=== PATIENT | female | born 1995 | race Caucasian/White ===

== ENCOUNTER 2016-10-24 04:20 | Inpatient (IN) | payer BC, OTHER ==
[~2016-10-24] VITALS: Ht 160 cm; Wt 70.0 kg
[~2016-10-24 04:20] MED LIST: BCPILLS PO; ESCI1TAB10 PO
[2016-10-24] MEDS ORDERED: KETOROLAC TROMETHAMINE 30 MG/ML VIAL IV STA (04:36)
[2016-10-24] MEDS ORDERED: SODIUM CHLORIDE 0.9% 1000ML 1,000 ML IV STA (04:36)
[2016-10-24] MEDS ORDERED: ONDANSETRON INJ 2 MG/ML 2 ML VIAL IV STA ×3 (04:36→07:46)
[2016-10-24] MEDS ORDERED: HYDROmorphone INJ 1 MG/ML SYR IV STA ×2 (04:36→05:55)
--- NOTE | 2016-10-24 04:42 | EMERGENCY ROOM VISIT NOTE ---
History Report prepared by Sofia: Rox Stewart Under the Supervision of: Dr. Rey Noel M.D. First contact with patient: 04:28 Chief Complaint: FLANK PAIN Stated Complaint: SEVERE PAIN LEFT SIDE,KIDNEY,VOMITING History of Present Illness The patient is a 21 year old female who presents to the Emergency Room with complaints of severe and persistent left flank pain starting about 4 and a half hours ago. She notes pain radiation into her groin. She also complains of nausea and vomiting. She took anti-nausea medication but denies taking any medication for the pain. She has a previously known 1.5 mm intrarenal stone on CT scan. The patient denies chest pain, shortness of breath, or any other complaints. She denies any chance of . Source of History: patient Onset: about 4 and a half hours ago Position: other (left flank) Symptom Intensity: severe Timing: other (persistent) Associated Symptoms: + nausea, + vomiting, No SOB, No chest pain Review of Systems See HPI for pertinent positives & negatives. A total of 10 systems reviewed and were otherwise negative. Past Medical & Surgical Medical Problems: (1) Abdominal pain (2) Abdominal pain (3) Cramping complicating , antepartum (4) Elevated blood pressure complicating , antepartum (5) Hyperthyroidism (6) Mild preeclampsia (7) Nausea & vomiting (8) Nausea & vomiting (9) No leakage of amniotic fluid into vagina (10) Ovarian cyst (11) (12) (13) with abdominal pain of right lower quadrant, antepartum (14) labor (15) Second trimester (16) Uterine contractions (17) Vaginitis complicating current (18) Vomiting complicating (19) Vomiting complicating Family History Cancer Diabetes mellitus FH: seizures Hypertension Kidney stone Social History Smoking Status: Never Smoker Alcohol Use: occasionally Drug Use: none Marital Status: in relationship Housing Status: lives with family Occupation Status: employed Current/Historical Medications Scheduled Control Pills ( Control Pills), 1 TAB PO WK Ciprofloxacin Hcl (Cipro), 500 MG PO BID Escitalopram Oxalate (Lexapro), 40 MG PO QAM Allergies Coded Allergies: No Known Allergies (Unverified , 10/24/16) Physical Exam Vital Signs Date Time Temp Pulse Resp B/P Pulse Ox O2 Delivery O2 Flow Rate FiO2 10/24/16 06:24 98 20 114/75 98 Room Air 10/24/16 04:23 36.8 102 20 113/78 98 Room Air Physical Exam GENERAL: Patient is uncomfortable appearing and in moderate distress. HEENT: No acute trauma, normocephalic atraumatic, mucous membranes moist, no nasal congestion, no scleral icterus. NECK: No stridor, no adenopathy, no meningismus, trachea is midline. LUNGS: No dyspnea. Clear to auscultation and equal bilaterally. No wheeze, no rhonchi. HEART: Regular rate and rhythm. No murmurs, rubs, gallops appreciated. ABDOMEN: Soft, nontender, bowel sounds positive, no masses appreciated, no peritonitis. BACK: No midline tenderness, no CVA tenderness EXTREMITIES: Normal motion all extremities, no cyanosis, no edema. NEUROLOGIC: Alert and oriented, no acute motor or sensory deficits, no focal weakness, cranial nerves grossly intact. SKIN: No rash, no jaundice, no diaphoresis. Medical Decision & Procedures ER Provider Diagnostic Interpretation: US results as stated below per interpretation by me and the radiologist: US RENAL Prior from 06/26/16 No hydronephrosis. Small 2-4 millimeters renal calculi bilaterally. Nonobstructing. Decompressed urinary bladder. Radiologist: Lilian Vickers MD Laboratory Results 10/24/16 04:35 Red Blood Count 5.20, Mean Corpuscular Volume 86.3, Mean Corpuscular Hemoglobin 30.6, Mean Corpuscular Hemoglobin Concent 35.4, Mean Platelet Volume 10.5, Neutrophils (%) (Auto) 89.7, Lymphocytes (%) (Auto) 3.6, Monocytes (%) (Auto) 6.5, Eosinophils (%) (Auto) 0.0, Basophils (%) (Auto) 0.1, Neutrophils # (Auto) 12.08, Lymphocytes # (Auto) 0.49, Monocytes # (Auto) 0.87, Eosinophils # (Auto) 0.00, Basophils # (Auto) 0.01 10/24/16 04:35 Test 10/24/16 04:35 10/24/16 05:45 White Blood Count 13.47 K/uL (4.8-10.8) Red Blood Count 5.20 M/uL (4.2-5.4) Hemoglobin 15.9 g/dL (12.0-16.0) Hematocrit 44.9 % (37-47) Mean Corpuscular Volume 86.3 fL (80-100) Mean Corpuscular Hemoglobin 30.6 pg (25-34) Mean Corpuscular Hemoglobin Concent 35.4 g/dl (32-36) Platelet Count 192 K/uL (130-400) Mean Platelet Volume 10.5 fL (7.4-10.4) Neutrophils (%) (Auto) 89.7 % Lymphocytes (%) (Auto) 3.6 % Monocytes (%) (Auto) 6.5 % Eosinophils (%) (Auto) 0.0 % Basophils (%) (Auto) 0.1 % Neutrophils # (Auto) 12.08 K/uL (1.4-6.5) Lymphocytes # (Auto) 0.49 K/uL (1.2-3.4) Monocytes # (Auto) 0.87 K/uL (0.11-0.59) Eosinophils # (Auto) 0.00 K/uL (0-0.5) Basophils # (Auto) 0.01 K/uL (0-0.2) RDW Standard Deviation 37.9 fL (36.4-46.3) RDW Coefficient of Variation 11.9 % (11.5-14.5) Immature Granulocyte % (Auto) 0.1 % Immature Granulocyte # (Auto) 0.02 K/uL (0.00-0.02) Anion Gap 14.0 mmol/L (3-11) Est Creatinine Clear Calc Drug Dose 99.3 ml/min Estimated GFR () 116.0 Estimated GFR (Non- 100.1 BUN/Creatinine Ratio 17.2 (10-20) Calcium Level 9.3 mg/dl (8.5-10.1) Total Bilirubin 0.6 mg/dl (0.2-1) Direct Bilirubin 0.1 mg/dl (0-0.2) Aspartate Amino Transf (AST/SGOT) 13 U/L (15-37) Alanine Aminotransferase (ALT/SGPT) 23 U/L (12-78) Alkaline Phosphatase 82 U/L (45-117) Total Protein 8.5 gm/dl (6.4-8.2) Albumin 4.2 gm/dl (3.4-5.0) Lipase 210 U/L (73-393) Urine Color DK YELLOW Urine Appearance CLEAR (CLEAR) Urine pH 5.0 (4.5-7.5) Urine Specific [place] 1.032 (1.000-1.030) Urine Protein NEG (NEG) Urine Glucose (UA) NEG (NEG) Urine Ketones TRACE (NEG) Urine Occult Blood NEG (NEG) Urine Nitrite NEG (NEG) Urine Bilirubin NEG (NEG) Urine Urobilinogen NEG (NEG) Urine Leukocyte Esterase NEG (NEG) Urine WBC (Auto) 1-5 /hpf (0-5) Urine RBC (Auto) 0-4 /hpf (0-4) Urine Hyaline Casts (Auto) 1-5 /lpf (0-5) Urine Epithelial Cells (Auto) >30 /lpf (0-5) Urine Bacteria (Auto) 1+ (NEG) Urine Test NEG (NEG) Laboratory results as reviewed by me. Medications Administered Medications (Trade) Dose Ordered Sig/[place] Route Start Time Stop Time Status Last Admin Dose Admin Sodium Chloride (Nss 1000ml) 1,000 ml @ 999 mls/hr Q1H1M STAT IV 10/24/16 04:36 10/24/16 05:36 DC 10/24/16 04:40 999 MLS/HR Ketorolac Tromethamine (Toradol Inj) 30 mg NOW STAT IV 10/24/16 04:36 10/24/16 04:38 DC 10/24/16 04:42 30 MG Ondansetron HCl (Zofran Inj) 4 mg NOW STAT IV 10/24/16 04:36 10/24/16 04:38 DC 10/24/16 04:41 4 MG Hydromorphone HCl (Dilaudid Inj) 1 mg NOW STAT IV 10/24/16 04:36 10/24/16 04:38 DC 10/24/16 04:42 1 MG Hydromorphone HCl (Dilaudid Inj) 1 mg NOW STAT IV 10/24/16 05:55 10/24/16 05:56 DC 10/24/16 06:13 1 MG Ceftriaxone Sodium (Rocephin Inj) 1 gm NOW STAT IV 10/24/16 06:21 10/24/16 06:23 DC 10/24/16 06:32 1 GM Oxycodone HCl (Roxicodone Immediate Rel 5MG Home Pack) 1 homepack UD ONCE PO 10/24/16 06:30 10/24/16 07:47 DC 10/24/16 06:31 1 HOMEPACK Ondansetron HCl (Zofran Inj) 4 mg NOW STAT IV 10/24/16 06:57 10/24/16 06:58 DC 10/24/16 07:05 4 MG Ondansetron HCl (ZOFRAN ODT 4MG Home Pack) 1 homepack UD ONCE PO 10/24/16 07:00 10/24/16 07:47 DC 10/24/16 07:05 1 HOMEPACK ED Course 0428: The patient was evaluated in room B06. A complete history and physical exam was performed. 0436: Dilaudid Inj 1 mg IV, Zofran Inj 4 mg IV, Toradol Inj 30 mg IV, Sodium Chloride 1000 ml @ 999 mls/hr IV 0555: Dilaudid Inj 1 mg IV 0621: Reevaluated the patient. Discussed results and discharge instructions: She verbalized understanding and agreement. She is complaining of burning with urination. I discussed with her options and she wants to be treated for a UTI. The patient is ready for discharge. Rocephin Inj 1 gm IV 0630: Oxycodone HCl 1 homepack PO 0657: The patient had a vomiting episode. Zofran Inj 4 mg IV 0700: Ondansetron HCl 1 homepack PO Medical Decision Differential: Renal Colic, Pyelonephritis, Hydronephrosis, Appendicitis, Diverticulitis, Retroperitoneal Bleed/Infection, Aortic Pathology, MSK, Neurologic Pathology, amongst other pathologies entertained. 21 yr old female with left flank pain acutely this evening. Associated nausea. She has had this several times previously over last few years with previous visits for same. No clear cause of these episodes other than possibly pyelonephritis. Extensive US, CT, Labs done over last few years without acute findings. WBC is mildly elevated and patient after some time started saying she was having urinary burning. Vitals good without fever. I think it is unlikely this is UTI, but with elevated WBC and UTI symptoms feel that treating is somewhat necessary, thus Rocephin given with plan to do several days Cipro. She is not septic and I do not see any indication currently for admission, though understand she previously has not tolerated outpatient and was brought in in past for this without clear cause of symptoms. Attempted to get patient home discharged, however unfortunately patient with worsening nausea/vomiting. Will have to bring her in for further workup/ monitoring/treatment. Discussed with Dr Portillo of [facility] [place] around 7:50am for evaluation. Impression Primary Impression: Acute left flank pain Additional Impression: UTI symptoms Scribe Attestation The scribe's documentation has been prepared under my direction and personally reviewed by me in its entirety. I confirm that the note above accurately reflects all work, treatment, procedures, and medical decision making performed by me. Departure Information Dispostion Home / Self-Care Prescriptions Ciprofloxacin Hcl (CIPRO) 500 Mg Tab 500 MG PO BID, #10 TAB Prov: Rey Noel M.D. 10/24/16 Referrals No Doctor, Assigned (PCP) Forms HOME CARE DOCUMENTATION FORM, IMPORTANT VISIT INFORMATION Patient Instructions A Signature Page, ED Flank Pain Uncertain Cause, My [facility] Additional Instructions You have received narcotic pain medications. These medications may cause drowsiness and should not be used with other sedative medications. Do not drive , drink alcohol, perform dangerous activities, nor make important decisions after taking these medications. emt intermediate use or inappropriate use may lead to addiction.
[2016-10-24 04:52] LABS: BASO % 0.1 %; BASO ABS # 0.01 K/uL (0-0.2); COMPLETE YES; HEMATOCRIT 44.9 % (37-47); IG% 0.1 %; LYMPH % 3.6 %; LYMPH ABS # 0.49 K/uL (1.2-3.4); MEAN CELL VOLUME 86.3 fL (80-100); MEAN CORPUSCULAR HEMOGLOBIN 30.6 pg (25-34); MEAN CORPUSCULAR HGB CONC 35.4 g/dl (32-36); MEAN PLATELET VOLUME 10.5 fL (7.4-10.4); MONO % 6.5 %; NEUT % 89.7 %; PLATELET COUNT 192 K/uL (130-400); WHITE BLOOD COUNT 13.47 K/uL (4.8-10.8)
[2016-10-24 05:13] LABS: BUN/CREATININE RATIO 17.2 (10-20); CALCIUM 9.3 mg/dl (8.5-10.1); CREATININE 0.83 mg/dl (0.60-1.20); POTASSIUM 3.9 mmol/L (3.5-5.1)
[2016-10-24 06:07] LABS: URINE APPEARANCE CLEAR (CLEAR); URINE BILIRUBIN NEG (NEG); URINE COLOR DK YELLOW; URINE EPITHELIAL CELL AUTO >30 /lpf (0-5); URINE NITRITE NEG (NEG); URINE SPECIFIC GRAVITY 1.032 (1.000-1.030); UROBILINOGEN NEG (NEG); ZZUR CULT IF INDIC CLEAN CATCH YES
[2016-10-24 06:08] LABS: MANUAL MICROSCOPIC REQUIRED? NO; REVIEW REQ? NO
[2016-10-24] MEDS ORDERED: CEFTRIAXONE SOD INJ 1 GM ADDVIAL IV STA (06:21)
[2016-10-24] MEDS ORDERED: CIPR-255 PO (06:23)
[2016-10-24] MEDS ORDERED: OXYCODONE IR HOME PACK PO ONE (06:30)
[2016-10-24] MEDS ORDERED: ONDANSETRON HOME PACK 4MG OD TAB PO ONE (07:00)
--- NOTE | 2016-10-24 07:16 | DIAGNOSTIC IMAGING REPORT ---
ULTRASOUND KIDNEYS AND BLADDER CLINICAL HISTORY: Left flank pain. COMPARISON STUDY: Renal ultrasound dated 06/26/2016. Abdominal CT dated 10/31/2015. TECHNIQUE: Real-time, grayscale, and color flow sonography of the kidneys and bladder is performed. Images are reviewed in the transverse and longitudinal planes. FINDINGS: Kidneys: The kidneys are normal in size and echotexture. The right kidney measures 11.6 x 3.4 x 4.9 cm and the left kidney measures 10.4 x 4.4 x 5.0 cm. There is no hydronephrosis. Small bilateral nonobstructing renal calculi are suspected. There is no sonographic evidence of contour deforming renal mass lesion. No perinephric fluid is identified. Bladder: The bladder is decompressed and not well assessed. Ureteral jets could not be evaluated. IMPRESSION: 1. The kidneys are normal in size and without hydronephrosis. 2. Small bilateral nonobstructing calculi are suspected. 3. The bladder was decompressed and not well assessed. Electronically signed by: Lawrence Olivier M.D. 10/24/2016 7:14 AM Dictated Date/Time: 10/24/2016 7:12 AM
[2016-10-24 08:17] VITALS: O2SAT 100; Ht 160 cm; Wt 70.0 kg
[2016-10-24] MEDS ORDERED: CITA40TA12 PO (09:03)
[2016-10-24] MEDS ORDERED: BUSP5TAB59 PO ×2 (09:03)
--- NOTE | 2016-10-24 09:38 | History and Physical ---
History & Physical Date & Time of Service: Oct 24, 2016 at 09:11 Chief Complaint: Severe Pain Left Side,Kidney,Vomiting Primary Care Physician: Megan Tatum Desiree History of Present Illness Source: patient 21 yo F presents to the ER today with intractable nausea and vomiting along with watery diarrhea since midnight last night. She also reports acute left flank pain with sharp, stabbing pain that radiates around to her groin along with dysuria and increased urinary urgency. She reports symptoms starting on Sunday (5 days ago) with some abdominal cramping, body aches, and vomiting twice that day. 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 She felt completely better on Sunday and Sunday (yesterday), however, symptoms started again overnight as previously described. She has a 2 yo and thinks he is coming down with something. She also has treated multiple people with GI illnesses at work and is involved in patient care as a INSURANCE RISK ANALYST. She denies eating anything out of the ordinary and had spaghetti yesterday as her only meal. She denies any recent travel history. She has a h/o kidney stones, which has been present long-term and has nev3er passed. There are small stones in the kidneys bilaterally today on renal u/s but no evidence of hydronephrosis. Other ROS includes presence of a frontal headache, mucous in stool along with a description of "it looks like pee." She denies chest pain, trouble breathing, cough, sore throat, earaches, nasal congestion. She reports regular periods since coming of the Patch and her Hcg is negative today. She reports similar symptoms occurring one year ago at which time she was admitted for pyelonephritis after outpatient treatment failure with Cipro. Of note, she also had small renal stones noted at that time. Past Medical/Surgical History Medical Problems: (1) Abdominal pain Status: Resolved (2) Abdominal pain Status: Resolved (3) Cramping complicating , antepartum Status: Resolved (4) Elevated blood pressure complicating , antepartum Status: Resolved (5) Hyperthyroidism Status: Chronic (6) Mild preeclampsia Status: Resolved (7) Nausea & vomiting Status: Resolved (8) Nausea & vomiting Status: Resolved (9) No leakage of amniotic fluid into vagina Status: Resolved (10) Ovarian cyst Status: Chronic (11) Status: Resolved (12) Status: Resolved (13) with abdominal pain of right lower quadrant, antepartum Status: Resolved (14) labor Status: Resolved (15) Second trimester Status: Resolved (16) Uterine contractions Status: Resolved (17) Vaginitis complicating current Status: Resolved (18) Vomiting complicating Status: Resolved (19) Vomiting complicating Status: Resolved Family History Cancer Diabetes mellitus FH: seizures Hypertension Kidney stone Social History Smoking Status: Never Smoker Smokeless Tobacco Use: No Alcohol Use: socially Drug Use: none Marital Status: in relationship Housing status: lives with family Occupational Status: employed Immunizations History of Influenza Vaccine: Yes Influenza Vaccine Date: Jul 15, 2015 History of Tetanus Vaccine?: Yes Tetanus Immunization Date: Sep 12, 2012 History of Pneumococcal: No History of Hepatitis B Vaccine: Yes Hepatitis Immunization Date: May 09, 1995 Multi-Drug Resistant Organisms History of MDRO: No Allergies Coded Allergies: No Known Allergies (Unverified , 10/24/16) Home Medications Scheduled Buspirone Hcl (Buspirone Hcl), 5 MG PO HS Buspirone Hcl (Buspirone Hcl), 2.5 MG PO QAM Citalopram Hydrobromide (Celexa), 40 MG PO DAILY Review of Systems Constitutional: + chills, + fatigue, + fever Eyes: No problem reported ENT: No problem reported Respiratory: No cough, No shortness of breath Cardiovascular: No chest pain Abdomen: + diarrhea, + nausea, + pain, + vomiting, No GI bleeding Genitourinary - Female: + dysuria, + urinary urgency, No dysmenorrhea, No hematuria, No menorrhagia, No metrorrhagia, No urinary frequency Neurologic: No numbness/tingling Allergic / Immunologic: No food allergies Physical Exam Vital Signs Date Time Temp Pulse Resp B/P Pulse Ox O2 Delivery O2 Flow Rate FiO2 10/24/16 08:17 100 Room Air 10/24/16 08:01 104 16 145/88 100 Room Air 10/24/16 06:24 98 20 114/75 98 Room Air 10/24/16 04:23 36.8 102 20 113/78 98 Room Air GEN: WNWD, in no acute distress, alert and appropriate HEENT: NC/AT, PERRL, normal sclerae CARDIO: reg rate, S1/2 heard without m/g/r LUNGS: CTA bilaterally, no crackles, rales or wheezes, good diaphragmatic excursion ABD: soft, diffuse mild tenderness without guarding, non-distended, +BS, +CVA tenderness on left side EXTREMITY: no LE swelling or edema, extremities are warm and well-perfused NEURO: CN 2-12 intact, sensation intact throughout, no gross focal deficits MUSC: 5/5 strength throughout, no focal deficits, moves around bed easily SKIN: warm and dry Diagnostics Laboratory Results Results Past 24 Hours Test 10/24/16 04:35 10/24/16 05:45 Range/Units White Blood Count 13.47 4.8-10.8 K/uL Red Blood Count 5.20 4.2-5.4 M/uL Hemoglobin 15.9 12.0-16.0 g/dL Hematocrit 44.9 37-47 % Mean Corpuscular Volume 86.3 80-100 fL Mean Corpuscular Hemoglobin 30.6 25-34 pg Mean Corpuscular Hemoglobin Concent 35.4 32-36 g/dl Platelet Count 192 130-400 K/uL Mean Platelet Volume 10.5 7.4-10.4 fL Neutrophils (%) (Auto) 89.7 % Lymphocytes (%) (Auto) 3.6 % Monocytes (%) (Auto) 6.5 % Eosinophils (%) (Auto) 0.0 % Basophils (%) (Auto) 0.1 % Neutrophils # (Auto) 12.08 1.4-6.5 K/uL Lymphocytes # (Auto) 0.49 1.2-3.4 K/uL Monocytes # (Auto) 0.87 0.11-0.59 K/uL Eosinophils # (Auto) 0.00 0-0.5 K/uL Basophils # (Auto) 0.01 0-0.2 K/uL RDW Standard Deviation 37.9 36.4-46.3 fL RDW Coefficient of Variation 11.9 11.5-14.5 % Immature Granulocyte % (Auto) 0.1 % Immature Granulocyte # (Auto) 0.02 0.00-0.02 K/uL Sodium Level 140 136-145 mmol/L Potassium Level 3.9 3.5-5.1 mmol/L Chloride Level 105 98-107 mmol/L Carbon Dioxide Level 21 21-32 mmol/L Anion Gap 14.0 3-11 mmol/L Blood Urea Nitrogen 14 7-18 mg/dl Creatinine 0.83 0.60-1.20 mg/dl Est Creatinine Clear Calc Drug Dose 99.3 ml/min Estimated GFR () 116.0 Estimated GFR (Non- 100.1 BUN/Creatinine Ratio 17.2 10-20 Random Glucose 131 70-99 mg/dl Calcium Level 9.3 8.5-10.1 mg/dl Total Bilirubin 0.6 0.2-1 mg/dl Direct Bilirubin 0.1 0-0.2 mg/dl Aspartate Amino Transf (AST/SGOT) 13 15-37 U/L Alanine Aminotransferase (ALT/SGPT) 23 12-78 U/L Alkaline Phosphatase 82 45-117 U/L Total Protein 8.5 6.4-8.2 gm/dl Albumin 4.2 3.4-5.0 gm/dl Lipase 210 73-393 U/L Urine Color DK YELLOW Urine Appearance CLEAR CLEAR Urine pH 5.0 4.5-7.5 Urine Specific [place] 1.032 1.000-1.030 Urine Protein NEG NEG Urine Glucose (UA) NEG NEG Urine Ketones TRACE NEG Urine Occult Blood NEG NEG Urine Nitrite NEG NEG Urine Bilirubin NEG NEG Urine Urobilinogen NEG NEG Urine Leukocyte Esterase NEG NEG Urine WBC (Auto) 1-5 0-5 /hpf Urine RBC (Auto) 0-4 0-4 /hpf Urine Hyaline Casts (Auto) 1-5 0-5 /lpf Urine Epithelial Cells (Auto) >30 0-5 /lpf Urine Bacteria (Auto) 1+ NEG Urine Test NEG NEG Microbiology Results 10/24/16 Blood Culture, Halie Batch Pending 10/24/16 Blood Culture, Halie Batch Pending 10/24/16 Urine Culture, Received Pending Diagnostic Radiology ULTRASOUND KIDNEYS AND BLADDER Kidneys: The kidneys are normal in size and echotexture. The right kidney measures 11.6 x 3.4 x 4.9 cm and the left kidney measures 10.4 x 4.4 x 5.0 cm. There is no hydronephrosis. Small bilateral nonobstructing renal calculi are suspected. There is no sonographic evidence of contour deforming renal mass lesion. No perinephric fluid is identified. Bladder: The bladder is decompressed and not well assessed. Ureteral jets could not be evaluated. IMPRESSION: 1. The kidneys are normal in size and without hydronephrosis. EKG No EKG performed Impression Assessment and Plan 21 yoF with acute pyelonephritis on the left side 1. 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 Rocephin started, supportive care with clears, IVF , pain control and antiemetics. In order to spare her CT scan (multiple imaging studies in the past) a renal US was performed revealing no hydronephrosis and evidence of small, non-obstructing renal calculi. There is no blood in the UA. UCx pending. She is afebrile at this time, but with h/o high fever and chills today will obtain blood cultures. Stool studies ordered- no h/o abx use in last 3 months (reported). If no improvement overnight will consider CT a/p for further evaluation. 2. Anxiety-cont Celexa and Buspar 3. Leukocytosis 2/2 #1-see plan above Nutrition-clears for now, advance as tolerated DCT-SCDs/ambulatory Dispo-to Med/Surg for observation overnight Pamela Portillo DO [facility] Hospitalist Level of Care Med/Surg Advanced Directives Existing Advance Directive: No Existing Living Will: No Existing Power of Entertainment Director: No VTE Prophylaxis VTE Risk Assessment Done? Y/N: Yes Risk Level: Low Given or contraindicated: SCD's Social Service Consult None Apply
[2016-10-24 10:00] VITALS: BP 122/77; PULSE 99; TEMP 36.9; O2SAT 98
[2016-10-24] MEDS: SODIUM CHLORIDE 0.9% 1000ML 1,000 ML IV SCH ×2 (10:42→18:12)
[2016-10-24] MEDS ORDERED: IV FLUIDS COMPLETED PRN (11:00)
[2016-10-24] MEDS: KETOROLAC TROMETHAMINE 30 MG/ML VIAL IV PRN ×2 (12:02→20:33)
[2016-10-24 15:11] VITALS: BP 97/57; PULSE 93; TEMP 36.8; O2SAT 98
[2016-10-24] MEDS: PROMETHAZINE HCL INJ 12.5 MG in SODIUM CHLORIDE 0.9% 50ML 50 ML IV PRN (15:56)
[2016-10-24] MEDS: ACETAMINOPHEN 325 MG TAB PO PRN (15:59)
[2016-10-24 23:30] VITALS: BP 90/55; PULSE 67; TEMP 36.6; O2SAT 99
[2016-10-25 04:09] VITALS: BP 95/62; PULSE 84; TEMP 36.8; O2SAT 99
[2016-10-25] MEDS: PROMETHAZINE HCL INJ 12.5 MG in SODIUM CHLORIDE 0.9% 50ML 50 ML IV PRN ×2 (04:25→12:23)
[2016-10-25] MEDS: CEFTRIAXONE SOD INJ 1 GM in DEXTROSE 5% ADD-VANTAGE 50ML 50 ML IV SCH (05:45)
[2016-10-25 07:33] VITALS: BP 103/70; PULSE 80; TEMP 36.7; O2SAT 94
[2016-10-25 08:00] VITALS: O2SAT 94
[2016-10-25 08:16] LABS: BLOOD UREA NITROGEN 5 mg/dl (7-18); BUN/CREATININE RATIO 9.2 (10-20); CALCIUM 8.1 mg/dl (8.5-10.1); CARBON DIOXIDE 25 mmol/L (21-32); CHLORIDE 110 mmol/L (98-107); GLUCOSE 88 mg/dl (70-99); MAGNESIUM 1.7 mg/dl (1.8-2.4); POTASSIUM 3.5 mmol/L (3.5-5.1); SODIUM 144 mmol/L (136-145)
[2016-10-25] MEDS: CITALOPRAM 40 MG TAB PO SCH (08:36)
[2016-10-25 08:44] LABS: HEMATOCRIT 34.5 % (37-47); MEAN CELL VOLUME 88.9 fL (80-100); MEAN CORPUSCULAR HEMOGLOBIN 29.4 pg (25-34); MEAN PLATELET VOLUME 10.5 fL (7.4-10.4); PLATELET COUNT 113 K/uL (130-400); RED BLOOD COUNT 3.88 M/uL (4.2-5.4); WHITE BLOOD COUNT 2.12 K/uL (4.8-10.8)
[2016-10-25 08:45] LABS: COMPLETE YES; EOS % 0.5 %; LYMPH ABS # 0.89 K/uL (1.2-3.4); MONO % 14.6 %; NEUT % 42.9 %; PLT ESTIMATE DECREASED
[2016-10-25 09:07] LABS: CREATININE 0.53 mg/dl (0.60-1.20)
[2016-10-25 09:09] LABS: HEMATOCRIT 34.2 % (37-47); MEAN CELL VOLUME 89.3 fL (80-100); MEAN CORPUSCULAR HEMOGLOBIN 29.2 pg (25-34); MEAN CORPUSCULAR HGB CONC 32.7 g/dl (32-36); PLATELET COUNT 116 K/uL (130-400); RED BLOOD COUNT 3.83 M/uL (4.2-5.4); WHITE BLOOD COUNT 2.05 K/uL (4.8-10.8)
[2016-10-25 09:31] LABS: BLOOD UREA NITROGEN 5 mg/dl (7-18); CALCIUM 8.1 mg/dl (8.5-10.1); CARBON DIOXIDE 22 mmol/L (21-32); CHLORIDE 112 mmol/L (98-107); GLUCOSE 81 mg/dl (70-99); MAGNESIUM 1.7 mg/dl (1.8-2.4); POTASSIUM 3.5 mmol/L (3.5-5.1); SODIUM 145 mmol/L (136-145)
[2016-10-25 09:35] LABS: BASO % 0.5 %; BASO ABS # 0.01 K/uL (0-0.2); COMPLETE YES; LYMPH % 36.6 %; LYMPH ABS # 0.75 K/uL (1.2-3.4); NEUT % 43.9 %
[2016-10-25] MEDS ORDERED: MAGNESIUM SULFATE IV SCH (10:15)
[2016-10-25] MEDS ORDERED: SODIUM CHLORIDE IV SCH (10:15)
[2016-10-25] MEDS ORDERED: CALCIUM GLUCONATE IV SCH (10:15)
[2016-10-25] MEDS ORDERED: [UNRECOGNIZED DRUG - OTHER] IV SCH (10:15)
[2016-10-25] MEDS: KETOROLAC TROMETHAMINE 30 MG/ML VIAL IV PRN ×2 (10:58→21:44)
[2016-10-25 11:19] VITALS: BP_SYST 110; BP_SYST 95; BP_DIAS 60; BP_DIAS 76; PULSE 70; TEMP 36.7; O2SAT 98
[2016-10-25] MEDS ORDERED: NAPROXEN 250 MG TAB PO PRN (12:00)
[2016-10-25] MEDS: PHENAZOPYRIDINE HCL 100 MG TAB PO SCH ×2 (15:09→20:27)
[2016-10-25 15:38] VITALS: BP 115/87; PULSE 70; TEMP 36.8; O2SAT 98
[2016-10-25 19:21] VITALS: BP 109/71; PULSE 64; TEMP 36.8; O2SAT 96
--- NOTE | 2016-10-25 20:39 | Progress Note ---
Medicine Progress Note Date & Time of Visit: Oct 25, 2016 at 20:29. Subjective Persistent dysuria reported Chest pain that began this morning, constant non-radiating, achy Three episodes of diarrhea this morning Some nausea but no vomiting since admission yesterday am. Afebrile and no chills Tolerating clears and soda last night and this morning. Objective Last 8 Hrs Date Time Temp Pulse Resp B/P Pulse Ox O2 Delivery O2 Flow Rate FiO2 10/25/16 19:21 36.8 64 18 109/71 96 Room Air 10/25/16 16:00 Room Air 10/25/16 15:38 36.8 70 16 115/87 98 Room Air Physical Exam: GEN: WNWD, in no acute distress, alert and appropriate, ambulatory HEENT: NC/AT, normal sclerae CARDIO: reg rate, S1/2 heard without m/g/r LUNGS: CTA bilaterally, no crackles, rales or wheezes, good diaphragmatic excursion ABD: soft, non-tender, non-distended, no rebound or guarding, L CVA less tender today CHEST WALL: R anterior chest is very TTP over pec major muscles, intercostals, and over into shoulder/trap area on exam. No LAD present. EXTREMITY: RP and DP palpable 2+ bilat, no LE swelling or edema, extremities are warm and well-perfused NEURO: CN 2-12 intact, sensation intact throughout MUSC: 5/5 strength throughout, no focal deficits SKIN: warm and dry Laboratory Results: Last 24 Hours Test 10/25/16 07:13 10/25/16 08:30 White Blood Count 2.12 K/uL 2.05 K/uL Red Blood Count 3.88 M/uL 3.83 M/uL Hemoglobin 11.4 g/dL 11.2 g/dL Hematocrit 34.5 % 34.2 % Mean Corpuscular Volume 88.9 fL 89.3 fL Mean Corpuscular Hemoglobin 29.4 pg 29.2 pg Mean Corpuscular Hemoglobin Concent 33.0 g/dl 32.7 g/dl Platelet Count 113 K/uL 116 K/uL Mean Platelet Volume 10.5 fL 11.0 fL Neutrophils (%) (Auto) 42.9 % 43.9 % Lymphocytes (%) (Auto) 42.0 % 36.6 % Monocytes (%) (Auto) 14.6 % 18.0 % Eosinophils (%) (Auto) 0.5 % 1.0 % Basophils (%) (Auto) 0.0 % 0.5 % Neutrophils # (Auto) 0.91 K/uL 0.90 K/uL Lymphocytes # (Auto) 0.89 K/uL 0.75 K/uL Monocytes # (Auto) 0.31 K/uL 0.37 K/uL Eosinophils # (Auto) 0.01 K/uL 0.02 K/uL Basophils # (Auto) 0.00 K/uL 0.01 K/uL RDW Standard Deviation 40.0 fL 40.0 fL RDW Coefficient of Variation 12.4 % 12.4 % Immature Granulocyte % (Auto) 0.0 % 0.0 % Immature Granulocyte # (Auto) 0.00 K/uL 0.00 K/uL Platelet Estimate DECREASED Sodium Level 144 mmol/L 145 mmol/L Potassium Level 3.5 mmol/L 3.5 mmol/L Chloride Level 110 mmol/L 112 mmol/L Carbon Dioxide Level 25 mmol/L 22 mmol/L Anion Gap 9.0 mmol/L 11.0 mmol/L Blood Urea Nitrogen 5 mg/dl 5 mg/dl Creatinine 0.53 mg/dl 0.50 mg/dl Est Creatinine Clear Calc Drug Dose 155.5 ml/min 164.8 ml/min Estimated GFR () > 150.0 > 150.0 Estimated GFR (Non- 134.8 137.4 BUN/Creatinine Ratio 9.2 9.0 Random Glucose 88 mg/dl 81 mg/dl Calcium Level 8.1 mg/dl 8.1 mg/dl Magnesium Level 1.7 mg/dl 1.7 mg/dl Assessment & Plan 21 yoF with acute pyelonephritis on the left side 1. 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 improved clinically, cont supportive care with clears (was advancing diet towards end of day), pain control and antiemetics PRN. In order to spare her CT scan ( multiple imaging studies in the past) a renal US was performed revealing no hydronephrosis and evidence of small, non-obstructing renal calculi. There is no blood in the UA. UCx still pending. She is afebrile overnight. Pyridium started 1/11 for dysuria. 2. Diarrhea likely 2/2 AGE as above-2-3 more episodes again today, normal abdominal exam, c-diff negative. Imodium ordered PRN. Cont supportive care. Nausea is improved 3. Chest pain-began this morning. Likely MSK with multiple recent episodes of dry heaving and possibly slept on it wrong per her reports. No increased work of breathing. Very TTP in several spots in anterior right chest wall and over into traps and neck muscles, also. NSAIDs and heating pad to help with pain for now. 4. Anxiety-cont Celexa and Buspar 5. Leukopenia 2/2 infection-cont treatment as above and monitor CBC in am. Nutrition-clears for now, advance as tolerated DCT-SCDs/ambulatory Dispo-poss to home in am once cultures result and she is more improved clinically. Pamela Portillo DO [facility] Hospitalist Current Inpatient Medications: Current Inpatient Medications Medications (Trade) Dose Ordered Sig/Franklin Route Start Time Stop Time Status Last Admin Dose Admin Acetaminophen (Tylenol Tab) 650 mg Q4H PRN PO 10/24/16 09:00 11/23/16 08:59 10/24/16 15:59 650 MG Buspirone HCl (Buspar Tab) 2.5 mg QAM PO 10/25/16 08:00 11/24/16 08:59 10/25/16 08:36 2.5 MG Buspirone HCl (Buspar Tab) 5 mg HS PO 10/24/16 21:00 11/23/16 20:59 10/24/16 20:31 5 MG Citalopram Hydrobromide 40 mg 40 mg DAILY PO 10/25/16 08:00 11/24/16 08:59 10/25/16 08:36 40 MG Ceftriaxone Sodium 1 gm/ Dextrose 50 ml @ 100 mls/hr Q24H IV 10/25/16 06:00 11/03/16 05:59 10/25/16 05:45 100 MLS/HR Promethazine HCl/ Sodium Chloride (Phenergan Inj/ Nss 50ml) 50.5 ml @ 204 mls/hr Q6H PRN IV 10/24/16 09:15 11/23/16 09:14 10/25/16 12:23 204 MLS/HR Ketorolac Tromethamine (Toradol Inj) 30 mg Q8H PRN IV 10/24/16 09:15 10/27/16 09:14 10/25/16 10:58 30 MG Miscellaneous (Iv Fluids Completed) 1 ea PRN PRN N/A 10/24/16 11:00 10/24/17 10:59 10/25/16 02:34 1 EA Ondansetron HCl (Zofran Inj) 4 mg Q6H PRN IV 10/25/16 11:30 11/24/16 11:29 Phenazopyridine HCl (Pyridium Tab) 100 mg TID PO 10/25/16 14:00 10/28/16 13:59 10/25/16 15:09 100 MG Naproxen (Naprosyn Tab) 500 mg BID PRN PO 10/25/16 12:00 11/24/16 11:59 10/25/16 17:05 500 MG Loperamide HCl (Imodium Cap) 2 mg UD PRN PO 10/25/16 12:15 11/24/16 12:14
[2016-10-25] MEDS ORDERED: NURSING DECISION MEDICATION ORDER SCH (21:45)
[2016-10-25] MEDS ORDERED: COUGH DROP (SUGAR FREE) LOZ 24 LOZ/1 BOX PO PRN (22:00)
[2016-10-26] VITALS (7 sets, daily range): BP systolic 100–118; BP diastolic 62–80; PULSE 61–97; TEMP 36.6–37.7; O2SAT 96–98
[2016-10-26 00:25] LABS: INFLUENZA A PCR Neg for Influ A (NEG); INFLUENZA B PCR Neg for Influ B (NEG)
[2016-10-26] MEDS: CEFTRIAXONE SOD INJ 1 GM in DEXTROSE 5% ADD-VANTAGE 50ML 50 ML IV SCH (05:55)
[2016-10-26] MEDS: KETOROLAC TROMETHAMINE 30 MG/ML VIAL IV PRN (06:03)
[2016-10-26] MEDS: PHENAZOPYRIDINE HCL 100 MG TAB PO SCH ×3 (08:19→20:10)
[2016-10-26] MEDS: CITALOPRAM 40 MG TAB PO SCH (08:20)
[2016-10-26 08:26] LABS: BASO % 0.2 %; BASO ABS # 0.01 K/uL (0-0.2); COMPLETE YES; EOS % 1.3 %; HEMATOCRIT 36.9 % (37-47); LYMPH % 19.7 %; LYMPH ABS # 1.08 K/uL (1.2-3.4); MEAN CELL VOLUME 87.2 fL (80-100); MEAN CORPUSCULAR HEMOGLOBIN 29.8 pg (25-34); MEAN CORPUSCULAR HGB CONC 34.1 g/dl (32-36); MEAN PLATELET VOLUME 10.4 fL (7.4-10.4); MONO % 9.8 %; PLATELET COUNT 130 K/uL (130-400); RED BLOOD COUNT 4.23 M/uL (4.2-5.4); WHITE BLOOD COUNT 5.49 K/uL (4.8-10.8)
[2016-10-26 08:57] LABS: BLOOD UREA NITROGEN 4 mg/dl (7-18); BUN/CREATININE RATIO 7.5 (10-20); CALCIUM 8.6 mg/dl (8.5-10.1); CARBON DIOXIDE 25 mmol/L (21-32); CHLORIDE 109 mmol/L (98-107); CREATININE 0.51 mg/dl (0.60-1.20); GLUCOSE 87 mg/dl (70-99); MAGNESIUM 1.8 mg/dl (1.8-2.4); POTASSIUM 3.4 mmol/L (3.5-5.1); SODIUM 144 mmol/L (136-145)
[2016-10-26] MEDS: ONDANSETRON INJ 2 MG/ML 2 ML VIAL IV PRN ×2 (09:06→16:17)
[2016-10-26] MEDS ORDERED: MoRPHine SULFATE 4 MG/ML 1 ML CARP\\VIAL IV STA (09:22)
[2016-10-26] MEDS: LOPERAMIDE HCL 2 MG CAP PO PRN (09:36)
--- NOTE | 2016-10-26 09:51 | Progress Note ---
Medicine Progress Note Date & Time of Visit: Oct 26, 2016 at 09:23. Subjective Ate ham sandwich last night with no nausea/vomiting or pain. Chest pain has been persistent; we discussed the low prob of blood clot and she is declining CTA at this time. Abdominal pain is sharp and radiating across her mid-lower abdomen with some radiation into the groin, no better with passing flatus but feels better with bowel movement. One episode of vomiting again this morning. Afebrile. No shortness of breath. Flank pain is improved. Ambulatory Objective Last 8 Hrs Date Time Temp Pulse Resp B/P Pulse Ox O2 Delivery O2 Flow Rate FiO2 10/26/16 08:19 36.7 70 18 118/80 98 Room Air 10/26/16 08:00 98 Room Air 10/26/16 04:28 36.7 89 16 100/62 96 Room Air Physical Exam: GEN: WNWD, in mild distress, alert and appropriate, ambulatory HEENT: NC/AT, normal sclerae CARDIO: reg rate, S1/2 heard without m/g/r LUNGS: CTA bilaterally, no crackles, rales or wheezes, good diaphragmatic excursion ABD: soft, diffuse tenderness in mid abdomen, non-distended, L CVA tenderness still present but improved since admission CHEST WALL: R anterior chest is very TTP over pec major muscles, intercostals, and over into shoulder/trap area on exam. Normal shoulder ROM. No LAD present. EXTREMITY: RP and DP palpable 2+ bilat, no LE swelling or edema, extremities are warm and well-perfused NEURO: CN 2-12 intact, sensation intact throughout MUSC: 5/5 strength throughout, no focal deficits SKIN: warm and dry Laboratory Results: Last 24 Hours Test 10/25/16 22:23 10/26/16 08:00 Influenza Type A (RT-PCR) Neg for Influ A Influenza Type B (RT-PCR) Neg for Influ B White Blood Count 5.49 K/uL Red Blood Count 4.23 M/uL Hemoglobin 12.6 g/dL Hematocrit 36.9 % Mean Corpuscular Volume 87.2 fL Mean Corpuscular Hemoglobin 29.8 pg Mean Corpuscular Hemoglobin Concent 34.1 g/dl Platelet Count 130 K/uL Mean Platelet Volume 10.4 fL Neutrophils (%) (Auto) 69.0 % Lymphocytes (%) (Auto) 19.7 % Monocytes (%) (Auto) 9.8 % Eosinophils (%) (Auto) 1.3 % Basophils (%) (Auto) 0.2 % Neutrophils # (Auto) 3.79 K/uL Lymphocytes # (Auto) 1.08 K/uL Monocytes # (Auto) 0.54 K/uL Eosinophils # (Auto) 0.07 K/uL Basophils # (Auto) 0.01 K/uL RDW Standard Deviation 38.9 fL RDW Coefficient of Variation 12.2 % Immature Granulocyte % (Auto) 0.0 % Immature Granulocyte # (Auto) 0.00 K/uL Sodium Level 144 mmol/L Potassium Level 3.4 mmol/L Chloride Level 109 mmol/L Carbon Dioxide Level 25 mmol/L Anion Gap 10.0 mmol/L Blood Urea Nitrogen 4 mg/dl Creatinine 0.51 mg/dl Est Creatinine Clear Calc Drug Dose 161.6 ml/min Estimated GFR () > 150.0 Estimated GFR (Non- 136.5 BUN/Creatinine Ratio 7.5 Random Glucose 87 mg/dl Calcium Level 8.6 mg/dl Magnesium Level 1.8 mg/dl Assessment & Plan 21 yoF with acute pyelonephritis on the left side and superimposed gastroenteritis 1. 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 Improved clinically from this standpoint, afebrile. Pyridium started 10/25 for dysuria. UCx is negative. 2. Diarrhea likely 2/2 AGE as above-2-3 more episodes again today, pain on exam , cdiff and stool culture negative. Ordered more stool studies today including norovirus, rotavirus, H pylori, Giardia. Imodium ordered PRN. Cont supportive care. Morphine for pain. AXR ordered 3. Chest pain-began 10/25. Likely MSK with multiple recent episodes of dry heaving and possibly slept on it wrong per her reports. No increased work of breathing. Very TTP in several spots in anterior right chest wall and over into traps and neck muscles, also. NSAIDs and heating pad to help with pain for now but not successful. Morphine now, CXR. Discussed pros/cons of D-dimer or CT chest and patient declined at this time. This is very low risk. 4. Anxiety-cont Celexa and Buspar 5. Leukopenia 2/2 infection-resolved. 6. Hypokalemia-replacing 3.4 this am. Nutrition-clears for now, advance as tolerated DCT-SCDs/ambulatory Dispo-poss to home in am once able to consistently tolerate food and she is more improved clinically. Pamela Portillo DO [facility] Hospitalist Current Inpatient Medications: Current Inpatient Medications Medications (Trade) Dose Ordered Sig/Franklin Route Start Time Stop Time Status Last Admin Dose Admin Acetaminophen (Tylenol Tab) 650 mg Q4H PRN PO 10/24/16 09:00 11/23/16 08:59 10/24/16 15:59 650 MG Buspirone HCl (Buspar Tab) 2.5 mg QAM PO 10/25/16 08:00 11/24/16 08:59 10/26/16 08:20 2.5 MG Buspirone HCl (Buspar Tab) 5 mg HS PO 10/24/16 21:00 11/23/16 20:59 10/25/16 21:38 5 MG Citalopram Hydrobromide 40 mg 40 mg DAILY PO 10/25/16 08:00 11/24/16 08:59 10/26/16 08:20 40 MG Ceftriaxone Sodium 1 gm/ Dextrose 50 ml @ 100 mls/hr Q24H IV 10/25/16 06:00 11/03/16 05:59 10/26/16 05:55 100 MLS/HR Promethazine HCl/ Sodium Chloride (Phenergan Inj/ Nss 50ml) 50.5 ml @ 204 mls/hr Q6H PRN IV 10/24/16 09:15 11/23/16 09:14 10/25/16 12:23 204 MLS/HR Ketorolac Tromethamine (Toradol Inj) 30 mg Q8H PRN IV 10/24/16 09:15 10/27/16 09:14 10/26/16 06:03 30 MG Miscellaneous (Iv Fluids Completed) 1 ea PRN PRN N/A 10/24/16 11:00 10/24/17 10:59 10/25/16 02:34 1 EA Ondansetron HCl (Zofran Inj) 4 mg Q6H PRN IV 10/25/16 11:30 11/24/16 11:29 10/26/16 09:06 4 MG Phenazopyridine HCl (Pyridium Tab) 100 mg TID PO 10/25/16 14:00 10/28/16 13:59 10/26/16 08:19 100 MG Naproxen (Naprosyn Tab) 500 mg BID PRN PO 10/25/16 12:00 11/24/16 11:59 10/25/16 17:05 500 MG Loperamide HCl (Imodium Cap) 2 mg UD PRN PO 10/25/16 12:15 11/24/16 12:14 Menthol (Nice Ricardo) 1 ricardo PRN PRN PO 10/25/16 22:00 11/24/16 21:59
[2016-10-26] MEDS: POTASSIUM CHLR 10 MEQ / WTR 10 MEQ in PREMIXED WATER 100 ML IV SCH ×2 (10:02→11:56)
--- NOTE | 2016-10-26 10:51 | DIAGNOSTIC IMAGING REPORT ---
PA CHEST WITH ABDOMINAL SERIES CLINICAL HISTORY: Atypical chest pain. Generalized abdominal pain. Diarrhea. Nausea. FINDINGS: A PA chest radiograph is compared to study dated 08/23/2016. The cardiomediastinal silhouette is unremarkable. The lungs and pleural spaces are clear. No pneumothorax is seen. The bony thorax is grossly intact. Supine and erect abdominal radiographs are correlated with abdominal CT dated 10/31/2015. There is a nonobstructed abdominal bowel gas pattern. No evidence of intraperitoneal free air is seen. There is a punctate calcification projecting over the left kidney, likely representing a tiny nonobstructing kidney stone. Additionally, there is a punctate calcification identified along the course of the left ureter between the left transverse processes of L4 and L5. The lumbosacral spine and bony pelvis appear intact. IMPRESSION: 1. No active disease in the chest. 2. Nonobstructed abdominal bowel gas pattern. 3. There is a punctate calcification projecting over the mid left ureter between the left transverse processes of L4 and L5. This may represent a tiny ureteral calculus. Correlation with clinical findings and urinalysis will be required. 4. Suspect an additional punctate nonobstructing calculus in the left kidney. Electronically signed by: Lawrence Olivier M.D. 10/26/2016 10:49 AM Dictated Date/Time: 10/26/2016 10:44 AM
[2016-10-26] MEDS: MoRPHine SULFATE 4 MG/ML 1 ML CARP\\VIAL IV PRN ×2 (12:41→16:21)
[2016-10-26] MEDS: ACETAMINOPHEN 325 MG TAB PO PRN (15:41)
[2016-10-26] MEDS: PROMETHAZINE HCL INJ 12.5 MG in SODIUM CHLORIDE 0.9% 50ML 50 ML IV PRN (19:52)
[2016-10-27] VITALS: O2SAT 98
[2016-10-27 00:15] VITALS: BP 96/56; PULSE 86; TEMP 37.4; O2SAT 96
[2016-10-27] MEDS: LOPERAMIDE HCL 2 MG CAP PO PRN (04:40)
[2016-10-27 04:42] VITALS: BP 91/62; PULSE 81; TEMP 36.7; O2SAT 97
[2016-10-27] MEDS: SODIUM CHLORIDE 0.9% 1000ML 1,000 ML IV SCH ×2 (04:43→08:14)
[2016-10-27] MEDS: CEFTRIAXONE SOD INJ 1 GM in DEXTROSE 5% ADD-VANTAGE 50ML 50 ML IV SCH (05:39)
[2016-10-27 07:24] LABS: BASO % 0.3 %; BASO ABS # 0.02 K/uL (0-0.2); COMPLETE YES; EOS % 0.9 %; HEMATOCRIT 35.4 % (37-47); IG% 0.1 %; LYMPH % 16.2 %; LYMPH ABS # 1.08 K/uL (1.2-3.4); MEAN CORPUSCULAR HEMOGLOBIN 29.7 pg (25-34); MEAN CORPUSCULAR HGB CONC 34.2 g/dl (32-36); MEAN PLATELET VOLUME 10.5 fL (7.4-10.4); MONO % 15.1 %; NEUT % 67.4 %; PLATELET COUNT 143 K/uL (130-400); RED BLOOD COUNT 4.07 M/uL (4.2-5.4); WHITE BLOOD COUNT 6.67 K/uL (4.8-10.8)
[2016-10-27 07:37] VITALS: BP 93/58; PULSE 72; TEMP 36.8; O2SAT 97
[2016-10-27 07:53] LABS: BLOOD UREA NITROGEN 6 mg/dl (7-18); CALCIUM 8.3 mg/dl (8.5-10.1); CARBON DIOXIDE 25 mmol/L (21-32); CHLORIDE 106 mmol/L (98-107); CREATININE 0.51 mg/dl (0.60-1.20); GLUCOSE 91 mg/dl (70-99); POTASSIUM 3.1 mmol/L (3.5-5.1); SODIUM 142 mmol/L (136-145)
[2016-10-27] MEDS ORDERED: TAMSULOSIN HCL 0.4 MG CAP PO SCH (08:00)
[2016-10-27] MEDS: PHENAZOPYRIDINE HCL 100 MG TAB PO SCH ×2 (08:15→14:00)
[2016-10-27] MEDS: CITALOPRAM 40 MG TAB PO SCH (08:15)
[2016-10-27] MEDS ORDERED: POTASSIUM CHLORIDE 20 MEQ TABCR PO SCH (09:45)
[2016-10-27 11:19] VITALS: BP 109/72; PULSE 78; TEMP 36.6; O2SAT 97
[2016-10-27] MEDS ORDERED: FLM4 PO (12:31)
[2016-10-27] MEDS ORDERED: CIPR-255 PO (12:31)
--- NOTE | 2016-10-27 12:40 | Discharge Instructions ---
Discharge Instructions Admission Reason for Admission: Pyelonephritis Discharge Discharge Diagnosis / Problem: acute pyelonephritis Discharge Goals Goal(s): Prevent Disease Progression Activity Recommendations Activity Limitations: resume your previous activity . Instructions / Follow-Up Instructions / Follow-Up Please take all medications as instructed. Please finish entire antibiotic course as prescribed. You had some low potassium during this hospitalization. I would like you to obtain some labwork prior to seeing Dr. Tatum next week so the results can be sent to her. This lab will be non-fasting. Please take Tamsulosin daily until flank pain has completely resolved. This in conjunction with drinking more water daily should help you pass your kidney stone. You have a follow-up appointment with your PCP, Dr. Tatum, for , 11/01 @ 10:50am. Please bring all paperwork from this hospitalization and arrive 15 minutes early. It was a pleasure taking care of you! Call if you have any questions or problems. You can reach a [facility] hospitalist on duty at [facility] 24 hours a day by calling [phone]. Take care of yourself. Pamela Portillo DO [facility] Hospitalist Current Hospital Diet Patient's current hospital diet: Regular Diet Discharge Diet Recommended Diet: Regular Diet Procedures Procedures Performed: None. Pending Studies Studies pending at discharge: yes List of pending studies: Giardia Antigen Norovirus RNA Finalized blood cultures which were initially negative on discharge Medical Emergencies . Who to Call and When: Medical Emergencies: If at any time you feel your situation is an emergency, please call 911 immediately. . Non-Emergent Contact Non-Emergency issues call your: Primary Care Provider . . "Provider Documentation" section prepared by Pamela Portillo. VTE Core Measure Inpt VTE Proph given/why not?: SCD's
[2016-10-27 12:44] VITALS: BP 109/72; PULSE 78; TEMP 36.6; O2SAT 97
[2016-10-30 23:29] LABS: O&P GIARDIA AG NOT DETECTED (NOT DETECTED)
[2016-11-04 10:27] LABS: NOROVIRUS RNA** TC 19098X DETECTED
--- NOTE | 2016-11-06 10:08 | Discharge Summary ---
Discharge Summary Admission Date: Oct 26, 2016 at 16:16 Discharge Date: Oct 27, 2016 Discharge Disposition: Home Principal Diagnosis: Acute pyelonephritis Acute gastroenteritis Atypical chest pain 2/2 muscle strain-resolved Anxiety Leukopenia-resolved Hypokalemia Procedures: None Vaccinations: None. Consultations: None Pending Studies/Follow-Up: see instructions below Medication Reconciliation New Medications: Ciprofloxacin Hcl (Cipro) 500 Mg Tab 500 MG PO BID for 8 Days, #16 TAB Tamsulosin HCl (Tamsulosin HCl) 0.4 Mg Cap 0.4 MG PO QAM for 30 Days, #30 CAP take until flank pain is completely resolved Continued Medications: Buspirone Hcl (Buspirone Hcl) 5 Mg Tab 5 MG PO HS for 30 Days, TAB 2 Refills Buspirone Hcl (Buspirone Hcl) 5 Mg Tab 2.5 MG PO QAM for 30 Days, #15 TAB 2 Refills Citalopram Hydrobromide (Celexa) 40 Mg Tab 40 MG PO DAILY, 1 Refill Admission Information HPI (per Admitting provider): 21 yo F presents to the ER today with intractable nausea and vomiting along with watery diarrhea since midnight last night. She also reports acute left flank pain with sharp, stabbing pain that radiates around to her groin along with dysuria and increased urinary urgency. She reports symptoms starting on Sunday (5 days ago) with some abdominal cramping, body aches, and vomiting twice that day. 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 She felt completely better on Sunday and Sunday (yesterday), however, symptoms started again overnight as previously described. She has a 2 yo and thinks he is coming down with something. She also has treated multiple people with GI illnesses at work and is involved in patient care as a IT SECURITY ADMINISTRATOR. She denies eating anything out of the ordinary and had spaghetti yesterday as her only meal. She denies any recent travel history. She has a h/o kidney stones, which has been present long-term and has nev3er passed. There are small stones in the kidneys bilaterally today on renal u/s but no evidence of hydronephrosis. Other ROS includes presence of a frontal headache, mucous in stool along with a description of "it looks like pee." She denies chest pain, trouble breathing, cough, sore throat, earaches, nasal congestion. She reports regular periods since coming of the Patch and her Hcg is negative today. She reports similar symptoms occurring one year ago at which time she was admitted for pyelonephritis after outpatient treatment failure with Cipro. Of note, she also had small renal stones noted at that time. Physical Exam (per Admitting): GEN: WNWD, in no acute distress, alert and appropriate HEENT: NC/AT, PERRL, normal sclerae CARDIO: reg rate, S1/2 heard without m/g/r LUNGS: CTA bilaterally, no crackles, rales or wheezes, good diaphragmatic excursion ABD: soft, diffuse mild tenderness without guarding, non-distended, +BS, +CVA tenderness on left side EXTREMITY: no LE swelling or edema, extremities are warm and well-perfused NEURO: CN 2-12 intact, sensation intact throughout, no gross focal deficits MUSC: 5/5 strength throughout, no focal deficits, moves around bed easily SKIN: warm and dry Hospital Course 21 yoF with acute pyelonephritis on the left side and superimposed gastroenteritis 1. 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 Improved clinically from this standpoint, afebrile. Pyridium started 10/25 for dysuria. UCx is negative. 2. Diarrhea likely 2/2 AGE as above-2-3 more episodes again today, pain on exam , cdiff and stool culture negative. Ordered more stool additional studies including norovirus, rotavirus, H pylori, Giardia. Imodium ordered PRN. Cont supportive care. Morphine for pain. CXR/AXR ordered-Revealing no active disease in the chest and a non-obstructed abdominal bowel gas pattern. There was also a punctuate calcification projecting over the mid left ureter, which may represent a tiny ureteral calculus. An additional punctate nonobstructing calculus was also seen in the left kidney. 3. Chest pain-began 10/25. Likely MSK with multiple recent episodes of dry heaving and possibly slept on it wrong per her reports. No increased work of breathing. Very TTP in several spots in anterior right chest wall and over into traps and neck muscles, also. NSAIDs and heating pad to help with pain for now but not successful. Morphine now, CXR. Discussed pros/cons of D-dimer or CT chest and patient declined at this time. This is very low risk. 4. Anxiety-cont Celexa and Buspar 5. Leukopenia 2/2 infection-resolved. 6. Hypokalemia-replacing 3.4 this am. 7. Nephrolithiasis-started Flomax for ureteral stone seen above as inpatient with instructions to cont as outpatient until pain in flank completely resolved , which occurred prior to her departure from the hospital. On day of discharge, she was tolerating a regular diet, denying nausea, vomiting or diarrhea, ambulating at baseline and was without any further pain. She had some residual soreness in her abdomen from the diarrhea and dry heaving in previous days but this was greatly improved, and she had no CVA tenderness on exam or chest pain. She was discharged to home in good condition with close follow-up. Of note, stool studies were still pending when she left. They returned positive for norovirus. The patient was notified of the results by telephone. Total time spent on discharge = This includes examination of the patient, discharge planning, medication reconciliation, and communication with other providers. Discharge Instructions Discharge Instructions Admission Reason for Admission: Pyelonephritis Discharge Discharge Diagnosis / Problem: acute pyelonephritis Discharge Goals Goal(s): Prevent Disease Progression Activity Recommendations Activity Limitations: resume your previous activity . Instructions / Follow-Up Instructions / Follow-Up Please take all medications as instructed. Please finish entire antibiotic course as prescribed. You had some low potassium during this hospitalization. I would like you to obtain some labwork prior to seeing Dr. Tatum next week so the results can be sent to her. This lab will be non-fasting. Please take Tamsulosin daily until flank pain has completely resolved. This in conjunction with drinking more water daily should help you pass your kidney stone. You have a follow-up appointment with your PCP, Dr. Tatum, for , 11/01 @ 10:50am. Please bring all paperwork from this hospitalization and arrive 15 minutes early. It was a pleasure taking care of you! Call if you have any questions or problems. You can reach a [facility] hospitalist on duty at [facility] 24 hours a day by calling [phone]. Take care of yourself. Pamela Portillo DO [facility] Hospitalist Additional Copies To Megan Tatum D.O.
--- NOTE | 2016-11-06 10:32 | Progress Note ---
Progress Note Attempted to contact patient by phone, however, no answer and voicemail was not set up. Reviewed EPIC and saw that she was a no-show to her follow-up appointment with Dr. Tatum and same issue occurred with office staff trying to reach the patient. Placed a call to her mother who is listed as "person to notify" to please have the patient call my cell and I left the number. Will also send a staff message to Dr. Tatum regarding results so she can continue to attempt to notify patient. No further treatment recommended and patient did not return to work until 48 hours after symptoms resolved--she was discharged prior to a weekend and declined a work excuse because her work wouldn't begin until Sunday. Pamela Portillo, DO
--- NOTE | 2016-11-06 11:18 | Progress Note ---
Progress Note Received a call from the lab that patient's norovirus came back positive. Notified Dr. Tatum's office and requested lab fax over a hard copy.
[2017-03-19] MEDS ORDERED: IBUP-1050 PO (08:35)
== END 2016-10-27 14:37 | disposition home or self-care (01) | DRG 690 ==
LOC: ENRESERVDT → ENRESERVTM → C.EDB 04:21 → UNDOADMOB 08:58 → C.MS4W 08:58 → OBSVTOIN 10-26 16:16
PROVIDERS: ADMIT Hospitalist; ATTEND Hospitalist
DX: N10 Acute pyelonephritis (principal); F41.9 Anxiety disorder, unspecified; E87.6 Hypokalemia; N20.0 Calculus of kidney; D72.829 Elevated white blood cell count, unspecified; R07.9 Chest pain, unspecified; D72.819 Decreased white blood cell count, unspecified; N83.209 Unspecified ovarian cyst, unspecified side; K52.9 Noninfective gastroenteritis and colitis, unspecified; Z79.899 Other long term (current) drug therapy; Z79.3 Long term (current) use of hormonal contraceptives

== ENCOUNTER 2016-12-29 09:07 | Emergency (ER) | payer BC ==
[~2016-12-29] VITALS: Ht 160 cm; Wt 71.8 kg
[~2016-12-29 09:07] MED LIST changes: -BCPILLS PO; +BUSP5TAB59 PO; +CIPR-255 PO; +CITA40TA12 PO; -ESCI1TAB10 PO; +FLM4 PO
[2016-12-29 09:24] VITALS: TEMP 37.1; Ht 160 cm; Wt 71.8 kg
[2016-12-29] MEDS ORDERED: ONDANSETRON INJ 2 MG/ML 2 ML VIAL IV STA (09:54)
[2016-12-29] MEDS ORDERED: KETOROLAC TROMETHAMINE 30 MG/ML VIAL IV STA (09:54)
[2016-12-29 10:12] LABS: BASO % 0.2 %; BASO ABS # 0.01 K/uL (0-0.2); COMPLETE YES; EOS % 0.3 %; HEMATOCRIT 43.2 % (37-47); IG% 0.2 %; LYMPH % 28.9 %; LYMPH ABS # 1.88 K/uL (1.2-3.4); MEAN CELL VOLUME 85.5 fL (80-100); MEAN CORPUSCULAR HEMOGLOBIN 29.7 pg (25-34); MEAN CORPUSCULAR HGB CONC 34.7 g/dl (32-36); MEAN PLATELET VOLUME 10.3 fL (7.4-10.4); MONO % 11.7 %; NEUT % 58.7 %; PLATELET COUNT 227 K/uL (130-400); RED BLOOD COUNT 5.05 M/uL (4.2-5.4)
--- NOTE | 2016-12-29 10:18 | EMERGENCY ROOM VISIT NOTE ---
History Report prepared by Sofia: Rox Stewart Under the Supervision of: Dr. Ana Laura Sinclair D.O. First contact with patient: 09:41 Chief Complaint: ABDOMINAL PAIN Stated Complaint: LEFT KIDNEY PAIN AND ABDOMINAL PAIN,VOMITING History of Present Illness The patient is a 21 year old female who presents to the Emergency Room with complaints of severe and intermittent suprapubic abdominal pain starting 3 days ago. She also complains of left flank pain starting today. She also started vomiting this morning. The patient has a history of recurrent kidney stones and pyelonephritis. The patient was discharged from [facility] on October 27. At the time, she had low potassium and was supposed to have follow up blood work. She was placed on an antibiotic and Flomax. She was supposed to follow up with her PCP afterwards but did not do so. Her last normal menstrual period was about 4 weeks ago. She reports there may be a chance of . She is not on control medications but uses condoms. The patient denies fevers, chills, chest pain, shortness of breath, or any other complaints. Source of History: patient Onset: 3 days ago Position: abdomen (suprapubic) Symptom Intensity: severe Timing: intermittent Associated Symptoms: + vomiting, No SOB, No chest pain, No chills, No fevers Review of Systems See HPI for pertinent positives & negatives. A total of 10 systems reviewed and were otherwise negative. Past Medical & Surgical Medical Problems: (1) Depression (2) Hyperthyroidism (3) Ovarian cyst (4) Pyelonephritis (5) Vitamin D deficiency Family History Cancer Diabetes mellitus FH: seizures Hypertension Kidney stone Social History Smoking Status: Never Smoker Alcohol Use: occasionally Drug Use: none Marital Status: in relationship Housing Status: lives with family Occupation Status: employed Current/Historical Medications Scheduled Citalopram Hydrobromide (Celexa), 40 MG PO DAILY Allergies Coded Allergies: No Known Allergies (Unverified , 10/24/16) Physical Exam Vital Signs Date Time Temp Pulse Resp B/P Pulse Ox O2 Delivery O2 Flow Rate FiO2 12/29/16 13:04 70 18 114/66 98 Room Air 12/29/16 11:18 71 12/29/16 10:43 67 18 116/69 98 Room Air 12/29/16 09:24 37.1 84 20 113/84 97 Room Air Physical Exam HEENT: Head - normocephalic and atraumatic Pupils are equal, round, and reactive to light. Extraocular eye muscles are intact, and sclera are anicteric. Nose - moist nasal mucosa without discharge. Mouth - moist buccal mucosa. Oropharynx is nonerythematous and there is no tonsillar exudate or edema noted. Neck: Supple; no JVD, nuchal rigidity, cervical lymphadenopathy. Heart: Regular rate and rhythm. There is a normal S1 and S2 with no murmurs, clicks, or gallops appreciated. Lungs: Clear to auscultation bilaterally with no wheezes, rales, or rhonchi. Abdomen: Soft, mild suprapubic tenderness on palpation, nondistended, with good bowel sounds. There are no palpable pulsatile masses or hepatosplenomegaly. There is no guarding, rigidity, or rebound noted. Back: Left CVA tenderness. Extremities: No evidence of cyanosis, clubbing, or edema. There are easily palpable peripheral pulses. Skin: warm and dry with good turgor and no rashes. Medical Decision & Procedures ER Provider Diagnostic Interpretation: X-ray results as stated below per interpretation by me and the radiologist: PA CHEST RADIOGRAPH AND UPRIGHT AND SUPINE AP RADIOGRAPHS OF THE ABDOMEN CLINICAL HISTORY: Left sided flank pain. History of ureteral stones. COMPARISON STUDY: Chest radiograph and abdominal series October 26, 2016. FINDINGS: Lung volumes are normal. Lungs are clear. There is no pneumothorax or pleural effusion. Pulmonary vascularity is normal. Cardiac size is normal. Mediastinal contours are normal. There is no free air. The bowel gas pattern is normal. Note is made of a 2 mm calculus within lower pole of the right kidney. No ureteral calculi are identified. There are possible punctate left renal calculi. IMPRESSION: 1. 2 mm right renal calculus. Possible punctate left renal calculi. No ureteral calculi identified. 2. No free air or evidence of bowel obstruction. 3. No acute cardiopulmonary findings. Electronically signed by: Nader Pérez M.D. 12/29/2016 10:43 AM Dictated Date/Time: 12/29/2016 10:39 AM US results as stated below per my review and the radiologist's interpretation: PELVIC ULTRASOUND CLINICAL HISTORY: Left-sided pelvic pain. COMPARISON STUDY: Pelvic ultrasound December 12, 2015. TECHNIQUE: Transabdominal and transvaginal sonography of the pelvis was performed. FINDINGS: The uterus measures 9.4 x 4.6 x 6.4 cm. The endometrium measures 1 cm in thickness. The right ovary measures 3.6 x 2.5 x 3.1 cm and the left measures 3.3 x 2.1 x 2.2 cm. Color flow is identified within each ovary. A small amount of fluid was noted within the pelvis. IMPRESSION: 1. Unremarkable sonographic appearance of the uterus and ovaries. 2. Small amount of fluid within the pelvis. Electronically signed by: Nader Pérez M.D. 12/29/2016 12:45 PM Dictated Date/Time: 12/29/2016 12:37 PM Laboratory Results 12/29/16 09:30 Red Blood Count 5.05, Mean Corpuscular Volume 85.5, Mean Corpuscular Hemoglobin 29.7, Mean Corpuscular Hemoglobin Concent 34.7, Mean Platelet Volume 10.3, Neutrophils (%) (Auto) 58.7, Lymphocytes (%) (Auto) 28.9, Monocytes (%) (Auto) 11.7, Eosinophils (%) (Auto) 0.3, Basophils (%) (Auto) 0.2, Neutrophils # (Auto ) 3.82, Lymphocytes # (Auto) 1.88, Monocytes # (Auto) 0.76, Eosinophils # (Auto ) 0.02, Basophils # (Auto) 0.01 12/29/16 09:30 Test 12/29/16 09:28 12/29/16 09:30 Urine Color DK YELLOW Urine Appearance CLEAR (CLEAR) Urine pH 6.0 (4.5-7.5) Urine Specific Granite 1.026 (1.000-1.030) Urine Protein NEG (NEG) Urine Glucose (UA) NEG (NEG) Urine Ketones NEG (NEG) Urine Occult Blood NEG (NEG) Urine Nitrite NEG (NEG) Urine Bilirubin NEG (NEG) Urine Urobilinogen NEG (NEG) Urine Leukocyte Esterase NEG (NEG) Urine Test NEG (NEG) White Blood Count 6.50 K/uL (4.8-10.8) Red Blood Count 5.05 M/uL (4.2-5.4) Hemoglobin 15.0 g/dL (12.0-16.0) Hematocrit 43.2 % (37-47) Mean Corpuscular Volume 85.5 fL (80-100) Mean Corpuscular Hemoglobin 29.7 pg (25-34) Mean Corpuscular Hemoglobin Concent 34.7 g/dl (32-36) Platelet Count 227 K/uL (130-400) Mean Platelet Volume 10.3 fL (7.4-10.4) Neutrophils (%) (Auto) 58.7 % Lymphocytes (%) (Auto) 28.9 % Monocytes (%) (Auto) 11.7 % Eosinophils (%) (Auto) 0.3 % Basophils (%) (Auto) 0.2 % Neutrophils # (Auto) 3.82 K/uL (1.4-6.5) Lymphocytes # (Auto) 1.88 K/uL (1.2-3.4) Monocytes # (Auto) 0.76 K/uL (0.11-0.59) Eosinophils # (Auto) 0.02 K/uL (0-0.5) Basophils # (Auto) 0.01 K/uL (0-0.2) RDW Standard Deviation 39.0 fL (36.4-46.3) RDW Coefficient of Variation 12.5 % (11.5-14.5) Immature Granulocyte % (Auto) 0.2 % Immature Granulocyte # (Auto) 0.01 K/uL (0.00-0.02) Anion Gap 6.0 mmol/L (3-11) Est Creatinine Clear Calc Drug Dose 107.4 ml/min Estimated GFR () 125.1 Estimated GFR (Non- 107.9 BUN/Creatinine Ratio 15.4 (10-20) Calcium Level 9.3 mg/dl (8.5-10.1) Total Bilirubin 0.4 mg/dl (0.2-1) Direct Bilirubin < 0.1 mg/dl (0-0.2) Aspartate Amino Transf (AST/SGOT) 20 U/L (15-37) Alanine Aminotransferase (ALT/SGPT) 30 U/L (12-78) Alkaline Phosphatase 78 U/L (45-117) Total Protein 8.4 gm/dl (6.4-8.2) Albumin 4.3 gm/dl (3.4-5.0) Lipase 136 U/L (73-393) Laboratory results per my review. Medications Administered Medications (Trade) Dose Ordered Sig/Franklin Route Start Time Stop Time Status Last Admin Dose Admin Ketorolac Tromethamine (Toradol Inj) 30 mg NOW STAT IV 12/29/16 09:54 12/29/16 09:56 DC 12/29/16 10:07 30 MG Ondansetron HCl (Zofran Inj) 4 mg NOW STAT IV 12/29/16 09:54 12/29/16 09:56 DC 12/29/16 10:06 4 MG Procedure Zofran Inj 4 mg IV, Toradol Inj 30 mg IV ED Course 0941: Past medical records reviewed. The patient was evaluated in room B04B. A complete history and physical exam was performed. An IV lock was initiated and labs were drawn as above. 0954: Zofran Inj 4 mg IV, Toradol Inj 30 mg IV. She had an obstruction series as described above. 1143: I reevaluated the patient who had some improvement in her symptoms. The patient went for an ultrasound of the pelvis to rule out torsion or ovarian cyst 1309: Upon reevaluation, the patient is feeling better. I discussed findings and results with her. She verbalized agreement of the treatment plan. She was discharged home. Medical Decision This is a 21 year old female who presents to the Emergency Room with a chief complaint of suprapubic abdominal pain. Differential diagnosis includes but is not limited to pyelonephritis, ureteral colic, low back strain, gastroenteritis , ectopic . Her urine dip was negative for . Her labs showed normal urinalysis, normal lipase and LFTs, normal renal function, normal glucose, no leukocytosis, normal H&H. This is a 21-year-old female patient with a long history of presentations to the ER for abdominal pain. She has had multiple episodes of pyelonephritis in the past. She also describes episodes of kidney stones. The patient has a normal urinalysis today with an unremarkable obstruction series. The patient will be discharged home at this time. She was told to return to the emergency department if she had worsening symptoms. At that time, she will have a CT scan of the abdomen/pelvis. The patient has had multiple previous CT scans and therefore was not interested in obtaining a CT scan because of her previous radiation exposure. However if symptoms worsen, she may need to undergo that study. Impression Primary Impression: Left flank pain Scribe Attestation The scribe's documentation has been prepared under my direction and personally reviewed by me in its entirety. I confirm that the note above accurately reflects all work, treatment, procedures, and medical decision making performed by me. Departure Information Dispostion Home / Self-Care Referrals No Doctor, Assigned (PCP) Megan Tatum D.O. Forms HOME CARE DOCUMENTATION FORM, IMPORTANT VISIT INFORMATION Patient Instructions My [facility] Additional Instructions Rest. Return to the ER if you have worsening symptoms like fever, vomiting or increased pain Follow up with PCP if pain persists
[2016-12-29 10:19] LABS: BLOOD UREA NITROGEN 12 mg/dl (7-18); BUN/CREATININE RATIO 15.4 (10-20); CALCIUM 9.3 mg/dl (8.5-10.1); CARBON DIOXIDE 28 mmol/L (21-32); CHLORIDE 105 mmol/L (98-107); CREATININE 0.78 mg/dl (0.60-1.20); GLUCOSE 83 mg/dl (70-99); POTASSIUM 3.7 mmol/L (3.5-5.1); SODIUM 139 mmol/L (136-145)
[2016-12-29 10:23] LABS: ALKALINE PHOSPHATASE 78 U/L (45-117); ALT/SGPT 30 U/L (12-78); AST/SGOT 20 U/L (15-37)
[2016-12-29 10:27] LABS: URINE APPEARANCE CLEAR (CLEAR); URINE BILIRUBIN NEG (NEG); URINE COLOR DK YELLOW; URINE NITRITE NEG (NEG); URINE SPECIFIC GRAVITY 1.026 (1.000-1.030); UROBILINOGEN NEG (NEG)
[2016-12-29 10:29] LABS: MANUAL MICROSCOPIC REQUIRED? NO; REVIEW REQ? NO
--- NOTE | 2016-12-29 10:44 | DIAGNOSTIC IMAGING REPORT ---
PA CHEST RADIOGRAPH AND UPRIGHT AND SUPINE AP RADIOGRAPHS OF THE ABDOMEN CLINICAL HISTORY: Left sided flank pain. History of ureteral stones. COMPARISON STUDY: Chest radiograph and abdominal series October 26, 2016. FINDINGS: Lung volumes are normal. Lungs are clear. There is no pneumothorax or pleural effusion. Pulmonary vascularity is normal. Cardiac size is normal. Mediastinal contours are normal. There is no free air. The bowel gas pattern is normal. Note is made of a 2 mm calculus within lower pole of the right kidney. No ureteral calculi are identified. There are possible punctate left renal calculi. IMPRESSION: 1. 2 mm right renal calculus. Possible punctate left renal calculi. No ureteral calculi identified. 2. No free air or evidence of bowel obstruction. 3. No acute cardiopulmonary findings. Electronically signed by: Nader Pérez M.D. 12/29/2016 10:43 AM Dictated Date/Time: 12/29/2016 10:39 AM
--- NOTE | 2016-12-29 12:47 | DIAGNOSTIC IMAGING REPORT ---
PELVIC ULTRASOUND CLINICAL HISTORY: Left-sided pelvic pain. COMPARISON STUDY: Pelvic ultrasound December 12, 2015. TECHNIQUE: Transabdominal and transvaginal sonography of the pelvis was performed. FINDINGS: The uterus measures 9.4 x 4.6 x 6.4 cm. The endometrium measures 1 cm in thickness. The right ovary measures 3.6 x 2.5 x 3.1 cm and the left measures 3.3 x 2.1 x 2.2 cm. Color flow is identified within each ovary. A small amount of fluid was noted within the pelvis. IMPRESSION: 1. Unremarkable sonographic appearance of the uterus and ovaries. 2. Small amount of fluid within the pelvis. Electronically signed by: Nader Pérez M.D. 12/29/2016 12:45 PM Dictated Date/Time: 12/29/2016 12:37 PM
[2016-12-29 13:04] VITALS: BP 114/66; PULSE 70; O2SAT 98
[2017-03-19] MEDS ORDERED: IBUP-1050 PO (08:35)
== END 2016-12-29 13:21 | disposition home or self-care (01) ==
LOC: C.EDB 09:08
DX: N20.0 Calculus of kidney (principal); R10.30 Lower abdominal pain, unspecified; E05.90 Thyrotoxicosis, unspecified without thyrotoxic crisis or storm; N83.209 Unspecified ovarian cyst, unspecified side; F32.9 Major depressive disorder, single episode, unspecified; E55.9 Vitamin D deficiency, unspecified; Z87.440 Personal history of urinary (tract) infections; Z87.442 Personal history of urinary calculi; Z79.899 Other long term (current) drug therapy; Z80.9 Family history of malignant neoplasm, unspecified; Z83.3 Family history of diabetes mellitus; Z82.0 Family history of epilepsy and other diseases of the nervous system; Z82.49 Family history of ischemic heart disease and other diseases of the circulatory system; Z84.1 Family history of disorders of kidney and ureter

== ENCOUNTER 2017-03-19 07:22 | Emergency (ER) | payer BC ==
[~2017-03-19] VITALS: Ht 160 cm; Wt 71.8 kg
[~2017-03-19 07:22] MED LIST changes: -BUSP5TAB59 PO; -CIPR-255 PO; -FLM4 PO
[2017-03-19 07:33] VITALS: TEMP 37; Ht 160 cm; Wt 71.8 kg
[2017-03-19] MEDS ORDERED: SODIUM CHLORIDE 0.9% 1000ML 1,000 ML IV STA ×2 (08:29→10:19)
[2017-03-19] MEDS ORDERED: ASPI-390 PO (08:36)
[2017-03-19 08:46] LABS: BASO % 0.3 %; BASO ABS # 0.02 K/uL (0-0.2); COMPLETE YES; EOS % 0.7 %; HEMATOCRIT 41.2 % (37-47); IG% 0.1 %; LYMPH % 36.5 %; MEAN CELL VOLUME 89.2 fL (80-100); MEAN CORPUSCULAR HEMOGLOBIN 29.7 pg (25-34); MEAN CORPUSCULAR HGB CONC 33.3 g/dl (32-36); MEAN PLATELET VOLUME 10.7 fL (7.4-10.4); MONO % 13.4 %; PLATELET COUNT 216 K/uL (130-400); RED BLOOD COUNT 4.62 M/uL (4.2-5.4); WHITE BLOOD COUNT 6.85 K/uL (4.8-10.8)
[2017-03-19] MEDS ORDERED: SODIUM CHLORIDE 0.45% 1000ML 1,000 ML IV STA (08:51)
[2017-03-19 08:53] LABS: URINE APPEARANCE CLEAR (CLEAR); URINE BILIRUBIN NEG (NEG); URINE COLOR YELLOW; URINE EPITHELIAL CELL AUTO >30 /lpf (0-5); URINE NITRITE NEG (NEG); URINE SPECIFIC GRAVITY 1.018 (1.000-1.030); UROBILINOGEN NEG (NEG); ZZUR CULT IF INDIC CLEAN CATCH NO
[2017-03-19] MEDS ORDERED: ACETAMINOPHEN 500 MG TAB PO STA (08:53)
[2017-03-19 08:54] LABS: BUN/CREATININE RATIO 18.3 (10-20); CREATININE 0.8 mg/dl (0.60-1.20); MANUAL MICROSCOPIC REQUIRED? NO; POTASSIUM 3.8 mmol/L (3.5-5.1); REVIEW REQ? NO
[2017-03-19] MEDS ORDERED: MECLIZINE HCL 25 MG TAB PO STA (09:02)
[2017-03-19 09:04] LABS: THYROID STIMULATING HORMONE 0.127 uIu/ml (0.300-4.500)
[2017-03-19] MEDS ORDERED: OXYCODONE HCL IR 5 MG TAB (IMMEDIATE RELEASE) PO STA (09:57)
[2017-03-19] MEDS ORDERED: ONDANSETRON 4MG OD TAB PO STA (10:53)
[2017-03-19] MEDS ORDERED: LORAZEPAM 0.5 MG TAB PO STA (10:54)
[2017-03-19] MEDS ORDERED: KETOROLAC TROMETHAMINE 30 MG/ML VIAL IV STA (11:21)
[2017-03-19] MEDS ORDERED: PROMETHAZINE HCL INJ 12.5 MG in SODIUM CHLORIDE 0.9% 50ML 50 ML IV STA (11:21)
[2017-03-19] MEDS ORDERED: PROMETHAZINE HCL INJ 25 MG/ML 1 ML VIAL ONE (11:36)
--- NOTE | 2017-03-19 11:47 | EMERGENCY ROOM VISIT NOTE ---
History First contact with patient: 07:50 Chief Complaint: NEURO SYMPTOMS Stated Complaint: HEADACHE,NUMBNESS OF FACE,BLURRY VISION,DIZZY Nursing Triage Summary: Pt presents with c/o h/a for the past week. "I had one migraine awhile ago. On the right side of my head I get sharp stabbing pain. I get numbness in face, yesterday it was in my left arm a little bit. I keep losing my vision and it gets blurry. The inside of my head feels like it's on fire. I get the spins really bad. Two days ago I woke up gasping for air. I take ibuprofen, excedrin and ice and it's just getting worse. It's just a really weird feeling. I had a bacterial vaginal infection for a month and have been on two abx. All I want to do is sleep, I have no energy." History of Present Illness The patient is a 21 year old female who presents to the Emergency Room with complaints of headache vertigo, tingling and numbness around her mouth, dysuria and episode of gasping for breath and one episode of fever 100.1. Her headache started 1 week ago and as slowly progressively got worse since then. She has been taking ibuprofen and Excedrin with only taking the edge off. The headache is all over her head aching all the time with intermittent sharp pains. Severity 8/10 currently the worse is has been, feels like a large pressure in her head like it is on fire. After the headache occurs she has perioral numbness which sometimes spreads to the rest of her face but is bilateral. Associated light sensitivity. She has associated vertigo along with this sensation. She denies tinnitus or hearing changes. 2 days ago she the headache was getting worse after coming back from work and she took her temperature which was 100.1. That night she woke up in the middle of the night gasping for air, no other shortness of breath since then. She does not have chronic headaches or migraines but has previously been seen in the ER in 2015 for migraine like headaches. CT head and lumbar puncture at that time were normal. Review of Systems Dysuria and increased urinary frequency See HPI for pertinent positives & negatives. A total of 10 systems reviewed and were otherwise negative. 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) Current/Historical Medications Scheduled Grgcxij-Dtsoirxfjbunl-Gncaimyz (Excedrin Migraine), 2 TAB PO DAILY Ibuprofen (Advil), 600 MG PO DAILY Allergies Coded Allergies: No Known Allergies (Unverified , 03/19/17) Physical Exam Vital Signs Date Time Temp Pulse Resp B/P (MAP) Pulse Ox O2 Delivery O2 Flow Rate FiO2 03/19/17 13:43 76 17 94/45 98 03/19/17 11:46 57 18 108/85 99 Room Air 03/19/17 10:40 66 18 116/68 95 Room Air 03/19/17 09:09 75 18 104/50 98 Room Air 03/19/17 07:33 37.0 57 18 123/77 98 Room Air Physical Exam VITAL SIGNS: were reviewed as above GENERAL: no acute distress, she does not appear overtly anxious SKIN: Warm dry and pink, no rashes HEAD: Normocephalic and atraumatic EYES: extraocular muscles intact, pupils equal and reactive to light, no papilledema OROPHARYNX: non erythematous, clear and moist NECK: Supple, no adenopathy, thyromegaly or meningismus LUNGS: clear to auscultation, no accessory muscle use HEART: Regular rate and rhythm, heart sounds 1+2, no murmurs ABDOMEN: Soft and nontender, bowel sounds normal BACK: no CVA tenderness, no central spine tenderness, no neck muscle spasm EXTREMITIES: Warm and well perfused, no calf tenderness/swelling, no pedal edema. NEUROLOGICALLY: Awake alert and oriented without focal deficit. Upper and lower motor and sensory examination is normal. Cranial nerves 2-12 intact. Cerebellar testing is within normal limits. There is no nystagmus. There is no facial droop. Speech is clear. Visual acuity grossly normal. MUSCULOSKELETAL: Good muscle tone. No evidence of trauma Medical Decision & Procedures Laboratory Results 03/19/17 08:00 Red Blood Count 4.62, Mean Corpuscular Volume 89.2, Mean Corpuscular Hemoglobin 29.7, Mean Corpuscular Hemoglobin Concent 33.3, Mean Platelet Volume 10.7, Neutrophils (%) (Auto) 49.0, Lymphocytes (%) (Auto) 36.5, Monocytes (%) (Auto) 13.4, Eosinophils (%) (Auto) 0.7, Basophils (%) (Auto) 0.3, Neutrophils # (Auto ) 3.35, Lymphocytes # (Auto) 2.50, Monocytes # (Auto) 0.92, Eosinophils # (Auto ) 0.05, Basophils # (Auto) 0.02 03/19/17 08:00 Test 03/19/17 08:00 White Blood Count 6.85 K/uL (4.8-10.8) Red Blood Count 4.62 M/uL (4.2-5.4) Hemoglobin 13.7 g/dL (12.0-16.0) Hematocrit 41.2 % (37-47) Mean Corpuscular Volume 89.2 fL (80-100) Mean Corpuscular Hemoglobin 29.7 pg (25-34) Mean Corpuscular Hemoglobin Concent 33.3 g/dl (32-36) Platelet Count 216 K/uL (130-400) Mean Platelet Volume 10.7 fL (7.4-10.4) Neutrophils (%) (Auto) 49.0 % Lymphocytes (%) (Auto) 36.5 % Monocytes (%) (Auto) 13.4 % Eosinophils (%) (Auto) 0.7 % Basophils (%) (Auto) 0.3 % Neutrophils # (Auto) 3.35 K/uL (1.4-6.5) Lymphocytes # (Auto) 2.50 K/uL (1.2-3.4) Monocytes # (Auto) 0.92 K/uL (0.11-0.59) Eosinophils # (Auto) 0.05 K/uL (0-0.5) Basophils # (Auto) 0.02 K/uL (0-0.2) RDW Standard Deviation 40.9 fL (36.4-46.3) RDW Coefficient of Variation 12.7 % (11.5-14.5) Immature Granulocyte % (Auto) 0.1 % Immature Granulocyte # (Auto) 0.01 K/uL (0.00-0.02) Urine Color YELLOW Urine Appearance CLEAR (CLEAR) Urine pH 6.0 (4.5-7.5) Urine Specific [place]rill 1.018 (1.000-1.030) Urine Protein NEG (NEG) Urine Glucose (UA) NEG (NEG) Urine Ketones NEG (NEG) Urine Occult Blood NEG (NEG) Urine Nitrite NEG (NEG) Urine Bilirubin NEG (NEG) Urine Urobilinogen NEG (NEG) Urine Leukocyte Esterase SMALL (NEG) Urine WBC (Auto) 1-5 /hpf (0-5) Urine RBC (Auto) 0-4 /hpf (0-4) Urine Hyaline Casts (Auto) 1-5 /lpf (0-5) Urine Epithelial Cells (Auto) >30 /lpf (0-5) Urine Bacteria (Auto) NEG (NEG) Anion Gap 8.0 mmol/L (3-11) Est Creatinine Clear Calc Drug Dose 104.7 ml/min Estimated GFR () 121.3 Estimated GFR (Non- 104.7 BUN/Creatinine Ratio 18.3 (10-20) Calcium Level 9.0 mg/dl (8.5-10.1) Total Bilirubin 0.3 mg/dl (0.2-1) Aspartate Amino Transf (AST/SGOT) 15 U/L (15-37) Alanine Aminotransferase (ALT/SGPT) 21 U/L (12-78) Alkaline Phosphatase 78 U/L (45-117) Total Protein 7.8 gm/dl (6.4-8.2) Albumin 3.8 gm/dl (3.4-5.0) Globulin 4.0 gm/dl (2.5-4.0) Albumin/Globulin Ratio 1.0 (0.9-2) Thyroid Stimulating Hormone (TSH) 0.127 uIu/ml (0.300-4.500) Free Thyroxine 1.25 ng/dl (0.80-1.60) Medications Administered Medications (Trade) Dose Ordered Sig/Franklin Route Start Time Stop Time Status Last Admin Dose Admin Sodium Chloride 1,000 ml @ 999 mls/hr Q1H1M STAT IV 03/19/17 08:29 03/19/17 09:29 DC 03/19/17 09:08 999 MLS/HR Acetaminophen (Tylenol Tab) 1,000 mg NOW STAT PO 03/19/17 08:53 03/19/17 08:54 DC 03/19/17 09:08 1,000 MG Meclizine HCl (Antivert Tab) 25 mg NOW STAT PO 03/19/17 09:02 03/19/17 09:03 DC 03/19/17 09:08 25 MG Oxycodone HCl (Roxicodone Immediate Rel Tab) 5 mg NOW STAT PO 03/19/17 09:57 03/19/17 10:02 DC 03/19/17 10:05 5 MG Sodium Chloride 1,000 ml @ 999 mls/hr Q1H1M STAT IV 03/19/17 10:19 03/19/17 11:19 DC 03/19/17 10:40 999 MLS/HR Ondansetron HCl (Zofran Odt) 4 mg NOW STAT PO 03/19/17 10:53 03/19/17 10:54 DC 03/19/17 11:01 4 MG Lorazepam (Ativan Tab) 0.5 mg NOW STAT PO 03/19/17 10:54 03/19/17 10:55 DC 03/19/17 11:01 0.5 MG Ketorolac Tromethamine (Toradol Inj) 30 mg NOW STAT IV 03/19/17 11:21 03/19/17 11:27 DC 03/19/17 11:38 30 MG Promethazine HCl 12.5 mg/Sodium Chloride 50.5 ml @ 204 mls/hr NOW STAT IV 03/19/17 11:21 03/19/17 11:35 DC 03/19/17 11:39 204 MLS/HR ED Course 7:55am Complete history and physical done, basic labs ordered and discussed patient with Dr Haney 9:00am re-examined and no change in symptoms, meclizine and oxycodone ordered 10:40am re-examined and feeling nauseous from oxycodone therefore ondansetron ordered, Ativan ordered for muscle spasm/vertigo/anxiety 11:20am re-examined and nausea gone but otherwise not change in headache, appeared much more pulsating therefore most likely migraine, discussed with Dr Haney and prescribed Toradol and Phenergan 13:30 patient re-examined, pain now at 3/10. Discussed diagnosis and management with the patient. Medical Decision Prior records/ancillary studies reviewed. Additional history obtained from patient. Triage Nursing notes reviewed. The patient's history was concerning for headache and vertigo. Differential diagnosis: Etiologies such as migraine headache, meningitis, sinusitis, CO exposure, ICH, SAH, infection, tumor, headache, sinus thrombosis, arterial dissection, as well as others were entertained. Physical examination findings: As above. Non-focal. ER treatment provided: Acetaminophen, IV fluids, Meclizine, Ondansetron, Toradol and Phenergan On reassessment the patient felt better and her pain decreased to 3/10 severity Diagnostics interpreted by me: The labs revealed low TSH with normal T4 but otherwise unremarkable Imaging studies: not performed given no focal neurology and previous normal imaging in 2015 with similar symptoms This appears to be consistent with migraine. By the evaluation outlined above emergent etiologies such as meningitis, sinusitis, CO exposure, ICH, SAH, infection, temporal arteritis, tumor, sinus thrombosis, arterial dissection, as well as others were deemed relatively unlikely. The patient was informed about the findings as listed above. All questions were answered and she pleased with the treatment. Return instructions were outlined and the patient was discharged in stable condition. Impression Primary Impression: Migraine Additional Impression: Low TSH level Departure Information Dispostion Home / Self-Care Condition FAIR Referrals No Doctor, Assigned (PCP) Patient Instructions [facility] Resident Tracking Resident Involvement: Resident Care Provided Care Provided: Adult ED Problem Qualifiers Primary Impression: Migraine Migraine type: without aura Status migrainosus presence: with status migrainosus Intractability: intractable Qualified Codes: G43.011 - Migraine without aura, intractable, with status migrainosus
[2017-03-19 13:43] VITALS: BP 94/45; PULSE 76; O2SAT 98
--- NOTE | 2017-03-19 15:38 | EMERGENCY ROOM VISIT NOTE ---
ED Visit Note First contact with patient: 07:50 I have personally evaluated this patient examined her and reviewed the pertinent labs and data. I have discussed the case with the resident physician print shop assistant and agree with the plan. Please refer to the PA note This patient comes in with several different complaints. She has a headache. She have a history of migraines. She looks well on exam and has a normal neurologic exam. She is afebrile. She has nothing to suggest meningitis or encephalitis clinically. She has no acute electrolyte or metabolic abnormality. She was hydrated with IV normal saline. She was complaining of dizziness. She has nothing to suggest cardiac disease. She is given medications for the dizziness felt better and was given IV Toradol and IV Phenergan and was feeling better and sleeping. I reviewed her record she was seen here before for similar complaint had a negative CAT scan and LP. I do not think she needs these measures today but does need of close follow-up with her regular doctor return if: increasing pain, worsening of symptoms, numbnes for s weakness, any problems concerns. She is happy with plan and discharged to home.
[2017-03-20] MEDS ORDERED: PRED20TA PO (21:46)
[2017-07-31] MEDS ORDERED: IBUP-1050 PO (08:35)
== END 2017-03-19 13:53 | disposition home or self-care (01) ==
LOC: C.EDB 07:24 → C.EDA 13:53
DX: G43.011 Migraine without aura, intractable, with status migrainosus (principal); F32.9 Major depressive disorder, single episode, unspecified; E05.90 Thyrotoxicosis, unspecified without thyrotoxic crisis or storm; E55.9 Vitamin D deficiency, unspecified; Z80.9 Family history of malignant neoplasm, unspecified; Z83.3 Family history of diabetes mellitus; Z82.0 Family history of epilepsy and other diseases of the nervous system; Z82.49 Family history of ischemic heart disease and other diseases of the circulatory system; Z84.1 Family history of disorders of kidney and ureter; R94.6 Abnormal results of thyroid function studies

== ENCOUNTER 2017-03-20 18:01 | Emergency (ER) | payer BC ==
[~2017-03-20] VITALS: Ht 162.6 cm; Wt 71.6 kg
[~2017-03-20 18:01] MED LIST changes: +ASPI-390 PO; -CITA40TA12 PO
[2017-03-20 18:05] VITALS: Ht 162.6 cm; Wt 71.6 kg
[2017-03-20] MEDS ORDERED: DiphenhydrAMINE HCL 50 MG/ML VIAL IV STA (18:34)
[2017-03-20] MEDS ORDERED: DEXAMETHASONE SOD INJ 4 MG/ML VIAL IV STA (18:34)
[2017-03-20] MEDS ORDERED: KETOROLAC TROMETHAMINE 30 MG/ML VIAL IV STA (18:34)
[2017-03-20] MEDS ORDERED: PROCHLORPERAZINE 5 MG/ML 2 ML VIAL IV STA (18:34)
[2017-03-20] MEDS ORDERED: SODIUM CHLORIDE 0.9% 1000ML 1,000 ML IV STA (18:34)
[2017-03-20 19:29] LABS: HEMATOCRIT 34.9 % (37-47); MEAN CELL VOLUME 89.3 fL (80-100); MEAN CORPUSCULAR HEMOGLOBIN 30.2 pg (25-34); RED BLOOD COUNT 3.91 M/uL (4.2-5.4)
[2017-03-20 19:30] LABS: BASO % 0.2 %; BASO ABS # 0.01 K/uL (0-0.2); COMPLETE YES; EOS % 0.7 %; IG% 0.2 %; LYMPH % 28.2 %; LYMPH ABS # 1.55 K/uL (1.2-3.4); MEAN CORPUSCULAR HGB CONC 33.8 g/dl (32-36); MEAN PLATELET VOLUME 10.6 fL (7.4-10.4); MONO % 12.4 %; NEUT % 58.3 %; PLATELET COUNT 168 K/uL (130-400)
--- NOTE | 2017-03-20 19:34 | EMERGENCY ROOM VISIT NOTE ---
History Report prepared by Sofia: Jonna Kenney Under the Supervision of: Dr. Lawrence Farmer M.D. First contact with patient: 18:10 Chief Complaint: HEADACHE Stated Complaint: HEADACHE,BLURRY VISION History of Present Illness The patient is a 21 year old female who presents to the Emergency Room with complaints of worsening headache beginning one week prior to arrival. She rates her pain as 8/10 in severity. She describes the pain to be bilateral and around the front of her head down into her face. The patient states that she was seen in the ED yesterday for her symptoms. She has taken Ibuprofen, Excedrin and Hydrocodone with no relief of her pain. The patient was given Toradol in the ED and notes it "took the edge off". She notes that her symptoms include fatigue, light sensitivity, dizziness, nausea, and blurred vision. The patient notes numbness and tingling to her face that starts at her mouth and moves laterally. She also notes numbness to her left arm today. She notes her head has a burning sensation to it. The patient has been staying hydrated. The patient denies fevers, neck pain, back pain or recently starting new medication. She states that 2 years ago she had similar symptoms and an LP was done at that time. She was diagnosed with a migraine. The patient did talk to her PCP this afternoon before coming to the ED. Source of History: patient Onset: one week Position: other (global) Symptom Intensity: 8/10 Quality: other (headache) Timing: worsening Associated Symptoms: + nausea, + fatigue, + numbness, No fevers, No neck pain, No back pain Review of Systems See HPI for pertinent positives & negatives. A total of 10 systems reviewed and were otherwise negative. Past Medical & Surgical Medical Problems: (1) Depression (2) Hyperthyroidism (3) Ovarian cyst (4) Pyelonephritis (5) Vitamin D deficiency Family History Cancer Diabetes mellitus FH: seizures Hypertension Kidney stone Social History Smoking Status: Never Smoker Alcohol Use: occasionally Drug Use: none Marital Status: in relationship Housing Status: lives with family Occupation Status: employed Current/Historical Medications Scheduled Ibuprofen (Advil), 600 MG PO DAILY Prednisone (Prednisone), 2 TAB PO DAILY Allergies Coded Allergies: No Known Allergies (Unverified , 03/20/17) Physical Exam Vital Signs Date Time Temp Pulse Resp B/P (MAP) Pulse Ox O2 Delivery O2 Flow Rate FiO2 03/20/17 22:13 37.1 69 18 110/72 99 03/20/17 21:39 69 18 110/72 99 03/20/17 21:16 65 20 110/64 98 Room Air 03/20/17 19:49 82 03/20/17 19:40 92 18 117/92 98 03/20/17 18:05 37.1 106 17 129/82 99 Room Air Physical Exam GENERAL: Patient is in no acute distress. HEENT: No acute trauma, normocephalic atraumatic, mucous membranes moist, no nasal congestion, no scleral icterus. Pupils equal and reactive to light. NECK: No stridor, no adenopathy, no meningismus, trachea is midline. LUNGS: Clear to auscultation bilaterally, no wheeze, no rhonchi, breath sounds equal. HEART: Without murmurs gallops or rubs, regular rate and rhythm. ABDOMEN: Soft, nontender, bowel sounds positive, no hernias, no peritonitis. EXTREMITIES: No cyanosis or edema, full range of motion of all the joints without pain or difficulty, no signs for acute trauma. NEUROLOGIC: Oriented x 3, no acute motor or sensory deficits, no focal weakness. No cerebellar deficits. SKIN: No rash, no jaundice, no diaphoresis Medical Decision & Procedures ER Provider Diagnostic Interpretation: Radiology results as stated below per my review and radiologist interpretation: ADDENDUM ADDENDUM: Addendum is generated to correct the clinical history. The clinical history is headache. The findings of the report are unchanged. Electronically signed by: Lawrence Olivier M.D. 03/20/2017 9:15 PM Dictated Date/Time: 03/20/2017 9:15 PM ORIGINAL REPORT MR ANGIOGRAM OF THE BRAIN CLINICAL HISTORY: Change in mental status. COMPARISON STUDY: CT of the brain dated 05/24/2015. TECHNIQUE: 3-D [id number] MR angiography of the intracranial circulation is performed. 3-D tumble views are created and assessed. IV contrast was not administered for this examination. The examination is modestly degraded by motion artifact. FINDINGS: The [place] of [place] is developmentally complete. The internal carotid arteries are widely patent bilaterally, as are the anterior and middle cerebral arteries. The vertebrobasilar system and posterior cerebral arteries are widely patent. The vertebral arteries are codominant. There is no aneurysm, high-grade stenosis, or focal vessel cutoff seen throughout the intracranial circulation. The brain parenchyma is normal as visualized. IMPRESSION: Unremarkable MR angiogram of the brain. Electronically signed by: Lawrence Olivier M.D. 03/20/2017 9:10 PM Dictated Date/Time: 03/20/2017 9:08 PM MRI OF THE BRAIN COMBO CLINICAL HISTORY: Headache. COMPARISON STUDY: CT of the brain dated 05/24/2015. TECHNIQUE: MRI of the brain was performed utilizing various T1 and T2-weighted sequences in the axial, sagittal, and coronal planes. Contrast-enhanced sequences were acquired following the administration of 7 cc of Gadavist. FINDINGS: Brain parenchyma: The brain parenchyma is normal in appearance. There is no hemorrhage or mass effect. There is no restricted diffusion to suggest acute ischemia. No enhancing mass lesion is identified on the postcontrast images. Grissom-white matter differentiation is preserved. No extra-axial fluid collection is seen. The cerebellar tonsils are normal in configuration. Ventricles, sulci, and cisterns: Normal in configuration. Pituitary and sella: Unremarkable. Intracranial vasculature: Normal flow voids are maintained at the skull base. Orbits: The bony orbits are grossly intact. Orbital contents are normal in appearance. Sinuses and mastoids: Clear. Calvarium: Unremarkable. Cervical cord: Partially visualized cervical spinal cord is normal in morphology and signal intensity. IMPRESSION: No acute intracranial abnormality. Electronically signed by: Lawrence Olivier M.D. 03/20/2017 9:15 PM Dictated Date/Time: 03/20/2017 9:12 PM Laboratory Results 03/20/17 19:15 Red Blood Count 3.91, Mean Corpuscular Volume 89.3, Mean Corpuscular Hemoglobin 30.2, Mean Corpuscular Hemoglobin Concent 33.8, Mean Platelet Volume 10.6, Neutrophils (%) (Auto) 58.3, Lymphocytes (%) (Auto) 28.2, Monocytes (%) (Auto) 12.4, Eosinophils (%) (Auto) 0.7, Basophils (%) (Auto) 0.2, Neutrophils # (Auto ) 3.21, Lymphocytes # (Auto) 1.55, Monocytes # (Auto) 0.68, Eosinophils # (Auto ) 0.04, Basophils # (Auto) 0.01 03/20/17 19:15 Test 03/20/17 19:15 White Blood Count 5.50 K/uL (4.8-10.8) Red Blood Count 3.91 M/uL (4.2-5.4) Hemoglobin 11.8 g/dL (12.0-16.0) Hematocrit 34.9 % (37-47) Mean Corpuscular Volume 89.3 fL (80-100) Mean Corpuscular Hemoglobin 30.2 pg (25-34) Mean Corpuscular Hemoglobin Concent 33.8 g/dl (32-36) Platelet Count 168 K/uL (130-400) Mean Platelet Volume 10.6 fL (7.4-10.4) Neutrophils (%) (Auto) 58.3 % Lymphocytes (%) (Auto) 28.2 % Monocytes (%) (Auto) 12.4 % Eosinophils (%) (Auto) 0.7 % Basophils (%) (Auto) 0.2 % Neutrophils # (Auto) 3.21 K/uL (1.4-6.5) Lymphocytes # (Auto) 1.55 K/uL (1.2-3.4) Monocytes # (Auto) 0.68 K/uL (0.11-0.59) Eosinophils # (Auto) 0.04 K/uL (0-0.5) Basophils # (Auto) 0.01 K/uL (0-0.2) RDW Standard Deviation 41.3 fL (36.4-46.3) RDW Coefficient of Variation 12.8 % (11.5-14.5) Immature Granulocyte % (Auto) 0.2 % Immature Granulocyte # (Auto) 0.01 K/uL (0.00-0.02) Erythrocyte Sedimentation Rate 6 mm/hr (0-21) Anion Gap 7.0 mmol/L (3-11) Est Creatinine Clear Calc Drug Dose 145.2 ml/min Estimated GFR () > 150.0 Estimated GFR (Non- 130.1 BUN/Creatinine Ratio 13.5 (10-20) Calcium Level 8.0 mg/dl (8.5-10.1) Human Chorionic Gonadotropin, Qual NEG (NEG) Chemistry Specimen Hemolysis Lyme Disease IgG Antibody NEG (NEG) Lyme Disease IgM Antibody NEG (NEG) Laboratory results reviewed by me. Medications Administered Medications (Trade) Dose Ordered Sig/[place] Route Start Time Stop Time Status Last Admin Dose Admin Prochlorperazine Edisylate (Compazine Inj) 10 mg NOW STAT IV 03/20/17 18:34 03/20/17 18:39 DC 03/20/17 19:30 10 MG Sodium Chloride 1,000 ml @ 999 mls/hr Q1H1M STAT IV 03/20/17 18:34 03/20/17 19:34 DC 03/20/17 18:34 999 MLS/HR Ketorolac Tromethamine (Toradol Inj) 30 mg NOW STAT IV 03/20/17 18:34 03/20/17 18:39 DC 03/20/17 19:30 30 MG Diphenhydramine HCl (Benadryl Inj) 50 mg NOW STAT IV 03/20/17 18:34 03/20/17 18:39 DC 03/20/17 19:30 50 MG Dexamethasone Sodium Phosphate (Decadron Inj) 10 mg NOW STAT IV 03/20/17 18:34 03/20/17 18:39 DC 03/20/17 19:31 10 MG ED Course 1833: The patient was evaluated in room B5. A complete history and physical exam was performed. 1834: Decadron Inj 10 mg IV, Benadryl Inj 50 mg IV, Toradol Inj 30 mg IV, Sodium Chloride 1,000 ml @ 999 mls/hr IV, Compazine Inj 10 mg IV. 5: Gadavist 7 mmol IV. 7: I reevaluated the patient and she is feeling better. She no longer has a headache. 2143: Reevaluated the patient. Discussed results and discharge instructions: She verbalized understanding and agreement. The patient is ready for discharge. Medical Decision The patient is a 21 year old female who presents to the ED with complaints of headache. Differential diagnoses considered include migraine headache, complex migraine headache, intracranial bleeding, intracranial mass, dehydration, meningitis, encephalitis. There is no leukocytosis or concerning anemia. No significant electrolyte abnormality or kidney failure. Sedimentation rate is not elevated making ongoing infection/inflammation less likely. Lyme disease testing is negative. On exam, the patient does not have meningismus. She is not febrile or toxic. Her neurologic exam is nonfocal and normal. Brain MRI does not show MS, mass or bleeding. No evidence for stroke. Brain MRI does not show any aneurysm. She received IV Compazine, IV Benadryl, IV Toradol, IV saline and IV Decadron. She is now completely pain-free and asymptomatic. I talked to the patient about a lumbar puncture, as she is markedly improved with nonnarcotic medication, the decision was made not to pursue a lumbar puncture. I highly doubt meningitis as a cause for her presentation. She is being discharged on a burst of prednisone. She can return here for worsening symptoms. Her headache is likely migrainous. She has had a similar presentation a few years ago that was eventually diagnosed as a migraine, she had a negative lumbar puncture at that time. Medication Reconciliation: I attest that I have personally reviewed the patient' s current medication list. Blood Pressure Screening: Patient was found to have normal blood pressure on screening and does not require follow-up. Impression Primary Impression: Headache Scribe Attestation The scribe's documentation has been prepared under my direction and personally reviewed by me in its entirety. I confirm that the note above accurately reflects all work, treatment, procedures, and medical decision making performed by me. Departure Information Dispostion Home / Self-Care Prescriptions Prednisone (Prednisone) 20 Mg Tab 2 TAB PO DAILY for 5 Days, #10 TAB Prov: Lawrence Farmer M.D. 03/20/17 Referrals Megan Tatum D.O. (PCP) Forms HOME CARE DOCUMENTATION FORM, IMPORTANT VISIT INFORMATION Patient Instructions My [facility] Additional Instructions fluids rest prednisone as directed return for fever or worsening symptoms testing today was all ok
[2017-03-20 20:01] LABS: BLOOD UREA NITROGEN 8 mg/dl (7-18); BUN/CREATININE RATIO 13.5 (10-20); CARBON DIOXIDE 26 mmol/L (21-32); CHLORIDE 110 mmol/L (98-107); CREATININE 0.59 mg/dl (0.60-1.20); GLUCOSE 98 mg/dl (70-99); POTASSIUM 3.8 mmol/L (3.5-5.1); SODIUM 143 mmol/L (136-145)
[2017-03-20 20:15] LABS: PREG INTERNAL NEGATIVE QC NEG CLEAR BACKGROUND; PREG INTERNAL POSITIVE QC POS CONTROL LINE
[2017-03-20 20:48] LABS: LYME DISEASE AB IGG NEG (NEG); LYME DISEASE AB IGM NEG (NEG)
--- NOTE | 2017-03-20 21:11 | DIAGNOSTIC IMAGING REPORT ---
ADDENDUM ADDENDUM: Addendum is generated to correct the clinical history. The clinical history is headache. The findings of the report are unchanged. Electronically signed by: Lawrence Olivier M.D. 03/20/2017 9:15 PM Dictated Date/Time: 03/20/2017 9:15 PM ORIGINAL REPORT MR ANGIOGRAM OF THE BRAIN CLINICAL HISTORY: Change in mental status. COMPARISON STUDY: CT of the brain dated 05/24/2015. TECHNIQUE: 3-D [id number] MR angiography of the intracranial circulation is performed. 3-D tumble views are created and assessed. IV contrast was not administered for this examination. The examination is modestly degraded by motion artifact. FINDINGS: The [place] of [place] is developmentally complete. The internal carotid arteries are widely patent bilaterally, as are the anterior and middle cerebral arteries. The vertebrobasilar system and posterior cerebral arteries are widely patent. The vertebral arteries are codominant. There is no aneurysm, high-grade stenosis, or focal vessel cutoff seen throughout the intracranial circulation. The brain parenchyma is normal as visualized. IMPRESSION: Unremarkable MR angiogram of the brain. Electronically signed by: Lawrence Olivier M.D. 03/20/2017 9:10 PM Dictated Date/Time: 03/20/2017 9:08 PM
[2017-03-20] MEDS ORDERED: GADAVIST IV PRN (21:15)
--- NOTE | 2017-03-20 21:16 | DIAGNOSTIC IMAGING REPORT ---
MRI OF THE BRAIN COMBO CLINICAL HISTORY: Headache. COMPARISON STUDY: CT of the brain dated 05/24/2015. TECHNIQUE: MRI of the brain was performed utilizing various T1 and T2-weighted sequences in the axial, sagittal, and coronal planes. Contrast-enhanced sequences were acquired following the administration of 7 cc of Gadavist. FINDINGS: Brain parenchyma: The brain parenchyma is normal in appearance. There is no hemorrhage or mass effect. There is no restricted diffusion to suggest acute ischemia. No enhancing mass lesion is identified on the postcontrast images. Grissom-white matter differentiation is preserved. No extra-axial fluid collection is seen. The cerebellar tonsils are normal in configuration. Ventricles, sulci, and cisterns: Normal in configuration. Pituitary and sella: Unremarkable. Intracranial vasculature: Normal flow voids are maintained at the skull base. Orbits: The bony orbits are grossly intact. Orbital contents are normal in appearance. Sinuses and mastoids: Clear. Calvarium: Unremarkable. Cervical cord: Partially visualized cervical spinal cord is normal in morphology and signal intensity. IMPRESSION: No acute intracranial abnormality. Electronically signed by: Lawrence Olivier M.D. 03/20/2017 9:15 PM Dictated Date/Time: 03/20/2017 9:12 PM
[2017-03-20] MEDS ORDERED: PRED20TA PO (21:46)
[2017-03-20 22:13] VITALS: BP 110/72; PULSE 69; TEMP 37.1; O2SAT 99
[2017-07-31] MEDS ORDERED: IBUP-1050 PO (08:35)
== END 2017-03-20 22:05 | disposition home or self-care (01) ==
LOC: C.EDB 18:02
DX: R51 Headache (principal); F33.41 Major depressive disorder, recurrent, in partial remission; E03.9 Hypothyroidism, unspecified; E55.9 Vitamin D deficiency, unspecified; Z83.3 Family history of diabetes mellitus; Z82.49 Family history of ischemic heart disease and other diseases of the circulatory system; Z82.0 Family history of epilepsy and other diseases of the nervous system

== ENCOUNTER 2017-07-31 20:30 | Emergency (ER) | payer OTHER, BC ==
[~2017-07-31] VITALS: Ht 160 cm; Wt 72.5 kg
[~2017-07-31 20:30] MED LIST changes: -ASPI-390 PO; +IBUP-1050 PO
[2017-07-31 20:43] VITALS: TEMP 37; Ht 160 cm; Wt 72.5 kg
[2017-07-31] MEDS ORDERED: NORE1DIS7 TOP (21:18)
[2017-07-31] MEDS ORDERED: CYAN100020 PO (21:18)
[2017-07-31] MEDS ORDERED: CLX/20 PO (21:18)
[2017-07-31] MEDS ORDERED: CYCLOBENZAPRINE HCL 5 MG TAB PO STA (21:20)
[2017-07-31] MEDS ORDERED: OXYCODONE HCL IR 5 MG TAB (IMMEDIATE RELEASE) PO STA ×2 (21:20→22:16)
[2017-07-31 21:32] LABS: URINE APPEARANCE CLEAR (CLEAR); URINE BILIRUBIN NEG (NEG); URINE COLOR YELLOW; URINE NITRITE NEG (NEG); URINE SPECIFIC GRAVITY 1.022 (1.000-1.030); UROBILINOGEN NEG (NEG); ZZUR CULT IF INDIC CLEAN CATCH NO
[2017-07-31 21:44] LABS: MANUAL MICROSCOPIC REQUIRED? NO; REVIEW REQ? NO
--- NOTE | 2017-07-31 22:14 | DIAGNOSTIC IMAGING REPORT ---
KUB HISTORY: No bowel movement in 5 days. COMPARISON: Abdominal series 12/29/2016. FINDINGS: The bowel gas pattern is unremarkable. There are no dilated loops of small bowel to suggest an obstruction. There appears be a few punctate bilateral renal calculi. No ureteral calculi. Moderate to large amount well-formed stool seen throughout the colon. No pneumoperitoneum or pneumatosis. IMPRESSION: 1. Moderate to large amount of well-formed stool seen throughout the colon. 2. No evidence for bowel obstruction. 3. Bilateral nephrolithiasis. No ureteral calculi. Electronically signed by: Triston Castillo M.D. 07/31/2017 10:13 PM Dictated Date/Time: 07/31/2017 10:11 PM
[2017-07-31] MEDS ORDERED: CYCL5TAB PO (23:04)
[2017-07-31] MEDS ORDERED: OXYC1TAB3 PO (23:04)
[2017-07-31] MEDS ORDERED: FLEXERIL HOME PACK 10 MG VIAL PO STA (23:06)
[2017-07-31] MEDS ORDERED: OXYCODONE IR HOME PACK PO STA (23:06)
--- NOTE | 2017-07-31 23:06 | EMERGENCY ROOM VISIT NOTE ---
History First contact with patient: 21:11 Chief Complaint: SHOULDER PAIN Stated Complaint: LT SHOULDER PAIN, NUMB, STUCK-WC History of Present Illness The patient is a 22 year old female who presents to the Emergency Room via private vehicle with complaints of "left shoulder pain, numb". 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 She rates the pain as a 7/10. She also feels dizzy and nauseous. She has had no bowel movement in 5 days, normally notes that she has a bowel movement every day. Review of Systems A complete 6-point Review of Systems was discussed with the patient, with pertinent positives and negatives listed in the History of Present Illness. All remaining Review of Systems questions can be considered negative unless otherwise specified. Past Medical/Surgical History Medical Problems: (1) Depression (2) Hyperthyroidism (3) Ovarian cyst (4) Pyelonephritis (5) Vitamin D deficiency Family History Cancer Diabetes mellitus FH: seizures Hypertension Kidney stone Social History Smoking Status: Never Smoker Alcohol Use: occasionally Drug Use: none Marital Status: in relationship Housing Status: lives with family Occupation Status: employed Current/Historical Medications Scheduled Citalopram (Citalopram Hydrobromide), 20 MG PO DAILY Cyanocobalamin (Vitamin B12), 5,000 MCG PO DAILY Cyclobenzaprine Hcl (Flexeril), 5 MG PO TID Norelgestromin-Ethinyl Estradi (Xulane 150-35 Mcg/24Hr), 1 PATCH TOP WK Scheduled PRN Ibuprofen (Advil), 600 MG PO Q6H PRN for Pain Oxycodone Ir (Roxicodone Ir), 1-2 TAB PO Q4H PRN for Pain Allergies Coded Allergies: No Known Allergies (Unverified , 03/20/17) Physical Exam Vital Signs Date Time Temp Pulse Resp B/P (MAP) Pulse Ox O2 Delivery O2 Flow Rate FiO2 07/31/17 23:19 97 20 128/68 91 07/31/17 20:43 37.0 91 20 123/82 98 Room Air Physical Exam VITAL SIGNS - Vital signs and nursing notes were reviewed. Stable. GENERAL -22-year-old female appearing her stated age who is in no acute distress. Communicates well with provider and answers questions appropriately. SKIN - Without rashes. No petechial rashes. HEAD - NC/AT. EARS - No deformities of external structures noted on gross examination bilaterally. No pain elicited with palpation of the tragus bilaterally. External auditory canals without discharge or otorrhea. Tympanic membranes pearly kauffman without retraction or bulging. No fluid or purulent material visualized behind the TM. Handle of malleus, umbo, cone of light, pars tensa/ flaccid all easily visualized. NOSE - Midline and without cyanosis. No epistaxis or purulent drainage noted. Septum midline without deviation or septal hematoma noted. MOUTH/OROPHARYNX - Without perioral cyanosis. Buccal mucosa pink and moist and without leukoplakia. Tongue midline with equal elevation of palate bilaterally. No tonsillar hypertrophy, erythema, or exudates noted. Fair dentition noted. NECK - Neck with FROM. Supple to palpation. Minimal anterior cervical lymphadenopathy noted. No nuchal rigidity. There is left sided paraspinous musculature tenderness at the superior portion of the trapezius extending inferiorly and laterally to the left to the distribution of the left trapezius muscle around the left scapula. This is reproducible tenderness with palpation , and gentle range of motion. This muscle does appear to be tense to palpation in comparison to the right. LUNGS - Chest wall symmetric without accessory muscle use, intercostals retractions, or central cyanosis. Normal vesicular breath sounds CTA B/L. No wheezes, rales, or rhonchi appreciated. CARDIAC - RRR with S1/S2. No murmur, rubs, or gallops appreciated. ABDOMEN - Abdominal contour normal without pulsations or visible masses. BS normoactive all four quadrants. No tenderness, palpable masses, hepatosplenomegaly, or ascites noted. EXTREMITIES - No clubbing or peripheral cyanosis. No pretibial edema present. She is neurovascularly intact in the upper extremities. +5/5 strength noted in UE/LE bilaterally. Medical Decision & Procedures ER Provider Diagnostic Interpretation: [~ rep ct add3]] KUB HISTORY: No bowel movement in 5 days. COMPARISON: Abdominal series 12/29/2016. FINDINGS: The bowel gas pattern is unremarkable. There are no dilated loops of small bowel to suggest an obstruction. There appears be a few punctate bilateral renal calculi. No ureteral calculi. Moderate to large amount well-formed stool seen throughout the colon. No pneumoperitoneum or pneumatosis. IMPRESSION: 1. Moderate to large amount of well-formed stool seen throughout the colon. 2. No evidence for bowel obstruction. 3. Bilateral nephrolithiasis. No ureteral calculi. Electronically signed by: Triston Castillo M.D. 07/31/2017 10:13 PM Dictated Date/Time: 07/31/2017 10:11 PM Laboratory Results Test 07/31/17 21:25 Urine Color YELLOW Urine Appearance CLEAR (CLEAR) Urine pH 7.0 (4.5-7.5) Urine Specific [place] 1.022 (1.000-1.030) Urine Protein NEG (NEG) Urine Glucose (UA) NEG (NEG) Urine Ketones NEG (NEG) Urine Occult Blood NEG (NEG) Urine Nitrite NEG (NEG) Urine Bilirubin NEG (NEG) Urine Urobilinogen NEG (NEG) Urine Leukocyte Esterase NEG (NEG) Urine Test NEG (NEG) Medications Administered Medications (Trade) Dose Ordered Sig/[place]lin Route Start Time Stop Time Status Last Admin Dose Admin Cyclobenzaprine HCl (Flexeril Tab) 5 mg NOW STAT PO 07/31/17 21:20 07/31/17 21:21 DC 07/31/17 21:27 5 MG Oxycodone HCl (Roxicodone Immediate Rel Tab) 5 mg NOW STAT PO 07/31/17 21:20 07/31/17 21:21 DC 07/31/17 21:27 5 MG Oxycodone HCl (Roxicodone Immediate Rel Tab) 5 mg NOW STAT PO 07/31/17 22:16 07/31/17 22:17 DC 07/31/17 22:26 5 MG Oxycodone HCl (Roxicodone Immediate Rel 5MG Home Pack) 1 homepack UD STAT PO 07/31/17 23:06 07/31/17 23:07 DC 07/31/17 23:16 1 HOMEPACK Cyclobenzaprine HCl (FLEXERIL 10MG Home Pack) 1 homepack UD STAT PO 07/31/17 23:06 07/31/17 23:07 DC 07/31/17 23:16 1 HOMEPACK Medical Decision Patient was seen and evaluated as above. She presents to us today with left- sided neck pain, as well as no bowel movement for the past 5 days. There is some generalized abdominal pain with this, noting that she is tried MiraLAX without relief. In regard to the left neck pain, there is reproducible superior trapezius muscle tenderness on examination. Is reproducible with movement. No evidence of [place] or PE on my examination. I suspect this is a muscle strain of the trapezius muscle. In regard to be no bowel movement, KUB was ordered with results as above. There is moderate well-formed stool throughout the colon, no impaction. I encouraged her to use mag citrate, over- the-counter according to package directions. She is to rest over the next few days, and follow-up with the approved individual following her work-related injury. She is to use conservative management, will be given a short course of OxyIR and Flexeril. She was educated upon risk of serotonin syndrome. Urine test and urine were also obtained, all of which were negative. The short course of pain medication and muscle relaxers I believe will help to the. Of the muscle spasms. She was educated upon management, educated upon worrisome symptoms which to return, had questions answered prior to discharge, and was discharged home in good condition. It is important to note that there was trauma or fall to the neck. I suspect given that this was a musculoskeletal mechanism, it is likely a musculoskeletal injury. In the evaluation and treatment of this patient, the following differential diagnoses were considered: Musculoskeletal Strain, Discitis, Cervical Spine Fracture, Cervical Spine Dislocation, Cervical Spine Subluxation, Cervical Spondylosis, Fibromyalgia, Osteoarthritis, Polymyalgia Rheumatica, Psychogenic Pain Disorder, Tumor of Soft Tissue or Spine, impaction, intra-abdominal etiologies, UTI, , among others. In the treatment of this patient controlled medication was utilized and therefore the [facility], Prescription Drug Monitoring Program website was utilized to look up this patient. No concerns were identified that would prohibit or alter my treatment decision. Impression Primary Impression: Strain of cervical portion of right trapezius muscle Departure Information Dispostion Home / Self-Care Condition GOOD Prescriptions Oxycodone Ir (Roxicodone Ir) 5 Mg Tab 1-2 TAB PO Q4H Y for Pain, #15 TAB For Initial Treatment Prov: David Schwarz, ANDREW 07/31/17 Cyclobenzaprine Hcl (FLEXERIL) 5 Mg Tab 5 MG PO TID for 5 Days, #15 TAB PRN Prov: David Schwarz ANDREW Barnes 07/31/17 Referrals Megan Tatum D.O. (PCP) Patient Instructions My [facility] Additional Instructions You have been treated in the Emergency Department for neck pain. You have received pain medicine in the emergency department which impairs your ability to operate a vehicle. It is illegal for you to drive after receiving these medicines. You have been prescribed Oxy IR to be used for pain control. This is a narcotic medication. You cannot drive or consume alcohol while on this medicine. This medicine should only be used for pain that cannot be controlled with over-the- counter pain medicines. You have been prescribed Flexeril (cyclobenzaprine) 1-2 tabs orally, three times per day. Do NOT exceed 30 mg (6 tabs) per day. Take your first dose at bedtime as it can make you drowsy. Always take all medications as prescribed. Be careful as these increase your risk for serotonin syndrome as we discussed. For pain control, you can use the following [id number] medicines (if >12 yo): - Regular strength (325mg/tab) Tylenol (acetaminophen) 2 tabs every 4-6 hours as needed. Do not exceed 12 tablets in a 24 hour period. Avoid taking more than 3 grams (3000 mg) of Tylenol per day. This includes any other sources of acetaminophen you may take on a regular basis. - Regular strength (200 mg/tab) Advil (ibuprofen) 1-2 tabs every 4-6 hours as needed. Do not exceed a dose of 3200 mg per day. If this is an acute injury, ice can be applied to the area of pain for the first 3 days to help decrease pain and inflammation. After the first 3 days, a heating pad can be used over the area for continued soothing relief. You should schedule a follow-up appointment in 2-3 days with your Primary Care Provider for further evaluation and treatment of your back pain. For the abdominal constipation I recommend magnesium citrate. This is over-the- counter. Please take as directed. Please call the approved individual to follow-up in regard to your work-related injury. Return to the Emergency Department if your current symptoms worsen despite treatment course outlined above, or if you develop any of the following symptoms : intractable pain despite aforementioned treatment course, loss of control of your bowel or bladder, numbness or tingling in your groin, or development of a fever. Please return with any new/concerning symptoms.
[2017-07-31 23:19] VITALS: BP 128/68; PULSE 97; O2SAT 91
== END 2017-07-31 23:21 | disposition home or self-care (01) ==
LOC: C.EDB 20:31 → C.EDD 23:21
DX: S16.1XXA Strain of muscle, fascia and tendon at neck level, initial encounter (principal); X58.XXXA Exposure to other specified factors, initial encounter; E05.90 Thyrotoxicosis, unspecified without thyrotoxic crisis or storm; N83.209 Unspecified ovarian cyst, unspecified side; F32.9 Major depressive disorder, single episode, unspecified; Z87.440 Personal history of urinary (tract) infections; Z79.899 Other long term (current) drug therapy; Z80.9 Family history of malignant neoplasm, unspecified; Z83.3 Family history of diabetes mellitus; Z82.0 Family history of epilepsy and other diseases of the nervous system; Z82.49 Family history of ischemic heart disease and other diseases of the circulatory system; Z84.1 Family history of disorders of kidney and ureter

== ENCOUNTER 2017-09-10 23:22 | Emergency (ER) | payer BC, OTHER ==
[~2017-09-10] VITALS: Ht 160 cm; Wt 73.0 kg
[~2017-09-10 23:22] MED LIST changes: +CLX/20 PO; +CYAN100020 PO; +NORE1DIS7 TOP; +OXYC1TAB3 PO
[2017-09-10 23:25] VITALS: TEMP 36.7; Ht 160 cm; Wt 73.0 kg
[2017-09-11] MEDS ORDERED: SODIUM CHLORIDE 0.9% 1000ML 1,000 ML IV STA ×2 (00:05→03:52)
[2017-09-11] MEDS ORDERED: KETOROLAC TROMETHAMINE 30 MG/ML VIAL IV STA (00:05)
[2017-09-11 00:17] VITALS: O2SAT 98
[2017-09-11 00:19] LABS: URINE APPEARANCE CLEAR (CLEAR); URINE BILIRUBIN NEG (NEG); URINE COLOR DK YELLOW; URINE EPITHELIAL CELL AUTO >30 /lpf (0-5); URINE NITRITE NEG (NEG); URINE SPECIFIC GRAVITY 1.033 (1.000-1.030); UROBILINOGEN NEG (NEG)
[2017-09-11 00:20] LABS: MANUAL MICROSCOPIC REQUIRED? NO; REVIEW REQ? NO
--- NOTE | 2017-09-11 00:27 | EMERGENCY ROOM VISIT NOTE ---
History Report prepared by Sofia: Eliazar Ordaz Under the Supervision of: Dr. Jose Cruz Ortiz M.D. First contact with patient: 23:58 Chief Complaint: URINARY SYMPTOMS Stated Complaint: POSSIBLE UTI, KIDNEY PAIN Nursing Triage Summary: pt c/o burning/frequency of urination. states "i've also been having a lot of discharge." associates bilateral flank pain. History of Present Illness The patient is a 22 year old female who presents to the Emergency Room with complaints of worsening urinary burning over the past week. The patient notes that a week ago she took a bath, and afterwards she started to have this burning with urination, and she notes that she has an increase in frequency. The patient additionally notes that she is having some sharp bilateral flank pain and lower abdominal pain. Also, she states that her vision occasionally is blurry, she is dizzy,she is having vaginal discharge, she feels weak, and she has been getting the chills. The patient reports that after wiping after urination there was a green tint. The patient states that she is currently sexually active, she uses condoms, and she does not have any concern for STDs. The patient denies any fevers, cough, congestion, and nausea. She reports that she checked her blood pressure and sugar levels, and they were both normal. The patient denies any history of STDs or ectopic pregnancies, though she states that she has a history of bacterial infections. She states that her last menstrual period was 2-3 weeks ago. The patient notes that she has kidney stones , though she has never had one pass before. Source of History: patient Onset: a week ago Position: other (global) Quality: other (urinary burning) Timing: worsening Associated Symptoms: + chills, + abdominal pain, + weakness, No fevers, No cough, No nausea Note: Associated symptoms: blurry vision, dizzy, and vaginal discharge Review of Systems See HPI for pertinent positives and negatives. A total of ten systems were reviewed and were otherwise negative. Past Medical & Surgical Medical Problems: (1) Depression (2) Hyperthyroidism (3) Ovarian cyst (4) Pyelonephritis (5) Vitamin D deficiency Family History Cancer Diabetes mellitus FH: seizures Hypertension Kidney stone Social History Smoking Status: Never Smoker Alcohol Use: occasionally Drug Use: none Marital Status: in relationship Housing Status: lives with family Occupation Status: employed Current/Historical Medications Scheduled Citalopram (Citalopram Hydrobromide), 20 MG PO DAILY Cyanocobalamin (Vitamin B12), 5,000 MCG PO DAILY Doxycycline Hyclate (Doxycycline Hyclate), 1 TAB PO BID Metronidazole (Flagyl), 500 MG PO BID Norelgestromin-Ethinyl Estradi (Xulane 150-35 Mcg/24Hr), 1 PATCH TOP WK Scheduled PRN Ibuprofen (Advil), 600 MG PO Q6H PRN for Pain Ibuprofen Tab (Motrin), 800 MG PO Q8H PRN for Pain Allergies Coded Allergies: No Known Allergies (Unverified , 09/11/17) Physical Exam Vital Signs Date Time Temp Pulse Resp B/P (MAP) Pulse Ox O2 Delivery O2 Flow Rate FiO2 09/11/17 04:30 77 16 100/58 98 Room Air 09/11/17 03:42 78 16 121/85 98 Room Air 09/11/17 02:04 89 16 121/71 98 Room Air 09/11/17 00:19 75 09/11/17 00:17 98 Room Air 09/11/17 00:15 90 16 125/90 97 Room Air 09/10/17 23:25 36.7 77 18 136/83 98 Room Air Physical Exam GENERAL: Awake, alert, well-appearing, in no distress HENT: Normocephalic, atraumatic. Oropharynx unremarkable. EYES: Normal conjunctiva. Sclera non-icteric. NECK: Supple. No nuchal rigidity. FROM. No JVD. RESPIRATORY: Clear to auscultation. CARDIAC: Regular rate, normal rhythm. Extremities warm and well perfused. Pulses equal. ABDOMEN: Mild suprapubic tenderness. Soft, non-distended. No rebound or guarding. No masses. RECTAL: Deferred. PELVIC: Mild cervical erythema and mild CMT with bilateral adnexal tenderness. MUSCULOSKELETAL: Mild bilateral CVA tenderness. Chest examination reveals no tenderness. The back is symmetrical on inspection without obvious abnormality. No joint edema. LOWER EXTREMITIES: Calves are equal size bilaterally and non-tender. No edema. No discoloration. NEURO: Normal sensorium. No sensory or motor deficits noted. SKIN: No rash or jaundice noted. Medical Decision & Procedures ER Provider Diagnostic Interpretation: Radiology results as stated below per my review and radiologist interpretation: US PELVIC/ENDOVAmm endometrial stripe Ovaries appear within limits with evidence of vascular flow No evidence of adnexal mass or free fluid Radiologist: Anshul Rowe MD Laboratory Results 09/11/17 00:20 Red Blood Count 4.32, Mean Corpuscular Volume 89.4, Mean Corpuscular Hemoglobin 29.9, Mean Corpuscular Hemoglobin Concent 33.4, Mean Platelet Volume 10.5, Neutrophils (%) (Auto) 50.9, Lymphocytes (%) (Auto) 37.2, Monocytes (%) (Auto) 10.8, Eosinophils (%) (Auto) 0.7, Basophils (%) (Auto) 0.3, Neutrophils # (Auto ) 3.55, Lymphocytes # (Auto) 2.59, Monocytes # (Auto) 0.75, Eosinophils # (Auto ) 0.05, Basophils # (Auto) 0.02 09/11/17 00:20 Test 09/11/17 00:05 09/11/17 00:20 09/11/17 03:25 Urine Color DK YELLOW Urine Appearance CLEAR (CLEAR) Urine pH 5.0 (4.5-7.5) Urine Specific [place] 1.033 (1.000-1.030) Urine Protein TRACE (NEG) Urine Glucose (UA) NEG (NEG) Urine Ketones TRACE (NEG) Urine Occult Blood TRACE (NEG) Urine Nitrite NEG (NEG) Urine Bilirubin NEG (NEG) Urine Urobilinogen NEG (NEG) Urine Leukocyte Esterase TRACE (NEG) Urine WBC (Auto) 5-10 /hpf (0-5) Urine RBC (Auto) 5-10 /hpf (0-4) Urine Hyaline Casts (Auto) 5-10 /lpf (0-5) Urine Epithelial Cells (Auto) >30 /lpf (0-5) Urine Bacteria (Auto) 1+ (NEG) Urine Test NEG (NEG) White Blood Count 6.97 K/uL (4.8-10.8) Red Blood Count 4.32 M/uL (4.2-5.4) Hemoglobin 12.9 g/dL (12.0-16.0) Hematocrit 38.6 % (37-47) Mean Corpuscular Volume 89.4 fL (80-100) Mean Corpuscular Hemoglobin 29.9 pg (25-34) Mean Corpuscular Hemoglobin Concent 33.4 g/dl (32-36) Platelet Count 216 K/uL (130-400) Mean Platelet Volume 10.5 fL (7.4-10.4) Neutrophils (%) (Auto) 50.9 % Lymphocytes (%) (Auto) 37.2 % Monocytes (%) (Auto) 10.8 % Eosinophils (%) (Auto) 0.7 % Basophils (%) (Auto) 0.3 % Neutrophils # (Auto) 3.55 K/uL (1.4-6.5) Lymphocytes # (Auto) 2.59 K/uL (1.2-3.4) Monocytes # (Auto) 0.75 K/uL (0.11-0.59) Eosinophils # (Auto) 0.05 K/uL (0-0.5) Basophils # (Auto) 0.02 K/uL (0-0.2) RDW Standard Deviation 39.9 fL (36.4-46.3) RDW Coefficient of Variation 12.4 % (11.5-14.5) Immature Granulocyte % (Auto) 0.1 % Immature Granulocyte # (Auto) 0.01 K/uL (0.00-0.02) Anion Gap 8.0 mmol/L (3-11) Est Creatinine Clear Calc Drug Dose 126.9 ml/min Estimated GFR () 144.3 Estimated GFR (Non- 124.5 BUN/Creatinine Ratio 16.9 (10-20) Calcium Level 8.5 mg/dl (8.5-10.1) Total Bilirubin 0.2 mg/dl (0.2-1) Direct Bilirubin < 0.1 mg/dl (0-0.2) Aspartate Amino Transf (AST/SGOT) 12 U/L (15-37) Alanine Aminotransferase (ALT/SGPT) 14 U/L (12-78) Alkaline Phosphatase 56 U/L (45-117) Total Protein 7.6 gm/dl (6.4-8.2) Albumin 3.4 gm/dl (3.4-5.0) Date/Time Source Procedure Growth Status 09/11/17 03:25 Vaginal Drainage Trichomonas Preparation - Final Complete Laboratory results reviewed by me Medications Administered Medications (Trade) Dose Ordered Sig/Franklin Route Start Time Stop Time Status Last Admin Dose Admin Sodium Chloride 1,000 ml @ 999 mls/hr Q1H1M STAT IV 09/11/17 00:05 09/11/17 01:05 DC 09/11/17 00:18 999 MLS/HR Ketorolac Tromethamine (Toradol Inj) 30 mg NOW STAT IV 09/11/17 00:05 09/11/17 00:11 DC 09/11/17 00:18 30 MG Ceftriaxone Sodium 2000 mg/ Dextrose 70 ml @ 100 mls/hr ONE STAT IV 09/11/17 03:15 09/11/17 03:56 DC 09/11/17 03:40 100 MLS/HR Doxycycline Hyclate (Vibramycin Cap) 100 mg ONE ONCE PO 09/11/17 03:30 09/11/17 03:31 DC 09/11/17 03:40 100 MG Metronidazole (Flagyl Tab) 500 mg NOW STAT PO 09/11/17 03:24 09/11/17 03:26 DC 09/11/17 03:40 500 MG Sodium Chloride 1,000 ml @ 999 mls/hr Q1H1M STAT IV 09/11/17 03:52 09/11/17 04:52 DC 09/11/17 03:52 999 MLS/HR ED Course 2358: The patient was evaluated in room A12. A complete history and physical exam was performed. 0320: I reevaluated the patient and performed the pelvic exam, as above. Discussed results and discharge instructions: She verbalized understanding and agreement. The patient is ready for discharge. Medical Decision I reviewed the patient's past medical history, medications, and the nursing notes as described above. Differential diagnoses include: UTI, pyelonephritis, ureteral stone, STI, PID, TOA, and ovarian torsion. The patient is a 22-year-old woman with a past medical history of pyelonephritis who presents [facility] department with 1 week of dysuria and suprapubic pain and flank pain bilaterally. History of present illness. Arrival the patient is in no acute distress, afebrile with stable vital signs. He has mild bilateral CVA tenderness as well as mild suprapubic tenderness out any peritoneal signs. WBC within normal limits. LFTs unremarkable. UA positive for infection. Transvaginal ultrasound unremarkable. However, on pelvic exam had mild cervical injection and positive CMT with adnexal tenderness concerning for PID. Given the patient appears clinically stable with reassuring labs, outpatient management for PID is appropriate at this time. Treated with ceftriaxone as well as with Doxycycline and Flagyl. Case management assisting to facilitate gynecology follow-up. Findings and plan for follow-up reviewed with patient. Patient agreeable and d/c'd per discharge instructions. Medication Reconcilliation Current Medication List: was personally reviewed by me Blood Pressure Screening Patient's blood pressure: Normal blood pressure Impression Primary Impression: Pelvic inflammatory disease, acute Scribe Attestation The scribe's documentation has been prepared under my direction and personally reviewed by me in its entirety. I confirm that the note above accurately reflects all work, treatment, procedures, and medical decision making performed by me. Departure Information Dispostion Home / Self-Care Prescriptions Ibuprofen Tab (MOTRIN) 800 Mg Tab 800 MG PO Q8H Y for Pain, #30 TAB Prov: Jose Cruz Ortiz M.D. 09/11/17 Doxycycline Hyclate (Doxycycline Hyclate) 100 Mg Cap 1 TAB PO BID for 14 Days, #28 TABS Prov: Jose Cruz Ortiz M.D. 09/11/17 Metronidazole (Flagyl) 500 Mg Tab 500 MG PO BID for 14 Days, #28 TAB Prov: Jose Cruz Ortiz M.D. 09/11/17 Referrals Megan Tatum D.O. (PCP) Forms HOME CARE DOCUMENTATION FORM, IMPORTANT VISIT INFORMATION Patient Instructions ED PID, My [facility] Additional Instructions Please follow up with gynecology within the next week for re-evaluation. Your labs may be consistent with a urinary tract infection but your exam was most consistent with pelvic inflammatory disease. You were treat with antibiotics, which will treat both. Otherwise, your exam, ultrasound, and lab results did not show signs of an emergent condition at this time. Doxycycline and Flagyl as directed. Acetaminophen and Ibuprofen for pain as needed. Return to the emergency department for worsening symptoms as described in the accompanying instructions.
[2017-09-11 00:31] LABS: BASO % 0.3 %; BASO ABS # 0.02 K/uL (0-0.2); COMPLETE YES; EOS % 0.7 %; HEMATOCRIT 38.6 % (37-47); IG% 0.1 %; LYMPH % 37.2 %; LYMPH ABS # 2.59 K/uL (1.2-3.4); MEAN CELL VOLUME 89.4 fL (80-100); MEAN CORPUSCULAR HEMOGLOBIN 29.9 pg (25-34); MEAN CORPUSCULAR HGB CONC 33.4 g/dl (32-36); MEAN PLATELET VOLUME 10.5 fL (7.4-10.4); MONO % 10.8 %; NEUT % 50.9 %; PLATELET COUNT 216 K/uL (130-400); RED BLOOD COUNT 4.32 M/uL (4.2-5.4); WHITE BLOOD COUNT 6.97 K/uL (4.8-10.8)
[2017-09-11 00:48] LABS: ALT/SGPT 14 U/L (12-78); BLOOD UREA NITROGEN 11 mg/dl (7-18); BUN/CREATININE RATIO 16.9 (10-20); CALCIUM 8.5 mg/dl (8.5-10.1); CARBON DIOXIDE 25 mmol/L (21-32); CHLORIDE 104 mmol/L (98-107); CREATININE 0.66 mg/dl (0.60-1.20); GLUCOSE 92 mg/dl (70-99); POTASSIUM 3.6 mmol/L (3.5-5.1); SODIUM 137 mmol/L (136-145)
[2017-09-11 00:51] LABS: ALKALINE PHOSPHATASE 56 U/L (45-117); AST/SGOT 12 U/L (15-37)
[2017-09-11] MEDS ORDERED: CEFTRIAXONE SOD INJ 2,000 MG in DEXTROSE 5% 50ML 50 ML IV STA (03:15)
[2017-09-11] MEDS ORDERED: METRONIDAZOLE 250 MG TAB PO STA (03:24)
[2017-09-11] MEDS ORDERED: DOXYCYCLINE HYCLATE 100 MG CAP PO ONE (03:30)
[2017-09-11] MEDS ORDERED: METR-163 PO (03:48)
[2017-09-11] MEDS ORDERED: DXY100 PO (03:48)
[2017-09-11] MEDS ORDERED: IBUP-1451 PO (03:51)
[2017-09-11 04:30] VITALS: BP 100/58; PULSE 77; O2SAT 98
--- NOTE | 2017-09-11 07:04 | DIAGNOSTIC IMAGING REPORT ---
ULTRASOUND OF THE PELVIS CLINICAL HISTORY: Vaginal bleeding. Urinary frequency and dysuria. Pelvic pain. COMPARISON STUDY: Pelvic ultrasound dated 12/29/2016. TECHNIQUE: Real-time, grayscale, and color flow sonography of the pelvis is performed both transabdominally and endovaginally. Images are reviewed in the transverse and longitudinal planes. FINDINGS: Uterus: The uterus is normal in size and echotexture, measuring 8.7 x 5.2 x 6.1 cm. Endometrium: The endometrium is normal in appearance, and the endometrial stripe is normal in thickness measuring up to 0.2 cm. Ovaries: The ovaries are normal in size and morphology. The right ovary measures 2.9 x 1.2 x 2.6 cm and the left ovary measures 2.2 x 1.6 x 1.2 cm. Normal Doppler waveforms are shown within both ovaries. Pelvis: There is no free fluid in the cul-de-sac. No concerning adnexal lesion is seen. IMPRESSION: Unremarkable sonographic assessment of the pelvis. Electronically signed by: Lawrence Olivier M.D. 09/11/2017 7:03 AM Dictated Date/Time: 09/11/2017 7:01 AM
[2017-09-12] MEDS ORDERED: METR-163 PO (19:12)
[2017-09-12] MEDS ORDERED: DOXY100C76 PO (19:12)
[2017-09-12] MEDS ORDERED: IBUP-1428 PO (19:12)
[2017-09-12] MEDS ORDERED: PHEN-876 PO (21:53)
[2017-09-13 00:31] LABS: CHLAMYDIA TRACH RNA*** NOT DETECTED (NOT DETECTED); GC (NEIS GONORRHOEAE)RNA** NOT DETECTED (NOT DETECTED)
== END 2017-09-11 04:40 | disposition home or self-care (01) ==
LOC: C.EDB 23:23 → C.EDA 09-11 04:40
DX: N73.9 Female pelvic inflammatory disease, unspecified (principal); N20.0 Calculus of kidney; E05.90 Thyrotoxicosis, unspecified without thyrotoxic crisis or storm; N83.209 Unspecified ovarian cyst, unspecified side; Z83.3 Family history of diabetes mellitus; Z82.0 Family history of epilepsy and other diseases of the nervous system; Z82.49 Family history of ischemic heart disease and other diseases of the circulatory system; Z84.1 Family history of disorders of kidney and ureter

== ENCOUNTER 2017-09-12 18:06 | Emergency (ER) | payer BC ==
[~2017-09-12] VITALS: Ht 160 cm; Wt 72.3 kg
[~2017-09-12 18:06] MED LIST changes: +DXY100 PO; +IBUP-1451 PO; +METR-163 PO; -OXYC1TAB3 PO
[2017-09-12 18:15] VITALS: Ht 160 cm; Wt 72.3 kg
[2017-09-12] MEDS ORDERED: ACETAMINOPHEN 325 MG TAB PO STA (18:54)
--- NOTE | 2017-09-12 18:58 | EMERGENCY ROOM VISIT NOTE ---
History Report prepared by Sofia: Andrés Nagel Under the Supervision of: Dr. Ellie Haas M.D. First contact with patient: 18:49 Chief Complaint: URINARY SYMPTOMS Stated Complaint: BURNING WITH URINATION;PAIN IN LEFT KIDNEY Nursing Triage Summary: Pt states here Mon night for pain in right lower abd and burning with urination. States has been taking abx without relief. Pt reports vaginal discharge. States dx on Mon with a UTI and PID. History of Present Illness The patient is a 22 year old female with a history of kidney stones who presents to the Emergency Room with complaints of persistent urinary symptoms that started a few days ago. She states that she was seen here 2 nights ago because she was having pain and burning with urination, in addition to an increased urgency of urination. She says that she has been having burning even when she is not urinating. She adds that she has had some pain around where her kidneys are, and she has been feeling very weak, and at times when she stands up she gets dizzy. She notes that she has been having vaginal discharge. The patient states that she was diagnosed with a UTI and pelvic inflammatory disease here, and was sent home with 2 antibiotics (doxycycline and Flagyl), which she has been taking. She notes that she has still not been having any relief of her symptoms, and she cannot take the pain anymore. The patient went to the urgent care prior to arrival, and was sent here for evaluation. She notes that she has been having nausea from the medications she is taking. The patient says that her last bowel movement was today and it was normal. She took Ibuprofen 800 mg today for the pain, the last time being around 2 hours ago. She states that last year she was hospitalized here for similar symptoms. Source of History: patient Onset: A few days ago Position: other (global - urinary symptoms) Quality: other (burning, increased urgency, pain) Timing: other (persistent) Associated Symptoms: + nausea, + abdominal pain, + back pain, + weakness, No diarrhea (bowels normal) Note: Associated symptoms: Vaginal discharge. Dizzy upon standing. Review of Systems See HPI for pertinent positives & negatives. A total of 10 systems reviewed and were otherwise negative. Past Medical & Surgical Medical Problems: (1) Depression (2) Hyperthyroidism (3) Ovarian cyst (4) Pyelonephritis (5) Vitamin D deficiency Family History Cancer Diabetes mellitus FH: seizures Hypertension Kidney stone Social History Smoking Status: Never Smoker Alcohol Use: occasionally Drug Use: none Marital Status: in relationship Housing Status: lives with family Occupation Status: employed Current/Historical Medications Scheduled Citalopram (Citalopram Hydrobromide), 20 MG PO DAILY Cyanocobalamin (Vitamin B12), 5,000 MCG PO DAILY Doxycycline Monohydrate (Monodox), 100 MG PO BID Metronidazole (Flagyl), 500 MG PO BID Norelgestromin-Ethinyl Estradi (Xulane 150-35 Mcg/24Hr), 1 PATCH TOP WK Phenazopyridine HCl (Pyridium), 200 MG PO TID Scheduled PRN Ibuprofen (Motrin), 800 MG PO Q8H PRN for Pain Allergies Coded Allergies: No Known Allergies (Unverified , 09/12/17) Physical Exam Vital Signs Date Time Temp Pulse Resp B/P (MAP) Pulse Ox O2 Delivery O2 Flow Rate FiO2 09/12/17 22:11 36.8 77 16 116/77 99 09/12/17 21:43 77 16 116/77 99 Room Air 09/12/17 18:15 36.8 92 18 128/85 98 Room Air Physical Exam Vital signs reviewed. General: Well-appearing 22 year old female, in no significant distress. HEENT: No scleral icterus, PERRLA, neck supple. Atraumatic. Cardiovascular: Regular rate and rhythm, no extra sounds. Pulmonary: Clear to auscultation bilaterally, normal work of breathing. Abdomen: Soft, tender in the left lower quadrant, nondistended, positive bowel sounds. Musculoskeletal: Mild CVA tenderness bilaterally. Atraumatic, no peripheral edema. Neurologic: Patient awake alert and oriented x 3, full strength in all 4 extremities. Cranial nerves 2 through 12 grossly intact. Skin: Warm, dry, no rash Medical Decision & Procedures ER Provider Diagnostic Interpretation: X-ray results as stated below per interpretation by me and the radiologist: KUB HISTORY: Acute left lower quadrant abdominal pain COMPARISON: KUB 07/31/2017. FINDINGS: The bowel gas pattern is non-obstructive. There is no organomegaly. Punctate radiodensities overlie the renal shadows suggesting nephrolithiasis. Renal shadows are partially obscured by bowel gas. No ureteral calculi or left nephrolithiasis identified. No significant stool volume to suggest constipation. No pneumoperitoneum or pneumatosis. No fracture. IMPRESSION: 1. Bilateral nephrolithiasis without ureteral calculi identified. 2. Nonobstructive bowel gas pattern. Electronically signed by: Junior Mcdonald M.D. 09/12/2017 8:57 PM Dictated Date/Time: 09/12/2017 8:55 PM Laboratory Results 09/12/17 19:14 Red Blood Count 4.47, Mean Corpuscular Volume 89.3, Mean Corpuscular Hemoglobin 30.4, Mean Corpuscular Hemoglobin Concent 34.1, Mean Platelet Volume 10.6, Neutrophils (%) (Auto) 62.6, Lymphocytes (%) (Auto) 25.9, Monocytes (%) (Auto) 10.7, Eosinophils (%) (Auto) 0.6, Basophils (%) (Auto) 0.1, Neutrophils # (Auto ) 4.21, Lymphocytes # (Auto) 1.74, Monocytes # (Auto) 0.72, Eosinophils # (Auto ) 0.04, Basophils # (Auto) 0.01 09/12/17 19:14 Test 09/12/17 19:10 09/12/17 19:14 Urine Color YELLOW Urine Appearance CLEAR (CLEAR) Urine pH 5.5 (4.5-7.5) Urine Specific Veblen 1.026 (1.000-1.030) Urine Protein NEG (NEG) Urine Glucose (UA) NEG (NEG) Urine Ketones NEG (NEG) Urine Occult Blood NEG (NEG) Urine Nitrite NEG (NEG) Urine Bilirubin NEG (NEG) Urine Urobilinogen NEG (NEG) Urine Leukocyte Esterase TRACE (NEG) Urine WBC (Auto) 1-5 /hpf (0-5) Urine RBC (Auto) 0-4 /hpf (0-4) Urine Hyaline Casts (Auto) 1-5 /lpf (0-5) Urine Epithelial Cells (Auto) >30 /lpf (0-5) Urine Bacteria (Auto) NEG (NEG) White Blood Count 6.73 K/uL (4.8-10.8) Red Blood Count 4.47 M/uL (4.2-5.4) Hemoglobin 13.6 g/dL (12.0-16.0) Hematocrit 39.9 % (37-47) Mean Corpuscular Volume 89.3 fL (80-100) Mean Corpuscular Hemoglobin 30.4 pg (25-34) Mean Corpuscular Hemoglobin Concent 34.1 g/dl (32-36) Platelet Count 215 K/uL (130-400) Mean Platelet Volume 10.6 fL (7.4-10.4) Neutrophils (%) (Auto) 62.6 % Lymphocytes (%) (Auto) 25.9 % Monocytes (%) (Auto) 10.7 % Eosinophils (%) (Auto) 0.6 % Basophils (%) (Auto) 0.1 % Neutrophils # (Auto) 4.21 K/uL (1.4-6.5) Lymphocytes # (Auto) 1.74 K/uL (1.2-3.4) Monocytes # (Auto) 0.72 K/uL (0.11-0.59) Eosinophils # (Auto) 0.04 K/uL (0-0.5) Basophils # (Auto) 0.01 K/uL (0-0.2) RDW Standard Deviation 39.9 fL (36.4-46.3) RDW Coefficient of Variation 12.4 % (11.5-14.5) Immature Granulocyte % (Auto) 0.1 % Immature Granulocyte # (Auto) 0.01 K/uL (0.00-0.02) Anion Gap 6.0 mmol/L (3-11) Est Creatinine Clear Calc Drug Dose 132.3 ml/min Estimated GFR () 146.5 Estimated GFR (Non- 126.4 BUN/Creatinine Ratio 14.2 (10-20) Calcium Level 8.6 mg/dl (8.5-10.1) Total Bilirubin 0.2 mg/dl (0.2-1) Direct Bilirubin < 0.1 mg/dl (0-0.2) Aspartate Amino Transf (AST/SGOT) 12 U/L (15-37) Alanine Aminotransferase (ALT/SGPT) 14 U/L (12-78) Alkaline Phosphatase 58 U/L (45-117) Total Protein 7.6 gm/dl (6.4-8.2) Albumin 3.5 gm/dl (3.4-5.0) Laboratory results per my review. Medications Administered Medications (Trade) Dose Ordered Sig/Franklin Route Start Time Stop Time Status Last Admin Dose Admin Acetaminophen (Tylenol Tab) 650 mg NOW STAT PO 09/12/17 18:54 09/12/17 18:57 DC 09/12/17 19:12 650 MG Phenazopyridine HCl (Pyridium Tab) 200 mg NOW STAT PO 09/12/17 21:23 09/12/17 21:24 DC 09/12/17 21:42 200 MG ED Course 1850: Past medical records reviewed. The patient was evaluated in room B5. A complete history and physical examination was performed. 1853: Ordered Tylenol Tab 650 mg PO. 2122: Ordered Pyridium Tab 200 mg PO. 2120: Upon reevaluation, the patient appeared to have improvement of her symptoms. I discussed findings with her. She verbalized agreement of the treatment plan. She was discharged home. Medical Decision Differential diagnosis: Etiologies such as appendicitis, diverticulitis, PUD, biliary pathology, UTI, pancreatitis, obstruction, mesenteric ischemia, aortic pathology, infections, inflammatory bowel disease, renal colic, as well as others were entertained. This pt was evaluated and appeared to be in no distress. IV access was obtained and lab work was drawn. Pt was given tylenol po. Lab work is fairly unrevealing. Pelvic exam was performed 2 days ago an Cx are pending. US pelvis was largely normal. UA is negative. Pt was advised to continue ATBx as Rx for cervicitis and f/u with OBGYN for continued sx. She was given pyridium for dysuria and advised of oragne discoloration of urine and tears. Pt will return to the ED for worsening of symptoms or any medical concerns. Medication Reconcilliation Current Medication List: was personally reviewed by me Blood Pressure Screening Patient's blood pressure: Normal blood pressure Impression Primary Impression: Dysuria Additional Impression: LLQ abdominal pain Scribe Attestation The scribe's documentation has been prepared under my direction and personally reviewed by me in its entirety. I confirm that the note above accurately reflects all work, treatment, procedures, and medical decision making performed by me. Departure Information Dispostion Home / Self-Care Prescriptions Phenazopyridine HCl (Pyridium) 200 Mg Tab 200 MG PO TID, #6 TAB Prov: Ellie Haas M.D. 09/12/17 Referrals Megan Tatum D.O. (PCP) Patient Instructions My [facility], Phenazopyridine tablets Additional Instructions Diagnosis: Dysuria Pyridium 200 mg 3 times daily as needed for painful urination. Please read the handout. Drink plenty of clear fluids. Continue your antibiotics as prescribed. Continue ibuprofen as prescribed. Follow-up with [facility] as soon as possible for reevaluation. Return to the ER for worsening of symptoms or any medical concerns. Problem Qualifiers
[2017-09-12] MEDS ORDERED: IBUP-1428 PO (19:12)
[2017-09-12] MEDS ORDERED: DOXY100C76 PO (19:12)
[2017-09-12] MEDS ORDERED: METR-163 PO (19:12)
[2017-09-12 19:42] LABS: BASO % 0.1 %; BASO ABS # 0.01 K/uL (0-0.2); COMPLETE YES; EOS % 0.6 %; HEMATOCRIT 39.9 % (37-47); IG% 0.1 %; LYMPH % 25.9 %; LYMPH ABS # 1.74 K/uL (1.2-3.4); MEAN CELL VOLUME 89.3 fL (80-100); MEAN CORPUSCULAR HEMOGLOBIN 30.4 pg (25-34); MEAN CORPUSCULAR HGB CONC 34.1 g/dl (32-36); MEAN PLATELET VOLUME 10.6 fL (7.4-10.4); MONO % 10.7 %; NEUT % 62.6 %; PLATELET COUNT 215 K/uL (130-400); RED BLOOD COUNT 4.47 M/uL (4.2-5.4); WHITE BLOOD COUNT 6.73 K/uL (4.8-10.8)
[2017-09-12 19:45] LABS: URINE APPEARANCE CLEAR (CLEAR); URINE BILIRUBIN NEG (NEG); URINE COLOR YELLOW; URINE EPITHELIAL CELL AUTO >30 /lpf (0-5); URINE NITRITE NEG (NEG); URINE PH 5.5 (4.5-7.5); URINE SPECIFIC GRAVITY 1.026 (1.000-1.030); UROBILINOGEN NEG (NEG); ZZUR CULT IF INDIC CLEAN CATCH NO
[2017-09-12 19:46] LABS: MANUAL MICROSCOPIC REQUIRED? NO; REVIEW REQ? NO
[2017-09-12 19:50] LABS: ALT/SGPT 14 U/L (12-78); AST/SGOT 12 U/L (15-37); BLOOD UREA NITROGEN 9 mg/dl (7-18); BUN/CREATININE RATIO 14.2 (10-20); CALCIUM 8.6 mg/dl (8.5-10.1); CARBON DIOXIDE 24 mmol/L (21-32); CHLORIDE 106 mmol/L (98-107); CREATININE 0.63 mg/dl (0.60-1.20); GLUCOSE 92 mg/dl (70-99); POTASSIUM 3.7 mmol/L (3.5-5.1); SODIUM 136 mmol/L (136-145)
[2017-09-12 19:53] LABS: ALKALINE PHOSPHATASE 58 U/L (45-117)
--- NOTE | 2017-09-12 20:59 | DIAGNOSTIC IMAGING REPORT ---
KUB HISTORY: Acute left lower quadrant abdominal pain COMPARISON: KUB 07/31/2017. FINDINGS: The bowel gas pattern is non-obstructive. There is no organomegaly. Punctate radiodensities overlie the renal shadows suggesting nephrolithiasis. Renal shadows are partially obscured by bowel gas. No ureteral calculi or left nephrolithiasis identified. No significant stool volume to suggest constipation. No pneumoperitoneum or pneumatosis. No fracture. IMPRESSION: 1. Bilateral nephrolithiasis without ureteral calculi identified. 2. Nonobstructive bowel gas pattern. Electronically signed by: Junior Mcdonald M.D. 09/12/2017 8:57 PM Dictated Date/Time: 09/12/2017 8:55 PM
[2017-09-12] MEDS ORDERED: PHENAZOPYRIDINE HCL 200 MG TAB PO STA (21:23)
[2017-09-12] MEDS ORDERED: PHEN-876 PO (21:53)
[2017-09-12 22:11] VITALS: BP 116/77; PULSE 77; TEMP 36.8; O2SAT 99
== END 2017-09-12 22:11 | disposition home or self-care (01) ==
LOC: C.EDB 18:08
DX: R30.0 Dysuria (principal); F32.9 Major depressive disorder, single episode, unspecified; E05.90 Thyrotoxicosis, unspecified without thyrotoxic crisis or storm; E55.9 Vitamin D deficiency, unspecified; Z80.9 Family history of malignant neoplasm, unspecified; Z83.3 Family history of diabetes mellitus; Z82.0 Family history of epilepsy and other diseases of the nervous system; Z82.49 Family history of ischemic heart disease and other diseases of the circulatory system; Z84.1 Family history of disorders of kidney and ureter; Z79.899 Other long term (current) drug therapy

== ENCOUNTER 2017-11-08 19:34 | Emergency (ER) | payer BC ==
[~2017-11-08] VITALS: Ht 160 cm; Wt 70.9 kg
[~2017-11-08 19:34] MED LIST changes: +DOXY100C76 PO; -DXY100 PO; -IBUP-1050 PO; +IBUP-1428 PO; -IBUP-1451 PO; +PHEN-876 PO
[2017-11-08 19:39] VITALS: TEMP 36.8; Ht 160 cm; Wt 70.9 kg
[2017-11-08 21:04] VITALS: O2SAT 98
[2017-11-08 21:32] LABS: BASO % 0.4 %; BASO ABS # 0.02 K/uL (0-0.2); EOS % 1.2 %; EOS ABS # 0.07 K/uL (0-0.5); HEMATOCRIT 40.3 % (37-47); HEMOGLOBIN 13.8 g/dL (12.0-16.0); IG# 0.01 K/uL (0.00-0.02); LYMPH % 40.2 %; LYMPH ABS # 2.28 K/uL (1.2-3.4); MEAN CORPUSCULAR HEMOGLOBIN 30.5 pg (25-34); MEAN CORPUSCULAR HGB CONC 34.2 g/dl (32-36); MEAN PLATELET VOLUME 10.9 fL (7.4-10.4); MONO % 11.8 %; MONO ABS # 0.67 K/uL (0.11-0.59); NEUT % 46.2 %; NEUT ABS # 2.62 K/uL (1.4-6.5); PLATELET COUNT 191 K/uL (130-400); RED CELL DISTRIBUTION WIDTH CV 11.8 % (11.5-14.5); RED CELL DISTRIBUTION WIDTH SD 38.3 fL (36.4-46.3); WHITE BLOOD COUNT 5.67 K/uL (4.8-10.8)
[2017-11-08 21:41] LABS: ALBUMIN 3.6 gm/dl (3.4-5.0); ALT/SGPT 24 U/L (12-78); AST/SGOT 17 U/L (15-37); BLOOD UREA NITROGEN 11 mg/dl (7-18); CALCIUM 8.9 mg/dl (8.5-10.1); CARBON DIOXIDE 26 mmol/L (21-32); CREATININE 0.67 mg/dl (0.60-1.20); GLUCOSE 91 mg/dl (70-99); POTASSIUM 3.9 mmol/L (3.5-5.1); SODIUM 137 mmol/L (136-145)
--- NOTE | 2017-11-08 21:45 | DIAGNOSTIC IMAGING REPORT ---
CHEST ONE VIEW PORTABLE HISTORY: 22 years-old Female chest pain acute atypical chest pain COMPARISON: Acute abdominal series radiographs 12/29/2016 TECHNIQUE: Portable AP view of the chest FINDINGS: Cardiomediastinal and hilar silhouettes are within normal limits. There is no pneumothorax, pleural effusion, focal airspace consolidation or overt pulmonary edema. Bones of the chest appear grossly intact. IMPRESSION: No acute process. The above report was generated using voice recognition software. It may contain grammatical, syntax or spelling errors. Electronically signed by: Junior Mcdonald M.D. 11/08/2017 9:43 PM Dictated Date/Time: 11/08/2017 9:42 PM
[2017-11-08 21:51] LABS: ALKALINE PHOSPHATASE 67 U/L (45-117); TOTAL PROTEIN 7.8 gm/dl (6.4-8.2)
[2017-11-08] MEDS ORDERED: ACETAMINOPHEN 500 MG TAB PO STA (22:14)
--- NOTE | 2017-11-08 22:49 | EMERGENCY ROOM VISIT NOTE ---
History First contact with patient: 20:50 Chief Complaint: IRREGULAR HEARTBEAT Stated Complaint: IRREGULAR HEARTBEAT, POUNDING Nursing Triage Summary: pt with c/o intermittent CP for several weeks. intermittent tachycardia with HR in 130s. pt states she does drink caffeine. takes control. smokes and travels via car over 2 hours often. History of Present Illness The patient is a 22 year old female who presents to the Emergency Room with complaints of chest pain and palpitations. The patient reports that for the past 2 weeks, she has had palpitations which she describes as "feeling like her heart is beating out of her chest." She states that she also gets intermittent pains in her chest which occur when she is up and moving around. She states that her heart rate elevated to 135 today while she was up walking around, but when she laid back down it improved to 85. She describes the discomfort as a tightness in her chest and a sharp pain in the left side of the chest. She reports that she is at times short of breath. She has some associated left arm numbness/tingling. She rates her overall discomfort a 5/10. She denies any nausea, vomiting or abdominal pain. She denies any history of cardiac disease. She denies any history of blood clots. She smokes cigarettes socially and does take control pills. She denies any recent travel or recent surgeries. Review of Systems A complete 10 point review of systems was reviewed with the patient with pertinent positives and negatives as per history of present illness. All else were negative. Past Medical/Surgical History Medical Problems: (1) Depression (2) Hyperthyroidism (3) Ovarian cyst (4) Pyelonephritis (5) Vitamin D deficiency Family History Cancer Diabetes mellitus FH: seizures Hypertension Kidney stone Social History Smoking Status: Never Smoker Alcohol Use: occasionally Drug Use: none Marital Status: in relationship Housing Status: lives with family Occupation Status: employed Current/Historical Medications Scheduled Norelgestromin-Ethinyl Estradi (Xulane 150-35 Mcg/24Hr), 1 PATCH TOP WK Physical Exam Vital Signs Date Time Temp Pulse Resp B/P (MAP) Pulse Ox O2 Delivery O2 Flow Rate FiO2 11/08/17 23:06 82 18 123/77 98 11/08/17 22:47 82 18 123/77 98 Room Air 11/08/17 22:17 88 21 114/78 98 Room Air 11/08/17 21:47 88 14 114/74 98 Room Air 11/08/17 21:04 98 Room Air 11/08/17 21:04 98 Room Air 11/08/17 20:51 88 11/08/17 20:47 77 20 143/90 99 Room Air 11/08/17 19:39 36.8 98 16 131/80 98 Room Air Physical Exam VITALS: Vitals are noted on the nurse's note and reviewed by myself. Vital signs stable. GENERAL: This is a 22-year-old female, in no acute distress, nondiaphoretic, well-developed well-nourished. SKIN: The skin was without rashes. EARS: External auditory canals clear, tympanic membranes pearly kauffman without erythema or effusion bilaterally. EYES: Pupils equal round and reactive to light and accommodation. MOUTH: Mucous membranes moist. Tonsils are not enlarged. Pharynx without erythema or exudate. NECK: Supple without nuchal rigidity. No lymphadenopathy. HEART: Regular rate and rhythm without murmurs gallops or rubs. LUNGS: Clear to auscultation bilaterally without wheezes, rales or rhonchi. No retractions or accessory muscle use. NEURO: Patient was alert and oriented to person place and time. Medical Decision & Procedures ER Provider Diagnostic Interpretation: CHEST ONE VIEW PORTABLE HISTORY: 22 years-old Female chest pain acute atypical chest pain COMPARISON: Acute abdominal series radiographs 12/29/2016 TECHNIQUE: Portable AP view of the chest FINDINGS: Cardiomediastinal and hilar silhouettes are within normal limits. There is no pneumothorax, pleural effusion, focal airspace consolidation or overt pulmonary edema. Bones of the chest appear grossly intact. IMPRESSION: No acute process. Laboratory Results 11/08/17 20:53 Red Blood Count 4.53, Mean Corpuscular Volume 89.0, Mean Corpuscular Hemoglobin 30.5, Mean Corpuscular Hemoglobin Concent 34.2, Mean Platelet Volume 10.9, Neutrophils (%) (Auto) 46.2, Lymphocytes (%) (Auto) 40.2, Monocytes (%) (Auto) 11.8, Eosinophils (%) (Auto) 1.2, Basophils (%) (Auto) 0.4, Neutrophils # (Auto ) 2.62, Lymphocytes # (Auto) 2.28, Monocytes # (Auto) 0.67, Eosinophils # (Auto ) 0.07, Basophils # (Auto) 0.02 11/08/17 20:53 Test 11/08/17 20:53 White Blood Count 5.67 K/uL (4.8-10.8) Red Blood Count 4.53 M/uL (4.2-5.4) Hemoglobin 13.8 g/dL (12.0-16.0) Hematocrit 40.3 % (37-47) Mean Corpuscular Volume 89.0 fL (80-100) Mean Corpuscular Hemoglobin 30.5 pg (25-34) Mean Corpuscular Hemoglobin Concent 34.2 g/dl (32-36) Platelet Count 191 K/uL (130-400) Mean Platelet Volume 10.9 fL (7.4-10.4) Neutrophils (%) (Auto) 46.2 % Lymphocytes (%) (Auto) 40.2 % Monocytes (%) (Auto) 11.8 % Eosinophils (%) (Auto) 1.2 % Basophils (%) (Auto) 0.4 % Neutrophils # (Auto) 2.62 K/uL (1.4-6.5) Lymphocytes # (Auto) 2.28 K/uL (1.2-3.4) Monocytes # (Auto) 0.67 K/uL (0.11-0.59) Eosinophils # (Auto) 0.07 K/uL (0-0.5) Basophils # (Auto) 0.02 K/uL (0-0.2) RDW Standard Deviation 38.3 fL (36.4-46.3) RDW Coefficient of Variation 11.8 % (11.5-14.5) Immature Granulocyte % (Auto) 0.2 % Immature Granulocyte # (Auto) 0.01 K/uL (0.00-0.02) D-Dimer 220 ug/L FEU (0-500) Anion Gap 5.0 mmol/L (3-11) Est Creatinine Clear Calc Drug Dose 123.3 ml/min Estimated GFR () 143.6 Estimated GFR (Non- 123.9 BUN/Creatinine Ratio 16.1 (10-20) Calcium Level 8.9 mg/dl (8.5-10.1) Total Bilirubin 0.2 mg/dl (0.2-1) Aspartate Amino Transf (AST/SGOT) 17 U/L (15-37) Alanine Aminotransferase (ALT/SGPT) 24 U/L (12-78) Alkaline Phosphatase 67 U/L (45-117) Troponin I < 0.015 ng/ml (0-0.045) Total Protein 7.8 gm/dl (6.4-8.2) Albumin 3.6 gm/dl (3.4-5.0) Globulin 4.2 gm/dl (2.5-4.0) Albumin/Globulin Ratio 0.9 (0.9-2) Thyroid Stimulating Hormone (TSH) 0.959 uIu/ml (0.300-4.500) Human Chorionic Gonadotropin, Qual NEG (NEG) Medications Administered Medications (Trade) Dose Ordered Sig/Franklin Route Start Time Stop Time Status Last Admin Dose Admin Acetaminophen (Tylenol Tab) 1,000 mg NOW STAT PO 11/08/17 22:14 11/08/17 22:16 DC 11/08/17 22:26 1,000 MG ECG Indication: chest pain Rate (beats per minute): 84 Rhythm: normal sinus Findings: no acute ischemic change, no ectopy Medical Decision Differential diagnosis includes acute coronary syndrome, pulmonary embolism, pneumothorax, pericarditis, myocarditis, endocarditis, anxiety, musculoskeletal pain, GERD, costochondritis, pneumonia, among others. The patient is a 22-year-old female who presents today complaining of palpitations and intermittent chest discomfort. Labs revealed no leukocytosis, anemia or concerning electrolyte abnormalities. Serum was negative. Troponin was not elevated. D-dimer was not elevated. TSH was within normal limits. EKG was interpreted by myself and showed a normal sinus rhythm without ischemia or ectopy. Patient was placed on the clerical specialist and monitored throughout the duration of her stay. At one point during the patient's stay, she did report recurrence of symptoms, however on the monitor she remained in a normal sinus rhythm. The patient was reassured regarding today's findings. She will need further follow-up with her primary care provider. She verbalized understanding of my assessment and treatment plan and was discharged home in good condition. Based on the patient's presentation and work up, I feel the patient is stable for outpatient treatment. The patient was educated to return to the emergency department for any worsening of their current condition or new/concerning symptoms. She will follow up with her PCP. Medication Reconcilliation Current Medication List: was personally reviewed by me Blood Pressure Screening Patient's blood pressure: Normal blood pressure Impression Primary Impression: Palpitations Departure Information Dispostion Home / Self-Care Condition GOOD Referrals Megan Tatum D.O. (PCP) Patient Instructions My [facility] Additional Instructions You have been treated in the Emergency Department for your Chest Pain. Laboratory results and Imaging Studies have ruled out any acute cardiac or pulmonary cause of your chest pain. For pain control, you can use the following [id number] medicines (if >12 yo): - Regular strength (325mg/tab) Tylenol (acetaminophen) 2 tabs every 4-6 hours as needed. Do not exceed 12 tablets in a 24 hour period. Avoid taking more than 4 grams (4000 mg) of Tylenol per day. This includes any other sources of acetaminophen you may take on a regular basis. - Regular strength (200 mg/tab) Advil (ibuprofen) 1-2 tabs every 4-6 hours as needed. Do not exceed a dose of 3200 mg per day. Follow-up with your primary care provider tomorrow as scheduled. Return to the Emergency Department if your current symptoms worsen despite treatment course outlined above, or if you develop any of the following symptoms : worsening chest pain, associated jaw/arm pain, nausea, dizziness, shortness of breath, bloody cough, or fainting.
[2017-11-08 23:06] VITALS: BP 123/77; PULSE 82; O2SAT 98
== END 2017-11-08 23:07 | disposition home or self-care (01) ==
LOC: C.EDB 19:35 → C.EDA 23:07
DX: R00.2 Palpitations (principal); Z79.3 Long term (current) use of hormonal contraceptives; Z83.3 Family history of diabetes mellitus; Z82.0 Family history of epilepsy and other diseases of the nervous system; Z82.49 Family history of ischemic heart disease and other diseases of the circulatory system; Z84.1 Family history of disorders of kidney and ureter

== ENCOUNTER 2018-05-11 05:03 | Emergency (ER) | payer BC ==
[~2018-05-11] VITALS: Ht 160 cm; Wt 72.2 kg
[~2018-05-11 05:03] MED LIST changes: -CLX/20 PO; -CYAN100020 PO; -DOXY100C76 PO; -IBUP-1428 PO; -METR-163 PO; -PHEN-876 PO
[2018-05-11 05:07] VITALS: TEMP 36.8; Ht 160 cm; Wt 72.2 kg
--- NOTE | 2018-05-11 05:26 | EMERGENCY ROOM VISIT NOTE ---
History Report prepared by Sofia: Chris Coello Under the Supervision of: Dr. Ana Laura Sinclair D.O. First contact with patient: 05:16 Chief Complaint: ED VAG BLEEDING Stated Complaint: VAGINAL BLEEDING,DISCHARGE,NAUSEA History of Present Illness The patient is a 23 year old female who presents to the Emergency Room with complaints of constant vaginal bleeding beginning today. The patient states that she went to the bathroom tonight and thought that she got her period. She notes that she is on the pill and is currently on the white section which indicates that she is late with her period. She reports that she should have started her period earlier in the week. The patient sates that she took a test two days ago which came back negative. She notes that she felt something "come out" of her while she was at work today. She reports that she then went to the bathroom and noticed unusual vaginal discharge on her pad. She also complains of abdominal cramping, nausea, a headache, ankle swelling, and breast pain. The patient states that she has been once before and currently has a three year old at home. Source of History: patient Onset: today Position: other (vagina) Quality: other (bleeding) Timing: constant Associated Symptoms: + headache, + nausea Note: The patient also complains of abdominal cramping, ankle swelling, and breast pain. Review of Systems See HPI for pertinent positives & negatives. A total of 10 systems reviewed and were otherwise negative. Past Medical & Surgical Medical Problems: (1) Depression (2) Hyperthyroidism (3) Ovarian cyst (4) (5) Pyelonephritis (6) Vitamin D deficiency Family History Cancer Diabetes mellitus FH: seizures Hypertension Kidney stone Social History Smoking Status: Never Smoker Alcohol Use: occasionally Drug Use: none Marital Status: in relationship Housing Status: lives with family Occupation Status: employed Current/Historical Medications Scheduled Escitalopram Oxalate (Escitalopram Oxalate), 10 MG PO DAILY Ethinyl Estrad/Desogestrel (Apri), 1 TAB PO DAILY Allergies Coded Allergies: No Known Allergies (Unverified , 05/11/18) Physical Exam Vital Signs Date Time Temp Pulse Resp B/P (MAP) Pulse Ox O2 Delivery O2 Flow Rate FiO2 05/11/18 06:24 74 131/90 99 05/11/18 05:07 36.8 84 16 148/94 97 Room Air Physical Exam HEENT: Head - normocephalic and atraumatic Pupils are equal, round, and reactive to light. Extraocular eye muscles are intact, and sclera are anicteric. Nose - moist nasal mucosa without discharge. Mouth - moist buccal mucosa. Oropharynx is nonerythematous and there is no tonsillar exudate or edema noted. Neck: Supple; no JVD, nuchal rigidity, cervical lymphadenopathy. Heart: Regular rate and rhythm. There is a normal S1 and S2 with no murmurs, clicks, or gallops appreciated. Lungs: Clear to auscultation bilaterally with no wheezes, rales, or rhonchi. Abdomen: Soft, completely nontender, nondistended, with good bowel sounds. There are no palpable pulsatile masses or hepatosplenomegaly. There is no guarding, rigidity, or rebound noted. Extremities: No evidence of cyanosis, clubbing, or edema. There are easily palpable peripheral pulses. Skin: warm and dry with good turgor and no rashes. Medical Decision & Procedures Laboratory Results Test 05/11/18 05:34 Human Chorionic Gonadotropin, Quant < 1 mIU/mL Laboratory results per my review. ED Course 0519: Past medical records reviewed. The patient was evaluated in room A10. A complete history and physical exam was performed. The patient provided me with a collection specimen cup with some tissue that she passed. Labs were drawn as above. 0615: Upon reevaluation, the patient is stable. I discussed findings and results with her. She verbalized agreement of the treatment plan. The patient was discharged home. Medical Decision The patient is a 23 year old female who presents to the Emergency Room with complaints of constant vaginal bleeding beginning today. Differential diagnoses include: menstrual cycle, missed , and molar . Lab Results Show: Quantitative HCG <1. Is a 23-year-old female patient who presents to the emergency department after developing vaginal bleeding and passing some solid tissue from the vagina. The patient notes that she takes oral contraceptives and her period was late. She took a test 2 days ago which was negative. However, at work tonight, she was concerned when she passed some solid tissue. Quantitative hCG was negative. She is currently bleeding like a typical period. 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 Medication Reconcilliation Current Medication List: was personally reviewed by me Blood Pressure Screening Patient's blood pressure: Elevated blood pressure Blood pressure disposition: Elevated BP felt to be situational Impression Primary Impression: Vaginal bleeding Scribe Attestation The scribe's documentation has been prepared under my direction and personally reviewed by me in its entirety. I confirm that the note above accurately reflects all work, treatment, procedures, and medical decision making performed by me. Departure Information Dispostion Home / Self-Care Referrals Megan Tatum D.O. (PCP) Forms HOME CARE DOCUMENTATION FORM, IMPORTANT VISIT INFORMATION, WORK / SCHOOL INSTRUCTIONS Patient Instructions My [facility] Additional Instructions Please follow up with your PCP or nib assembler for a pap smear if you haven't had one in the past year.
[2018-05-11] MEDS ORDERED: APRI28 PO (05:41)
[2018-05-11] MEDS ORDERED: LXP10 PO (05:41)
[2018-05-11 06:24] VITALS: BP 131/90; PULSE 74; O2SAT 99
== END 2018-05-11 06:25 | disposition home or self-care (01) ==
LOC: C.EDB 05:05 → C.EDA 06:25
DX: N93.9 Abnormal uterine and vaginal bleeding, unspecified (principal); N83.209 Unspecified ovarian cyst, unspecified side; F32.9 Major depressive disorder, single episode, unspecified; Z79.3 Long term (current) use of hormonal contraceptives; Z79.899 Other long term (current) drug therapy

== ENCOUNTER 2020-12-03 07:40 | Inpatient (IN) ==
[2020-12-03] MEDS ORDERED: KETOROLAC TROMETHAMINE 15 MG/ML VIAL IV STA (07:55)
[2020-12-03] MEDS ORDERED: MoRPHine SULFATE 4 MG/ML 1 ML CARP\\VIAL IV STA ×2 (07:55→08:44)
[2020-12-03] MEDS ORDERED: ONDANSETRON INJ 2 MG/ML 2 ML VIAL IV STA ×2 (07:55→09:34)
--- NOTE | 2020-12-03 07:58 | Emergency Department Note ---
History of Present Illness General Chief complaint: Kidney Stone Stated complaint: KIDNEY STONE Time Seen by Provider: 12/03/20 07:46 History of Present Illness Maximum Pain Intensity: 10 This is an otherwise healthy 25-year-old female that presents to the emergency department via private vehicle with complaints of "left groin/flank pain". The patient notes that she was seen here on 11/25/2020 and diagnosed with a 4 mm distal ureteral stone. She has been doing well since that time and has been taking the medications as previously prescribed without difficulty. Then today around 7 AM she notes sharp onset of similar pain but much worse in severity. Current discomfort 07/24. She notes it is in the left lower quadrant/left flank and vaginal region. She denies any fevers or chills. She does feel nauseous and did have one episode of vomiting. No trauma or injury. Home Medications Medication Instructions Recorded Confirmed Type ondansetron 4 mg PO Q8H PRN #30 tab 11/25/20 12/03/20 Rx tamsulosin [Flomax] 0.4 mg PO DAILY #14 cap 11/25/20 12/03/20 Rx Allergies Allergy/AdvReac Type Severity Reaction Status Date / Time No Known Allergies Allergy Verified 12/03/20 08:07 Past Med/Surg History Medical History (Updated 12/03/20 @ 17:11 by David Schwarz PA-C) Anxiety Depression Dysuria GERD (gastroesophageal reflux disease) On occasions Hyperthyroidism Not on any medication LLQ abdominal pain Low TSH level Migraine Ovarian cyst Palpitations Pyelonephritis Vitamin D deficiency Surgical History Nasal fracture Repair of nasal fracture Family History Mother Breast cancer Other Cancer Hypertension Kidney stones Denies family history of Ovarian cancer Prostate cancer Heart disease Myocardial infarction Colorectal cancer Social History Smoking Status: Never smoker Hx Alcohol Use: Yes Alcohol type: beer and wine Hx Substance Use: No Preferred Language: Kiswahili Communication Ability: Effective Visual Impairment: No Limitations Hearing Ability: Normal 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 Beliefs That Will Affect Care: None marital status: Single Current Living Situation: Parent current occupational status: employed Feels Safe at Home: Yes Childhood Exposure to Second-Hand Smoke: No Physical Activity Frequency: Daily Seatbelt Use: always Sunscreen Use: Yes Assistive Devices: None Review of Systems A total of 10 systems reviewed and were otherwise negative Physical Exam Vital Signs Vital Signs - 24 hr 12/03/20 07:42 12/03/20 09:40 Temperature 36.4 C L Temperature Source Temporal Artery Scan Pulse Rate 116 H Pulse Rate [Right Finger] 71 Pulse Rhythm [Right Finger] Regular Pulse Strength [Right Finger] Normal Respiratory Rate 24 20 Respiratory Effort / Characteristics Non-Labored Non-Labored Spontaneous Respiratory Depth Normal Normal Respiratory Pattern Regular Regular Blood Pressure 148/68 H Blood Pressure [Right Arm] 127/67 Blood Pressure Mean 94 Blood Pressure Mean [Right Arm] 87 Blood Pressure Position Sitting Pulse Oximetry 97 98 Oxygen Delivery Method Room Air Room Air Sepsis Recent Fever Within 48 Hours No Sepsis New/Unexplained Change in Mental Status No Sepsis Action Taken by Nursing Physician Notified VITAL SIGNS - Vital signs and nursing notes were reviewed. Tachycardic, otherwise stable. GENERAL -25-year-old female appearing her stated age who is in no acute distress but appears to be in pain. Communicates well with provider and answers questions appropriately. SKIN - Without rashes. No meningeal or petechial rash. HEAD - NC/AT. EYES -Sclera anicteric. EARS - No deformities of external structures noted on gross examination bilat erally. No pain elicited with palpation of the tragus bilaterally. NOSE - Midline and without cyanosis. No epistaxis or purulent drainage noted. MOUTH/OROPHARYNX - Without perioral cyanosis. NECK - Neck with FROM. No nuchal rigidity. LUNGS - Chest wall symmetric without accessory muscle use, intercostals retractions, or central cyanosis. Normal vesicular breath sounds CTA B/L. No wheezes, rales, or rhonchi appreciated. CARDIAC - RRR with S1/S2. No murmur, rubs, or gallops appreciated. ABDOMEN - Abdominal contour normal without pulsations or visible masses. BS normoactive all four quadrants. No tenderness, palpable masses, hepatosplenomegaly, or ascites noted. EXTREMITIES - No clubbing or peripheral cyanosis. +5/5 strength noted in UE/LE bilaterally. NEUROLOGIC - Cranial nerves II through XII grossly intact. Sensory intact to light touch throughout. PSYCH - A&Ox3 and cooperates fully with examiner. Pt is very pleasant and interacts well with examiner. Course Administered Medications Hydromorphone HCl (Hydromorphone Inj 0.5 Mg/0.5 Ml Syr) 0.5 mg IV Q30M PRN PRN Reason: Pain Stop: 12/17/20 14:26 Last Admin: 12/03/20 14:41 Dose: 0.5 mg Documented by: [id number] Sodium Chloride (Nss 1000ml) 1,000 mls @ 200 mls/hr IV .Q5H HAM Stop: 12/04/20 00:26 Last Admin: 12/03/20 14:49 Dose: 200 mls/hr Documented by: [id number] Discontinued Medications Hydromorphone HCl (Hydromorphone Inj 0.5 Mg/0.5 Ml Syr) 0.5 mg IV NOW STA Stop: 12/03/20 09:35 Last Admin: 12/03/20 09:39 Dose: 0.5 mg Documented by: [id number] Hydromorphone HCl (Hydromorphone Inj 0.5 Mg/0.5 Ml Syr) 0.5 mg IV NOW STA Stop: 12/03/20 11:24 Last Admin: 12/03/20 11:27 Dose: 0.5 mg Documented by: [id number] Sodium Chloride (Nss 1000ml) 1,000 mls @ 999 mls/hr IV .Q1H1M HAM Stop: 12/03/20 09:00 Last Infusion: 12/03/20 09:11 Dose: 0 mls/hr Documented by: [id number] Admin: 12/03/20 08:06 Dose: 999 mls/hr Documented by: [id number] Sodium Chloride (Nss 1000ml) 1,000 mls @ 999 mls/hr IV .Q1H1M ONE Stop: 12/03/20 12:47 Last Infusion: 12/03/20 13:24 Dose: 0 mls/hr Documented by: [id number] Admin: 12/03/20 12:22 Dose: 999 mls/hr Documented by: [id number] Sodium Chloride (Nss 1000ml) 1,000 mls @ 150 mls/hr IV .Q6H40M HAM Stop: 12/04/20 10:26 Last Admin: 12/03/20 14:49 Dose: Not Given Documented by: [id number] Ketorolac Tromethamine (Ketorolac Tromethamine 15 Mg/Ml Vial) 15 mg IV NOW STA Stop: 12/03/20 07:56 Last Admin: 12/03/20 08:06 Dose: 15 mg Documented by: [id number] Ketorolac Tromethamine (Ketorolac Tromethamine 15 Mg/Ml Vial) Confirm Administered Dose 15 mg .ROUTE .STK-MED ONE Stop: 12/03/20 13:48 Last Admin: 12/03/20 13:49 Dose: 15 mg Documented by: [id number] Morphine Sulfate (Morphine Sulfate 4 Mg/Ml 1 Ml Carp\\Vial) 4 mg IV NOW STA Stop: 12/03/20 07:56 Last Admin: 12/03/20 08:06 Dose: 4 mg Documented by: [id number] Morphine Sulfate (Morphine Sulfate 4 Mg/Ml 1 Ml Carp\\Vial) 4 mg IV NOW STA Stop: 12/03/20 08:45 Last Admin: 12/03/20 08:48 Dose: 4 mg Documented by: [id number] Ondansetron HCl (Ondansetron Inj 2 Mg/Ml 2 Ml Vial) 4 mg IV NOW STA Stop: 12/03/20 07:56 Last Admin: 12/03/20 08:06 Dose: 4 mg Documented by: [id number] Ondansetron HCl (Ondansetron Inj 2 Mg/Ml 2 Ml Vial) 4 mg IV NOW STA Stop: 12/03/20 09:35 Last Admin: 12/03/20 09:39 Dose: 4 mg Documented by: [id number] Medical Decision Making Laboratory Data Result diagrams: 12/03/20 07:54 12/03/20 07:54 Lab Results 12/03/20 12/03/20 12/03/20 Range/Units 07:54 07:54 08:02 WBC 8.07 (4.8-10.8) K/uL RBC 4.75 (4.2-5.4) M/uL Hgb 14.1 (12.0-16.0) g/dL Hct 41.0 (37-47) % MCV 86.3 (80-100) fL MCH 29.7 (25-34) pg MCHC 34.4 (32-36) g/dL RDW Std Deviation 40.3 (36.4-46.3) fL RDW Coeff of Baldo 12.7 (11.5-14.5) % Plt Count 257 (130-400) K/uL MPV 10.3 (7.4-10.4) fL Immature Gran % (Auto) 0.4 % Neut % (Auto) 63.2 % Lymph % (Auto) 24.8 % Oliver % (Auto) 10.5 % Eos % (Auto) 0.9 % Baso % (Auto) 0.2 % Neut # (Auto) 5.10 (1.4-6.5) K/uL Lymph # (Auto) 2.00 (1.2-3.4) K/uL Oliver # (Auto) 0.85 H (0.11-0.59) K/uL Eos # (Auto) 0.07 (0-0.5) K/uL Baso # (Auto) 0.02 (0-0.2) K/uL Immature Gran # (Auto) 0.03 H (0.00-0.02) K/uL Sodium 140 (136-145) mmol/L Potassium 4.2 (3.5-5.1) mmol/L Chloride 109 H (98-107) mmol/L Carbon Dioxide 22 (21-32) mmol/L Anion Gap 9.0 (3-11) BUN 10 (7-18) mg/dl Creatinine 0.81 (0.6-1.2) mg/dl Est Cr Clr Drug Dosing 108.4 ml/min Est GFR ( Amer) 116.2 Est GFR (Non-Af Amer) 100.2 BUN/Creatinine Ratio 12.0 (10-20) Glucose 93 (70-99) mg/dl Calcium 9.6 (8.5-10.1) mg/dl Total Bilirubin 0.5 (0.2-1) mg/dl AST 10 L (15-37) U/L ALT 22 (12-78) U/L Alkaline Phosphatase 76 (45-117) U/L Total Protein 8.0 (6.4-8.2) gm/dl Albumin 3.8 (3.4-5.0) gm/dl Globulin 4.2 H (2.5-4.0) gm/dl Albumin/Globulin Ratio 0.9 (0.9-2) Urine Color Yellow Urine Appearance Clear (Clear) Urine pH 7.5 (4.5-7.5) Ur Specific [place] 1.020 (1.000-1.030) Urine Protein Negative (Negative) Urine Glucose (UA) Negative (Negative) Urine Ketones Negative (Negative) Urine Blood 3+ H (Negative) Urine Nitrite Negative (Negative) Urine Bilirubin Negative (Negative) Urine Urobilinogen Negative (Negative) Ur Leukocyte Esterase 1+ H (Negative) Urine WBC (Auto) 10-30 H (0-5) /hpf Urine RBC (Auto) >30 H (0-4) /hpf U Hyaline Cast (Auto) 5-10 H (0-5) /lpf U Epithel Cells (Auto) >30 H (0-5) /lpf Urine Bacteria (Auto) Negative (Negative) Urine Yeast Not Reportable POC Ur Test (NEG) COVID-19 Eval Order SARS-CoV-2, RNA, NAAT (NEGATIVE) 12/03/20 12/03/20 12/03/20 Range/Units 08:23 11:35 11:35 WBC (4.8-10.8) K/uL RBC (4.2-5.4) M/uL Hgb (12.0-16.0) g/dL Hct (37-47) % MCV (80-100) fL MCH (25-34) pg MCHC (32-36) g/dL RDW Std Deviation (36.4-46.3) fL RDW Coeff of Baldo (11.5-14.5) % Plt Count (130-400) K/uL MPV (7.4-10.4) fL Immature Gran % (Auto) % Neut % (Auto) % Lymph % (Auto) % Oliver % (Auto) % Eos % (Auto) % Baso % (Auto) % Neut # (Auto) (1.4-6.5) K/uL Lymph # (Auto) (1.2-3.4) K/uL Oliver # (Auto) (0.11-0.59) K/uL Eos # (Auto) (0-0.5) K/uL Baso # (Auto) (0-0.2) K/uL Immature Gran # (Auto) (0.00-0.02) K/uL Sodium (136-145) mmol/L Potassium (3.5-5.1) mmol/L Chloride (98-107) mmol/L Carbon Dioxide (21-32) mmol/L Anion Gap (3-11) BUN (7-18) mg/dl Creatinine (0.6-1.2) mg/dl Est Cr Clr Drug Dosing ml/min Est GFR ( Amer) Est GFR (Non-Af Amer) BUN/Creatinine Ratio (10-20) Glucose (70-99) mg/dl Calcium (8.5-10.1) mg/dl Total Bilirubin (0.2-1) mg/dl AST (15-37) U/L ALT (12-78) U/L Alkaline Phosphatase (45-117) U/L Total Protein (6.4-8.2) gm/dl Albumin (3.4-5.0) gm/dl Globulin (2.5-4.0) gm/dl Albumin/Globulin Ratio (0.9-2) Urine Color Urine Appearance (Clear) Urine pH (4.5-7.5) Ur Specific [place] (1.000-1.030) Urine Protein (Negative) Urine Glucose (UA) (Negative) Urine Ketones (Negative) Urine Blood (Negative) Urine Nitrite (Negative) Urine Bilirubin (Negative) Urine Urobilinogen (Negative) Ur Leukocyte Esterase (Negative) Urine WBC (Auto) (0-5) /hpf Urine RBC (Auto) (0-4) /hpf U Hyaline Cast (Auto) (0-5) /lpf U Epithel Cells (Auto) (0-5) /lpf Urine Bacteria (Auto) (Negative) Urine Yeast POC Ur Test NEG (NEG) COVID-19 Eval Order Covid19 IDNow [facility] SARS-CoV-2, RNA, NAAT NEGATIVE (NEGATIVE) Imaging Data Radiologist's Impression: XR KUB/Abdomen 1 view CLINICAL HISTORY: L groin/flank pain. Recent stone dx COMPARISON STUDY: 09/01/2020 FINDINGS: There is no pathologic bowel dilatation. The renal shadows are largely obscured by overlying bowel gas and fecal material. There is a 3 mm left pelvic basin calcification. Given history of left flank pain, this could represent a distal left ureteral calculus. No definite renal calculi are visualized IMPRESSION: 1. Nonobstructive bowel gas pattern 2. 3 mm left pelvic basin calcification. A distal left ureteral calculus at the considered. ACT 112: Negative or not required by law. Electronically signed by: Yaron Chase M.D. 12/03/2020 8:13 AM RENAL ULTRASOUND CLINICAL HISTORY: L groin/flank pain. Recent stone dx COMPARISON STUDY: CT of the abdomen and pelvis November 25, 2020. KUB December 03, 2020. TECHNIQUE: Sonography of the kidneys and the urinary bladder was performed. FINDINGS: The right kidney measures 11.3 cm in maximal dimension and the left measures 13.2 cm. There is no hydronephrosis. Note is made of a 3 mm calculus within the lower pole of the right kidney. There is a 4 mm calculus within lower pole of the left kidney. Bladder suboptimally assessed given underdistention. Neither ureteral jet was identified. IMPRESSION: 1. No hydronephrosis. 2. Small bilateral renal calculi. ACT 112: Negative or not required by law. Electronically signed by: Nader Pérez M.D. 12/03/2020 8:49 AM MDM Narrative Patient was seen and evaluated as above in room A10. Review was performed of nursing notes and vital signs. I did review pertinent previous visits and patient history. After obtaining a thorough history and physical examination the above work up was performed. Patient presents to us today status post recent diagnosis of kidney stone on 11/25/2020. This was described as being 4 mm in size in the distal left ureteral region. Patient after discharge on the was doing quite well up until this morning around 7 AM she notes abrupt onset of similar pain but now it is worse. Location of pain is the same. Clinically she appears to be in pain but overall nontoxic. Vital signs are stable. Options of care were discussed with the patient. IV access was established. Labs were drawn. Did not want to repeat CT over concern of radiation exposure therefore began with less invasive studies to include KUB and renal ultrasound. While here she was medicated with morphine, Zofran, Toradol and fluids. She has had these before all on her previous visit. Laboratory studies reveal no leukocytosis or anemia. No emergent metabolic disturbance. No evidence of kidney failure. Urinalysis is likely a contaminated sample without any overt evidence of infection. UPT negative. Patient has required multiple rounds of IV analgesics here and benefit versus risk of inpatient management versus outpatient management discussed. Through shared decision making we will proceed with inpatient management to hopefully achieve better pain control. I discussed this also with on-call urology and spoke to Erin Wu. She also spoke with Dr. Greene. At this time patient will be admitted to the medicine service with urology consult. Patient happy with plan of care. Please refer to further documentation regarding her stay. Do believe this is the best course of action noting that she is required multiple rounds of pain medicine here. GCS: 15 In the evaluation and treatment of this patient the following differential diagnosis entertained: Fracture, dislocation, subluxation, cauda equina syndrome, AAA, diverticulitis, appendicitis, torsion, osteomyelitis, piriformis syndrome, strain, sprain, kidney stone, among others. Impression & Plan Ureteral calculus, left, Abdominal pain, LLQ Discharge Plan Visit Data Chief Complaint: Kidney Stone Stated Complaint: KIDNEY STONE ED Provider: Tj Mata ED Midlevel Provider: David Schwarz Discharge Problem: Ureteral calculus, left, Abdominal pain, LLQ Patient Disposition: Admitted As Inpatient Condition: Good Discharge Instructions Interventions: ED Discharge Assessment Last Done: 12/03/20 13:41
[2020-12-03] MEDS ORDERED: SODIUM CHLORIDE 0.9% 1000ML 1,000 ML IV SCH ×2 (08:00→14:27)
[2020-12-03 08:05] LABS: Basophils # (auto) 0.02 K/uL (0-0.2); Basophils % (auto) 0.2 %; Eosinophils # (auto) 0.07 K/uL (0-0.5); Eosinophils % (auto) 0.9 %; Hemoglobin 14.1 g/dL (12.0-16.0); Immature Granulocytes # (auto) 0.03 K/uL (0.00-0.02); Immature Granulocytes % (auto) 0.4 %; Lymphocytes % (auto) 24.8 %; Mean Corpuscular Hemoglobin 29.7 pg (25-34); Mean Corpuscular Hgb Conc 34.4 g/dL (32-36); Mean Corpuscular Volume 86.3 fL (80-100); Mean Platelet Volume 10.3 fL (7.4-10.4); Monocytes # (auto) 0.85 K/uL (0.11-0.59); Monocytes % (auto) 10.5 %; Neutrophils % (auto) 63.2 %; Platelet Count 257 K/uL (130-400); RDW Coefficient of Variation 12.7 % (11.5-14.5); RDW Standard Deviation 40.3 fL (36.4-46.3); Red Blood Count 4.75 M/uL (4.2-5.4); White Blood Count 8.07 K/uL (4.8-10.8)
--- NOTE | 2020-12-03 08:15 | XRay Report ---
XR KUB/Abdomen 1 view CLINICAL HISTORY: L groin/flank pain. Recent stone dx COMPARISON STUDY: 09/01/2020 FINDINGS: There is no pathologic bowel dilatation. The renal shadows are largely obscured by overlyin g bowel gas and fecal material. There is a 3 mm left pelvic basin calcification. Given history of lef t flank pain, this could represent a distal left ureteral calculus. No definite renal calculi are vis ualized IMPRESSION: 1. Nonobstructive bowel gas pattern 2. 3 mm left pelvic basin calcification. A distal left ureteral calculus at the considered. ACT 112: Negative or not required by law. Electronically signed by: Yaron Chase M.D. 12/03/2020 8:13 AM
[2020-12-03 08:23] LABS: Appearance Urine Clear (Clear); Bacteria Urine Automated Negative (Negative); Bilirubin Urine Negative (Negative); Blood Urine 3+ (Negative); Color Urine Yellow; Epithelial Cell Urine Auto >30 /lpf (0-5); Glucose Urine UA Negative (Negative); Ketones Urine Negative (Negative); Leukocyte Esterase Urine 1+ (Negative); Nitrite Urine Negative (Negative); Protein Urine Negative (Negative); RBC Urine Automated >30 /hpf (0-4); Urobilinogen Urine Negative (Negative); pH Urine 7.5 (4.5-7.5)
[2020-12-03 08:29] LABS: Albumin Level 3.8 gm/dl (3.4-5.0); Calcium 9.6 mg/dl (8.5-10.1); Creatinine Clr Calc Pharmacy 108.4 ml/min; Est GFR (African American) 116.2; Est GFR (Non-African American) 100.2; Potassium 4.2 mmol/L (3.5-5.1)
[2020-12-03 08:32] LABS: Albumin Globulin Ratio 0.9 (0.9-2); Bilirubin,Total 0.5 mg/dl (0.2-1); Globulin 4.2 gm/dl (2.5-4.0)
--- NOTE | 2020-12-03 08:50 | Ultrasound Report ---
RENAL ULTRASOUND CLINICAL HISTORY: L groin/flank pain. Recent stone dx COMPARISON STUDY: CT of the abdomen and pelvis November 25, 2020. KUB December 03, 2020. TECHNIQUE: Sonography of the kidneys and the urinary bladder was performed. FINDINGS: The right kidney measures 11.3 cm in maximal dimension and the left measures 13.2 cm. There is no hydronephrosis. Note is made of a 3 mm calculus within the lower pole of the right kidney. The re is a 4 mm calculus within lower pole of the left kidney. Bladder suboptimally assessed given under distention. Neither ureteral jet was identified. IMPRESSION: 1. No hydronephrosis. 2. Small bilateral renal calculi. ACT 112: Negative or not required by law. Electronically signed by: Nader Pérez M.D. 12/03/2020 8:49 AM
[2020-12-03] MEDS ORDERED: HYDROmorphone INJ 0.5 MG/0.5 ML SYR IV STA ×2 (09:34→11:23)
--- NOTE | 2020-12-03 10:41 | History & Physical Report ---
Date of Service December 03, 2020 Assessment & Plan (1) Ureteral calculus, left: Damaris is a healthy 25-year-old female with a history of Hyperthyroidism, GERD, Depression, Anxiety, Migraine Headaches, and Nephrolithiasis who presents acutely to [facility] ER today with a Left Ureteral Stone and Ureteral Colic. Her complaints include sudden onset severe left flank and groin pain which is colicky and sharp at times. It began this morning at 0700. The pain radiates into her left groin and into her vagina. She has associated nausea, vomiting, and diaphoresis. So far the patient has been given IV fluids, IV morphine, IV Toradol, and IV Zofran. Her pain is well controlled at this time. She continues to break out in cold sweats. She is not currently nauseated. Patient offers no other complaints. She has not had any fevers, chills, urinary frequency, urinary urgency, or any dysuria. She denies being . The patient was seen in the ER on 11/25/2020 complaining of flank pain and she was diagnosed with a 4 mm distal ureteral stone. She has been doing well since that time and has been taking Tamsulosin and using Zofran on an "as needed" basis. She has not knowingly passed any stones. Renal Ultrasound shows small stones in bilateral kidneys, but no evidence of hydronephrosis. KUB show a left pelvic calcification, possible ureteral stone. -- Admit to Med-Surg on observation status. -- Continue IV NSS. -- Continue Tamsulosin 0.4 mg daily. -- Dilaudid, Toradol, and Acetaminophen for pain control. -- IV Zofran as needed for nausea/vomiting. -- Consult [facility] [place] Urology, Dr. Rosenberg. (2) Bilateral nephrolithiasis: -- As outlined above. -- Strain all urines. -- Recommend sending stone off for analysis if it is captured. History of Present Illness Chief Complaint: -- Kidney Stone. Primary Care Provider: Luisa Roldan MD Damaris is a healthy 25-year-old female with a history of Hyperthyroidism, GERD, Depression, Anxiety, Migraine Headaches, and Nephrolithiasis who presents acutely to [facility] ER today complaining of sudden onset severe left flank and groin pain which is colicky and sharp at times. It began at 0700 today. The pain radiates into her left groin and into her vagina. She has associated nausea, vomiting, and diaphoresis. Patient has been given IV fluids, IV morphine, IV Toradol, and IV Zofran. Her pain is reasonably well controlled at this time. She continues to break out in cold sweats. She is not currently nauseated. Patient offers no other complaints. She has not had any fevers, chills, urinary frequency, urinary urgency, or any dysuria. Patient has not had any cough, sputum production, loss of sense of taste, loss of sense of smell, or any symptoms concerning for coronavirus. She denies being . The patient was seen in the ER on 11/25/2020 complaining of flank pain and she was diagnosed with a 4 mm distal ureteral stone. She has been doing well since that time and has been taking Tamsulosin and using Zofran on an "as needed" basis. She has not knowingly passed any stones. Patient also has a right-sided kidney stone that was documented in August 2020 on imaging. Allergies Allergy/AdvReac Type Severity Reaction Status Date / Time No Known Allergies Allergy Verified 12/03/20 08:07 Home Medications Medication Instructions Recorded Confirmed Type ondansetron 4 mg PO Q8H PRN #30 tab 11/25/20 12/03/20 Rx tamsulosin [Flomax] 0.4 mg PO DAILY #14 cap 11/25/20 12/03/20 Rx Past Med/Surg History Medical History Anxiety Depression Dysuria GERD (gastroesophageal reflux disease) On occasions Hyperthyroidism Not on any medication LLQ abdominal pain Low TSH level Migraine Ovarian cyst Palpitations Pyelonephritis Vitamin D deficiency Surgical History Nasal fracture Repair of nasal fracture Family History Mother Breast cancer Other Cancer Hypertension Kidney stones Denies family history of Ovarian cancer Prostate cancer Heart disease Myocardial infarction Colorectal cancer Social History Smoking Status: Never smoker Hx Alcohol Use: Yes Alcohol type: beer and wine Hx Substance Use: No Preferred Language: Occitan Communication Ability: Effective Visual Impairment: No Limitations Hearing Ability: Normal 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 She appears comfortable at the moment. HEENT: Head is atraumatic, normocephalic. Sclerae anicteric. EOM's intact. Facies symmetric. No perioral cyanosis. NECK: No JVD. JVP is not elevated. Carotid upstrokes are + 2 bilaterally. CHEST/LUNGS: Clear to auscultation throughout all lung good. No wheezes, rales, or crackles. CVS: S1 and S2 are regular without obvious murmurs, gallops, or rubs. No abdominal aortic or renal bruits. ABDOMINAL EXAM: Bowel sounds are present. No masses or organomegaly. No focal tenderness. No guarding, rigidity, or rebound tenderness. EXTREMITIES: No clubbing or cyanosis. No edema. Intact posterior tibial and radial pulses bilaterally. NEUROLOGIC EXAM: Patient is awake, alert, and oriented. Pleasant and cooperative. Answers questions appropriately. Speech is clear. Normal movement in all 4 extremities. Gait pattern is unremarkable. Results & Data Results & Data ([facility]) Vital Signs (Past 12 Hours) Vital Signs Temp Pulse Pulse Resp BP BP Pulse Ox 12/03/20 09:40 71 20 127/67 98 12/03/20 07:42 36.4 C L 116 H 24 148/68 H 97 Laboratory Results Laboratory Results - last 24 hr 12/03/20 12/03/20 12/03/20 07:54 07:54 08:02 WBC 8.07 RBC 4.75 Hgb 14.1 Hct 41.0 MCV 86.3 MCH 29.7 MCHC 34.4 RDW Std Deviation 40.3 RDW Coeff of Baldo 12.7 Plt Count 257 MPV 10.3 Immature Gran % (Auto) 0.4 Neut % (Auto) 63.2 Lymph % (Auto) 24.8 Caldwell % (Auto) 10.5 Eos % (Auto) 0.9 Baso % (Auto) 0.2 Neut # (Auto) 5.10 Lymph # (Auto) 2.00 Caldwell # (Auto) 0.85 H Eos # (Auto) 0.07 Baso # (Auto) 0.02 Immature Gran # (Auto) 0.03 H Sodium 140 Potassium 4.2 Chloride 109 H Carbon Dioxide 22 Anion Gap 9.0 BUN 10 Creatinine 0.81 Est Cr Clr Drug Dosing 108.4 Est GFR ( Amer) 116.2 Est GFR (Non-Af Amer) 100.2 BUN/Creatinine Ratio 12.0 Glucose 93 Calcium 9.6 Total Bilirubin 0.5 AST 10 L ALT 22 Alkaline Phosphatase 76 Total Protein 8.0 Albumin 3.8 Globulin 4.2 H Albumin/Globulin Ratio 0.9 Urine Color Yellow Urine Appearance Clear Urine pH 7.5 Ur Specific [place]ine 1.020 Urine Protein Negative Urine Glucose (UA) Negative Urine Ketones Negative Urine Blood 3+ H Urine Nitrite Negative Urine Bilirubin Negative Urine Urobilinogen Negative Ur Leukocyte Esterase 1+ H Urine WBC (Auto) 10-30 H Urine RBC (Auto) >30 H U Hyaline Cast (Auto) 5-10 H U Epithel Cells (Auto) >30 H Urine Bacteria (Auto) Negative Urine Yeast Not Reportable POC Ur Test 12/03/20 08:23 WBC RBC Hgb Hct MCV MCH MCHC RDW Std Deviation RDW Coeff of Baldo Plt Count MPV Immature Gran % (Auto) Neut % (Auto) Lymph % (Auto) Caldwell % (Auto) Eos % (Auto) Baso % (Auto) Neut # (Auto) Lymph # (Auto) Caldwell # (Auto) Eos # (Auto) Baso # (Auto) Immature Gran # (Auto) Sodium Potassium Chloride Carbon Dioxide Anion Gap BUN Creatinine Est Cr Clr Drug Dosing Est GFR ( Amer) Est GFR (Non-Af Amer) BUN/Creatinine Ratio Glucose Calcium Total Bilirubin AST ALT Alkaline Phosphatase Total Protein Albumin Globulin Albumin/Globulin Ratio Urine Color Urine Appearance Urine pH Ur Specific [place] Urine Protein Urine Glucose (UA) Urine Ketones Urine Blood Urine Nitrite Urine Bilirubin Urine Urobilinogen Ur Leukocyte Esterase Urine WBC (Auto) Urine RBC (Auto) U Hyaline Cast (Auto) U Epithel Cells (Auto) Urine Bacteria (Auto) Urine Yeast POC Ur Test NEG Diagnostic Findings KUB 12/03/2020: There is no pathologic bowel dilatation. The renal shadows are largely obscured by overlying bowel gas and fecal material. There is a 3 mm left pelvic basin calcification. Given history of left flank pain, this could represent a distal left ureteral calculus. No definite renal calculi are visualized IMPRESSION: 1. Nonobstructive bowel gas pattern 2. 3 mm left pelvic basin calcification. A distal left ureteral calculus is considered. RENAL ULTRASOUND 12/03/2020: 1. No hydronephrosis. 2. Small bilateral renal calculi. Code Status & VTE Plan Code Status Full Code VTE Prophylaxis Plan VTE Prophylaxis will be ordered: Yes Supervising Physician Co-Signing Physician Notes I personally saw and examined the patient. I verified all lowry points and agree with LION Do with the following exceptions and/or additions: 25-year-old female with recurrent kidney stones with current known obstructing distal left 4 mm ureterolithiasis diagnosed initially 8 days ago. 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 No fevers, chills or dysuria to suggest infection at this time. O/E left lower quadrant abdominal tenderness without guarding or rebound, bowel sounds normal. Heart sounds RRR, no murmurs. Chest CTAB. A/P Left ureterolithiasis - agree with treatment above with IV fluids, tamsulosin, Dilaudid/Toradol for pain relief. Strain all urine with stone analysis on filtrate. Consult urology. PG Care Time/CCT Total # of Minutes Spent Total Time Spent with Patient: Total time spent is greater than 50% in coordination of care (as documented) at patient's floor/unit and/or counseling patient:40 Coding Level of Care Code 43656 OBS Care - Level 2 Diagnoses Ureteral calculus, left N20.1 Bilateral nephrolithiasis N20.0 Time Spent (min) 60
[2020-12-03] MEDS ORDERED: SODIUM CHLORIDE 0.9% 1000ML 1,000 ML IV ONE (11:47)
--- NOTE | 2020-12-03 12:14 | Urology Consultation ---
Date of Consultation December 03, 2020 Assessment & Plan (1) Bilateral nephrolithiasis: (2) Ureteral calculus, left: 25 yo F admitted for left renal colic secondary to 4 mm distal left ureteral stone. - Afebrile, VSS, creatinine and WBC within normal limits. - UC&S pending - follow culture - Discussed options for stone management including trial of passage vs surgical intervention with left stent placement - She elects trial of passage overnight - Okay to give diet today and make NPO at midnight to reassess in AM - Recommend continue hydration, Tamsulosin, prn antiemetics, and prn analgesia - Strain all urine - Recommend bladder scan prn, order placed - Please consult our service urgently if patient develops fever >101F, intractable pain or nausea, as this will necessitate urgent surgical intervention. Thank you for the consultation and we will continue to monitor closely with primary service. Supervising Physician Co-Signing Physician Notes Pt seen Agree with above History of Present Illness Reason for Consultation: Left ureteral stone Requesting Physician: Crhis Do PA-C History of Present Illness 25 yo F admitted for left renal colic secondary to 4 mm distal left ureteral stone. PMHx of nephrolithiasis, MARCOS, hyperthyroidism, depression, migraine, vitamin D deficiency. Patient presented to [facility] ED on 11/25/20 with left flank and groin pain. CT A/P showed 4 mm distal left ureteral stone, minimal dilatation of the left renal collecting system. Bilateral nephrolithiasis. She was discharged to home with max expulsion therapy and pain management. Patient returned to [facility] ED on 12/03/20 with acute onset of left flank pain radiating to groin and vagina with associated nausea and vomiting. Afebrile on arrival. Lab work: creatinine 0.81, WBC 8.07, Hgb 14.1. UA +1 leukocytes, 10-30 WBCs, >30 RBCs, >30 Epithelials, negative for nitrates and bacteria. Urine culture collected and pending. Negative test. COVID test pending. KUB showed 3 mm distal left ureteral stone. KISHORE showed no hydronephrosis and small b ilateral renal calculi. She was treated with IV Fluids, Hydromorphone, Ketorolac, Morphine and Zofran in ED. She was admitted to hospitalist service for further management. Our service is consulted for left ureteral stone. Patient seen and examined in ED. Appears comfortable at present. Reports intermittent left flank, groin and vaginal discomfort. Her pain is currently well controlled. No nausea or vomiting at present. No dysuria or hematuria. Reports urinary frequency and occasional feeling of hesitancy. LBM yesterday. No fever or chills. No prior urological evaluations. History of nephrolithiasis. No prior surgical intervention for stones. Has not passed stones spontaneously in the past. Family history of stones - Father. No family hx of prostate, bladder or kidney cancer. No additional concerns today. Allergies Allergy/AdvReac Type Severity Reaction Status Date / Time No Known Allergies Allergy Verified 12/03/20 08:07 Home Medications Medication Instructions Recorded Confirmed Type ondansetron 4 mg PO Q8H PRN #30 tab 11/25/20 12/03/20 Rx tamsulosin [Flomax] 0.4 mg PO DAILY #14 cap 11/25/20 12/03/20 Rx Patient History Medical History Anxiety Depression Dysuria GERD (gastroesophageal reflux disease) On occasions Hyperthyroidism Not on any medication LLQ abdominal pain Low TSH level Migraine Ovarian cyst Palpitations Pyelonephritis Vitamin D deficiency Surgical History Nasal fracture Repair of nasal fracture Family History Mother Breast cancer Other Cancer Hypertension Kidney stones Denies family history of Ovarian cancer Prostate cancer Heart disease Myocardial infarction Colorectal cancer Social History Smoking Status: Never smoker Hx Alcohol Use: Yes Alcohol type: beer and wine Hx Substance Use: No Preferred Language: Lao Communication Ability: Effective Visual Impairment: No Limitations Hearing Ability: Normal 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 Beliefs That Will Affect Care: None marital status: Single Current Living Situation: Parent current occupational status: employed Other Information That Helps Us Care for You: No Feels Safe at Home: Yes Childhood Exposure to Second-Hand Smoke: No Physical Activity Frequency: Daily Seatbelt Use: always Sunscreen Use: Yes Assistive Devices: None Review of Systems Constitutional: as per Subjective / HPI Eyes: no problem reported Ear, Nose, Mouth, Throat: no problem reported Respiratory: no problem reported Cardiovascular: no problem reported Gastrointestinal: as per Subjective / HPI Genitourinary: as per Subjective / HPI Integumentary: no problem reported Neurologic: no problem reported Psychiatric: + anxiety Physical Exam Constitutional: well developed and well nourished; no acute distress and not ill appearing Nontoxic appearance Eyes: no scleral abnormality Respiratory: normal respiratory effort and able to speak in complete sentences; no respiratory distress and no labored breathing Cardiovascular: Extremities: no pedal edema Gastrointestinal (Abdomen): Inspection/Auscultation: abdomen normal to inspection; abdomen not distended Musculoskeletal: Head/Neck/Chest: normocephalic and head atraumatic Extremities: extremities normal to inspection Skin: no rashes, warm and dry Neurologic: moves all extremities and awake Psychiatric: A+Ox3, euthymic affect Results & Data ([facility]) Vital Signs (Past 12 Hours) Vital Signs Temp Pulse Pulse Resp BP BP Pulse Ox 12/03/20 09:40 71 20 127/67 98 12/03/20 07:42 36.4 C L 116 H 24 148/[address] A/P 11/25/20 IMPRESSION: 1. No evidence of bowel obstruction. No evidence of free air 2. Normal appendix. No evidence of acute diverticulitis 3. Bilateral nephrolithiasis 4. New 4 mm left pelvic basin calcification, suspicious for a distal left ureteral calculus. This results in only minimal dilatation of the left renal collecting system. KUB 12/03/20 IMPRESSION: 1. Nonobstructive bowel gas pattern 2. 3 mm left pelvic basin calcification. A distal left ureteral calculus at the considered. KISHORE 12/03/20 IMPRESSION: 1. No hydronephrosis. 2. Small bilateral renal calculi. PG Care Time/CCT Total # of Minutes Spent Total Time Spent with Patient: Total time spent is greater than 50% in coordination of care (as documented) at patient's floor/unit and/or counseling patient: Coding Level of Care Code 16360 Inpt Consult Level 3 Diagnoses Bilateral nephrolithiasis N20.0 Ureteral calculus, left N20.1
[2020-12-03] MEDS ORDERED: KETOROLAC TROMETHAMINE 15 MG/ML VIAL ONE (13:47)
[2020-12-03] MEDS ORDERED: ALUMINUM/MAGNESIUM SUSP 30 ML UDC PO PRN (14:27)
[2020-12-03] MEDS ORDERED: ONDANSETRON 4 MG OD TAB PO PRN (14:36)
[2020-12-03] MEDS: HYDROmorphone INJ 0.5 MG/0.5 ML SYR IV PRN ×4 (14:41→22:43)
[2020-12-03] MEDS: SODIUM CHLORIDE 0.9% 1000ML 1,000 ML IV SCH ×2 (14:49→20:37)
[2020-12-03] MEDS: ONDANSETRON INJ 2 MG/ML 2 ML VIAL IV PRN (18:28)
[2020-12-03] MEDS: KETOROLAC TROMETHAMINE 15 MG/ML VIAL IV PRN (19:39)
[2020-12-04] MEDS: KETOROLAC TROMETHAMINE 15 MG/ML VIAL IV PRN ×2 (01:40→10:28)
[2020-12-04] MEDS: ONDANSETRON INJ 2 MG/ML 2 ML VIAL IV PRN ×3 (01:40→14:24)
[2020-12-04] MEDS: HYDROmorphone INJ 0.5 MG/0.5 ML SYR IV PRN ×2 (04:38→07:44)
[2020-12-04 06:58] LABS: Basophils # (auto) 0.01 K/uL (0-0.2); Basophils % (auto) 0.2 %; Eosinophils # (auto) 0.06 K/uL (0-0.5); Eosinophils % (auto) 1.2 %; Hematocrit (blood only) 37.9 % (37-47); Hemoglobin 12.6 g/dL (12.0-16.0); Lymphocytes # (auto) 1.99 K/uL (1.2-3.4); Lymphocytes % (auto) 39.3 %; Mean Corpuscular Hemoglobin 29.4 pg (25-34); Mean Corpuscular Hgb Conc 33.2 g/dL (32-36); Mean Corpuscular Volume 88.6 fL (80-100); Mean Platelet Volume 10.2 fL (7.4-10.4); Monocytes % (auto) 9.9 %; Neutrophils % (auto) 49.4 %; Platelet Count 195 K/uL (130-400); RDW Coefficient of Variation 12.9 % (11.5-14.5); RDW Standard Deviation 41.1 fL (36.4-46.3); Red Blood Count 4.28 M/uL (4.2-5.4); White Blood Count 5.06 K/uL (4.8-10.8)
[2020-12-04 07:27] LABS: Calcium 8.2 mg/dl (8.5-10.1); Creatinine Clr Calc Pharmacy 146.3 ml/min; Est GFR (African American) 145.8; Est GFR (Non-African American) 125.8; Potassium 4.1 mmol/L (3.5-5.1)
[2020-12-04] MEDS: TAMSULOSIN HCL 0.4 MG CAP PO SCH (09:11)
--- NOTE | 2020-12-04 12:34 | Urology Progress Note ---
Date of Service December 04, 2020 Assessment & Plan (1) Ureteral calculus, left: Stone still hasn't passed. Will give it another 24 hours. I have her tentatively scheduled for the OR tomorrow morning. Cysto, left uscope, laser litho, stent. NPO at midnight. IV fluids. Flomax. (2) Abdominal pain, LLQ: Admission and Anticipated Discharge Date Admission Date: December 03, 2020 Subjective Still has not passed the stone. Reports pain on left side, near groin/vaginal area. No hem. No dys. Some increased urge and freq. No fevers. No chills. Occ nausea. Review of Systems Review of Systems: All systems reviewed & are unremarkable except as noted in HPI & below Physical Exam Constitutional: WD/WN, vitals as above Neck: trachea midline, no thyromegaly Respiratory: normal respiratory effort, lungs clear to auscultation Cardiovascular: RRR, no murmur, no edema Gastrointestinal (Abdomen): normal bowel sounds, soft, nontender, no hepatosplenomegaly Skin: no rashes, warm and dry Results & Data ([facility]) Vital Signs (Past 12 Hours) Vital Signs Temp Pulse Resp BP Pulse Ox 12/04/20 07:07 36.6 C 76 20 111/71 99 PG Care Time/CCT Total # of Minutes Spent Total Time Spent with Patient: Total time spent is greater than 50% in coordination of care (as documented) at patient's floor/unit and/or counseling patient: Coding Level of Care Code 08448 Subseq Hosp Care Lvl 2 Diagnoses Ureteral calculus, left N20.1 Abdominal pain, LLQ R10.32
[2020-12-04] MEDS ORDERED: MoRPHine SULFATE 2 MG/ML CARP IV PRN (13:45)
[2020-12-04] MEDS: D5W AND 1/2NSS 1,000 ML IV SCH (14:24)
--- NOTE | 2020-12-04 15:12 | Hospitalist Progress Note ---
Date of Service December 04, 2020 Assessment & Plan (1) Ureteral calculus, left: Renal Ultrasound shows small stones in bilateral kidneys, but no evidence of hydronephrosis. KUB show a left pelvic calcification, possible ureteral stone. . -- Continue IV NSS. -- Continue Tamsulosin 0.4 mg daily. Urology planning to monitor overnight again as pt prefers to avoid OR, however if no progress t/c OR tomorrow AM NPO after midnight (2) Bilateral nephrolithiasis: -- Strain all urines. -- Recommend sending stone off for analysis if it is captured. Admission and Anticipated Discharge Date Admission Date: December 03, 2020 Subjective Pt with ongoing pain. She states that the worst pain is her vagina and it travels up into her L side. She notes that after her first dose of flomax, she felt her pain wrap around from the back to the front of her trunk. She states she feels the dilaudid is causing n/v. She feels she did better with morphine/toradol in the ED. Pt denies fever, SOB, chest pain, c/d, LE pain or swelling. Review of Systems Review of Systems: Pertinent positives and negatives reviewed in HPI--all others negative Physical Exam Constitutional: WD/WN, vitals as above Eyes: normal visual good by confrontation and + anicteric sclerae Neck: normal visual inspection and trachea midline Respiratory: normal respiratory effort, lungs clear to auscultation Cardiovascular: Rate/Rhythm: regular rate and regular rhythm Gastrointestinal (Abdomen): Inspection/Auscultation: abdomen not distended Percussion/Palpation: abdomen soft; abdomen nontender Musculoskeletal: Head/Neck/Chest: normocephalic and head atraumatic negat zoltan for edema, peripheral pulses intact Skin: no rashes, warm and dry Neurologic: awake; not confused Speech / Cognition: normal speech Psychiatric: A+Ox3, euthymic affect Results & Data Results & Data ([facility]) Vital Signs (Past 12 Hours) Vital Signs Temp Pulse Resp BP Pulse Ox 12/04/20 07:07 36.6 C 76 20 111/71 99 PG Care Time/CCT Total # of Minutes Spent Total Time Spent with Patient: Total time spent is greater than 50% in coordination of care (as documented) at patient's floor/unit and/or counseling patient: Coding Level of Care Code 93646 Subseq Hosp Care Lvl 2 Diagnoses Ureteral calculus, left N20.1 Bilateral nephrolithiasis N20.0
[2020-12-04] MEDS: MoRPHine SULFATE 2 MG/ML CARP IV PRN ×2 (15:14→22:18)
[2020-12-04] MEDS ORDERED: PHENAZOPYRIDINE HCL 200 MG TAB PO STA (15:25)
[2020-12-04] MEDS: ACETAMINOPHEN 325 MG TAB PO PRN ×2 (15:52→22:48)
[2020-12-04] MEDS: KETOROLAC 30 MG/ML VIAL IV PRN ×2 (16:37→23:14)
--- NOTE | 2020-12-04 17:36 | Anesthesiology Consultation ---
Date of Service December 04, 2020 Assessment & Plan Chart Review Chart Review: Acceptable Risk for Surgery Consults Requested none ASA ASA2 Proposed Anesthesia Anesthesia Type: General History Surgery Operation Date: 12/05/20 07:30 Proposed Procedures p Cystoscopy, Left Ureteroscopy, Laser Lithotripsy, Stent Insertion - Lamont Ambrose MD Height/Weight Height: 5 ft 4 in Weight: 81 kg Allergies Allergy/AdvReac Type Severity Reaction Status Date / Time No Known Allergies Allergy Verified 12/03/20 08:07 Medications Home Medications Medication Instructions Recorded Confirmed Last Taken ondansetron 4 mg PO Q8H PRN #30 tab 11/25/20 12/03/20 Unknown tamsulosin [Flomax] 0.4 mg PO DAILY #14 cap 11/25/20 12/03/20 Unknown Active Medications Generic Name Dose Route Start Last Admin Trade Name Freq PRN Reason Stop Dose Admin Acetaminophen 650 mg 12/03/20 14:27 12/04/20 22:48 Acetaminophen 325 Mg Tab PO 01/02/21 14:26 650 mg Q4H PRN Administration pain/fever Dextrose/Sodium Chloride 1,000 mls @ 80 mls/hr 12/04/20 12:45 12/05/20 02:53 D5w And 1/2nss IV 01/03/21 12:44 80 mls/hr .[id number] HAM Administration Ketorolac Tromethamine 30 mg 12/04/20 13:45 12/05/20 05:07 Ketorolac 30 Mg/Ml Vial IV 12/08/20 13:44 30 mg Q6H PRN Administration Pain Morphine Sulfate 1 mg 12/04/20 14:45 12/05/20 05:37 Morphine Sulfate 2 Mg/Ml Carp IV 12/18/20 14:44 1 mg Q4HWA PRN Administration Pain Ondansetron HCl 4 mg 12/03/20 14:27 12/05/20 05:07 Ondansetron Inj 2 Mg/Ml 2 Ml Vial IV 01/02/21 14:26 4 mg Q6H PRN Administration Nausea Tamsulosin HCl 0.4 mg 12/04/20 09:00 12/04/20 09:11 Tamsulosin Hcl 0.4 Mg Cap PO 01/03/21 08:59 0.4 mg DAILY HAM Administration NPO Date Last Intake of Fluids: 12/04/20 Time Last Intake of Fluids: 23:45 Date Last Intake of Solids: 12/04/20 Time Last Intake of Solids: 22:30 Past Medical History Medical History Anxiety Depression Dysuria GERD (gastroesophageal reflux disease) On occasions Hyperthyroidism Not on any medication LLQ abdominal pain Low TSH level Migraine Ovarian cyst Palpitations Pyelonephritis Vitamin D deficiency Exercise / Class Metabolic Activity II 4-5 Yardwork/Stairs/Walk up hill Past Family History Family History Mother Breast cancer Other Cancer Hypertension Kidney stones Denies family history of Ovarian cancer Prostate cancer Heart disease Myocardial infarction Colorectal cancer Past Surgical History Surgical History Nasal fracture Repair of nasal fracture Past Anesthesia History No Hx of Anesthesia Complications and No Family Hx of Anesthesia Complications History of PONV No Hx of PONV and No Hx of Motion Sickness Social History Smoking Status: Never smoker Hx Alcohol Use: Yes Alcohol type: beer and wine alcohol intake frequency: a few times a month Hx Substance Use: No Physical Exam Vital Signs Last Vital Signs Temp 36.9 C 12/04/20 22:28 Pulse 79 12/04/20 22:28 Resp 18 12/04/20 22:28 BP 146/72 H 12/04/20 22:28 Pulse Ox 99 12/04/20 22:28 ENMT Mouth: no TMJ abnormality Thyromental Distance: > or= 3.5 Finger Breadths Mallampati Class: II Neck normal visual inspection and trachea midline; neck extension not limited Respiratory normal respiratory effort Auscultation: lungs clear to auscultation bilaterally Cardiovascular Rate/Rhythm: regular rate and regular rhythm Heart Sounds: no murmur Musculoskeletal Spine: normal cervical ROM Extremities: full ROM of extremities Neurologic moves all extremities Psychiatric Orientation: alert and oriented x 3 Testing Laboratory Results 12/05/20 05:55 12/05/20 05:55 Urine Color Yellow 12/03/20 08:02 Urine Appearance Clear (Clear) 12/03/20 08:02 Urine pH 7.5 (4.5-7.5) 12/03/20 08:02 Ur Specific [place] 1.020 (1.000-1.030) 12/03/20 08:02 Urine Protein Negative (Negative) 12/03/20 08:02 Urine Glucose (UA) Negative (Negative) 12/03/20 08:02 Urine Ketones Negative (Negative) 12/03/20 08:02 Urine Nitrite Negative (Negative) 12/03/20 08:02 Ur Leukocyte Esterase 1+ (Negative) H 12/03/20 08:02 Urine WBC (Auto) 10-30 /hpf (0-5) H 12/03/20 08:02 Urine RBC (Auto) >30 /hpf (0-4) H 12/03/20 08:02 U Hyaline Cast (Auto) 5-10 /lpf (0-5) H 12/03/20 08:02 U Epithel Cells (Auto) >30 /lpf (0-5) H 12/03/20 08:02 Urine Bacteria (Auto) Negative (Negative) 12/03/20 08:02 12/03/20 08:02 Urine Culture - Preliminary Urine,Clean Catch Pin-point growth present, reincubating. 12/03/20 08:23 POC Ur Test NEG 12/03/20 COVID neg [place] Chest X-Ray Date: 04/20/20 Findings: + NAD
[2020-12-04] MEDS ORDERED: HYDROmorphone INJ 0.5 MG/0.5 ML SYR IV STA ×2 (18:54→22:40)
[2020-12-04] MEDS ORDERED: HYDROmorphone INJ 0.5 MG/0.5 ML SYR ONE (22:46)
[2020-12-05] MEDS: D5W AND 1/2NSS 1,000 ML IV SCH ×3 (02:53→22:39)
[2020-12-05] MEDS: KETOROLAC 30 MG/ML VIAL IV PRN ×3 (05:07→20:24)
[2020-12-05] MEDS: ONDANSETRON INJ 2 MG/ML 2 ML VIAL IV PRN ×3 (05:07→20:24)
[2020-12-05] MEDS: MoRPHine SULFATE 2 MG/ML CARP IV PRN ×4 (05:37→19:57)
[2020-12-05 06:25] LABS: Basophils # (auto) 0.02 K/uL (0-0.2); Basophils % (auto) 0.4 %; Eosinophils % (auto) 1.9 %; Hematocrit (blood only) 36.9 % (37-47); Hemoglobin 12.2 g/dL (12.0-16.0); Lymphocytes # (auto) 1.99 K/uL (1.2-3.4); Mean Corpuscular Hemoglobin 29.2 pg (25-34); Mean Corpuscular Hgb Conc 33.1 g/dL (32-36); Mean Corpuscular Volume 88.3 fL (80-100); Mean Platelet Volume 10.4 fL (7.4-10.4); Monocytes # (auto) 0.56 K/uL (0.11-0.59); Monocytes % (auto) 10.4 %; Neutrophils # (auto) 2.71 K/uL (1.4-6.5); Neutrophils % (auto) 50.3 %; Platelet Count 201 K/uL (130-400); RDW Coefficient of Variation 12.7 % (11.5-14.5); RDW Standard Deviation 40.7 fL (36.4-46.3); Red Blood Count 4.18 M/uL (4.2-5.4); White Blood Count 5.38 K/uL (4.8-10.8)
[2020-12-05] MEDS ORDERED: LIDOCAINE HCL 2% 2 ML VIAL/AMP(20MG/ML) INFIL ONE (06:52)
[2020-12-05] MEDS ORDERED: PROPOFOL IV EMULSION 10 MG/ML 20 ML VIAL IV ONE (06:52)
[2020-12-05] MEDS ORDERED: MIDAZOLAM HCL 1 MG/ML 2ML VIAL ONE (06:53)
[2020-12-05] MEDS ORDERED: fentaNYL citrate 100 MCG/2 ML VIAL ONE ×2 (06:53→08:09)
[2020-12-05 06:57] LABS: BUN Creatinine Ratio 18.1 (10-20); Calcium 8.1 mg/dl (8.5-10.1); Est GFR (African American) 141.3; Est GFR (Non-African American) 121.9; Potassium 3.8 mmol/L (3.5-5.1)
[2020-12-05] MEDS ORDERED: ONDANSETRON INJ 2 MG/ML 2 ML VIAL IV PRN (07:12)
[2020-12-05] MEDS ORDERED: ePHEDrine sulfate 50 MG/ML AMP IV PRN (07:12)
[2020-12-05] MEDS ORDERED: MoRPHine SULFATE 10 MG/ML CARP/VIAL IV PRN (07:12)
[2020-12-05] MEDS ORDERED: MEPERIDINE HCL 25 MG/ML CARP/VIAL IV PRN (07:12)
[2020-12-05] MEDS ORDERED: ATROPINE SULFATE 0.1 MG/ML 10ML SYR IV PRN (07:12)
--- NOTE | 2020-12-05 07:18 | Urology Progress Note ---
Date of Service December 05, 2020 Assessment & Plan (1) Abdominal pain, LLQ: (2) Ureteral calculus, left: Stone likely still in distal ureter on left. Discussed surgery for today. Cysto, left uscope, laser litho, stent. OK to [place] home post op. Admission and Anticipated Discharge Date Admission Date: December 03, 2020 Subjective Continued pain overnight. No fevers. No chills. No nausea. Urinating w/o difficulty. No hem. No dys. Review of Systems Review of Systems: All systems reviewed & are unremarkable except as noted in HPI & below Physical Exam Constitutional: WD/WN, vitals as above Respiratory: normal respiratory effort, lungs clear to auscultation Cardiovascular: RRR, no murmur, no edema Skin: no rashes, warm and dry Neurologic: patellar DTR's 2+ bilat, sensation intact Results & Data ([facility]) Vital Signs (Past 12 Hours) Vital Signs Temp Pulse Resp BP Pulse Ox 12/04/20 22:28 36.9 C 79 18 146/72 H 99 PG Care Time/CCT Total # of Minutes Spent Total Time Spent with Patient: Total time spent is greater than 50% in coordination of care (as documented) at patient's floor/unit and/or counseling patient: Coding Level of Care Code 29870 Subseq Hosp Care Lvl 3 Diagnoses Abdominal pain, LLQ R10.32 Ureteral calculus, left N20.1
[2020-12-05] MEDS ORDERED: SODIUM CHLORIDE 0.9% INJ 10 ML VIAL ONE (07:24)
[2020-12-05] MEDS ORDERED: ONDANSETRON INJ 2 MG/ML 2 ML VIAL ONE ×2 (07:33→08:09)
[2020-12-05] MEDS ORDERED: DEXAMETHASONE SOD INJ 4 MG/ML VIAL ONE (07:33)
--- NOTE | 2020-12-05 07:51 | Post Operative Brief Note ---
Immediate Post Op Note v1 Date of Surgery December 05, 2020 Pre & Post Diagnosis Operation Date: 12/05/20 07:30 <No data on this case meets the specified criteria> I identified the patient and participated in the time-out.: Yes Procedure Operation Date: 12/05/20 07:30 <No data on this case meets the specified criteria> cystoscopy, left ureteroscopy, laser lithotripsy, stone extraction, left ureteral stent placement Surgeon Lamont Ambrose MD Torpedo Specialist None Estimated Blood Loss 0 Findings Consistent with Post-Op Diagnosis
[2020-12-05] MEDS ORDERED: DIATRIZOATE MEGLUMINE 30% 100ML VIAL INSTIL ONE (07:58)
[2020-12-05] MEDS ORDERED: ceFAZolin 2000MG 2,000 MG/15 ML SYR IV ONE (07:59)
--- NOTE | 2020-12-05 08:02 | Fluoroscopy Report ---
FL retrograde includes kub CLINICAL HISTORY: CYSTO COMPARISON STUDY: CT of the abdomen and pelvis November 25, 2020. KUB and renal ultrasound December 03, 2020. FLUOROSCOPY TIME: 9 seconds. FLUOROSCOPIC IMAGES: 3 FINDINGS: Fluoroscopy was provided during cystoscopy with left retrograde exam and ureteral stent priya cement. IMPRESSION: Fluoroscopy provided during cystoscopy, left retrograde exam and ureteral stent insertio n. ACT 112: Negative or not required by law. Electronically signed by: Nader Pérez M.D. 12/05/2020 8:00 AM
[2020-12-05] MEDS: fentaNYL citrate 100 MCG/2 ML VIAL IV PRN ×3 (08:12→08:22)
--- NOTE | 2020-12-05 08:37 | Anesthesiology Progress Note ---
Date of Service December 05, 2020 Anesthesia Post Procedure Vital Signs Vital Signs: Temp Pulse Pulse Resp BP Pulse Ox 12/05/20 08:35 36.8 C 77 16 117/72 99 12/05/20 08:25 81 16 135/68 100 12/05/20 08:15 77 14 119/76 100 12/05/20 08:05 36.5 C 96 H 14 137/74 100 12/04/20 22:28 36.9 C 79 18 146/72 H 99 12/04/20 15:25 36.9 C 85 20 121/73 98 Pain Intensity Left Flank: Pain Intensity: 7 Perineal: Pain Intensity: 7 Transfer of Care Handoff Completed per policy Notes Mental Status: alert / awake / arousable Patient Amnestic to Procedure: Yes Nausea / Vomiting: adequately controlled Pain: adequately controlled Airway Patency, RR, SpO2: stable & adequate BP & HR: stable & adequate Hydration State: stable & adequate Anesthetic Complications: no major complications apparent and Pt Satisfied with anesthetic care
[2020-12-05] MEDS: TAMSULOSIN HCL 0.4 MG CAP PO SCH ×2 (09:07→10:27)
--- NOTE | 2020-12-05 09:20 | Operative Report (OR) ---
DATE OF OPERATION: 12/05/2020 SURGEON: Lamont Ambrose MD. PENETRATION TESTER: None. PREOPERATIVE DIAGNOSIS: Left ureteral calculus. POSTOPERATIVE DIAGNOSIS: Left ureteral calculus. PROCEDURE: Cystoscopy, left ureteroscopy, laser lithotripsy, stone basket extraction of stone, left retrograde pyelogram, left ureteral stent placement. ANESTHESIA: General endotracheal. COMPLICATIONS: None. SPECIMENS: Ureteral stone. DRAINS: A 6-Somali x 26 cm ureteral stent with long strings. ESTIMATED BLOOD LOSS: Minimal. CONDITION: Stable. FLUIDS: 500 mL normal saline. INDICATIONS: The patient is a 25-year-old female who recently presented with left sided flank pain. Imaging showed a 4 mm distal ureteral calculus. After she was unable to pass this with conservative treatment, she elected for the above procedure. DESCRIPTION OF PROCEDURE: The patient was brought to the operative suite and positively identified, placed on the table in supine position. After induction of general anesthesia, placed in dorsal lithotomy position. The genitalia prepped and draped in a sterile fashion. Preoperative antibiotics were administered and a timeout was performed. A rigid cystoscope was placed through the urethra and bladder. Urethra was normal. The bladder was unremarkable. I turned my attention toward the left ureteral orifice. This was intubated with an open-ended catheter and a retrograde pyelogram was performed that showed a filling defect in the distal ureter consistent with the stone seen on the previous imaging. There was also proximal hydroureteronephrosis. A wire was passed up to the level of the renal pelvis and a rigid ureteroscope was passed alongside this wire, the stone was encountered in the distal ureter. It was yellow and jagged and was not passing due to its irregular shape. Using a 365 micron holmium laser fiber, the stone was fragmented into multiple smaller pieces. The larger pieces were extracted using a Atif basket. The rest of the pieces were small enough to irrigate out without difficulty. Final retrograde pyelogram was performed. This was unremarkable. A 6-Somali x 26 cm ureteral stent was then placed with a good curl seen proximally and distally. The strings were left long and taped to the lower abdomen. The bladder was then drained. The patient tolerated the procedure well. Sponge and needle counts were correct. Taken to PACU in stable condition. I attest to the content of the Intraoperative Record and any orders documented therein. Any exception s are noted below.
[2020-12-05] MEDS ORDERED: HYDROmorphone INJ 0.5 MG/0.5 ML SYR IV STA (09:24)
[2020-12-05] MEDS ORDERED: HYDROmorphone INJ 0.5 MG/0.5 ML SYR ONE (09:28)
[2020-12-05] MEDS ORDERED: HYDROmorphone INJ 1 MG/ML SYRINGE IV STA (10:24)
[2020-12-05] MEDS: PHENAZOPYRIDINE HCL 200 MG TAB PO PRN ×2 (10:47→18:25)
[2020-12-05] MEDS: HYDROmorphone INJ 1 MG/ML SYRINGE IV PRN ×5 (12:54→22:39)
--- NOTE | 2020-12-05 18:43 | Hospitalist Progress Note ---
Date of Service December 05, 2020 Assessment & Plan (1) Ureteral calculus, left: Renal Ultrasound shows small stones in bilateral kidneys, but no evidence of hydronephrosis. KUB show a left pelvic calcification, possible ureteral stone. . -- Continue IV NSS. -- Continue Tamsulosin 0.4 mg daily. s/p stent and lithotripsy on 12/05 Ongoing pain We did discuss acupuncture and pt was agreeable to this. Done at bedside. Pt did feel improvement in her flank pain s/p acu Monitor overnight (2) Bilateral nephrolithiasis: -- Strain all urines. Admission and Anticipated Discharge Date Admission Date: December 03, 2020 Subjective Pt is s/p lithotripsy today. Pt with ongoing pain. She again states that the worst pain is her vagina and it travels up into her L side. She has tolerated PO. She has had several episodes of emesis related to intense pain. She can find positions of comfort at times. Uncertain if morphine vs dilaudid vs pyrimidine is most helpful. Pt denies fever, SOB, chest pain, c/d, LE pain or swelling. Review of Systems Review of Systems: Pertinent positives and negatives reviewed in HPI--all others negative Physical Exam Constitutional: WD/WN, vitals as above Eyes: normal visual good by confrontation and + anicteric sclerae Neck: normal visual inspection and trachea midline Respiratory: normal respiratory effort, lungs clear to auscultation Cardiovascular: Rate/Rhythm: regular rate and regular rhythm Gastrointestinal (Abdomen): Inspection/Auscultation: abdomen not distended Percussion/Palpation: abdomen soft; abdomen nontender Musculoskeletal: Head/Neck/Chest: normocephalic and head atraumatic Skin: no rashes, warm and dry Neurologic: awake; not confused Speech / Cognition: normal speech Psychiatric: A+Ox3, euthymic affect Results & Data Results & Data ([facility]) Vital Signs (Past 12 Hours) Vital Signs Temp Pulse Pulse Resp BP BP Pulse Ox 12/05/20 15:55 36.6 C 92 H 20 103/65 98 12/05/20 15:04 36.7 C 79 20 107/67 96 12/05/20 12:39 36.5 C 96 H 22 114/73 98 12/05/20 10:50 36.4 C L 80 18 105/70 95 12/05/20 10:02 36.4 C L 93 H 24 108/70 96 12/05/20 09:36 36.4 C L 83 18 114/73 99 12/05/20 08:51 36.7 C 73 16 117/72 100 12/05/20 08:40 70 16 116/86 96 12/05/20 08:35 36.8 C 77 16 117/72 99 12/05/20 08:25 81 16 135/68 100 12/05/20 08:15 77 14 119/76 100 12/05/20 08:05 36.5 C 96 H 14 137/74 100 PG Care Time/CCT Total # of Minutes Spent Total Time Spent with Patient: Total time spent is greater than 50% in coordination of care (as documented) at patient's floor/unit and/or counseling patient: Coding Level of Care Code 61729 Subseq Hosp Care Lvl 2 Diagnoses Ureteral calculus, left N20.1 Bilateral nephrolithiasis N20.0
[2020-12-05] MEDS: POLYETHYLENE (MIRALAX) 17 GM PACK PO PRN (20:49)
[2020-12-06] MEDS: HYDROmorphone INJ 1 MG/ML SYRINGE IV PRN ×9 (01:03→23:44)
[2020-12-06] MEDS: PHENAZOPYRIDINE HCL 200 MG TAB PO PRN ×3 (03:07→22:27)
[2020-12-06] MEDS: KETOROLAC 30 MG/ML VIAL IV PRN ×4 (03:07→23:45)
--- NOTE | 2020-12-06 08:04 | Urology Progress Note ---
Date of Service December 06, 2020 Assessment & Plan (1) Ureteral calculus, left: (2) Abdominal pain, LLQ: 25 year-old female patient admitted with intractable left flank pain secondary to obstructing 4 mm left distal ureteral calculus. -POD #1 cystoscopy, left ureteroscopy, laser lithotripsy, stone basket/extraction of stone, left retrograde pyelogram, and left ureteral stent placement. -Patient remains afebrile. -Continues to have left-sided abdominal/flank discomfort, likely related to stent. -Patient did have episode where tethered strings were slightly pulled - check KUB now to assess stent location. -Check bladder scan to ensure she is not experiencing retention. -Recommend continued bowel regimen and supportive care. -Continue Flomax, Pyridium, and PRN Ketorolac. -Can consider adding Oxybutynin 5 mg BID PRN bladder spasms, check bladder scan first. Caution with constipation. -Recommend maintaining stent for at least one week. -Will continue to follow while inpatient. Admission and Anticipated Discharge Date Admission Date: December 03, 2020 Subjective POD #1 cystoscopy, left ureteroscopy, laser lithotripsy, stone basket/extraction of stone, left retrograde pyelogram, and left ureteral stent placement. Patient continues to have lower abdominal discomfort that radiates into left flank/vaginal area. Experiencing spasms to lower abdomen/groin. Does report dysuria, urinary frequency and urgency. Denies hematuria. Feels she has urinary hesitancy. She had an episode where toilet paper did get caught on tethered string and she noticed a slight pull at that time. Has been out of bed ambulating without dizziness. Denies fevers or chills. Denies nausea or vomiting this morning, resolved from yesterday. Chart review: Afebrile Labs reviewed 12/05 - Wbc 5.38 Hgb 12.2 Creatinine 0.66 Urine culture 12/03 with three types of organisms present, all high counts probable skin tom. Denies additional urologic concerns today. Review of Systems Constitutional: as per Subjective / HPI; no fever and no chills Gastrointestinal: as per Subjective / HPI; no nausea and no vomiting Genitourinary: as per Subjective / HPI Neurologic: as per Subjective / HPI Physical Exam Constitutional: well developed and well nourished; no acute distress and not ill appearing Respiratory: normal respiratory effort and able to speak in complete sentenc es; no respiratory distress and no audible wheezes Gastrointestinal (Abdomen): Inspection/Auscultation: abdomen normal to inspection; abdomen not distended Percussion/Palpation: + abdomen tender (Lower abdomen) and abdomen soft; no guarding Psychiatric: Orientation: alert, oriented x 3 and cooperative Affect: euthymic affect Genitourinary: Urine without gross hematuria. Tethered stent strings intact, secured to abdomen. No visible extrusion of stent on vaginal exam. Results & Data ([facility]) Vital Signs (Past 12 Hours) Vital Signs Temp Pulse Pulse Resp BP Pulse Ox 12/06/20 03:49 73 113/62 12/05/20 23:21 36.4 C L 73 16 93/57 L 96 PG Care Time/CCT Total # of Minutes Spent Total Time Spent with Patient: Total time spent is greater than 50% in coordination of care (as documented) at patient's floor/unit and/or counseling patient: Coding Level of Care Code 58191 Subseq Hosp Care Lvl 2 Diagnoses Ureteral calculus, left N20.1 Abdominal pain, LLQ R10.32
[2020-12-06] MEDS: TAMSULOSIN HCL 0.4 MG CAP PO SCH (09:25)
--- NOTE | 2020-12-06 09:34 | XRay Report ---
KUB HISTORY: Follow up study in a patient with left ureteral stent left groin pain, check stent position COMPARISON: KUB 12/03/2020, CT abdomen pelvis 11/25/2020. FINDINGS: Nonobstructive bowel gas pattern with mild to moderate fecal retention. Left ureteral sten t appears to be in satisfactory positioning. The previously noted 3 mm left pelvic basin calcificatio ns along identified. Punctate left nephrolithiasis. The known right nephrolithiasis are obscured by c olonic stool. No pneumoperitoneum or pneumatosis. No fracture. IMPRESSION: 1. Left ureteral stent in place. No ureteral calculi identified. 2. Punctate left nephrolithiasis. 3. The known right nephrolithiasis are obscured by colonic stool. ACT 112: Negative or not required by law. The above report was generated using voice recognition software. It may contain grammatical, syntax o r spelling errors. Electronically signed by: Junior Mcdonald M.D. 12/06/2020 9:33 AM
[2020-12-06] MEDS: MAGNESIUM HYDROXIDE SUSP 30 ML UDC PO PRN (10:28)
[2020-12-06] MEDS: D5W AND 1/2NSS 1,000 ML IV SCH ×2 (10:54→22:28)
[2020-12-06 14:01] LABS: Appearance Urine Clear (Clear); Bacteria Urine Automated Negative (Negative); Bilirubin Urine Negative (Negative); Blood Urine 3+ (Negative); Color Urine Dark Yellow; Epithelial Cell Urine Auto >30 /lpf (0-5); Glucose Urine UA Negative (Negative); Ketones Urine Negative (Negative); Leukocyte Esterase Urine 1+ (Negative); Nitrite Urine Positive (Negative); RBC Urine Automated >30 /hpf (0-4); Specific Gravity Urine 1.011 (1.000-1.030); Urobilinogen Urine Negative (Negative); pH Urine 7.5 (4.5-7.5)
[2020-12-06 14:12] LABS: Protein Urine 1+ (Negative)
--- NOTE | 2020-12-06 17:41 | Hospitalist Progress Note ---
Date of Service December 06, 2020 Assessment & Plan (1) Ureteral calculus, left: Renal Ultrasound on admission shows small stones in bilateral kidneys, but no evidence of hydronephrosis. KUB show a left pelvic calcification, possible ureteral stone. . -- Continue IV NSS. -- Continue Tamsulosin 0.4 mg daily. s/p stent and lithotripsy on 12/05 Ongoing pain KUB 12/06 noted for stent in place despite tether pull Repeat UA 12/06 noted for + leuk est, + nitrites now Urine cx on admission with mixed skin tom, repeat pending Will start cipro 12/06 given ongoing pain with urine retention (2) Bilateral nephrolithiasis: -- Strain all urines. Admission and Anticipated Discharge Date Admission Date: December 03, 2020 Subjective Pt with ongoing pain, worst in her vaginal region. Some decrease in flank pain, however still present. She accidentally tugged a bit on her stent tether while cleaning and this caused a lot of pain. She was also unable to urinate last night. Bladder scanned for 700cc. Her n/v has stopped today. She has been able to eat. Pt denies fever, SOB, chest pain, c/d, LE pain or swelling. Review of Systems Review of Systems: Pertinent positives and negatives reviewed in HPI--all others negative Physical Exam Constitutional: WD/WN, vitals as above Eyes: normal visual good by confrontation and + anicteric sclerae Neck: normal visual inspection and trachea midline Respiratory: normal respiratory effort, lungs clear to auscultation Cardiovascular: Rate/Rhythm: regular rate and regular rhythm Gastrointestinal (Abdomen): Inspection/Auscultation: abdomen not distended Percussion/Palpation: + abdomen tender (pelvic TTP) and abdomen soft Musculoskeletal: Head/Neck/Chest: normocephalic and head atraumatic Skin: no rashes, warm and dry Neurologic: awake; not confused Speech / Cognition: normal speech Psychiatric: A+Ox3, euthymic affect Results & Data Results & Data ([facility]) Vital Signs (Past 12 Hours) Vital Signs Temp Pulse Resp BP Pulse Ox 12/06/20 15:08 36.7 C 16 106/65 96 12/06/20 08:04 36.4 C L 65 16 121/73 100 PG Care Time/CCT Total # of Minutes Spent Total Time Spent with Patient: Total time spent is greater than 50% in coordination of care (as documented) at patient's floor/unit and/or counseling patient: Coding Level of Care Code 38683 Subseq Hosp Care Lvl 3 Diagnoses Ureteral calculus, left N20.1 Bilateral nephrolithiasis N20.0
[2020-12-06] MEDS ORDERED: CIPROFLOXACIN 250 MG TAB PO SCH (18:00)
[2020-12-06] MEDS: ONDANSETRON INJ 2 MG/ML 2 ML VIAL IV PRN (18:38)
[2020-12-06] MEDS: diphenhydrAMINE 50 MG/ML VIAL IV PRN (21:39)
[2020-12-06] MEDS: POLYETHYLENE (MIRALAX) 17 GM PACK PO PRN (21:39)
[2020-12-07] MEDS: HYDROmorphone INJ 1 MG/ML SYRINGE IV PRN ×8 (02:27→23:03)
[2020-12-07] MEDS: MAGNESIUM HYDROXIDE SUSP 30 ML UDC PO PRN ×2 (05:05→22:05)
[2020-12-07] MEDS: KETOROLAC 30 MG/ML VIAL IV PRN ×3 (05:54→19:43)
[2020-12-07] MEDS: PHENAZOPYRIDINE HCL 200 MG TAB PO PRN ×2 (08:12→15:41)
[2020-12-07] MEDS: cefTRIAXone SODIUM 2,000 MG in DEXTROSE 5% 50 ML IV SCH (08:45)
--- NOTE | 2020-12-07 09:23 | Urology Progress Note ---
Date of Service December 07, 2020 Assessment & Plan (1) Ureteral calculus, left: (2) Abdominal pain, LLQ: 25 year-old female patient admitted with intractable left flank pain secondary to obstructing 4 mm left distal ureteral calculus. -POD #2 s/p cystoscopy, left ureteroscopy, laser lithotripsy, stone basket/extraction of stone, left retrograde pyelogram, and left ureteral stent placement. -Patient remains afebrile. -Continues to have left-sided abdominal/flank discomfort, likely related to stent. -KUB yesterday noted the left ureteral stent in satisfactory positioning. -Urine culture on admission with mixed skin tom, repeat culture pending -Continue broad spectrum IV antibiotics pending final culture results -Recommend continued bowel regimen and supportive care. -Continue Flomax, Pyridium, and pain control. -Will plan to remove tethered stent this morning and will continue to monitor Admission and Anticipated Discharge Date Admission Date: December 03, 2020 Subjective POD #2 cystoscopy, left ureteroscopy, laser lithotripsy, stone basket/extraction of stone, left retrograde pyelogram, and left ureteral stent placement. Pt examined at bedside this AM. Awake, resting in bed on arrival. Patient continues to have lower abdominal discomfort that radiates into left flank/vaginal area. Experiencing spasms to lower abdomen/groin. Voiding spontaneously with hematuria and dysuria She does reports some urinary urgency and hesitancy Ambulating without dizziness. Denies fevers or chills. Denies nausea or vomiting. Tolerating minimal PO intake this morning. Chart review: Afebrile Urine culture -pending Urine output overnight -795 ml On IV Ceftriaxone Continues on Flomax, Pyridium Review of Systems Constitutional: as per Subjective / HPI Gastrointestinal: as per Subjective / HPI Genitourinary: as per Subjective / HPI Physical Exam Constitutional: well developed and well nourished; no acute distress Respiratory: normal respiratory effort and able to speak in complete sentences Cardiovascular: Extremities: no calf tenderness Gastrointestinal (Abdomen): Inspection/Auscultation: abdomen normal to inspection; abdomen not distended Percussion/Palpation: + abdomen tender (Lower abdomen) and abdomen soft; no guarding Musculoskeletal: Head/Neck/Chest: normocephalic Skin: no rashes, warm and dry Neurologic: moves all extremities and awake; not confused Psychiatric: Orientation: alert, oriented x 3 and cooperative Results & Data ([facility]) Vital Signs (Past 12 Hours) Vital Signs Temp Pulse Resp BP BP Pulse Ox 12/07/20 07:56 36.8 C 60 16 97/56 L 97 12/06/20 22:04 36.5 C 72 18 112/72 97 PG Care Time/CCT Total # of Minutes Spent Total Time Spent with Patient: Total time spent is greater than 50% in coordination of care (as documented) at patient's floor/unit and/or counseling patient: Coding Level of Care Code 88343 Subseq Hosp Care Lvl 2 Diagnoses Ureteral calculus, left N20.1 Abdominal pain, LLQ R10.32
[2020-12-07] MEDS: ACETAMINOPHEN 325 MG TAB PO PRN (09:36)
[2020-12-07] MEDS: D5W AND 1/2NSS 1,000 ML IV SCH (11:43)
[2020-12-07] MEDS: ONDANSETRON INJ 2 MG/ML 2 ML VIAL IV PRN ×2 (12:13→18:42)
--- NOTE | 2020-12-07 16:48 | Hospitalist Progress Note ---
Date of Service December 07, 2020 Assessment & Plan (1) Ureteral calculus, left: Renal Ultrasound on admission shows small stones in bilateral kidneys, but no evidence of hydronephrosis. KUB show a left pelvic calcification, possible ureteral stone. . -- Continue IV NSS. -- Continue Tamsulosin 0.4 mg daily. s/p stent and lithotripsy on 12/05 Ongoing pain KUB 12/06 noted for stent in place despite tether pull Repeat UA 12/06 noted for + leuk est, + nitrites now Urine cx on admission with mixed skin tom, repeat pending Will start cipro 12/06 given ongoing pain with urine retention, however possible reaction to it s/p initial dose Changed to ceftriaxone Possible that ongoing pain is due to UTI s/p procedure in the setting of traumatic stone removal and stent placement Urology is discussing d/c'ing stent (2) Bilateral nephrolithiasis: -- Strain all urines. Admission and Anticipated Discharge Date Admission Date: December 03, 2020 Subjective Ongoing pain, worst in the vaginal region/pelvic region. Urinating again. No further n/v. Tolerating PO, but appetite is low. Pt denies fever, SOB, chest pain, c/d, LE pain or swelling. Pt without hx of medication rxns, however was noted by nursing to have developed a red flushing type rash on chest and face last night s/p cipro dosing. Was given benadryl and this has stopped. Was changed to ceftriaxone. Review of Systems Review of Systems: Pertinent positives and negatives reviewed in HPI--all others negative Physical Exam Constitutional: WD/WN, vitals as above Eyes: normal visual good by confrontation and + anicteric sclerae Neck: normal visual inspection and trachea midline Respiratory: normal respiratory effort, lungs clear to auscultation Cardiovascular: Rate/Rhythm: regular rate and regular rhythm Gastrointestinal (Abdomen): Inspection/Auscultation: abdomen not distended Percussion/Palpation: + abdomen tender (pelvic TTP) and abdomen soft Musculoskeletal: Head/Neck/Chest: normocephalic and head atraumatic Skin: no rashes, warm and dry Neurologic: awake; not confused Speech / Cognition: normal speech Psychiatric: A+Ox3, euthymic affect Results & Data Results & Data ([facility]) Vital Signs (Past 12 Hours) Vital Signs Temp Pulse Resp BP BP Pulse Ox 12/07/20 15:19 36.5 C 76 16 122/82 99 12/07/20 07:56 36.8 C 60 16 97/56 L 97 PG Care Time/CCT Total # of Minutes Spent Total Time Spent with Patient: Total time spent is greater than 50% in coordination of care (as documented) at patient's floor/unit and/or counseling patient: Coding Level of Care Code 22078 Subseq Hosp Care Lvl 3 Diagnoses Ureteral calculus, left N20.1 Bilateral nephrolithiasis N20.0
[2020-12-07] MEDS: POLYETHYLENE (MIRALAX) 17 GM PACK PO PRN (22:05)
[2020-12-08] MEDS: D5W AND 1/2NSS 1,000 ML IV SCH (00:11)
[2020-12-08] MEDS: OXYBUTYNIN CHLORIDE 5 MG TAB PO PRN ×2 (00:12→11:30)
[2020-12-08] MEDS: diphenhydrAMINE 50 MG/ML VIAL IV PRN ×2 (00:12→23:15)
--- NOTE | 2020-12-08 07:47 | Urology Progress Note ---
Date of Service December 08, 2020 Assessment & Plan (1) Ureteral calculus, left: (2) Abdominal pain, LLQ: 25 year-old female patient admitted with intractable left flank pain secondary to obstructing 4 mm left distal ureteral calculus. -POD #3 s/p cystoscopy, left ureteroscopy, laser lithotripsy, stone basket/extraction of stone, left retrograde pyelogram, and left ureteral stent placement. -Ureteral stent removed yesterday, now with improvement in discomfort. -Patient remains afebrile. -Urine culture pending, continue antibiotic therapy and await final. -Recommend continued bowel regimen and supportive care. -Continue Tamsulosin, PRN Pyridium, and pain control. -No additional acute intervention indicated at this time. -Okay to discharge home from perspective, home with antibiotics pending culture. -Will arrange outpatient follow-up with urology service for continued care. -Expected clinical course reviewed with patient, all questions answered. Thank you for allowing us to participate in the acute care of Ms. Leyva. Please reconsult us with additional questions, concerns or changes in patient status. Admission and Anticipated Discharge Date Admission Date: December 03, 2020 Subjective Patient examined at bedside, resting comfortably. She reports overall, she is feeling better each day. Abdominal and vaginal pain has improved s/p stent removal. Did have discomfort late last evening, improved with addition of Oxybutynin. Notes mild dysuria and urinary frequency. Denies hematuria. Feels she is now emptying her bladder well. Denies nausea or vomiting. Denies fevers or chills. Has been ambulating without dizziness/lightheadedness. Chart review: Afebrile. Urine culture pending - currently on IV Ceftriaxone. Denies additional urologic concerns today. Review of Systems Constitutional: as per Subjective / HPI; no fever and no chills Gastrointestinal: as per Subjective / HPI; no nausea and no vomiting Genitourinary: as per Subjective / HPI Neurologic: as per Subjective / HPI Physical Exam Constitutional: well developed and well nourished; no acute distress and not ill appearing Respiratory: normal respiratory effort and able to speak in complete sentences; no respiratory distress and no audible wheezes Gastrointestinal (Abdomen): Inspection/Auscultation: abdomen normal to inspection; abdomen not distended Percussion/Palpation: + abdomen tender (Mid lower abdomen) and abdomen soft; no guarding Psychiatric: Orientation: alert, oriented x 3 and cooperative Affect: euthymic affect Results & Data ([facility]) Vital Signs (Past 12 Hours) Vital Signs Temp Pulse Resp BP Pulse Ox 12/07/20 22:10 36.6 C 80 18 112/74 95 PG Care Time/CCT Total # of Minutes Spent Total Time Spent with Patient: Total time spent is greater than 50% in coordination of care (as documented) at patient's floor/unit and/or counseling patient: Coding Level of Care Code 12277 Subseq Hosp Care Lvl 2 Diagnoses Ureteral calculus, left N20.1 Abdominal pain, LLQ R10.32
[2020-12-08] MEDS: cefTRIAXone SODIUM 2,000 MG in DEXTROSE 5% 50 ML IV SCH (08:44)
[2020-12-08] MEDS: TAMSULOSIN HCL 0.4 MG CAP PO SCH (08:44)
[2020-12-08] MEDS: PHENAZOPYRIDINE HCL 200 MG TAB PO PRN (08:46)
[2020-12-08] MEDS: KETOROLAC 30 MG/ML VIAL IV PRN (08:50)
[2020-12-08] MEDS ORDERED: bisacodyL 10 MG SUPP PR STA (10:50)
[2020-12-08] MEDS: ACETAMINOPHEN 325 MG TAB PO PRN (11:29)
[2020-12-08] MEDS: HYDROmorphone INJ 1 MG/ML SYRINGE IV PRN ×2 (11:49→16:00)
--- NOTE | 2020-12-08 11:54 | Discharge Summary ---
Date of Service date of admission - December 03, 2020 date of discharge - December 09, 2020 Admission HPI Per Admitting Provider Damaris is a healthy 25-year-old female with a history of Hyperthyroidism, GERD, Depression, Anxiety, Migraine Headaches, and Nephrolithiasis who presents acu tely to [facility] ER today complaining of sudden onset severe left flank and groin pain which is colicky and sharp at times. It began at 0700 today. The pain radiates into her left groin and into her vagina. She has associated nausea, vomiting, and diaphoresis. Patient has been given IV fluids, IV morphine, IV Toradol, and IV Zofran. Her pain is reasonably well controlled at this time. She continues to break out in cold sweats. She is not currently nauseated. Patient offers no other complaints. She has not had any fevers, chills, urinary frequency, urinary urgency, or any dysuria. Patient has not had any cough, sputum production, loss of sense of taste, loss of sense of smell, or any symptoms concerning for coronavirus. She denies being . The patient was seen in the ER on 11/25/2020 complaining of flank pain and she was diagnosed with a 4 mm distal ureteral stone. She has been doing well since that time and has been taking Tamsulosin and using Zofran on an "as needed" basis. She has not knowingly passed any stones. Patient also has a right-sided kidney stone that was documented in August 2020 on imaging. Principal Diagnosis obstructing left-sided kidney stone s/p laser lithotripsy, stent placement and retrieval Discharge Exam Constitutional well developed and well nourished; no acute distress and no altered mental status [facility] external ear and nose normal, oropharynx normal Respiratory normal respiratory effort, lungs clear to auscultation Cardiovascular Rate/Rhythm: regular rate and regular rhythm Heart Sounds: normal S1 and normal S2; no murmur Vessels: posterior tibial pulses present and dorsalis pedis pulses present; no JVD Extremities: no edema Gastrointestinal (Abdomen) normal bowel sounds, soft, nontender, no hepatosplenomegaly Percussion/Palpation: abdomen nontender (over flanks ) Skin no rashes, warm and dry Psychiatric A+Ox3, euthymic affect Discharge Data Allergies Allergy/AdvReac Type Severity Reaction Status Date / Time No Known Allergies Allergy Verified 12/13/20 09:19 [address]ations [facility] Procedures Performed 1. Operation Date: 12/05/20 07:30 Actual Procedures Cystoscopy, Left Ureteroscopy, Laser Lithotripsy, Stent Insertion - Lamont Ambrose MD 2. removal of left-sided stent - 12/07/20 Ordered Studies 12/03/20 07:55 US renal/blad retro comp Stat IMPRESSION: 1. No hydronephrosis. 2. Small bilateral renal calculi. 12/05/20 07:01 FL retrograde includes kub Routine Hospital Course (1) Ureteral calculus, left: 4mm stone, left distal ureter - s/p stent and laser lithotripsy on 12/05/20. Patient had considerable post-op pain along with irritating symptoms. Thus, the stent was removed on 12/07/20. Following removal her pain and other symptoms improved markedly. At discharge she will continue flomax, pyridium prn, oxybutinin prn, and norco prn. Of note - the patient's creatinine was stable the entire stay with discharge creatinine of 0.7. She will f/u with [facility] within 1-2 weeks of discharge. (2) Bilateral nephrolithiasis: Patient with strong genetic risk factor - father has stones. Also patient admits to poor liquid intake on daily basis. We discussed the importance of proper hydration, moderating caffeinated beverages, etc. Recent left-sided stone was sent for stone analysis. This was pending at discharge. (3) Constipation: Patient had severe constipation which delayed her discharge by 24 hours. KUB x-ray showed moderate-severe constipation but no ileus. She did move her bowels prior to discharge. She will need to remain on bowel maintenance post-discharge. (4) UTI (urinary tract infection): A repeat u/a from 12/06/20 was very suspicious for UTI. Urine culture, however, was negative. [id number] I treated her for suspected UTI as she reported dysuria and other UTI symptoms. She received rocephin for 2 days then was changed to keflex for additional 5 days at discharge. Total Time Total Time Spent Total Time Spent (In Minutes): 35 Total Time Includes: Examination of the Patient, Discharge Planning and Medication Reconciliation Discharge Plan Discharge Items Patient Disposition: Home - Self-Care Reason For Visit: kidney stone Discharge Diagnosis: 1. Kidney stone on left -- lithotripsy performed, stent placed - with ultimate removal of stent on 12/07. 2. Suspected urinary tract infection. Condition on Discharge: Good Activity: As commented below Activity Comment: gradually increase your activities over the next 7-10 days Bathing: No limitations Sexual Activity: Wait until after follow-up appointment Exercise/Sports: Wait until after follow-up appointment Driving/Machine Use: No driving if you are taking narcotic pain killer medication Non-emergency contact: Primary Care Provider and Urologist Call non-emergency contact if: you have any medication questions, your symptoms worsen, your pain is not controlled, your pain is worsening and you have a fever Follow-up/Referrals: Luisa Roldan MD [Primary Care Provider] - (f/u within 1 week ) Teresa Mantilla CRNP [Nurse Practitioner] - 12/20/20 1:00 pm (see LAURA Dutton at Urology office, in 1-2 weeks) Diet: Regular Addtl Attending Provider Instructions: Miss Leyva, Ras were treated for a left-sided kidney stone by the [facility] team. They performed laser lithotripsy to break the stone up, then placed a stent in the left ureter. Following your surgery you had a considerable amount of "stent pain" and therefore the stent was removed on 12/07/20. Your urine was also suspicious for urinary tract infection but the cultures were negative. [id number] I plan on treating you for urinary tract infection. Finally, you had considerable constipation because of pain killer medication and your recent surgery. Both slow down the bowels/GI tract leading to constipation. Recommendations - 1. for pain - * hydrocodone-acetaminophen tablets, 1 every 6 hours as needed * pain killer medication contributes to constipation - see "constipation" below * pain killer medication can make you sleepy; therefore, do not drive if taking pain killer medication, and do not drink alcohol while taking this medication * lastly, since the pain medication has tylenol in it, do not take extra jeox-egu-skjxhro tylenol while taking narcotics 2. for urinary burning - * pyridium 200mg every 8 hours as needed * this medication will turn your urine and tears orange - this is a normal side effect 3. for bladder pain/spasm - * oxybutinin 5mg every 12 hours as needed * this medication often causes dry mouth 4. for kidney/ureter pain - * take flomax 0.4mg daily until the urology team asks you to stop it 5. for suspected urinary tract infection - * cephalexin 500mg twice daily x 5 days starting today, 12/09/20 6. for prevention and treatment of constipation - * [id number]-nvpqhje miralax once to twice daily * senna (senakot) 2 tabs daily * you may need dulcolax suppository on as needed basis 7. for prevention of kidney stones - * drink lots of water / crystal lite / lemonade on daily basis * avoid excessive amounts of caffeinated beverages including dark sodas, tea, coffee Follow-up - see separate section Return to [facility] if - * you have fevers over 100 degrees * you have recurrent, severe bladder or abdominal pain * you are voiding/urinating large amounts of blood * you have inability to pass gas from your rectum or stool * you are unable to void * any other concerns Feel better! -Dr Ramseh Pending Studies at Discharge: No Stand-Alone Forms: My [facility], Smoking Cessation Medications and DC Order Prescriptions: New phenazopyridine [Pyridium] 200 mg Tablet 200 mg PO TID PRN (Reason: urinary burning/bladder pain) Qty: 15 RF: 0 oxybutynin chloride 5 mg Tablet 5 mg PO BID PRN (Reason: bladder pain/spasm) Qty: 20 RF: 0 hydrocodone-acetaminophen 5-325 mg tablet 1 tab PO Q6H PRN (Reason: pain) Qty: 14 RF: 0 Continued tamsulosin [Flomax] 0.4 mg capsule 0.4 mg PO DAILY Qty: 14 RF: 0 ondansetron 4 mg tablet,disintegrating 4 mg PO Q8H PRN (Reason: nausea and vomiting) Qty: 30 RF: 0 Discharge Orders: Discharge Order (Routine); Ordered 12/09/20 Ordered By: Morgan Dorsey/Other Patient Handouts: Understanding Kidney Stones, ED Kidney Stone w/ Colic Admission Data Admit Date/Time: 12/03/20 11:51 Attending Provider: Morgan Ramesh Admit Provider: Morgan Montero Primary Care Provider: Luisa Roldan Other Providers: Chris Do ; Morgan Montero ; Efren Rosenberg Other Interventions: Discharge Summary Assessment (RN) Last Done: 12/09/20 10:30 Coding Level of Care Code D/C Day Management >30 mins Diagnoses Ureteral calculus, left N20.1 Bilateral nephrolithiasis N20.0 Constipation K59.00 UTI (urinary tract infection) N39.0
[2020-12-08] MEDS: MAGNESIUM HYDROXIDE SUSP 30 ML UDC PO PRN (13:05)
[2020-12-08] MEDS: ONDANSETRON INJ 2 MG/ML 2 ML VIAL IV PRN (13:05)
--- NOTE | 2020-12-08 15:53 | XRay Report ---
XR KUB/Abdomen 1 view CLINICAL HISTORY: Abdominal pain. Absent flatus. COMPARISON STUDY: December 06, 2020 FINDINGS: There is no pathologic bowel dilatation. The left-sided nephroureteral stent has been remov ed. No renal calculi are visualized on conventional radiographic evaluation. Right abdominal small daryn wel loops are at the upper limits of normal in diameter. IMPRESSION: 1. Interval removal of the left-sided nephroureteral stent 2. Nonobstructive bowel gas pattern ACT 112: Negative or not required by law. Electronically signed by: Yaron Chase M.D. 12/08/2020 3:52 PM
[2020-12-08] MEDS ORDERED: KETOROLAC 30 MG/ML VIAL IV PRN (16:26)
[2020-12-08] MEDS: POLYETHYLENE (MIRALAX) 17 GM PACK PO SCH ×5 (17:29→21:54)
--- NOTE | 2020-12-08 19:55 | Hospitalist Progress Note ---
Date of Service December 08, 2020 Assessment & Plan (1) Ureteral calculus, left: 4mm, left distal ureter - s/p stent and laser lithotripsy on 12/05. considerable post-op pain and symptoms. thus, s/p stent removal on 12/07. cont flomax, pyridium prn, oxybutinin prn, limited use of pain meds prn. (2) Bilateral nephrolithiasis: genetic component - father with stones. 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 lengthy discussion held today about proper hydration, moderating caffeinated beverages, etc. recent stone sent for analysis. (3) Constipation: severe. KUB x-ray today with mod-severe constipation; no ileus. miralax x 5 days. already received dulcolax suppos w/o significant benefit today. if miralax doesn't open her up then may need relistor or even golytely. (4) UTI (urinary tract infection): repeat u/a from 12/06 very suspicious for UTI. this is despite negative repeat culture. will treat for suspected UTI - likely a complication of recent instrumentation of urinary tract, stent, stone, etc. received rocephin last 2 days; change to keflex for additional 5 days. treat symptoms w/ pyridium, etc (5) DVT prophylaxis: low risk defer on chemical means d/c dilaudid - this is simply making constipation worse focus on Rx of constipation this evening hopefully can d/c home tomorrow can stop IV fluids - is drinking well Admission and Anticipated Discharge Date Admission Date: December 03, 2020 Subjective Ms Leyva c/o crampy abdominal pain and bloating. Has not had bowel movement since last Sunday or . She is passing some flatus and is able to eat/drink without vomiting, however. following my visit today we agreed to try dulcolax suppository. she passed 2 small, firm, hard balls of stool only with such. still c/o abd pain following the passage of these 2 tiny stools. also with foul-smelling urine and dysuria along with bladder spasm. no flank pain. no fever. following stent removal yesterday her pain is significantly improved overall on grand scale. Review of Systems Constitutional: + fatigue; no fever, no chills and no anorexia Respiratory: no cough and no dyspnea on exertion Cardiovascular: no chest pain Gastrointestinal: + abdominal pain and + constipation; no nausea and no vomiting Physical Exam Constitutional: well developed and well nourished; no acute distress and no altered mental status ENMT: external ear and nose normal, oropharynx normal Respiratory: normal respiratory effort, lungs clear to auscultation Auscultation: + diminished lung sounds (Bases ) Cardiovascular: Rate/Rhythm: regular rate and regular rhythm Heart Sounds: normal S1 and normal S2; no murmur Vessels: posterior tibial pulses present and dorsalis pedis pulses present Extremities: no edema Gastrointestinal (Abdomen): Inspection/Auscultation: normal bowel sounds; abdomen not distended Percussion/Palpation: + abdomen tender and abdomen soft; no guarding and no hepatosplenomegaly Psychiatric: A+Ox3, euthymic affect Results & Data Results & Data ([facility]) Vital Signs (Past 12 Hours) Vital Signs Temp Pulse Resp BP Pulse Ox 12/08/20 15:36 37.1 C 77 18 105/70 96 Laboratory Results urine cx negative (from 12/07) PG Care Time/CCT Total # of Minutes Spent Total Time Spent with Patient: Total time spent is greater than 50% in coordination of care (as documented) at patient's floor/unit and/or counseling patient: Coding Level of Care Code 56136 Subseq Hosp Care Lvl 3 Diagnoses Ureteral calculus, left N20.1 Bilateral nephrolithiasis N20.0 Constipation K59.00 UTI (urinary tract infection) N39.0 DVT prophylaxis Z29.9
[2020-12-09 03:07] LABS: Component 2 DNR; Source LEFT URETERAL STONE
[2020-12-09 07:18] LABS: BUN Creatinine Ratio 22.4 (10-20); Creatinine Clr Calc Pharmacy 123.6 ml/min; Est GFR (African American) 136.2; Est GFR (Non-African American) 117.6; Magnesium 1.8 mg/dl (1.8-2.4)
[2020-12-09] MEDS ORDERED: bisacodyL 5 MG TABEC PO ONE (07:49)
[2020-12-09] MEDS: TAMSULOSIN HCL 0.4 MG CAP PO SCH (09:06)
== END 2020-12-09 10:59 | disposition home or self-care (01) | DRG 660 ==
LOC: ED 07:40 → 3N 11:51 → SUATTDRO 11:51 → 3N 13:41

== ENCOUNTER 2021-03-08 04:40 | Inpatient (IN) ==
[2021-03-08] MEDS ORDERED: KETOROLAC TROMETHAMINE 15 MG/ML VIAL IV STA (04:55)
[2021-03-08] MEDS ORDERED: MoRPHine SULFATE 4 MG/ML 1 ML CARP\\VIAL IV STA (04:55)
[2021-03-08] MEDS ORDERED: ONDANSETRON INJ 2 MG/ML 2 ML VIAL IV STA ×2 (04:55→06:31)
--- NOTE | 2021-03-08 04:58 | Emergency Department Note ---
History of Present Illness General Chief complaint: Flank Pain Stated complaint: RT FLANK PAIN TO GROIN Time Seen by Provider: 03/08/21 04:47 History of Present Illness Maximum Pain Intensity: 9 This is a 25-year-old female that presents to the emergency department via private vehicle with complaints "right flank pain to groin". Patient denies any known trauma or injury. She has a history of kidney stones. This feels similar. She notes that yesterday she developed some right-sided back pain that then seemed to stop. Then she awoke 1 hour ago while sleeping with sharp stabbing pain to the right flank and radiating to the vaginal region. She notes that she is currently menstruating. She has associated nausea. She denies any fevers, chills or vomiting. No dysuria. Current discomfort at this time is a 9/10. Home Medications Medication Instructions Recorded Confirmed Type aluminum chloride 20 % topical 1 applic TOPICAL .COMPLEX #35 ml 01/12/21 03/08/21 Rx solution citalopram 20 mg PO QAM 03/08/21 03/08/21 History hydroxyzine pamoate [Vistaril] 25 mg PO DAILY PRN 03/08/21 03/08/21 History Allergies Allergy/AdvReac Type Severity Reaction Status Date / Time No Known Allergies Allergy Verified 03/08/21 08:16 Past Med/Surg History Medical History Anxiety Depression Dysuria GERD (gastroesophageal reflux disease) On occasions Hyperthyroidism Not on any medication LLQ abdominal pain Low TSH level Migraine Ovarian cyst Palpitations Pyelonephritis Ureteral calculus, left Vitamin D deficiency Surgical History Nasal fracture Repair of nasal fracture S/P cystoscopy with ureteral stent placement 12/05/20 Dr. Lamont Ambrose- Cystoscopy, Left ureteroscopy, Laser lithotripsy, Stone basket extraction of stone, Left retrograde pyelogram, Left ureteral stent placement Family History Mother Breast cancer Other Cancer Hypertension Kidney stones Denies family history of Ovarian cancer Prostate cancer Heart disease Myocardial infarction Colorectal cancer Social History Smoking Status: Never smoker Second Hand Exposure: No; Do You Dip or Chew Tobacco: No; Hx Alcohol Use: Yes Alcohol type: wine and hard liquor Hx Substance Use: No Preferred Language: Arabic Communication Ability: Effective Visual Impairment: No Limitations Hearing Ability: Normal Car Repairer Required: No Beliefs That Will Affect Care: None marital status: Single Current Living Situation: Parent Current Living Situation Comment: lives with parents and child current occupational status: employed Other Information That Helps Us Care for You: No Feels Safe at Home: Yes Safety Concerns: Feels Safe At This Time Childhood Exposure to Second-Hand Smoke: No Physical Activity Frequency: Daily Seatbelt Use: always Sunscreen Use: Yes Assistive Devices: None Review of Systems A total of 10 systems reviewed and were otherwise negative Physical Exam Vital Signs Vital Signs - 24 hr 03/08/21 08:30 03/08/21 08:37 03/08/21 09:00 Pulse Rate 83 73 Pulse Rate [Apical] 62 Pulse Rate from SpO2 Sensor 85 67 Respiratory Rate 13 18 15 Blood Pressure 106/77 Blood Pressure [Left Arm] 107/81 Blood Pressure Mean 86 Blood Pressure Mean [Left Arm] 89 Pulse Oximetry 99 97 100 Oxygen Delivery Method Room Air VITAL SIGNS - Vital signs and nursing notes were reviewed. Stable and afebrile. GENERAL -25-year-old female appearing her stated age who is in no acute distress but appears uncomfortably in pain. Communicates well with provider and answers questions appropriately. SKIN - Without rashes. HEAD - NC/AT. LUNGS - Chest wall symmetric without accessory muscle use, intercostals retractions, or central cyanosis. Normal vesicular breath sounds CTA B/L. No whe ezes, rales, or rhonchi appreciated. CARDIAC - RRR with S1/S2. No murmur, rubs, or gallops appreciated. ABDOMEN - Abdominal contour normal without pulsations or visible masses. BS normoactive all four quadrants. No tenderness, palpable masses, hepatosplenomegaly, or ascites noted. NEUROLOGIC - Cranial nerves II through XII grossly intact. Sensory intact to light touch throughout. PSYCH - A&O, and cooperates fully with examiner. Pt is very pleasant and interacts well with examiner. Course Administered Medications Hydromorphone HCl (Hydromorphone Inj 1 Mg/Ml Syringe) 1 mg IV Q4H PRN PRN Reason: Pain Stop: 03/22/21 09:40 Last Admin: 03/09/21 04:13 Dose: 1 mg Documented by: [id number] Admin: 03/09/21 00:18 Dose: 1 mg Documented by: [id number] Admin: 03/08/21 20:21 Dose: 1 mg Documented by: [id number] Admin: 03/08/21 15:51 Dose: 1 mg Documented by: [id number] Admin: 03/08/21 11:17 Dose: 1 mg Documented by: [id number] Hydroxyzine HCl (Hydroxyzine Hcl 25 Mg Tab) 25 mg PO DAILY PRN PRN Reason: Anxiety Stop: 04/07/21 09:40 Last Admin: 03/09/21 02:31 Dose: 25 mg Documented by: [id number] Sodium Chloride (Nss 1000ml) 1,000 mls @ 125 mls/hr IV .Q8H HAM Stop: 04/07/21 09:40 Last Admin: 03/09/21 02:27 Dose: 125 mls/hr Documented by: [id number] Infusion: 03/09/21 02:25 Dose: 125 mls/hr Documented by: [id number] Admin: 03/08/21 18:25 Dose: 125 mls/hr Documented by: [id number] Infusion: 03/08/21 18:14 Dose: 125 mls/hr Documented by: [id number] Infusion: 03/08/21 14:35 Dose: 125 mls/hr Documented by: [id number] Admin: 03/08/21 10:13 Dose: 125 mls/hr Documented by: [id number] Ondansetron HCl (Ondansetron Inj 2 Mg/Ml 2 Ml Vial) 4 mg IV Q6H PRN PRN Reason: Nausea Stop: 04/07/21 09:40 Last Admin: 03/09/21 00:18 Dose: 4 mg Documented by: [id number] Admin: 03/08/21 13:12 Dose: 4 mg Documented by: [id number] Discontinued Medications Hydromorphone HCl (Hydromorphone Inj 0.5 Mg/0.5 Ml Syr) 0.5 mg IV Q30M PRN PRN Reason: Pain Stop: 03/22/21 06:30 Last Admin: 03/08/21 09:08 Dose: 0.5 mg Documented by: [id number] Admin: 03/08/21 07:26 Dose: 0.5 mg Documented by: [id number] Admin: 03/08/21 06:35 Dose: 0.5 mg Documented by: [id number] Sodium Chloride (Nss 1000ml) 1,000 mls @ 999 mls/hr IV .Q1H1M HAM Stop: 03/08/21 06:00 Last Infusion: 03/08/21 06:36 Dose: 0 mls/hr Documented by: [id number] Admin: 03/08/21 04:59 Dose: 999 mls/hr Documented by: [id number] Promethazine HCl (Phenergan) 12.5 mg in 50.5 mls @ 202 mls/hr IV NOW STA Stop: 03/08/21 08:23 Last Infusion: 03/08/21 08:47 Dose: 0 mls/hr Documented by: [id number] Admin: 03/08/21 08:32 Dose: 202 mls/hr Documented by: [id number] Promethazine HCl 12.5 mg/ (Sodium Chloride) 50.5 mls @ 202 mls/hr IV NOW STA Stop: 03/08/21 18:45 Last Infusion: 03/08/21 19:05 Dose: 0 mls/hr Documented by: [id number] Admin: 03/08/21 18:45 Dose: 202 mls/hr Documented by: [id number] Ketorolac Tromethamine (Ketorolac Tromethamine 15 Mg/Ml Vial) 15 mg IV NOW STA Stop: 03/08/21 04:56 Last Admin: 03/08/21 04:59 Dose: 15 mg Documented by: [id number] Morphine Sulfate (Morphine Sulfate 4 Mg/Ml 1 Ml Carp\\Vial) 4 mg IV NOW STA Stop: 03/08/21 04:56 Last Admin: 03/08/21 04:59 Dose: 4 mg Documented by: [id number] Morphine Sulfate (Morphine Sulfate 4 Mg/Ml 1 Ml Carp\\Vial) 4 mg IV Q30M PRN PRN Reason: pain Stop: 03/22/21 05:02 Last Admin: 03/08/21 05:34 Dose: 4 mg Documented by: [id number] Ondansetron HCl (Ondansetron Inj 2 Mg/Ml 2 Ml Vial) 4 mg IV NOW STA Stop: 03/08/21 04:56 Last Admin: 03/08/21 04:59 Dose: 4 mg Documented by: [id number] Ondansetron HCl (Ondansetron Inj 2 Mg/Ml 2 Ml Vial) 4 mg IV NOW STA Stop: 03/08/21 06:32 Last Admin: 03/08/21 06:35 Dose: 4 mg Documented by: [id number] Medical Decision Making Laboratory Data Result diagrams: 03/08/21 05:00 03/08/21 05:00 Lab Results 03/08/21 03/08/21 03/08/21 Range/Units 05:00 05:00 05:00 WBC 6.94 (4.8-10.8) K/uL RBC 4.47 (4.2-5.4) M/uL Hgb 13.2 (12.0-16.0) g/dL Hct 39.2 (37-47) % MCV 87.7 (80-100) fL MCH 29.5 (25-34) pg MCHC 33.7 (32-36) g/dL RDW Std Deviation 40.3 (36.4-46.3) fL RDW Coeff of Baldo 12.5 (11.5-14.5) % Plt Count 235 (130-400) K/uL MPV 10.2 (7.4-10.4) fL Immature Gran % (Auto) 0.0 % Neut % (Auto) 47.9 % Lymph % (Auto) 41.5 % Benzie % (Auto) 9.1 % Eos % (Auto) 1.2 % Baso % (Auto) 0.3 % Neut # (Auto) 3.33 (1.4-6.5) K/uL Lymph # (Auto) 2.88 (1.2-3.4) K/uL Benzie # (Auto) 0.63 H (0.11-0.59) K/uL Eos # (Auto) 0.08 (0-0.5) K/uL Baso # (Auto) 0.02 (0-0.2) K/uL Immature Gran # (Auto) 0.00 (0.00-0.02) K/uL Sodium 140 (136-145) mmol/L Potassium 4.4 (3.5-5.1) mmol/L Chloride 110 H (98-107) mmol/L Carbon Dioxide 25 (21-32) mmol/L Anion Gap 5.0 (3-11) BUN 9 (7-18) mg/dl Creatinine 0.66 (0.6-1.2) mg/dl Est Cr Clr Drug Dosing 130.2 ml/min Est GFR ( Amer) 141.3 ml/min Est GFR (Non-Af Amer) 121.9 ml/min BUN/Creatinine Ratio 13.8 (10-20) Glucose 102 H (70-99) mg/dl Calcium 8.5 (8.5-10.1) mg/dl Total Bilirubin 0.3 (0.2-1) mg/dl AST 15 (15-37) U/L ALT 19 (12-78) U/L Alkaline Phosphatase 76 (45-117) U/L Total Protein 7.4 (6.4-8.2) gm/dl Albumin 3.5 (3.4-5.0) gm/dl Globulin 3.9 (2.5-4.0) gm/dl Albumin/Globulin Ratio 0.9 (0.9-2) Specimen Hemolysis Urine Color Red Urine Appearance Turbid A (Clear) Urine pH 6.0 (4.5-7.5) Ur Specific Somers 1.018 (1.000-1.030) Urine Protein 1+ H (Negative) Urine Glucose (UA) Negative (Negative) Urine Ketones Negative (Negative) Urine Blood 3+ H (Negative) Urine Nitrite Negative (Negative) Urine Bilirubin Negative (Negative) Urine Urobilinogen Negative (Negative) Ur Leukocyte Esterase Negative (Negative) Urine WBC (Auto) 5-10 H (0-5) /hpf Urine RBC (Auto) >30 H (0-4) /hpf U Hyaline Cast (Auto) 5-10 H (0-5) /lpf U Epithel Cells (Auto) >30 H (0-5) /lpf Urine Bacteria (Auto) Negative (Negative) POC Ur Test (NEG) COVID-19 Eval Order SARS-CoV-2 (PCR) (Negative) 03/08/21 03/08/21 03/08/21 Range/Units 05:00 07:30 07:30 WBC (4.8-10.8) K/uL RBC (4.2-5.4) M/uL Hgb (12.0-16.0) g/dL Hct (37-47) % MCV (80-100) fL MCH (25-34) pg MCHC (32-36) g/dL RDW Std Deviation (36.4-46.3) fL RDW Coeff of Baldo (11.5-14.5) % Plt Count (130-400) K/uL MPV (7.4-10.4) fL Immature Gran % (Auto) % Neut % (Auto) % Lymph % (Auto) % Benzie % (Auto) % Eos % (Auto) % Baso % (Auto) % Neut # (Auto) (1.4-6.5) K/uL Lymph # (Auto) (1.2-3.4) K/uL Benzie # (Auto) (0.11-0.59) K/uL Eos # (Auto) (0-0.5) K/uL Baso # (Auto) (0-0.2) K/uL Immature Gran # (Auto) (0.00-0.02) K/uL Sodium (136-145) mmol/L Potassium (3.5-5.1) mmol/L Chloride (98-107) mmol/L Carbon Dioxide (21-32) mmol/L Anion Gap (3-11) BUN (7-18) mg/dl Creatinine (0.6-1.2) mg/dl Est Cr Clr Drug Dosing ml/min Est GFR ( Amer) ml/min Est GFR (Non-Af Amer) ml/min BUN/Creatinine Ratio (10-20) Glucose (70-99) mg/dl Calcium (8.5-10.1) mg/dl Total Bilirubin (0.2-1) mg/dl AST (15-37) U/L ALT (12-78) U/L Alkaline Phosphatase (45-117) U/L Total Protein (6.4-8.2) gm/dl Albumin (3.4-5.0) gm/dl Globulin (2.5-4.0) gm/dl Albumin/Globulin Ratio (0.9-2) Specimen Hemolysis Urine Color Urine Appearance (Clear) Urine pH (4.5-7.5) Ur Specific Somers (1.000-1.030) Urine Protein (Negative) Urine Glucose (UA) (Negative) Urine Ketones (Negative) Urine Blood (Negative) Urine Nitrite (Negative) Urine Bilirubin (Negative) Urine Urobilinogen (Negative) Ur Leukocyte Esterase (Negative) Urine WBC (Auto) (0-5) /hpf Urine RBC (Auto) (0-4) /hpf U Hyaline Cast (Auto) (0-5) /lpf U Epithel Cells (Auto) (0-5) /lpf Urine Bacteria (Auto) (Negative) POC Ur Test NEG (NEG) COVID-19 Eval Order Covid19 at [facility] SARS-CoV-2 (PCR) NEGATIVE (Negative) Imaging Data Radiologist's Impression: US RENAL: Compared to CT 12/15/20. Right bladder jet not visualized with findings suggestive of possible calculus at the right UVJ. No significant hydronephrosis. A 4 mm echogenic focus in the right kidney, possible nonobstructing calculus. Radiologist: Ximena Yao M.D. Study ready at 06:50 and initial results transmitted at 06:55 MDM Narrative Patient was seen and evaluated as above in room C04. Review was performed of nursing notes and vital signs. I did review pertinent previous visits and patient history. After obtaining a thorough history and physical examination the above work up was performed. Patient has a well-documented history of renal calculi. Patient was seen in the emergency department in November of this year for left-sided renal calculi and was subsequently admitted for urology procedure. Patient was doing well in the postoperative setting. I did review her urology visit. Patient also had a CT scan of abd/pelvis performed in early December of this year that showed "possibly 4 nonobstructing calculi of the right kidney measuring up to 3 mm. There are at least 2 nonobstructing calculi of the left kidney measuring up to 2 mm with number of left renal calculi decreased from comparison." Options of care were discussed with the patient. IV access was established. Labs were drawn. Patient does appear to be in pain and did have similar symptoms with a previous stone. She was given IV fluids, IV Zofran, IV morphine and IV Toradol. She was reevaluated with improvement. As needed morphine was ordered. No leukocytosis or concerning anemia. No emergent metabolic disturbance. No kidney or liver failure. Urinalysis reveals blood but we will also note the patient is currently menstruating. There is 5-10 white blood cells, greater than 30 red blood cells, 5-10 hyaline casts and greater than 30 epithelial cells. Negative bacteria. Negative test. This is likely a contaminated sample and I do not suspect infection. Patient does not have any infectious symptoms on examination. In an effort to minimize radiation and noting that she did have a CT scan just over 2 months ago in December of this year I will proceed with a KUB as well as an ultrasound. KUB did not reveal any distinct renal calculi per my interpretation. Upon patient returning from the ultrasound suite there was a sharp increase of pain. I did change from as needed morphine to as needed Dilaudid. She also felt nausea returned therefore was given another 4 mg of IV Zofran. She was reevaluated with tremendous improvement. At this time we are awaiting the ultrasound result. Do not suspect torsion. Given the large amount of analgesics required to manage pain I did add on a Covid swab in the event the patient requires admission. Ultrasound results as above. Case signed out to Joss Vazquez PA-C pending reassessment and determining pain control. Case was discussed with the attending physician. GCS: 15 In the evaluation and treatment of this patient the following differential russell gnoses were entertained: UTI, pyelonephritis, kidney stone, hydronephrosis, ovarian torsion, PID, appendicitis, bowel obstruction, strain, sprain, among others. Impression & Plan Right flank pain, History of renal calculi, Hematuria Discharge Plan Visit Data Chief Complaint: Flank Pain Stated Complaint: RT FLANK PAIN TO GROIN ED Provider: Rey Noel ED Midlevel Provider: Joss Vazquez Discharge Problem: Right flank pain, History of renal calculi, Hematuria Patient Disposition: Admitted As Inpatient Discharge Instructions Interventions: ED Discharge Assessment Last Done: 03/08/21 09:33
[2021-03-08] MEDS ORDERED: SODIUM CHLORIDE 0.9% 1000ML 1,000 ML IV SCH (05:00)
[2021-03-08] MEDS ORDERED: MoRPHine SULFATE 4 MG/ML 1 ML CARP\\VIAL IV PRN (05:03)
[2021-03-08 05:11] LABS: Basophils # (auto) 0.02 K/uL (0-0.2); Basophils % (auto) 0.3 %; Eosinophils # (auto) 0.08 K/uL (0-0.5); Eosinophils % (auto) 1.2 %; Hematocrit (blood only) 39.2 % (37-47); Hemoglobin 13.2 g/dL (12.0-16.0); Lymphocytes # (auto) 2.88 K/uL (1.2-3.4); Lymphocytes % (auto) 41.5 %; Mean Corpuscular Hemoglobin 29.5 pg (25-34); Mean Corpuscular Hgb Conc 33.7 g/dL (32-36); Mean Corpuscular Volume 87.7 fL (80-100); Mean Platelet Volume 10.2 fL (7.4-10.4); Monocytes # (auto) 0.63 K/uL (0.11-0.59); Monocytes % (auto) 9.1 %; Neutrophils # (auto) 3.33 K/uL (1.4-6.5); Neutrophils % (auto) 47.9 %; Platelet Count 235 K/uL (130-400); RDW Coefficient of Variation 12.5 % (11.5-14.5); RDW Standard Deviation 40.3 fL (36.4-46.3); Red Blood Count 4.47 M/uL (4.2-5.4); White Blood Count 6.94 K/uL (4.8-10.8)
[2021-03-08 05:40] LABS: Bacteria Urine Automated Negative (Negative); Bilirubin Urine Negative (Negative); Blood Urine 3+ (Negative); Epithelial Cell Urine Auto >30 /lpf (0-5); Glucose Urine UA Negative (Negative); Ketones Urine Negative (Negative); Leukocyte Esterase Urine Negative (Negative); Nitrite Urine Negative (Negative); Protein Urine 1+ (Negative); RBC Urine Automated >30 /hpf (0-4); Specific Gravity Urine 1.018 (1.000-1.030); Urobilinogen Urine Negative (Negative)
[2021-03-08 05:42] LABS: Appearance Urine Turbid (Clear); Color Urine Red
[2021-03-08 05:44] LABS: Albumin Globulin Ratio 0.9 (0.9-2); Albumin Level 3.5 gm/dl (3.4-5.0); BUN Creatinine Ratio 13.8 (10-20); Bilirubin,Total 0.3 mg/dl (0.2-1); Calcium 8.5 mg/dl (8.5-10.1); Creatinine Clr Calc Pharmacy 130.2 ml/min; Est GFR (African American) 141.3 ml/min; Est GFR (Non-African American) 121.9 ml/min; Globulin 3.9 gm/dl (2.5-4.0); Total Protein 7.4 gm/dl (6.4-8.2)
[2021-03-08 05:53] LABS: Potassium 4.4 mmol/L (3.5-5.1)
[2021-03-08] MEDS: HYDROmorphone INJ 0.5 MG/0.5 ML SYR IV PRN ×3 (06:35→09:08)
[2021-03-08] MEDS ORDERED: PROMETHAZINE 12.5 MG/50.5 ML BAG IV STA (08:09)
--- NOTE | 2021-03-08 08:19 | Emergency Department Note ---
ED Visit Note 25-year-old female whose care was transferred to ct from [facility] at change of shift. Patient presented to the emergency department with complaint of right flank/lower quadrant abdominal pain radiating into the vaginal region. Patient reports that the pain feels like a kidney stone, of which she had a recent left distal ureteral calculus that required intervention by [facility]. At the time of transfer of care, the patient was receiving additional analgesics and antiemetics, with a determination whether the patient could be sent home, or would need to be reevaluated by the hospitalist/urology service for further management. [place] ultrasound reading indicated absence of a right ureteral jet, suggestive of a possible right UVJ calculus. No significant hydronephrosis was noted. The ultrasound report, as well as a KUB x-ray, was read by our local radiologist, suggesting a 4 mm right UVJ calculus. The distal ureteral calculus could not be seen on KUB x-rays. Remaining labs are otherwise unremarkable without evidence for acute kidney injury or UTI. After approximately 1 hour, the patient was reassessed, reporting marginal pain control, and persistent and significant nausea. The patient was administered IV Phenergan. At this point, I did discuss the case further with [facility], who agreed to wait on noncontrast CT imaging at this point. The case will be discussed with Dr. Guzman. They have requested hospitalist evaluation and admission. The case was then discussed with the [facility] hospitalist service, who evaluated the patient. Please see hospitalist and urology dictations for further treatment and final disposition. DIAGNOSIS: 1. Right distal ureteral calculus 2. Right nephrolithiasis .
--- NOTE | 2021-03-08 09:56 | XRay Report ---
KUB HISTORY: R flank pain, hx stones COMPARISON: Abdomen and pelvis CT 12/15/2020. FINDINGS: The bowel gas pattern is unremarkable. There are no dilated loops of small bowel to suggest an obstruction. The renal shadows are obscured by overlying bowel gas. The patient's known renal ca lculi are not identified by this modality. No ureteral calculi. No pneumoperitoneum or pneumatosis. IMPRESSION: No renal or ureteral calculi identified by conventional radiographic technique. ACT 112: Negative or not required by law. Electronically signed by: Triston Castillo M.D. 03/08/2021 9:54 AM
--- NOTE | 2021-03-08 09:59 | History & Physical Report ---
Date of Service March 08, 2021 Assessment & Plan (1) Ureteral calculus, right: Damaris is a healthy 25-year-old female with a history of Hyperthyroidism, GERD, Depression, Anxiety, Migraine Headaches, and Nephrolithiasis who presents acutely to [facility] ER today complaining of sudden onset severe right flank that radiates to her right groin and right vagina. The pain is colicky and severe. It woke her from sleep at 0330 this morning. She has associated some associated nausea but has not vomited. Antiemetics given in the ER have been effective for suppressing her nausea. Renal ultrasound done today shows a 4 mm stone within the right ureterovesical junction resulting in mild fullness of the distal right ureter without glenda hydronephrosis. she also has 3+ blood in her urine. She does not appear to be infected at this point. Her white blood cell count is within normal limits, urine was negative for leukocyte esterase and urine nitrites, and she is afebrile. In the past, the composition of her kidney stone in November 2020 was 80% calcium oxalate, 10% carbonate apatite, and 10% uric acid. -- Admit to Med-Surg on Observation Status. -- IVF to increase urine output. -- Consult Urology, Dr. Guzman. -- IV Dilaudid for pain control. -- Zofran as needed for nausea/vomiting. (2) History of renal calculi: -- As outlined above. (3) MARCOS (generalized anxiety disorder): Well controlled. -- Continue Citalopram 20 mg daily. -- Continue Hydroxyzine 25 mg daily as needed. Admission and Anticipated Discharge Date Admission Date: March 08, 2021 History of Present Illness Chief Complaint: -- Nephrolithiasis. -- Right Ureteral Colic. Primary Care Provider: Luisa Roldan MD Damaris is a healthy 25-year-old female with a history of Hyperthyroidism, GERD, Depression, Anxiety, Migraine Headaches, and Nephrolithiasis who presents acutely to [facility] ER today complaining of sudden onset severe right flank that radiates to her right groin and right vagina. The pain is colicky and severe. It woke her from sleep at 0330 this morning. She has associated some associated nausea but has not vomited. Antiemetics given in the ER have been effective for suppressing her nausea. Patient denies any fevers, chills, or dysuria. Patient has been given IV fluids, IV Dilaudid, and IV Zofran in the ER. Her pain is controlled at this time. Patient denies any cough, sputum production, loss of sense of taste, loss of sense of smell, or any symptoms concerning for coronavirus. She denies being . Patient was hospitalized in November 2020 with nephrolithiasis. Stone analysis at that time showed the composition of her kidney stone being 80% calcium oxalate, 10% carbonate apatite, and 10% uric acid. Patient offers no other complaints or concerns. Allergies Allergy/AdvReac Type Severity Reaction Status Date / Time No Known Allergies Allergy Verified 03/08/21 08:16 Home Medications Medication Instructions Recorded Confirmed Type aluminum chloride 20 % topical 1 applic TOPICAL .COMPLEX #35 ml 01/12/21 03/08/21 Rx solution citalopram 20 mg PO QAM 03/08/21 03/08/21 History hydroxyzine pamoate [Vistaril] 25 mg PO DAILY PRN 03/08/21 03/08/21 History Past Med/Surg History Medical History Anxiety Depression Dysuria GERD (gastroesophageal reflux disease) On occasions Hyperthyroidism Not on any medication LLQ abdominal pain Low TSH level Migraine Ovarian cyst Palpitations Pyelonephritis Ureteral calculus, left Vitamin D deficiency Surgical History Nasal fracture Repair of nasal fracture S/P cystoscopy with ureteral stent placement 12/05/20 Dr. Lamont Ambrose- Cystoscopy, Left ureteroscopy, Laser lithotripsy, Stone basket extraction of stone, Left retrograde pyelogram, Left ureteral stent placement Family History Mother Breast cancer Other Cancer Hypertension Kidney stones Denies family history of Ovarian cancer Prostate cancer Heart disease Myocardial infarction Colorectal cancer Social History Smoking Status: Never smoker Second Hand Exposure: No; Do You Dip or Chew Tobacco: No; Hx Alcohol Use: Yes Alcohol type: wine and hard liquor Hx Substance Use: No Preferred Language: Sierra Leonean Communication Ability: Effective Visual Impairment: No Limitations Hearing Ability: Normal 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 Beliefs That Will Affect Care: None marital status: Single Current Living Situation: Parent Current Living Situation Comment: lives with parents and child current occupational status: employed Other Information That Helps Us Care for You: No Feels Safe at Home: Yes Safety Concerns: Feels Safe At This Time Childhood Exposure to Second-Hand Smoke: No Physical Activity Frequency: Daily Seatbelt Use: always Sunscreen Use: Yes Assistive Devices: None Review of Systems Review of Systems: All systems reviewed & are unremarkable except as noted in HPI & below Physical Exam Physical Exam: GENERAL: Patient is being seen in room 322. She is in no acute distress. HEENT: Head is atraumatic, normocephalic. Sclerae anicteric. EOM's intact. Facies symmetric. No perioral cyanosis. NECK: No JVD. JVP is not elevated. Carotid upstrokes are + 2 bilaterally. CHEST/LUNGS: Clear to auscultation throughout all lung good. No wheezes, rales, or crackles. CVS: S1 and S2 are regular without obvious murmurs, gallops, or rubs. No abdominal aortic or renal bruits. ABDOMINAL EXAM: Bowel sounds are present. No masses or organomegaly. No focal tenderness, CVA's non-tender to jarring. No guarding, rigidity, or rebound tenderness. EXTREMITIES: No clubbing or cyanosis. No edema. Intact posterior tibial and radial pulses bilaterally. NEUROLOGIC EXAM: Patient is awake, alert, and oriented. Pleasant and cooperative. Answers questions appropriately. Speech is clear. Normal movement in all 4 extremities. Gait pattern is unremarkable. Urine Analysis as shown below. Negative for urine bacteria. +3 blood. Negative for urine nitrite, negative for leukocyte esterase. Results & Data Results & Data ([facility]) Vital Signs (Past 12 Hours) Vital Signs Temp Pulse Pulse Pulse Resp BP BP 03/08/21 09:42 36.4 C L 63 18 121/79 03/08/21 09:32 71 18 111/62 03/08/21 09:30 75 14 03/08/21 09:09 66 17 125/87 03/08/21 09:00 73 15 03/08/21 08:37 62 18 107/81 03/08/21 08:30 83 13 106/77 03/08/21 08:00 90 12 107/81 03/08/21 07:30 81 16 130/85 03/08/21 07:00 72 14 108/77 03/08/21 06:37 73 16 128/79 03/08/21 05:32 90 17 03/08/21 05:02 95 H 20 03/08/21 05:01 87 22 117/93 03/08/21 05:00 95 H 24 03/08/21 04:55 107 H 19 03/08/21 04:52 109 H 18 127/98 03/08/21 04:45 36.6 C 99 H 18 138/92 Pulse Ox 03/08/21 09:42 99 03/08/21 09:32 100 03/08/21 09:30 99 03/08/21 09:09 100 03/08/21 09:00 100 03/08/21 08:37 97 03/08/21 08:30 99 03/08/21 08:00 98 03/08/21 07:30 98 03/08/21 07:00 98 03/08/21 06:37 99 03/08/21 05:32 99 03/08/21 05:02 99 03/08/21 05:01 99 03/08/21 05:00 99 03/08/21 04:55 99 03/08/21 04:52 99 03/08/21 04:45 99 Laboratory Results Laboratory Results - last 24 hr 03/08/21 03/08/21 03/08/21 05:00 05:00 05:00 WBC 6.94 RBC 4.47 Hgb 13.2 Hct 39.2 MCV 87.7 MCH 29.5 MCHC 33.7 RDW Std Deviation 40.3 RDW Coeff of Baldo 12.5 Plt Count 235 MPV 10.2 Immature Gran % (Auto) 0.0 Neut % (Auto) 47.9 Lymph % (Auto) 41.5 Woodson % (Auto) 9.1 Eos % (Auto) 1.2 Baso % (Auto) 0.3 Neut # (Auto) 3.33 Lymph # (Auto) 2.88 Woodson # (Auto) 0.63 H Eos # (Auto) 0.08 Baso # (Auto) 0.02 Immature Gran # (Auto) 0.00 Sodium 140 Potassium 4.4 Chloride 110 H Carbon Dioxide 25 Anion Gap 5.0 BUN 9 Creatinine 0.66 Est Cr Clr Drug Dosing 130.2 Est GFR ( Amer) 141.3 Est GFR (Non-Af Amer) 121.9 BUN/Creatinine Ratio 13.8 Glucose 102 H Calcium 8.5 Total Bilirubin 0.3 AST 15 ALT 19 Alkaline Phosphatase 76 Total Protein 7.4 Albumin 3.5 Globulin 3.9 Albumin/Globulin Ratio 0.9 Specimen Hemolysis Urine Color Red Urine Appearance Turbid A Urine pH 6.0 Ur Specific [place] 1.018 Urine Protein 1+ H Urine Glucose (UA) Negative Urine Ketones Negative Urine Blood 3+ H Urine Nitrite Negative Urine Bilirubin Negative Urine Urobilinogen Negative Ur Leukocyte Esterase Negative Urine WBC (Auto) 5-10 H Urine RBC (Auto) >30 H U Hyaline Cast (Auto) 5-10 H U Epithel Cells (Auto) >30 H Urine Bacteria (Auto) Negative POC Ur Test COVID-19 Eval Order SARS-CoV-2 (PCR) 03/08/21 03/08/21 03/08/21 05:00 07:30 07:30 WBC RBC Hgb Hct MCV MCH MCHC RDW Std Deviation RDW Coeff of Baldo Plt Count MPV Immature Gran % (Auto) Neut % (Auto) Lymph % (Auto) Woodson % (Auto) Eos % (Auto) Baso % (Auto) Neut # (Auto) Lymph # (Auto) Woodson # (Auto) Eos # (Auto) Baso # (Auto) Immature Gran # (Auto) Sodium Potassium Chloride Carbon Dioxide Anion Gap BUN Creatinine Est Cr Clr Drug Dosing Est GFR ( Amer) Est GFR (Non-Af Amer) BUN/Creatinine Ratio Glucose Calcium Total Bilirubin AST ALT Alkaline Phosphatase Total Protein Albumin Globulin Albumin/Globulin Ratio Specimen Hemolysis Urine Color Urine Appearance Urine pH Ur Specific [place] Urine Protein Urine Glucose (UA) Urine Ketones Urine Blood Urine Nitrite Urine Bilirubin Urine Urobilinogen Ur Leukocyte Esterase Urine WBC (Auto) Urine RBC (Auto) U Hyaline Cast (Auto) U Epithel Cells (Auto) Urine Bacteria (Auto) POC Ur Test NEG COVID-19 Eval Order Covid19 at [facility] SARS-CoV-2 (PCR) NEGATIVE Diagnostic Findings RENAL ULTRASOUND 03/08/21: Right kidney: 11.3 cm. No hydronephrosis. There is a 4 mm stone within the lower pole. There appears to be of 4 mm stone within the right ureterovesical j unction with mild fullness within the distal right ureter. The right ureteral jet was not identified during the examination. Left kidney: 11.8 cm. No hydronephrosis. Normal corticomedullary differentiation and cortical thickness. Bladder: No bladder wall thickening. Only the left ureteral jet was identified. IMPRESSION: 1. There appears to be a 4 mm stone within the right ureterovesical junction resulting in mild fullness of the distal right ureter without glenda hydronephrosis. The right ureteral jet was identified during the examination. 2. Normal left kidney. 3. Right-sided nephrolithiasis. KUB 03/08/21: The bowel gas pattern is unremarkable. There are no dilated loops of small bowel to suggest an obstruction. The renal shadows are obscured by overlying bowel gas. The patient's known renal calculi are not identified by this modality. No ureteral calculi. No pneumoperitoneum or pneumatosis. IMPRESSION: -- No renal or ureteral calculi identified by conventional radiographic techniqu e. Medications Administered Medications aluminum chloride 20 % topical solution 1 applic TOPICAL .COMPLEX #35 ml 01/12/21 [Rx Confirmed 03/08/21] citalopram 20 mg PO QAM 03/08/21 [History Confirmed 03/08/21] hydroxyzine pamoate [Vistaril] 25 mg PO DAILY PRN 03/08/21 [History Confirmed 03/08/21] Home Medications Citalopram Hydrobromide (Citalopram 20 Mg Tab) 20 mg PO QAM HAM Stop: 04/08/21 08:59 Hydromorphone HCl (Hydromorphone Inj 1 Mg/Ml Syringe) 1 mg IV Q4H PRN PRN Reason: Pain Stop: 03/22/21 09:40 Hydroxyzine HCl (Hydroxyzine Hcl 25 Mg Tab) 25 mg PO DAILY PRN PRN Reason: Anxiety Stop: 04/07/21 09:40 Sodium Chloride (Nss 1000ml) 1,000 mls @ 125 mls/hr IV .Q8H HAM Stop: 04/07/21 09:40 Ondansetron HCl (Ondansetron Inj 2 Mg/Ml 2 Ml Vial) 4 mg IV Q6H PRN PRN Reason: Nausea Stop: 04/07/21 09:40 Code Status & VTE Plan Code Status Full Code VTE Prophylaxis Plan VTE Prophylaxis will be ordered: No Supervising Physician Co-Signing Physician Notes Patient seen and examined with Chris SEYMOUR. I agree with his exam findings, review of systems, assessment and plan. I personally reviewed the lab work and imaging as well. d/w urology, got CT that shows 3mm stone likely in bladder lumen still with pain and nausea at times, responded well to Dilaudid and Phenergan - Ureteral stone: pain control, aggressive IV fluids, consult urology for recommendations likely conservative care no signs of obstruction, infection PG Care Time/CCT Total # of Minutes Spent Total Time Spent with Patient: Total time spent is greater than 50% in coordination of care (as documented) at patient's floor/unit and/or counseling patient:25 Coding Level of Care Code 79332 OBS Care - Level 3 Diagnoses Ureteral calculus, right N20.1 History of renal calculi Z87.442 MARCOS (generalized anxiety disorder) F41.1 Time Spent (min) 40
--- NOTE | 2021-03-08 10:03 | Ultrasound Report ---
RENAL ULTRASOUND HISTORY: R flank pain, hx stones COMPARISON: Abdomen and pelvis CT 12/15/2020. FINDINGS: Right kidney: 11.3 cm. No hydronephrosis. There is a 4 mm stone within the lower pole. There appears to be of 4 mm stone within the right ureterovesical junction with mild fullness within the distal rig ht ureter. The right ureteral jet was not identified during the examination. Left kidney: 11.8 cm. No hydronephrosis. Normal corticomedullary differentiation and cortical thickne ss. Bladder: No bladder wall thickening. Only the left ureteral jet was identified. IMPRESSION: 1. There appears to be a 4 mm stone within the right ureterovesical junction resulting in mild fullne ss of the distal right ureter without glenda hydronephrosis. The right ureteral jet was identified dur ing the examination. 2. Normal left kidney. 3. Right-sided nephrolithiasis. ACT 112: Negative or not required by law. Electronically signed by: Triston Castillo M.D. 03/08/2021 10:01 AM
[2021-03-08] MEDS: SODIUM CHLORIDE 0.9% 1000ML 1,000 ML IV SCH ×2 (10:13→18:25)
[2021-03-08] MEDS: HYDROmorphone INJ 1 MG/ML SYRINGE IV PRN ×3 (11:17→20:21)
--- NOTE | 2021-03-08 11:25 | CT Scan Report ---
CT SCAN OF THE ABDOMEN AND PELVIS WITHOUT CONTRAST CLINICAL HISTORY: ureteral stone evaluation COMPARISON STUDY: December 15, 2020 TECHNIQUE: CT scan of the abdomen and pelvis was performed from the lung bases to the proximal femurs . Images are reviewed in the axial, sagittal, and coronal planes. IV contrast was not administered fo r this examination. A dose lowering technique was utilized adhering to the principles of ALARA. CT DOSE: 539.11 mGy.cm FINDINGS: Lower chest: No evidence of acute abnormalities. Liver: The unenhanced liver is normal in size, contour, and attenuation. There is no intrahepatic lefty iary ductal dilatation. Gallbladder: Unremarkable. Spleen: Normal in size and attenuation. Pancreas: Unremarkable. Adrenal glands: Unremarkable. Kidneys: The unenhanced kidneys are normal in size without hydronephrosis. There is no contour deform ing renal mass lesion. Few punctate calculi are seen within bilateral renal pelvises. 3 mm calculus a re seen within urinary bladder lumen near right urethrovesical junction likely representing passed st one. No definite hydroureter is seen. Urinary bladder is adequately filled with urine. Uterus and adnexa appear to be normal on this nondedicated exam. Bowel: The small bowel and colon are normal in course and caliber. Appendix shows normal morphology a nd gas filled. Peritoneum: There is no intraperitoneal free air or abdominal ascites. Vasculature: The abdominal aorta is normal in course and caliber. Adenopathy: None. Skeletal structures: No destructive osseous lesions are seen. IMPRESSION: 1. 3 mm calculus within urinary bladder lumen near right ureterovesicular junction likely representi ng possible stone. No evidence of hydronephrosis or hydroureter. Punctate nonobstructive calculi are seen within right and left renal pelvises. ACT 112: Negative or not required by law. The above report was generated using voice recognition software. It may contain grammatical, syntax o r spelling errors. Electronically signed by: Fior Perez DO 03/08/2021 11:24 AM
[2021-03-08] MEDS: ONDANSETRON INJ 2 MG/ML 2 ML VIAL IV PRN (13:12)
--- NOTE | 2021-03-08 14:51 | Urology Consultation ---
Date of Consultation March 08, 2021 Assessment & Plan (1) Ureteral calculus, right: (2) Right flank pain: 25yo F admitted with right renal colic secondary to a 3mm calculus within the bladder lumen near the right UVJ - Hospital course, imaging, labs, and past medical/surgical hx reviewed. - Patient with some improvement in symptoms, no stone passage noted. - CT abdomen pelvis noted a 3 mm calculus within urinary bladder lumen near right UVJ likely representing possible stone. No evidence of hydronephrosis or hydroureter. Bilateral punctate nonobstructive calculi were also noted. - She is afebrile, VSS. - Labs reviewed, Creatinine and Wbc within normal limits. - No acute intervention warranted at this time - Stone passed into bladder, suspect spontaneous passage in the near future. Continue to strain urine. - Recommend continue hydration, tamsulosin, prn antiemetics, and prn analgesia - Ok to have diet - Will continue to follow History of Present Illness Attending Physician: Mati Miguel, History of Present Illness 25yo F admitted with right renal colic secondary to a 3mm calculus within the bladder lumen near the right UVJ PMHx including Hyperthyroidism, GERD, Depression, Anxiety, Migraine Headaches, and Nephrolithiasis The patient presented to the ER with complaints of sudden onset of severe right flank pain radiating to her right groin with associated nausea. The patient states the pain woke her from sleep at 0330 this morning. On presentation, she was afebrile, White count 6.94, Hemoglobin 13.2, creatinine 0.66. Urinalysis 3+blood, >30RBC, 5-10WBC, negative nitrite, negative leukocytes, negative bacteria. She was given antiemetics, IVF, and pain medication in the ER. She was admitted for pain management. Urology consulted for ureteral stone. Patient is well known to the urology service Recent hx of stones requiring surgical intervention Stone composition from Nov 2020 Calcium Oxalate Dihydrate ([place]) 80%, Carbonate Apatite ([place]) 10% and Uric Acid 10%. Family hx of stones- Father KUB IMPRESSION: No renal or ureteral calculi identified by conventional radiographic technique. Renal Ultrasound IMPRESSION: 1. There appears to be a 4 mm stone within the right ureterovesical junction resulting in mild fullness of the distal right ureter without glenda hydronephrosis. The right ureteral jet was identified during the examination. 2. Normal left kidney. 3. Right-sided nephrolithiasis. CT a/p IMPRESSION: 1. 3 mm calculus within urinary bladder lumen near right ureterovesicular junction likely representing possible stone. No evidence of hydronephrosis or hydroureter. Punctate nonobstructive calculi are seen within right and left renal pelvises. Patient examined at bedside this afternoon. Awake, alert, resting in bed on arrival. She reports pain is tolerable at this time. Still with intermittent right flank pain, however improved since admission. She denies fevers or chills. No nausea or vomiting. Denies hematuria and dysuria. Feels she is emptying her bladder without difficulty. She has been NPO and has been straining all urine with no stone passage noted. Patient offers no other complaints or concerns. Allergies Allergy/AdvReac Type Severity Reaction Status Date / Time No Known Allergies Allergy Verified 03/08/21 08:16 Home Medications Medication Instructions Recorded Confirmed Type aluminum chloride 20 % topical 1 applic TOPICAL .COMPLEX #35 ml 01/12/21 03/08/21 Rx solution citalopram 20 mg PO QAM 03/08/21 03/08/21 History hydroxyzine pamoate [Vistaril] 25 mg PO DAILY PRN 03/08/21 03/08/21 History Patient History Medical History Anxiety Depression Dysuria GERD (gastroesophageal reflux disease) On occasions Hyperthyroidism Not on any medication LLQ abdominal pain Low TSH level Migraine Ovarian cyst Palpitations Pyelonephritis Ureteral calculus, left Vitamin D deficiency Surgical History Nasal fracture Repair of nasal fracture S/P cystoscopy with ureteral stent placement 12/05/20 Dr. Lamont Ambrose- Cystoscopy, Left ureteroscopy, Laser lithotripsy, Stone basket extraction of stone, Left retrograde pyelogram, Left ureteral stent placement Family History Mother Breast cancer Other Cancer Hypertension Kidney stones Denies family history of Ovarian cancer Prostate cancer Heart disease Myocardial infarction Colorectal cancer Social History Smoking Status: Never smoker Second Hand Exposure: No; Do You Dip or Chew Tobacco: No; Hx Alcohol Use: Yes Alcohol type: wine and hard liquor Hx Substance Use: No Preferred Language: Algerian Communication Ability: Effective Visual Impairment: No Limitations Hearing Ability: Normal 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 Beliefs That Will Affect Care: None marital status: Single Current Living Situation: Parent Current Living Situation Comment: lives with parents and child current occupational status: employed Other Information That Helps Us Care for You: No Feels Safe at Home: Yes Safety Concerns: Feels Safe At This Time Childhood Exposure to Second-Hand Smoke: No Physical Activity Frequency: Daily Seatbelt Use: always Sunscreen Use: Yes Assistive Devices: None Review of Systems Review of Systems: All systems reviewed & are unremarkable except as noted in HPI & below Physical Exam Constitutional: well developed and well nourished; no acute distress and not ill appearing Neck: normal visual inspection Respiratory: normal respiratory effort and able to speak in complete sentences; no labored breathing and no audible wheezes Cardiovascular: Extremities: no calf tenderness Gastrointestinal (Abdomen): Inspection/Auscultation: abdomen normal to inspection; abdomen not distended Musculoskeletal: Head/Neck/Chest: normocephalic Skin: Warm and dry Neurologic: awake Psychiatric: A+Ox3, euthymic affect Results & Data ([facility]) Vital Signs (Past 12 Hours) Vital Signs Temp Pulse Pulse Pulse Resp BP BP 03/08/21 09:42 36.4 C L 63 18 121/79 03/08/21 09:32 71 18 111/62 03/08/21 09:30 75 14 03/08/21 09:09 66 17 125/87 03/08/21 09:00 73 15 03/08/21 08:37 62 18 107/81 03/08/21 08:30 83 13 106/77 03/08/21 08:00 90 12 107/81 03/08/21 07:30 81 16 130/85 03/08/21 07:00 72 14 108/77 03/08/21 06:37 73 16 128/79 03/08/21 05:32 90 17 03/08/21 05:02 95 H 20 03/08/21 05:01 87 22 117/93 03/08/21 05:00 95 H 24 03/08/21 04:55 107 H 19 03/08/21 04:52 109 H 18 127/98 03/08/21 04:45 36.6 C 99 H 18 138/92 Pulse Ox 03/08/21 09:42 99 03/08/21 09:32 100 03/08/21 09:30 99 03/08/21 09:09 100 03/08/21 09:00 100 03/08/21 08:37 97 03/08/21 08:30 99 03/08/21 08:00 98 03/08/21 07:30 98 03/08/21 07:00 98 03/08/21 06:37 99 03/08/21 05:32 99 03/08/21 05:02 99 03/08/21 05:01 99 03/08/21 05:00 99 03/08/21 04:55 99 03/08/21 04:52 99 03/08/21 04:45 99 PG Care Time/CCT Total # of Minutes Spent Total Time Spent with Patient: Total time spent is greater than 50% in coordination of care (as documented) at patient's floor/unit and/or counseling patient: Coding Level of Care Code 62844 Inpt Consult Level 4 Diagnoses Ureteral calculus, right N20.1 Right flank pain R10.9
[2021-03-08] MEDS ORDERED: PROMETHAZINE HCL 12.5 MG in SODIUM CHLORIDE 0.9% 50 ML IV STA (18:31)
[2021-03-09] MEDS: ONDANSETRON INJ 2 MG/ML 2 ML VIAL IV PRN ×2 (00:18→15:04)
[2021-03-09] MEDS: HYDROmorphone INJ 1 MG/ML SYRINGE IV PRN ×6 (00:18→20:55)
[2021-03-09] MEDS: SODIUM CHLORIDE 0.9% 1000ML 1,000 ML IV SCH ×2 (02:27→12:43)
[2021-03-09] MEDS: hydrOXYzine HCl 25 MG TAB PO PRN ×2 (02:31→21:07)
--- NOTE | 2021-03-09 07:51 | Urology Progress Note ---
Date of Service March 09, 2021 Assessment & Plan (1) Ureteral calculus, right: (2) Right flank pain: 25yo F admitted with right renal colic secondary to a 3 mm calculus within urinary bladder lumen near the right UVJ likely representing passed stone. - CTAP from yesterday noted a 3mm calculus within the urinary bladder lumen near the right UVJ likely representing passed stone; No hydronephrosis. - She remains afebrile, VSS. - No new labs at time of exam this morning. - No stone passage noted overnight. - No intervention warranted at this time. - Continue to strain all urine and monitor for stone passage. - Recommend continue hydration, prn antiemetics, and prn analgesia. Will start tamsulosin this morning. - Patient with reports of dysuria and difficulty urinating per nursing. PVR revealed 511ml. - Recommended straight cath x 1 if unable to void. - Will continue to follow. - Patient straight cathed for 1280ml per nursing. - Urine sent for culture. - Recommend continue to monitor ability to spontaneously void and monitor urine output. - Bladder scan every shift or sooner as needed. - Will continue to follow. Admission and Anticipated Discharge Date Admission Date: March 08, 2021 Supervising Physician Co-Signing Physician Notes Pt unable to void this pm requiring an indwelling callaway . Will reassess and consider a voiding trial in the AM. Kub also im am . If flank pain persists and stone appears at uvj could consider intervention Subjective Pt examined at bedside this AM. Awake, resting in bed on arrival. She reports suprapubic pressure and pain to her right groin/vagina area. Pain controlled with IV pain medication. Her right flank pain has improved. Tolerating PO diet, no vomiting. Still having nausea, managing with IV antiemetics. Voiding spontaneously and straining all urine. No stone passage noted. Some hematuria and dysuria with urination. She also reports some urinary urgency and frequency. No fevers or chills. No dizziness with ambulation. Chart review: Afebrile, VSS. Urine output overnight - 925ml Review of Systems Constitutional: as per Subjective / HPI Gastrointestinal: as per Subjective / HPI Genitourinary: as per Subjective / HPI Physical Exam Constitutional: well developed and well nourished; no acute distress Respiratory: normal respiratory effort and able to speak in complete sentences Gastrointestinal (Abdomen): Percussion/Palpation: + abdomen tender (right groin tenderness with palpation) and abdomen soft; no guarding and abdomen not rigid Skin: Warm and dry Neurologic: awake Psychiatric: A+Ox3, euthymic affect Results & Data ([facility]) Vital Signs (Past 12 Hours) Vital Signs Temp Pulse Resp BP Pulse Ox 03/09/21 07:00 36.8 C 74 18 95/60 L 99 03/08/21 23:10 36.7 C 85 16 118/68 100 PG Care Time/CCT Total # of Minutes Spent Total Time Spent with Patient: Total time spent is greater than 50% in coordination of care (as documented) at patient's floor/unit and/or counseling patient: Coding Level of Care Code 25661 Subseq Hosp Care Lvl 2 Diagnoses Ureteral calculus, right N20.1 Right flank pain R10.9
[2021-03-09] MEDS: CITALOPRAM 20 MG TAB PO SCH (08:25)
[2021-03-09] MEDS: TAMSULOSIN HCL 0.4 MG CAP PO SCH (11:12)
[2021-03-09 12:38] LABS: Appearance Urine Clear (Clear); Bilirubin Urine Negative (Negative); Blood Urine Negative (Negative); Color Urine Yellow; Glucose Urine UA Negative (Negative); Ketones Urine Negative (Negative); Leukocyte Esterase Urine Negative (Negative); Nitrite Urine Negative (Negative); Protein Urine Negative (Negative); Specific Gravity Urine 1.008 (1.000-1.030); Urobilinogen Urine Negative (Negative); pH Urine 6.5 (4.5-7.5)
[2021-03-09] MEDS: ACETAMINOPHEN 325 MG TAB PO PRN (15:27)
[2021-03-09] MEDS ORDERED: PROMETHAZINE HCL 12.5 MG in SODIUM CHLORIDE 0.9% 50 ML IV PRN (17:23)
--- NOTE | 2021-03-09 17:23 | Hospitalist Progress Note ---
Date of Service March 09, 2021 Assessment & Plan (1) Urinary retention: unclear etiology, could be due to Dilaudid? will use Toradol IV instead callaway placed patient tried several times today, could not void, initial straight cath for 1000cc (2) Nausea: Phenergan IV (3) Ureteral calculus, right: stone passed into the bladder on CT yesterday now with pain due to urinary retention will use Toradol for pain, fear that the Dilaudid was causing decreased bladder contraction Flomax 0.4mg added (4) History of renal calculi: stones in the pelvis of kidneys did pass a small 3mm stone into bladder (5) MARCOS (generalized anxiety disorder): Admission and Anticipated Discharge Date Admission Date: March 08, 2021 Subjective patient had a lot of lower abdominal pain today, tried to void, only had 125cc out bladder scanned for 500cc, urology ordered straight cath, RN able to get out 1000cc patient could not void the rest of the day, unsure why, this has never happened before callaway placed, draining clear urine, had some pain relief with draining bladder no fever/chills, no flank pain, no dyspnea, no chest pain does have some nausea, relieved with phenergan has some cramps due to having her menstrual cycle currently labs were all stable, repeat UA with no signs of UTI discussed with RN, will try Toradol for pain, Pyridium as needed, Flomax added Review of Systems Review of Systems: All systems reviewed & are unremarkable except as noted in Subjective Physical Exam Constitutional: well developed, well nourished and comfortable; no acute distress Neck: trachea midline, no thyromegaly Respiratory: normal respiratory effort, lungs clear to auscultation Cardiovascular: RRR, no murmur, no edema Gastrointestinal (Abdomen): normal bowel sounds, soft, nontender, no hepatosplenomegaly Musculoskeletal: no cyanosis or clubbing, extremities motor strength 5/5 Skin: no rashes, warm and dry Neurologic: patellar DTR's 2+ bilat, sensation intact and PERRL, EOMI, accommodation nl, no face palsy, no dysarthria Psychiatric: A+Ox3, euthymic affect Lymphatic: no cervical or axillary lymphadenopathy Results & Data Results & Data ([facility]) Vital Signs (Past 12 Hours) Vital Signs Temp Pulse Resp BP Pulse Ox 03/09/21 16:47 37.2 C 89 20 110/70 99 03/09/21 07:00 36.8 C 74 18 95/60 L 99 Laboratory Results Laboratory Results - last 24 hr 03/09/21 12:16 Urine Color Yellow Urine Appearance Clear Urine pH 6.5 Ur Specific [place] 1.008 Urine Protein Negative Urine Glucose (UA) Negative Urine Ketones Negative Urine Blood Negative Urine Nitrite Negative Urine Bilirubin Negative Urine Urobilinogen Negative Ur Leukocyte Esterase Negative Medications Administered Current Inpatient Medications Acetaminophen (Acetaminophen 325 Mg Tab) 650 mg PO Q4H PRN PRN Reason: Pain Stop: 04/08/21 15:06 Last Admin: 03/09/21 15:27 Dose: 650 mg Documented by: Citalopram Hydrobromide (Citalopram 20 Mg Tab) [facility] [place] Stop: 04/08/21 08:59 Last Admin: 03/09/21 08:25 Dose: Not Given Documented by: Hydromorphone HCl (Hydromorphone Inj 1 Mg/Ml Syringe) 1 mg IV Q4H PRN PRN Reason: Pain Stop: 03/22/21 09:40 Last Admin: 03/09/21 16:42 Dose: 1 mg Documented by: Hydroxyzine HCl (Hydroxyzine Hcl 25 Mg Tab) 25 mg PO DAILY PRN PRN Reason: Anxiety Stop: 04/07/21 09:40 Last Admin: 03/09/21 02:31 Dose: 25 mg Documented by: Ibuprofen (Ibuprofen 600 Mg Tab) 600 mg PO Q6H PRN PRN Reason: Pain Stop: 04/08/21 15:06 Ondansetron HCl (Ondansetron Inj 2 Mg/Ml 2 Ml Vial) 4 mg IV Q6H PRN PRN Reason: Nausea Stop: 04/07/21 09:40 Last Admin: 03/09/21 15:04 Dose: 4 mg Documented by: Phenazopyridine HCl (Phenazopyridine Hcl 100 Mg Tab) 100 mg PO TID PRN PRN Reason: Dysuria Stop: 04/08/21 15:06 Tamsulosin HCl (Tamsulosin Hcl 0.4 Mg Cap) 0.4 mg [facility] [place] Stop: 04/08/21 10:14 Last Admin: 03/09/21 11:12 Dose: 0.4 mg Documented by: PG Care Time/CCT Total # of Minutes Spent Total Time Spent with Patient: Total time spent is greater than 50% in coordination of care (as documented) at patient's floor/unit and/or counseling patient: Coding Level of Care Code 70624 Subseq Hosp Care Lvl 2 Diagnoses Urinary retention R33.9 Nausea R11.0 Ureteral calculus, right N20.1 History of renal calculi Z87.442 MARCOS (generalized anxiety disorder) F41.1
[2021-03-09] MEDS: KETOROLAC TROMETHAMINE 15 MG/ML VIAL IV PRN (18:55)
[2021-03-09] MEDS: IBUPROFEN 600 MG TAB PO PRN (19:45)
[2021-03-09] MEDS: PHENAZOPYRIDINE HCL 100 MG TAB PO PRN (20:55)
[2021-03-10] MEDS: ACETAMINOPHEN 325 MG TAB PO PRN ×2 (05:49→22:21)
[2021-03-10 06:03] LABS: Hematocrit (blood only) 36.6 % (37-47); Hemoglobin 12.3 g/dL (12.0-16.0); Mean Corpuscular Hemoglobin 29.6 pg (25-34); Mean Corpuscular Hgb Conc 33.6 g/dL (32-36); Mean Platelet Volume 10.2 fL (7.4-10.4); Platelet Count 226 K/uL (130-400); RDW Coefficient of Variation 12.7 % (11.5-14.5); RDW Standard Deviation 40.9 fL (36.4-46.3); Red Blood Count 4.16 M/uL (4.2-5.4)
[2021-03-10 06:34] LABS: BUN Creatinine Ratio 15.5 (10-20); Calcium 8.1 mg/dl (8.5-10.1); Creatinine Clr Calc Pharmacy 140.4 ml/min; Est GFR (African American) 144.2 ml/min; Est GFR (Non-African American) 124.4 ml/min; Potassium 3.8 mmol/L (3.5-5.1)
[2021-03-10] MEDS: TAMSULOSIN HCL 0.4 MG CAP PO SCH (08:05)
[2021-03-10] MEDS: PHENAZOPYRIDINE HCL 100 MG TAB PO PRN ×2 (08:05→18:15)
[2021-03-10] MEDS: KETOROLAC TROMETHAMINE 15 MG/ML VIAL IV PRN ×2 (08:06→18:41)
[2021-03-10] MEDS: CITALOPRAM 20 MG TAB PO SCH (08:06)
--- NOTE | 2021-03-10 08:09 | Urology Progress Note ---
Date of Service March 10, 2021 Assessment & Plan (1) Ureteral calculus, right: (2) Urinary retention: 25yo F admitted with right renal colic - CTAP from 03/08 noted a 3mm calculus within the urinary bladder lumen near the right UVJ likely representing passed stone; No hydronephrosis. - Patient unable to void yesterday requiring callaway catheter placement, possibly d/t pain medication. - Callaway catheter removed overnight per patient request due to discomfort. -She voided 400ml this morning. - Patient still with reports of lower abdominal/suprapubic pain. - No stone passage noted at this time. - She remains afebrile, VSS. - Labs reviewed, Wbc and creatinine are stable. - Repeat urinalysis yesterday not suggestive of infection. - Continue to monitor ability to spontaneously void and monitor urine output. Bladder scan as needed. - Strain all urine and monitor for stone passage. - Continue supportive care, pain control, tamsulosin, and pyridium. - KUB this morning to assess for stone given ongoing pain. - Will make NPO in case further intervention is indicated today. - Additional recommendations pending KUB imaging. - Will continue to follow. - KUB imaging reviewed. Plan of care and imaging reviewed with Dr. Booker, on-call urologist. - No stones were visualized on KUB imaging this morning. - Discussed options for acute stone management with cystoscopy, ureteroscopy, possible stone extraction and stent placement depending on findings. - Discussed outpatient options for conservative measures with max expulsion medical therapy and symptom control. - Risks/benefits of each discussed. - Given her ongoing lower abdominal and suprapubic pain as well as no passage of stone noted at this point, she prefers to proceed with Cystoscopy, ureteroscopy, stone treatment and stent placement depending on findings. - Risks and benefits to be reviewed with patient by Dr. Booker. OR notified. Will cover with IV Ciprofloxacin preoperatively. - Expected clinical course reviewed with patient, all questions were answered. - Keep NPO. Strain all urine. - Will continue to follow. ATTENDING NOTE: Patient evaluated, assessed, examined, and consented. Patient with stone, pelvic pain, and discomfort. History of small stones with significant issues and inability to pass stones. Risks and benefits discussed at length for procedure. These include bleeding, infection, injury to surrounding tissues or organs, and risks associated with anesthesia. Patient states understanding and agrees to proceed. Will sign consent and proceed. Plan to set up cystoscopy with possible right ureteroscopy, stone treatment, and/or stent. Admission and Anticipated Discharge Date Admission Date: March 09, 2021 Subjective Pt examined at bedside this AM. Awake, resting in bed on arrival. Continues with lower abdominal/suprapubic discomfort, managing with IV Toradol and PO Tylenol. Straining all urine, no stone passage noted. Callaway catheter placed yesterday as pt unable to void - Removed overnight per patient request due to discomfort. She voided 400ml earlier this morning. No hematuria. Some dysuria and urinary urge/freq. No fevers or chills. Still with some nausea, relieved with IV Phenergan. No vomiting. Chart review: Afebrile, VSS. Wbc 4.90, Cr 0.62. UA from 03/09 neg. Review of Systems Constitutional: as per Subjective / HPI Gastrointestinal: as per Subjective / HPI Genitourinary: as per Subjective / HPI Physical Exam Constitutional: well developed and well nourished; no acute distress Respiratory: normal respiratory effort and able to speak in complete sentences Gastrointestinal (Abdomen): Percussion/Palpation: + abdomen tender (suprapubic tenderness with palpation) and abdomen soft; no guarding and abdomen not rigid Skin: Warm and dry Neurologic: awake Psychiatric: Orientation: alert, oriented x 3 and cooperative Genitourinary: no CVA tenderness Results & Data ([facility]) Vital Signs (Past 12 Hours) Vital Signs Temp Pulse Resp BP Pulse Ox 03/10/21 07:17 36.7 C 84 16 96/54 L 97 03/09/21 22:47 36.8 C 80 16 101/67 97 PG Care Time/CCT Total # of Minutes Spent Total Time Spent with Patient: Total time spent is greater than 50% in coordination of care (as documented) at patient's floor/unit and/or counseling patient: Coding Level of Care Code 51286 Subseq Hosp Care Lvl 2 Diagnoses Ureteral calculus, right N20.1 Urinary retention R33.9
--- NOTE | 2021-03-10 09:18 | XRay Report ---
KUB CLINICAL HISTORY: Right ureteral stone. FINDINGS: 2 AP supine abdominal radiographs are compared to abdominal radiographs and CT dated 021. There is a nonobstructed abdominal bowel gas pattern. Moderate fecal retention is noted in the c olon. This largely obscures the renal shadows. There is no radiographic evidence of nephrolithiasis. The right vesicoureteral calculus seen by CT is not apparent by x-ray. The bony structures appear int act. IMPRESSION: 1. Moderate colonic fecal retention. This significantly degrades assessment of the renal shadows. 2. The right vesicoureteral junction stone seen by CT is not apparent by x-ray. Electronically signed by: Lawrence Olivier M.D. 03/10/2021 9:16 AM
[2021-03-10] MEDS: HYDROmorphone INJ 1 MG/ML SYRINGE IV PRN ×3 (10:44→22:16)
[2021-03-10] MEDS: ONDANSETRON INJ 2 MG/ML 2 ML VIAL IV PRN ×2 (10:44→18:19)
--- NOTE | 2021-03-10 14:04 | Anesthesiology Consultation ---
Date of Service March 10, 2021 Assessment & Plan (1) Encounter for pre-operative examination: Chart Review Chart Review: Acceptable Risk for Surgery and Patient NOT seen in Pre Admission Testing covid neg 03/08/21. Consults Requested none History Surgery Operation Date: 03/10/21 11:00 Proposed Procedures p Right Cystoscopy, Right Ureteroscopy Stone Treatment and Stent Placement, Possible Laser(Right) - Chris Booker, DO Height/Weight Height: 5 ft 3 in Weight: 83.098 kg Allergies Allergy/AdvReac Type Severity Reaction Status Date / Time No Known Allergies Allergy Verified 03/08/21 08:16 Medications Home Medications Medication Instructions Recorded Confirmed Last Taken aluminum chloride 20 % topical 1 applic TOPICAL .COMPLEX #35 ml 01/12/21 03/08/21 03/06/21 solution citalopram 20 mg PO QAM 03/08/21 03/08/21 03/06/21 hydroxyzine pamoate [Vistaril] 25 mg PO DAILY PRN 03/08/21 03/08/21 03/04/21 Active Medications Generic Name Dose Route Start Last Admin Trade Name Freq PRN Reason Stop Dose Admin Acetaminophen 650 mg 03/09/21 15:07 03/10/21 05:49 Acetaminophen 325 Mg Tab PO 04/08/21 15:06 650 mg Q4H PRN Administration Pain Citalopram Hydrobromide 20 mg 03/09/21 09:00 03/10/21 08:06 Citalopram 20 Mg Tab PO 04/08/21 08:59 Not Given QAM HAM Hydromorphone HCl 1 mg 03/08/21 09:41 03/10/21 10:44 Hydromorphone Inj 1 Mg/Ml Syringe IV 03/22/21 09:40 1 mg Q4H PRN Administration Pain Hydroxyzine HCl 25 mg 03/08/21 09:41 03/09/21 21:07 Hydroxyzine Hcl 25 Mg Tab PO 04/07/21 09:40 25 mg DAILY PRN Administration Anxiety Promethazine HCl 12.5 mg/ 50.5 mls @ 202 mls/hr 03/09/21 17:23 03/09/21 22:05 Sodium Chloride IV 04/08/21 17:22 Infused Q6H PRN Infusion Nausea And Vomiting Ibuprofen 600 mg 03/09/21 15:07 03/09/21 19:45 Ibuprofen 600 Mg Tab PO 04/08/21 15:06 600 mg Q6H PRN Administration Pain Ketorolac Tromethamine 15 mg 03/09/21 17:23 03/10/21 08:06 Ketorolac Tromethamine 15 Mg/Ml Vial IV 03/14/21 17:22 15 mg Q6H PRN Administration Pain Ondansetron HCl 4 mg 03/08/21 09:41 03/10/21 10:44 Ondansetron Inj 2 Mg/Ml 2 Ml Vial IV 04/07/21 09:40 4 mg Q6H PRN Administration Nausea Phenazopyridine HCl 100 mg 03/09/21 15:07 03/10/21 08:05 Phenazopyridine Hcl 100 Mg Tab PO 04/08/21 15:06 100 mg TID PRN Administration Dysuria Tamsulosin HCl 0.4 mg 03/09/21 10:15 03/10/21 08:05 Tamsulosin Hcl 0.4 Mg Cap PO 04/08/21 10:14 0.4 mg QAM HAM Administration Past Medical History Medical History Anxiety Depression Dysuria GERD (gastroesophageal reflux disease) On occasions Hyperthyroidism Not on any medication LLQ abdominal pain Low TSH level Migraine Ovarian cyst Palpitations Pyelonephritis Ureteral calculus, left Vitamin D deficiency Past Family History Family History Mother Breast cancer Other Cancer Hypertension Kidney stones Denies family history of Ovarian cancer Prostate cancer Heart disease Myocardial infarction Colorectal cancer Past Surgical History Surgical History Nasal fracture Repair of nasal fracture S/P cystoscopy with ureteral stent placement 12/05/20 Dr. Lamont Ambrose- Cystoscopy, Left ureteroscopy, Laser lithotripsy, Stone basket extraction of stone, Left retrograde pyelogram, Left ureteral stent placement 11/2020: cysto, laser litho. LMA #4. No issues. Social History Smoking Status: Never smoker Do You Dip or Chew Tobacco: No Hx Alcohol Use: Yes Alcohol type: wine and hard liquor alcohol intake frequency: a few times a month Hx Substance Use: No Physical Exam Vital Signs Last Vital Signs Temp 36.7 C 03/10/21 07:17 Pulse 84 03/10/21 07:17 Resp 16 03/10/21 07:17 BP 96/54 L 03/10/21 07:17 Pulse Ox 97 03/10/21 07:17 Testing Laboratory Results 03/10/21 05:44 03/10/21 05:44 Urine Color Yellow 03/09/21 12:16 Urine Appearance Clear (Clear) 03/09/21 12:16 Urine pH 6.5 (4.5-7.5) 03/09/21 12:16 Ur Specific [place] 1.008 (1.000-1.030) 03/09/21 12:16 Urine Protein Negative (Negative) 03/09/21 12:16 Urine Glucose (UA) Negative (Negative) 03/09/21 12:16 Urine Ketones Negative (Negative) 03/09/21 12:16 Urine Nitrite Negative (Negative) 03/09/21 12:16 Ur Leukocyte Esterase Negative (Negative) 03/09/21 12:16 Urine WBC (Auto) 5-10 /hpf (0-5) H 03/08/21 05:00 Urine RBC (Auto) >30 /hpf (0-4) H 03/08/21 05:00 U Hyaline Cast (Auto) 5-10 /lpf (0-5) H 03/08/21 05:00 U Epithel Cells (Auto) >30 /lpf (0-5) H 03/08/21 05:00 Urine Bacteria (Auto) Negative (Negative) 03/08/21 05:00 03/08/21 05:00 POC Ur Test NEG
[2021-03-10] MEDS ORDERED: ONDANSETRON INJ 2 MG/ML 2 ML VIAL IV PRN ×2 (14:24→15:19)
[2021-03-10] MEDS ORDERED: ATROPINE SULFATE 0.1 MG/ML 10ML SYR IV PRN ×2 (14:24→15:19)
[2021-03-10] MEDS ORDERED: ePHEDrine sulfate 50 MG/ML AMP IV PRN (14:24)
[2021-03-10] MEDS ORDERED: LIDOCAINE 2% 2 ML VIAL/AMP(20MG/ML) INFIL ONE (15:06)
[2021-03-10] MEDS ORDERED: PROPOFOL IV EMULSION 10 MG/ML 20 ML VIAL IV ONE ×2 (15:06→16:02)
[2021-03-10] MEDS ORDERED: MIDAZOLAM HCL 1 MG/ML 2ML VIAL ONE ×2 (15:06→15:57)
[2021-03-10] MEDS ORDERED: fentaNYL citrate 100 MCG/2 ML VIAL ONE (15:06)
[2021-03-10] MEDS: CIPROFLOXACIN / D5W 400 MG/200 ML BAG IV SCH (15:36)
--- NOTE | 2021-03-10 16:37 | Operative Report ---
PG Post Operative Report Pre & Post Diagnosis Operation Date: 03/10/21 11:00 Pre-Op Diagnosis: Right kidney stone. Post-Op Diagnosis: Right kidney stone. I identified the patient and participated in the time-out.: Yes Procedure Operation Date: 03/10/21 11:00 Actual Procedures p Right Cystoscopy, Right Ureteroscopy, ureteral dilation, retrograde pyelogram, stone basket extraction, and Stent Placement - Chris Booker, Surgeon Chris Booker, II, DO De[employer] Element Winder Machine None Estimated Blood Loss 1 Findings Consistent with Post-Op Diagnosis Stricture dilated and Stone fragments removed. Specimens Stone Fragments Right Drains 6 Fr x 26 cm Right on Tether Anesthesia Type MAC Complications none Disposition Disposition: Recovery Room Indications Patient with bothersome stones. Risks and benefits discussed at length. Description of Procedure Patient was consented and brought back to the operating room. Patient was placed under anesthesia in the supine position and moved to the dorsal lithotomy position. Patient was prepped and draped in the regular sterile fashion. A time out was completed. A 30degree Cystoscope was placed into the bladder and the entire bladder was examined. The UO's were identified. The UO was cannulized with a catheter and a retrograde pyelogram was completed. A wire was then placed. The Rigid ureteroscope was taken into the ureter. A distal stricture was identified. This was dilated and the scope advanced. A second wire was then placed and the rigid scope removed. The flexible scope was then taken over the second wire and advanced to the proximal ureter and renal pelvis. The entire pelvis was examined and the stones basketed for removal. The entire area was once again examined. No residual large fragments or areas of concern were noted. The scope was slowly removed with the wire left in place. Contrast was placed through the scope for a pyelogram to assist in stent placement. The entire ureter was examined as the scope was slowly removed. No obstructions or other areas of concern were noted. With the wire in place, a 6 Fr Double J stent was placed. It was confirmed with fluoroscopy. With the stent in place, the bladder was emptied. The scope was removed. The patient was cleaned, aroused from anesthesia, and transferred to the pacu in stable condition having tolerated the procedure well with no complications. I was present and participated in all aspects of the procedure. The patient will be monitored in the PACU until transferred. Stent on tether. I attest to the content of the Intraoperative Record and any orders documented therein. Any exceptions are noted below.
[2021-03-10] MEDS ORDERED: DIATRIZOATE MEGLUMINE 30% 100ML VIAL INSTIL PRN (16:42)
[2021-03-10] MEDS: fentaNYL citrate 100 MCG/2 ML VIAL IV PRN ×7 (16:55→17:29)
--- NOTE | 2021-03-10 17:06 | Fluoroscopy Report ---
FL retrograde includes kub CLINICAL HISTORY: RT SIDE STENT RETROGRADE COMPARISON STUDY: None FLUOROSCOPY TIME: 42nd. NUMBER OF FLUOROSCOPIC IMAGES: 3 FINDINGS: Intraoperative fluoroscopic images were provided for review and show double-J stent within the anatom ical region of the right collecting system with opacification of the right renal pelvis. IMPRESSION: As above ACT 112: Negative or not required by law. The above report was generated using voice recognition software. It may contain grammatical, syntax o r spelling errors. Electronically signed by: Fior Perez DO 03/10/2021 5:05 PM
--- NOTE | 2021-03-10 17:19 | Anesthesiology Progress Note ---
Date of Service March 10, 2021 Anesthesia Post Procedure Vital Signs Vital Signs: Temp Pulse Pulse Resp BP Pulse Ox 03/10/21 17:10 84 14 117/81 100 03/10/21 17:00 69 14 111/86 100 03/10/21 16:50 79 14 130/82 100 03/10/21 16:41 36.1 C L 92 H 17 109/74 100 03/10/21 14:43 36.9 C 78 14 124/80 100 03/10/21 07:17 36.7 C 84 16 96/54 L 97 03/09/21 22:47 36.8 C 80 16 101/67 97 Pain Intensity Right Flank: Pain Intensity: 4 Groin: Pain Intensity: 7 Transfer of Care Handoff Completed per policy Notes Mental Status: alert / awake / arousable Patient Amnestic to Procedure: Yes Nausea / Vomiting: adequately controlled Pain: adequately controlled Airway Patency, RR, SpO2: stable & adequate BP & HR: stable & adequate Hydration State: stable & adequate Anesthetic Complications: no major complications apparent
[2021-03-10] MEDS: PROMETHAZINE HCL 25 MG in SODIUM CHLORIDE 0.9% 50 ML IV PRN (19:37)
[2021-03-10] MEDS ORDERED: HYDROmorphone INJ 1 MG/ML SYRINGE IV STA (19:42)
--- NOTE | 2021-03-10 23:53 | Hospitalist Progress Note ---
Date of Service March 10, 2021 Assessment & Plan (1) Urinary retention: unclear etiology, could be due to Dilaudid? will use Toradol IV instead callaway placed on 03/09 removed last night, now able to void again (2) Nausea: Phenergan IV, no relief with Zofran (3) Ureteral calculus, right: Flomax 0.4mg, pain control with Toradol, Dilaudid if very severe due to ongoing pain, urinary retention and unclear why she is not improving, urology took to OR for cystoscopy this afternoon stone retrieved, right ureteral stent placed now with increased right flank pain after stent placed (4) History of renal calculi: stones in the pelvis of kidneys 3mm stone in distal right ureter at the junction of bladder (5) MARCOS (generalized anxiety disorder): Admission and Anticipated Discharge Date Admission Date: March 09, 2021 Subjective callaway removed last night due to discomfort, she was able to void 400mL still with a lot of pain despite best efforts with Pyridium, Toradol and still very nauseated despite Phenergan renal function and electrolytes stable, repeat UA without signs of infection went for cystoscopy and stone retrieval in the afternoon, right ureteral stent placed after the procedure she was having more pain, more nausea gave her Phenergan 25mg and Dilaudid 1mg IV unclear why she is still having so much pain Review of Systems Review of Systems: All systems reviewed & are unremarkable except as noted in Subjective Genitourinary: + dysuria and + flank pain (right side, radiates down to groin) Physical Exam Constitutional: well developed, well nourished and comfortable; no acute di stress Neck: trachea midline, no thyromegaly Respiratory: normal respiratory effort, lungs clear to auscultation Cardiovascular: RRR, no murmur, no edema Gastrointestinal (Abdomen): normal bowel sounds, soft, nontender, no hepatosplenomegaly Musculoskeletal: no cyanosis or clubbing, extremities motor strength 5/5 Skin: no rashes, warm and dry Neurologic: patellar DTR's 2+ bilat, sensation intact and PERRL, EOMI, accommodation nl, no face palsy, no dysarthria Psychiatric: A+Ox3, euthymic affect Lymphatic: no cervical or axillary lymphadenopathy Results & Data Results & Data ([facility]) Vital Signs (Past 12 Hours) Vital Signs Temp Pulse Pulse Resp BP Pulse Ox 03/10/21 20:54 36.7 C 103 H 18 118/72 100 03/10/21 20:16 36.7 C 97 H 18 111/74 100 03/10/21 18:50 36.7 C 94 H 20 116/76 100 03/10/21 18:21 36.9 C 74 18 130/80 100 03/10/21 17:53 36.5 C 85 16 126/83 100 03/10/21 17:40 36.2 C L 91 H 14 124/68 99 03/10/21 17:30 73 14 108/78 96 03/10/21 17:20 87 14 115/79 99 03/10/21 17:10 84 14 117/81 100 03/10/21 17:00 69 14 111/86 100 03/10/21 16:50 79 14 130/82 100 03/10/21 16:41 36.1 C L 92 H 17 109/74 100 03/10/21 14:43 36.9 C 78 14 124/80 100 Laboratory Results Laboratory Results - last 24 hr 03/10/21 03/10/21 03/10/21 05:44 05:44 16:21 WBC 4.90 RBC 4.16 L Hgb 12.3 Hct 36.6 L MCV 88.0 MCH 29.6 MCHC 33.6 RDW Std Deviation 40.9 RDW Coeff of Baldo 12.7 Plt Count 226 MPV 10.2 Sodium 139 Potassium 3.8 Chloride 110 H Carbon Dioxide 25 Anion Gap 4.0 BUN 10 Creatinine 0.62 Est Cr Clr Drug Dosing 140.4 Est GFR ( Amer) 144.2 Est GFR (Non-Af Amer) 124.4 BUN/Creatinine Ratio 15.5 Glucose 96 Calcium 8.1 L Stone Source Pending Stone Weight Pending Stone Composition Pending Stone Composition 2 Pending Medications Administered Current Inpatient Medications Acetaminophen (Acetaminophen 325 Mg Tab) 650 mg PO Q4H PRN PRN Reason: Pain Stop: 04/08/21 15:06 Last Admin: 03/10/21 22:21 Dose: 650 mg Documented by: Citalopram Hydrobromide (Citalopram 20 Mg Tab) 20 mg PO QAM [facility] Stop: 04/08/21 08:59 Last Admin: 03/10/21 08:06 Dose: Not Given Documented by: Diatrizoate Meglumine (Diatrizoate Meglumine 30% 100ml Vial) 100 ml INSTIL UD PRN PRN Reason: Radiology Use Stop: 03/14/21 16:41 Last Admin: 03/10/21 16:45 Dose: 10 ml Documented by: Hydromorphone HCl (Hydromorphone Inj 1 Mg/Ml Syringe) 1 mg IV Q4H PRN PRN Reason: Pain Stop: 03/22/21 09:40 Last Admin: 03/10/21 22:16 Dose: 1 mg Documented by: Hydroxyzine HCl (Hydroxyzine Hcl 25 Mg Tab) 25 mg PO DAILY PRN PRN Reason: Anxiety Stop: 04/07/21 09:40 Last Admin: 03/09/21 21:07 Dose: 25 mg Documented by: Ciprofloxacin (Cipro / D5w) 400 mg in 200 mls @ 100 mls/hr IV PREOP [facility]; Protocol Stop: 03/11/21 11:04 Last Infusion: 03/10/21 18:13 Dose: Infused Documented by: Promethazine HCl 25 mg/ Sodium (Chloride) 51 mls @ 202 mls/hr IV Q6H PRN PRN Reason: Nausea And Vomiting Stop: 04/08/21 17:22 Last Infusion: 03/10/21 20:04 Dose: Infused Documented by: Ibuprofen (Ibuprofen 600 Mg Tab) 600 mg PO Q6H PRN PRN Reason: Pain Stop: 04/08/21 15:06 Last Admin: 03/09/21 19:45 Dose: 600 mg Documented by: Ketorolac Tromethamine (Ketorolac Tromethamine 15 Mg/Ml Vial) 15 mg IV Q6H PRN PRN Reason: Pain Stop: 03/14/21 17:22 Last Admin: 03/10/21 18:41 Dose: 15 mg Documented by: Ondansetron HCl (Ondansetron Inj 2 Mg/Ml 2 Ml Vial) 4 mg IV Q6H PRN PRN Reason: Nausea Stop: 04/07/21 09:40 Last Admin: 03/10/21 18:19 Dose: 4 mg Documented by: Phenazopyridine HCl (Phenazopyridine Hcl 100 Mg Tab) 100 mg PO TID PRN PRN Reason: Dysuria Stop: 04/08/21 15:06 Last Admin: 03/10/21 18:15 Dose: 100 mg Documented by: Tamsulosin HCl (Tamsulosin Hcl 0.4 Mg Cap) 0.4 mg PO QAM [facility] Stop: 04/08/21 10:14 Last Admin: 03/10/21 08:05 Dose: 0.4 mg Documented by: PG Care Time/CCT Total # of Minutes Spent Total Time Spent with Patient: Total time spent is greater than 50% in coordination of care (as documented) at patient's floor/unit and/or counseling patient: Coding Level of Care Code 37447 Subseq Hosp Care Lvl 2 Diagnoses Urinary retention R33.9 Nausea R11.0 Ureteral calculus, right N20.1 History of renal calculi Z87.442 MARCOS (generalized anxiety disorder) F41.1
[2021-03-11] MEDS: KETOROLAC TROMETHAMINE 15 MG/ML VIAL IV PRN ×3 (00:21→16:17)
[2021-03-11] MEDS: ONDANSETRON INJ 2 MG/ML 2 ML VIAL IV PRN ×3 (00:22→16:17)
[2021-03-11] MEDS: hydrOXYzine HCl 25 MG TAB PO PRN (00:38)
[2021-03-11] MEDS: IBUPROFEN 600 MG TAB PO PRN ×2 (00:38→10:03)
[2021-03-11] MEDS: HYDROmorphone INJ 1 MG/ML SYRINGE IV PRN ×5 (05:57→23:19)
--- NOTE | 2021-03-11 07:38 | Urology Progress Note ---
Date of Service March 11, 2021 Assessment & Plan (1) Ureteral calculus, right: (2) Right flank pain: 25yo F admitted with right renal colic secondary to a 3mm calculus noted on CTAP within the urinary bladder lumen near the right UVJ likely representing passed stone - Postop day #1 s/p Cystoscopy, Right Ureteroscopy, ureteral dilation, retrograde pyelogram, stone basket extraction, and Stent Placement with Dr. Booker. - Continues to have lower abdominal/suprapubic discomfort, likely related to right ureteral stent. - She is afebrile, VSS. - Tethered stent secured to right thigh - Plan to keep stent in place until Sunday - Patient to self-remove stent on Sunday - Instructed patient on procedure to remove stent. Reviewed worrisome signs/symptoms that would warrant ER evaluation. She is agreeable and verbalized an understanding. - No additional acute intervention indicated at this time. - Recommend continue supportive care, pain control, Tamsulosin, and PRN Pyridium. - Bowel regimen initiated. - Myrbetriq ordered for bladder spasms - Will continue to follow Admission and Anticipated Discharge Date Admission Date: March 09, 2021 Subjective Pt examined at bedside this morning. Awake, resting in bed on arrival. Still with lower abdominal/suprapubic discomfort, managing with IV Toradol and Dilaudid No nausea or vomiting this morning. She did have one episode of emesis last night. No fevers or chills. Tethered stent secured to R thigh. Voiding without difficulty, urine output overnight 300ml. Feels she is now emptying her bladder well. Still some dysuria and urinary urge/freq. Denies hematuria. She reports her LBM was 5/24 Review of Systems Constitutional: as per Subjective / HPI Gastrointestinal: as per Subjective / HPI Genitourinary: as per Subjective / HPI Physical Exam Constitutional: well developed and well nourished; no acute distress Respiratory: normal respiratory effort and able to speak in complete sentences Gastrointestinal (Abdomen): Percussion/Palpation: + abdomen tender (suprapubic tenderness with palpation) and abdomen soft; no guarding and abdomen not rigid Skin: Warm and dry Neurologic: awake Psychiatric: Orientation: alert, oriented x 3 and cooperative Genitourinary: Tethered stent secured to R thigh Results & Data ([facility]) Vital Signs (Past 12 Hours) Vital Signs Temp Pulse Resp BP Pulse Ox 05/27/21 23:53 36.7 C 78 18 119/77 98 03/10/21 20:54 36.7 C 103 H 18 118/72 100 03/10/21 20:16 36.7 C 97 H 18 111/74 100 PG Care Time/CCT Total # of Minutes Spent Total Time Spent with Patient: Total time spent is greater than 50% in coordination of care (as documented) at patient's floor/unit and/or counseling patient: Coding Level of Care Code 98934 Subseq Hosp Care Lvl 2 Diagnoses Ureteral calculus, right N20.1 Right flank pain R10.9
[2021-03-11] MEDS: TAMSULOSIN HCL 0.4 MG CAP PO SCH (07:58)
[2021-03-11] MEDS: CITALOPRAM 20 MG TAB PO SCH (07:58)
[2021-03-11] MEDS: PHENAZOPYRIDINE HCL 100 MG TAB PO PRN (07:58)
[2021-03-11] MEDS: CIPROFLOXACIN / D5W 400 MG/200 ML BAG IV SCH (08:18)
[2021-03-11] MEDS: PROMETHAZINE HCL 25 MG in SODIUM CHLORIDE 0.9% 50 ML IV PRN ×2 (10:39→18:09)
--- NOTE | 2021-03-11 10:55 | Anesthesiology Progress Note ---
Date of Service March 11, 2021 Anesthesia Post Procedure Vital Signs Vital Signs: Temp Pulse Pulse Resp BP Pulse Ox 03/11/21 07:47 36.6 C 81 18 123/78 97 03/10/21 23:53 36.7 C 78 18 119/77 98 03/10/21 20:54 36.7 C 103 H 18 118/72 100 03/10/21 20:16 36.7 C 97 H 18 111/74 100 03/10/21 18:50 36.7 C 94 H 20 116/76 100 03/10/21 18:21 36.9 C 74 18 130/80 100 03/10/21 17:53 36.5 C 85 16 126/83 100 03/10/21 17:40 36.2 C L 91 H 14 124/68 99 03/10/21 17:30 73 14 108/78 96 03/10/21 17:20 87 14 115/79 99 03/10/21 17:10 84 14 117/81 100 03/10/21 17:00 69 14 111/86 100 03/10/21 16:50 79 14 130/82 100 03/10/21 16:41 36.1 C L 92 H 17 109/74 100 03/10/21 14:43 36.9 C 78 14 124/80 100 Pain Intensity Right Flank: Pain Intensity: 10 Groin: Pain Intensity: 8 Notes Mental Status: alert / awake / arousable and participated in evaluation Patient Amnestic to Procedure: Yes Nausea / Vomiting: improving with treatment Pain: adequately controlled Airway Patency, RR, SpO2: stable & adequate BP & HR: stable & adequate Hydration State: stable & adequate
[2021-03-11] MEDS ORDERED: bisacodyL 10 MG SUPP PR STA (12:18)
[2021-03-11] MEDS ORDERED: MAGNESIUM HYDROXIDE SUSP 30 ML UDC PO PRN (12:18)
[2021-03-11] MEDS ORDERED: MAGNESIUM HYDROXIDE SUSP 30 ML UDC PO ONE (12:18)
[2021-03-11] MEDS: MIRABEGRON ER 25 MG TAB PO SCH (12:54)
[2021-03-11] MEDS: DOCUSATE SODIUM 100 MG CAP PO SCH ×2 (12:54→20:09)
[2021-03-11] MEDS ORDERED: METOCLOPRAMIDE HCL INJ 5 MG/ML 2 ML VIAL IV STA (14:34)
[2021-03-11] MEDS ORDERED: OXYBUTYNIN CHLORIDE 5 MG TAB PO STA (18:59)
[2021-03-11] MEDS ORDERED: HYDROmorphone INJ 1 MG/ML SYRINGE IV STA (19:21)
--- NOTE | 2021-03-11 22:05 | Hospitalist Progress Note ---
Date of Service March 11, 2021 Assessment & Plan (1) Ureteral calculus, right: Flomax 0.4mg, pain control with Toradol, Dilaudid if very severe due to ongoing pain, urinary retention and unclear why she is not improving, urology took to OR for cystoscopy on 03/10 stone retrieved, right ureteral stent placed now with increased right flank pain after stent placed added Mirabegron and Oxybutynin today needs to try to keep the stent until Sunday (2) Urinary retention: unclear etiology, could be due to Dilaudid? will use Toradol IV instead callaway placed on 03/09 removed last night, now able to void again (3) Nausea: Phenergan IV, no relief with Zofran try Reglan 10mg IV today as she continues with nausea (4) History of renal calculi: stones in the pelvis of kidneys 3mm stone in distal right ureter at the junction of bladder (5) MARCOS (generalized anxiety disorder): Admission and Anticipated Discharge Date Admission Date: March 09, 2021 Subjective patient still with a lot of spasms, pain on the right side she said that the pain has not changed at all with the stent, no improvement minimal relief with Dilaudid, Toradol and the pain triggers nausea, some relief with Phenergan she was able to have a BM today after suppository will try a dose of Reglan for the nausea urology added Mirabegron still having intense spasms, doubled over in pain, try a dose of Oxybutynin 5mg no labs checked today Review of Systems Review of Systems: All systems reviewed & are unremarkable except as noted in Subjective Physical Exam 2 Constitutional: well developed, well nourished and comfortable; no acute distress Neck: trachea midline, no thyromegaly Respiratory: normal respiratory effort, lungs clear to auscultation Cardiovascular: RRR, no murmur, no edema Gastrointestinal (Abdomen): normal bowel sounds, soft, nontender, no hepatosplenomegaly Musculoskeletal: no cyanosis or clubbing, extremities motor strength 5/5 Skin: no rashes, warm and dry Neurologic: patellar DTR's 2+ bilat, sensation intact and PERRL, EOMI, accommodation nl, no face palsy, no dysarthria Psychiatric: A+Ox3, euthymic affect Lymphatic: no cervical or axillary lymphadenopathy Results & Data Results & Data ([facility]) Vital Signs (Past 12 Hours) Vital Signs Temp Pulse Resp BP Pulse Ox 03/11/21 16:46 36.5 C 83 16 114/77 97 03/11/21 12:15 87 18 107/73 98 Medications Administered Current Inpatient Medications Acetaminophen (Acetaminophen 1000 Mg/100 Ml Iv) 1,000 mg IV Q8H PRN PRN Reason: Pain or Fever Stop: 03/14/21 19:20 Citalopram Hydrobromide (Citalopram 20 Mg Tab) 20 mg PO QAM [facility] Stop: 04/08/21 08:59 Last Admin: 03/11/21 07:58 Dose: Not Given Documented by: Diatrizoate Meglumine (Diatrizoate Meglumine 30% 100ml Vial) 100 ml INSTIL UD PRN PRN Reason: Radiology Use Stop: 03/14/21 16:41 Last Admin: 03/10/21 16:45 Dose: 10 ml Documented by: Docusate Sodium (Docusate Sodium 100 Mg Cap) 100 mg PO BID [facility] Stop: 04/10/21 12:29 Last Admin: 03/11/21 20:09 Dose: Not Given Documented by: Hydromorphone HCl (Hydromorphone Inj 1 Mg/Ml Syringe) 1 mg IV Q4H PRN PRN Reason: Pain Stop: 03/22/21 09:40 Last Admin: 03/11/21 18:25 Dose: 1 mg Documented by: Hydroxyzine HCl (Hydroxyzine Hcl 25 Mg Tab) 25 mg PO DAILY PRN PRN Reason: Anxiety Stop: 04/07/21 09:40 Last Admin: 03/11/21 00:38 Dose: 25 mg Documented by: Promethazine HCl 25 mg/ Sodium (Chloride) 51 mls @ 202 mls/hr IV Q6H PRN PRN Reason: Nausea And Vomiting Stop: 04/08/21 17:22 Last Infusion: 03/11/21 18:29 Dose: Infused Documented by: Ibuprofen (Ibuprofen 600 Mg Tab) 600 mg PO Q6H PRN PRN Reason: Pain Stop: 04/08/21 15:06 Last Admin: 03/11/21 10:03 Dose: 600 mg Documented by: Ketorolac Tromethamine (Ketorolac 30 Mg/Ml Vial) 30 mg IV Q6H PRN PRN Reason: Pain Stop: 03/14/21 17:22 Magnesium Hydroxide (Magnesium Hydroxide Susp 30 Ml Udc) 30 ml PO Q6H PRN PRN Reason: Constipation Stop: 04/10/21 12:17 Mirabegron (Mirabegron Er 25 Mg Tab) 50 mg PO DAILY [facility] Stop: 04/10/21 12:29 Last Admin: 03/11/21 12:54 Dose: 50 mg Documented by: Ondansetron HCl (Ondansetron Inj 2 Mg/Ml 2 Ml Vial) 4 mg IV Q6H PRN PRN Reason: Nausea Stop: 04/07/21 09:40 Last Admin: 03/11/21 16:17 Dose: 4 mg Documented by: Phenazopyridine HCl (Phenazopyridine Hcl 100 Mg Tab) 100 mg PO TID PRN PRN Reason: Dysuria Stop: 04/08/21 15:06 Last Admin: 03/11/21 07:58 Dose: 100 mg Documented by: Tamsulosin HCl (Tamsulosin Hcl 0.4 Mg Cap) 0.4 mg PO QAM [facility] Stop: 04/08/21 10:14 Last Admin: 03/11/21 07:58 Dose: 0.4 mg Documented by: PG Care Time/CCT Total # of Minutes Spent Total Time Spent with Patient: Total time spent is greater than 50% in coordination of care (as documented) at patient's floor/unit and/or counseling patient: Coding Level of Care Code 26338 Subseq Hosp Care Lvl 2 Diagnoses Ureteral calculus, right N20.1 Urinary retention R33.9 Nausea R11.0 History of renal calculi Z87.442 MARCOS (generalized anxiety disorder) F41.1
[2021-03-12] MEDS: KETOROLAC 30 MG/ML VIAL IV PRN ×3 (00:38→19:43)
[2021-03-12] MEDS: PHENAZOPYRIDINE HCL 100 MG TAB PO PRN ×4 (00:41→23:47)
[2021-03-12] MEDS: HYDROmorphone INJ 1 MG/ML SYRINGE IV PRN ×4 (08:56→23:48)
[2021-03-12] MEDS: PROMETHAZINE HCL 25 MG in SODIUM CHLORIDE 0.9% 50 ML IV PRN ×2 (08:57→21:35)
[2021-03-12] MEDS: DOCUSATE SODIUM 100 MG CAP PO SCH ×2 (08:57→20:43)
[2021-03-12] MEDS: MIRABEGRON ER 25 MG TAB PO SCH (08:57)
[2021-03-12] MEDS: CITALOPRAM 20 MG TAB PO SCH (08:57)
[2021-03-12] MEDS: TAMSULOSIN HCL 0.4 MG CAP PO SCH (08:57)
[2021-03-12] MEDS: IBUPROFEN 600 MG TAB PO PRN (11:05)
[2021-03-12] MEDS ORDERED: OXYBUTYNIN CHLORIDE 5 MG TAB PO STA (13:58)
--- NOTE | 2021-03-12 14:02 | Hospitalist Progress Note ---
Date of Service March 12, 2021 Assessment & Plan (1) Ureteral calculus, right: Flomax 0.4mg, pain control with Toradol, Dilaudid if very severe due to ongoing pain, urinary retention and unclear why she is not improving, urology took to OR for cystoscopy on 03/10 stone retrieved, right ureteral stent placed now with increased right flank pain after stent placed added Mirabegron and Oxybutynin, better pain relief will make the Oxybutynin BID needs to try to keep the stent until Sunday (2) Urinary retention: unclear etiology, could be due to Dilaudid? will use Toradol IV instead callaway placed on 03/09 no issues voiding the past two days since callaway removed (3) Nausea: Phenergan IV, no relief with Zofran tried Reglan but no relief (4) History of renal calculi: stones in the pelvis of kidneys 3mm stone in distal right ureter at the junction of bladder (5) MARCOS (generalized anxiety disorder): Admission and Anticipated Discharge Date Admission Date: March 09, 2021 Subjective reports that her pain and spasms are way better still with nausea, cannot eat or drink much she is able to urinate no fever/chills, no diarrhea, no chest pain, no dyspnea the abdominal pain is crampy, right sided urine is dark from the Pyridium Review of Systems Review of Systems: All systems reviewed & are unremarkable except as noted in Subjective Physical Exam Constitutional: well developed, well nourished and comfortable; no acute distress Neck: trachea midline, no thyromegaly Respiratory: normal respiratory effort, lungs clear to auscultation Cardiovascular: RRR, no murmur, no edema Gastrointestinal (Abdomen): normal bowel sounds, soft, nontender, no hepatosplenomegaly Musculoskeletal: no cyanosis or clubbing, extremities motor strength 5/5 Skin: no rashes, warm and dry Neurologic: patellar DTR's 2+ bilat, sensation intact and PERRL, EOMI, accommodation nl, no face palsy, no dysarthria Psychiatric: A+Ox3, euthymic affect Lymphatic: no cervical or axillary lymphadenopathy Results & Data Results & Data ([facility]) Vital Signs (Past 12 Hours) Vital Signs Temp Pulse Resp BP Pulse Ox 03/12/21 07:35 36.8 C 73 16 110/69 97 Medications Administered Current Inpatient Medications Acetaminophen (Acetaminophen 1000 Mg/100 Ml Iv) 1,000 mg IV Q8H PRN PRN Reason: Pain or Fever Stop: 03/14/21 19:20 Citalopram Hydrobromide (Citalopram 20 Mg Tab) 20 mg PO QAM [facility] Stop: 04/08/21 08:59 Last Admin: 03/12/21 08:57 Dose: 20 mg Documented by: Diatrizoate Meglumine (Diatrizoate Meglumine 30% 100ml Vial) 100 ml INSTIL UD PRN PRN Reason: Radiology Use Stop: 03/14/21 16:41 Last Admin: 03/10/21 16:45 Dose: 10 ml Documented by: Docusate Sodium (Docusate Sodium 100 Mg Cap) 100 mg PO BID [facility] Stop: 04/10/21 12:29 Last Admin: 03/12/21 08:57 Dose: 100 mg Documented by: Hydromorphone HCl (Hydromorphone Inj 1 Mg/Ml Syringe) 1 mg IV Q4H PRN PRN Reason: Pain Stop: 03/22/21 09:40 Last Admin: 03/12/21 08:56 Dose: 1 mg Documented by: Hydroxyzine HCl (Hydroxyzine Hcl 25 Mg Tab) 25 mg PO DAILY PRN PRN Reason: Anxiety Stop: 04/07/21 09:40 Last Admin: 03/11/21 00:38 Dose: 25 mg Documented by: Promethazine HCl 25 mg/ Sodium (Chloride) 51 mls @ 202 mls/hr IV Q6H PRN PRN Reason: Nausea And Vomiting Stop: 04/08/21 17:22 Last Infusion: 03/12/21 09:20 Dose: Infused Documented by: Ibuprofen (Ibuprofen 600 Mg Tab) 600 mg PO Q6H PRN PRN Reason: Pain Stop: 04/08/21 15:06 Last Admin: 03/12/21 11:05 Dose: 600 mg Documented by: Ketorolac Tromethamine (Ketorolac 30 Mg/Ml Vial) 30 mg IV Q6H PRN PRN Reason: Pain Stop: 03/14/21 17:22 Last Admin: 03/12/21 11:05 Dose: 30 mg Documented by: Magnesium Hydroxide (Magnesium Hydroxide Susp 30 Ml Udc) 30 ml PO Q6H PRN PRN Reason: Constipation Stop: 04/10/21 12:17 Mirabegron (Mirabegron Er 25 Mg Tab) 50 mg PO DAILY [facility] Stop: 04/10/21 12:29 Last Admin: 03/12/21 08:57 Dose: 50 mg Documented by: Ondansetron HCl (Ondansetron Inj 2 Mg/Ml 2 Ml Vial) 4 mg IV Q6H PRN PRN Reason: Nausea Stop: 04/07/21 09:40 Last Admin: 03/11/21 16:17 Dose: 4 mg Documented by: Oxybutynin Chloride (Oxybutynin Chloride 5 Mg Tab) 5 mg PO BID [facility] Stop: 04/12/21 08:59 Oxybutynin Chloride (Oxybutynin Chloride 5 Mg Tab) 5 mg PO NOW STA Stop: 03/12/21 13:59 Phenazopyridine HCl (Phenazopyridine Hcl 100 Mg Tab) 100 mg PO TID PRN PRN Reason: Dysuria Stop: 04/08/21 15:06 Last Admin: 03/12/21 09:04 Dose: 100 mg Documented by: Tamsulosin HCl (Tamsulosin Hcl 0.4 Mg Cap) 0.4 mg PO QAM [facility] Stop: 04/08/21 10:14 Last Admin: 03/12/21 08:57 Dose: 0.4 mg Documented by: PG Care Time/CCT Total # of Minutes Spent Total Time Spent with Patient: Total time spent is greater than 50% in coordination of care (as documented) at patient's floor/unit and/or counseling patient: Coding Level of Care Code 22158 Subseq Hosp Care Lvl 2 Diagnoses Ureteral calculus, right N20.1 Urinary retention R33.9 Nausea R11.0 History of renal calculi Z87.442 MARCOS (generalized anxiety disorder) F41.1
[2021-03-12] MEDS: ACETAMINOPHEN 1000 MG/100 ML IV IV PRN (16:56)
[2021-03-13] MEDS: HYDROmorphone INJ 1 MG/ML SYRINGE IV PRN ×5 (05:14→21:01)
[2021-03-13] MEDS: KETOROLAC 30 MG/ML VIAL IV PRN ×3 (05:57→20:09)
[2021-03-13] MEDS: TAMSULOSIN HCL 0.4 MG CAP PO SCH (09:00)
[2021-03-13] MEDS: PHENAZOPYRIDINE HCL 100 MG TAB PO PRN ×2 (09:00→20:20)
[2021-03-13] MEDS: MIRABEGRON ER 25 MG TAB PO SCH (09:00)
[2021-03-13] MEDS: CITALOPRAM 20 MG TAB PO SCH (09:01)
[2021-03-13] MEDS: DOCUSATE SODIUM 100 MG CAP PO SCH ×2 (09:01→20:11)
[2021-03-13] MEDS: OXYBUTYNIN CHLORIDE 5 MG TAB PO SCH ×2 (09:01→20:11)
[2021-03-13] MEDS: PROMETHAZINE HCL 25 MG in SODIUM CHLORIDE 0.9% 50 ML IV PRN ×2 (09:34→17:53)
--- NOTE | 2021-03-13 09:48 | Urology Progress Note ---
Date of Service March 13, 2021 Assessment & Plan (1) Ureteral calculus, right: Persistent pain. Continue to treat with oral pain meds, flomax, anti-choles, NSAIDs. Stent to be removed Sun/ per Dr. Booker recommendation. (2) Right flank pain: Admission and Anticipated Discharge Date Admission Date: March 09, 2021 Subjective Pt continues to have pain. Less nausea. No vomiting. Overall seems like the pain has improved. No fevers. No chills. Review of Systems Review of Systems: All systems reviewed & are unremarkable except as noted in HPI & below Physical Exam Constitutional: WD/WN, vitals as above Eyes: PERRL, conjunctivae normal, anicteric sclerae Respiratory: normal respiratory effort, lungs clear to auscultation Cardiovascular: RRR, no murmur, no edema Results & Data ([facility]) Vital Signs (Past 12 Hours) Vital Signs Temp Pulse Resp BP Pulse Ox 03/13/21 07:43 36.7 C 77 16 97/63 L 95 03/12/21 22:42 36.4 C L 66 16 121/77 97 PG Care Time/CCT Total # of Minutes Spent Total Time Spent with Patient: Total time spent is greater than 50% in coordination of care (as documented) at patient's floor/unit and/or counseling patient: 20 Coding Level of Care Code 26182 Subseq Hosp Care Lvl 2 Diagnoses Ureteral calculus, right N20.1 Right flank pain R10.9
[2021-03-13] MEDS: IBUPROFEN 600 MG TAB PO PRN (12:37)
--- NOTE | 2021-03-13 15:09 | Hospitalist Progress Note ---
Date of Service March 13, 2021 Assessment & Plan (1) Ureteral calculus, right: Flomax 0.4mg, pain control with Toradol, Dilaudid if very severe due to ongoing pain, urinary retention and unclear why she is not improving, urology took to OR for cystoscopy on 03/10 stone retrieved, right ureteral stent placed now with increased right flank pain after stent placed lots of pain due to spasms, whenever she has to void added Mirabegron and Oxybutynin 5mg BID, better pain relief she plans to take out the stent tomorrow morning (urology wanted her to keep until Sunday) hopeful that pain will be improved after that, try to stop Toradol and Dilaudid, change to Oxycodone and ibuprofen PRN try to discharge home once pain better (2) Urinary retention: callaway placed on 03/09 no issues voiding the past three days since callaway removed (3) Nausea: Phenergan IV, no relief with Zofran tried Reglan but no relief today she was able to keep down food and drink, first time all week hopeful that this will continue (4) History of renal calculi: stones in the pelvis of kidneys 3mm stone in distal right ureter at the junction of bladder (5) MARCOS (generalized anxiety disorder): Admission and Anticipated Discharge Date Admission Date: March 09, 2021 Subjective patient doing better today, able to actually eat and drink without vomiting which is the first time in a few days pain is better and able to void she is hoping she will feel a lot better tomorrow after she takes out the stent no labs, no fever, vitals stable Review of Systems Review of Systems: All systems reviewed & are unremarkable except as noted in Subjective Genitourinary: + difficulty urinating, + urinary frequency, + hematuria (dark discolortation, likely combination of some hematuria and pyridium) and + flank pain Physical Exam Constitutional: well developed, well nourished and comfortable; no acute distress Neck: trachea midline, no thyromegaly Respiratory: normal respiratory effort, lungs clear to auscultation Cardiovascular: RRR, no murmur, no edema Gastrointestinal (Abdomen): normal bowel sounds, soft, nontender, no hepatosplenomegaly Musculoskeletal: no cyanosis or clubbing, extremities motor strength 5/5 Skin: no rashes, warm and dry Neurologic: patellar DTR's 2+ bilat, sensation intact and PERRL, EOMI, accommodation nl, no face palsy, no dysarthria Psychiatric: A+Ox3, euthymic affect Lymphatic: no cervical or axillary lymphadenopathy Results & Data Results & Data ([facility]) Vital Signs (Past 12 Hours) Vital Signs Temp Pulse Resp BP Pulse Ox 03/13/21 14:32 36.6 C 81 16 121/82 97 03/13/21 07:43 36.7 C 77 16 97/63 L 95 Medications Administered Current Inpatient Medications Acetaminophen (Acetaminophen 1000 Mg/100 Ml Iv) 1,000 mg IV Q8H PRN PRN Reason: Pain or Fever Stop: 03/14/21 19:20 Last Admin: 03/12/21 16:56 Dose: 1,000 mg Documented by: Citalopram Hydrobromide (Citalopram 20 Mg Tab) 20 mg PO QAM [facility] Stop: 04/08/21 08:59 Last Admin: 03/13/21 09:01 Dose: 20 mg Documented by: Diatrizoate Meglumine (Diatrizoate Meglumine 30% 100ml Vial) 100 ml INSTIL UD PRN PRN Reason: Radiology Use Stop: 03/14/21 16:41 Last Admin: 03/10/21 16:45 Dose: 10 ml Documented by: Docusate Sodium (Docusate Sodium 100 Mg Cap) 100 mg PO BID [facility] Stop: 04/10/21 12:29 Last Admin: 03/13/21 09:01 Dose: 100 mg Documented by: Hydromorphone HCl (Hydromorphone Inj 1 Mg/Ml Syringe) 1 mg IV Q4H PRN PRN Reason: Pain Stop: 03/22/21 09:40 Last Admin: 03/13/21 13:38 Dose: 1 mg Documented by: Hydroxyzine HCl (Hydroxyzine Hcl 25 Mg Tab) 25 mg PO DAILY PRN PRN Reason: Anxiety Stop: 04/07/21 09:40 Last Admin: 03/11/21 00:38 Dose: 25 mg Documented by: Promethazine HCl 25 mg/ Sodium (Chloride) 51 mls @ 202 mls/hr IV Q6H PRN PRN Reason: Nausea And Vomiting Stop: 04/08/21 17:22 Last Infusion: 03/13/21 09:51 Dose: Infused Documented by: Ibuprofen (Ibuprofen 600 Mg Tab) 600 mg PO Q6H PRN PRN Reason: Pain Stop: 04/08/21 15:06 Last Admin: 03/13/21 12:37 Dose: 600 mg Documented by: Ketorolac Tromethamine (Ketorolac 30 Mg/Ml Vial) 30 mg IV Q6H PRN PRN Reason: Pain Stop: 03/14/21 17:22 Last Admin: 03/13/21 12:38 Dose: 30 mg Documented by: Magnesium Hydroxide (Magnesium Hydroxide Susp 30 Ml Udc) 30 ml PO Q6H PRN PRN Reason: Constipation Stop: 04/10/21 12:17 Mirabegron (Mirabegron Er 25 Mg Tab) 50 mg PO DAILY [facility] Stop: 04/10/21 12:29 Last Admin: 03/13/21 09:00 Dose: 50 mg Documented by: Ondansetron HCl (Ondansetron Inj 2 Mg/Ml 2 Ml Vial) 4 mg IV Q6H PRN PRN Reason: Nausea Stop: 04/07/21 09:40 Last Admin: 03/11/21 16:17 Dose: 4 mg Documented by: Oxybutynin Chloride (Oxybutynin Chloride 5 Mg Tab) 5 mg PO BID [facility] Stop: 04/12/21 08:59 Last Admin: 03/13/21 09:01 Dose: 5 mg Documented by: Phenazopyridine HCl (Phenazopyridine Hcl 100 Mg Tab) 100 mg PO TID PRN PRN Reason: Dysuria Stop: 04/08/21 15:06 Last Admin: 03/13/21 09:00 Dose: 100 mg Documented by: Tamsulosin HCl (Tamsulosin Hcl 0.4 Mg Cap) 0.4 mg PO QAM [facility] Stop: 04/08/21 10:14 Last Admin: 03/13/21 09:00 Dose: 0.4 mg Documented by: PG Care Time/CCT Total # of Minutes Spent Total Time Spent with Patient: Total time spent is greater than 50% in coordi nation of care (as documented) at patient's floor/unit and/or counseling patient: Coding Level of Care Code 73706 Subseq Hosp Care Lvl 2 Diagnoses Ureteral calculus, right N20.1 Urinary retention R33.9 Nausea R11.0 History of renal calculi Z87.442 MARCOS (generalized anxiety disorder) F41.1
[2021-03-13] MEDS: ONDANSETRON INJ 2 MG/ML 2 ML VIAL IV PRN (20:11)
[2021-03-13] MEDS: ACETAMINOPHEN 1000 MG/100 ML IV IV PRN (22:46)
[2021-03-14] MEDS: KETOROLAC 30 MG/ML VIAL IV PRN ×2 (02:10→10:37)
[2021-03-14] MEDS: HYDROmorphone INJ 1 MG/ML SYRINGE IV PRN ×2 (02:10→06:17)
[2021-03-14] MEDS: PROMETHAZINE HCL 25 MG in SODIUM CHLORIDE 0.9% 50 ML IV PRN ×3 (02:15→19:32)
[2021-03-14] MEDS: CITALOPRAM 20 MG TAB PO SCH (08:00)
[2021-03-14] MEDS: PHENAZOPYRIDINE HCL 100 MG TAB PO PRN ×2 (08:01→18:49)
[2021-03-14] MEDS: DOCUSATE SODIUM 100 MG CAP PO SCH ×2 (08:02→19:43)
[2021-03-14] MEDS: OXYBUTYNIN CHLORIDE 5 MG TAB PO SCH (08:02)
[2021-03-14] MEDS: MIRABEGRON ER 25 MG TAB PO SCH (08:03)
--- NOTE | 2021-03-14 08:22 | Hospitalist Progress Note ---
Date of Service March 14, 2021 Assessment & Plan (1) Ureteral calculus, right: Flomax 0.4mg, pain control with Toradol, Dilaudid if very severe due to ongoing pain, urinary retention and unclear why she is not improving, urology took to OR for cystoscopy on 03/10 stone retrieved, right ureteral stent placed had increased right flank pain after stent placed lots of pain due to spasms, whenever she has to void ---improved with addition of added Mirabegron and Oxybutynin 5mg BID but did require dose of toradol x 1 this overnight as well as dose of Dilaudid x 1. --Will ordered oxycodone PO for oral option in anticipation for d/c. Dc Dilaudid Additional dose of Pyridium this morning, 03/14 with relief -- can send some at d/c for relief but suspect improvement once stent removed given prior course and relief once removed Oxycodone, ibuprofen prn Plans for stent removal today by Urology (2) Urinary retention: callaway placed on 03/09 no issues voiding the past four days since callaway removed (3) Nausea: Phenergan IV, no relief with Zofran tried Reglan but no relief 03/13 she was able to keep down food and drink, first time all week --> NO FURTHER NAUSEA SINCE AM 03/13 (4) History of renal calculi: stones in the pelvis of kidneys 3mm stone in distal right ureter at the junction of bladder Stone analysis pending (5) MARCOS (generalized anxiety disorder): Citalopram continued DVT Prophylaxis --SCDs, Frequent ambulation Dispo: Urology to remove stent today Likely d/c in AM Admission and Anticipated Discharge Date Admission Date: March 09, 2021 Subjective Patient evaluated this morning. Patient states pain is controlled however does have some discomfort on occasion with urination secondary to stent which is similar to her discomfort approximately 2 months ago when she needed a stent to the left side. She has not yet seen urology this morning but plans for stent removal today. She did get a dose of Pyridium for bladder discomfort which has been effective in controlling her pain. Pain is located suprapubically and to her right groin. Discussed urine culture did not show any evidence of infection and no further needs for antibiotics. She has had nausea but nothing since yesterday and has had no vomiting since yesterday morning. Eating and drinking without issue. She had a bowel movement yesterday but nothing yet today. Patient has remained afebrile, no chest pain, no shortness of breath, abdominal pain, nausea, vomiting, or other symptoms at this time. She states the last time she had her stent removed and a monitor overnight which is reasonable however patient is feeling much improved after stent removal and tolerating everything this evening could consider discharge late night versus early tomorrow morning. Review of Systems Review of Systems: All systems reviewed & are unremarkable except as noted in HPI & below Physical Exam Constitutional: well developed, well nourished and comfortable; no acute distress Eyes: + eyelid abnormality and PERRL ENMT: mmm Neck: trachea midline, no thyromegaly Respiratory: normal respiratory effort, lungs clear to auscultation Cardiovascular: RRR, no murmur, no edema Gastrointestinal (Abdomen): normal bowel sounds, soft, nontender, no hepatos plenomegaly Musculoskeletal: no cyanosis or clubbing, extremities motor strength 5/5 Skin: no rashes, warm and dry Neurologic: patellar DTR's 2+ bilat, sensation intact and PERRL, EOMI, accommodation nl, no face palsy, no dysarthria Psychiatric: A+Ox3, euthymic affect Lymphatic: no cervical or axillary lymphadenopathy Results & Data Results & Data ([facility]) Vital Signs (Past 12 Hours) Vital Signs Temp Pulse Resp BP Pulse Ox 03/14/21 07:44 36.4 C L 82 18 109/76 96 03/13/21 22:50 36.8 C 85 16 113/76 97 Laboratory Results 03/14/21 03/14/21 Range/Units 08:38 08:38 WBC 4.19 L (4.8-10.8) K/uL RBC 4.23 (4.2-5.4) M/uL Hgb 12.4 (12.0-16.0) g/dL Hct 38.6 (37-47) % MCV 91.3 (80-100) fL MCH 29.3 (25-34) pg MCHC 32.1 (32-36) g/dL RDW Std Deviation 42.1 (36.4-46.3) fL RDW Coeff of Baldo 12.5 (11.5-14.5) % Plt Count 219 (130-400) K/uL MPV 10.2 (7.4-10.4) fL Sodium 139 (136-145) mmol/L Potassium 4.0 (3.5-5.1) mmol/L Chloride 105 (98-107) mmol/L Carbon Dioxide 29 (21-32) mmol/L Anion Gap 5.0 (3-11) BUN 11 (7-18) mg/dl Creatinine 0.61 (0.6-1.2) mg/dl Est Cr Clr Drug Dosing 142.7 ml/min Est GFR ( Amer) 145.0 ml/min Est GFR (Non-Af Amer) 125.1 ml/min BUN/Creatinine Ratio 18.5 (10-20) Glucose 98 (70-99) mg/dl Calcium 8.8 (8.5-10.1) mg/dl PG Care Time/CCT Total # of Minutes Spent Total Time Spent with Patient: Total time spent is greater than 50% in coordination of care (as documented) at patient's floor/unit and/or counseling patient: Coding Level of Care Code 17843 Subseq Hosp Care Lvl 2 Diagnoses Ureteral calculus, right N20.1 Urinary retention R33.9 Nausea R11.0 History of renal calculi Z87.442 MARCOS (generalized anxiety disorder) F41.1
[2021-03-14 08:58] LABS: Hematocrit (blood only) 38.6 % (37-47); Hemoglobin 12.4 g/dL (12.0-16.0); Mean Corpuscular Hemoglobin 29.3 pg (25-34); Mean Corpuscular Hgb Conc 32.1 g/dL (32-36); Mean Corpuscular Volume 91.3 fL (80-100); Mean Platelet Volume 10.2 fL (7.4-10.4); Platelet Count 219 K/uL (130-400); RDW Coefficient of Variation 12.5 % (11.5-14.5); RDW Standard Deviation 42.1 fL (36.4-46.3); Red Blood Count 4.23 M/uL (4.2-5.4); White Blood Count 4.19 K/uL (4.8-10.8)
[2021-03-14 09:29] LABS: BUN Creatinine Ratio 18.5 (10-20); Calcium 8.8 mg/dl (8.5-10.1); Creatinine Clr Calc Pharmacy 142.7 ml/min; Est GFR (Non-African American) 125.1 ml/min
[2021-03-14] MEDS: TAMSULOSIN HCL 0.4 MG CAP PO SCH (09:47)
[2021-03-14] MEDS: oxyCODONE HCL IR 5 MG TAB (IMMEDIATE RELEASE) PO PRN ×2 (11:31→17:46)
[2021-03-14] MEDS: ONDANSETRON INJ 2 MG/ML 2 ML VIAL IV PRN ×2 (11:51→18:50)
[2021-03-14] MEDS ORDERED: HYDROmorphone INJ 1 MG/ML SYRINGE IV STA (12:44)
[2021-03-14] MEDS ORDERED: bisacodyL 5 MG TABEC PO ONE (15:21)
[2021-03-14] MEDS: IBUPROFEN 600 MG TAB PO PRN (17:48)
--- NOTE | 2021-03-14 18:41 | XRay Report ---
XR KUB/Abdomen 1 view CLINICAL HISTORY: Urinary retention. Constipation. COMPARISON STUDY: 03/10/2021 FINDINGS: There is no pathologic bowel dilatation. There is mild to moderate scattered colonic stool. No urinary tract calculi are visualized. Conventional radiographic evaluation. IMPRESSION: 1. No urinary tract calculi identified 2. Nonobstructive bowel gas pattern 3. Mild to moderate colonic stool ACT 112: Negative or not required by law. Electronically signed by: Yaron Chase M.D. 03/14/2021 6:40 PM
[2021-03-14] MEDS: ACETAMINOPHEN 1000 MG/100 ML IV IV PRN (18:56)
[2021-03-14] MEDS: hydrOXYzine HCl 25 MG TAB PO PRN (19:42)
[2021-03-14] MEDS ORDERED: KETOROLAC TROMETHAMINE 15 MG/ML VIAL IV ONE (20:47)
[2021-03-15] MEDS: PHENAZOPYRIDINE HCL 100 MG TAB PO PRN (06:41)
[2021-03-15] MEDS: oxyCODONE HCL IR 5 MG TAB (IMMEDIATE RELEASE) PO PRN (06:41)
[2021-03-15] MEDS: CITALOPRAM 20 MG TAB PO SCH (08:28)
[2021-03-15] MEDS: MIRABEGRON ER 25 MG TAB PO SCH (08:29)
[2021-03-15] MEDS: DOCUSATE SODIUM 100 MG CAP PO SCH (08:29)
[2021-03-15] MEDS: TAMSULOSIN HCL 0.4 MG CAP PO SCH (08:30)
[2021-03-15] MEDS: IBUPROFEN 600 MG TAB PO PRN (08:33)
--- NOTE | 2021-03-15 10:26 | Discharge Summary ---
Date of Service March 15, 2021 Admission HPI Per Admitting Provider Damaris is a healthy 25-year-old female with a history of Hyperthyroidism, GERD, Depression, Anxiety, Migraine Headaches, and Nephrolithiasis who presents acutely to [facility] ER today complaining of sudden onset severe right flank that radiates to her right groin and right vagina. The pain is colicky and severe. It woke her from sleep at 0330 this morning. She has associated some associated nausea but has not vomited. Antiemetics given in the ER have been effective for suppressing her nausea. Patient denies any fevers, chills, or dysuria. Patient has been given IV fluids, IV Dilaudid, and IV Zofran in the ER. Her pain is controlled at this time. Patient denies any cough, sputum production, loss of sense of taste, loss of sense of smell, or any symptoms concerning for coronavirus. She denies being . Patient was hospitalized in November 2020 with nephrolithiasis. Stone analysis at that time showed the composition of her kidney stone being 80% calcium oxalate, 10% carbonate apatite, and 10% uric acid. Patient offers no other complaints or concerns. Admission Exam Per Admitting Provider GENERAL: Patient is being seen in room 322. She is in no acute distress. HEENT: Head is atraumatic, normocephalic. Sclerae anicteric. EOM's intact. Facies symmetric. No perioral cyanosis. NECK: No JVD. JVP is not elevated. Carotid upstrokes are + 2 bilaterally. CHEST/LUNGS: Clear to auscultation throughout all lung good. No wheezes, rales, or crackles. CVS: S1 and S2 are regular without obvious murmurs, gallops, or rubs. No abdominal aortic or renal bruits. ABDOMINAL EXAM: Bowel sounds are present. No masses or organomegaly. No focal tenderness, CVA's non-tender to jarring. No guarding, rigidity, or rebound tenderness. EXTREMITIES: No clubbing or cyanosis. No edema. Intact posterior tibial and radial pulses bilaterally. NEUROLOGIC EXAM: Patient is awake, alert, and oriented. Pleasant and liat ative. Answers questions appropriately. Speech is clear. Normal movement in all 4 extremities. Gait pattern is unremarkable. Urine Analysis as shown below. Negative for urine bacteria. +3 blood. Negative for urine nitrite, negative for leukocyte esterase. Principal Diagnosis Right Ureteral Calculus Discharge Exam Constitutional well developed, well nourished and comfortable; no acute distress Eyes + eyelid abnormality and PERRL ENMT mmm Neck trachea midline, no thyromegaly Respiratory normal respiratory effort, lungs clear to auscultation Cardiovascular RRR, no murmur, no edema Gastrointestinal (Abdomen) normal bowel sounds, soft, nontender, no hepatosplenomegaly Musculoskeletal no cyanosis or clubbing, extremities motor strength 5/5 Skin no rashes, warm and dry Neurologic patellar DTR's 2+ bilat, sensation intact and PERRL, EOMI, accommodation nl, no face palsy, no dysarthria Psychiatric A+Ox3, euthymic affect Genitourinary no CVA tenderness Lymphatic no cervical or axillary lymphadenopathy Discharge Data Allergies Allergy/AdvReac Type Severity Reaction Status Date / Time No Known Allergies Allergy Verified 03/08/21 08:16 Consultations 03/08/21 09:15 ED Decision to Admit Stat 03/08/21 09:41 Consult Urology Routine Procedures Performed Operation Date: 03/10/21 11:00 Actual Procedures p right stent placement.(Right) - Chris Booker DO s Right Cystoscopy, Right Ureteroscopy, Ureteral dialation, stone basket extraction, retrograde pyleogram, (Right) - Chris Booker DO Ordered Studies 03/08/21 04:55 US renal/blad retro comp Urgent 03/08/21 10:14 CT abd pelvis wo con Urgent 03/10/21 15:00 FL retrograde includes kub Routine Hospital Course (1) Ureteral calculus, right: Presented with sudden onset severe RIGHT flank pain with radiation to groin Imaging with 4mm stone within right UVJ with mild fullness without glenda hydronephrosis UA without signs of infection Urology consulted s/p cystoscopy with stent placement on 03/10 Continued on Flomax, Myrbetriq, Pyridium prn Stent self removed on 03/14 Pain control with Dilaudid and Toradol and weaned to ibuprofen/oxycodone. Educated on bowel regimen. KUB with mod stool. She did have small BM day of discharge Kidney function stable, afebrile, no WBC Discharged with short course of oxycodone and Pyridium prn TO have follow up with Urology in 1-[address] Megan -- office calling with appt (2) Urinary retention: callaway placed on 03/09 no issues voiding since removal up until evening 03/14 after stent removed. Discontinued mybetriq at that time and no further issues (3) Nausea: Resolved. Antiemetics prn (4) History of renal calculi: stones in the pelvis of kidneys 3mm stone in distal right ureter at the junction of bladder Stone analysis pending at d/c see above (5) MARCOS (generalized anxiety disorder): Citalopram continued DVT Prophylaxis --SCDs, Frequent ambulation Total Time Total Time Spent Total Time Spent (In Minutes): 60 Discharge Plan Discharge Items Patient Disposition: Home - Self-Care Reason For Visit: KIDNEY STONE Discharge Diagnosis: Right Sided Kidney Stone Goals: You have been hospitalized for an urgent problem which required surgery. During your stay at [facility], we have made an effort to correct the problem that brought you to the hospital while keeping you as comfortable as possible. Surgery and medications were used to bring your condition under control and your discharge instructions will include directions for any medications you should take after leaving the hospital. Please make sure to follow the advice of your surgeon regarding follow up with the surgeon and with your primary care provider. Activity: Resume your previous activity Non-emergency contact: Primary Care Provider and Urologist Call non-emergency contact if: you have any medication questions, your symptoms worsen and your pain is concerning for you Follow-up/Referrals: Luisa Roldan MD [Primary Care Provider] - Chris Booker DO [Physician] - (2 weeks Office/Maty will call patient will f/u hospital visit.) Diet: Regular Addtl Attending Provider Instructions: You were hospitalized for abdominal pain and found to have a stone on your right side. Urology was consulted. You had a stent placed which has been removed yesterday. The stone has been sent for analysis and is pending at time of discharge. You will need to have follow up with Urology to monitor your progress/review results. You have been sent a short prescription for oxycodone for breakthrough pain and can use acetaminophen and ibuprofen for non-severe pain. Please do not exceed 3,000mg of acetaminophen or 2,400mg of ibuprofen in a 24 hour period of time. You have also been sent several pills of Pyridium to help with bladder spasms if needed, but this should resolve now that the stent is removed. Continue to stay well hydrated and push oral fluids. Please follow up with your primary care provider in the next 1-2 weeks to monitor your progress. Please return to the emergency department with any fever, worsening pain, shortness of breath, or for any other symptoms that are concerning for you. It has been a pleasure being a part of the medical team providing for you while you have been in the hospital. Take care! Pending Studies at Discharge: Yes Studies:: Stone Analysis Stand-Alone Forms: My [facility] [employer], Opioid Pain Management, Work/School Release, Smoking Cessation Medications and DC Order Prescriptions: New oxycodone 5 mg Tablet 5 mg PO Q6 PRN (Reason: pain) Qty: 12 RF: 0 phenazopyridine [Pyridium] 100 mg Tablet 100 mg PO TID PRN (Reason: pain) Qty: 6 RF: 0 Continued aluminum chloride [Drysol] 20 % solution 1 applic topical .COMPLEX Qty: 35 RF: 5 hydroxyzine pamoate [Vistaril] 25 mg capsule 25 mg PO DAILY PRN (Reason: Anxiety) RF: 0 citalopram 20 mg tablet 20 mg PO QAM RF: 0 Discharge Orders: Discharge Order (Routine); Ordered 03/15/21 Ordered By: Natasha Dorsey/Other Patient Handouts: Preventing Kidney Stones Admission Data Admit Date/Time: 03/09/21 21:02 Attending Provider: Lamont Pickering Admit Provider: Mati Miguel Primary Care Provider: Luisa Roldan Other Providers: Mati Miguel ; Eliel Guzman Other Interventions: Discharge Summary Assessment (RN) Last Done: 03/15/21 10:35 Coding Level of Care Code D/C Day Management >30 mins Diagnoses Ureteral calculus, right N20.1 Urinary retention R33.9 Nausea R11.0 History of renal calculi Z87.442 MARCOS (generalized anxiety disorder) F41.1
[2021-03-17 11:56] LABS: Component 2 DNR; Source URETERAL STONE
== END 2021-03-15 12:00 | disposition home or self-care (01) | DRG 661 ==
LOC: ED 04:40 → 3E 04:40 → SUATTDRO 03-09 21:02

== ENCOUNTER 2021-05-27 07:12 | Observation (INO) ==
[2021-05-27] MEDS ORDERED: KETOROLAC TROMETHAMINE 15 MG/ML VIAL IV STA (07:23)
[2021-05-27] MEDS ORDERED: ONDANSETRON INJ 2 MG/ML 2 ML VIAL IV STA ×2 (07:23→08:25)
[2021-05-27] MEDS ORDERED: HYDROmorphone INJ 0.5 MG/0.5 ML SYR IV STA (07:23)
[2021-05-27] MEDS ORDERED: SODIUM CHLORIDE 0.9% 1000ML 1,000 ML IV SCH (07:30)
--- NOTE | 2021-05-27 07:34 | Emergency Department Note ---
History of Present Illness General Chief complaint: Flank Pain Stated complaint: LEFT FLANK PAIN Time Seen by Provider: 05/27/21 07:19 History of Present Illness Maximum Pain Intensity: 7 This is a 26-year-old female with a well-documented history of renal calculi the presents to the emergency department via private vehicle with complaints of "left flank pain". The patient notes that last evening she began with left low back pain. She notes that this minimally radiates to the left side of the abdomen. No trauma or injury. There is associated nausea and sweating. She denies any vomiting, fevers or chills. No aggravating or alleviating factors. She denies any hematuria. There is some mild dysuria. Current pain 04/23. She follows with [facility] urology. She denies taking any medication this morning. Home Medications Medication Instructions Recorded Confirmed Type hydroxyzine pamoate 25 mg capsule 25 mg PO DAILY PRN 03/08/21 05/27/21 History (Vistaril) desogestrel 0.15 mg-ethinyl 1 tab PO .COMPLEX #84 tab 04/15/21 05/27/21 Rx estradiol 0.03 mg tablet (Apri) methocarbamol 500 mg tablet 500 mg PO TID #90 tab 05/05/21 05/27/21 Rx bupropion HCl 150 mg 24 hr tablet, 150 mg PO QAM 05/27/21 05/27/21 History extended release (Wellbutrin XL) meloxicam 15 mg tablet (Mobic) 15 mg PO DAILY 05/27/21 05/27/21 History Allergies Allergy/AdvReac Type Severity Reaction Status Date / Time No Known Allergies Allergy Verified 05/27/21 07:42 Past Med/Surg History Medical History Anxiety Depression GERD (gastroesophageal reflux disease) On occasions Hyperthyroidism Not on any medication Low TSH level Migraine Ovarian cyst Pyelonephritis Ureteral calculus, left Vitamin D deficiency Surgical History Nasal fracture Repair of nasal fracture S/P cystoscopy with ureteral stent placement 12/05/20 Dr. Lamont Ambrose- Cystoscopy, Left ureteroscopy, Laser lithotripsy, Stone basket extraction of stone, Left retrograde pyelogram, Left ureteral stent placement Family History Mother Breast cancer Other Cancer Hypertension Kidney stones Denies family history of Ovarian cancer Prostate cancer Heart disease Myocardial infarction Colorectal cancer Social History Smoking Status: Never smoker Second Hand Exposure: No; Hx Alcohol Use: Yes Alcohol type: wine and hard liquor Hx Substance Use: No Preferred Language: Ecuadorean Communication Ability: Effective Visual Impairment: No Limitations Hearing Ability: Normal Epic [facility] Specialists Required: No Beliefs That Will Affect Care: None marital status: Single Current Living Situation: Parent Current Living Situation Comment: lives with parents and child current occupational status: employed Feels Safe at Home: Yes Childhood Exposure to Second-Hand Smoke: No Physical Activity Frequency: Daily Seatbelt Use: always Sunscreen Use: Yes Assistive Devices: None Review of Systems A total of 10 systems reviewed and were otherwise negative Physical Exam Vital Signs Vital Signs - 24 hr 05/27/21 07:15 05/27/21 07:45 05/27/21 07:51 Temperature 36.8 C Temperature Source Oral Pulse Rate 102 H Pulse Rate [Finger] 85 Pulse Rate from SpO2 Sensor Respiratory Rate 20 21 Respiratory Effort / Characteristics Non-Labored Spontaneous Respiratory Depth Normal Respiratory Pattern Regular Blood Pressure 128/79 112/80 Blood Pressure [Left Arm] 112/80 Blood Pressure Mean 95 90 Blood Pressure Mean [Left Arm] 90 Blood Pressure Position [Left Arm] Sitting Pulse Oximetry 98 98 Oxygen Delivery Method Room Air Room Air Room Air Sepsis Recent Fever Within 48 Hours No Sepsis New/Unexplained Change in Mental Status No Sepsis Action Taken by Nursing No Action Required 05/27/21 08:50 05/27/21 08:51 05/27/21 09:01 Temperature Temperature Source Pulse Rate 88 81 Pulse Rate [Finger] 86 Pulse Rate from SpO2 Sensor 83 77 Respiratory Rate 20 15 23 Respiratory Effort / Characteristics Non-Labored Spontaneous Respiratory Depth Normal Respiratory Pattern Regular Blood Pressure 120/73 102/68 Blood Pressure [Left Arm] 120/73 Blood Pressure Mean 88 79 Blood Pressure Mean [Left Arm] 88 Blood Pressure Position [Left Arm] Sitting Pulse Oximetry 100 97 99 Oxygen Delivery Method Room Air Room Air Room Air Sepsis Recent Fever Within 48 Hours Sepsis New/Unexplained Change in Mental Status Sepsis Action Taken by Nursing 05/27/21 09:30 05/27/21 10:00 05/27/21 10:30 Temperature Temperature Source Pulse Rate 81 Pulse Rate [Finger] Pulse Rate from SpO2 Sensor 77 72 Respiratory Rate 18 13 Respiratory Effort / Characteristics Respiratory Depth Respiratory Pattern Blood Pressure 123/70 105/69 106/61 Blood Pressure [Left Arm] Blood Pressure Mean 87 81 76 Blood Pressure Mean [Left Arm] Blood Pressure Position [Left Arm] Pulse Oximetry 100 98 Oxygen Delivery Method Room Air Room Air Room Air Sepsis Recent Fever Within 48 Hours Sepsis New/Unexplained Change in Mental Status Sepsis Action Taken by Nursing 05/27/21 10:44 05/27/21 11:00 05/27/21 11:30 Temperature Temperature Source Pulse Rate 78 72 Pulse Rate [Finger] 84 Pulse Rate from SpO2 Sensor 79 74 Respiratory Rate 22 19 18 Respiratory Effort / Characteristics Non-Labored Spontaneous Respiratory Depth Normal Respiratory Pattern Regular Blood Pressure 114/63 105/68 Blood Pressure [Left Arm] 106/61 Blood Pressure Mean 80 80 Blood Pressure Mean [Left Arm] 76 Blood Pressure Position [Left Arm] Sitting Pulse Oximetry 98 97 98 Oxygen Delivery Method Room Air Room Air Room Air Sepsis Recent Fever Within 48 Hours Sepsis New/Unexplained Change in Mental Status Sepsis Action Taken by Nursing 05/27/21 12:01 05/27/21 12:30 05/27/21 13:02 Temperature Temperature Source Pulse Rate 77 73 78 Pulse Rate [Finger] Pulse Rate from SpO2 Sensor 82 72 80 Respiratory Rate 19 17 19 Respiratory Effort / Characteristics Respiratory Depth Respiratory Pattern Blood Pressure 115/76 102/68 125/80 Blood Pressure [Left Arm] Blood Pressure Mean 89 79 95 Blood Pressure Mean [Left Arm] Blood Pressure Position [Left Arm] Pulse Oximetry 100 98 99 Oxygen Delivery Method Room Air Room Air Room Air Sepsis Recent Fever Within 48 Hours Sepsis New/Unexplained Change in Mental Status Sepsis Action Taken by Nursing 05/27/21 13:32 Temperature Temperature Source Pulse Rate 81 Pulse Rate [Finger] Pulse Rate from SpO2 Sensor Respiratory Rate 16 Respiratory Effort / Characteristics Respiratory Depth Respiratory Pattern Blood Pressure 106/67 Blood Pressure [Left Arm] Blood Pressure Mean 80 Blood Pressure Mean [Left Arm] Blood Pressure Position [Left Arm] Pulse Oximetry Oxygen Delivery Method Room Air Sepsis Recent Fever Within 48 Hours Sepsis New/Unexplained Change in Mental Status Sepsis Action Taken by Nursing VITAL SIGNS - Vital signs and nursing notes were reviewed. Stable and afebrile. Mildly tachycardic. GENERAL -26-year-old female appearing her stated age who is in no acute distress but appears to be in pain and is standing at the bedside. Communicates well with provider and answers questions appropriately. SKIN - Without rashes. HEAD - NC/AT. EYES - Sclera anicteric. EARS - No deformities of external structures noted on gross examination bilaterally. NOSE - Midline and without cyanosis. No epistaxis or purulent drainage noted. MOUTH/OROPHARYNX - Without perioral cyanosis. NECK - Neck with FROM. No nuchal rigidity. LUNGS - Chest wall symmetric without accessory muscle use, intercostals retractions, or central cyanosis. Normal vesicular breath sounds CTA B/L. No wheezes, rales, or rhonchi appreciated. CARDIAC - RRR with S1/S2. No murmur, rubs, or gallops appreciated. NEUROLOGIC - Cranial nerves II through XII grossly intact. PSYCH - A&O, and cooperates fully with examiner. Pt is very pleasant and interacts well with examiner. Course Administered Medications Hydromorphone HCl (Hydromorphone Inj 0.5 Mg/0.5 Ml Syr) 0.5 mg IV Q30M PRN PRN Reason: Pain Stop: 06/10/21 07:34 Last Admin: 05/27/21 13:33 Dose: 0.5 mg Documented by: [id number] Admin: 05/27/21 12:01 Dose: 0.5 mg Documented by: [id number] Admin: 05/27/21 10:43 Dose: 0.5 mg Documented by: [id number] Admin: 05/27/21 09:41 Dose: 0.5 mg Documented by: [id number] Admin: 05/27/21 08:22 Dose: 0.5 mg Documented by: [id number] Discontinued Medications Hydromorphone HCl (Hydromorphone Inj 0.5 Mg/0.5 Ml Syr) 0.5 mg IV NOW STA Stop: 05/27/21 07:24 Last Admin: 05/27/21 07:37 Dose: 0.5 mg Documented by: [id number] Sodium Chloride (Nss 1000ml) 1,000 mls @ 999 mls/hr IV .Q1H1M HAM Stop: 05/27/21 08:30 Last Infusion: 05/27/21 08:39 Dose: 0 mls/hr Documented by: [id number] Admin: 05/27/21 07:37 Dose: 999 mls/hr Documented by: [id number] Promethazine HCl (Phenergan) 12.5 mg in 50.5 mls @ 202 mls/hr IV NOW STA Stop: 05/27/21 09:08 Last Infusion: 05/27/21 09:21 Dose: 0 mls/hr Documented by: [id number] Admin: 05/27/21 09:02 Dose: 202 mls/hr Documented by: [id number] Ketorolac Tromethamine (Ketorolac Tromethamine 15 Mg/Ml Vial) 15 mg IV NOW STA Stop: 05/27/21 07:24 Last Admin: 05/27/21 07:37 Dose: 15 mg Documented by: [id number] Ondansetron HCl (Ondansetron Inj 2 Mg/Ml 2 Ml Vial) 4 mg IV NOW STA Stop: 05/27/21 07:24 Last Admin: 05/27/21 07:37 Dose: 4 mg Documented by: [id number] Ondansetron HCl (Ondansetron Inj 2 Mg/Ml 2 Ml Vial) 4 mg IV NOW STA Stop: 05/27/21 08:26 Last Admin: 05/27/21 08:29 Dose: 4 mg Documented by: [id number] Medical Decision Making Laboratory Data Result diagrams: 05/27/21 07:35 05/27/21 07:35 Lab Results 05/27/21 05/27/21 05/27/21 Range/Units 07:35 07:35 07:41 WBC 6.21 (4.8-10.8) K/uL RBC 4.50 (4.2-5.4) M/uL Hgb 13.2 (12.0-16.0) g/dL Hct 39.3 (37-47) % MCV 87.3 (80-100) fL MCH 29.3 (25-34) pg MCHC 33.6 (32-36) g/dL RDW Std Deviation 40.7 (36.4-46.3) fL RDW Coeff of Baldo 12.6 (11.5-14.5) % Plt Count 281 (130-400) K/uL MPV 9.8 (7.4-10.4) fL Immature Gran % (Auto) 0.2 % Neut % (Auto) 63.6 % Lymph % (Auto) 23.8 % [place] % (Auto) 11.6 % Eos % (Auto) 0.5 % Baso % (Auto) 0.3 % Neut # (Auto) 3.95 (1.4-6.5) K/uL Lymph # (Auto) 1.48 (1.2-3.4) K/uL [place] # (Auto) 0.72 H (0.11-0.59) K/uL Eos # (Auto) 0.03 (0-0.5) K/uL Baso # (Auto) 0.02 (0-0.2) K/uL Immature Gran # (Auto) 0.01 (0.00-0.02) K/uL Sodium 138 (136-145) mmol/L Potassium 3.9 (3.5-5.1) mmol/L Chloride 109 H (98-107) mmol/L Carbon Dioxide 22 (21-32) mmol/L Anion Gap 6.0 (3-11) BUN 7 (7-18) mg/dl Creatinine 0.66 (0.6-1.2) mg/dl Est Cr Clr Drug Dosing 127.4 ml/min Est GFR ( Amer) 140.3 ml/min Est GFR (Non-Af Amer) 121.1 ml/min BUN/Creatinine Ratio 11.2 (10-20) Glucose 139 H (70-99) mg/dl Calcium 8.9 (8.5-10.1) mg/dl Total Bilirubin 0.4 (0.2-1) mg/dl AST 13 L (15-37) U/L ALT 21 (12-78) U/L Alkaline Phosphatase 78 (45-117) U/L Total Protein 7.8 (6.4-8.2) gm/dl Albumin 3.6 (3.4-5.0) gm/dl Globulin 4.2 H (2.5-4.0) gm/dl Albumin/Globulin Ratio 0.9 (0.9-2) Urine Color Yellow Urine Appearance Clear (Clear) Urine pH 6.5 (4.5-7.5) Ur Specific Star 1.014 (1.000-1.030) Urine Protein Negative (Negative) Urine Glucose (UA) Negative (Negative) Urine Ketones Negative (Negative) Urine Blood Negative (Negative) Urine Nitrite Negative (Negative) Urine Bilirubin Negative (Negative) Urine Urobilinogen Negative (Negative) Ur Leukocyte Esterase Trace H (Negative) Urine WBC (Auto) 1-5 (0-5) /hpf Urine RBC (Auto) 0-4 (0-4) /hpf U Hyaline Cast (Auto) 1-5 (0-5) /lpf U Epithel Cells (Auto) >30 H (0-5) /lpf Urine Bacteria (Auto) 1+ H (Negative) POC Ur Test (NEG) COVID-19 Eval Order 05/27/21 05/27/21 Range/Units 07:41 14:14 WBC (4.8-10.8) K/uL RBC (4.2-5.4) M/uL Hgb (12.0-16.0) g/dL Hct (37-47) % MCV (80-100) fL MCH (25-34) pg MCHC (32-36) g/dL RDW Std Deviation (36.4-46.3) fL RDW Coeff of Baldo (11.5-14.5) % Plt Count (130-400) K/uL MPV (7.4-10.4) fL Immature Gran % (Auto) % Neut % (Auto) % Lymph % (Auto) % [place] % (Auto) % Eos % (Auto) % Baso % (Auto) % Neut # (Auto) (1.4-6.5) K/uL Lymph # (Auto) (1.2-3.4) K/uL [place] # (Auto) (0.11-0.59) K/uL Eos # (Auto) (0-0.5) K/uL Baso # (Auto) (0-0.2) K/uL Immature Gran # (Auto) (0.00-0.02) K/uL Sodium (136-145) mmol/L Potassium (3.5-5.1) mmol/L Chloride (98-107) mmol/L Carbon Dioxide (21-32) mmol/L Anion Gap (3-11) BUN (7-18) mg/dl Creatinine (0.6-1.2) mg/dl Est Cr Clr Drug Dosing ml/min Est GFR ( Amer) ml/min Est GFR (Non-Af Amer) ml/min BUN/Creatinine Ratio (10-20) Glucose (70-99) mg/dl Calcium (8.5-10.1) mg/dl Total Bilirubin (0.2-1) mg/dl AST (15-37) U/L ALT (12-78) U/L Alkaline Phosphatase (45-117) U/L Total Protein (6.4-8.2) gm/dl Albumin (3.4-5.0) gm/dl Globulin (2.5-4.0) gm/dl Albumin/Globulin Ratio (0.9-2) Urine Color Urine Appearance (Clear) Urine pH (4.5-7.5) Ur Specific Star (1.000-1.030) Urine Protein (Negative) Urine Glucose (UA) (Negative) Urine Ketones (Negative) Urine Blood (Negative) Urine Nitrite (Negative) Urine Bilirubin (Negative) Urine Urobilinogen (Negative) Ur Leukocyte Esterase (Negative) Urine WBC (Auto) (0-5) /hpf Urine RBC (Auto) (0-4) /hpf U Hyaline Cast (Auto) (0-5) /lpf U Epithel Cells (Auto) (0-5) /lpf Urine Bacteria (Auto) (Negative) POC Ur Test NEG (NEG) COVID-19 Eval Order Covid19 at [facility] Imaging Data Radiologist's Impression: KUB X-Ray 05/27/21 07:23 KUB HISTORY: Acute left-sided flank pain L flank pain COMPARISON: KUB 03/14/2021 FINDINGS: Nonobstructive bowel gas pattern. Mild to moderate fecal retention. Renal shadows are partially obscured by bowel gas. No renal or ureteral calculi identified. No pneumoperitoneum or pneumatosis. No fracture. IMPRESSION: No renal or ureteral calculi identified. ACT 112: Negative or not required by law. The above report was generated using voice recognition software. It may contain grammatical, syntax or spelling errors. Electronically signed by: Dallas Mcdonald M.D. 05/27/2021 8:05 AM Renal Ultrasound 05/27/21 07:23 US renal/blad retro comp HISTORY: 26 years-old Female L flank pain acute left-sided flank pain COMPARISON: KUB of same day, CT abdomen pelvis and renal ultrasound 03/08/2021 TECHNIQUE: Multiple real-time sonographic images of the kidneys and urinary bladder were obtained assessing grayscale appearance and color flow FINDINGS: The right kidney measures 11.6 cm in length. The previously noted 3 mm calculus of the inferior pole right kidney is not definitively seen. No right-sided hydronephrosis or suspicious mass lesion. Cortical medullary differentiation is preserved. The left kidney measures 11.97 m in length. 3 mm nonobstructing calculus of the inferior pole left kidney redemonstrated. No left-sided hydronephrosis or suspicious mass lesion. Cortical medullary differentiation is preserved. Decompressed urinary bladder with bilateral ureteral jets noted. IMPRESSION: 1. Left nephrolithiasis without hydronephrosis. 2. The previously noted right renal calculi are not identified by ultrasound. 3. Decompressed urinary bladder. ACT 112: Negative or not required by law. The above report was generated using voice recognition software. It may contain grammatical, syntax or spelling errors. Electronically signed by: Dallas Mcdonald M.D. 05/27/2021 8:27 AM Abdomen/Pelvis CT 05/27/21 09:53 CT SCAN OF THE ABDOMEN AND PELVIS WITHOUT CONTRAST CLINICAL HISTORY: Left low back/flank pain. Hx of kidney stones COMPARISON STUDY: March 08, 2021 TECHNIQUE: CT scan of the abdomen and pelvis was performed from the lung bases to the proximal femurs. Images are reviewed in the axial, sagittal, and coronal planes. IV contrast was not administered for this examination. A dose lowering technique was utilized adhering to the principles of ALARA. CT DOSE: 416.20 mGy.cm FINDINGS: Lower chest: The heart is normal in size and configuration, without pericardial effusion. The lung bases and pleural spaces are clear. Liver: The unenhanced liver is normal in size, contour, and attenuation. There is no intrahepatic biliary ductal dilatation. Gallbladder: Unremarkable. Spleen: Normal in size and attenuation. Pancreas: Unremarkable. Adrenal glands: Unremarkable. Kidneys: The unenhanced kidneys are normal in size without hydronephrosis. There is no contour deforming renal mass lesion. Punctate calculi are seen within left renal pelvis. Left ureter is nondilated. Punctate calculus is seen within left lower pelvis, in close proximity of anatomical region of the left distal ureter (3/370) Bowel: The small bowel and colon are normal in course and caliber. Appendix is not well seen. Evaluation of the bowel is limited due to lack of contrast. Peritoneum: There is no intraperitoneal free air or abdominal ascites. Vasculature: The abdominal aorta is normal in course and caliber. Adenopathy: Few retroperitoneal lymph nodes are seen, measuring less than 1 cm in short axis, nonpathological by CT size criteria. Pelvic viscera: Urinary bladder is decompressed which limits evaluation. Uterus and adnexa shows normal appearance. No evidence of free fluid within cul-de-sac. Skeletal structures: Multiple Schmorl nodes are seen within thoracolumbar spine. IMPRESSION: 1. Questionable calculus in the close proximity of the nondilated left ureter within pelvic region which may or may not represent ureterolithiasis. 2. Multiple punctate calculi within nondilated left renal pelvis. 3. Nondilated loops of bowel. Appendix is not well seen. ACT 112: Negative or not required by law. The above report was generated using voice recognition software. It may contain grammatical, syntax or spelling errors. Electronically signed by: Fior Perez DO 05/27/2021 11:09 AM [facility] Narrative Patient was seen and evaluated as above in room C03. Review was performed of nursing notes and vital signs. I did review pertinent previous visits and pat ient history. After obtaining a thorough history and physical examination the above work up was performed. Patient presents to us today with left flank/left lower back pain. She has a history of kidney stones. This is somewhat similar but she notes that instead of the pain being mostly in the lower abdomen/groin region this is mostly in the back. No trauma or injury. Vital signs stable. She is nontoxic on exam but does appear to be in pain. I did review the patient's previous pertinent visits. She was here on 12/03/2020 as well as 03/08/2021 for kidney stones. She had a procedure performed by Dr. Booker on 03/10/2021 that included cystoscopy, ureteroscopy, ureteral dilatation with stent placement. Patient has been doing well overall. Unfortunately she notes that last evening she began with low back discomfort that is concerning for kidney stone. Current pain at this time is rated as a 7/10. IV access was established. Labs were drawn. She was given IV Dilaudid, IV Toradol, IV Zofran and IV fluids. KUB and ultrasound of the kidneys/bladder were obtained. This was ordered in an effort to minimize radiation as I will note that she had a CT scan of the abdomen pelvis just a few months ago in February. CT scan at that time revealed: "3 mm calculus within urinary bladder lumen near right ureterovesicular junction likely representing possible stone. No evidence of hydronephrosis or hydroureter. Punctate nonobstructive calculi are seen within right and left renal pelvises." Patient was reevaluated post medication administration and was resting comfortably. UPT negative. CBC reveals no leukocytosis or concerning anemia. Urinalysis reveals trace leukocytes, greater than 30 epithelial cells, 1+ bacteria. No blood. Metabolic panel reveals no emergent metabolic disturbance. Glucose mildly elevated at 139. There is no evidence of kidney failure. KUB and ultrasound are negative for ureteral calculi/evidence of obstruction. I was notified by the nurse that the patient had return of nausea. Another 4 mg of IV Zofran was ordered. Patient did utilize as needed Dilaudid. Patient's nausea persisted. 12.5 mg of IV Phenergan was ordered. With the patient's history of renal calculi in the setting of clinical presentation here today which seems consistent with such I did discuss this with urology. I spoke with LAURA Dutton. We reviewed the case. Ant mmendation was to proceed with a CT scan of the abdomen pelvis without contrast to further eval. This was ordered. Results as above. This did not reveal any clear evidence of obstructing calculi. I discussed this again with urology. In discussing this with urology he was noted that the patient's discomfort is not felt to be of urologic origin. Patient has required multiple rounds of IV analg esics and IV narcotics here to manage her discomfort. Patient prefers inpatient management. Given her continued return of pain despite IV analgesics I believe it is reasonable. For this reason I did discuss the case with the hospitalist. Please refer to further documentation regarding her stay. Covid test ordered. GCS: 15 In the evaluation and treatment of this patient the following differential diagnoses were entertained: UTI, pyelonephritis, ureteral calculi, ectopic , ovarian torsion, cauda equina syndrome, sprain, strain, fracture, dislocation, diverticulitis, appendicitis, splenic injury, among others. Impression & Plan Acute left flank pain, Dysuria, Nausea Discharge Plan Visit Data Chief Complaint: Flank Pain Stated Complaint: LEFT FLANK PAIN ED Provider: Lamont Tejeda ED Midlevel Provider: David Schwarz Discharge Problem: Acute left flank pain, Dysuria, Nausea Patient Disposition: Admitted As Inpatient Condition: Good Forms Stand Alone [facility]: [facility] Prescriptions: No Action desogestrel-ethinyl estradiol [Apri] 0.15-0.03 mg tablet 1 tab PO .COMPLEX Qty: 84 RF: 3 methocarbamol 500 mg tablet 500 mg PO TID Qty: 90 RF: 0 hydroxyzine pamoate [Vistaril] 25 mg capsule 25 mg PO DAILY PRN (Reason: Anxiety) RF: 0 meloxicam [Mobic] 15 mg tablet 15 mg PO DAILY RF: 0 bupropion HCl [Wellbutrin XL] 150 mg tablet extended release 24 hr 150 mg PO QAM RF: 0 Referrals Referrals: Luisa Roldan MD [Primary Care Provider] -
[2021-05-27 07:51] LABS: Basophils # (auto) 0.02 K/uL (0-0.2); Basophils % (auto) 0.3 %; Eosinophils # (auto) 0.03 K/uL (0-0.5); Eosinophils % (auto) 0.5 %; Hematocrit (blood only) 39.3 % (37-47); Hemoglobin 13.2 g/dL (12.0-16.0); Immature Granulocytes # (auto) 0.01 K/uL (0.00-0.02); Immature Granulocytes % (auto) 0.2 %; Lymphocytes # (auto) 1.48 K/uL (1.2-3.4); Lymphocytes % (auto) 23.8 %; Mean Corpuscular Hemoglobin 29.3 pg (25-34); Mean Corpuscular Hgb Conc 33.6 g/dL (32-36); Mean Corpuscular Volume 87.3 fL (80-100); Mean Platelet Volume 9.8 fL (7.4-10.4); Monocytes # (auto) 0.72 K/uL (0.11-0.59); Monocytes % (auto) 11.6 %; Neutrophils # (auto) 3.95 K/uL (1.4-6.5); Neutrophils % (auto) 63.6 %; Platelet Count 281 K/uL (130-400); RDW Coefficient of Variation 12.6 % (11.5-14.5); RDW Standard Deviation 40.7 fL (36.4-46.3); White Blood Count 6.21 K/uL (4.8-10.8)
[2021-05-27 07:55] LABS: Appearance Urine Clear (Clear); Bacteria Urine Automated 1+ (Negative); Bilirubin Urine Negative (Negative); Blood Urine Negative (Negative); Color Urine Yellow; Epithelial Cell Urine Auto >30 /lpf (0-5); Glucose Urine UA Negative (Negative); Ketones Urine Negative (Negative); Leukocyte Esterase Urine Trace (Negative); Nitrite Urine Negative (Negative); Protein Urine Negative (Negative); RBC Urine Automated 0-4 /hpf (0-4); Specific Gravity Urine 1.014 (1.000-1.030); Urobilinogen Urine Negative (Negative); pH Urine 6.5 (4.5-7.5)
--- NOTE | 2021-05-27 08:06 | XRay Report ---
KUB HISTORY: Acute left-sided flank pain L flank pain COMPARISON: KUB 03/14/2021 FINDINGS: Nonobstructive bowel gas pattern. Mild to moderate fecal retention. Renal shadows are part ially obscured by bowel gas. No renal or ureteral calculi identified. No pneumoperitoneum or pneumato sis. No fracture. IMPRESSION: No renal or ureteral calculi identified. ACT 112: Negative or not required by law. The above report was generated using voice recognition software. It may contain grammatical, syntax o r spelling errors. Electronically signed by: Dallas Mcdonald M.D. 05/27/2021 8:05 AM
[2021-05-27 08:09] LABS: Albumin Level 3.6 gm/dl (3.4-5.0); BUN Creatinine Ratio 11.2 (10-20); Calcium 8.9 mg/dl (8.5-10.1); Creatinine Clr Calc Pharmacy 127.4 ml/min; Est GFR (African American) 140.3 ml/min; Est GFR (Non-African American) 121.1 ml/min; Potassium 3.9 mmol/L (3.5-5.1)
[2021-05-27 08:12] LABS: Albumin Globulin Ratio 0.9 (0.9-2); Bilirubin,Total 0.4 mg/dl (0.2-1); Globulin 4.2 gm/dl (2.5-4.0); Total Protein 7.8 gm/dl (6.4-8.2)
[2021-05-27] MEDS: HYDROmorphone INJ 0.5 MG/0.5 ML SYR IV PRN ×11 (08:22→23:08)
--- NOTE | 2021-05-27 08:28 | Ultrasound Report ---
US renal/blad retro comp HISTORY: 26 years-old Female L flank pain acute left-sided flank pain COMPARISON: KUB of same day, CT abdomen pelvis and renal ultrasound 03/08/2021 TECHNIQUE: Multiple real-time sonographic images of the kidneys and urinary bladder were obtained ass essing grayscale appearance and color flow FINDINGS: The right kidney measures 11.6 cm in length. The previously noted 3 mm calculus of the inferior pole right kidney is not definitively seen. No right-sided hydronephrosis or suspicious mass lesion. Corti josiah medullary differentiation is preserved. The left kidney measures 11.97 m in length. 3 mm nonobstructing calculus of the inferior pole left ki dney redemonstrated. No left-sided hydronephrosis or suspicious mass lesion. Cortical medullary diffe rentiation is preserved. Decompressed urinary bladder with bilateral ureteral jets noted. IMPRESSION: 1. Left nephrolithiasis without hydronephrosis. 2. The previously noted right renal calculi are not identified by ultrasound. 3. Decompressed urinary bladder. ACT 112: Negative or not required by law. The above report was generated using voice recognition software. It may contain grammatical, syntax o r spelling errors. Electronically signed by: Dallas Mcdonald M.D. 05/27/2021 8:27 AM
[2021-05-27] MEDS ORDERED: PROMETHAZINE 12.5 MG/50.5 ML BAG IV STA (08:54)
--- NOTE | 2021-05-27 11:10 | CT Scan Report ---
CT SCAN OF THE ABDOMEN AND PELVIS WITHOUT CONTRAST CLINICAL HISTORY: Left low back/flank pain. Hx of kidney stones COMPARISON STUDY: March 08, 2021 TECHNIQUE: CT scan of the abdomen and pelvis was performed from the lung bases to the proximal femurs . Images are reviewed in the axial, sagittal, and coronal planes. IV contrast was not administered fo r this examination. A dose lowering technique was utilized adhering to the principles of ALARA. CT DOSE: 416.20 mGy.cm FINDINGS: Lower chest: The heart is normal in size and configuration, without pericardial effusion. The lung ba ses and pleural spaces are clear. Liver: The unenhanced liver is normal in size, contour, and attenuation. There is no intrahepatic lefty iary ductal dilatation. Gallbladder: Unremarkable. Spleen: Normal in size and attenuation. Pancreas: Unremarkable. Adrenal glands: Unremarkable. Kidneys: The unenhanced kidneys are normal in size without hydronephrosis. There is no contour deform ing renal mass lesion. Punctate calculi are seen within left renal pelvis. Left ureter is nondilated. Punctate calculus is seen within left lower pelvis, in close proximity of anatomical region of the l eft distal ureter (3/370) Bowel: The small bowel and colon are normal in course and caliber. Appendix is not well seen. Evaluat ion of the bowel is limited due to lack of contrast. Peritoneum: There is no intraperitoneal free air or abdominal ascites. Vasculature: The abdominal aorta is normal in course and caliber. Adenopathy: Few retroperitoneal lymph nodes are seen, measuring less than 1 cm in short axis, nonpath ological by CT size criteria. Pelvic viscera: Urinary bladder is decompressed which limits evaluation. Uterus and adnexa shows norm al appearance. No evidence of free fluid within cul-de-sac. Skeletal structures: Multiple Schmorl nodes are seen within thoracolumbar spine. IMPRESSION: 1. Questionable calculus in the close proximity of the nondilated left ureter within pelvic region w hich may or may not represent ureterolithiasis. 2. Multiple punctate calculi within nondilated left renal pelvis. 3. Nondilated loops of bowel. Appendix is not well seen. ACT 112: Negative or not required by law. The above report was generated using voice recognition software. It may contain grammatical, syntax o r spelling errors. Electronically signed by: Fior Perez DO 05/27/2021 11:09 AM
[2021-05-27] MEDS ORDERED: ACETAMINOPHEN 325 MG TAB PO PRN (13:12)
--- NOTE | 2021-05-27 13:35 | History & Physical Report ---
Date of Service May 27, 2021 Assessment & Plan (1) Acute left flank pain: Plan: Left renal calculus as above - TVUS - pending rule out other pathological cause and rule out torsion since this is left sided suprapubic pain as well. - (2) Nephrolithiasis: Plan: - Tiered pain control - IVF, Flomax, strain urine - Does not appear septic at this time - Urine NIT negative, trace LE, 1+ bacteria with normal WBC- no ABX at this time, follow clinically. (3) Nausea: Plan: Continue with Phenergan and Zofran (4) History of renal calculi: Plan: Multiple previous admissions and interventions for such - Urology evaluated patient in EMD - Continue to follow clinical course (5) MARCOS (generalized anxiety disorder): Plan: Continue Vistiril PRN History of Present Illness Primary Care Provider: Luisa Roldan MD 26 YOF with past medical history of: Nephrolithiasis, rcent cysto/ureterooscopy and stent to the right side, anxiety, migraines. Patient comes to the emergency room today for acute onset of left sided flank and abdominal pain. The pain started around 20:00 last night and was sharp and stabbing in nature. The pain is in her left flank and side to front of abdomen. This is associated with nausea without vomiting and waves of feeling flush. The pain is not constant and waxes and wanes. The pain at its worst is 8-10 and at its best 5-6/10 In the EMD the patient was given multi-modal pain strategy, as well as antiemetics. The pain would be relieved and returns as well as her nausea. She had an ultrasound of her kidneys followed by a CT scan of her abdomen and pelvis performed. The CT scan of her abdomen and pelvis, revealed multiple punctate calculi in the renal pelvis and possible calculus in the left ureter within the pelvis. Patient feels that her pain and nausea will prevent her from going home and the hospitalist service was consulted for admission. Patient will be observed overnight for continued pain control, nausea and vomiting control measures, hydrated with IVF and start on Flomax. Patient will also be further evaluated for other pathology with a TVUS secondary to lymph node, menorrhagia (which she recently started on oral contraceptives for) and rule out ovarian torsion. Her test is also Negative at this time. Did discuss with the patient the renal colic pain as well as expectations for symptom control. Patient is not Vaccinated for COVID 19 and her COVID test is pending. Allergies Allergy/AdvReac Type Severity Reaction Status Date / Time No Known Allergies Allergy Verified 05/27/21 07:42 Home Medications Medication Instructions Recorded Confirmed Type hydroxyzine pamoate 25 mg capsule 25 mg PO DAILY PRN 03/08/21 05/27/21 History (Vistaril) desogestrel 0.15 mg-ethinyl 1 tab PO .COMPLEX #84 tab 04/15/21 05/27/21 Rx estradiol 0.03 mg tablet (Apri) methocarbamol 500 mg tablet 500 mg PO TID #90 tab 05/05/21 05/27/21 Rx bupropion HCl 150 mg 24 hr tablet, 150 mg PO QAM 05/27/21 05/27/21 History extended release (Wellbutrin XL) meloxicam 15 mg tablet (Mobic) 15 mg PO DAILY 05/27/21 05/27/21 History Past Med/Surg History Medical History Anxiety Depression GERD (gastroesophageal reflux disease) On occasions Hyperthyroidism Not on any medication Low TSH level Migraine Ovarian cyst Pyelonephritis Ureteral calculus, left Vitamin D deficiency Surgical History Nasal fracture Repair of nasal fracture S/P cystoscopy with ureteral stent placement 12/05/20 Dr. Lamont Ambrose- Cystoscopy, Left ureteroscopy, Laser lithotripsy, Stone basket extraction of stone, Left retrograde pyelogram, Left ureteral stent placement Family History Mother Breast cancer Other Cancer Hypertension Kidney stones Denies family history of Ovarian cancer Prostate cancer Heart disease Myocardial infarction Colorectal cancer Social History Smoking Status: Never smoker Second Hand Exposure: No; Hx Alcohol Use: Yes Alcohol type: wine and hard liquor Hx Substance Use: No Preferred Language: Maltese Communication Ability: Effective Visual Impairment: No Limitations Hearing Ability: Normal Pvc Monitor Required: No Beliefs That Will Affect Care: None marital status: Single Current Living Situation: Parent Current Living Situation Comment: lives with parents and child current occupational status: employed Feels Safe at Home: Yes Childhood Exposure to Second-Hand Smoke: No Physical Activity Frequency: Daily Seatbelt Use: always Sunscreen Use: Yes Assistive Devices: None Review of Systems Review of Systems: REVIEW OF SYSTEMS: Constitutional: (+) flushing with pain and chills, No fever, sweats Eyes: No diplopia, no worsening or blurred vision ENT: normal hearing, no trouble swallowing Respiratory: No cough, sputum, dyspnea at rest or on exertion Cardiovascular: No chest pain, tightness or palpitations Abdomen: (+) flank pain, nausea, NO vomiting, diarrhea or constipation Musculoskeletal: No joint pain, calf pain, swelling Neurologic: No weakness, numbness/tingling, or balance problems Psychiatric: (+) anxiety No depression Skin: No rash or itch Physical Exam Physical Exam: PHYSICAL EXAM: General: awake, alert, no apparent distress Head: Normocephalic, atraumatic ENT: PERRL, EOMI, no pharyngeal exudate, mucous membranes moist Neuro: AAO x 3, speech clear and appropriate, strength intact bilaterally 5/5, sensation intact and equal all extremities and dermatomes, no pronator drift Chest: equal rise and fall of the chest, no accessory muscle use, no heaves or thrills, Clear to auscultation, on room air, Cardiac: Regular rate and rhythm, telemetry reviewed- NSR, skin warm dry, cap refill <3 seconds, peripheral pulses +2 no JVD, no murmur, no JVD, no edema GI: NABS x 4 quadrants, soft, tender to deep palpation left side, positive CVA tenderness left posterior flank, suprapubic tenderness left side, no rebound, guarding. : Spontaneously voiding, no pain with voiding but did not small amount of hematuria this morning Extremities: Normal inspection, no peripheral edema or erythema, calfs nontender to palpation Psych: Normal mood and affect Skin: no rash or erythema Results & Data Results & Data ([facility]) Vital Signs (Past 12 Hours) Vital Signs Temp Pulse Pulse Resp BP BP Pulse Ox 05/27/21 12:30 73 17 102/68 98 05/27/21 12:01 77 19 115/76 100 05/27/21 11:30 72 18 105/68 98 05/27/21 11:00 78 19 114/63 97 05/27/21 10:44 84 22 106/61 98 05/27/21 10:30 13 106/61 98 05/27/21 10:00 105/69 05/27/21 09:30 81 18 123/70 100 05/27/21 09:01 81 23 102/68 99 05/27/21 08:51 88 15 120/73 97 05/27/21 08:50 86 20 120/73 100 05/27/21 07:45 85 21 112/80 112/80 98 05/27/21 07:15 36.8 C 102 H 20 128/79 98 Laboratory Results Abnormal Labs 05/27/21 05/27/21 05/27/21 07:35 07:35 07:41 [place] # (Auto) 0.72 H Chloride 109 H Glucose 139 H AST 13 L Globulin 4.2 H Ur Leukocyte Esterase Trace H U Epithel Cells (Auto) >30 H Urine Bacteria (Auto) 1+ H Diagnostic Findings KUB X-Ray 05/27/21 07:23 KUB HISTORY: Acute left-sided flank pain L flank pain COMPARISON: KUB 03/14/2021 FINDINGS: Nonobstructive bowel gas pattern. Mild to moderate fecal retention. Renal shadows are partially obscured by bowel gas. No renal or ureteral calculi identified. No pneumoperitoneum or pneumatosis. No fracture. IMPRESSION: No renal or ureteral calculi identified. The above report was generated using voice recognition software. It may contain grammatical, syntax or spelling errors. Electronically signed by: Dallas Mcdonald M.D. 05/27/2021 8:05 AM Renal Ultrasound 05/27/21 07:23 US renal/blad retro comp HISTORY: 26 years-old Female L flank pain acute left-sided flank pain COMPARISON: KUB of same day, CT abdomen pelvis and renal ultrasound 03/08/2021 TECHNIQUE: Multiple real-time sonographic images of the kidneys and urinary bladder were obtained assessing grayscale appearance and color flow FINDINGS: The right kidney measures 11.6 cm in length. The previously noted 3 mm calculus of the inferior pole right kidney is not definitively seen. No right-sided hydronephrosis or suspicious mass lesion. Cortical medullary differentiation is preserved. The left kidney measures 11.97 m in length. 3 mm nonobstructing calculus of the inferior pole left kidney redemonstrated. No left-sided hydronephrosis or suspicious mass lesion. Cortical medullary differentiation is preserved. Decompressed urinary bladder with bilateral ureteral jets noted. IMPRESSION: 1. Left nephrolithiasis without hydronephrosis. 2. The previously noted right renal calculi are not identified by ultrasound. 3. Decompressed urinary bladder. ACT 112: Negative or not required by law. The above report was generated using voice recognition software. It may contain grammatical, syntax or spelling errors. Electronically signed by: Dallas Mcdonald M.D. 05/27/2021 8:27 AM Abdomen/Pelvis CT 05/27/21 09:53 CT SCAN OF THE ABDOMEN AND PELVIS WITHOUT CONTRAST CLINICAL HISTORY: Left low back/flank pain. Hx of kidney stones COMPARISON STUDY: March 08, 2021 TECHNIQUE: CT scan of the abdomen and pelvis was performed from the lung bases to the proximal femurs. Images are reviewed in the axial, sagittal, and coronal planes. IV contrast was not administered for this examination. A dose lowering technique was utilized adhering to the principles of ALARA. CT DOSE: 416.20 mGy.cm FINDINGS: Lower chest: The heart is normal in size and configuration, without pericardial effusion. The lung bases and pleural spaces are clear. Liver: The unenhanced liver is normal in size, contour, and attenuation. There is no intrahepatic biliary ductal dilatation. Gallbladder: Unremarkable. Spleen: Normal in size and attenuation. Pancreas: Unremarkable. Adrenal glands: Unremarkable. Kidneys: The unenhanced kidneys are normal in size without hydronephrosis. There is no contour deforming renal mass lesion. Punctate calculi are seen within left renal pelvis. Left ureter is nondilated. Punctate calculus is seen within left lower pelvis, in close proximity of anatomical region of the left distal ureter (3/370) Bowel: The small bowel and colon are normal in course and caliber. Appendix is not well seen. Evaluation of the bowel is limited due to lack of contrast. Peritoneum: There is no intraperitoneal free air or abdominal ascites. Vasculature: The abdominal aorta is normal in course and caliber. Adenopathy: Few retroperitoneal lymph nodes are seen, measuring less than 1 cm in short axis, nonpathological by CT size criteria. Pelvic viscera: Urinary bladder is decompressed which limits evaluation. Uterus and adnexa shows normal appearance. No evidence of free fluid within cul-de-sac. Skeletal structures: Multiple Schmorl nodes are seen within thoracolumbar spine. IMPRESSION: 1. Questionable calculus in the close proximity of the nondilated left ureter within pelvic region which may or may not represent ureterolithiasis. 2. Multiple punctate calculi within nondilated left renal pelvis. 3. Nondilated loops of bowel. Appendix is not well seen. ACT 112: Negative or not required by law. The above report was generated using voice recognition software. It may contain grammatical, syntax or spelling errors. Electronically signed by: Fior Perez DO 05/27/2021 11:09 AM Medications Administered Home Medications hydroxyzine pamoate 25 mg capsule (Vistaril) 25 mg PO DAILY PRN 03/08/21 [History Confirmed 05/27/21] desogestrel 0.15 mg-ethinyl estradiol 0.03 mg tablet (Apri) 1 tab PO .COMPLEX #84 tab 04/15/21 [Rx Confirmed 05/27/21] methocarbamol 500 mg tablet 500 mg PO TID #90 tab 05/05/21 [Rx Confirmed 05/27/21] bupropion HCl 150 mg 24 hr tablet, extended release (Wellbutrin XL) 150 mg PO QAM 05/27/21 [History Confirmed 05/27/21] meloxicam 15 mg tablet (Mobic) 15 mg PO DAILY 05/27/21 [History Confirmed 05/27/21] Active Medications Acetaminophen (Acetaminophen 325 Mg Tab) 650 mg PO Q6 PRN PRN Reason: pain mild to moderate Stop: 06/26/21 13:11 Hydromorphone HCl (Hydromorphone Inj 0.5 Mg/0.5 Ml Syr) 0.5 mg IV Q30M PRN PRN Reason: Pain Stop: 06/10/21 07:34 Last Admin: 05/27/21 12:01 Dose: 0.5 mg Documented by: Hydromorphone HCl (Hydromorphone Inj 0.5 Mg/0.5 Ml Syr) 0.5 mg IV Q30M PRN PRN Reason: Pain Stop: 06/10/21 07:34 Last Admin: 05/27/21 12:01 Dose: 0.5 mg Documented by: [id number] Admin: 05/27/21 10:43 Dose: 0.5 mg Documented by: [id number] Admin: 05/27/21 09:41 Dose: 0.5 mg Documented by: [id number] Admin: 05/27/21 08:22 Dose: 0.5 mg Documented by: [id number] Discontinued Medications Hydromorphone HCl (Hydromorphone Inj 0.5 Mg/0.5 Ml Syr) 0.5 mg IV NOW STA Stop: 05/27/21 07:24 Last Admin: 05/27/21 07:37 Dose: 0.5 mg Documented by: [id number] Sodium Chloride (Nss 1000ml) 1,000 mls @ 999 mls/hr IV .Q1H1M HAM Stop: 05/27/21 08:30 Last Infusion: 05/27/21 08:39 Dose: 0 mls/hr Documented by: [id number] Admin: 05/27/21 07:37 Dose: 999 mls/hr Documented by: [id number] Promethazine HCl (Phenergan) 12.5 mg in 50.5 mls @ 202 mls/hr IV NOW STA Stop: 05/27/21 09:08 Last Infusion: 05/27/21 09:21 Dose: 0 mls/hr Documented by: [id number] Admin: 05/27/21 09:02 Dose: 202 mls/hr Documented by: [id number] Ketorolac Tromethamine (Ketorolac Tromethamine 15 Mg/Ml Vial) 15 mg IV NOW STA Stop: 05/27/21 07:24 Last Admin: 05/27/21 07:37 Dose: 15 mg Documented by: [id number] Ondansetron HCl (Ondansetron Inj 2 Mg/Ml 2 Ml Vial) 4 mg IV NOW STA Stop: 05/27/21 07:24 Last Admin: 05/27/21 07:37 Dose: 4 mg Documented by: [id number] Ondansetron HCl (Ondansetron Inj 2 Mg/Ml 2 Ml Vial) 4 mg IV NOW STA Stop: 05/27/21 08:26 Last Admin: 05/27/21 08:29 Dose: 4 mg Documented by: [id number] Additional Comments: None Code Status & VTE Plan Code Status CODE: FULL VTE: SCDs, ambulation VTE Prophylaxis Plan VTE Prophylaxis will be ordered: Yes PG Care Time/CCT Total # of Minutes Spent Total Time Spent with Patient: Total time spent is greater than 50% in coordination of care (as documented) at patient's floor/unit and/or counseling patient: Coding Level of Care Code INT OBSERVATION CARE 70M LVL 3 Diagnoses Acute left flank pain R10.9 Nausea R11.0 History of renal calculi Z87.442 MARCOS (generalized anxiety disorder) F41.1 Nephrolithiasis N20.0
[2021-05-27] MEDS: PROMETHAZINE HCL 25 MG in SODIUM CHLORIDE 0.9% 50 ML IV PRN (20:41)
[2021-05-27] MEDS ORDERED: PROMETHAZINE HCL 12.5 MG in SODIUM CHLORIDE 0.9% 50 ML IV PRN (23:16)
[2021-05-27] MEDS ORDERED: LIDOCAINE 5% 1 PATCH TD SCH (23:45)
[2021-05-27] MEDS: LACTATED RINGER'S 1,000 ML IV SCH (23:51)
[2021-05-27] MEDS: ACETAMINOPHEN 500 MG TAB PO SCH (23:56)
[2021-05-27] MEDS: oxyCODONE HCL IR 5 MG TAB (IMMEDIATE RELEASE) PO PRN (23:57)
[2021-05-28] MEDS ORDERED: KETOROLAC TROMETHAMINE 15 MG/ML VIAL IV ONE (00:30)
[2021-05-28] MEDS: METHOCARBAMOL 500 MG TABLET PO SCH ×3 (00:30→14:25)
[2021-05-28] MEDS: TAMSULOSIN HCL 0.4 MG CAP PO SCH ×2 (00:31→09:07)
[2021-05-28] MEDS: ONDANSETRON 4 MG OD TAB PO PRN (01:35)
[2021-05-28] MEDS: HYDROmorphone INJ 0.5 MG/0.5 ML SYR IV PRN ×6 (01:35→22:55)
[2021-05-28] MEDS: PROMETHAZINE HCL 25 MG in SODIUM CHLORIDE 0.9% 50 ML IV PRN ×2 (02:50→09:53)
[2021-05-28] MEDS: KETOROLAC TROMETHAMINE 15 MG/ML VIAL IV PRN ×2 (05:12→12:49)
[2021-05-28] MEDS: ACETAMINOPHEN 500 MG TAB PO SCH ×2 (07:47→14:25)
[2021-05-28] MEDS: oxyCODONE HCL IR 5 MG TAB (IMMEDIATE RELEASE) PO PRN ×2 (07:57→21:52)
[2021-05-28 08:02] LABS: Basophils # (auto) 0.01 K/uL (0-0.2); Basophils % (auto) 0.2 %; Eosinophils # (auto) 0.03 K/uL (0-0.5); Eosinophils % (auto) 0.7 %; Hematocrit (blood only) 35.9 % (37-47); Hemoglobin 11.8 g/dL (12.0-16.0); Immature Granulocytes # (auto) 0.01 K/uL (0.00-0.02); Immature Granulocytes % (auto) 0.2 %; Lymphocytes # (auto) 1.85 K/uL (1.2-3.4); Lymphocytes % (auto) 40.7 %; Mean Corpuscular Hgb Conc 32.9 g/dL (32-36); Mean Corpuscular Volume 88.2 fL (80-100); Mean Platelet Volume 10.1 fL (7.4-10.4); Monocytes # (auto) 0.49 K/uL (0.11-0.59); Monocytes % (auto) 10.8 %; Neutrophils # (auto) 2.15 K/uL (1.4-6.5); Neutrophils % (auto) 47.4 %; Platelet Count 225 K/uL (130-400); RDW Coefficient of Variation 12.5 % (11.5-14.5); RDW Standard Deviation 40.3 fL (36.4-46.3); Red Blood Count 4.07 M/uL (4.2-5.4); White Blood Count 4.54 K/uL (4.8-10.8)
--- NOTE | 2021-05-28 08:02 | Hospitalist Progress Note ---
Date of Service May 28, 2021 Assessment & Plan (1) Acute left flank pain: Plan: Left renal calculus seems to be in the in renal pelvis - pain is reproducible and point tender, sharp not colicky, most likely musculoskeletal, however maybe also influenced by moderate fecal load will try a miralax clean out to try to help with bowel function CT abdomen and pelvis 05/27/21 IMPRESSION: 1. Questionable calculus in the close proximity of the nondilated left ur eter within pelvic region which may or may not represent ureterolithiasis. 2. Multiple punctate calculi within nondilated left renal pelvis. 3. Nondilated loops of bowel. Appendix is not well seen. Renal U/S 05/27/21 IMPRESSION: 1. Left nephrolithiasis without hydronephrosis. 2. The previously noted right renal calculi are not identified by ultrasound. 3. Decompressed urinary bladder. - (2) Nephrolithiasis: Plan: - Tiered pain control, cliniclly does not seem to be the culprit issue - IVF, Flomax, strain urine - Does not appear septic at this time - Urine NIT negative, trace LE, 1+ bacteria with normal WBC- no ABX at this time, follow clinically pinpoint growth re incubating (3) Nausea: Plan: Continue with Phenergan and Zofran (4) History of renal calculi: Plan: Multiple previous admissions and interventions for such - Urology evaluated patient in [facility] - (5) MARCOS (generalized anxiety disorder): Plan: Continue Vistiril PRN Admission and Anticipated Discharge Date Admission Date: May 27, 2021 Subjective pt has had persistent back pain, she does not have any intra abdomnal pathology that correlates to pain site, she however has reproducible point tenderness, in left CVA area, this lends to more musculoskeletal issue, is on multimodal pain regimen, reportedly has some urinary sediment but did have ureteral stent february and march Review of Systems Review of Systems: Mild distress and fatigue no headache, no visual changes no speech or swallowing issues no chest pain, pressure or palpitations no shortness of breath, cough or wheezes Left posterior CVA angle tenderness abdominal pain. This is point tender and also worse with movement. She has no nausea or vomiting. She has had no diarrhea constipation no dysuria, hematuria or frequency no focal joint pain or swelling Left sided back pain without radicular component no bruising, bleeding or rashes no focal signs of weakness or numbness or altered sensation no complaints of anxiety or depression.. Physical Exam Physical Exam: The patient appeared well nourished and normally developed. He is recently medicated and appears in no distress Vital signs as documented. Head exam is normocephalic atraumatic Neck is without JVD, thyromegaly, or carotid bruits. Lungs are clear to auscultation, no focal loss of breath sounds Cardiac exam, Rhythm is regular.. No murmurs, rubs or gallops. Abdominal exam reveals normal bowel sounds, soft non tender, no masses Left CVA angle tenderness is present reproducible point tender near the center of her body feels to be more of a muscular band or paraspinous area Extremities are nonedematous and both pedal pulses are present Neurologic exam is alert and oriented, no focal loss of strength or sensation Skin is without bruises or rashes Psychologically is without concerns for anxiety or depression Results & Data Results & Data ([facility]) Vital Signs (Past 12 Hours) Vital Signs Temp Pulse Resp BP Pulse Ox 05/28/21 06:11 97.5 F L 71 16 101/64 100 05/27/21 21:53 98.1 F 75 14 104/70 98 PG Care Time/CCT Total # of Minutes Spent Total Time Spent with Patient: Total time spent is greater than 50% in coordination of care (as documented) at patient's floor/unit and/or counseling patient: Coding Level of Care Code 10729 Subseq Obs Care Lvl 2 Diagnoses Acute left flank pain R10.9 Nephrolithiasis N20.0 Nausea R11.0 History of renal calculi Z87.442 MARCOS (generalized anxiety disorder) F41.1
[2021-05-28 08:34] LABS: BUN Creatinine Ratio 14.8 (10-20); Calcium 8.2 mg/dl (8.5-10.1); Creatinine Clr Calc Pharmacy 150.2 ml/min; Est GFR (African American) 148.1 ml/min; Est GFR (Non-African American) 127.8 ml/min; Magnesium 1.9 mg/dl (1.8-2.4); Potassium 4.1 mmol/L (3.5-5.1)
[2021-05-28] MEDS: buPROPion XL 150 MG TABCR PO SCH (09:06)
[2021-05-28] MEDS: MELOXICAM 7.5 MG TAB PO SCH (09:06)
[2021-05-28] MEDS: LACTATED RINGER'S 1,000 ML IV SCH (09:49)
[2021-05-28] MEDS: PATIENT'S OWN ORAL CONTRACEPTIVE PO SCH (10:41)
--- NOTE | 2021-05-28 11:59 | Ultrasound Report ---
US transvaginal HISTORY: 26 years-old Female left abdominal pain with vomitting acute mid pelvic pain COMPARISON: CT abdomen and pelvis 05/27/2021 TECHNIQUE: Multiple real-time sonographic images of the deep pelvic structures were obtained transvag inally assessing grayscale appearance, color and spectral flow FINDINGS: Anteflexed uterus measures 9.9 x 4.4 x 5.1 cm. No myometrial mass identified. Endometrium is normal m easuring 6 mm. The right ovary measures 2.8 x 1.0 x 2.0 cm and demonstrates arterial inflow and venous outflow. Ther e is an exophytic follicle versus paraovarian cyst on the right measuring 1.8 cm in greatest dimensio n. The left ovary measures 2.7 x 1.5 x 1.4 cm and demonstrates arterial inflow with venous outflow. No significant free pelvic fluid. IMPRESSION: 1. No ovarian torsion. 2. Exophytic right ovarian follicle versus paraovarian cyst measures 1.8 cm. 3. Normal sonographic appearance of the uterus and endometrium. ACT 112: Negative or not required by law. The above report was generated using voice recognition software. It may contain grammatical, syntax o r spelling errors. Electronically signed by: Dallas Mcdonald M.D. 05/28/2021 11:58 AM
[2021-05-28] MEDS ORDERED: tiZANidine HCL 4 MG TABLET PO ONE (15:42)
[2021-05-28] MEDS: KETOROLAC 30 MG/ML VIAL IV PRN (16:47)
[2021-05-28] MEDS ORDERED: POLYETHYLENE (MIRALAX) 17 GM PACK PO ONE ×2 (17:46→21:00)
[2021-05-28] MEDS: LIDOCAINE 5% 1 PATCH TD SCH (18:14)
[2021-05-29] MEDS: ACETAMINOPHEN 500 MG TAB PO SCH ×3 (00:15→15:21)
[2021-05-29] MEDS: KETOROLAC 30 MG/ML VIAL IV PRN ×3 (00:56→19:46)
[2021-05-29] MEDS: hydrOXYzine HCl 25 MG TAB PO PRN ×2 (00:56→20:10)
[2021-05-29] MEDS: HYDROmorphone INJ 0.5 MG/0.5 ML SYR IV PRN ×5 (04:16→22:12)
[2021-05-29 06:41] LABS: Basophils # (auto) 0.01 K/uL (0-0.2); Basophils % (auto) 0.2 %; Eosinophils # (auto) 0.06 K/uL (0-0.5); Eosinophils % (auto) 1.2 %; Hematocrit (blood only) 37.2 % (37-47); Hemoglobin 12.3 g/dL (12.0-16.0); Immature Granulocytes # (auto) 0.01 K/uL (0.00-0.02); Immature Granulocytes % (auto) 0.2 %; Lymphocytes # (auto) 1.91 K/uL (1.2-3.4); Lymphocytes % (auto) 38.1 %; Mean Corpuscular Hemoglobin 28.9 pg (25-34); Mean Corpuscular Hgb Conc 33.1 g/dL (32-36); Mean Corpuscular Volume 87.5 fL (80-100); Mean Platelet Volume 10.1 fL (7.4-10.4); Neutrophils # (auto) 2.42 K/uL (1.4-6.5); Neutrophils % (auto) 48.3 %; Platelet Count 239 K/uL (130-400); RDW Coefficient of Variation 12.6 % (11.5-14.5); RDW Standard Deviation 40.3 fL (36.4-46.3); Red Blood Count 4.25 M/uL (4.2-5.4); White Blood Count 5.01 K/uL (4.8-10.8)
[2021-05-29 07:11] LABS: BUN Creatinine Ratio 15.7 (10-20); Calcium 8.2 mg/dl (8.5-10.1); Est GFR (African American) 146.4 ml/min; Est GFR (Non-African American) 126.3 ml/min; Magnesium 2.1 mg/dl (1.8-2.4); Potassium 4.1 mmol/L (3.5-5.1)
[2021-05-29] MEDS: buPROPion XL 150 MG TABCR PO SCH (08:54)
[2021-05-29] MEDS: LIDOCAINE 5% 1 PATCH TD SCH (08:55)
[2021-05-29] MEDS: PATIENT'S OWN ORAL CONTRACEPTIVE PO SCH (08:55)
[2021-05-29] MEDS: MELOXICAM 7.5 MG TAB PO SCH (08:55)
--- NOTE | 2021-05-29 10:33 | Urology Consultation ---
Date of Consultation May 29, 2021 Assessment & Plan (1) History of renal calculi: (2) UTI (urinary tract infection) due to Enterococcus: Consult placed for left flank pain Unfortunately does not seem that there is an easy solution to this She is not actively passing a stone and has no evidence of obstruction nor perinephric inflammation She does have some sediment in her urine which I was able to evaluatethis could represent infection despite the fact that she does not show systemic infectious symptoms and her culture on arrival shows only lactobacillus There may be benefit to treating her empirically with antibiotics given the lack of other identifiable pathology No plan for intervention during this hospitalization, please call us if there are further issues History of Present Illness Attending Physician: Lamont Pickering MD History of Present Illness 26-year-old female with a long history of kidney stones who presented to the emergency room 48 hours ago with severe left flank pain This was focal and reproducible with deep palpation No hematuria, no stone passage, no dysuria She does report that she is been collecting some sediment in her urine She had a CT (also an ultrasound) upon arrival which failed to show any hydronephrosis, no perinephric stranding, no stone passage Allergies Allergy/AdvReac Type Severity Reaction Status Date / Time No Known Allergies Allergy Verified 05/27/21 07:42 Home Medications Medication Instructions Recorded Confirmed Type hydroxyzine pamoate 25 mg capsule 25 mg PO DAILY PRN 03/08/21 05/27/21 History (Vistaril) desogestrel 0.15 mg-ethinyl 1 tab PO .COMPLEX #84 tab 04/15/21 05/27/21 Rx estradiol 0.03 mg tablet (Apri) methocarbamol 500 mg tablet 500 mg PO TID #90 tab 05/05/21 05/27/21 Rx bupropion HCl 150 mg 24 hr tablet, 150 mg PO QAM 05/27/21 05/27/21 History extended release (Wellbutrin XL) meloxicam 15 mg tablet (Mobic) 15 mg PO DAILY 05/27/21 05/27/21 History Patient History Medical History Anxiety Depression GERD (gastroesophageal reflux disease) On occasions Hyperthyroidism Not on any medication Low TSH level Migraine Ovarian cyst Pyelonephritis Ureteral calculus, left Vitamin D deficiency Surgical History Nasal fracture Repair of nasal fracture S/P cystoscopy with ureteral stent placement 12/05/20 Dr. Lamont Ambrose- Cystoscopy, Left ureteroscopy, Laser lithotripsy, Stone basket extraction of stone, Left retrograde pyelogram, Left ureteral stent placement Family History Mother Breast cancer Other Cancer Hypertension Kidney stones Denies family history of Ovarian cancer Prostate cancer Heart disease Myocardial infarction Colorectal cancer Social History Smoking Status: Never smoker Second Hand Exposure: No; Hx Alcohol Use: Yes Alcohol type: wine and hard liquor Hx Substance Use: No Preferred Language: Bhutanese Communication Ability: Effective Visual Impairment: No Limitations Hearing Ability: Normal Prototyper Required: No Beliefs That Will Affect Care: None marital status: Single Current Living Situation: Parent Current Living Situation Comment: Live with parents and child. current occupational status: employed Other Information That Helps Us Care for You: No Feels Safe at Home: Yes Safety Concerns: Feels Safe At This Time Childhood Exposure to Second-Hand Smoke: No Physical Activity Frequency: Daily Seatbelt Use: always Sunscreen Use: Yes Assistive Devices: None Physical Exam Constitutional: well developed and well nourished Neck: neck nontender Respiratory: normal respiratory effort; no respiratory distress and does not use accessory muscles Cardiovascular: Rate/Rhythm: regular rate Vessels: radial pulses present Extremities: no edema Gastrointestinal (Abdomen): Inspection/Auscultation: abdomen normal to inspection Percussion/Palpation: abdomen soft; abdomen nontender and no guarding Musculoskeletal: Head/Neck/Chest: normocephalic and head atraumatic Extremities: extremities normal to inspection Skin: no rashes and no lesions Trauma: no evidence of skin trauma Neurologic: awake; not obtunded Speech / Cognition: normal speech Motor/Sensory: no tremor Psychiatric: Orientation: alert and oriented x 3 Lymphatic: no lymphadenopathy Results & Data ([facility]) Vital Signs (Past 12 Hours) Vital Signs Temp Pulse Resp BP Pulse Ox 05/29/21 08:05 37.0 C 85 20 105/67 98 05/28/21 22:54 112/76 05/28/21 22:39 36.5 C 76 16 95/63 L 98 PG Care Time/CCT Total # of Minutes Spent Total Time Spent with Patient: Total time spent is greater than 50% in coordination of care (as documented) at patient's floor/unit and/or counseling patient: Coding Level of Care Code 28426 Inpt Consult Level 3 Diagnoses History of renal calculi Z87.442 UTI (urinary tract infection) due to Enterococcus N39.0; B95.2
[2021-05-29] MEDS ORDERED: PIPERACILL/TAZOBAC CONSULT ACTIVE PRN (11:01)
[2021-05-29] MEDS: ONDANSETRON 4 MG OD TAB PO PRN (11:14)
[2021-05-29] MEDS ORDERED: PIPERACILLIN/TAZOBACTAM 3.375 GM in DEXTROSE 5% 100 ML IV ONE (11:30)
[2021-05-29] MEDS ORDERED: POLYETHYLENE (MIRALAX) 17 GM PACK PO ONE ×3 (11:39→18:00)
--- NOTE | 2021-05-29 12:17 | XRay Report ---
LUMBAR SPINE 5 VIEWS HISTORY: Reproducible pain left side lumbar spine COMPARISON: Lumbar spine 08/10/2015. FINDINGS: There is no fracture. No subluxation. Disc spaces are preserved. Mild facet degenerative c hanges at L5-S1. The sacrum appears intact. IMPRESSION: No fracture or subluxation within the lumbar spine. ACT 112: Negative or not required by law. Electronically signed by: Triston Castillo M.D. 05/29/2021 12:16 PM
[2021-05-29] MEDS: oxyCODONE HCL IR 5 MG TAB (IMMEDIATE RELEASE) PO PRN ×2 (12:42→20:45)
--- NOTE | 2021-05-29 13:02 | Hospitalist Progress Note ---
Date of Service May 29, 2021 Assessment & Plan (1) Acute left flank pain: Plan: Left renal calculus seems to be in the in renal pelvis. Urology did see and does not feel the pain is from renal colic but does recommend treating lactobacillus uti - pain is reproducible and point tender, sharp not colicky, most likely musculoskeletal, however maybe also influenced by moderate fecal load will try a miralax clean out to try to help with bowel function CT abdomen and pelvis 05/27/21 IMPRESSION: 1. Questionable calculus in the close proximity of the nondilated left ureter within pelvic region which may or may not represent ureterolithiasis. 2. Multiple punctate calculi within nondilated left renal pelvis. 3. Nondilated loops of bowel. Appendix is not well seen. Renal U/S 05/27/21 IMPRESSION: 1. Left nephrolithiasis without hydronephrosis. 2. The previously noted right renal calculi are not identified by ultrasound. 3. Decompressed urinary bladder. Trans Vaginal U/S 05/28/21 IMPRESSION: 1. No ovarian torsion. 2. Exophytic right ovarian follicle versus paraovarian cyst measures 1.8 cm. 3. Normal sonographic appearance of the uterus and endometrium. Lumbar spine film 05/29/21 negative for Fracture or subluxation - (2) Nephrolithiasis: Plan: - does not seem to be the origin of her pain, Tiered pain control, - IVF, Flomax, strain urine - Does not appear septic at this time - Urine is cloudy, culture grew lactobacillus (3) Nausea: Plan: Continue with Phenergan and Zofran (4) History of renal calculi: Plan: Multiple previous admissions and interventions for such - Urology evaluated patient in EMD and on the floor - (5) MARCOS (generalized anxiety disorder): Plan: Continue Vistiril PRN (6) UTI (urinary tract infection): Plan: Patient with lactobacillus species identified in her urine. Urology recommends treating. Extended spectrum penicillins such as Zosyn and Augmentin would be 1 choice Zosyn was initiated and transition to Augmentin to go home (7) Constipation: Plan: Moderate stool is seen on imaging of abdomen. Could be part of her pain complex. We are trying MiraLAX cleanout she received 2 doses of MiraLAX on the and received 3 doses on the with copious amounts of oral liquid intake Admission and Anticipated Discharge Date Admission Date: May 27, 2021 Subjective PT remains with persistent back pain, she does not have any intra abdominal pathology that correlates to pain site, she however has reproducible point tenderness, in left CVA area, this lends to more musculoskeletal issue, is on multimodal pain regimen, reportedly has some urinary sediment but did have ureteral stent february and march. Urology did see and does not feel the pain is from renal colic but does recommend treating lactobacillus uti Review of Systems Review of Systems: Mild distress and fatigue no headache, no visual changes no speech or swallowing issues no chest pain, pressure or palpitations no shortness of breath, cough or wheezes Left posterior CVA angle tenderness abdominal pain. This is point tender and also worse with movement. She has no nausea or vomiting. She has had no diarrhea constipation no dysuria, hematuria or frequency no focal joint pain or swelling Left sided back pain without radicular component no bruising, bleeding or rashes no focal signs of weakness or numbness or altered sensation no complaints of anxiety or depression.. Physical Exam Physical Exam: The patient appeared well nourished and normally developed. He is recently medicated and appears in no distress Vital signs as documented. Head exam is normocephalic atraumatic Neck is without JVD, thyromegaly, or carotid bruits. Lungs are clear to auscultation, no focal loss of breath sounds Cardiac exam, Rhythm is regular.. No murmurs, rubs or gallops. Abdominal exam reveals normal bowel sounds, soft non tender, no masses Left CVA angle tenderness is present reproducible point tender near the center of her body feels to be more of a muscular band or paraspinous area Extremities are nonedematous and both pedal pulses are present Neurologic exam is alert and oriented, no focal loss of strength or sensation Skin is without bruises or rashes Psychologically is without concerns for anxiety or depression Results & Data Results & Data ([facility]) Vital Signs (Past 12 Hours) Vital Signs Temp Pulse Resp BP Pulse Ox 05/29/21 08:05 98.6 F 85 20 105/67 98 PG Care Time/CCT Total # of Minutes Spent Total Time Spent with Patient: Total time spent is greater than 50% in coordi nation of care (as documented) at patient's floor/unit and/or counseling patient: Coding Level of Care Code 94147 Subseq Hosp Care Lvl 2 Diagnoses Acute left flank pain R10.9 Nephrolithiasis N20.0 Nausea R11.0 History of renal calculi Z87.442 MARCOS (generalized anxiety disorder) F41.1 UTI (urinary tract infection) N39.0 Constipation K59.00
[2021-05-29] MEDS: tiZANidine HCL 4 MG TABLET PO PRN (16:52)
[2021-05-29] MEDS: PIPERACILLIN/TAZOBACTAM 3.375 GM in DEXTROSE 5% 100 ML IV SCH (18:01)
[2021-05-29] MEDS: PROMETHAZINE HCL 25 MG in SODIUM CHLORIDE 0.9% 50 ML IV PRN (19:52)
[2021-05-29] MEDS ORDERED: hydrOXYzine HCl 25 MG TAB PO PRN (19:59)
[2021-05-29] MEDS: POLYETHYLENE (MIRALAX) 17 GM PACK PO SCH (20:27)
[2021-05-30] MEDS: ACETAMINOPHEN 500 MG TAB PO SCH ×3 (00:23→15:14)
[2021-05-30] MEDS: PIPERACILLIN/TAZOBACTAM 3.375 GM in DEXTROSE 5% 100 ML IV SCH ×3 (00:59→18:26)
[2021-05-30] MEDS: tiZANidine HCL 4 MG TABLET PO PRN ×3 (01:03→20:06)
[2021-05-30] MEDS: HYDROmorphone INJ 0.5 MG/0.5 ML SYR IV PRN ×5 (03:30→20:51)
[2021-05-30] MEDS: oxyCODONE HCL IR 5 MG TAB (IMMEDIATE RELEASE) PO PRN ×2 (04:49→15:14)
[2021-05-30] MEDS: KETOROLAC 30 MG/ML VIAL IV PRN ×2 (04:55→20:07)
[2021-05-30] MEDS: PATIENT'S OWN ORAL CONTRACEPTIVE PO SCH (08:20)
[2021-05-30] MEDS: buPROPion XL 150 MG TABCR PO SCH (08:20)
[2021-05-30] MEDS: MELOXICAM 7.5 MG TAB PO SCH (08:20)
[2021-05-30] MEDS: LIDOCAINE 5% 1 PATCH TD SCH (08:20)
[2021-05-30] MEDS: POLYETHYLENE (MIRALAX) 17 GM PACK PO SCH ×2 (08:21→20:11)
[2021-05-30 08:29] LABS: Basophils # (auto) 0.01 K/uL (0-0.2); Basophils % (auto) 0.2 %; Eosinophils # (auto) 0.07 K/uL (0-0.5); Eosinophils % (auto) 1.4 %; Hematocrit (blood only) 36.6 % (37-47); Hemoglobin 12.2 g/dL (12.0-16.0); Immature Granulocytes # (auto) 0.01 K/uL (0.00-0.02); Immature Granulocytes % (auto) 0.2 %; Lymphocytes # (auto) 2.03 K/uL (1.2-3.4); Lymphocytes % (auto) 41.6 %; Mean Corpuscular Hemoglobin 29.3 pg (25-34); Mean Corpuscular Hgb Conc 33.3 g/dL (32-36); Monocytes # (auto) 0.55 K/uL (0.11-0.59); Monocytes % (auto) 11.3 %; Neutrophils # (auto) 2.21 K/uL (1.4-6.5); Neutrophils % (auto) 45.3 %; Platelet Count 246 K/uL (130-400); RDW Coefficient of Variation 12.5 % (11.5-14.5); RDW Standard Deviation 40.2 fL (36.4-46.3); Red Blood Count 4.16 M/uL (4.2-5.4); White Blood Count 4.88 K/uL (4.8-10.8)
[2021-05-30] MEDS ORDERED: POLYETHYLENE (MIRALAX) 17 GM PACK PO SCH (09:00)
[2021-05-30 09:01] LABS: BUN Creatinine Ratio 19.5 (10-20); Calcium 8.4 mg/dl (8.5-10.1); Creatinine Clr Calc Pharmacy 147.5 ml/min; Est GFR (African American) 147.2 ml/min; Magnesium 1.7 mg/dl (1.8-2.4)
[2021-05-30] MEDS: PROMETHAZINE HCL 25 MG in SODIUM CHLORIDE 0.9% 50 ML IV PRN ×2 (11:08→22:19)
[2021-05-30] MEDS ORDERED: MAGNESIUM HYDROXIDE SUSP 30 ML UDC PO ONE (12:45)
--- NOTE | 2021-05-30 16:50 | Hospitalist Progress Note ---
Date of Service May 30, 2021 Assessment & Plan (1) Acute left flank pain: Plan: Left renal calculus seems to be in the in renal pelvis. Urology did see and does not feel the pain is from renal colic but does recommend treating lactobacillus uti ?Constipation related, will add milk of magnesia and Senna to bowel regimen as still not had BM ?pyelonephritis, will discuss with microbiology if they can run sensitivities on lactobacillus UTI On exam to me today it appears to be less MSK related but deeper than this. CT abdomen and pelvis 05/27/21 IMPRESSION: 1. Questionable calculus in the close proximity of the nondilated left ureter within pelvic region which may or may not represent ureterolithiasis. 2. Multiple punctate calculi within nondilated left renal pelvis. 3. Nondilated loops of bowel. Appendix is not well seen. Renal U/S 05/27/21 IMPRESSION: 1. Left nephrolithiasis without hydronephrosis. 2. The previously noted right renal calculi are not identified by ultrasound. 3. Decompressed urinary bladder. Trans Vaginal U/S 05/28/21 IMPRESSION: 1. No ovarian torsion. 2. Exophytic right ovarian follicle versus paraovarian cyst measures 1.8 cm. 3. Normal sonographic appearance of the uterus and endometrium. Lumbar spine film 05/29/21 negative for Fracture or subluxation (2) Nephrolithiasis: Plan: - does not seem to be the origin of her pain, Tiered pain control, - IVF, Flomax, strain urine - Does not appear septic at this time - Urine is cloudy, culture grew lactobacillus - Continue Zosyn started by prior provider pending sensitivities, will discuss with microbiology whether these can be performed. (3) Nausea: Plan: Continue with Phenergan and Zofran Resolved (4) History of renal calculi: Plan: Multiple previous admissions and interventions for such - Urology evaluated patient in EMD and on the floor (5) MARCOS (generalized anxiety disorder): Plan: Continue Vistiril PRN (6) UTI (urinary tract infection): Plan: Patient with lactobacillus species identified in her urine. Urology recommends treating. Extended spectrum penicillins such as Zosyn and Augmentin would be 1st choice Zosyn was initiated and transition to Augmentin to go home. (7) Constipation: Plan: No BM with MiraLAX as above. Milk of magnesia today with Senna tonight. Admission and Anticipated Discharge Date Admission Date: May 29, 2021 Subjective No change in her flank and LLQ abdominal pain. No real dysuria. Continues to pass sediment in her urine. No fever or chills. No WBC. Not yet had BM with MiraLAX use. No nausea or vomiting. Review of Systems Review of Systems: All systems reviewed & are unremarkable except as noted in HPI & below Physical Exam Constitutional: WD/WN, vitals as above + obese; no acute distress Eyes: + anicteric sclerae; normal pupil size ENMT: external ear and nose normal, oropharynx normal Respiratory: normal respiratory effort, lungs clear to auscultation Cardiovascular: RRR, no murmur, no edema Gastrointestinal (Abdomen): Inspection/Auscultation: + hypoactive bowel sounds Percussion/Palpation: + abdomen tender (LLQ on deep palpation) and abdomen soft; no guarding and abdomen not rigid Musculoskeletal: no cyanosis or clubbing, extremities motor strength 5/5 Spine: no lumbar spinal tenderness and no paraspinal tenderness Skin: no rashes, warm and dry Neurologic: moves all extremities and awake; not confused Psychiatric: A+Ox3, euthymic affect Genitourinary: + CVA tenderness (left) Results & Data Results & Data ([facility]) Vital Signs (Past 12 Hours) Vital Signs Temp Pulse Resp BP BP Pulse Ox 05/30/21 15:02 36.6 C 87 18 107/69 98 05/30/21 07:54 36.8 C 80 16 110/67 98 PG Care Time/CCT Total # of Minutes Spent Total Time Spent with Patient: Total time spent is greater than 50% in coordination of care (as documented) at patient's floor/unit and/or counseling patient: Coding Level of Care Code 71771 Subseq Hosp Care Lvl 2 Diagnoses Acute left flank pain R10.9 Nephrolithiasis N20.0 Nausea R11.0 History of renal calculi Z87.442 MARCOS (generalized anxiety disorder) F41.1 UTI (urinary tract infection) N39.0 Constipation K59.00
[2021-05-30] MEDS ORDERED: DOCUSATE SODIUM/SENNA 50/8.6MG TAB PO SCH (21:00)
[2021-05-31] MEDS: ACETAMINOPHEN 500 MG TAB PO SCH ×2 (00:29→07:48)
[2021-05-31] MEDS: PIPERACILLIN/TAZOBACTAM 3.375 GM in DEXTROSE 5% 100 ML IV SCH ×2 (02:28→10:29)
[2021-05-31] MEDS: HYDROmorphone INJ 0.5 MG/0.5 ML SYR IV PRN ×2 (02:44→06:45)
[2021-05-31] MEDS ORDERED: bisacodyL 10 MG SUPP PR PRN (04:20)
[2021-05-31] MEDS: KETOROLAC 30 MG/ML VIAL IV PRN (05:00)
[2021-05-31 09:13] VITALS: BP 107/71; TEMP 97.9; O2SAT 99
[2021-05-31] MEDS: buPROPion XL 150 MG TABCR PO SCH (09:52)
[2021-05-31] MEDS: LIDOCAINE 5% 1 PATCH TD SCH (09:53)
[2021-05-31] MEDS: POLYETHYLENE (MIRALAX) 17 GM PACK PO SCH (09:53)
[2021-05-31] MEDS: PATIENT'S OWN ORAL CONTRACEPTIVE PO SCH (09:53)
[2021-05-31] MEDS: MELOXICAM 7.5 MG TAB PO SCH (09:53)
--- NOTE | 2021-05-31 11:45 | Discharge Summary ---
Date of Service May 31, 2021 Admission HPI Per Admitting Provider 26 YOF with past medical history of: Nephrolithiasis, rcent cysto/ureterooscopy and stent to the right side, anxiety, migraines. Patient comes to the emergency room today for acute onset of left sided flank and abdominal pain. The pain started around 20:00 last night and was sharp and stabbing in nature. The pain is in her left flank and side to front of abdomen. This is associated with nausea without vomiting and waves of feeling flush. The pain is not constant and waxes and wanes. The pain at its worst is 8-10 and at its best 5-6/10 In the EMD the patient was given multi-modal pain strategy, as well as antiemetics. The pain would be relieved and returns as well as her nausea. She had an ultrasound of her kidneys followed by a CT scan of her abdomen and pelvis performed. The CT scan of her abdomen and pelvis, revealed multiple punctate calculi in the renal pelvis and possible calculus in the left ureter within the pelvis. Patient feels that her pain and nausea will prevent her from going home and the hospitalist service was consulted for admission. Patient will be observed overnight for continued pain control, nausea and vomiting control measures, hydrated with IVF and start on Flomax. Patient will also be further evaluated for other pathology with a TVUS secondary to lymph node, menorrhagia (which she recently started on oral contraceptives for) and rule out ovarian torsion. Her test is also Negative at this time. Did discuss with the patient the renal colic pain as well as expectations for symptom control. Patient is not Vaccinated for COVID 19 and her COVID test is pending. Principal Diagnosis Constipation Lactobacillus urinary tract infection Discharge Exam Constitutional WD/WN, vitals as above + obese; no acute distress Respiratory normal respiratory effort Gastrointestinal (Abdomen) Inspection/Auscultation: normal bowel sounds Percussion/Palpation: abdomen soft; abdomen nontender, no guarding and abdomen not rigid Musculoskeletal Spine: no lumbar spinal tenderness and no paraspinal tenderness Skin no rashes, warm and dry Neurologic moves all extremities and awake; not confused Psychiatric A+Ox3, euthymic affect Genitourinary + CVA tenderness (left) Discharge Data Allergies Allergy/AdvReac Type Severity Reaction Status Date / Time No Known Allergies Allergy Verified 05/27/21 07:42 Consultations 05/27/21 12:32 ED Decision to Admit Stat 05/29/21 10:57 Consult Urology Routine Ordered Studies 05/27/21 07:23 US renal/blad retro comp Stat IMPRESSION: 1. Left nephrolithiasis without hydronephrosis. 2. The previously noted right renal calculi are not identified by ultrasound. 3. Decompressed urinary bladder. 05/27/21 09:53 CT abd pelvis wo con Stat IMPRESSION: 1. Questionable calculus in the close proximity of the nondilated left ureter within pelvic region which may or may not represent ureterolithiasis. 2. Multiple punctate calculi within nondilated left renal pelvis. 3. Nondilated loops of bowel. Appendix is not well seen. 05/28/21 US transvaginal Routine IMPRESSION: 1. No ovarian torsion. 2. Exophytic right ovarian follicle versus paraovarian cyst measures 1.8 cm. 3. Normal sonographic appearance of the uterus and endometrium. Hospital Course (1) Acute left flank pain: (2) Nephrolithiasis: (3) Nausea: (4) History of renal calculi: (5) MARCOS (generalized anxiety disorder): (6) UTI (urinary tract infection): (7) Constipation: Damaris Leyva is a 26 year old female admitted to [facility] from May 27 - 2020 due to left sided back and groin pain. Unclear definitive cause of her pain but appeared to be relieved with bowel movements on day of discharge however urine sediment also improved with antibiotics therefore likely a combination of constipation and acute urinary tract infection. No obstructing stone was identified and on urological review we do not feel this is renal colic. Her constipation was relieved with MiraLAX BID, Senna 2 tabs and Milk of magnesia. She was advised to continue on MiraLAX and Senna as needed to aim for a bowel movement every 1-2 days. Bentyl was prescribed for abdominal cramping. Given urine sediment and left flank pain she will be treated for full antibiotic course for pyelonephritis for 14 days. Urine culture grew lactobacillus species. Lactobacillus has occasionally been acknowledged as a true UTI especially in the setting of kidney stones (there are some in her kidney pelvis). Per literature review most lactobacillus species are sensitive to amoxicillin therefore this was prescribed to finish her course. Total Time Total Time Spent Total Time Spent (In Minutes): 45 Discharge Plan Discharge Items Patient Disposition: Home - Self-Care Reason For Visit: RENAL COLIC Discharge Diagnosis: Constipation Lactobacillus urinary tract infection Condition on Discharge: Good Activity: Resume your previous activity Non-emergency contact: Primary Care Provider Call non-emergency contact if: you have any medication questions and your symptoms worsen Follow-up/Referrals: Luisa Roldan MD [Primary Care Provider] - 06/09/21 10:20 am Diet: Regular Addtl Attending Provider Instructions: You were admitted to [facility] from May 27 - 2020 due to left sided back and groin pain. You were diagnosed with constipation which was likely causing the majority of your symptoms given resolution after a bowel movement. Recommend continued use of laxatives to aim for 1 bowel movement every 1-2 days. MiraLAX is a osmotic laxative to use 1-4 times / day and is quite gentle. Senna is a stimulant laxative to use if you have not had a bowel movement for a day. Due to sediment in your urine you were also treated for a lactobacillus urinary tract infection. Unable to rule out pyelonephritis (kidney infection) due to left flank pain therefore will treat for a total course of 2 weeks with amoxicillin. Pending Studies at Discharge: No Stand-Alone Forms: [facility] [employer], Smoking Cessation Medications and DC Order Prescriptions: New polyethylene glycol 3350 [Miralax] 17 gram Powder In Packet 17 g PO QID PRN (Reason: Constipation) Qty: 30 RF: 0 sennosides-docusate sodium [Senokot-S] 8.6-50 mg Tablet 2 tab PO HS PRN (Reason: Constipation) Qty: 30 RF: 0 dicyclomine 20 mg tablet 20 mg PO QID PRN (Reason: Abdominal cramps) Qty: 30 RF: 0 oxycodone 5 mg tablet 5 mg PO Q6H PRN (Reason: pain) Qty: 10 RF: 0 amoxicillin 875 mg tablet 875 mg PO BID 12 Days Qty: 24 RF: 0 phenazopyridine [Pyridium] 200 mg tablet 200 mg PO Q8H PRN (Reason: pain) Qty: 6 RF: 0 Continued desogestrel-ethinyl estradiol [Apri] 0.15-0.03 mg tablet 1 tab PO .COMPLEX Qty: 84 RF: 3 methocarbamol 500 mg tablet 500 mg PO TID Qty: 90 RF: 0 hydroxyzine pamoate [Vistaril] 25 mg capsule 25 mg PO DAILY PRN (Reason: Anxiety) RF: 0 meloxicam [Mobic] 15 mg tablet 15 mg PO DAILY RF: 0 bupropion HCl [Wellbutrin XL] 150 mg tablet extended release 24 hr 150 mg PO QAM RF: 0 Discharge Orders: Discharge Order (Routine); Ordered 05/31/21 Ordered By: Morgan Dorsey/Other Patient Handouts: Treating Constipation, Urinary Tract Infections in Women, Understanding Kidney Stones, Preventing Kidney Stones, ED Constipation (Adult) Admission Data Admit Date/Time: 05/29/21 16:58 Attending Provider: Morgan Montero Admit Provider: Nate Lawton Primary Care Provider: Luisa Roldan Other Providers: Josh Castillo ; Eliel Guzman Coding Level of Care Code D/C DAY MANAGEMENT >30 MINS Diagnoses Acute left flank pain R10.9 Nephrolithiasis N20.0 Nausea R11.0 History of renal calculi Z87.442 MARCOS (generalized anxiety disorder) F41.1 UTI (urinary tract infection) N39.0 Constipation K59.00
[2021-05-31 11:55] VITALS: PULSE 20
== END 2021-05-31 13:38 | disposition home or self-care (01) ==
LOC: 3N 07:12 → ED 07:12 → 3N 16:06 → SUATTDRO 05-29 16:58

== ENCOUNTER 2021-12-17 19:26 | Observation (INO) ==
[2021-12-17] MEDS ORDERED: HYDROmorphone INJ 1 MG/ML SYRINGE IV STA ×2 (19:49→21:05)
--- NOTE | 2021-12-17 19:51 | Emergency Department Note ---
Impression & Plan Intractable back pain, Intractable nausea and vomiting ED Provider Note Name: MARCELA MILIAN Age: 26 Sex: F Arrives Via: Walk-In Informant: Patient ED Provider: Rey Noel MD Chief Complaint: Back pain Impression: As per impressions above Medical Decision Makin-year-old female with a long history of spinal issues who has frequent flareups of her neck and back pain. She has previously had PT, injections and even had an MRI about 3 months ago. MRI at that point showed some bulging disks in the cervical spine and no specific findings in the lumbar spine of surgical concern. She had some injections about 2 weeks ago initially was doing better. This morning she awoke with severe neck and low back pain and notes pain radiating down her left leg. She is also complaining of inability to control her urine throughout the day and has urinated on herself multiple times. Patient is using NSAIDs without improvement. Patient's but developed nausea and thus required Zofran and Ativan with them. Given her report of inability to control her bladder and intractable pain it was felt that MRI was indicated. Patient does not have a fever and she does not have white blood cell count elevation, she has a minimally elevated CRP which is not consistent with spinal epidural abscess thus I do not feel that contrast is required at this time for the MRI. Despite extensive management with many different pain and nausea medications throughout her stay patient is continuing to complain of her back pain as well as nausea from the pain medications. After 5+ hours of treating her and her still being in discomfort it was felt that hospitalization would be needed. I will note that this does seem to be coming from her back. She has no abdominal tenderness to palpation or pain. She has no respiratory complaints no chest pain and she has no neurologic deficits. There is no middle thoracic pain to suggest we need to do a thoracic MRI at this time either. Prior Medical Record and Triage/Nursing Notes reviewed by Me Additional history obtained from chart Differentials:Musculoskeletal, disc herniation, fracture, metastatic disease, cord compression, discitis, sciatica, cauda equina, infection, aortic disease, renal colic, gastrointestinal, as well as other pathologies. Vital Signs: reviewed and remarkable for no significant abnormalities Interventions: dilaudid 1mg iv x 2 , ativan 1mg iv x 2, zofran 4mg iv x 2, Toradol IV, fentanyl IV, Decadron IV, Benadryl IV Labs:Reviewed and remarkable for no significant abnormalities Imaging:MRI Cervical Spine & MRI Lumbar Spine without any acute findings as per radiologist read Plan: Disposition: Hospitalization Condition: Good History of Present Illness:26-year-old female arrives for evaluation of back pain. Patient notes she has a long history of back issues and multiple evaluations, PT, treatments, injections over the years including 2 weeks ago having cervical and lumbar injections by pain management. Patient notes that the pain was doing better the last 2 weeks. This morning she awoke with severe neck pain which radiates to her lumbar spine. And then down her leg. It is significantly worse with any movement. Throughout the afternoon she is started losing control of her bladder and now cannot feel her leg properly. Pain is better with standing and gets worse when she lays down. She says she has no control of her urine at this time just keeps urinating on herself. She has no loss of bowel control. He denies any fevers, chills, syncope, nausea, vomiting, abdominal pain, headache, chest pain or other symptoms. She has been using Tylenol, Motrin, naproxen, Voltaren pills throughout the day without improvement. She did put some Voltaren gel on her back without improvement. She denies any falls, trauma, injuries. She denies any abnormal sleep nor other inciting event. Any movement makes worse. Standing still seems to make slightly better. ROS: See above HPI for pertinent positives & negatives. A total of 10 systems reviewed and were otherwise negative. Past Medical History:See Below Past Surgical History:See Below Family History:See Below Social History:See Below Home Medications:See Below Allergies:No known drug allergies Vitals:Blood Pressure: 145/93, Pulse 94, RR 20, T 35.9C, O2 98% on RA Physical Exam: GENERAL: Patient is very uncomfortable appearing and in moderate distress. Unable to stay still EYES: No scleral icterus, unremarkable pupils. ENT: Mucous membranes moist, no nasal congestion. NECK: No masses appreciated, nomeningismus, trachea is midline. RESPIRATORY: No dyspnea. Clear to auscultation and equal bilaterally. No wheeze, no rhonchi. CARDIOVASCULAR: Regular rate and rhythm.No murmurs, rubs, gallops appreciated. GASTROINTESTINAL: Abdomen soft, non-tender, no peritonitis.Bowel sounds positive.No masses appreciated. BACK: Mild TTP over left lower lumbar region. No midline tenderness, no CVA tenderness EXTREMITIES: Normal motion all extremities, no cyanosis, no edema. NEUROLOGIC: Alert and oriented, no acute motor or sensory deficits, no focal we akness, cranial nerves grossly intact. SKIN: No rash, no jaundice, no diaphoresis. PSYCH: Appropriate GCS: 15 ED Course: Times/Reassessments: Repeat evaluations throughout the stay Rey Noel MD Past Med/Surg History Medical History Anxiety Depression GERD (gastroesophageal reflux disease) On occasions Hyperthyroidism Not on any medication Low TSH level Migraine Neck pain Ovarian cyst Pyelonephritis Ureteral calculus, left Vitamin D deficiency Surgical History Nasal fracture Repair of nasal fracture S/P cystoscopy with ureteral stent placement 12/05/20 Dr. Lamont Ambrose- Cystoscopy, Left ureteroscopy, Laser lithotripsy, Stone basket extraction of stone, Left retrograde pyelogram, Left ureteral stent placement Family History Mother Breast cancer Other Cancer Hypertension Kidney stones Denies family history of Ovarian cancer Prostate cancer Heart disease Myocardial infarction Colorectal cancer Social History (Updated 12/15/21 @ 13:48 by Gabi Gloria RN) Smoking Status: Never smoker Second Hand Exposure: No; Do You Dip or Chew Tobacco: No; Tobacco Cessation Education Requested by Patient: No Hx Alcohol Use: Yes Alcohol type: hard liquor Hx Substance Use: No Preferred Language: Mohawk Communication Ability: Effective Visual Impairment: No Limitations 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 @ [employer] How many Children do You have: 1 Other Information That Helps Us Care for You: No Feels Safe at Home: Yes Safety Concerns: Feels Safe At This Time Childhood Exposure to Second-Hand Smoke: No during the past year weight has: increased > 10 lbs Physical Activity Frequency: Daily Seatbelt Use: always Sunscreen Use: Yes Assistive Devices: None Allergies Allergies Allergy/AdvReac Type Severity Reaction Status Date / Time No Known Allergies Allergy Verified 12/15/21 13:25 Home Meds Home Medications Medication Instructions Recorded Confirmed hydroxyzine pamoate 25 mg capsule 25 mg PO DAILY PRN 03/08/21 12/17/21 (Vistaril) bupropion HCl 150 mg 24 hr tablet, 150 mg PO QAM 05/27/21 12/17/21 extended release (Wellbutrin XL) citalopram 40 mg tablet 20 mg PO HS tab 12/15/21 12/17/21 desogestrel 0.15 mg-ethinyl 1 tab PO DAILY 12/17/21 12/17/21 estradiol 0.03 mg tablet (Apri) Previous Rx's Medication Instructions Recorded metoclopramide HCl 10 mg tablet 10 mg PO Q8H PRN #12 tab 08/15/21 (Reglan) diclofenac sodium 75 mg 75 mg PO BID #30 tab 10/18/21 tablet,delayed release baclofen 10 mg tablet 10 mg PO TID #30 tab 11/28/21 Results & Data (ED) Vital Signs Vital Signs - 24 hr 12/17/21 19:30 12/17/21 20:20 12/17/21 21:00 Temperature 35.9 C L Temperature Source Temporal Artery Scan Pulse Rate 94 H Pulse Rate [Apical] 79 76 Pulse Rhythm [Apical] Regular Regular Pulse Strength [Apical] Normal Normal Respiratory Rate 20 20 20 Respiratory Effort / Characteristics Non-Labored Spontaneous Non-Labored Spontaneous Respiratory Depth Normal Normal Respiratory Pattern Regular Blood Pressure 145/93 H Blood Pressure [Right Arm] 126/78 Blood Pressure Mean 110 Blood Pressure Mean [Right Arm] 94 Blood Pressure Position [Right Arm] Lying Pulse Oximetry 98 98 98 Oxygen Delivery Method Room Air Room Air Sepsis Recent Fever Within 48 Hours No Sepsis New/Unexplained Change in Mental Status N/A Sepsis Action Taken by Nursing No Action Required 12/17/21 23:00 12/18/21 01:00 Temperature Temperature Source Pulse Rate Pulse Rate [Apical] 79 76 Pulse Rhythm [Apical] Regular Regular Pulse Strength [Apical] Normal Normal Respiratory Rate 20 18 Respiratory Effort / Characteristics Non-Labored Non-Labored Spontaneous Respiratory Depth Normal Normal Respiratory Pattern Blood Pressure Blood Pressure [Right Arm] 114/80 118/76 Blood Pressure Mean Blood Pressure Mean [Right Arm] 91 90 Blood Pressure Position [Right Arm] Lying Pulse Oximetry 97 99 Oxygen Delivery Method Room Air Room Air Sepsis Recent Fever Within 48 Hours Sepsis New/Unexplained Change in Mental Status Sepsis Action Taken by Nursing Laboratory Data Result diagrams: 12/17/21 20:30 12/17/21 20:30 Lab Results 12/17/21 12/17/21 Range/Units 20:30 20:30 WBC 8.23 (4.8-10.8) K/uL RBC 4.26 (4.2-5.4) M/uL Hgb 12.7 (12.0-16.0) g/dL Hct 38.0 (37-47) % MCV 89.2 (80-100) fL MCH 29.8 (25-34) pg MCHC 33.4 (32-36) g/dL RDW Std Deviation 42.0 (36.4-46.3) fL RDW Coeff of Baldo 13.0 (11.5-14.5) % Plt Count 273 (130-400) K/uL MPV 10.1 (7.4-10.4) fL Immature Gran % (Auto) 0.1 % Neut % (Auto) 59.6 % Lymph % (Auto) 30.3 % Divide % (Auto) 9.7 % Eos % (Auto) 0.2 % Baso % (Auto) 0.1 % Neut # (Auto) 4.90 (1.4-6.5) K/uL Lymph # (Auto) 2.49 (1.2-3.4) K/uL Divide # (Auto) 0.80 H (0.11-0.59) K/uL Eos # (Auto) 0.02 (0-0.5) K/uL Baso # (Auto) 0.01 (0-0.2) K/uL Immature Gran # (Auto) 0.01 (0.00-0.02) K/uL Sodium 138 (136-145) mmol/L Potassium 3.8 (3.5-5.1) mmol/L Chloride 107 (98-107) mmol/L Carbon Dioxide 22 (21-32) mmol/L Anion Gap 9 (3-11) BUN 12 (6-23) mg/dl Creatinine 0.73 (0.6-1.2) mg/dl Est Cr Clr Drug Dosing 115.2 ml/min Est GFR ( Amer) 130.8 ml/min Est GFR (Non-Af Amer) 112.9 ml/min BUN/Creatinine Ratio 16.4 (10-20) Glucose 96 (70-99(Fasting)) mg/dl Calcium 9.4 (8.5-10.1) mg/dl C-Reactive Protein 1.41 H (0-0.5) mg/dl Administered Medications Acetaminophen (Acetaminophen 325 Mg Tab) 650 mg PO Q4H PRN PRN Reason: pain/fever Stop: 01/17/22 02:57 Last Admin: 12/18/21 04:55 Dose: 650 mg Documented by: [id number] Baclofen (Baclofen 10 Mg Tab) 10 mg PO TID [facility] Stop: 01/17/22 08:59 Last Admin: 12/18/21 14:26 Dose: 10 mg Documented by: [id number] Admin: 12/18/21 09:04 Dose: 10 mg Documented by: [id number] Bupropion HCl (Bupropion Xl 150 Mg Tabcr) [facility] Stop: 01/17/22 08:59 Last Admin: 12/18/21 09:03 Dose: 150 mg Documented by: [id number] Diclofenac Sodium (Diclofenac Sodium 75 Mg Tabcr) 75 mg PO BID [facility] Stop: 01/17/22 08:59 Last Admin: 12/18/21 09:04 Dose: 75 mg Documented by: [id number] Duloxetine HCl (Duloxetine Hcl 30 Mg Cap) 30 mg PO QAM [facility] Stop: 01/17/22 11:14 Last Admin: 12/18/21 14:26 Dose: 30 mg Documented by: [id number] Hydromorphone HCl (Hydromorphone Inj 1 Mg/Ml Syringe) 1 mg IV Q4H PRN PRN Reason: Pain scale 7-10 Stop: 01/01/22 08:31 Last Admin: 12/18/21 13:03 Dose: 1 mg Documented by: [id number] Admin: 12/18/21 09:03 Dose: 1 mg Documented by: [id number] Dexamethasone 4 mg/ Syringe 1 mls @ 1 mls/min IV Q8H [facility] Stop: 01/17/22 07:59 Last Admin: 12/18/21 09:03 Dose: 1 mls/min Documented by: [id number] Miscellaneous (Apri - Order Awaiting Action) 1 ea N/A QS [facility] Stop: 01/17/22 07:59 Last Admin: 12/18/21 09:24 Dose: Not Given Documented by: [id number] Discontinued Medications Dexamethasone Sodium Phosphate (DexamethasonePf 10 Mg/Ml Vial) 10 mg IV NOW ONE Stop: 12/18/21 00:25 Last Admin: 12/18/21 00:57 Dose: 10 mg Documented by: [id number] Diphenhydramine HCl (Diphenhydramine 50 Mg/Ml Vial) 25 mg IV NOW STA Stop: 12/18/21 00:00 Last Admin: 12/18/21 00:12 Dose: 25 mg Documented by: [id number] Fentanyl Citrate (Fentanyl Citrate 100 Mcg/2 Ml Vial) 75 mcg IV NOW STA Stop: 12/18/21 00:00 Last Admin: 12/18/21 00:11 Dose: 75 mcg Documented by: [id number] Hydromorphone HCl (Hydromorphone Inj 1 Mg/Ml Syringe) 1 mg IV NOW STA Stop: 12/17/21 19:50 Last Admin: 12/17/21 20:19 Dose: 1 mg Documented by: [id number] Hydromorphone HCl (Hydromorphone Inj 1 Mg/Ml Syringe) 1 mg IV NOW STA Stop: 12/17/21 21:06 Last Admin: 12/17/21 21:21 Dose: 1 mg Documented by: [id number] Promethazine HCl (Phenergan) 25 mg in 51 mls @ 204 mls/hr IV NOW STA Stop: 12/17/21 23:35 Last Infusion: 12/18/21 00:03 Dose: 0 mls/hr Documented by: [id number] Admin: 12/17/21 23:29 Dose: 204 mls/hr Documented by: [id number] Sodium Chloride (Nss 1000ml) 1,000 mls @ 999 mls/hr IV .Q1H1M ONE Stop: 12/18/21 00:21 Last Infusion: 12/18/21 01:30 Dose: 0 mls/hr Documented by: [id number] Admin: 12/17/21 23:29 Dose: 999 mls/hr Documented by: [id number] Ketorolac Tromethamine (Ketorolac Tromethamine 15 Mg/Ml Vial) 15 mg IV NOW STA Stop: 12/18/21 00:00 Last Admin: 12/18/21 00:11 Dose: 15 mg Documented by: [id number] Lorazepam (Lorazepam 2 Mg/1 Ml Vial) 1 mg IV NOW STA Stop: 12/17/21 21:06 Last Admin: 12/17/21 21:21 Dose: 1 mg Documented by: [id number] Lorazepam (Lorazepam 2 Mg/1 Ml Vial) 1 mg IV NOW STA Stop: 12/17/21 22:36 Last Admin: 12/17/21 22:45 Dose: 1 mg Documented by: [id number] Ondansetron HCl (Ondansetron Inj 2 Mg/Ml 2 Ml Vial) 4 mg IV NOW STA Stop: 12/17/21 21:06 Last Admin: 12/17/21 21:22 Dose: 4 mg Documented by: [id number] Ondansetron HCl (Ondansetron Inj 2 Mg/Ml 2 Ml Vial) 4 mg IV NOW STA Stop: 12/17/21 22:36 Last Admin: 12/17/21 22:45 Dose: 4 mg Documented by: [id number] Imaging Data Radiologist's Impression: Lumbar Spine MRI 12/17/21 19:49 MR lumbar spine wo con CLINICAL HISTORY: low back pain, left sciatica, loss bladder control. COMPARISON: 09/21/2021 TECHNIQUE: Multiplanar multisequence images of the Lumbar Spine were performed without contrast. FINDINGS: There is no evidence for vertebral body fracture. The heights of the vertebral bodies are maintained. The vertebral bodies are in anatomic alignment. Homogeneous marrow signal is seen without evidence for marrow edema or marrow replacement. T12-L1: The disc space height is maintained. There are no focal disc protrusions or extrusions identified. The thecal sac and epidural fat are maintained. The neural foramen are patent bilaterally. There is no evidence for nerve root encroachment. The facet joints are within normal limits. L1-2: The disc space height is maintained. There are no focal disc protrusions or extrusions identified. The thecal sac and epidural fat are maintained. The neural foramen are patent bilaterally. There is no evidence for nerve root encroachment. The facet joints are within normal limits. L2-3: The disc space height is maintained. There are no focal disc protrusions or extrusions identified. The thecal sac and epidural fat are maintained. The neural foramen are patent bilaterally. There is no evidence for nerve root encroachment. The facet joints are within normal limits. L3-4: The disc space height is maintained. There are no focal disc protrusions or extrusions identified. The thecal sac and epidural fat are maintained. The neural foramen are patent bilaterally. There is no evidence for nerve root encroachment. The facet joints are within normal limits. L4-5: The disc space height is maintained. There are no focal disc protrusions or extrusions identified. The thecal sac and epidural fat are maintained. The neural foramen are patent bilaterally. There is no evidence for nerve root encroachment. The facet joints are within normal limits. L5-S1: Compared to the previous examination, there is again mild disc space narrowing and disc desiccation there has been interval development of a small central to left paracentral disc protrusion/herniation measuring approximately 4 mm. Due to the increase amount of epidural fat anterior to the thecal sac at this level, no encroachment upon the thecal sac is seen. However, there is impingement upon the left S1 nerve root as it enters the lateral recess. No swelling of the nerve root is seen. The remaining nerve roots appear normal. No foraminal encroachment is seen. The facet joints are within normal limits. IMPRESSION: 1. Compared to the previous examination, there has been slight interval enlargement of small central to left paracentral disc protrusion/herniation at L5-S1. This abuts the left S1 nerve root without definite compression or swelling of the nerve root. ACT 112: Negative or not required by law. Electronically signed by: Bertrand Zee M.D. 12/18/2021 9:19 AM Discharge Plan Visit Data Chief Complaint: Back Injury/Pain Stated Complaint: PAIN FROM NECK DOWN SPINE,UNBEARABLE ED Provider: Rey Noel Discharge Problem: Intractable back pain, Intractable nausea and vomiting Patient Disposition: Admitted As Inpatient Discharge Instructions Interventions: ED Discharge Assessment Last Done: 12/18/21 02:30
[2021-12-17 20:45] LABS: Basophils # (auto) 0.01 K/uL (0-0.2); Basophils % (auto) 0.1 %; Eosinophils # (auto) 0.02 K/uL (0-0.5); Eosinophils % (auto) 0.2 %; Hemoglobin 12.7 g/dL (12.0-16.0); Immature Granulocytes # (auto) 0.01 K/uL (0.00-0.02); Immature Granulocytes % (auto) 0.1 %; Lymphocytes # (auto) 2.49 K/uL (1.2-3.4); Lymphocytes % (auto) 30.3 %; Mean Corpuscular Hemoglobin 29.8 pg (25-34); Mean Corpuscular Hgb Conc 33.4 g/dL (32-36); Mean Corpuscular Volume 89.2 fL (80-100); Mean Platelet Volume 10.1 fL (7.4-10.4); Monocytes % (auto) 9.7 %; Neutrophils % (auto) 59.6 %; Platelet Count 273 K/uL (130-400); Red Blood Count 4.26 M/uL (4.2-5.4); White Blood Count 8.23 K/uL (4.8-10.8)
[2021-12-17 21:02] LABS: BUN Creatinine Ratio 16.4 (10-20); C Reactive Protein 1.41 mg/dl (0-0.5); Calcium 9.4 mg/dl (8.5-10.1); Creatinine Clr Calc Pharmacy 115.2 ml/min; Est GFR (African American) 130.8 ml/min; Est GFR (Non-African American) 112.9 ml/min; Potassium 3.8 mmol/L (3.5-5.1)
[2021-12-17] MEDS ORDERED: ONDANSETRON INJ 2 MG/ML 2 ML VIAL IV STA ×2 (21:05→22:35)
[2021-12-17] MEDS ORDERED: LORazepam 2 MG/1 ML VIAL IV STA ×2 (21:05→22:35)
--- NOTE | 2021-12-17 23:03 | Magnetic Resonance Report ---
MR OF THE CERVICAL SPINE WITHOUT IV CONTRAST CLINICAL HISTORY: neck pain, loss bladder control TECHNIQUE: MRI of the cervical spine is performed utilizing various T1 and T2 sequences in the axial and sagittal planes. IV contrast was not administered for this examination. Comparison: Comparison is made to MRI cervical spine 09/21/2031 FINDINGS: Cervical spine: Vertebral body height and alignment are maintained throughout the cervical spine. The atlantodental articulation appears maintained. No destructive bony lesion is seen. Intervertebral discs: Disks are normal in height and signal. Spinal cord: The cervical spinal cord is normal in morphology and signal intensity. C2-C3: Unremarkable. C3-C4: Unremarkable. C4-C5: Unremarkable. C5-C6: Left greater than right posterior disc bulge is seen. There is mild canal stenosis and left ne ural foraminal stenosis. C6-C7: Broad-based posterior disc protrusion with mild canal stenosis and no significant neuroforamin al stenosis. C7-T1: Unremarkable. Soft tissues: Unremarkable. Brain parenchyma: Partially imaged brain parenchyma at the skull base is within normal limits. IMPRESSION: Essentially unchanged appearance of posterior disc bulges at C5-C6 and C6-C7 with mild ca nal stenosis and left neuroforaminal stenosis. ACT 112: Negative or not required by law. Electronically signed by: Mati Sandoval M.D. 12/17/2021 11:01 PM
[2021-12-17] MEDS ORDERED: SODIUM CHLORIDE 0.9% 1000ML 1,000 ML IV ONE (23:21)
[2021-12-17] MEDS ORDERED: PROMETHAZINE 25 MG/51 ML BAG IV STA (23:21)
[2021-12-17] MEDS ORDERED: diphenhydrAMINE 50 MG/ML VIAL IV STA (23:59)
[2021-12-17] MEDS ORDERED: fentaNYL citrate 100 MCG/2 ML VIAL IV STA (23:59)
[2021-12-17] MEDS ORDERED: KETOROLAC TROMETHAMINE 15 MG/ML VIAL IV STA (23:59)
[2021-12-18] MEDS ORDERED: dexAMETHasone**PF** 10 MG/ML VIAL IV ONE (00:24)
--- NOTE | 2021-12-18 01:26 | History & Physical Report ---
Date of Service December 18, 2021 Assessment & Plan (1) Lumbar radiculopathy: Plan: Left lower extremity radiculopathy/neck pain/Thoracics pain/cervical paraspinal muscle spasm/lumbar paraspinal muscle spasm- Patient has received multiple medications in the emergency department including Dilaudid 1 mg IV x2, lorazepam 1 mg IV x2, fentanyl citrate 75 mcg IV, Toradol 15 mg IV, Benadryl 25 mg IV and dexamethasone 10 mg IV. All without any change in her reported pain. Baclofen 10 mg p.o. 3 times daily as needed muscle spasm Dexamethasone 4 mg IV every 8 hours Acetaminophen 650 mg p.o. every 6 hours as needed mild pain or fever Toradol 30 mg IV every 6 hours as needed moderate pain Dilaudid 0.2 mg IV every 6 hours as needed severe pain Minimize narcotics She has undergone a recent pain injection by Dr. Nava on 10/25/2021, and she will be consulted (2) Neck pain: Plan: See above (3) Cervical paraspinal muscle spasm: Plan: See above (4) Lumbar paraspinal muscle spasm: Plan: See above (5) Thoracic back pain: Plan: See above (6) MARCOS (generalized anxiety disorder): Plan: Continue bupropion, citalopram and hydroxyzine (7) Nausea: Plan: Continue Phenergan 25 mg IV every 6 hours as needed History of Present Illness Chief Complaint: The patient presents to the emergency department with intractable neck, back and left lower extremity radicular pain Primary Care Provider: Luisa Roldan MD The patient is a 26-year-old female with a past medical history including chronic back pain, who presents to the emergency department with a worsening of her usual pain. She has had previous injections, most recently by Dr. Nava on 10/25/2021. She has received multiple medications in the emergency department including: Fentanyl, Dilaudid, dexamethasone, and Toradol without any change in her pain. She denies any recent trauma that may exacerbate her pain. Allergies Allergy/AdvReac Type Severity Reaction Status Date / Time No Known Allergies Allergy Verified 12/15/21 13:25 Home Medications Medication Instructions Recorded Confirmed Type hydroxyzine pamoate 25 mg capsule 25 mg PO DAILY PRN 03/08/21 12/17/21 History (Vistaril) bupropion HCl 150 mg 24 hr tablet, 150 mg PO QAM 05/27/21 12/17/21 History extended release (Wellbutrin XL) metoclopramide HCl 10 mg tablet 10 mg PO Q8H PRN #12 tab 08/15/21 12/17/21 Rx (Reglan) diclofenac sodium 75 mg 75 mg PO BID #30 tab 10/18/21 12/17/21 Rx tablet,delayed release baclofen 10 mg tablet 10 mg PO TID #30 tab 11/28/21 12/17/21 Rx citalopram 40 mg tablet 20 mg PO HS tab 12/15/21 12/17/21 History desogestrel 0.15 mg-ethinyl 1 tab PO DAILY 12/17/21 12/17/21 History estradiol 0.03 mg tablet (Apri) Past Med/Surg History Medical History Anxiety Depression GERD (gastroesophageal reflux disease) On occasions Hyperthyroidism Not on any medication Low TSH level Migraine Neck pain Ovarian cyst Pyelonephritis Ureteral calculus, left Vitamin D deficiency Surgical History Nasal fracture Repair of nasal fracture S/P cystoscopy with ureteral stent placement 12/05/20 Dr. Lamont Ambrose- Cystoscopy, Left ureteroscopy, Laser lithotripsy, Stone basket extraction of stone, Left retrograde pyelogram, Left ureteral stent placement Family History Mother Breast cancer Other Cancer Hypertension Kidney stones Denies family history of Ovarian cancer Prostate cancer Heart disease Myocardial infarction Colorectal cancer Social History (Updated 12/15/21 @ 13:48 by Gabi Gloria RN) Smoking Status: Never smoker Second Hand Exposure: No; Hx Alcohol Use: Yes Alcohol type: wine and hard liquor Hx Substance Use: No Preferred Language: Portuguese Communication Ability: Effective Visual Impairment: No Limitations Hearing Ability: Normal Academic Registrar Required: No Beliefs That Will Affect Care: None marital status: Single Current Living Situation: Parent Current Living Situation Comment: Live with parents and child. 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 @ [employer] How many Children do You have: 1 Feels Safe at Home: Yes Childhood Exposure to Second-Hand Smoke: No during the past year weight has: increased > 10 lbs Physical Activity Frequency: Daily Seatbelt Use: always Sunscreen Use: Yes Assistive Devices: None Review of Systems Review of Systems: The patient denies chest pain, palpitations, shortness of breath, dyspnea on exertion, cough, lower extremity swelling, sore throat, fevers, chills, sweats, weight change, fatigue, diarrhea , constipation, abdominal pain, pelvic pain, blood in urine or stool, dysuria, urinary frequency or urgency, lightheadedness, dizziness, headache, memory loss, loss of consciousness, rash, abnormal bruising or bleeding, imbalance, focal or generalized weakness, numbness or tingling in arms or right leg, generalized arthralgias or myalgias, or night sweats. The review of systems is otherwise negative other than for that already noted above, and at least 10 systems have been reviewed. Physical Exam Physical Exam: The patient is awake, alert and oriented 3, well developed and well nourished, normocephalic and atraumatic, lying in bed and in no acute distress. HEENT--PERRL, EOMI, mucous membranes and oropharynx normal. Neck--supple. No JVD. No bruits. Thyroid normal, trachea midline, no adenopathy. Heart--normal S1 and S2. No murmurs, rubs or gallops. Lungs--clear bilaterally, no respiratory distress, no accessory muscle use. Abdomen--normal bowel sounds and soft. Nontender. Nondistended, no hernias or masses, no organomegaly. Extremities--no cyanosis or clubbing. No edema. There are good distal pulses b/l. Dermatologic--normal skin turgor, normal color, no abnormal lymph nodes, no rash. Neurologic--cranial nerves II through XII grossly intact. Rheumatologic--no joint pain. Complains of left paraspinals pain pain from neck to sacral area and then from sacral area to foot Psychiatric--normal affect. Results & Data Results & Data ([facility]) Vital Signs (Past 12 Hours) Vital Signs Temp Pulse Pulse Resp BP Pulse Ox 12/17/21 20:20 79 20 98 12/17/21 19:30 35.9 C L 94 H 20 145/93 H 98 Laboratory Results Laboratory Results WBC 8.23 K/uL (4.8-10.8) 12/17/21 20:30 RBC 4.26 M/uL (4.2-5.4) 12/17/21 20:30 Hgb 12.7 g/dL (12.0-16.0) 12/17/21 20: Hct 38.0 % (37-47) 12/17/21 20: MCV 89.2 fL (80-100) 12/17/21 20: MCH 29.8 pg (25-34) 12/17/21: MCHC 33.4 g/dL (32-36) 12/17/21: RDW Std Deviation 42.0 fL (36.4-46.3) 12/17/21 RDW Coeff of Baldo 13.0 % (11.5-14.5) 12/17/21 Plt Count 273 K/uL (130-400) 12/17/21: MPV 10.1 fL (7.4-10.4) 12/17/21 20: Immature Gran % (Auto) 0.1 % 12/17/21 20: Neut % (Auto) 59.6 % 12/17/21 20:30 Lymph % (Auto) 30.3 % 12/17/21 20:30 [place] % (Auto) 9.7 % 12/17/21 20: Eos % (Auto) 0.2 % 12/17/21 20: Baso % (Auto) 0.1 % 12/17/21 20:30 Neut # (Auto) 4.90 K/uL (1.4-6.5) 12/17/21 20: Lymph # (Auto) 2.49 K/uL (1.2-3.4) 12/17/21 20: [place] # (Auto) 0.80 K/uL (0.11-0.59) H 12/17/21 20: Eos # (Auto) 0.02 K/uL (0-0.5) 12/17/21 20: Baso # (Auto) 0.01 K/uL (0-0.2) 12/17/21 20:30 Immature Gran # (Auto) 0.01 K/uL (0.00-0.02) 12/17/21 20: Sodium 138 mmol/L (136-145) 12/17/21 20:30 Potassium 3.8 mmol/L (3.5-5.1) 12/17/21 20:30 Chloride 107 mmol/L (98-107) 12/17/21 20:30 Carbon Dioxide 22 mmol/L (21-32) 12/17/21 20:30 Anion Gap 9 (3-11) 12/17/21 20:30 BUN 12 mg/dl (6-23) 12/17/21 20:30 Creatinine 0.73 mg/dl (0.6-1.2) 12/17/21 20:30 Est Cr Clr Drug Dosing 115.2 ml/min 12/17/21 20:30 Est GFR ( Amer) 130.8 ml/min 12/17/21 20:30 Est GFR (Non-Af Amer) 112.9 ml/min 12/17/21 20:30 BUN/Creatinine Ratio 16.4 (10-20) 12/17/21 20:30 Glucose 96 mg/dl (70-99(Fasting)) 12/17/21 20:30 Calcium 9.4 mg/dl (8.5-10.1) 12/17/21 20:30 C-Reactive Protein 1.41 mg/dl (0-0.5) H 12/17/21 20:30 Urine Color Yellow 12/18/21 01:42 Urine Appearance Clear (Clear) 12/18/21 01:42 Urine pH 6.5 (4.5-7.5) 12/18/21 01:42 Ur Specific [place] 1.019 (1.000-1.030) 12/18/21 01:42 Urine Protein Negative (Negative) 12/18/21 01:42 Urine Glucose (UA) Negative (Negative) 12/18/21 01:42 Urine Ketones Negative (Negative) 12/18/21 01:42 Urine Blood Negative (Negative) 12/18/21 01:42 Urine Nitrite Negative (Negative) 12/18/21 01:42 Urine Bilirubin Negative (Negative) 12/18/21 01:42 Urine Urobilinogen Negative (Negative) 12/18/21 01:42 Ur Leukocyte Esterase Negative (Negative) 12/18/21 01:42 Urine Test Negative (Negative) 12/18/21 01:42 SARS-CoV-2, RNA, NAAT NEGATIVE (NEGATIVE) 12/18/21 01:45 Impressions Cervical Spine MRI 12/17/21 19:49 MR OF THE CERVICAL SPINE WITHOUT IV CONTRAST CLINICAL HISTORY: neck pain, loss bladder control TECHNIQUE: MRI of the cervical spine is performed utilizing various T1 and T2 sequences in the axial and sagittal planes. IV contrast was not administered for this examination. Comparison: Comparison is made to MRI cervical spine 09/21/2031 FINDINGS: Cervical spine: Vertebral body height and alignment are maintained throughout the cervical spine. The atlantodental articulation appears maintained. No destructive bony lesion is seen. Intervertebral discs: Disks are normal in height and signal. Spinal cord: The cervical spinal cord is normal in morphology and signal intensity. C2-C3: Unremarkable. C3-C4: Unremarkable. C4-C5: Unremarkable. C5-C6: Left greater than right posterior disc bulge is seen. There is mild canal stenosis and left neural foraminal stenosis. C6-C7: Broad-based posterior disc protrusion with mild canal stenosis and no significant neuroforaminal stenosis. C7-T1: Unremarkable. Soft tissues: Unremarkable. Brain parenchyma: Partially imaged brain parenchyma at the skull base is within normal limits. IMPRESSION: Essentially unchanged appearance of posterior disc bulges at C5-C6 and C6-C7 with mild canal stenosis and left neuroforaminal stenosis. ACT 112: Negative or not required by law. Electronically signed by: Mati Sandoval M.D. 12/17/2021 11:01 PM Diagnostic Findings [facility] Patient: MARCELA MILIAN (Female) : 89 Status: ER Date: 12/17/21 22:50 Room #: c9 History: 26-year-old female with back pain. long history of back issues , PT, treatments, injections over the years including 2 weeks ago, having cervical and lumbar injections by pain management. Patient notes that the pain was doing better the last 2 weeks. This morning she awoke with severe neck pain which radiates down left arm with numbness, pain in her lumbar spine, and then down her left leg with numbness. It is significantly worse with any movement. Throughout the afternoon she is started losing control of her bladder and now cannot feel her left leg properly. Pain is better with standing and gets worse when she lays down. She says she has no control of her urine at this time just keeps urinating on herself. She has no loss of bowel control. denies any falls, trauma, injuries Slices: 219 Priors: Tech: Wyatt Pike @ [phone] Exams: MRI C SPINE Contrast: Accession Numbers: [id number] Referring Physician: REFERRED SELF Preliminary Findings Only See Final Report For Complete Findings MRI C SPINE : Comparison is made to MRI cervical spine on 09/21/2021. No acute fracture. Mild degenerative changes of the spine. Left paracentral disc protrusion at C5- C6 mildly narrows the left lateral recess. No significant spinal canal or neural foraminal stenoses in the cervical spine. Normal visualized spinal cord. Radiologist: Maria Isabel Solorio M.D. Study ready at 23:36 and initial results transmitted at 23:49 *This report constitutes a preliminary interpretation only. Non-acute findings felt to be unrelated to the clinical presentation may not be discussed in this report. The study will be interpreted and a final report will be generated by the local Radiologist the following shift. To reach the [facility] radiology department call [phone]. If a discrepancy is found between the preliminary and final interpretations of this study, please notify us via our Client Portal at [email or web address], under QA Exams. You can also fax this report with a description of the discrepancy, or include the final report, to our daytime fax number [phone]. If faxing, please indicate the severity of discrepancy using one of the following categories: [ ] 1 - Agree/Informational [ ] 2 - Unlikely to Affect Management [ ] 3 - Possible Eventual Change of Management [ ] 4 - Probable Immediate Change of Management For all other patient related information, please fax us at [phone]. [id number] [facility] Patient: MARCELA MILIAN (Female) : 89 Status: ER Date: 12/17/21 23:06 Room #: History: 26-year-old female with back pain. long history of back issues , PT, treatments, injections over the years including 2 weeks ago, having cervical and lumbar injections by pain management. Patient notes that the pain was doing better the last 2 weeks. This morning she awoke with severe neck pain which radiates down left arm with numbness, pain in her lumbar spine, and then down her left leg with numbness. It is significantly worse with any movement. Throughout the afternoon she is started losing control of her bladder and now cannot feel her left leg properly. Pain is better with standing and gets worse when she lays down. She says she has no control of her urine at this time just keeps urinating on herself. She has no loss of bowel control. denies any falls, trauma, injuries Slices: 110 Priors: Tech: Wyatt Pike @ [phone] Exams: MRI L SPINE Contrast: Accession Numbers: [id number] Referring Physician: REFERRED SELF Preliminary Findings Only See Final Report For Complete Findings MRI L SPINE : Comparison is made with MRI lumbar spine 09/21/21, and lumbar x-rays 05/29/21. Stable, mild annular tear and disc bulge L5-S1, to the left of midline. No abnormal conus signal, disc extrusion, central spinal stenosis or interval change. Radiologist: Kellee Kapadia M.D. Study ready at 23:13 and initial results transmitted at 00:37 *This report constitutes a preliminary interpretation only. Non-acute findings felt to be unrelated to the clinical presentation may not be discussed in this report. The study will be interpreted and a final report will be generated by the local Radiologist the following shift. To reach the [facility] radiology department call [phone]. If a discrepancy is found between the preliminary and final interpretations of this study, please notify us via our Client Portal at [email or web address], under QA Exams. You can also fax this report with a description of the discrepancy, or include the final report, to our daytime fax number [phone]. If faxing, please indicate the severity of discrepancy using one of the following categories: [ ] 1 - Agree/Informational [ ] 2 - Unlikely to Affect Management [ ] 3 - Possible Eventual Change of Management [ ] 4 - Probable Immediate Change of Management For all other patient related information, please fax us at [phone]. [id number] Code Status & VTE Plan Code Status Full code VTE Prophylaxis Plan VTE Prophylaxis will be ordered: Yes PG Care Time/CCT Total # of Minutes Spent Total Time Spent with Patient: Total time spent is greater than 50% in coordination of care (as documented) at patient's floor/unit and/or counseling patient: Coding Level of Care Code INT OBSERVATION CARE 70M LVL 3 Diagnoses Lumbar radiculopathy M54.16 Neck pain M54.2 MARCOS (generalized anxiety disorder) F41.1 Cervical paraspinal muscle spasm M62.838 Lumbar paraspinal muscle spasm M62.830 Thoracic back pain M54.6 Nausea R11.0
[2021-12-18 01:49] LABS: Appearance Urine Clear (Clear); Bilirubin Urine Negative (Negative); Blood Urine Negative (Negative); Color Urine Yellow; Glucose Urine UA Negative (Negative); Ketones Urine Negative (Negative); Leukocyte Esterase Urine Negative (Negative); Nitrite Urine Negative (Negative); Protein Urine Negative (Negative); Specific Gravity Urine 1.019 (1.000-1.030); Urobilinogen Urine Negative (Negative); pH Urine 6.5 (4.5-7.5)
[2021-12-18 01:51] LABS: Pregnancy Test, Urine Negative (Negative)
[2021-12-18] MEDS ORDERED: METOCLOPRAMIDE HCL 10 MG TABLET PO PRN (02:58)
[2021-12-18] MEDS ORDERED: hydrOXYzine HCl 25 MG TAB PO PRN (02:58)
[2021-12-18] MEDS ORDERED: ONDANSETRON INJ 2 MG/ML 2 ML VIAL IV PRN (02:58)
[2021-12-18] MEDS: ACETAMINOPHEN 325 MG TAB PO PRN (04:55)
[2021-12-18] MEDS ORDERED: HYDROmorphone INJ 0.5 MG/0.5 ML SYR IV PRN (08:32)
[2021-12-18] MEDS: HYDROmorphone INJ 1 MG/ML SYRINGE IV PRN ×4 (09:03→20:58)
[2021-12-18] MEDS: buPROPion XL 150 MG TABCR PO SCH (09:03)
[2021-12-18] MEDS: dexAMETHasone 4 MG in SYRINGE 0 ML IV SCH ×2 (09:03→17:08)
[2021-12-18] MEDS: BACLOFEN 10 MG TAB PO SCH ×3 (09:04→20:57)
[2021-12-18] MEDS: DICLOFENAC SODIUM 75 MG TABCR PO SCH ×2 (09:04→20:57)
--- NOTE | 2021-12-18 09:20 | Magnetic Resonance Report ---
MR lumbar spine wo con CLINICAL HISTORY: low back pain, left sciatica, loss bladder control. COMPARISON: 09/21/2021 TECHNIQUE: Multiplanar multisequence images of the Lumbar Spine were performed without contrast. FINDINGS: There is no evidence for vertebral body fracture. The heights of the vertebral bodies are maintained. The vertebral bodies are in anatomic alignment. Homogeneous marrow signal is seen without evidence f or marrow edema or marrow replacement. T12-L1: The disc space height is maintained. There are no focal disc protrusions or extrusions ident ified. The thecal sac and epidural fat are maintained. The neural foramen are patent bilaterally. Th ere is no evidence for nerve root encroachment. The facet joints are within normal limits. L1-2: The disc space height is maintained. There are no focal disc protrusions or extrusions identi fied. The thecal sac and epidural fat are maintained. The neural foramen are patent bilaterally. The re is no evidence for nerve root encroachment. The facet joints are within normal limits. L2-3: The disc space height is maintained. There are no focal disc protrusions or extrusions identi fied. The thecal sac and epidural fat are maintained. The neural foramen are patent bilaterally. The re is no evidence for nerve root encroachment. The facet joints are within normal limits. L3-4: The disc space height is maintained. There are no focal disc protrusions or extrusions identi fied. The thecal sac and epidural fat are maintained. The neural foramen are patent bilaterally. The re is no evidence for nerve root encroachment. The facet joints are within normal limits. L4-5: The disc space height is maintained. There are no focal disc protrusions or extrusions identi fied. The thecal sac and epidural fat are maintained. The neural foramen are patent bilaterally. The re is no evidence for nerve root encroachment. The facet joints are within normal limits. L5-S1: Compared to the previous examination, there is again mild disc space narrowing and disc desic cation there has been interval development of a small central to left paracentral disc protrusion/he rniation measuring approximately 4 mm. Due to the increase amount of epidural fat anterior to the th ecal sac at this level, no encroachment upon the thecal sac is seen. However, there is impingement up on the left S1 nerve root as it enters the lateral recess. No swelling of the nerve root is seen. The remaining nerve roots appear normal. No foraminal encroachment is seen. The facet joints are within normal limits. IMPRESSION: 1. Compared to the previous examination, there has been slight interval enlargement of small central to left paracentral disc protrusion/herniation at L5-S1. This abuts the left S1 nerve root without de finite compression or swelling of the nerve root. ACT 112: Negative or not required by law. Electronically signed by: Bertrand Zee M.D. 12/18/2021 9:19 AM
--- NOTE | 2021-12-18 12:01 | Orthopedic Consultation ---
Date of Consultation December 18, 2021 Assessment & Plan (1) Lumbar radiculopathy: MRI of the cervical and lumbar spine available for review. She does have evidence of C5-C6 disc herniation on the left with foraminal encroachment. The MRI lumbar spine demonstrates advanced degenerative change L5-S1 hence of retrolisthesis and annular tear. The small protrusion but no severe neural compression is appreciated on this static film. Plan at this time would like to obtain lumbar x-rays to include flexion-extension views. We will also obtain a CAT scan lumbar spine for further bony detail. We will reconsult interventional pain management for their input. Clearly would approach any surgical fashion with caution as she is only 26 years of age. History of Present Illness Reason for Consultation: Severe back and left leg pain Attending Physician: Emory Blum History of Present Illness This is a 26-year-old female presents with marked decline in status. She describes pain involving the left buttock posterior thigh extending down the lower leg into the foot. Is been progressive in nature. The right lower extremity asymptomatic. 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 She undergone extensive course of care over the past several months which include skin care specialist a course of physical therapy as well as an epidural injection. She states the epidural injection lasted approximately 3 weeks. She denies any recent trauma fall or event that precipitated her pain. Allergies Allergy/AdvReac Type Severity Reaction Status Date / Time No Known Allergies Allergy Verified 12/15/21 13:25 Home Medications Medication Instructions Recorded Confirmed Type hydroxyzine pamoate 25 mg capsule 25 mg PO DAILY PRN 03/08/21 12/17/21 History (Vistaril) bupropion HCl 150 mg 24 hr tablet, 150 mg PO QAM 05/27/21 12/17/21 History extended release (Wellbutrin XL) metoclopramide HCl 10 mg tablet 10 mg PO Q8H PRN #12 tab 08/15/21 12/17/21 Rx (Reglan) diclofenac sodium 75 mg 75 mg PO BID #30 tab 10/18/21 12/17/21 Rx tablet,delayed release baclofen 10 mg tablet 10 mg PO TID #30 tab 11/28/21 12/17/21 Rx citalopram 40 mg tablet 20 mg PO HS tab 12/15/21 12/17/21 History desogestrel 0.15 mg-ethinyl 1 tab PO DAILY 12/17/21 12/17/21 History estradiol 0.03 mg tablet (Apri) Patient History Medical History Anxiety Depression GERD (gastroesophageal reflux disease) On occasions Hyperthyroidism Not on any medication Low TSH level Migraine Neck pain Ovarian cyst Pyelonephritis Ureteral calculus, left Vitamin D deficiency Surgical History Nasal fracture Repair of nasal fracture S/P cystoscopy with ureteral stent placement 12/05/20 Dr. Lamont Ambrose- Cystoscopy, Left ureteroscopy, Laser lithotripsy, Stone basket extraction of stone, Left retrograde pyelogram, Left ureteral stent placement Family History Mother Breast cancer Other Cancer Hypertension Kidney stones Denies family history of Ovarian cancer Prostate cancer Heart disease Myocardial infarction Colorectal cancer Social History (Updated 12/15/21 @ 13:48 by Gabi Gloria RN) Smoking Status: Never smoker Second Hand Exposure: No; Do You Dip or Chew Tobacco: No; Tobacco Cessation Education Requested by Patient: No Hx Alcohol Use: Yes Alcohol type: hard liquor Hx Substance Use: No Preferred Language: Croatian Communication Ability: Effective Visual Impairment: No Limitations Hearing Ability: Normal Claims Director Required: No Beliefs That Will Affect Care: None marital status: Single Current Living Situation: Parent Current Living Situation Comment: Live with parents and child. 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 She exhibits excellent strength testing upper extremities. Lower extremities rated represent a 5 or 5 dorsiflexion plantarflexion extensor hallucis longus. She has tension signs straight leg raising on the left negative on the right. Sensory appears to be symmetric and intact. Results & Data ([facility]) Vital Signs (Past 12 Hours) Vital Signs Temp Pulse Pulse Pulse Pulse Resp BP 12/18/21 07:55 36.8 C 87 18 12/18/21 02:39 36.5 C 95 H 14 12/18/21 02:30 36.8 C 80 20 114/78 12/18/21 01:56 79 20 12/18/21 01:00 76 18 BP BP Pulse Ox 12/18/21 07:55 118/78 97 12/18/21 02:39 133/91 98 12/18/21 02:30 100 12/18/21 01:56 116/78 98 12/18/21 01:00 118/76 99
--- NOTE | 2021-12-18 12:45 | XRay Report ---
XR lumbar spine 6V w bending CLINICAL HISTORY: back and leg pain. COMPARISON STUDY: 03/29/2021 TECHNIQUE: 5 Views of the lumbar spine FINDINGS: Bones: There is no evidence for fracture or malalignment. The heights of the vertebral bodies are earl ntained. There are no lytic or blastic lesions present. Disc spaces: There is mild disc space narrowing at L5-S1. Facet joints: Mild hypertrophic facet joint disease is also again seen at L5-S1. Soft tissues: The paraspinal soft tissues are within normal limits. IMPRESSION: 1. No acute abnormality. 2. Degenerative disc and degenerative facet joint disease are again seen at L5-S1. ACT 112: Negative or not required by law. Electronically signed by: Bertrand Zee M.D. 12/18/2021 12:44 PM
--- NOTE | 2021-12-18 12:48 | CT Scan Report ---
CT lumbar spine wo con CLINICAL HISTORY: back and leg pain COMPARISON STUDY: MR lumbar spine from 12/17/2021 CT DOSE: 717.10 mGy.cm TECHNIQUE: Standard CT of the Lumbar Spine was performed without IV contrast. A dose lowering techni que was utilized adhering to the principles of ALARA. FINDINGS: Bones: There is no evidence for an acute fracture or malalignment. The heights of the vertebral megan s are maintained. The vertebral bodies are in anatomic alignment. Disc spaces: There is again mild disc space narrowing at L5-S1 with a small central to left paracentr al disc protrusion/herniation also again seen. Facet joints: Mild hypertrophic facet joint disease is present L5-S1. The sacroiliac joints are intac t bilaterally. Soft tissues: The prevertebral soft tissues are within normal limits. IMPRESSION: 1. Mild disc space narrowing with small central to left paracentral disc protrusion/herniation is aga in seen at L5-S1. 2. Mild hypertrophic facet joint disease is also seen at L5-S1. ACT 112: Negative or not required by law. Electronically signed by: Bertrand Zee M.D. 12/18/2021 12:47 PM
[2021-12-18] MEDS: DULoxetine HCL 30 MG CAP PO SCH (14:26)
--- NOTE | 2021-12-18 16:04 | Hospitalist Progress Note ---
Date of Service December 18, 2021 Assessment & Plan (1) Lumbar radiculopathy: Plan: Left lower extremity radiculopathy/neck pain/Thoracics pain/cervical paraspinal muscle spasm/lumbar paraspinal muscle spasm- Patient has received multiple medications in the emergency department including Dilaudid 1 mg IV x2, lorazepam 1 mg IV x2, fentanyl citrate 75 mcg IV, Toradol 15 mg IV, Benadryl 25 mg IV and dexamethasone 10 mg IV. All without any change in her reported pain. Plan: Baclofen 10 mg p.o. 3 times daily as needed muscle spasm Dexamethasone 4 mg IV every 8 hours Acetaminophen 650 mg p.o. every 6 hours as needed mild pain or fever Continue diclofenac 75 mg twice daily Dilaudid 0.5mg IV q4h for pain 5-7, 1mg IV q4h pain scale 8-10 K pad to affected area She has undergone a recent pain injection by Dr. Nava on 10/25/2021, and she will be consulted, appreciate recommendations Dr. Bennett, orthospine, consultedappreciate recommendations (2) Neck pain: Plan: See above (3) Cervical paraspinal muscle spasm: Plan: See above (4) Lumbar paraspinal muscle spasm: Plan: See above (5) Thoracic back pain: Plan: See above (6) MARCOS (generalized anxiety disorder): Plan: Continue bupropion and hydroxyzine States she does not take Celexa as prescribed Trial of Cymbalta 30mg daily as it may provide additional neuropathic pain relief Discussed with RN that I will not be ordering oral Ativan on this patient given the amount of narcotics that she is receiving for her back pain, additionally s he is not on this medication at home (7) Nausea: Plan: Zofran 4 mg IV every 6 hours as needed nausea or vomiting Plan: Interventions as outlined above Appreciate input from Dr. Bennett as well as pain management D/C planning Admission and Anticipated Discharge Date Admission Date: December 18, 2021 Subjective Patient seen on daily rounds this morning. She is resting comfortably in bed and reports that her back pain is dramatically improved from earlier this morning. Appears that as a miscommunication the Dilaudid that was supposed to be ordered was not and subsequently RN alerted me that pt was c/o severe low back pain and was tearful. She was c/o urinary incontinence (not stress- induced), no bowel incontinence, denies saddle anesthesias. No cp or dyspnea. Pain radiates down her L leg and into her big toe. RN alerted me this afternoon that she is also requesting oral Ativan. Review of Systems Review of Systems: The patient denies chest pain, palpitations, shortness of breath, dyspnea on exertion, cough, lower extremity swelling, sore throat, fevers, chills, sweats, weight change, fatigue, diarrhea , constipation, abdominal pain, pelvic pain, blood in urine or stool, dysuria, urinary frequency or urgency, lightheadedness, dizziness, headache, memory loss, loss of consciousness, rash, abnormal bruising or bleeding, imbalance, focal or generalized weakness, numbness or tingling in arms or right leg, generalized arthralgias or myalgias, or night sweats. The review of systems is otherwise negative other than for that already noted above, and at least 10 systems have been reviewed. Physical Exam Physical Exam: GENERAL: 26 yo well-developed, well-nourished. NAD. LUNGS: Clear to auscultation bilaterally. No accessory muscle use. No W/R/R. CARDIOVASCULAR: Regular rate and rhythm. No M/G/R. ABDOMEN: Soft, non-tender and non-distended. BS normal x 4 quad. EXTREMITIES: No edema. Non-tender. Peripheral pulses +2/4. NEUROLOGIC: A&O x3. No focal neurological deficits. M/S: tenderness of L spine and c spine processes. PSYCHIATRIC: Cooperative. Appropriate mood and affect. SKIN: Warm, dry, intact. No rashes or lesions. Results & Data Results & Data ([facility]) Vital Signs (Past 12 Hours) Vital Signs Temp Pulse Resp BP Pulse Ox 12/18/21 07:55 36.8 C 87 18 118/78 97 Laboratory Results 12/17/21 20:30 12/17/21 20:30 Diagnostic Findings Cervical Spine MRI 12/17/21 19:49 MR OF THE CERVICAL SPINE WITHOUT IV CONTRAST CLINICAL HISTORY: neck pain, loss bladder control TECHNIQUE: MRI of the cervical spine is performed utilizing various T1 and T2 sequences in the axial and sagittal planes. IV contrast was not administered for this examination. Comparison: Comparison is made to MRI cervical spine 09/21/2031 FINDINGS: Cervical spine: Vertebral body height and alignment are maintained throughout the cervical spine. The atlantodental articulation appears maintained. No destructive bony lesion is seen. Intervertebral discs: Disks are normal in height and signal. Spinal cord: The cervical spinal cord is normal in morphology and signal intensity. C2-C3: Unremarkable. C3-C4: Unremarkable. C4-C5: Unremarkable. C5-C6: Left greater than right posterior disc bulge is seen. There is mild canal stenosis and left neural foraminal stenosis. C6-C7: Broad-based posterior disc protrusion with mild canal stenosis and no significant neuroforaminal stenosis. C7-T1: Unremarkable. Soft tissues: Unremarkable. Brain parenchyma: Partially imaged brain parenchyma at the skull base is within normal limits. IMPRESSION: Essentially unchanged appearance of posterior disc bulges at C5-C6 and C6-C7 with mild canal stenosis and left neuroforaminal stenosis. ACT 112: Negative or not required by law. Electronically signed by: Mati Sandoval M.D. 12/17/2021 11:01 PM Lumbar Spine MRI 12/17/21 19:49 MR lumbar spine wo con CLINICAL HISTORY: low back pain, left sciatica, loss bladder control. COMPARISON: 09/21/2021 TECHNIQUE: Multiplanar multisequence images of the Lumbar Spine were performed without contrast. FINDINGS: There is no evidence for vertebral body fracture. The heights of the vertebral bodies are maintained. The vertebral bodies are in anatomic alignment. Homogeneous marrow signal is seen without evidence for marrow edema or marrow replacement. T12-L1: The disc space height is maintained. There are no focal disc protrusions or extrusions identified. The thecal sac and epidural fat are maintained. The neural foramen are patent bilaterally. There is no evidence for nerve root encroachment. The facet joints are within normal limits. L1-2: The disc space height is maintained. There are no focal disc protrusions or extrusions identified. The thecal sac and epidural fat are maintained. The neural foramen are patent bilaterally. There is no evidence for nerve root encroachment. The facet joints are within normal limits. L2-3: The disc space height is maintained. There are no focal disc protrusions or extrusions identified. The thecal sac and epidural fat are maintained. The neural foramen are patent bilaterally. There is no evidence for nerve root encroachment. The facet joints are within normal limits. L3-4: The disc space height is maintained. There are no focal disc protrusions or extrusions identified. The thecal sac and epidural fat are maintained. The neural foramen are patent bilaterally. There is no evidence for nerve root encroachment. The facet joints are within normal limits. L4-5: The disc space height is maintained. There are no focal disc protrusions or extrusions identified. The thecal sac and epidural fat are maintained. The neural foramen are patent bilaterally. There is no evidence for nerve root encroachment. The facet joints are within normal limits. L5-S1: Compared to the previous examination, there is again mild disc space narrowing and disc desiccation there has been interval development of a small central to left paracentral disc protrusion/herniation measuring approximately 4 mm. Due to the increase amount of epidural fat anterior to the thecal sac at this level, no encroachment upon the thecal sac is seen. However, there is impingement upon the left S1 nerve root as it enters the lateral recess. No swelling of the nerve root is seen. The remaining nerve roots appear normal. No foraminal encroachment is seen. The facet joints are within normal limits. IMPRESSION: 1. Compared to the previous examination, there has been slight interval enlargement of small central to left paracentral disc protrusion/herniation at L5-S1. This abuts the left S1 nerve root without definite compression or swelling of the nerve root. ACT 112: Negative or not required by law. Electronically signed by: Bertrand Zee M.D. 12/18/2021 9:[address] 12/18/21 11:57 CT lumbar spine wo con CLINICAL HISTORY: back and leg pain COMPARISON STUDY: MR lumbar spine from 12/17/2021 CT DOSE: 717.10 mGy.cm TECHNIQUE: Standard CT of the Lumbar Spine was performed without IV contrast. A dose lowering technique was utilized adhering to the principles of ALARA. FINDINGS: Bones: There is no evidence for an acute fracture or malalignment. The heights of the vertebral bodies are maintained. The vertebral bodies are in anatomic alignment. Disc spaces: There is again mild disc space narrowing at L5-S1 with a small c entral to left paracentral disc protrusion/herniation also again seen. Facet joints: Mild hypertrophic facet joint disease is present L5-S1. The sacroiliac joints are intact bilaterally. Soft tissues: The prevertebral soft tissues are within normal limits. IMPRESSION: 1. Mild disc space narrowing with small central to left paracentral disc protrusion/herniation is again seen at L5-S1. 2. Mild hypertrophic facet joint disease is also seen at L5-S1. ACT 112: Negative or not required by law. Electronically signed by: Bertrand Zee M.D. 12/18/2021 12:47 PM Lumbar Spine X-Ray 12/18/21 11:57 XR lumbar spine 6V w bending CLINICAL HISTORY: back and leg pain. COMPARISON STUDY: 03/29/2021 TECHNIQUE: 5 Views of the lumbar spine FINDINGS: Bones: There is no evidence for fracture or malalignment. The heights of the vertebral bodies are maintained. There are no lytic or blastic lesions present. Disc spaces: There is mild disc space narrowing at L5-S1. Facet joints: Mild hypertrophic facet joint disease is also again seen at L5-S1. Soft tissues: The paraspinal soft tissues are within normal limits. IMPRESSION: 1. No acute abnormality. 2. Degenerative disc and degenerative facet joint disease are again seen at L5- S1. ACT 112: Negative or not required by law. Electronically signed by: Bertrand Zee M.D. 12/18/2021 12:44 PM PG Care Time/CCT Total # of Minutes Spent Total Time Spent with Patient: Total time spent is greater than 50% in coordination of care (as documented) at patient's floor/unit and/or counseling patient: Coding Level of Care Code 74725 Subseq Obs Care Lvl 2 Diagnoses Lumbar radiculopathy M54.16 Neck pain M54.2 Cervical paraspinal muscle spasm M62.838 Lumbar paraspinal muscle spasm M62.830 Thoracic back pain M54.6 MARCOS (generalized anxiety disorder) F41.1 Nausea R11.0
[2021-12-18] MEDS ORDERED: CITALOPRAM 20 MG TAB PO SCH (21:00)
[2021-12-19] MEDS: dexAMETHasone 4 MG in SYRINGE 0 ML IV SCH ×2 (00:51→08:38)
[2021-12-19] MEDS: HYDROmorphone INJ 1 MG/ML SYRINGE IV PRN ×4 (00:51→13:10)
[2021-12-19] MEDS ORDERED: KETOROLAC 30 MG/ML VIAL IV PRN (08:25)
[2021-12-19] MEDS: DICLOFENAC SODIUM 75 MG TABCR PO SCH (08:39)
[2021-12-19] MEDS: BACLOFEN 10 MG TAB PO SCH ×3 (08:40→20:11)
[2021-12-19] MEDS: buPROPion XL 150 MG TABCR PO SCH (08:40)
[2021-12-19] MEDS: DULoxetine HCL 30 MG CAP PO SCH (08:40)
--- NOTE | 2021-12-19 08:42 | Pain Management Consultation ---
Date of Consultation December 19, 2021 Assessment & Plan (1) Lumbar paraspinal muscle spasm: (2) Thoracic back pain: (3) MARCOS (generalized anxiety disorder): (4) Depression: (5) Lumbar radiculopathy: 1. Predominant pain generator complaint is associated with paravertebral pain extending from the cervical to the lumbar region predominantly in the mid thoracic the lumbar region consistent with paraspinal muscular pain complaint. Patient does have some radicular paresthesia in the left S1 distribution but this is minimal with regards to her overall pain burden per her report. 2. Will add gabapentin 300 mg nightly x1 day then twice daily x1 day then 3 times daily 3. Recommend Toradol 30 mg IM every 6 hours for as needed breakthrough pain. She was encouraged utilize Toradol in place of hydromorphone and reserve hydromorphone for more significant pain. 4. Would not recommend repeat YOLY at this time as her lumbar radicular pain complaints are minimal with predominant complaint of paresthesia only in the left S1 distribution. 5. Will request thoracic spine series x-rays. History of Present Illness Reason for Consultation: Intractable back pain Requesting Physician: Jamie Pappas MD Attending Physician: Emory Blum History of Present Illness Mrs. Milian is a 26-year-old white female who was admitted due to complaints of intractable back pain with left lower extremity paresthesia complaint. Patient has history of chronic back pain which has been increased over the past few months. She reports increase in pain was a byproduct of chiropractic manipulation. Her predominant pain generator is axial back pain extending from the mid thoracic through the lumbosacral region. She denies any significant left lower extremity radicular pain but does describe some paresthesia traveling in a predominant S1 distribution to the foot. Patient also has some axial neck pain but denies cervical radicular component to her pain complaints. She manjit cribes the pain as a pressure and spasm in characteristic ranging between a 2- 8/10. She denies it the pain travels along the posterior lateral chest wall. She has previously experienced some increased pain with deep breathing. The patient did previously undergo an epidural steroid injection on 10/25/2021 with an L5-S1 interlaminar YOLY patient reported improvement in complaints for 3 weeks with gradual symptom recurrence. The patient also underwent some cervical region trigger point injections performed in 11/23/2021 which she reported failed provide any benefit in her current pain complaints. Patient is indicating the Dilaudid is "keeping her pain manageable". She does not feel that any of the other medications have been helpful at diminishing the severity of her pain. She reportedly trialed physical therapy in the outpatient setting which "made her pain worse". The patient denies any bowel or bladder incontinence or saddle anesthesia. She has undergone updated imaging upon this admission which failed to reveal any significant change. Patient has no further constitutional comp laints. Plan of care discussed with Dr. Daniels. Pain Assessment Full Body Front + Back: 1. Axial back pain-paravertebral bilateral and equal 2. S1 radicular paresthesia Allergies Allergy/AdvReac Type Severity Reaction Status Date / Time No Known Allergies Allergy Verified 12/15/21 13:25 Home Medications Medication Instructions Recorded Confirmed Type hydroxyzine pamoate 25 mg capsule 25 mg PO DAILY PRN 03/08/21 12/17/21 History (Vistaril) bupropion HCl 150 mg 24 hr tablet, 150 mg PO QAM 05/27/21 12/17/21 History extended release (Wellbutrin XL) metoclopramide HCl 10 mg tablet 10 mg PO Q8H PRN #12 tab 08/15/21 12/17/21 Rx (Reglan) diclofenac sodium 75 mg 75 mg PO BID #30 tab 10/18/21 12/17/21 Rx tablet,delayed release baclofen 10 mg tablet 10 mg PO TID #30 tab 11/28/21 12/17/21 Rx citalopram 40 mg tablet 20 mg PO HS tab 12/15/21 12/17/21 History desogestrel 0.15 mg-ethinyl 1 tab PO DAILY 12/17/21 12/17/21 History estradiol 0.03 mg tablet (Apri) Patient History Medical History Anxiety Depression GERD (gastroesophageal reflux disease) On occasions Hyperthyroidism Not on any medication Low TSH level Migraine Neck pain Ovarian cyst Pyelonephritis Ureteral calculus, left Vitamin D deficiency Surgical History Nasal fracture Repair of nasal fracture S/P cystoscopy with ureteral stent placement 12/05/20 Dr. Lamont Ambrose- Cystoscopy, Left ureteroscopy, Laser lithotripsy, Stone basket extraction of stone, Left retrograde pyelogram, Left ureteral stent placement Family History Mother Breast cancer Other Cancer Hypertension Kidney stones Denies family history of Ovarian cancer Prostate cancer Heart disease Myocardial infarction Colorectal cancer Social History (Updated 12/15/21 @ 13:48 by Gabi Gloria RN) Smoking Status: Never smoker Second Hand Exposure: No; Do You Dip or Chew Tobacco: No; Tobacco Cessation Education Requested by Patient: No Hx Alcohol Use: Yes Alcohol type: hard liquor Hx Substance Use: No Preferred Language: Irish Communication Ability: Effective Visual Impairment: No Limitations Hearing Ability: Normal Supervisor Laboratory Required: No Beliefs That Will Affect Care: None marital status: Single Current Living Situation: Parent Current Living Situation Comment: Live with parents and child. 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 Speech and thought process appropriate. Patient appears moderately anxious. Cognition intact. Head: Normocephalic and atraumatic. ENT: No evidence of nasal or oral mucosal lesions. Mucous membranes are moist. Eyes: Pupils equal round reactive to light. Neck: Supple without adenopathy and full range of motion. Minimal tenderness in the paravertebral and trapezius musculature. No definable spasm or myoneural trigger points. Spurling's maneuver negative bilaterally. Thoracic spine: Patient diffusely tender in the paravertebral musculature with slightly hyperalgesic response. No focal midline or facet joint tenderness appreciated. Chest: Nontender to palpation of the costosternal junction. Minimally tender with lateral compression of the chest wall. Back/spine: Slight loss of lordosis. Some generalized paravertebral tenderness to palpation. No focal facet or SI joint tenderness to provocative testing. Lower extremities: SLR negative bilaterally with increased axial low back pain complaint. Strength testing 5/5 EHL testing, dorsi and plantar flexion. Sensation intact without deficit. Neurologic: Cranial nerves grossly intact. Ambulatory function not witnessed. Results (Pain Clinic) Diagnostic Review MRI Findings: [facility], [place] [phone] Magnetic Resonance Report Patient:MARCELA MILIAN Admit Date:12/18/21 MR#:[id number] Address1:[address] Acct ID:[id number] Address2: Date:1995 [place] Zip:[place] [id number] Age:26 Location:3W Sex:F Room/Bed:[facility] Att Phy:Emory Blum M.D. Diagnosis:INTRACTABLE BACK PAIN Reema Phy:Luisa Roldan MD Service Date:12/17/21 Fam Phy: Interpreting Phy:Bertrand Zee MDAdmit Phy:Jamie Pappas M.D. Ordering Phy:Rey Noel M.D. cc: ~ MR lumbar spine wo con CLINICAL HISTORY: low back pain, left sciatica, loss bladder control. COMPARISON: 09/21/2021 TECHNIQUE: Multiplanar multisequence images of the Lumbar Spine were performed without contrast. FINDINGS: There is no evidence for vertebral body fracture. The heights of the vertebral bodies are maintained. The vertebral bodies are in anatomic alignment. Homogeneous marrow signal is seen without evidence for marrow edema or marrow replacement. T12-L1: The disc space height is maintained. There are no focal disc protrusions or extrusions identified. The thecal sac and epidural fat are maintained. The neural foramen are patent bilaterally. There is no evidence for nerve root encroachment. The facet joints are within normal limits. L1-2: The disc space height is maintained. There are no focal disc protrusions or extrusions identified. The thecal sac and epidural fat are maintained. The neural foramen are patent bilaterally. There is no evidence for nerve root encroachment. The facet joints are within normal limits. L2-3: The disc space height is maintained. There are no focal disc protrusions or extrusions identified. The thecal sac and epidural fat are maintained. The neural foramen are patent bilaterally. There is no evidence for nerve root encroachment. The facet joints are within normal limits. L3-4: The disc space height is maintained. There are no focal disc protrusions or extrusions identified. The thecal sac and epidural fat are maintained. The neural foramen are patent bilaterally. There is no evidence for nerve root encroachment. The facet joints are within normal limits. L4-5: The disc space height is maintained. There are no focal disc protrusions or extrusions identified. The thecal sac and epidural fat are maintained. The neural foramen are patent bilaterally. There is no evidence for nerve root encroachment. The facet joints are within normal limits. L5-S1: Compared to the previous examination, there is again mild disc space narrowing and disc desiccation there has been interval development of a small central to left paracentral disc protrusion/herniation measuring approximately 4 mm. Due to the increase amount of epidural fat anterior to the thecal sac at this level, no encroachment upon the thecal sac is seen. However, there is imp ingement upon the left S1 nerve root as it enters the lateral recess. No swelling of the nerve root is seen. The remaining nerve roots appear normal. No foraminal encroachment is seen. The facet joints are within normal limits. IMPRESSION: 1. Compared to the previous examination, there has been slight interval enlargement of small central to left paracentral disc protrusion/herniation at L5-S1. This abuts the left S1 nerve root without definite compression or swelling of the nerve root. ACT 112: Negative or not required by law. Electronically signed by: Bertrand Zee M.D. 12/18/2021 9:19 AM Dictated:12/18/21912 Transcribed: 12/18/21912 [place], [place] [phone] Magnetic Resonance Report Patient:MARCELA MILIAN Admit Date:12/17/21 MR#:[id number] Address1:[address] [place] [address] Acct ID:[id number] Address2: Date:1995 [place] [facility] [id number] Age:26 Location:ED Sex:F Room/Bed: Att Phy: Diagnosis:PAIN FROM NECK DOWN SPINE,UNBEARABLE Reema Phy:Luisa Roldan MD Service Date:12/17/21 [facility] Phy: Interpreting Phy:Mati Sandoval MDAit Phy: Ordering Phy:Rey Noel M.D. cc: ~ MR OF THE CERVICAL SPINE WITHOUT IV CONTRAST CLINICAL HISTORY: neck pain, loss bladder control TECHNIQUE: MRI of the cervical spine is performed utilizing various T1 and T2 sequences in the axial and sagittal planes. IV contrast was not administered for this examination. Comparison: Comparison is made to MRI cervical spine 09/21/2031 FINDINGS: Cervical spine: Vertebral body height and alignment are maintained throughout the cervical spine. The atlantodental articulation appears maintained. No destructive bony lesion is seen. Intervertebral discs: Disks are normal in height and signal. Spinal cord: The cervical spinal cord is normal in morphology and signal intensity. C2-C3: Unremarkable. C3-C4: Unremarkable. C4-C5: Unremarkable. C5-C6: Left greater than right posterior disc bulge is seen. There is mild canal stenosis and left neural foraminal stenosis. C6-C7: Broad-based posterior disc protrusion with mild canal stenosis and no significant neuroforaminal stenosis. C7-T1: Unremarkable. Soft tissues: Unremarkable. Brain parenchyma: Partially imaged brain parenchyma at the skull base is within normal limits. IMPRESSION: Essentially unchanged appearance of posterior disc bulges at C5-C6 and C6-C7 with mild canal stenosis and left neuroforaminal stenosis. ACT 112: Negative or not required by law. Electronically signed by: Mati Sandoval M.D. 12/17/2021 11:01 PM Dictated:12/17/212256 Transcribed: 12/17/212256 CT Findings: [place], [place] [phone] CT Scan Report Patient:MARCELA MILIAN Admit Date:12/18/21 MR#:[id number] Address1:[address] [place] [address] Acct ID:[id number] Address2: Date:1995 [place] Zip:[place] [address] Age:26 Location:3W Sex:F Room/Bed:[facility] Att Phy:Emory Blum M.D. Diagnosis:INTRACTABLE BACK PAIN Reema Phy:Luisa Roldan MD Service Date:12/18/21 Fam Phy: Interpreting Phy:Bertrand Zee [facility] Phy:Jamie Pappas M.D. Ordering Phy:Tashi Bennett D.O. cc: ~ CT lumbar spine wo con CLINICAL HISTORY: back and leg pain COMPARISON STUDY: MR lumbar spine from 12/17/2021 CT DOSE: 717.10 mGy.cm TECHNIQUE: Standard CT of the Lumbar Spine was performed without IV contrast. A dose lowering technique was utilized adhering to the principles of ALARA. FINDINGS: Bones: There is no evidence for an acute fracture or malalignment. The heights of the vertebral bodies are maintained. The vertebral bodies are in anatomic alignment. Disc spaces: There is again mild disc space narrowing at L5-S1 with a small central to left paracentral disc protrusion/herniation also again seen. Facet joints: Mild hypertrophic facet joint disease is present L5-S1. The sacroiliac joints are intact bilaterally. Soft tissues: The prevertebral soft tissues are within normal limits. IMPRESSION: 1. Mild disc space narrowing with small central to left paracentral disc protrusion/herniation is again seen at L5-S1. 2. Mild hypertrophic facet joint disease is also seen at L5-S1. ACT 112: Negative or not required by law. Electronically signed by: Bertrand Zee M.D. 12/18/2021 12:47 PM Dictated:12/18/21 1244 Transcribed: 12/18/21 1244 Radiology Findings: [facility], [place] [phone] XRay Report Patient:MARCELA MILIAN Admit Date:12/18/21 MR#:[id number] Address1:[address] [place] [address] Acct ID:[id number] Address2: Date:1995 [place] Zip:[place] [address] Age:26 Location:3W Sex:F Room/Bed:[facility] Att Phy:Emory Blum M.D. Diagnosis:INTRACTABLE BACK PAIN Reema Phy:Luisa Roldan MD Service Date:12/18/21 Fam Phy: Interpreting Phy:Bertrand Zee [facility] Phy:Jamie Pappas M.D. Ordering Phy:Tashi Bennett D.O. cc: ~ XR lumbar spine 6V w bending CLINICAL HISTORY: back and leg pain. COMPARISON STUDY: 03/29/2021 TECHNIQUE: 5 Views of the lumbar spine FINDINGS: Bones: There is no evidence for fracture or malalignment. The heights of the vertebral bodies are maintained. There are no lytic or blastic lesions present. Disc spaces: There is mild disc space narrowing at L5-S1. Facet joints: Mild hypertrophic facet joint disease is also again seen at L5-S1. Soft tissues: The paraspinal soft tissues are within normal limits. IMPRESSION: 1. No acute abnormality. 2. Degenerative disc and degenerative facet joint disease are again seen at L5- S1. ACT 112: Negative or not required by law. Electronically signed by: Bertrand Zee M.D. 12/18/2021 12:44 PM Dictated:12/18/21 1242 Transcribed: 12/18/21 1242
--- NOTE | 2021-12-19 09:48 | XRay Report ---
THORACIC SPINE 3 VIEWS HISTORY: thoracic back pain COMPARISON: Thoracic spine 01/15/2021. FINDINGS: There is no fracture. No subluxation. Minimal dextroscoliosis of the thoracic spine, uncha nged. Paraspinal soft tissues are unremarkable. Minimal degenerative change again noted within the th oracic spine. IMPRESSION: No fracture or subluxation within the thoracic spine. ACT 112: Negative or not required by law. Electronically signed by: Triston Castillo M.D. 12/19/2021 9:46 AM
[2021-12-19] MEDS: ACETAMINOPHEN 325 MG TAB PO PRN (11:59)
[2021-12-19] MEDS: DOCUSATE SODIUM 100 MG CAP PO SCH ×2 (12:00→20:11)
--- NOTE | 2021-12-19 15:32 | Hospitalist Progress Note ---
Date of Service December 19, 2021 Assessment & Plan (1) Lumbar radiculopathy: Plan: Left lower extremity radiculopathy/neck pain/Thoracics pain/cervical paraspinal muscle spasm/lumbar paraspinal muscle spasm- Patient has received multiple medications in the emergency department including Dilaudid 1 mg IV x2, lorazepam 1 mg IV x2, fentanyl citrate 75 mcg IV, Toradol 15 mg IV, Benadryl 25 mg IV and dexamethasone 10 mg IV. All without any change in her reported pain. Plan: Baclofen 10 mg p.o. 3 times daily as needed muscle spasm Acetaminophen 650 mg p.o. every 6 hours as needed mild pain or fever K pad to affected area Pain management consulted, seen this AM by ANDREW, he advised starting Gabapentin and Toradol Dr. Bennett, orthospine, consultedappreciate recommendations, does not recommend surgery at this time as her L5-S1 disease is mild Adjust pain medications as follows: Toradol 30 mg IV every 6 hours for moderate pain 4-6, adjust Dilaudid to 0.5 mg IV every 4 hours as needed pain scale 710 Discontinue Decadron and diclofenac as neither seem to be providing any relief As indicated below I have started her on Cymbalta 30 mg daily to help with neuropathic pain, this can be uptitrated but would not do so yet as it will take time to become effective (2) Neck pain: Plan: See above (3) Cervical paraspinal muscle spasm: Plan: See above (4) Lumbar paraspinal muscle spasm: Plan: See above (5) Thoracic back pain: Plan: See above (6) MARCOS (generalized anxiety disorder): Plan: Continue bupropion and hydroxyzine States she does not take Celexa that is prescribed to her Trial of Cymbalta 30mg daily as it may provide additional neuropathic pain relief Discussed with RN that I will not be ordering oral Ativan on this patient given the amount of narcotics that she is receiving for her back pain, additionally she is not on this medication at home (7) Nausea: Plan: Zofran 4 mg IV every 6 hours as needed nausea or vomiting Plan: Discussed case with Dr. Bennett who does not feel that patient is a candidate for surgery at this time as her disc disease is very mild and she is so young. Reviewed pain management consult note, adjustment in regimen as noted above. Perhaps consideration of another epidural steroid injection in the near future. Ultimately, will plan to discharge patient home in the next 24 hours and she can follow up with subspecialists as an outpatient Admission and Anticipated Discharge Date Admission Date: December 18, 2021 Subjective Patient seen on daily rounds this morning. She appears comfortable but continues to c/o uncontrolled back pain. Pain starts in her neck and radiates down to her lumbar spine and then into her L buttocks and into her L big toe. Review of Systems Review of Systems: The patient denies chest pain, palpitations, shortness of breath, dyspnea on exertion, cough, lower extremity swelling, sore throat, fevers, chills, sweats, weight change, fatigue, diarrhea , constipation, abdominal pain, pelvic pain, blood in urine or stool, dysuria, urinary frequency or urgency, lightheadedness, dizziness, headache, memory loss, loss of consciousness, rash, abnormal bruising or bleeding, imbalance, focal or generalized weakness, numbness or tingling in arms or right leg, generalized arthralgias or myalgias, or night sweats. The review of systems is otherwise negative other than for that already noted above, and at least 10 systems have been reviewed. Physical Exam Physical Exam: GENERAL: 26 yo well-developed, well-nourished. NAD. LUNGS: Clear to auscultation bilaterally. No accessory muscle use. No W/R/R. CARDIOVASCULAR: Regular rate and rhythm. No M/G/R. ABDOMEN: Soft, non-tender and non-distended. BS normal x 4 quad. EXTREMITIES: No edema. Non-tender. Peripheral pulses +2/4. NEUROLOGIC: A&O x3. No focal neurological deficits. M/S: tenderness of L spine and c spine processes. PSYCHIATRIC: Cooperative. Appropriate mood and affect. SKIN: Warm, dry, intact. No rashes or lesions. Results & Data Results & Data ([facility]) Vital Signs (Past 12 Hours) Vital Signs Temp Pulse Resp BP Pulse Ox 12/19/21 08:16 36.8 C 102 H 16 133/85 95 12/19/21 07:00 95 Laboratory Results no labs Diagnostic Findings CT lumbar spine wo con CLINICAL HISTORY: back and leg pain COMPARISON STUDY: MR lumbar spine from 12/17/2021 CT DOSE: 717.10 mGy.cm TECHNIQUE: Standard CT of the Lumbar Spine was performed without IV contrast. A dose lowering technique was utilized adhering to the principles of ALARA. FINDINGS: Bones: There is no evidence for an acute fracture or malalignment. The heights of the vertebral bodies are maintained. The vertebral bodies are in anatomic alignment. Disc spaces: There is again mild disc space narrowing at L5-S1 with a small central to left paracentral disc protrusion/herniation also again seen. Facet joints: Mild hypertrophic facet joint disease is present L5-S1. The sacroiliac joints are intact bilaterally. Soft tissues: The prevertebral soft tissues are within normal limits. IMPRESSION: 1. Mild disc space narrowing with small central to left paracentral disc protrusion/herniation is again seen at L5-S1. 2. Mild hypertrophic facet joint disease is also seen at L5-S1. ACT 112: Negative or not required by law. Electronically signed by: Bertrand Zee M.D. 12/18/2021 12:47 PM Thoracic Spine X-Ray 12/19/21 08:23 THORACIC SPINE 3 VIEWS HISTORY: thoracic back pain COMPARISON: Thoracic spine 01/15/2021. FINDINGS: There is no fracture. No subluxation. Minimal dextroscoliosis of the thoracic spine, unchanged. Paraspinal soft tissues are unremarkable. Minimal degenerative change again noted within the thoracic spine. IMPRESSION: No fracture or subluxation within the thoracic spine. ACT 112: Negative or not required by law. Electronically signed by: Triston Castillo M.D. 12/19/2021 9:46 AM PG Care Time/CCT Total # of Minutes Spent Total Time Spent with Patient: Total time spent is greater than 50% in coordination of care (as documented) at patient's floor/unit and/or counseling patient: Coding Level of Care Code 47609 Subseq Obs Care Lvl 2 Diagnoses Lumbar radiculopathy M54.16 Neck pain M54.2 Cervical paraspinal muscle spasm M62.838 Lumbar paraspinal muscle spasm M62.830 Thoracic back pain M54.6 MARCOS (generalized anxiety disorder) F41.1 Nausea R11.0
--- NOTE | 2021-12-19 16:15 | Orthopedic Progress Note ---
Date of Service December 19, 2021 Assessment & Plan (1) Lumbar radiculopathy: Plan: I did have the opportunity to review her CAT scan and x-rays. She demonstrates no gross instability. CAT scan demonstrates no significant vacuum phenomenon moderate degenerative change. Plan at this time would not recommend any surgical invention in light of her current imaging and presentation. She will continue with pain management at this time. Admission and Anticipated Discharge Date Admission Date: December 18, 2021 Subjective Patient states she is not significantly improved from her status yesterday. She still has thoracic back pain lumbar back pain and left leg pain. She has been ambulating the halls periodically. Physical Exam Physical Exam: On exam she does appear relatively comfortable. She does not have any gross strength deficits. Results & Data ([facility]) Vital Signs (Past 12 Hours) Vital Signs Temp Pulse Resp BP Pulse Ox 12/19/21 15:48 36.7 C 90 16 144/83 H 91 12/19/21 08:16 36.8 C 102 H 16 133/85 95 12/19/21 07:00 95
[2021-12-19] MEDS: HYDROmorphone INJ 0.5 MG/0.5 ML SYR IV PRN ×2 (17:17→20:55)
[2021-12-19] MEDS: KETOROLAC 30 MG/ML VIAL IV PRN (18:11)
[2021-12-19] MEDS: GABAPENTIN 300 MG CAP PO SCH (20:12)
[2021-12-20] MEDS: HYDROmorphone INJ 0.5 MG/0.5 ML SYR IV PRN ×2 (05:25→09:35)
[2021-12-20] MEDS: KETOROLAC 30 MG/ML VIAL IV PRN ×2 (06:07→14:49)
[2021-12-20] MEDS: ACETAMINOPHEN 325 MG TAB PO PRN (07:52)
[2021-12-20] MEDS: BACLOFEN 10 MG TAB PO SCH ×2 (08:30→13:53)
[2021-12-20] MEDS: DULoxetine HCL 30 MG CAP PO SCH (08:30)
[2021-12-20] MEDS: DOCUSATE SODIUM 100 MG CAP PO SCH (08:30)
[2021-12-20] MEDS: buPROPion XL 150 MG TABCR PO SCH (08:30)
[2021-12-20] MEDS: GABAPENTIN 300 MG CAP PO SCH (08:30)
--- NOTE | 2021-12-20 08:52 | Pain Management Progress Note ---
Date of Service December 20, 2021 Assessment & Plan (1) Sacroiliac joint pain: (2) Lumbar paraspinal muscle spasm: (3) Thoracic back pain: (4) MARCOS (generalized anxiety disorder): (5) Depression: (6) Lumbar radiculopathy: Plan: 1. Predominant pain generator complaint remains associated with paravertebral pain extending from the cervical to the lumbar region predominantly in the mid thoracic the lumbar region consistent with paraspinal muscular pain complaint. Patient also appears to have some focal pain over the left SI joint on today's physical exam. We discussed pursuing left SI joint injection for diagnostic/therapeutic purposes which would be accomplished in the outpatient setting. Patient will decide if she wishes to pursue and will plan for schedul ing next week. 2. Thoracic x-rays were reviewed which were within normal limits and only minimal degenerative change. 3. Maintain gabapentin titration. 4. Continue with Toradol 30 mg IM every 6 hours for as needed breakthrough pain. She was again encouraged utilize Toradol in place of hydromorphone and reserve hydromorphone for more significant pain. 5. Will request labs to include DELGADO, Lyme antibody, sed rate, CRP and vitamin D 25 OH level due to her diffuse myofascial pain complaints Admission and Anticipated Discharge Date Admission Date: December 18, 2021 Subjective Mrs. Milian is a 26-year-old white female who continues with complaints of axial back pain which she reports extends from the neck through the buttock predominantly left-sided and occasionally to the left posterior leg. Her predominant pain generator remains the axial thoracolumbar and lumbosacral spinal regions predominantly left-sided. She describes the pain as an intense pressure and grabbing sensation. She reports minimal improvement compared to yesterday and the frequency and/or severity of her pain. Her pain is fairly constant with minimal change based on activity levels. She is finding Toradol to be moderately helpful. She tolerated gabapentin last evening without notable side effect. Patient is rating her pain a 7-9/10 although appears to be in no acute distress upon entering the room. Patient denies bowel or bladder incontinence or saddle anesthesia. Patient has no further constitutional complaints. Patient was seen and examined along with Dr. Daniels. Pain Assessment Pain Assessment Full Body Front + Back: 1. Axial back pain extending from the cervical through the thoracolumbar junction 2. Left greater than right lumbosacral pain 3. Left lower extremity pain/paresthesia Pain scale - at its best (0-10): 7 Pain scale - at its worst (0-10): 9 Physical Exam Physical Exam: General: Patient sitting up moving around freely in the bed in no acute distress. Speech and thought process appropriate. Patient appears moderately anxious. Cognition intact. Thoracic spine: Patient diffusely tender in the paravertebral musculature with slightly hyperalgesic response. No focal midline or facet joint tenderness appreciated. Chest: Nontender to palpation of the costosternal junction. Minimally tender with lateral compression of the chest wall. Back/spine: Slight loss of lordosis. Some generalized paravertebral tenderness to palpation. No focal facet joint tenderness to provocative testing. Patient is moderately tender over the left SI joint with compared to the right to provocative testing. Lower extremities: SLR negative bilaterally with increased axial low back pain complaint. Strength testing 5/5 EHL testing, dorsi and plantar flexion. Sensation intact without deficit. FLORENTIN maneuver positive on the left and negative on the right. Thigh thrust test positive on the left negative on the right. Neurologic: Cranial nerves grossly intact. Ambulatory function not witnessed. Results (Pain Clinic) Diagnostic Review Radiology Findings: [facility], [place] [phone] XRay Report Patient:MARCELA MILIAN Admit Date:12/18/21 MR#:[id number] Address1:[address] [place] [address] Acct ID:[id number] Address2: Date:1995 [facility] Zip:[place] [address] Age:26 Location:3W Sex:F Room/Bed:[facility] Att Phy:Emory Blum M.D. Diagnosis:INTRACTABLE BACK PAIN Reema Phy:Luisa Roldan MD Service Date:12/19/21 Fam Phy: Interpreting Phy:Triston Castillo MDAdmit Phy:Jamie Pappas M.D. Ordering Phy:Dalton Mancini PA-C cc: ~ THORACIC SPINE 3 VIEWS HISTORY: thoracic back pain COMPARISON: Thoracic spine 01/15/2021. FINDINGS: There is no fracture. No subluxation. Minimal dextroscoliosis of the thoracic spine, unchanged. Paraspinal soft tissues are unremarkable. Minimal degenerative change again noted within the thoracic spine. IMPRESSION: No fracture or subluxation within the thoracic spine. ACT 112: Negative or not required by law. Electronically signed by: Triston Castillo M.D. 12/19/2021 9:46 AM Dictated:12/19/2145 Transcribed: 12/19/2145
[2021-12-20] MEDS ORDERED: oxyCODONE HCL IR 5 MG TAB (IMMEDIATE RELEASE) PO PRN ×2 (10:37)
[2021-12-20 10:56] LABS: Lyme Ab IgG w/WB Rflx Negative (Negative); Lyme Ab IgM w/WB Rflx Negative (Negative)
--- NOTE | 2021-12-20 11:52 | Discharge Summary ---
Date of Service December 20, 2021 Admission HPI Per Admitting Provider The patient is a 26-year-old female with a past medical history including chronic back pain, who presents to the emergency department with a worsening of her usual pain. She has had previous injections, most recently by Dr. Nava on 10/25/2021. She has received multiple medications in the emergency department including: Fentanyl, Dilaudid, dexamethasone, and Toradol without any change in her pain. She denies any recent trauma that may exacerbate her pain. Principal Diagnosis Intractable back pain w/ left leg radiculopathy Neck pain Discharge Exam GENERAL: 26 yo well-developed, well-nourished. NAD. LUNGS: Clear to auscultation bilaterally. No accessory muscle use. No W/R/R. CARDIOVASCULAR: Regular rate and rhythm. No M/G/R. ABDOMEN: Soft, non-tender and non-distended. BS normal x 4 quad. EXTREMITIES: No edema. Non-tender. Peripheral pulses +2/4. NEUROLOGIC: A&O x3. No focal neurological deficits. M/S: tenderness of L spine and c spine processes. PSYCHIATRIC: Cooperative. Appropriate mood and affect. SKIN: Warm, dry, intact. No rashes or lesions. Discharge Data Allergies Allergy/AdvReac Type Severity Reaction Status Date / Time No Known Allergies Allergy Verified 12/15/21 13:25 Consultations 1. Consult to pain management -- please see Dalton Bedoya PA-C consult note for further details 2. Consult to orthospine -- Dr. Bennett, please see his full consult note for further details Ordered Studies Cervical Spine MRI 12/17/21 19:49 MR OF THE CERVICAL SPINE WITHOUT IV CONTRAST CLINICAL HISTORY: neck pain, loss bladder control TECHNIQUE: MRI of the cervical spine is performed utilizing various T1 and T2 sequences in the axial and sagittal planes. IV contrast was not administered for this examination. Comparison: Comparison is made to MRI cervical spine 09/21/2031 FINDINGS: Cervical spine: Vertebral body height and alignment are maintained throughout the cervical spine. The atlantodental articulation appears maintained. No destructive bony lesion is seen. Intervertebral discs: Disks are normal in height and signal. Spinal cord: The cervical spinal cord is normal in morphology and signal intensity. C2-C3: Unremarkable. C3-C4: Unremarkable. C4-C5: Unremarkable. C5-C6: Left greater than right posterior disc bulge is seen. There is mild canal stenosis and left neural foraminal stenosis. C6-C7: Broad-based posterior disc protrusion with mild canal stenosis and no significant neuroforaminal stenosis. C7-T1: Unremarkable. Soft tissues: Unremarkable. Brain parenchyma: Partially imaged brain parenchyma at the skull base is within normal limits. IMPRESSION: Essentially unchanged appearance of posterior disc bulges at C5-C6 and C6-C7 with mild canal stenosis and left neuroforaminal stenosis. ACT 112: Negative or not required by law. Electronically signed by: Mait Sandoval M.D. 12/17/2021 11:01 PM Lumbar Spine MRI 12/17/21 19:49 MR lumbar spine wo con CLINICAL HISTORY: low back pain, left sciatica, loss bladder control. COMPARISON: 09/21/2021 TECHNIQUE: Multiplanar multisequence images of the Lumbar Spine were performed without contrast. FINDINGS: There is no evidence for vertebral body fracture. The heights of the vertebral bodies are maintained. The vertebral bodies are in anatomic alignment. Homogeneous marrow signal is seen without evidence for marrow edema or marrow replacement. T12-L1: The disc space height is maintained. There are no focal disc protrusions or extrusions identified. The thecal sac and epidural fat are maintained. The neural foramen are patent bilaterally. There is no evidence for nerve root encroachment. The facet joints are within normal limits. L1-2: The disc space height is maintained. There are no focal disc protrusions or extrusions identified. The thecal sac and epidural fat are maintained. The neural foramen are patent bilaterally. There is no evidence for nerve root encroachment. The facet joints are within normal limits. L2-3: The disc space height is maintained. There are no focal disc protrusions or extrusions identified. The thecal sac and epidural fat are maintained. The neural foramen are patent bilaterally. There is no evidence for nerve root encroachment. The facet joints are within normal limits. L3-4: The disc space height is maintained. There are no focal disc protrusions or extrusions identified. The thecal sac and epidural fat are maintained. The neural foramen are patent bilaterally. There is no evidence for nerve root encroachment. The facet joints are within normal limits. L4-5: The disc space height is maintained. There are no focal disc protrusions or extrusions identified. The thecal sac and epidural fat are maintained. The neural foramen are patent bilaterally. There is no evidence for nerve root encroachment. The facet joints are within normal limits. L5-S1: Compared to the previous examination, there is again mild disc space narrowing and disc desiccation there has been interval development of a small central to left paracentral disc protrusion/herniation measuring approximately 4 mm. Due to the increase amount of epidural fat anterior to the thecal sac at this level, no encroachment upon the thecal sac is seen. However, there is impingement upon the left S1 nerve root as it enters the lateral recess. No swelling of the nerve root is seen. The remaining nerve roots appear normal. No foraminal encroachment is seen. The facet joints are within normal limits. IMPRESSION: 1. Compared to the previous examination, there has been slight interval enlargement of small central to left paracentral disc protrusion/herniation at L5-S1. This abuts the left S1 nerve root without definite compression or swelling of the nerve root. ACT 112: Negative or not required by law. Electronically signed by: Bertrand Zee M.D. 12/18/2021 9:[address] 12/18/21 11:57 CT lumbar spine wo con CLINICAL HISTORY: back and leg pain COMPARISON STUDY: MR lumbar spine from 12/17/2021 CT DOSE: 717.10 mGy.cm TECHNIQUE: Standard CT of the Lumbar Spine was performed without IV contrast. A dose lowering technique was utilized adhering to the principles of ALARA. FINDINGS: Bones: There is no evidence for an acute fracture or malalignment. The heights of the vertebral bodies are maintained. The vertebral bodies are in anatomic alignment. Disc spaces: There is again mild disc space narrowing at L5-S1 with a small central to left paracentral disc protrusion/herniation also again seen. Facet joints: Mild hypertrophic facet joint disease is present L5-S1. The sacroiliac joints are intact bilaterally. Soft tissues: The prevertebral soft tissues are within normal limits. IMPRESSION: 1. Mild disc space narrowing with small central to left paracentral disc protrusion/herniation is again seen at L5-S1. 2. Mild hypertrophic facet joint disease is also seen at L5-S1. ACT 112: Negative or not required by law. Electronically signed by: Bertrand Zee M.D. 12/18/2021 12:47 PM Lumbar Spine X-Ray 12/18/21 11:57 XR lumbar spine 6V w bending CLINICAL HISTORY: back and leg pain. COMPARISON STUDY: 03/29/2021 TECHNIQUE: 5 Views of the lumbar spine FINDINGS: Bones: There is no evidence for fracture or malalignment. The heights of the vertebral bodies are maintained. There are no lytic or blastic lesions present. Disc spaces: There is mild disc space narrowing at L5-S1. Facet joints: Mild hypertrophic facet joint disease is also again seen at L5-S1. Soft tissues: The paraspinal soft tissues are within normal limits. IMPRESSION: 1. No acute abnormality. 2. Degenerative disc and degenerative facet joint disease are again seen at L5- S1. ACT 112: Negative or not required by law. Electronically signed by: Bertrand Zee M.D. 12/18/2021 12:44 PM Thoracic Spine X-Ray 12/19/21 08:23 THORACIC SPINE 3 VIEWS HISTORY: thoracic back pain COMPARISON: Thoracic spine 01/15/2021. FINDINGS: There is no fracture. No subluxation. Minimal dextroscoliosis of the thoracic spine, unchanged. Paraspinal soft tissues are unremarkable. Minimal degenerative change again noted within the thoracic spine. IMPRESSION: No fracture or subluxation within the thoracic spine. ACT 112: Negative or not required by law. Electronically signed by: Triston Castillo M.D. 12/19/2021 9:46 AM Hospital Course (1) Lumbar radiculopathy: Left lower extremity radiculopathy/neck pain/Thoracics pain/cervical paraspinal muscle spasm/lumbar paraspinal muscle spasm- Patient has received multiple medications in the emergency department including Dilaudid 1 mg IV x2, lorazepam 1 mg IV x2, fentanyl citrate 75 mcg IV, Toradol 15 mg IV, Benadryl 25 mg IV and dexamethasone 10 mg IV. All without any change in her reported pain. Plan: Baclofen 10 mg p.o. 3 times daily as needed muscle spasm Acetaminophen given in the hospital at 650mg po q4h prn K pad to affected area which she can continue to do at home but would advise 20-minute increments Pain management consulted, seen by ANDREW, he advised starting Gabapentin and Toraol Dr. Bennett, orthospine, consultedappreciate recommendations, does not recommend surgery at this time as her L5-S1 disease is mild and she is young Initially, patient was treated with Dilaudid 0.5 mg IV for moderate pain and 1 mg IV for severe pain on day of admission 12/18/2021 Adjusted pain medications on 12/19 as follows: Toradol 30 mg IV every 6 hours for moderate pain 4-6, adjust Dilaudid to 0.5 mg IV every 4 hours as needed pain scale 710 Discontinue Decadron and diclofenac as neither seem to be providing any relief As indicated below I have started her on Cymbalta 30 mg daily to help with neuropathic pain, this can be uptitrated but would not do so yet as it will take time to become effective (2) Neck pain: See above (3) Cervical paraspinal muscle spasm: See above (4) Lumbar paraspinal muscle spasm: See above (5) Thoracic back pain: See above (6) MARCOS (generalized anxiety disorder): Continue bupropion and hydroxyzine States she does not take Celexa that is prescribed to her Trial of Cymbalta 30mg daily as it may provide additional neuropathic pain relief RN alerted on 12/18 that patient was requesting Ativan, I explained that I would not be order oral Ativan on this patient given the amount of narcotics that she is receiving for her back pain, additionally she is not on this medication at home (7) Nausea: Zofran 4 mg IV every 6 hours ordered as needed nausea or vomiting Discussed this case at length with Dr. Bennett who does not feel that patient is a candidate for surgery at this time as her disc disease is very mild. Reviewed pain management consult note, adjustment in regimen as noted above and they are also advising outpatient f/u with them for another epidural steroid injection in about 2 weeks. At this time, there is no further work-up needed and nothing more that can be provided to the patient in house. She is medically and hemodynamically stable for discharge home. We will plan to place her on a regimen of acetaminophen and ibuprofen schedule three times daily over the next 48 to 72 hours. She can then utilize oxycodone for breakthrough pain. She can also utilize other conservative modalities such as heating pad to affected area and 20-minute increments, as well as [id number] Lidoderm patches or Biofreeze. Would recommend back stretches that have been provided to her previously by physical therapy. Keeping all scheduled follow-ups. Would avoid strenuous activity or heavy lifting. Again, pt will be discharged home today. Above plan of care has been discussed with Dr. Blum who has also seen and evaluated this patient prior to discharge. Total Time Total Time Spent Total Time Spent (In Minutes): <30 minutes Discharge Plan Discharge Items Patient Disposition: Home - Self-Care Reason For Visit: INTRACTABLE BACK PAIN Discharge Diagnosis: Back pain Activity: As commented below Activity Comment: as tolerated Non-emergency contact: Primary Care Provider and Pain Management Call non-emergency contact if: you have any medication questions, your symptoms worsen and your pain is not controlled Follow-up/Referrals: Luisa Roldan MD [Primary Care Provider] - Diet: Regular Addtl Attending Provider Instructions: Take all medications as outlined on med reconciliation. Recommend taking ibuprofen 800 mg together with acetaminophen 1000 mg 3 times daily. You may utilize the oxycodone that has been prescribed for breakthrough pain. Continue the scheduled ibuprofen and acetaminophen for the next 48 to 72 hours. Do not exceed more than 4 g of acetaminophen in a 24-hour period. You can continue to use a heating pad or warm compress to affected area, however would only do so in 20-minute intervals. Utilizing other [id number]-[id number] modalities such as lidocaine patches to the affected area is another option. Keep your scheduled follow-up with pain management will be crucial. Limiting your activity to avoid heavy lifting, pushing or pulling, or other strenuous activity is advised short-term until your pain has improved. Although, I would avoid prolonged periods of immobility as this can also worsen your pain. DO NOT TAKE oxycodone and drive or operate any machinery as this medication can alter your response time. Utilize back exercises and stretches that have been given to you previously by physical therapy. Follow-up with your primary care physician within 1 week of discharge. Pending Studies at Discharge: No Stand-Alone Forms: [facility], Smoking Cessation Medications and DC Order Prescriptions: New gabapentin 300 mg Capsule 300 mg PO BID Qty: 60 RF: 0 oxycodone 5 mg Tablet 5 - 10 mg PO Q4H PRN (Reason: pain) Qty: 20 RF: 0 duloxetine 30 mg Capsule,Delayed Release(Dr/Ec) 30 mg PO QAM Qty: 30 RF: 0 Continued baclofen 10 mg tablet 10 mg PO TID Qty: 30 RF: 0 desogestrel-ethinyl estradiol [Apri] 0.15-0.03 mg tablet 1 tab PO DAILY RF: 0 hydroxyzine pamoate [Vistaril] 25 mg capsule 25 mg PO DAILY PRN (Reason: Anxiety) RF: 0 bupropion HCl [Wellbutrin XL] 150 mg tablet extended release 24 hr 150 mg PO QAM RF: 0 metoclopramide HCl [Reglan] 10 mg tablet 10 mg PO Q8H PRN (Reason: nausea and vomiting) Qty: 12 RF: 0 Discontinued diclofenac sodium 75 mg tablet,delayed release (DR/EC) 75 mg PO BID Qty: 30 RF: 0 citalopram 40 mg tablet 20 mg PO HS RF: 0 Discharge Orders: Discharge Order (Routine); Ordered 12/20/21 Ordered By: Marisabel Haynes Admission Data Admit Date/Time: 12/18/21 01:25 Attending Provider: Emory Blum Admit Provider: Jamie Pappas Primary Care Provider: Luisa Roldan Other Providers: Jamie Pappas ; Diana Nava ; Tashi Bennett Coding Level of Care Code 08334 OBS Care - Discharge Diagnoses Lumbar radiculopathy M54.16 Neck pain M54.2 Cervical paraspinal muscle spasm M62.838 Lumbar paraspinal muscle spasm M62.830 Thoracic back pain M54.6 MARCOS (generalized anxiety disorder) F41.1 Nausea R11.0
[2021-12-21 14:52] LABS: Anti Nuclear Antibody Screen NEGATIVE (NEGATIVE)
== END 2021-12-20 16:18 | disposition home or self-care (01) ==
LOC: 3W 19:26 → ED 19:26 → SUATTDRO 12-18 01:25 → 3W 12-18 02:30

== ENCOUNTER 2022-02-06 09:47 | Inpatient (IN) ==
[2022-02-06] MEDS ORDERED: LIDOCAINE 5% 1 PATCH TD STA (10:23)
[2022-02-06] MEDS ORDERED: ONDANSETRON INJ 2 MG/ML 2 ML VIAL IV STA (10:23)
[2022-02-06] MEDS ORDERED: dexAMETHasone**PF** 10 MG/ML VIAL IV ONE (10:23)
[2022-02-06] MEDS ORDERED: HYDROmorphone INJ 0.5 MG/0.5 ML SYR IV STA ×4 (10:23→16:16)
[2022-02-06] MEDS ORDERED: KETOROLAC TROMETHAMINE 15 MG/ML VIAL IV STA (10:23)
--- NOTE | 2022-02-06 10:25 | Emergency Department Note ---
History of Present Illness General Chief complaint: Back Injury/Pain Stated complaint: BACK PAIN Time Seen by Provider: 02/06/22 10:10 History of Present Illness Maximum Pain Intensity: 9 This is a 26-year-old female that presents to the emergency department via private vehicle with complaints of "back pain". The patient notes that she has a history of lumbar radiculopathy, left side. She notes that the presentation today feels identical to previous exacerbations of her low back pain. She does note that recently she fell down a few steps this past Sunday. She notes that the pain has worsened and notes now discomfort is severe today. She is not able to sit down secondary to the pain. She denies any lower extremity weakness. She does note chronic urinary incontinence but this is not new. She notes that she has had MRI imaging of the L-spine since this has occurred. She denies any numbness/tingling in genital region. No fevers or chills. No vomiting. No abdominal pain. She does have some nausea she notes secondary to the pain. She denies any urinary symptoms. Although she notes a history of kidney stone she notes that this does not feel similar to those. Current pain 06/24. She notes that she must stand to deal with the pain. Home Medications Medication Instructions Recorded Confirmed Type bupropion HCl 150 mg 24 hr tablet, 150 mg PO QAM 05/27/21 02/06/22 History extended release (Wellbutrin XL) baclofen 10 mg tablet 10 mg PO TID #30 tab 11/28/21 02/06/22 Rx desogestrel 0.15 mg-ethinyl 1 tab PO QAM 12/17/21 02/06/22 History estradiol 0.03 mg tablet (Apri) cholecalciferol (vitamin D3) 1,250 50,000 unit PO WK 01/12/22 02/06/22 History mcg (50,000 unit) capsule hydroxyzine pamoate 25 mg capsule 25 mg PO QPM PRN 01/12/22 02/06/22 History (Vistaril) metoclopramide HCl 10 mg tablet 10 mg PO UD PRN 01/12/22 02/06/22 History (Reglan) hydrocodone 5 mg-acetaminophen 325 1 tab PO Q4H PRN #10 tab 01/17/22 02/06/22 Rx mg tablet duloxetine 30 mg capsule,delayed 30 mg PO HS #90 cap 01/20/22 02/06/22 Rx release gabapentin 400 mg capsule 400 mg PO PM #30 cap 02/03/22 02/06/22 Rx oxycodone 5 mg tablet 5 mg PO Q12H PRN #40 tab 02/03/22 02/06/22 Rx gabapentin 100 mg capsule 100 mg PO .AM & MIDDAY 02/06/22 02/06/22 History Allergies Allergy/AdvReac Type Severity Reaction Status Date / Time No Known Allergies Allergy Verified 02/06/22 15:38 Past Med/Surg History Medical History Anxiety Herniated disc LUMBAR AND CERVICAL (FULL ROM) History of kidney stones Sacroiliac joint pain Vitamin D deficiency HX, ? CURRENT STATUS Surgical History History of breast lump/mass excision (01/17/22) Excision of left breast mass. Dr. Jason 01/17/2022 Nasal fracture Repair of nasal fracture S/P cystoscopy with ureteral stent placement 12/05/20 Dr. Lamont Ambrose- Cystoscopy, Left ureteroscopy, Laser lithotripsy, Stone basket extraction of stone, Left retrograde pyelogram, Left ureteral stent placement Family History Mother Breast cancer Other Cancer Hypertension Kidney stones Denies family history of Ovarian cancer Prostate cancer Heart disease Myocardial infarction Colorectal cancer Social History Smoking Status: Never smoker Second Hand Exposure: No; Hx Alcohol Use: Yes Alcohol type: wine and hard liquor Hx Substance Use: No Preferred Language: Mohawk Communication Ability: Effective Visual Impairment: No Limitations Hearing Ability: Normal Bilingual Medical Assistant Required: No Beliefs That Will Affect Care: None marital status: Single Current Living Situation: Family Current Living Situation Comment: MOM AND STEPDAGabriela current occupational status: employed 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 @ [employer] How many Children do You have: 1 Feels Safe at Home: Yes Childhood Exposure to Second-Hand Smoke: No during the past year weight has: increased > 10 lbs Physical Activity Frequency: Daily Seatbelt Use: always Sunscreen Use: Yes Assistive Devices: None Review of Systems A total of 10 systems reviewed and were otherwise negative Physical Exam Vital Signs Vital Signs - 24 hr 02/06/22 10:02 02/06/22 11:47 02/06/22 13:00 Temperature 36.7 C Temperature Source Temporal Artery Scan Pulse Rate 139 H Pulse Rate [Apical] 112 H 104 H Pulse Rhythm Regular Pulse Strength Normal Respiratory Rate 20 16 23 Respiratory Effort / Characteristics Non-Labored Spontaneous Non-Labored Respiratory Depth Normal Respiratory Pattern Regular Blood Pressure 133/85 Blood Pressure [Left Arm] 146/87 H 144/87 H Blood Pressure Mean 101 Blood Pressure Mean [Left Arm] 106 106 Blood Pressure Position Sitting Pulse Oximetry 98 97 98 Oxygen Delivery Method Room Air Room Air Room Air Sepsis Recent Fever Within 48 Hours No Sepsis New/Unexplained Change in Mental Status No Sepsis Action Taken by Nursing No Action Required 02/06/22 15:00 Temperature Temperature Source Pulse Rate Pulse Rate [Apical] 107 H Pulse Rhythm Pulse Strength Respiratory Rate 16 Respiratory Effort / Characteristics Respiratory Depth Respiratory Pattern Blood Pressure Blood Pressure [Left Arm] 140/89 Blood Pressure Mean Blood Pressure Mean [Left Arm] 106 Blood Pressure Position Pulse Oximetry 98 Oxygen Delivery Method Sepsis Recent Fever Within 48 Hours Sepsis New/Unexplained Change in Mental Status Sepsis Action Taken by Nursing VITAL SIGNS - Vital signs and nursing notes were reviewed. Stable and afebrile. GENERAL -26-year-old female appearing her stated age who is in no acute distress but is standing at the bedside and appears to be in pain and is holding her low back with her hands. Communicates well with provider and answers questions appropriately. SKIN - Without rashes. HEAD - NC/AT. NECK - No nuchal rigidity. LUNGS - Chest wall symmetric without accessory muscle use, intercostals retractions, or central cyanosis. Normal vesicular breath sounds CTA B/L. No wheezes, rales, or rhonchi appreciated. CARDIAC - RRR with S1/S2. No murmur, rubs, or gallops appreciated. EXTREMITIES - No clubbing or peripheral cyanosis. +5/5 strength noted in UE/LE bilaterally. NEUROLOGIC - Cranial nerves II through XII grossly intact. Sensory intact to li ght touch throughout. Patellar reflexes +2/4. PSYCH - A&O, and cooperates fully with examiner. Pt is very pleasant and interacts well with examiner. Course Administered Medications Discontinued Medications Dexamethasone Sodium Phosphate (DexamethasonePf 10 Mg/Ml Vial) 10 mg IV NOW ONE Stop: 02/06/22 10:24 Last Admin: 02/06/22 10:46 Dose: 10 mg Documented by: [id number] Hydromorphone HCl (Hydromorphone Inj 0.5 Mg/0.5 Ml Syr) 0.5 mg IV NOW STA Stop: 02/06/22 10:24 Last Admin: 02/06/22 10:49 Dose: 0.5 mg Documented by: [id number] Hydromorphone HCl (Hydromorphone Inj 0.5 Mg/0.5 Ml Syr) 0.5 mg IV NOW STA Stop: 02/06/22 11:44 Last Admin: 02/06/22 11:57 Dose: 0.5 mg Documented by: [id number] Hydromorphone HCl (Hydromorphone Inj 0.5 Mg/0.5 Ml Syr) 0.5 mg IV NOW STA Stop: 02/06/22 14:29 Last Admin: 02/06/22 14:49 Dose: 0.5 mg Documented by: [id number] Ketorolac Tromethamine (Ketorolac Tromethamine 15 Mg/Ml Vial) 15 mg IV NOW STA Stop: 02/06/22 10:24 Last Admin: 02/06/22 10:48 Dose: 15 mg Documented by: [id number] Lidocaine (Lidocaine 5% 1 Patch) 1 patch TD NOW STA Stop: 02/06/22 10:24 Last Admin: 02/06/22 10:50 Dose: 1 patch Documented by: [id number] Ondansetron HCl (Ondansetron Inj 2 Mg/Ml 2 Ml Vial) 4 mg IV NOW STA Stop: 02/06/22 10:24 Last Admin: 02/06/22 10:44 Dose: 4 mg Documented by: [id number] Medical Decision Making Laboratory Data Result diagrams: 02/06/22 06:19 02/06/22 06:19 Lab Results 02/06/22 02/06/22 02/06/22 Range/Units 06:19 06:19 13:35 WBC 10.08 (4.8-10.8) K/uL RBC 4.57 (4.2-5.4) M/uL Hgb 13.8 (12.0-16.0) g/dL Hct 41.1 (37-47) % MCV 89.9 (80-100) fL MCH 30.2 (25-34) pg MCHC 33.6 (32-36) g/dL RDW Std Deviation 41.9 (36.4-46.3) fL RDW Coeff of Baldo 12.7 (11.5-14.5) % Plt Count 311 (130-400) K/uL MPV 10.0 (7.4-10.4) fL Immature Gran % (Auto) 0.2 % Neut % (Auto) 66.4 % Lymph % (Auto) 25.2 % Craig % (Auto) 7.8 % Eos % (Auto) 0.3 % Baso % (Auto) 0.1 % Neut # (Auto) 6.69 H (1.4-6.5) K/uL Lymph # (Auto) 2.54 (1.2-3.4) K/uL Craig # (Auto) 0.79 H (0.11-0.59) K/uL Eos # (Auto) 0.03 (0-0.5) K/uL Baso # (Auto) 0.01 (0-0.2) K/uL Immature Gran # (Auto) 0.02 (0.00-0.02) K/uL Sodium 136 (136-145) mmol/L Potassium 3.8 (3.5-5.1) mmol/L Chloride 102 (98-107) mmol/L Carbon Dioxide 23 (21-32) mmol/L Anion Gap 11 (3-11) BUN 11 (6-23) mg/dl Creatinine 0.73 (0.6-1.2) mg/dl Est Cr Clr Drug Dosing Not Reportable Est GFR ( Amer) 130.8 ml/min Est GFR (Non-Af Amer) 112.9 ml/min BUN/Creatinine Ratio 15.1 (10-20) Glucose 96 (70-99(Fasting)) mg/dl Calcium 9.3 (8.5-10.1) mg/dl Total Bilirubin 0.5 (0.2-1.0) mg/dl AST 16 (13-39) U/L ALT 14 (7-52) U/L Alkaline Phosphatase 73 (34-104) U/L Total Protein 7.9 (6.0-8.3) gm/dl Albumin 4.3 (3.4-5.0) gm/dl Globulin 3.6 (2.5-4.0) gm/dl Albumin/Globulin Ratio 1.2 (0.9-2) Urine Color Urine Appearance (Clear) Urine pH (4.5-7.5) Ur Specific [place] (1.000-1.030) Urine Protein (Negative) Urine Glucose (UA) (Negative) Urine Ketones (Negative) Urine Blood (Negative) Urine Nitrite (Negative) Urine Bilirubin (Negative) Urine Urobilinogen (Negative) Ur Leukocyte Esterase (Negative) Urine WBC (Auto) (0-5) /hpf Urine RBC (Auto) (0-4) /hpf U Hyaline Cast (Auto) (0-5) /lpf U Epithel Cells (Auto) (0-5) /lpf Urine Bacteria (Auto) (Negative) Urine Crystals Calcium Oxalate Crystal (None Prsent) Urine Mucus (None Prsent) POC Ur Test (NEG) SARS-CoV-2, RNA, NAAT NEGATIVE (NEGATIVE) 02/06/22 02/06/22 Range/Units Unknown Unknown WBC (4.8-10.8) K/uL RBC (4.2-5.4) M/uL Hgb (12.0-16.0) g/dL Hct (37-47) % MCV (80-100) fL MCH (25-34) pg MCHC (32-36) g/dL RDW Std Deviation (36.4-46.3) fL RDW Coeff of Baldo (11.5-14.5) % Plt Count (130-400) K/uL MPV (7.4-10.4) fL Immature Gran % (Auto) % Neut % (Auto) % Lymph % (Auto) % Craig % (Auto) % Eos % (Auto) % Baso % (Auto) % Neut # (Auto) (1.4-6.5) K/uL Lymph # (Auto) (1.2-3.4) K/uL Craig # (Auto) (0.11-0.59) K/uL Eos # (Auto) (0-0.5) K/uL Baso # (Auto) (0-0.2) K/uL Immature Gran # (Auto) (0.00-0.02) K/uL Sodium (136-145) mmol/L Potassium (3.5-5.1) mmol/L Chloride (98-107) mmol/L Carbon Dioxide (21-32) mmol/L Anion Gap (3-11) BUN (6-23) mg/dl Creatinine (0.6-1.2) mg/dl Est Cr Clr Drug Dosing Est GFR ( Amer) ml/min Est GFR (Non-Af Amer) ml/min BUN/Creatinine Ratio (10-20) Glucose (70-99(Fasting)) mg/dl Calcium (8.5-10.1) mg/dl Total Bilirubin (0.2-1.0) mg/dl AST (13-39) U/L ALT (7-52) U/L Alkaline Phosphatase (34-104) U/L Total Protein (6.0-8.3) gm/dl Albumin (3.4-5.0) gm/dl Globulin (2.5-4.0) gm/dl Albumin/Globulin Ratio (0.9-2) Urine Color Dark Yellow Urine Appearance Clear (Clear) Urine pH 5.5 (4.5-7.5) Ur Specific [place] 1.027 (1.000-1.030) Urine Protein Trace H (Negative) Urine Glucose (UA) Negative (Negative) Urine Ketones Trace H (Negative) Urine Blood 2+ H (Negative) Urine Nitrite Negative (Negative) Urine Bilirubin 1+ H (Negative) Urine Urobilinogen Negative (Negative) Ur Leukocyte Esterase 1+ H (Negative) Urine WBC (Auto) 5-10 H (0-5) /hpf Urine RBC (Auto) 10-30 H (0-4) /hpf U Hyaline Cast (Auto) 1-5 (0-5) /lpf U Epithel Cells (Auto) >30 H (0-5) /lpf Urine Bacteria (Auto) 2+ H (Negative) Urine Crystals Not Reportable Calcium Oxalate Crystal Present A (None Prsent) Urine Mucus Present A (None Prsent) POC Ur Test NEG (NEG) SARS-CoV-2, RNA, NAAT (NEGATIVE) Imaging Data Radiologist's Impression: Lumbar Spine X-Ray 02/06/22 10:23 XR lumbar spine min 4V routine CLINICAL HISTORY: Low back pain, down L leg. COMPARISON STUDY: 12/18/2021 TECHNIQUE: 5 Views of the lumbar spine FINDINGS: Bones: There is no evidence for fracture or malalignment. The heights of the vertebral bodies are maintained. There are no lytic or blastic lesions present. Disc spaces: There is again mild disc space narrowing at L5-S1. Facet joints: There is again mild hypertrophic facet joint disease at L5-S1. Soft tissues: The paraspinal soft tissues are within normal limits. IMPRESSION: 1. No acute abnormality. 2. Mild degenerative disc and degenerative facet joint disease is again seen at L5-S1. ACT 112: Negative or not required by law. Electronically signed by: Bertrand Zee M.D. 02/06/2022 11:46 AM Abdomen/Pelvis CT 02/06/22 14:19 CT abd pelvis wo con CLINICAL HISTORY: Low back pain. Recent fall down steps. History of left renal calculi COMPARISON STUDY: 10/17/2021 CT DOSE: 373.45 mGy.cm TECHNIQUE: Standard CT of the Abdomen and Pelvis was performed without IV contrast. The patient did not receive oral contrast. A dose lowering technique was utilized adhering to the principles of ALARA. FINDINGS: Lung base: The lung bases are clear. Abdominal cavity: There is no evidence for abdominal mass, adenopathy or ascites. Liver: The liver is homogeneous in attenuation on these limited noncontrast images.. Spleen: The spleen is homogeneous in attenuation on these limited noncontrast images. Pancreas: The pancreas is homogeneous in attenuation on these limited noncontrast images. Gall Bladder: The gallbladder is well distended with no evidence for cholelithiasis, wall thickening or pericholecystic edema.. Adrenal glands: The adrenal glands are normal in size and attenuation on these limited noncontrast images. Kidneys: The kidneys are homogeneous in attenuation on these limited noncontrast images. 3, 2 to 3 mm nonobstructing left renal calculi are again seen. There is no evidence for right renal calculus or hydronephrosis bilaterally. No gross renal mass is identified on these limited noncontrast images. Bowel: The bowel loops are normally placed within the abdomen and pelvis without evidence for dilatation or obstruction. There is no evidence for mass lesion. There are no inflammatory changes present. There is no evidence for free air. There is a normal appendix in the right lower quadrant. Bladder: There is no evidence for focal bladder wall thickening, calculus or diverticulum. : There is no evidence for pelvic mass or adenopathy. Vasculature: There is no evidence for focal aneurysmal dilatation of the abdominal aorta. Osseous structures: There is no acute osseous pathology. IMPRESSION: 1. Nonobstructing left renal calculi are again seen. 2. Otherwise, no acute intra-abdominal or pelvic abnormality on these limited noncontrast images. ACT 112: Negative or not required by law. Electronically signed by: Bertrand Zee M.D. 02/06/2022 2:57 PM [facility] Narrative Patient was seen and evaluated as above in room B10 Review was performed of nursing notes and vital signs. I did review pertinent previous visits and patient history. After obtaining a thorough history and physical examination the above work up was performed. Patient presents to us today for evaluation of low back pain with a history of lumbar radiculopathy. I did review the patient's pr evious MRI from last month. Clinically she appears well but does appear to be in pain. Her vital signs are stable. Options of care were discussed with the patient. IV access was established. Labs were drawn. She was medicated with IV Toradol, lidocaine patch, IV Dilaudid, IV dexamethasone. She was reevaluated with some improvement however after undergoing the x-rays of the L-spine her pain returned. Additional analgesics ordered. No leukocytosis or concerning anemia. No emergent metabo lic disturbance. Urinalysis reveals what is likely a contaminated sample. Urine test is negative. COVID test negative. L-spine x-ray as above. No fracture. Low suspicion for kidney stone or UTI/pyelonephritis. Do not suspect cauda equina syndrome. MRI results from previous as noted below. The patient at this time prefers inpatient management for her discomfort as she expresses concern about managing the pain in the outpatient setting. I discussed the case with the hospitalist. Please refer to further documentation regarding her stay. MRI from 12/17/2021: 1. Compared to the previous examination, there has been slight interval enlargement of small central to left paracentral disc protrusion/herniation at L5-S1. This abuts the left S1 nerve root without definite compression or swelling of the nerve root. While in the department, I personally reevaluated the patient several times and each time the patient was found to be experiencing back pain. GCS: 15 In the evaluation and treatment of this patient the following differential diagnosis entertained: Fracture, dislocation, subluxation, cauda equina syndrome, AAA, diverticulitis, appendicitis, torsion, osteomyelitis, piriformis syndrome, strain, sprain, among others. Impression & Plan Lumbar radiculopathy, Intractable back pain Discharge Plan Visit Data Chief Complaint: Back Injury/Pain Stated Complaint: BACK PAIN ED Provider: Ellie Haas ED Midlevel Provider: David Schwarz Discharge Problem: Lumbar radiculopathy, Intractable back pain Patient Disposition: Admitted As Inpatient Condition: Good Forms Stand Alone Forms: [facility], Virtual Emergency Department, Important Visit Information Prescriptions Prescriptions: No Action baclofen 10 mg tablet 10 mg PO TID Qty: 30 RF: 0 duloxetine 30 mg capsule,delayed release(DR/EC) 30 mg PO HS Qty: 90 RF: 1 gabapentin 400 mg capsule 400 mg PO PM Qty: 30 RF: 5 oxycodone 5 mg tablet 5 mg PO Q12H PRN (Reason: pain, severe) Qty: 40 RF: 0 metoclopramide HCl [Reglan] 10 mg tablet 10 mg PO UD PRN (Reason: nausea and vomiting) RF: 0 hydroxyzine pamoate [Vistaril] 25 mg capsule 25 mg PO QPM PRN (Reason: Anxiety) RF: 0 cholecalciferol (vitamin D3) 1,250 mcg (50,000 unit) capsule 50,000 unit PO WK RF: 0 hydrocodone-acetaminophen 5-325 mg tablet 1 tab PO Q4H PRN (Reason: pain) Qty: 10 RF: 0 desogestrel-ethinyl estradiol [Apri] 0.15-0.03 mg tablet 1 tab PO QAM RF: 0 gabapentin 100 mg capsule 100 mg PO .AM & MIDDAY RF: 0 bupropion HCl [Wellbutrin XL] 150 mg tablet extended release 24 hr 150 mg PO QAM RF: 0 Referrals Referrals: Luisa Roldan MD [Primary Care Provider] -
[2022-02-06 10:50] LABS: Basophils # (auto) 0.01 K/uL (0-0.2); Basophils % (auto) 0.1 %; Eosinophils # (auto) 0.03 K/uL (0-0.5); Eosinophils % (auto) 0.3 %; Hematocrit (blood only) 41.1 % (37-47); Hemoglobin 13.8 g/dL (12.0-16.0); Immature Granulocytes # (auto) 0.02 K/uL (0.00-0.02); Immature Granulocytes % (auto) 0.2 %; Lymphocytes # (auto) 2.54 K/uL (1.2-3.4); Lymphocytes % (auto) 25.2 %; Mean Corpuscular Hemoglobin 30.2 pg (25-34); Mean Corpuscular Hgb Conc 33.6 g/dL (32-36); Mean Corpuscular Volume 89.9 fL (80-100); Monocytes # (auto) 0.79 K/uL (0.11-0.59); Monocytes % (auto) 7.8 %; Neutrophils # (auto) 6.69 K/uL (1.4-6.5); Neutrophils % (auto) 66.4 %; Platelet Count 311 K/uL (130-400); RDW Coefficient of Variation 12.7 % (11.5-14.5); RDW Standard Deviation 41.9 fL (36.4-46.3); Red Blood Count 4.57 M/uL (4.2-5.4); White Blood Count 10.08 K/uL (4.8-10.8)
[2022-02-06 11:06] LABS: Alanine Aminotransferase 14 U/L (7-52); Albumin Globulin Ratio 1.2 (0.9-2); Albumin Level 4.3 gm/dl (3.4-5.0); Alkaline Phosphatase 73 U/L (34-104); Anion Gap 11 (3-11); Aspartate Aminotransferase 16 U/L (13-39); BUN Creatinine Ratio 15.1 (10-20); Bilirubin,Total 0.5 mg/dl (0.2-1.0); Blood Urea Nitrogen 11 mg/dl (6-23); Calcium 9.3 mg/dl (8.5-10.1); Carbon Dioxide 23 mmol/L (21-32); Chloride 102 mmol/L (98-107); Est GFR (African American) 130.8 ml/min; Est GFR (Non-African American) 112.9 ml/min; Globulin 3.6 gm/dl (2.5-4.0); Glucose 96 mg/dl (70-99(Fasting)); Potassium 3.8 mmol/L (3.5-5.1); Sodium 136 mmol/L (136-145); Total Protein 7.9 gm/dl (6.0-8.3)
[2022-02-06 11:47] LABS: Appearance Urine Clear (Clear); Blood Urine 2+ (Negative); Color Urine Dark Yellow; Epithelial Cell Urine Auto >30 /lpf (0-5); Glucose Urine UA Negative (Negative); Ketones Urine Trace (Negative); Leukocyte Esterase Urine 1+ (Negative); Nitrite Urine Negative (Negative); Protein Urine Trace (Negative); Specific Gravity Urine 1.027 (1.000-1.030); Urobilinogen Urine Negative (Negative); pH Urine 5.5 (4.5-7.5)
[2022-02-06 11:48] LABS: Bilirubin Urine 1+ (Negative)
--- NOTE | 2022-02-06 11:49 | XRay Report ---
XR lumbar spine min 4V routine CLINICAL HISTORY: Low back pain, down L leg. COMPARISON STUDY: 12/18/2021 TECHNIQUE: 5 Views of the lumbar spine FINDINGS: Bones: There is no evidence for fracture or malalignment. The heights of the vertebral bodies are earl ntained. There are no lytic or blastic lesions present. Disc spaces: There is again mild disc space narrowing at L5-S1. Facet joints: There is again mild hypertrophic facet joint disease at L5-S1. Soft tissues: The paraspinal soft tissues are within normal limits. IMPRESSION: 1. No acute abnormality. 2. Mild degenerative disc and degenerative facet joint disease is again seen at L5-S1. ACT 112: Negative or not required by law. Electronically signed by: Bertrand Zee M.D. 02/06/2022 11:46 AM
[2022-02-06 12:06] LABS: Bacteria Urine Automated 2+ (Negative); Calcium Oxalate Crystals Urine Present (None Prsent); Mucus Urine Present (None Prsent)
--- NOTE | 2022-02-06 13:53 | History & Physical Report ---
Date of Service February 06, 2022 Assessment & Plan (1) Intractable back pain: Plan: - Acute on chronic lumbar/sacral pain consistent with sacroiliitis; CT A/P ordered to evaluate for kidney stone as she has PMH of these, does have calcium oxalate and blood present in urine, not currently menstruating. However only nonobstructing stones were seen. - Received 0.5 mg IV Dilaudid x3, dexamethasone, Toradol, lidocaine patch in ED with minimal resolution of pain. - Continue home regimen of scheduled baclofen, gabapentin, duloxetine (will from 30 mg to 60 mg), with oxycodone PRN for now. Will also order IV Toradol 30 mg q6h PRN, IV Dilaudid, heating pad, lidocaine patches. - Pain management had seen pt on last admission 12/20/21, have consulted them again due to ongoing pain without relief. Most recently seen by them on 12/28 for an SI joint injection with some pain relief for about 1 week. Appreciate their recommendations. - Zofran, Reglan prn for nausea. - On last admission, patient was evaluated by Dr. Bennett who does not feel that patient is a candidate for surgery at this time as her disc disease is very mild. (2) Depression: Plan: -Continue Wellbutrin. -Increase Cymbalta from 30mg to 60mg to help with any neuropathic pain (3) Anxiety: Plan: -Continue hydroxyzine, Wellbutrin, Cymbalta (4) Hyperthyroidism: Plan: -Not currently taking medication for this. Most recent TSH normal Plan: -Med/surg OBS. -SCDs for DVT ppx, low risk not requiring chemoppx. -Full Code. History of Present Illness Chief Complaint: intractable back pain x 1 day Primary Care Provider: Luisa Roldan MD The patient is a 26-year-old female with a past medical history including chronic back pain and anxiety/depression who presents to the emergency department with a worsening of her low back pain. Patient has had chronic back pain for several months without any inciting event that she can recall. She has been admitted several times for this and seen by pain management most recently during her admission on 12/20/21 and on 12/28 for a steroid injection. She has had minimal relief of moderate back pain since then, but notes it has been severe over the past 24 hours. She did fall down a few steps on Sunday, but did not experience any pain until last night. Her pain is consistent with her typical presentation, it is sharp, stabbing in the lower lumbar/sacral region with radiation in left buttocks and down her left leg/toes. No motor/sensory deficits. Otherwise, has been in her usual state of health, denies fever/chills, night sweats, weight loss, chest pain, palpitations, shortness of breath, abdominal pain, nausea, vomiting, constipation, diarrhea, bowel/bladder incontinence, or urinary symptoms. Had a fibroadenoma of the breast removed earlier this month without complications, was seen by her PCP on 02/03 who adjusted her gabapentin to 100mg during the daily and 400 mg in the evening, but she did not yet take the higher dose in the evening. Vital signs significant for elevated HR in 120s in setting of pain, otherwise VS wnl, stable. Labs largely unremarkable, although UA positive for blood, calcium oxalate. Lumbar XR showed no acute abnormality, Mild degenerative disc and degenerative facet joint disease is again seen at L5-S1. CT A/P showed nonobstructing left renal calculi, previously seen on prior imaging. No acute findings. Allergies Allergy/AdvReac Type Severity Reaction Status Date / Time No Known Allergies Allergy Verified 02/06/22 15:38 Home Medications Medication Instructions Recorded Confirmed Type bupropion HCl 150 mg 24 hr tablet, 150 mg PO QAM 05/27/21 02/06/22 History extended release (Wellbutrin XL) baclofen 10 mg tablet 10 mg PO TID #30 tab 11/28/21 02/06/22 Rx desogestrel 0.15 mg-ethinyl 1 tab PO QAM 12/17/21 02/06/22 History estradiol 0.03 mg tablet (Apri) cholecalciferol (vitamin D3) 1,250 50,000 unit PO WK 01/12/22 02/06/22 History mcg (50,000 unit) capsule hydroxyzine pamoate 25 mg capsule 25 mg PO QPM PRN 01/12/22 02/06/22 History (Vistaril) metoclopramide HCl 10 mg tablet 10 mg PO UD PRN 01/12/22 02/06/22 History (Reglan) hydrocodone 5 mg-acetaminophen 325 1 tab PO Q4H PRN #10 tab 01/17/22 02/06/22 Rx mg tablet duloxetine 30 mg capsule,delayed 30 mg PO HS #90 cap 01/20/22 02/06/22 Rx release gabapentin 400 mg capsule 400 mg PO PM #30 cap 02/03/22 02/06/22 Rx oxycodone 5 mg tablet 5 mg PO Q12H PRN #40 tab 02/03/22 02/06/22 Rx gabapentin 100 mg capsule 100 mg PO .AM & MIDDAY 02/06/22 02/06/22 History Past Med/Surg History Medical History Anxiety Herniated disc LUMBAR AND CERVICAL (FULL ROM) History of kidney stones Sacroiliac joint pain Vitamin D deficiency HX, ? CURRENT STATUS Surgical History History of breast lump/mass excision (01/17/22) Excision of left breast mass. Dr. Jason 01/17/2022 Nasal fracture Repair of nasal fracture S/P cystoscopy with ureteral stent placement 12/05/20 Dr. Lamont Ambrose- Cystoscopy, Left ureteroscopy, Laser lithotripsy, Stone basket extraction of stone, Left retrograde pyelogram, Left ureteral stent placement Family History Mother Breast cancer Other Cancer Hypertension Kidney stones Denies family history of Ovarian cancer Prostate cancer Heart disease Myocardial infarction Colorectal cancer Social History Smoking Status: Never smoker Second Hand Exposure: No; Hx Alcohol Use: Yes Alcohol type: wine and hard liquor Hx Substance Use: No Preferred Language: Sudanese Communication Ability: Effective Visual Impairment: No Limitations Hearing Ability: Normal Residential Energy Auditor Required: No Beliefs That Will Affect Care: None marital status: Single Current Living Situation: Family Current Living Situation Comment: [facility] current occupational status: employed 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 @ [employer] How many Children do You have: 1 Other Information That Helps Us Care for You: No Feels Safe at Home: Yes Safety Concerns: Feels Safe At This Time Childhood Exposure to Second-Hand Smoke: No during the past year weight has: increased > 10 lbs Physical Activity Frequency: Daily Seatbelt Use: always Sunscreen Use: Yes Assistive Devices: None Review of Systems Review of Systems: Constitutional: No fever/chills, weakness, fatigue, myalgias, anorexia, night sweats Eyes: No diplopia, no worsening or blurred vision ENT: normal hearing, no trouble swallowing Respiratory: No cough, sputum, dyspnea at rest or on exertion Cardiovascular: No chest pain, tightness or palpitations Abdomen: No pain, nausea, vomiting, diarrhea or constipation : Denies dysuria, hematuria, increased urgency/frequency, urinary retention Musculoskeletal: acute worsening of left SI joint pain with radiation to left leg; otherwise no joint pain, calf pain, swelling Neurologic: No weakness, numbness/tingling, or balance problems Psychiatric: No anxiety or depression Skin: No rash or itch Physical Exam Physical Exam: General: awake, alert, standing at bedside due to back pain but otherwise no apparent distress Head: Normocephalic, atraumatic ENT: PERRL, EOMI, no pharyngeal exudate, mucous membranes moist Chest: Clear to auscultation, on room air, no adventitious breath sounds Cardiac: tachycardic, regular rhythm, no murmur, no JVD, normal peripheral pulses, good capillary refill Abdominal: NABS x 4 quadrants, soft, nontender to palpation, no rebound, guarding or tenderness Back/Extremities: small healing bruise on thoracic spine consistent with reported fall on stairs two days ago; mild tenderness along thoracic spine, left low back is tender upon palpation, no motor or sensation deficits; normal inspection of extremities, no peripheral edema or erythema, calfs nontender to palpation Psych: Normal mood and affect Neuro: AAO x 3, strength intact bilaterally and rated 5/5, no motor deficits, speech is clear, no peripheral sensory deficits Skin: no rash or erythema Results & Data Results & Data ([facility]) Vital Signs (Past 12 Hours) Vital Signs Temp Pulse Pulse Resp BP BP Pulse Ox 02/06/22 11:47 112 H 16 146/87 H 97 02/06/22 10:02 36.7 C 139 H 20 133/85 98 Laboratory Results Abnormal lab results 02/06/22 02/06/22 Range/Units 06:19 Unknown Neut # (Auto) 6.69 H (1.4-6.5) K/uL Vilas # (Auto) 0.79 H (0.11-0.59) K/uL Urine Protein Trace H (Negative) Urine Ketones Trace H (Negative) Urine Blood 2+ H (Negative) Urine Bilirubin 1+ H (Negative) Ur Leukocyte Esterase 1+ H (Negative) Urine WBC (Auto) 5-10 H (0-5) /hpf Urine RBC (Auto) 10-30 H (0-4) /hpf U Epithel Cells (Auto) >30 H (0-5) /lpf Urine Bacteria (Auto) 2+ H (Negative) Calcium Oxalate Crystal Present A (None Prsent) Urine Mucus Present A (None Prsent) Diagnostic Findings Lumbar Spine X-Ray 02/06/22 10:23 XR lumbar spine min 4V routine CLINICAL HISTORY: Low back pain, down L leg. COMPARISON STUDY: 12/18/2021 TECHNIQUE: 5 Views of the lumbar spine FINDINGS: Bones: There is no evidence for fracture or malalignment. The heights of the vertebral bodies are maintained. There are no lytic or blastic lesions present. Disc spaces: There is again mild disc space narrowing at L5-S1. Facet joints: There is again mild hypertrophic facet joint disease at L5-S1. Soft tissues: The paraspinal soft tissues are within normal limits. IMPRESSION: 1. No acute abnormality. 2. Mild degenerative disc and degenerative facet joint disease is again seen at L5-S1. ACT 112: Negative or not required by law. Electronically signed by: Bertrand Zee M.D. 02/06/2022 11:46 AM Code Status & VTE Plan Code Status Full Code. VTE Prophylaxis Plan VTE Prophylaxis will be ordered: Yes Supervising Physician Co-Signing Physician Notes PA Supervision Note: I personally saw and examined the patient. I verified all lowry points and agree with LION Figueroa with the following exceptions and/or additions: This patient is a 26-year-old female with a 1 year history of waxing and waning mid and left lower back pain with previous hospitalizations for intractable pain. She presents again with history noted as above with acutely worsening lower back pain rating down the left buttocks and leg. No weakness or numbness. No fevers. Had extensive work-up last month during hospitalization with MRI lumbar spine, CT lumbar spine, seen by pain management afterwards and had SI joint injection which did provide some relief temporarily. Also seen by orthopedic spine surgeon who did not recommend surgery. Patient reports physical therapy, osteopathic manipulation, and chiropractor work in the past have all significantly exacerbated her pain. Steroids may or may not have helped her in the past. History and ROS reviewed as above O- Vitals reviewed Gen: AAOx3, NAD HEENT: Anicteric sclerae, EOMI CV: RRR no mgr nl S1S2 Pulm: CTAB no wcr Abd: +BS soft NT ND no masses or hernias Ext: No edema, positive exquisite tenderness to palpation over the left SI joint and left paraspinous muscles in the L5 region, no masses Skin: No rashes, warm/dry Neuro: Full strength throughout lower extremities, DTRs 2+ in patellar and Achilles, sensation slightly decreased to light touch in left medial leg but otherwise intact, positive pain in the lower back with straight leg raise but no radicular symptoms with straight leg raise Labs reviewed A/E-07-oiae-old female here with intractable lower back pain likely secondary to sacroiliitis. I do not believe the majority of her pain is coming from a radiculopathy. It is one-sided she has no other joint pains anywhere else so doubtful that she has psoriatic arthritis or ankylosing spondylitis but could check HLA-B27. ESR and CRP last admission were not elevated. Start Medrol Dosepak, continue Toradol, Dilaudid, Tylenol, lidocaine patch, heating pad Consult pain management PG Care Time/CCT Total # of Minutes Spent Total Time Spent with Patient: Total time spent is greater than 50% in coordination of care (as documented) at patient's floor/unit and/or counseling patient: Coding Level of Care Code INT OBSERVATION CARE 70M LVL 3 Diagnoses Intractable back pain M54.9 Depression F32.9 Hyperthyroidism E05.90 Anxiety F41.9
--- NOTE | 2022-02-06 14:59 | CT Scan Report ---
CT abd pelvis wo con CLINICAL HISTORY: Low back pain. Recent fall down steps. History of left renal calculi COMPARISON STUDY: 10/17/2021 CT DOSE: 373.45 mGy.cm TECHNIQUE: Standard CT of the Abdomen and Pelvis was performed without IV contrast. The patient did not receive oral contrast. A dose lowering technique was utilized adhering to the principles of KAREN Steinberg FINDINGS: Lung base: The lung bases are clear. Abdominal cavity: There is no evidence for abdominal mass, adenopathy or ascites. Liver: The liver is homogeneous in attenuation on these limited noncontrast images.. Spleen: The spleen is homogeneous in attenuation on these limited noncontrast images. Pancreas: The pancreas is homogeneous in attenuation on these limited noncontrast images. Gall Bladder: The gallbladder is well distended with no evidence for cholelithiasis, wall thickening or pericholecystic edema.. Adrenal glands: The adrenal glands are normal in size and attenuation on these limited noncontrast im ages. Kidneys: The kidneys are homogeneous in attenuation on these limited noncontrast images. 3, 2 to 3 mm nonobstructing left renal calculi are again seen. There is no evidence for right renal calculus or h ydronephrosis bilaterally. No gross renal mass is identified on these limited noncontrast images. Bowel: The bowel loops are normally placed within the abdomen and pelvis without evidence for dilatat ion or obstruction. There is no evidence for mass lesion. There are no inflammatory changes present. There is no evidence for free air. There is a normal appendix in the right lower quadrant. Bladder: There is no evidence for focal bladder wall thickening, calculus or diverticulum. : There is no evidence for pelvic mass or adenopathy. Vasculature: There is no evidence for focal aneurysmal dilatation of the abdominal aorta. Osseous structures: There is no acute osseous pathology. IMPRESSION: 1. Nonobstructing left renal calculi are again seen. 2. Otherwise, no acute intra-abdominal or pelvic abnormality on these limited noncontrast images. ACT 112: Negative or not required by law. Electronically signed by: Bertrand Zee M.D. 02/06/2022 2:57 PM
[2022-02-06] MEDS ORDERED: POLYETHYLENE (MIRALAX) 17 GM PACK PO PRN (17:51)
[2022-02-06] MEDS ORDERED: oxyCODONE HCL IR 5 MG TAB (IMMEDIATE RELEASE) PO PRN (17:51)
[2022-02-06] MEDS ORDERED: GABAPENTIN 100 MG CAP PO SCH (17:51)
[2022-02-06] MEDS: ACETAMINOPHEN 325 MG TAB PO PRN ×2 (18:03→22:26)
[2022-02-06] MEDS ORDERED: HYDROmorphone INJ 0.5 MG/0.5 ML SYR IV PRN (18:45)
[2022-02-06] MEDS: KETOROLAC TROMETHAMINE 15 MG/ML VIAL IV PRN (18:52)
[2022-02-06] MEDS: BACLOFEN 10 MG TAB PO SCH (19:50)
[2022-02-06] MEDS: HYDROmorphone INJ 0.5 MG/0.5 ML SYR IV PRN (19:52)
[2022-02-06] MEDS: GABAPENTIN 400 MG CAP PO SCH (22:28)
[2022-02-06] MEDS: DULoxetine HCL 60 MG CAP PO SCH (22:28)
[2022-02-07] MEDS: HYDROmorphone INJ 0.5 MG/0.5 ML SYR IV PRN ×6 (00:10→21:04)
[2022-02-07] MEDS: KETOROLAC TROMETHAMINE 15 MG/ML VIAL IV PRN ×2 (02:06→12:17)
[2022-02-07] MEDS: oxyCODONE HCL IR 5 MG TAB (IMMEDIATE RELEASE) PO PRN ×4 (02:10→22:59)
[2022-02-07] MEDS ORDERED: methylPREDNISolone 4 MG TAB PO SCH (07:00)
[2022-02-07] MEDS: BACLOFEN 10 MG TAB PO SCH ×2 (08:11→12:48)
[2022-02-07] MEDS: GABAPENTIN 100 MG CAP PO SCH ×2 (08:12→12:48)
[2022-02-07] MEDS: buPROPion XL 150 MG TABCR PO SCH (08:13)
--- NOTE | 2022-02-07 08:51 | Hospitalist Progress Note ---
Date of Service February 07, 2022 Assessment & Plan (1) Intractable back pain: Plan: 26 yo female with PMHx of chronic back pain, anxiety, and depression who presented to the emergency department with a worsening of her low back pain. #Intractable back pain -presented with lumbosacral pain with exacerbation over over left sacroiliac region with radiating numbness/tingling down back of left leg -likely due to biomechanical causes; specifically piriformis muscle spasm given exquisite tenderness to palpation over muscle and radiating symptoms -although MRI during last admission did show mild disc protrusion at L5/S1, this does not appear to be the root cause of her pain -CT A/P (02/06): nonobstructing kidney stones, UA:+calcium oxalate, +blood - Received 0.5 mg IV Dilaudid x3, dexamethasone, Toradol, lidocaine patch in ED with minimal resolution of pain. - Continue home regimen of scheduled baclofen, gabapentin, duloxetine (will from 30 mg to 60 mg), with oxycodone q4h PRN. Cont. IV Toradol 30 mg q6h PRN, IV Dilaudid, heating pad, lidocaine patches. Started valium 5mg qid, voltaren gel, magnesium 4g IV. OMT performed over left piriformis and lumbosacral paraspinals. - discontinued solumedrol since will likely have minimal to no effect on biomechanical causes of current pain. - Appreciate pain management recommendations. Most recently seen by them on 12/28 for an SI joint injection with some pain relief for about 1 week. - On last admission, patient was evaluated by Dr. Bennett who does not feel that patient is a candidate for surgery at this time as her disc disease is very mild. #Depression -Continue Wellbutrin. -Increase Cymbalta from 30mg to 60mg to help with any neuropathic pain #Anxiety -Continue hydroxyzine, Wellbutrin, Cymbalta #Hyperthyroidism -Not currently taking medication for this. -Most recent TSH normal #Constipation -reportedly hasn't had BM since 01/24 -started miralax scheduled TID DVT ppx: SCDs FEN/GI: regular Code Status: full Dispo: med/surg (2) Constipation: (3) Depression: (4) Anxiety: (5) Hyperthyroidism: Admission and Anticipated Discharge Date Admission Date: February 06, 2022 Supervising Physician Co-Signing Physician Notes I personally examined the patient and verified all lowry points of history and exam, discussed case, and agree with decision making with Dr Avila. Back pain acute on chronichas been going on for much of the last year. Notes that she has had several flareups, has been in and out of the hospital, but frequently has recurrences. Had a lumbar epidural steroid injection that did not help. A month or so ago she had an SI joint injection that helped for about a week but then things got bad again. Pain is in her lower back left side predominantly centered around the SI joint and her buttock, but also a little bit up in the lumbar area. She also has a radicular numbness but not pain that is almost like a lying down the back of her leg. Vitals noted, in general she is awake and alert pleasant no distress. HEENT normocephalic atraumatic mucous membranes moist. Breathing unlabored no accessory muscle use good effort. Skin shows no rashes no pallor or icterus. Neuro shows positive straight leg raise for pain. Has subjective diminished sensation to confrontational light touch diffusely in essentially ever nerve distribution on her left leg. Motor seems to be 5 out of 5 and equal bilateral ly. No muscle wasting atrophy etc. Musculoskeletal/osteopathic shows her to have exquisite tenderness in the region of her left piriformis muscle as well as some significant high tone, tender, decreased into motionpost isometric relaxation done times multiple repetitions with some improvement in range of motion, followed by ligamentous articular strain that showed some improvement in pain as well as tissue texture. This was followed by direct myofascial and LAS to her left-sided lumbar paraspinals that were high tone, tender, decreased decreased range of motion as well. Patient tolerated well. Shortly after completing OMT she rolled and noted her SI joint popped a little bit and that felt good. Low back painstrongly suspect biomechanical. While she does have a small degree of L5-S1 disc disease on imaging, her symptoms seem to fit much more with piriformis and a little bit of a peripheral sciatica accounting for the numbness that she feels. This does not explain the circumferential whole leg numbness that I found on confrontational light touch, but she has nothing else that really seems SUPERVISOR TELEPHONE INFORMATION relatedso at this point time will manage as the biomechanical strain pattern, and then if the left neck numbness persists can consider brain imaging, although I doubt this will be necessary. Try to effect muscle relaxation with Valium and IV magnesium. Continue as needed's for pain, scheduled Toradol, add Voltaren gel. Somatic dysfunction pelvic region and lumbar spineOMT as above. Anticipated need for ongoing OMT. Otherwise as above Subjective Seen at bedside today. Remains in extreme pain this morning. Only slept 1 hour overnight due to pain. Thinks her pain meds are too spread apart and oxycodone 5mg not enough. Complains of constant numbness/tingling down back of left leg. Review of Systems Review of Systems: All systems reviewed & are unremarkable except as noted in Subjective Physical Exam Physical Exam: General: awake, alert, in moderate distress sitting in bed HEENT: NCAT, PERRL, EOMI, moist mucous membranes Chest: Clear to auscultation, on room air, no adventitious breath sounds Cardiac: tachycardic, regular rhythm, no murmur, no JVD, normal peripheral pulses, good capillary refill Abdominal: NABS x 4 quadrants, soft, nontender to palpation, no guarding Back/Extremities: small healing bruise near left thoracic spine consistent with reported fall on 02/03; mild tenderness along thoracic spine, left low back is tender upon palpation specifically along left piriformis and over lumbosacral region; paraesthesia globally along left leg, exacerbation with straight leg raise on left. Psych: Normal mood and affect Neuro: AAOx3, no motor deficits, speech is clear, no peripheral sensory deficits Skin: no rash or erythema Results & Data Results & Data ([facility]) Vital Signs (Past 12 Hours) Vital Signs Temp Pulse Resp BP Pulse Ox 02/07/22 07:53 37 C 103 H 16 137/85 99 02/06/22 22:07 37 C 110 H 16 130/85 98 Resident Activity Tracking Resident Involvement: Resident Care Provided Care Provided: Adult Hospital Medicine
--- NOTE | 2022-02-07 08:57 | Pain Management Consultation ---
Date of Consultation February 07, 2022 Assessment & Plan (1) Anxiety: (2) Depression: (3) Neck pain: (4) Thoracic back pain: (5) Lumbar radiculopathy: Recommend continuation of Medrol Ishmael for acute pain. Nothing to offer interventionally. Her Vitamin D level was low at her last hospitalization. I would recommend supplementation. She will continue her current regimen of baclofen, Cymbalta, gabapentin, as needed oxycodone. Continue lidocaine patch and Medrol pack. Limit use of Toradol and hydromorphone. Appointment with our office for tomorrow has been cancelled and can be rescheduled if needed. Thank you for the consultation. Please contact with any questions or concerns. History of Present Illness Reason for Consultation: Lumbar pain Attending Physician: Dung Terry DO History of Present Illness This is a 26 year old female that is known to the [facility] with lumbar pain and myofascial pain. She has previously failed any benefit from a lumbar epidural injection and had about 1 week of pain relief from an SI joint injection. Patient states that she fell down a staircase 5 days ago and thinks that may have worsened her pain. There is a sharp pain in the lumbosacral region that will radiate down the left buttock and down the posterior aspect of the left leg. She does also describe a spasming and aching sensation in her trapezius areas. At home she does receive baclofen 10 mg 3 times daily, Cymbalta 60 mg at bedtime, gabapentin 200 mg twice daily and 400 mg at bedtime, and oral oxycodone as needed. In addition during her hospitalization she is receiving a Medrol Dosepak, IV Toradol, IV Dilaudid, and lidocaine patch. She denies any bowel/bladder incontinence, saddle anesthesia, foot drop, leg weakness, falls. Case discussed with Dr. Diana Nava Pain Assessment Full Body Front + Back: 1. 2. 3. 4. Allergies Allergy/AdvReac Type Severity Reaction Status Date / Time No Known Allergies Allergy Verified 02/06/22 15:38 Home Medications Medication Instructions Recorded Confirmed Type bupropion HCl 150 mg 24 hr tablet, 150 mg PO QAM 05/27/21 02/06/22 History extended release (Wellbutrin XL) baclofen 10 mg tablet 10 mg PO TID #30 tab 11/28/21 02/06/22 Rx desogestrel 0.15 mg-ethinyl 1 tab PO QAM 12/17/21 02/06/22 History estradiol 0.03 mg tablet (Apri) cholecalciferol (vitamin D3) 1,250 50,000 unit PO WK 01/12/22 02/06/22 History mcg (50,000 unit) capsule hydroxyzine pamoate 25 mg capsule 25 mg PO QPM PRN 01/12/22 02/06/22 History (Vistaril) metoclopramide HCl 10 mg tablet 10 mg PO UD PRN 01/12/22 02/06/22 History (Reglan) hydrocodone 5 mg-acetaminophen 325 1 tab PO Q4H PRN #10 tab 01/17/22 02/06/22 Rx mg tablet duloxetine 30 mg capsule,delayed 30 mg PO HS #90 cap 01/20/22 02/06/22 Rx release gabapentin 400 mg capsule 400 mg PO PM #30 cap 02/03/22 02/06/22 Rx oxycodone 5 mg tablet 5 mg PO Q12H PRN #40 tab 02/03/22 02/06/22 Rx gabapentin 100 mg capsule 100 mg PO .AM & MIDDAY 02/06/22 02/06/22 History Patient History Medical History Anxiety Herniated disc LUMBAR AND CERVICAL (FULL ROM) History of kidney stones Sacroiliac joint pain Vitamin D deficiency HX, ? CURRENT STATUS Surgical History History of breast lump/mass excision (01/17/22) Excision of left breast mass. Dr. Jason 01/17/2022 Nasal fracture Repair of nasal fracture S/P cystoscopy with ureteral stent placement 12/05/20 Dr. Lamont Ambrose- Cystoscopy, Left ureteroscopy, Laser lithotripsy, Stone basket extraction of stone, Left retrograde pyelogram, Left ureteral stent placement Family History Mother Breast cancer Other Cancer Hypertension Kidney stones Denies family history of Ovarian cancer Prostate cancer Heart disease Myocardial infarction Colorectal cancer Social History Smoking Status: Never smoker Second Hand Exposure: No; Hx Alcohol Use: Yes Alcohol type: wine and hard liquor Hx Substance Use: No Preferred Language: Romanian Communication Ability: Effective Visual Impairment: No Limitations Hearing Ability: Normal Insurance Counselor Required: No Beliefs That Will Affect Care: None marital status: Single Current Living Situation: Family Current Living Situation Comment: [facility] current occupational status: employed 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 HEAD/FACE: Normocephalic and atraumatic. EYES: No drainage or conjunctival injection. ENT: Nose without bleeding or discharge. Oral mucosa moist. NECK: Full ROM without apparent pain. Hyperalgia along the cervical musculature without myofascial spasm or trigger points. RESPIRATORY: Patient with unlabored breathing. No signs of respiratory distress. CHEST/AXILLA: Chest movement symmetrical. No deformities noted. ABDOMEN/GI: No distension BACK: Moves without difficulty. Full ROM. Hyperalgesia along the lumbosacral junction. Moderate tenderness of the left SI joint. No focal midline or facet joint tenderness. No myofascial spasm or trigger points noted. SKIN: [place], warm and dry. No rash noted. MS/EXTREMITY: No swelling, no deformities. Moving extremities appropriately. NEURO: Alert and appears oriented. Speech is fluent. Cranial Nerves are grossly intact. PSYCH: Alert, pleasant, affect is calm Results (Pain Clinic) Diagnostic Review MRI Findings: MR lumbar spine wo con CLINICAL HISTORY: low back pain, left sciatica, loss bladder control. COMPARISON: 09/21/2021 TECHNIQUE: Multiplanar multisequence images of the Lumbar Spine were performed without contrast. FINDINGS: There is no evidence for vertebral body fracture. The heights of the vertebral bodies are maintained. The vertebral bodies are in anatomic alignment. Homogeneous marrow signal is seen without evidence for marrow edema or marrow replacement. T12-L1: The disc space height is maintained. There are no focal disc prot rusions or extrusions identified. The thecal sac and epidural fat are maintained. The neural foramen are patent bilaterally. There is no evidence for nerve root encroachment. The facet joints are within normal limits. L1-2: The disc space height is maintained. There are no focal disc protrusions or extrusions identified. The thecal sac and epidural fat are maintained. The neural foramen are patent bilaterally. There is no evidence for nerve root encroachment. The facet joints are within normal limits. L2-3: The disc space height is maintained. There are no focal disc protrusions or extrusions identified. The thecal sac and epidural fat are maintained. The neural foramen are patent bilaterally. There is no evidence for nerve root encroachment. The facet joints are within normal limits. L3-4: The disc space height is maintained. There are no focal disc protrusions or extrusions identified. The thecal sac and epidural fat are maintained. The neural foramen are patent bilaterally. There is no evidence for nerve root encroachment. The facet joints are within normal limits. L4-5: The disc space height is maintained. There are no focal disc protrusions or extrusions identified. The thecal sac and epidural fat are maintained. The neural foramen are patent bilaterally. There is no evidence for nerve root encroachment. The facet joints are within normal limits. L5-S1: Compared to the previous examination, there is again mild disc space narrowing and disc desiccation there has been interval development of a small central to left paracentral disc protrusion/herniation measuring approximately 4 mm. Due to the increase amount of epidural fat anterior to the thecal sac at this level, no encroachment upon the thecal sac is seen. However, there is impingement upon the left S1 nerve root as it enters the lateral recess. No swelling of the nerve root is seen. The remaining nerve roots appear normal. No foraminal encroachment is seen. The facet joints are within normal limits. IMPRESSION: 1. Compared to the previous examination, there has been slight interval en largement of small central to left paracentral disc protrusion/herniation at L5- S1. This abuts the left S1 nerve root without definite compression or swelling of the nerve root. ACT 112: Negative or not required by law. Electronically signed by: Bertrand Zee M.D. 12/18/2021 9:19 AM MR OF THE CERVICAL SPINE WITHOUT IV CONTRAST CLINICAL HISTORY: neck pain, loss bladder control TECHNIQUE: MRI of the cervical spine is performed utilizing various T1 and T2 sequences in the axial and sagittal planes. IV contrast was not administered for this examination. Comparison: Comparison is made to MRI cervical spine 09/21/2031 FINDINGS: Cervical spine: Vertebral body height and alignment are maintained throughout the cervical spine. The atlantodental articulation appears maintained. No destructive bony lesion is seen. Intervertebral discs: Disks are normal in height and signal. Spinal cord: The cervical spinal cord is normal in morphology and signal intensity. C2-C3: Unremarkable. C3-C4: Unremarkable. C4-C5: Unremarkable. C5-C6: Left greater than right posterior disc bulge is seen. There is mild canal stenosis and left neural foraminal stenosis. C6-C7: Broad-based posterior disc protrusion with mild canal stenosis and no significant neuroforaminal stenosis. C7-T1: Unremarkable. Soft tissues: Unremarkable. Brain parenchyma: Partially imaged brain parenchyma at the skull base is within normal limits. IMPRESSION: Essentially unchanged appearance of posterior disc bulges at C5-C6 and C6-C7 with mild canal stenosis and left neuroforaminal stenosis. ACT 112: Negative or not required by law. Electronically signed by: Mati Sandoval M.D. 12/17/2021 11:[address] Findings: CT lumbar spine wo con CLINICAL HISTORY: back and leg pain COMPARISON STUDY: MR lumbar spine from 12/17/2021 CT DOSE: 717.10 mGy.cm TECHNIQUE: Standard CT of the Lumbar Spine was performed without IV contrast. A dose lowering technique was utilized adhering to the principles of ALARA. FINDINGS: Bones: There is no evidence for an acute fracture or malalignment. The heights of the vertebral bodies are maintained. The vertebral bodies are in anatomic alignment. Disc spaces: There is again mild disc space narrowing at L5-S1 with a small central to left paracentral disc protrusion/herniation also again seen. Facet joints: Mild hypertrophic facet joint disease is present L5-S1. The sacroiliac joints are intact bilaterally. Soft tissues: The prevertebral soft tissues are within normal limits. IMPRESSION: 1. Mild disc space narrowing with small central to left paracentral disc protrusion/herniation is again seen at L5-S1. 2. Mild hypertrophic facet joint disease is also seen at L5-S1. ACT 112: Negative or not required by law. Electronically signed by: Bertrand Zee M.D. 12/18/2021 12:47 PM Radiology Findings: XR lumbar spine min 4V routine CLINICAL HISTORY: Low back pain, down L leg. COMPARISON STUDY: 12/18/2021 TECHNIQUE: 5 Views of the lumbar spine FINDINGS: Bones: There is no evidence for fracture or malalignment. The heights of the vertebral bodies are maintained. There are no lytic or blastic lesions present. Disc spaces: There is again mild disc space narrowing at L5-S1. Facet joints: There is again mild hypertrophic facet joint disease at L5-S1. Soft tissues: The paraspinal soft tissues are within normal limits. IMPRESSION: 1. No acute abnormality. 2. Mild degenerative disc and degenerative facet joint disease is again seen at L5-S1. ACT 112: Negative or not required by law. Electronically signed by: Bertrand Zee M.D. 02/06/2022 11:46 AM THORACIC SPINE 3 VIEWS HISTORY: thoracic back pain COMPARISON: Thoracic spine 01/15/2021. FINDINGS: There is no fracture. No subluxation. Minimal dextroscoliosis of the thoracic spine, unchanged. Paraspinal soft tissues are unremarkable. Minimal degenerative change again noted within the thoracic spine. IMPRESSION: No fracture or subluxation within the thoracic spine. ACT 112: Negative or not required by law. Electronically signed by: Triston Castillo M.D. 12/19/2021 9:46 AM
[2022-02-07] MEDS ORDERED: GABAPENTIN 100 MG CAP PO SCH (09:00)
[2022-02-07] MEDS ORDERED: methylPREDNISolone 4 MG TAB, 6 DAY TAPER PO SCH (09:00)
[2022-02-07] MEDS: methylPREDNISolone 4 MG TAB PO SCH ×2 (12:19→17:00)
--- NOTE | 2022-02-07 19:05 | Billing Data ---
Date of Service February 07, 2022 Coding Level of Care Code 78035 Subseq Obs Care Lvl 3
--- NOTE | 2022-02-07 19:05 | Hospitalist Progress Note ---
Date of Service February 07, 2022 Assessment & Plan Admission and Anticipated Discharge Date Admission Date: February 06, 2022 Results & Data Results & Data ([facility]) Vital Signs (Past 12 Hours) Vital Signs Temp Pulse Resp BP Pulse Ox 02/07/22 07:53 98.6 F 103 H 16 137/85 99 PG Care Time/CCT Total # of Minutes Spent Total Time Spent with Patient: Total time spent is greater than 50% in coordination of care (as documented) at patient's floor/unit and/or counseling patient: Coding Level of Care Code None CPT Codes Musculoskeletal - Musculoskeletal: [address] 1-2 Body regions ([id number])
[2022-02-07] MEDS: GABAPENTIN 400 MG CAP PO SCH (21:00)
[2022-02-07] MEDS: DULoxetine HCL 60 MG CAP PO SCH (21:00)
[2022-02-07] MEDS: diazePAM 5 MG TABLET PO SCH (21:00)
[2022-02-07] MEDS: MAGNESIUM SULFATE / D5W 1 GM/100 ML BAG IV SCH ×2 (21:14→23:20)
[2022-02-07] MEDS: POLYETHYLENE (MIRALAX) 17 GM PACK PO SCH (21:18)
[2022-02-07] MEDS: DICLOFENAC SOD 1% GEL 100 GM TUBE EXT SCH (21:19)
[2022-02-08] MEDS: MAGNESIUM SULFATE / D5W 1 GM/100 ML BAG IV SCH ×2 (01:29→03:21)
[2022-02-08] MEDS: HYDROmorphone INJ 0.5 MG/0.5 ML SYR IV PRN ×6 (01:30→23:57)
[2022-02-08] MEDS: oxyCODONE HCL IR 5 MG TAB (IMMEDIATE RELEASE) PO PRN ×4 (03:25→17:08)
[2022-02-08] MEDS ORDERED: methylPREDNISolone 4 MG TAB PO SCH ×2 (07:00→21:00)
--- NOTE | 2022-02-08 07:00 | Hospitalist Progress Note ---
Date of Service February 08, 2022 Assessment & Plan (1) Intractable back pain: Plan: 26 yo female with PMHx of chronic back pain, anxiety, and depression who presented to the emergency department with a worsening of her low back pain. #Intractable back pain -presented with lumbosacral pain with exacerbation over over left sacroiliac region with radiating numbness/tingling down back of left leg -likely due to biomechanical causes; specifically piriformis muscle spasm given exquisite tenderness to palpation over muscle and radiating symptoms -although MRI during last admission did show mild disc protrusion at L5/S1, this does not appear to be the root cause of her pain -CT A/P (02/06): nonobstructing kidney stones, UA:+calcium oxalate, +blood - Received 0.5 mg IV Dilaudid x3, dexamethasone, Toradol, lidocaine patch in ED with minimal resolution of pain. - Continue home regimen of scheduled baclofen, gabapentin, duloxetine (will from 30 mg to 60 mg), with oxycodone q4h PRN. Cont. IV Toradol 30 mg q6h, IV Dilaudid q4h prn, acetaminophen 650mg q4h, heating pad, lidocaine patches. Cont. valium 5mg qid, voltaren gel. Given 4mg mag IV (02/07). OMT performed over left piriformis and lumbosacral paraspinals. - discontinued solumedrol 02/07 since will likely have minimal to no effect on biomechanical causes of current pain. - Appreciate pain management recommendations. Most recently seen by them on 12/28 for an SI joint injection with some pain relief for about 1 week. - On last admission, patient was evaluated by Dr. Bennett who does not feel that patient is a candidate for surgery at this time as her disc disease is very mild. #Depression -Continue Wellbutrin. -cont. increased Cymbalta from 30mg to 60mg to help with any neuropathic pain #Anxiety -Continue hydroxyzine, Wellbutrin, Cymbalta #Hyperthyroidism -Not currently taking medication for this. -Most recent TSH normal #Constipation -reportedly hasn't had BM since 01/24 -cont. miralax q2h until BM #Urinary retention -was having some difficulty peeing with sensation of urgency -bladder scan showed 350ml, straight cath performed -likely secondary to constipation and sympathetic excitation 2/2 pain -was able to void 500mL late afternoon DVT ppx: SCDs FEN/GI: regular Code Status: full Dispo: med/surg (2) Constipation: (3) Depression: (4) Anxiety: (5) Hyperthyroidism: Admission and Anticipated Discharge Date Admission Date: February 06, 2022 Supervising Physician Co-Signing Physician Notes I personally examined the patient and verified all lowry points of history and exam, discussed case, and agree with decision making with Dr Avial. Pain a little differentmore soreoverall in the same area. Still no significant bowel movement. Now also feels like she cannot void. Later bladder scan noted to be about 400 mL. Vitals noted, in general she is awake and alert pleasant no distress. HEENT normocephalic atraumatic mucous membranes moist. Breathing unlabored no accessory muscle use good effort. Skin shows no rashes no pallor or icterus. MSK/osteopathic structural exam shows left sided pelvic musculature in the region of piriformis high tone, tender, decreased range of motionLAS done personally by myself, post isometric relaxation, as well as LAS done by Dr. Avila, and soft tissue work in the left lumbar paraspinal region done by Dr. Avila under my supervision. Low back painstrongly suspect biomechanical. While she does have a small degree of L5-S1 disc disease on imaging, her symptoms seem to fit much more with piriformis and a little bit of a peripheral sciatica accounting for the numbness that she feels. This does not explain the circumferential whole leg numbness that I found on confrontational light touch, but she has nothing else that really seems BRIM BUSTER relatedso at this point time will manage as the biomechanical strain pattern, and then if the left neck numbness persists can consider brain imaging, although I doubt this will be necessary. Continue aggressive med management for pain control, as well as OMT. Somatic dysfunction pelvic region and lumbar spineOMT as above again done today Anticipated need for ongoing OMT. Constipationnothing appearing to be obstruction on her CTbut she also is now having urinary retentionI certainly wonder if the 2 are related. Escalate bowel regimen. As it relates to the urinary retention, it may be from pelvic fullness from her constipation, may also be from pain/medicationsstraight cath as needed, but hopefully her voiding will improve as her bowels start to move. She does also note dysuria to nursing that she had not mentioned to us, given the urinary retention as well as the dysuria, will treat as UTI. Otherwise as above Subjective Seen at bedside this morning. Slept better last night. More sore this morning than severe pain but still not doing so great. Able to ambulate in room. No BM as of yet. Review of Systems Review of Systems: All systems reviewed & are unremarkable except as noted in Subjective Physical Exam Physical Exam: General: awake, alert, in mild distress sitting in bed HEENT: NCAT, EOMI, moist mucous membranes Chest: CTA bilaterally, normal breath sounds Cardiac: regular rate and rhythm, no murmur, no JVD, normal peripheral pulses, good capillary refill Abdominal: soft, nondistended, nontender to palpation, no guarding Back/Extremities: small healing bruise near left thoracic spine consistent with reported fall on 02/03; mild tenderness along thoracic spine, left low back is tender upon palpation specifically along left piriformis and over lumbosacral region; paraesthesia globally along left leg, exacerbation with straight leg raise on left. Psych: Normal mood and affect Neuro: AAOx3, no motor deficits, speech is clear, no peripheral sensory deficits Skin: no rash or erythema Results & Data Results & Data ([facility]) Vital Signs (Past 12 Hours) Vital Signs Temp Pulse Resp BP Pulse Ox 02/07/22 22:09 36.8 C 94 H 16 124/81 98 Resident Activity Tracking Resident Involvement: Resident Care Provided Care Provided: Adult Hospital Medicine
[2022-02-08] MEDS: GABAPENTIN 100 MG CAP PO SCH ×2 (08:00→12:40)
[2022-02-08] MEDS: buPROPion XL 150 MG TABCR PO SCH (08:00)
[2022-02-08] MEDS: POLYETHYLENE (MIRALAX) 17 GM PACK PO SCH ×2 (08:01→12:40)
[2022-02-08] MEDS: DICLOFENAC SOD 1% GEL 100 GM TUBE EXT SCH ×4 (08:02→21:01)
[2022-02-08] MEDS: diazePAM 5 MG TABLET PO SCH ×4 (08:09→21:00)
[2022-02-08] MEDS: KETOROLAC TROMETHAMINE 15 MG/ML VIAL IV SCH ×3 (09:37→21:00)
[2022-02-08] MEDS: ACETAMINOPHEN 325 MG TAB PO SCH ×4 (09:38→21:01)
[2022-02-08] MEDS ORDERED: POLYETHYLENE (MIRALAX) 17 GM PACK PO ONE (15:30)
--- NOTE | 2022-02-08 19:33 | Billing Data ---
Date of Service February 08, 2022 Coding Level of Care Code 89794 Subseq Obs Care Lvl 3
--- NOTE | 2022-02-08 19:33 | Hospitalist Progress Note ---
Date of Service February 08, 2022 Assessment & Plan Admission and Anticipated Discharge Date Admission Date: February 06, 2022 Results & Data Results & Data ([facility]) Vital Signs (Past 12 Hours) Vital Signs Temp Pulse Resp BP Pulse Ox 02/08/22 14:37 97.7 F 111 H 16 131/91 97 02/08/22 08:45 99.1 F 124 H 16 127/84 97 PG Care Time/CCT Total # of Minutes Spent Total Time Spent with Patient: Total time spent is greater than 50% in coordination of care (as documented) at patient's floor/unit and/or counseling patient: Coding Level of Care Code None CPT Codes Musculoskeletal - Musculoskeletal: [address] 1-2 Body regions ([id number])
[2022-02-08] MEDS: DULoxetine HCL 60 MG CAP PO SCH (21:02)
[2022-02-08] MEDS: GABAPENTIN 400 MG CAP PO SCH (21:02)
[2022-02-08] MEDS: cephALEXin 500 MG CAP PO SCH (22:11)
[2022-02-08] MEDS: hydrOXYzine HCl 25 MG TAB PO PRN (23:57)
[2022-02-09] MEDS: KETOROLAC TROMETHAMINE 15 MG/ML VIAL IV SCH ×4 (04:30→22:17)
[2022-02-09] MEDS ORDERED: methylPREDNISolone 4 MG TAB PO SCH (07:00)
[2022-02-09] MEDS: HYDROmorphone INJ 0.5 MG/0.5 ML SYR IV PRN ×4 (07:29→21:02)
[2022-02-09] MEDS: cephALEXin 500 MG CAP PO SCH ×4 (07:32→21:24)
[2022-02-09] MEDS: buPROPion XL 150 MG TABCR PO SCH (07:32)
[2022-02-09] MEDS: ACETAMINOPHEN 325 MG TAB PO SCH ×4 (07:32→21:24)
[2022-02-09] MEDS: DICLOFENAC SOD 1% GEL 100 GM TUBE EXT SCH ×4 (07:33→21:23)
[2022-02-09] MEDS: CHOLECALCIFEROL 1,000 UNITS 25 MCG TAB PO SCH (07:33)
[2022-02-09] MEDS: GABAPENTIN 100 MG CAP PO SCH ×2 (07:33→13:32)
[2022-02-09] MEDS: diazePAM 5 MG TABLET PO SCH ×4 (08:32→21:28)
[2022-02-09] MEDS ORDERED: bisacodyL 10 MG SUPP PR STA (09:35)
[2022-02-09] MEDS: oxyCODONE HCL IR 5 MG TAB (IMMEDIATE RELEASE) PO PRN ×2 (10:03→14:47)
--- NOTE | 2022-02-09 11:15 | Urology Consultation ---
Date of Consultation February 09, 2022 Assessment & Plan (1) Nephrolithiasis: (2) Urinary retention: 26 year-old female patient admitted secondary to intractable back pain. - Urology consulted for urinary retention. - Plan of care reviewed with Dr. Jeong, on-call urologist. - Urinary retention likely multifactorial including polypharmacy, constipation, pain. - She is afebrile. - Labs reviewed - white count and creatinine stable. - Urine culture final with moderate counts of probable skin tom. On PO Keflex for presumed UTI - reported intermittent dysuria to nursing staff. - CTAP reviewed - Nonobstructing left renal calculi noted but otherwise unremarkable. Plan- - Recommend bladder scan Q6H and straight cath for volumes >300ml. - Can consider Singh catheter placement for persistent retention/repeated straight catheterizations. - Hopefully her voiding will improve as her bowels start to move. - Continue aggressive bowel regimen and supportive care. - Will arrange outpatient follow-up with urology for continued care. - Thank you for allowing us to participate in the acute care of Ms. Leyva. Please reconsult us with additional questions, concerns or changes in patient status. Supervising Physician Co-Signing Physician Notes I have discussed Ms. Leyva's case with LAURA Williamson and agree with the above documentation. Unclear etiology of urinary retention. Most likely it is mediated by constipation, therefore I would recommend an aggressive bowel regimen. UTI is also a possibility and treatment with empiric antibiotics is reasonable. I have lower suspicion for underlying neurologic process, and further evaluation of this would best be performed as an outpatient with urodynamic studies. For now, I would recommend managing urinary retention with bladder scan every 6 hours (sooner if she is having discomfort)and catheterize for her volumes greater than 300 mL. If she does not tolerate intermittent catheterization, a Singh catheter could be placed, although this would have a higher risk of urinary tract infection. Urology will sign off for now and arrange outpatient follow-up, please contact us with any questions or concerns. History of Present Illness Reason for Consultation: urinary retention, unclear etiology Attending Physician: Dung Terry DO History of Present Illness 26 year-old female patient, with past medical history significant for chronic back pain and anxiety/depression who presented to the emergency department with worsening of her low back pain. Patient admitted to hospital medicine service for intractable back pain. Urology consulted for urinary retention. Patient known to [facility] urology service, followed with practice for history of stones. Chart review: Afebrile, Wbc 10.08, Hgb 13.8, Creatinine 0.73 Urinalysis 02/06 - +1 leukocytes, 5-10 wbc, 10-30 rbc, >30 epi, +2 bacteria, + calcium oxalate crystals Urine culture with three types of organisms, all moderate counts probable skin tom. Patient currently on PO Keflex for presumed UTI - reported intermittent dysuria to nursing staff. Imaging - CT abd/pelvis without con IMPRESSION: 1. Nonobstructing left renal calculi are again seen. 2. Otherwise, no acute intra-abdominal or pelvic abnormality on these limited noncontrast images. Pt examined at bedside this afternoon. Awake, sitting up in bed on arrival. No acute distress. Still with low back pain. Denies suprapubic/abdominal pain at present. No fevers or chills. Tolerating diet, no nausea or vomiting. Still no BM, but continues on aggressive bowel regimen. Reports last BM was 01/24. Patient with reports of difficulty urinating with sensation of urgency and frequency. Bladder scan yesterday revealed 350 ml, straight cath performed. She was then able to void 500 ml later in the afternoon. She was bladder scanned this morning due to not being able to urinate - 331 ml. Subsequently straight cathed for 600 ml. She is on a number of medications for lumbar discomfort and has been seen by pain management for persistent lumbar pain. Offered no additional complaints at time of exam. Allergies Allergy/AdvReac Type Severity Reaction Status Date / Time No Known Allergies Allergy Verified 02/06/22 15:38 Home Medications Medication Instructions Recorded Confirmed Type bupropion HCl 150 mg 24 hr tablet, 150 mg PO QAM 05/27/21 02/06/22 History extended release (Wellbutrin XL) baclofen 10 mg tablet 10 mg PO TID #30 tab 11/28/21 02/06/22 Rx desogestrel 0.15 mg-ethinyl 1 tab PO QAM 12/17/21 02/06/22 History estradiol 0.03 mg tablet (Apri) cholecalciferol (vitamin D3) 1,250 50,000 unit PO WK 01/12/22 02/06/22 History mcg (50,000 unit) capsule hydroxyzine pamoate 25 mg capsule 25 mg PO QPM PRN 01/12/22 02/06/22 History (Vistaril) metoclopramide HCl 10 mg tablet 10 mg PO UD PRN 01/12/22 02/06/22 History (Reglan) hydrocodone 5 mg-acetaminophen 325 1 tab PO Q4H PRN #10 tab 01/17/22 02/06/22 Rx mg tablet duloxetine 30 mg capsule,delayed 30 mg PO HS #90 cap 01/20/22 02/06/22 Rx release gabapentin 400 mg capsule 400 mg PO PM #30 cap 02/03/22 02/06/22 Rx oxycodone 5 mg tablet 5 mg PO Q12H PRN #40 tab 02/03/22 02/06/22 Rx gabapentin 100 mg capsule 100 mg PO .AM & MIDDAY 02/06/22 02/06/22 History Patient History Medical History Anxiety Herniated disc LUMBAR AND CERVICAL (FULL ROM) History of kidney stones Sacroiliac joint pain Vitamin D deficiency HX, ? CURRENT STATUS Surgical History History of breast lump/mass excision (01/17/22) Excision of left breast mass. Dr. Jason 01/17/2022 Nasal fracture Repair of nasal fracture S/P cystoscopy with ureteral stent placement 12/05/20 Dr. Lamont Ambrose- Cystoscopy, Left ureteroscopy, Laser lithotripsy, Stone basket extraction of stone, Left retrograde pyelogram, Left ureteral stent placement Family History Mother Breast cancer Other Cancer Hypertension Kidney stones Denies family history of Ovarian cancer Prostate cancer Heart disease Myocardial infarction Colorectal cancer Social History Smoking Status: Never smoker Second Hand Exposure: No; Hx Alcohol Use: Yes Alcohol type: wine and hard liquor Hx Substance Use: No Preferred Language: Romansh Communication Ability: Effective Visual Impairment: No Limitations Hearing Ability: Normal Clinical Transformation Specialist Required: No Beliefs That Will Affect Care: None marital status: Single Current Living Situation: Family Current Living Situation Comment: [facility] current occupational status: employed 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 @ [employer] How many Children do You have: 1 Other Information That Helps Us Care for You: No Feels Safe at Home: Yes Safety Concerns: Feels Safe At This Time Childhood Exposure to Second-Hand Smoke: No during the past year weight has: increased > 10 lbs Physical Activity Frequency: Daily Seatbelt Use: always Sunscreen Use: Yes Assistive Devices: None Review of Systems Review of Systems: All systems reviewed & are unremarkable except as noted in HPI & below Physical Exam Constitutional: well developed and well nourished; no acute distress and not ill appearing Neck: normal visual inspection Respiratory: normal respiratory effort and able to speak in complete sentences; no labored breathing and no audible wheezes Gastrointestinal (Abdomen): Inspection/Auscultation: abdomen normal to inspection; abdomen not distended Musculoskeletal: Head/Neck/Chest: normocephalic Skin: No visible rashes or lesions to exposed skin areas Neurologic: moves all extremities and awake Psychiatric: Orientation: alert, oriented x 3 and cooperative Results & Data ([facility]) Vital Signs (Past 12 Hours) Vital Signs Temp Pulse Resp BP Pulse Ox 02/09/22 07:28 37.3 C 86 18 130/86 99 PG Care Time/CCT Total # of Minutes Spent Total Time Spent with Patient: Total time spent is greater than 50% in coordination of care (as documented) at patient's floor/unit and/or counseling patient: Coding Level of Care Code 61471 Inpt Consult Level 3 Diagnoses Nephrolithiasis N20.0 Urinary retention R33.9
--- NOTE | 2022-02-09 18:00 | Hospitalist Progress Note ---
Date of Service February 09, 2022 Assessment & Plan (1) Intractable back pain: Plan: 26 yo female with PMHx of chronic back pain, anxiety, and depression who presented to the emergency department with a worsening of her low back pain. #Intractable back pain -presented with lumbosacral pain with exacerbation over over left sacroiliac region with radiating numbness/tingling down back of left leg -likely due to biomechanical causes; specifically piriformis muscle spasm given exquisite tenderness to palpation over muscle and radiating symptoms -although MRI during last admission did show mild disc protrusion at L5/S1, this does not appear to be the root cause of her pain -CT A/P (02/06): nonobstructing kidney stones, UA:+calcium oxalate, +blood - Received 0.5 mg IV Dilaudid x3, dexamethasone, Toradol, lidocaine patch in ED with minimal resolution of pain. - Continue home regimen of scheduled baclofen, gabapentin, duloxetine (will from 30 mg to 60 mg), with oxycodone q4h PRN. Cont. IV Toradol 30 mg q6h, IV Dilaudid q4h prn, acetaminophen 650mg q4h, heating pad, lidocaine patches. Cont. valium 5mg qid, voltaren gel. Given 4mg mag IV (02/07). OMT performed over left piriformis and lumbosacral paraspinals 02/07-02/08. - discontinued solumedrol 02/07 since will likely have minimal to no effect on biomechanical causes of current pain. - Appreciate pain management recommendations. Most recently seen by them on 12/28 for an SI joint injection with some pain relief for about 1 week. - On last admission, patient was evaluated by Dr. Bennett who does not feel that patient is a candidate for surgery at this time as her disc disease is very mild. #Depression -Continue Wellbutrin. -cont. increased Cymbalta from 30mg to 60mg to help with any neuropathic pain #Anxiety -Continue hydroxyzine, Wellbutrin, Cymbalta #Hyperthyroidism -Not currently taking medication for this. -Most recent TSH normal #Constipation -reportedly hadn't had BM since 01/24 -was on miralax sierra and dulcolax suppository, had 3 BMs this afternoon #Urinary retention -was having some difficulty peeing with sensation of urgency -bladder scan showed 350ml, straight cath performed (02/08) -straight cath performed again today, 600mL -keflex started for potential UTI, although urine cx was negative -urology consulted: likely multifactorial including polypharmacy, constipation, pain; agree. DVT ppx: SCDs FEN/GI: regular Code Status: full Dispo: med/surg (2) Constipation: (3) Depression: (4) Anxiety: (5) Hyperthyroidism: Admission and Anticipated Discharge Date Admission Date: February 08, 2022 Supervising Physician Co-Signing Physician Notes I personally examined the patient and verified all lowry points of history and exam, discussed case, and agree with decision making with Dr Avila. Back pain persists, but still no bowel movement, and cannot voidhas needed straight catheterization multiple times. Has no numbness in her groin, and is walking around the room without difficulty. Vitals noted, in general she appears somewhat uncomfortable and fatigued. HEENT normocephalic atraumatic mucous membranes moist. Breathing unlabored no accessory muscle use good effort. Skin shows no rashes no pallor or icterus. Neuro with no focal deficits. OMT foregone today given having done it 2 days in a row, and she has significant bladder discomfort. No saddle anesthesia, no motor weakness lower extremities. Low back painstrongly suspect biomechanical. While she does have a small degree of L5-S1 disc disease on imaging, her symptoms seem to fit much more with piriformis and a little bit of a peripheral sciatica accounting for the numbness that she feels. 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 Continue aggressive med management for pain control, as well as OMT. (Held off today due to bladder issues and discomfort otherwise) Urinary retentionsuspect pain, constipation, med side effect, and effects from possible UTIbut it does seem a little bit odd but an otherwise young healthy female would have urinary retentionto urology for evaluation. Input appr eciated. To be clear, with no motor weakness and no saddle anesthesia, I do not see anything concerning for cauda equina Somatic dysfunction pelvic region and lumbar spineOMT to be ongoing Constipationcontinue aggressive bowel regimen Otherwise as above Subjective Seen at bedside today. Had not had BM as of this morning. Given suppository at noon and had 3 BMs in afternoon. Also had to be straight cathed again today for urinary retention. Still has alot of back pain. Review of Systems 2 Review of Systems: All systems reviewed & are unremarkable except as noted in Subjective Physical Exam Physical Exam: General: awake, alert, in mild distress sitting in bed HEENT: NCAT, EOMI, moist mucous membranes Chest: CTA bilaterally, normal breath sounds Cardiac: RRR, no murmur Abdominal: soft, nondistended, nontender to palpation, no guarding Back/Extremities: small healing bruise near left thoracic spine consistent with reported fall on 02/03; mild tenderness along thoracic spine, left low back is tender upon palpation specifically along left piriformis and over lumbosacral region; paraesthesia globally along left leg, exacerbation with straight leg raise on left. Psych: Normal mood and affect Neuro: AAOx3, no motor deficits, speech is clear, no peripheral sensory deficits Skin: no rash or erythema Results & Data Results & Data ([facility]) Vital Signs (Past 12 Hours) Vital Signs Temp Pulse Resp BP Pulse Ox 02/09/22 15:41 37 C 138 H 18 129/92 98 02/09/22 07:28 37.3 C 86 18 130/86 99 Resident Activity Tracking Resident Involvement: Resident Care Provided Care Provided: Adult [facility] Medicine
--- NOTE | 2022-02-09 20:47 | Billing Data ---
Date of Service February 09, 2022 Coding Level of Care Code 71058 Subseq Hosp Care Lvl 3
[2022-02-09] MEDS: POLYETHYLENE (MIRALAX) 17 GM PACK PO SCH (21:04)
[2022-02-09] MEDS: GABAPENTIN 400 MG CAP PO SCH (21:24)
[2022-02-09] MEDS: DULoxetine HCL 60 MG CAP PO SCH (21:24)
[2022-02-10] MEDS: KETOROLAC TROMETHAMINE 15 MG/ML VIAL IV SCH ×4 (03:33→22:08)
[2022-02-10] MEDS: HYDROmorphone INJ 0.5 MG/0.5 ML SYR IV PRN ×5 (06:27→22:35)
[2022-02-10] MEDS ORDERED: methylPREDNISolone 4 MG TAB PO SCH (07:00)
[2022-02-10] MEDS: GABAPENTIN 100 MG CAP PO SCH ×2 (07:48→14:03)
[2022-02-10] MEDS: diazePAM 5 MG TABLET PO SCH ×4 (07:48→22:06)
[2022-02-10] MEDS: buPROPion XL 150 MG TABCR PO SCH (07:48)
[2022-02-10] MEDS: CHOLECALCIFEROL 1,000 UNITS 25 MCG TAB PO SCH (07:48)
[2022-02-10] MEDS: ACETAMINOPHEN 325 MG TAB PO SCH ×4 (07:48→20:14)
[2022-02-10] MEDS: DICLOFENAC SOD 1% GEL 100 GM TUBE EXT SCH ×4 (07:48→22:07)
[2022-02-10] MEDS: cephALEXin 500 MG CAP PO SCH ×4 (07:48→22:07)
[2022-02-10] MEDS: oxyCODONE HCL IR 5 MG TAB (IMMEDIATE RELEASE) PO PRN ×3 (11:04→20:13)
[2022-02-10] MEDS: PHENAZOPYRIDINE HCL 200 MG TAB PO PRN ×2 (12:22→20:15)
[2022-02-10] MEDS ORDERED: POLYETHYLENE (MIRALAX) 17 GM PACK PO STA (17:10)
--- NOTE | 2022-02-10 17:18 | Hospitalist Progress Note ---
Date of Service February 10, 2022 Assessment & Plan (1) Intractable back pain: Plan: 26 yo female with PMHx of chronic back pain, anxiety, and depression who presented to the emergency department with a worsening of her low back pain. #Intractable back pain -presented with lumbosacral pain with exacerbation over over left sacroiliac region with radiating numbness/tingling down back of left leg -likely due to biomechanical causes; specifically piriformis muscle spasm given exquisite tenderness to palpation over muscle and radiating symptoms -although MRI during last admission did show mild disc protrusion at L5/S1, this does not appear to be the root cause of her pain -CT A/P (02/06): nonobstructing kidney stones, UA:+calcium oxalate, +blood -HLA-B12 negative - Received 0.5 mg IV Dilaudid x3, dexamethasone, Toradol, lidocaine patch in ED with minimal resolution of pain. - Continue home regimen of scheduled baclofen, gabapentin, duloxetine (will from 30 mg to 60 mg), with oxycodone q4h PRN. Cont. IV Toradol 30 mg q6h, IV Dilaudid q4h prn, acetaminophen 650mg q4h, heating pad, lidocaine patches. Cont. valium 5mg qid, voltaren gel. Given 4mg mag IV (02/07). OMT performed over left piriformis and lumbosacral paraspinals, cont. - discontinued solumedrol 02/07 since will likely have minimal to no effect on biomechanical causes of current pain. - Appreciate pain management recommendations. Most recently seen by them on 12/28 for an SI joint injection with some pain relief for about 1 week. - On last admission, patient was evaluated by Dr. Bennett who does not feel that patient is a candidate for surgery at this time as her disc disease is very mild. #Depression -Continue Wellbutrin. -cont. increased Cymbalta from 30mg to 60mg to help with any neuropathic pain #Anxiety -Continue hydroxyzine, Wellbutrin, Cymbalta #Hyperthyroidism -Not currently taking medication for this. -Most recent TSH normal #Constipation -reportedly hadn't had BM since 01/24 -having multiple BMs with doculax suppository, miralax -cont. miralax #Urinary retention -was having some difficulty peeing with sensation of urgency -bladder scan showed 350ml, straight cath performed (02/08) -callaway placed overnight, good urine output, will continue overnight -cont. keflex for potential UTI, urine cx was negative -urology consulted (02/09): likely multifactorial including polypharmacy, constipation, pain; agree. -Pyridium for bladder pain DVT ppx: SCDs FEN/GI: regular Code Status: full Dispo: med/surg (2) Constipation: (3) Depression: (4) Anxiety: (5) Hyperthyroidism: Admission and Anticipated Discharge Date Admission Date: February 08, 2022 Supervising Physician Co-Signing Physician Notes I personally examined the patient and verified all lowry points of history and exa m, discussed case, and agree with decision making with Dr Avila. Back pain persists, but is a little different and also some L lumbar paraspinal pain. needed callaway vitals noted nad at rest but does appear uncomfortable w movement some. ost/msk L sided pelvic musculature/region of piriformis high tone/tender/decreased ROM - LAS - improved some. L sided Lspine paraspinals high tone/tender/decreased ROM - direct myofascial - improved some. pt tolerated well. Low back painstrongly suspect biomechanical. While she does have a small degree of L5-S1 disc disease on imaging, her symptoms seem to fit much more with piriformis and a little bit of a peripheral sciatica accounting for the numbness that she feels. 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 Continue aggressive med management for pain control, as well as OMT. change in pain pattern reassuring as this is often what is seen when a biomechanical pattern starts to improve Urinary retentionsuspect pain, constipation, med side effect, and effects from possible UTIcontinue callaway drainage for now. by tomorrow will start to space out oxycodone more and will switch valiumm back to baclofen, will have had another day on bowel regimen, and possible UTI will have had another day of treatment Somatic dysfunction pelvic region and lumbar spineOMT as above Constipationcontinue aggressive bowel regimen Otherwise as above Subjective Seen at bedside today. 2 more BMs today after having more miralax last night. Did have callaway placed overnight for urinary retention. Does have some burning sensation near her bladder. Back more sore than painful but still in pain. Review of Systems Review of Systems: All systems reviewed & are unremarkable except as noted in Subjective Physical Exam Physical Exam: General: awake, alert, in mild distress sitting in bed HEENT: NCAT, EOMI, moist mucous membranes Chest: CTA bilaterally, normal breath sounds Cardiac: RRR, no murmur Abdominal: soft, nondistended, nontender to palpation, no guarding Back/Extremities: small healing bruise near left thoracic spine consistent with reported fall on 02/03; mild tenderness along thoracic spine, left low back is tender upon palpation specifically along left piriformis and over lumbosacral region; paraesthesia globally along left leg, exacerbation with straight leg raise on left. Psych: Normal mood and affect Neuro: AAOx3, no motor deficits, speech is clear, no peripheral sensory deficits Skin: no rash or erythema Results & Data Results & Data ([facility]) Vital Signs (Past 12 Hours) Vital Signs Temp Pulse Pulse Resp BP Pulse Ox 02/10/22 15:52 36.5 C 104 H 18 126/82 95 02/10/22 11:00 122 H 02/10/22 07:20 36.6 C 72 18 113/74 98 Laboratory Results 02/07/22 Range/Units 06:00 HLA-B27 NEGATIVE (NEGATIVE) Resident Activity Tracking Resident Involvement: Resident Care Provided Care Provided: Adult [facility] Medicine
--- NOTE | 2022-02-10 17:31 | Hospitalist Progress Note ---
Date of Service February 10, 2022 Assessment & Plan Admission and Anticipated Discharge Date Admission Date: February 08, 2022 Results & Data Results & Data ([facility]) Vital Signs (Past 12 Hours) Vital Signs Temp Pulse Pulse Resp BP Pulse Ox 02/10/22 15:52 97.7 F 104 H 18 126/82 95 02/10/22 11:00 122 H 02/10/22 07:20 97.9 F 72 18 113/74 98 PG Care Time/CCT Total # of Minutes Spent Total Time Spent with Patient: Total time spent is greater than 50% in coordination of care (as documented) at patient's floor/unit and/or counseling patient: Coding Level of Care Code None CPT Codes Musculoskeletal - Musculoskeletal: [address] 1-2 Body regions ([id number])
--- NOTE | 2022-02-10 17:31 | Billing Data ---
Date of Service February 10, 2022 Coding Level of Care Code 41229 Subseq Hosp Care Lvl 3
[2022-02-10] MEDS: GABAPENTIN 400 MG CAP PO SCH (22:06)
[2022-02-10] MEDS: POLYETHYLENE (MIRALAX) 17 GM PACK PO SCH (22:07)
[2022-02-10] MEDS: DULoxetine HCL 60 MG CAP PO SCH (22:08)
[2022-02-11] MEDS: oxyCODONE HCL IR 5 MG TAB (IMMEDIATE RELEASE) PO PRN ×4 (01:46→19:41)
[2022-02-11] MEDS: HYDROmorphone INJ 0.5 MG/0.5 ML SYR IV PRN ×5 (03:58→22:32)
[2022-02-11] MEDS: KETOROLAC TROMETHAMINE 15 MG/ML VIAL IV SCH ×4 (03:58→21:49)
--- NOTE | 2022-02-11 06:57 | Hospitalist Progress Note ---
Date of Service February 11, 2022 Assessment & Plan (1) Intractable back pain: Plan: 26 yo female with PMHx of chronic back pain, anxiety, and depression who presented to the emergency department with a worsening of her low back pain. #Intractable back pain -presented with lumbosacral pain with exacerbation over over left sacroiliac region with radiating numbness/tingling down back of left leg -likely due to biomechanical causes; specifically piriformis muscle spasm given exquisite tenderness to palpation over muscle and radiating symptoms -although MRI during last admission did show mild disc protrusion at L5/S1, this does not appear to be the root cause of her pain -CT A/P (02/06): nonobstructing kidney stones, UA:+calcium oxalate, +blood - HLA-B12 negative - Received 0.5 mg IV Dilaudid x3, dexamethasone, Toradol, lidocaine patch in ED with minimal resolution of pain. - Continue home regimen of scheduled gabapentin, duloxetine (will from 30 mg to 60 mg). Cont. IV Toradol 30 mg q6h, acetaminophen 650mg q4h, heating pad, voltar en gel. -Weaning pain medications to help with urinary retention, constipation, and reduce chance of hyperalgesia. Decreased to IV dilaudid q6h, baclofen 20mg qid (d/c'd valium), oxycodone 10mg q6h. -cont. OMT treatments direct myofasical and LAS over piriformis and lower lumbar -TENS unit treatment started as well - Appreciate pain management recommendations. Most recently seen by them on 12/28 for an SI joint injection with some pain relief for about 1 week. - On last admission, patient was evaluated by Dr. Bennett who does not feel that patient is a candidate for surgery at this time as her disc disease is very mild. #Depression -Continue Wellbutrin. -cont. increased Cymbalta from 30mg to 60mg to help with any neuropathic pain #Anxiety -Continue hydroxyzine, Wellbutrin, Cymbalta #Hyperthyroidism -Not currently taking medication for this. -Most recent TSH normal #Constipation -reportedly hadn't had BM since 01/24 -having multiple BMs with doculax suppository, miralax -cont. miralax -consider KUB to reassess amount of stool #Urinary retention -was having some difficulty peeing with sensation of urgency -bladder scan showed 350ml, straight cath performed (02/08) -cont. keflex for potential UTI, urine cx was negative -urology consulted (02/09): likely multifactorial including polypharmacy, constipation, pain; agree. -Pyridium for bladder pain -d/c'd callaway, voiding trial DVT ppx: SCDs FEN/GI: regular Code Status: full Dispo: med/surg (2) Constipation: (3) Depression: (4) Anxiety: (5) Hyperthyroidism: Admission and Anticipated Discharge Date Admission Date: February 08, 2022 Supervising Physician Co-Signing Physician Notes I personally examined the patient and verified all lowry points of history and exam, discussed case, and agree with decision making with Dr Avila. Feels like pain today is as bad as it was whenever she was in the ER. Dysuria is better. Later able to void without Callaway. Has a TENS unit with her vitals noted nad at rest but does appear uncomfortable w movement some. Showed her how to apply the TENS unit, placed it across piriformis and left lumbar paraspinal musculature, and helped her get it started. Low back painstrongly suspect biomechanical. While she does have a small degree of L5-S1 disc disease on imaging, her symptoms seem to fit much more with piriformis and a little bit of a peripheral sciatica accounting for the numbness that she feels. This does not explain the circumferential whole leg numbness that I found on confrontational light touch, but she has nothing else that really seems WOOD INSPECTOR relatedmanaging biomechanical strain pattern, and then if the left neck numbness persists can consider brain imaging, although I doubt this will be necessary. Continue aggressive med management for pain control, as well as OMT. change in pain pattern reassuring as this is often what is seen when a biomechanical pattern starts to improve. TENS unit today. Try to start to space out narcoticsI do worry a little given that her pain shifted but then worsened subjectively with objective findings seeming like things are improving that she could have a degree of narcotics hyperalgesia. Switch Valium over to baclofen as I wonder if the Valium was part of the urinary retention, and the baclofen will also be safer to continue at home Urinary retentionsuspect pain, constipation, med side effect, and effects from possible UTIdid well with voiding trial Somatic dysfunction pelvic region and lumbar spineOMT done throughout her stay, anticipate need for outpatient OMT as well Constipationcontinue aggressive bowel regimen Otherwise as above Subjective Seen at bedside today. Continues to have BMs but unsure if still constipated. Still has callaway in place. Burning sensation in bladder improved. Still in a lot of pain but more localized to low lumbar region. Review of Systems Review of Systems: All systems reviewed & are unremarkable except as noted in Subjective Physical Exam Physical Exam: General: awake, alert, in mild distress sitting in bed HEENT: NCAT, EOMI, moist mucous membranes Chest: CTA bilaterally, normal breath sounds Cardiac: RRR, no murmur Abdominal: soft, nondistended, nontender to palpation, no guarding Back/Extremities: small healing bruise near left thoracic spine consistent with reported fall on 02/03; mild tenderness along thoracic spine, left low back is tender upon palpation specifically along left piriformis and over lumbosacral region; paraesthesia globally along left leg, exacerbation with straight leg raise on left. Psych: Normal mood and affect Neuro: AAOx3, no motor deficits, speech is clear, no peripheral sensory deficits Skin: no rash or erythema Results & Data Results & Data ([facility]) Vital Signs (Past 12 Hours) Vital Signs Temp Pulse Resp BP Pulse Ox 02/10/22 22:00 36.4 C L 95 H 16 126/83 96 Resident Activity Tracking Resident Involvement: Resident Care Provided Care Provided: Adult Hospital Medicine
[2022-02-11] MEDS ORDERED: methylPREDNISolone 4 MG TAB PO SCH (07:00)
[2022-02-11] MEDS: ACETAMINOPHEN 325 MG TAB PO SCH ×4 (09:02→21:48)
[2022-02-11] MEDS: diazePAM 5 MG TABLET PO SCH (09:02)
[2022-02-11] MEDS: DICLOFENAC SOD 1% GEL 100 GM TUBE EXT SCH ×4 (09:03→21:49)
[2022-02-11] MEDS: GABAPENTIN 100 MG CAP PO SCH ×2 (09:03→13:49)
[2022-02-11] MEDS: buPROPion XL 150 MG TABCR PO SCH (09:03)
[2022-02-11] MEDS: cephALEXin 500 MG CAP PO SCH ×4 (09:03→21:48)
[2022-02-11] MEDS: CHOLECALCIFEROL 1,000 UNITS 25 MCG TAB PO SCH (09:03)
[2022-02-11] MEDS ORDERED: POLYETHYLENE (MIRALAX) 17 GM PACK PO PRN (09:27)
[2022-02-11] MEDS: PHENAZOPYRIDINE HCL 200 MG TAB PO PRN (10:46)
[2022-02-11] MEDS ORDERED: oxyCODONE HCL IR 5 MG TAB (IMMEDIATE RELEASE) PO PRN (12:40)
[2022-02-11] MEDS: BACLOFEN 20 MG TAB PO SCH ×3 (15:21→21:49)
--- NOTE | 2022-02-11 18:34 | Billing Data ---
Date of Service February 11, 2022 Coding Level of Care Code 75636 Subseq Hosp Care Lvl 3
[2022-02-11] MEDS: POLYETHYLENE (MIRALAX) 17 GM PACK PO SCH (21:42)
[2022-02-11] MEDS: hydrOXYzine HCl 25 MG TAB PO PRN (21:47)
[2022-02-11] MEDS: DULoxetine HCL 60 MG CAP PO SCH (21:48)
[2022-02-11] MEDS: GABAPENTIN 400 MG CAP PO SCH (21:48)
[2022-02-12] MEDS: HYDROmorphone INJ 0.5 MG/0.5 ML SYR IV PRN (04:36)
[2022-02-12] MEDS: KETOROLAC TROMETHAMINE 15 MG/ML VIAL IV SCH ×4 (04:36→20:15)
[2022-02-12] MEDS: oxyCODONE HCL IR 5 MG TAB (IMMEDIATE RELEASE) PO PRN (04:50)
--- NOTE | 2022-02-12 06:55 | Hospitalist Progress Note ---
Date of Service February 12, 2022 Assessment & Plan (1) Intractable back pain: Plan: 26 yo female with PMHx of chronic back pain, anxiety, and depression who presented to the emergency department with a worsening of her low back pain. #Intractable back pain -presented with lumbosacral pain with exacerbation over over left sacroiliac region with radiating numbness/tingling down back of left leg -likely due to biomechanical causes; specifically piriformis muscle spasm given exquisite tenderness to palpation over muscle and radiating symptoms -although MRI during last admission did show mild disc protrusion at L5/S1, this does not appear to be the root cause of her pain -CT A/P (02/06): nonobstructing kidney stones, UA:+calcium oxalate, +blood -HLA-B12 negative -MRI lumbar (02/12): no changes from 12/17/2021, minimal degenerative disc disease at L5-S1 -MRI pelvis (02/12): intramuscular edema left gluteus at myotendinous junction. -labs unremarkable -Pain worsened overnight, regimen adjusted: -Continue home regimen of scheduled gabapentin, duloxetine (inc from 30 mg to 60 mg). -Cont. IV Toradol 30 mg q6h, acetaminophen 650mg q4h, heating pad, voltaren gel, baclofen 20mg qid. -TENS unit treatment -hold OMT treatments; previously tx with direct myofasical and LAS over piriformis and lower lumbar -SPEECH LANGUAGE PATHOLOGIST ASSISTANT dilauded 0.25 q15min, d/c'd oxy and IV dilaudid -consider trigger point injections for piriformis and lumbar paraspinals - Appreciate pain management recommendations. Most recently seen by them on 12/28 for an SI joint injection with some pain relief for about 1 week. - On last admission, patient was evaluated by Dr. Bennett who does not feel that patient is a candidate for surgery at this time as her disc disease is very mild. - MRI findings suggest inflammation of gluteus lorrie but clinically appears to be at piriformis. Will reach out to pain management for possible trigger point injection of piriformis muscle as well as readjustment of pain medications. #Depression -Continue Wellbutrin. -cont. increased Cymbalta from 30mg to 60mg to help with any neuropathic pain #Anxiety -Continue hydroxyzine, Wellbutrin, Cymbalta #Hyperthyroidism -Not currently taking medication for this. -Most recent TSH normal #Constipation, improving -reportedly hadn't had BM since 01/24 -having multiple BMs with doculax suppository, miralax -cont. miralax -consider KUB to assess amount of stool #Urinary retention, resolved -was having some difficulty peeing with sensation of urgency -bladder scan showed 350ml, straight cath performed (02/08) -cont. keflex for potential UTI, urine cx was negative -urology consulted (02/09): likely multifactorial including polypharmacy, constipation, pain; agree. -Pyridium for bladder pain -voiding appropriately since callaawy removal (02/11) DVT ppx: SCDs FEN/GI: regular Code Status: full Dispo: med/surg (2) Constipation: (3) Depression: (4) Anxiety: (5) Hyperthyroidism: Admission and Anticipated Discharge Date Admission Date: February 08, 2022 Supervising Physician Co-Signing Physician Notes I personally examined the patient and verified all lowry points of history and exam, discussed case, and agree with decision making with Dr Avila. Pain much worse. Saw twice todayin the morning outlined plan of care, prior to Dilaudid being given. Later after MRI to review results, with SPEECH LANGUAGE PATHOLOGIST ASSISTANT up she is much more comfortable. vitals noted, initially appearing uncomfortable, later much more calm and in no distress. HEENT normocephalic atraumatic mucous membranes moist. Breathing unlabored no accessory muscle use good effort. Skin shows no rashes no pallor or icterus. Neuro without focal deficits. Low back painalmost certainly biomechanical. Given that it is very common for somebody to have a shift in their pain pattern and sometimes feel a bit worse before they feel better when OMT is deployed to treat the biomechanical strain, her first couple days of changing/worsening was not surprising, but given that the worsening was even more noticeable today, I was a little concerned as to whether or not she might have something underlying that was driving the biomechanical dysfunctionsuch as being very unlocking and having an abscess in her SI joint from the site of infectionwhile this was unlikely, before moving forward with assuming that it is still biomechanical pain, and some chronic pain neurophysiology may be at play as well, I wanted to rule out other offending causesMRI is reassuringactually even shows evidence of muscle spasm which is quite surprising, inflammatory markers reassuring. -Continue periodic OMT -Will ask pain management tomorrow if they felt a piriformis range trigger point injection may be helpful, and if so if it could be done at the bedside versus better done under ultrasound in the office -Continue Tylenol/Toradol scheduled -Dilaudid SPEECH LANGUAGE PATHOLOGIST ASSISTANT for now to break the pain cycle -Baclofen as a muscle relaxant -Have discussed with patient multiple times this would likely be a long road to recovery, but I would anticipate that with ongoing appropriate biomechanical care she will show long-term improvement Urinary retentionsuspect pain, constipation, med side effect, and effects from possible UTIdid well with voiding trial and for now this appears to have resolved Somatic dysfunction pelvic region and lumbar spineOMT done throughout her stay, anticipate need for outpatient OMT as well Constipationcontinue aggressive bowel regimen Otherwise as above Subjective Seen at bedside today. Callaway removed yesterday. Has been voiding appropriately since. Continued BMs on miralax. Says pain is as bad as on admission. Needed more pain control overnight. Review of Systems Review of Systems: All systems reviewed & are unremarkable except as noted in Subjective Physical Exam Physical Exam: General: awake, alert, in mild distress HEENT: NCAT, EOMI, moist mucous membranes Chest: CTA bilaterally, normal breath sounds Cardiac: RRR, no murmur Abdominal: soft, nondistended, nontender to palpation, no guarding Back/Extremities: small healing bruise near left thoracic spine consistent with reported fall on 02/03; mild tenderness along thoracic spine, left low back is tender upon palpation specifically along left piriformis and over lumbosacral region; paraesthesia globally along left leg, exacerbation with straight leg raise on left. Psych: Normal mood and affect Neuro: AAOx3, no motor deficits, speech is clear, no peripheral sensory deficits Skin: no rash or erythema Results & Data Results & Data ([place]) Vital Signs (Past 12 Hours) Vital Signs Temp Pulse Resp BP Pulse Ox 02/11/22 22:43 37.0 C 92 H 18 119/72 98 Laboratory Results 02/12/22 02/12/22 02/12/22 Range/Units 10:30 10:30 10:30 WBC 7.84 (4.8-10.8) K/uL RBC 4.52 (4.2-5.4) M/uL Hgb 13.3 (12.0-16.0) g/dL Hct 40.6 (37-47) % MCV 89.8 (80-100) fL MCH 29.4 (25-34) pg MCHC 32.8 (32-36) g/dL RDW Std Deviation 41.0 (36.4-46.3) fL RDW Coeff of Baldo 12.6 (11.5-14.5) % Plt Count 247 (130-400) K/uL MPV 9.9 (7.4-10.4) fL Immature Gran % (Auto) 0.3 % Neut % (Auto) 60.3 % Lymph % (Auto) 28.8 % [place] % (Auto) 9.2 % Eos % (Auto) 1.3 % Baso % (Auto) 0.1 % Neut # (Auto) 4.73 (1.4-6.5) K/uL Lymph # (Auto) 2.26 (1.2-3.4) K/uL [place] # (Auto) 0.72 H (0.11-0.59) K/uL Eos # (Auto) 0.10 (0-0.5) K/uL Baso # (Auto) 0.01 (0-0.2) K/uL Immature Gran # (Auto) 0.02 (0.00-0.02) K/uL ESR 17 (0-20) mm/hr Sodium 137 (136-145) mmol/L Potassium 3.7 (3.5-5.1) mmol/L Chloride 104 (98-107) mmol/L Carbon Dioxide 27 (21-32) mmol/L Anion Gap 6 (3-11) BUN 10 (6-23) mg/dl Creatinine 0.66 (0.6-1.2) mg/dl Est Cr Clr Drug Dosing 125.2 ml/min Est GFR ( Amer) 140.3 ml/min Est GFR (Non-Af Amer) 121.1 ml/min BUN/Creatinine Ratio 15.2 (10-20) Glucose 192 H (70-99(Fasting)) mg/dl Calcium 8.9 (8.5-10.1) mg/dl C-Reactive Protein 0.67 H (0-0.5) mg/dl Resident Activity Tracking Resident Involvement: Resident Care Provided Care Provided: [facility] Medicine
[2022-02-12] MEDS ORDERED: methylPREDNISolone 4 MG TAB PO SCH (07:00)
[2022-02-12] MEDS: ACETAMINOPHEN 325 MG TAB PO SCH ×4 (08:33→20:14)
[2022-02-12] MEDS: buPROPion XL 150 MG TABCR PO SCH (08:33)
[2022-02-12] MEDS: cephALEXin 500 MG CAP PO SCH ×4 (08:34→20:14)
[2022-02-12] MEDS: BACLOFEN 20 MG TAB PO SCH ×4 (08:34→20:16)
[2022-02-12] MEDS: GABAPENTIN 100 MG CAP PO SCH ×2 (08:36→14:12)
[2022-02-12] MEDS: CHOLECALCIFEROL 1,000 UNITS 25 MCG TAB PO SCH (08:36)
[2022-02-12] MEDS: POLYETHYLENE (MIRALAX) 17 GM PACK PO SCH (08:37)
[2022-02-12] MEDS ORDERED: HYDROmorphone PCA 30 MG/30 ML IV PRN (09:39)
[2022-02-12] MEDS ORDERED: NALOXONE HCL 0.4 MG/1 ML VIAL/CARP IV PRN (09:39)
[2022-02-12] MEDS ORDERED: HYDROmorphone Bolus from PCA IV ONE (10:15)
[2022-02-12] MEDS: SODIUM CHLORIDE 0.9% 1000ML 1,000 ML IV SCH (10:25)
[2022-02-12] MEDS: DICLOFENAC SOD 1% GEL 100 GM TUBE EXT SCH ×4 (10:32→20:17)
[2022-02-12 10:37] LABS: Basophils # (auto) 0.01 K/uL (0-0.2); Basophils % (auto) 0.1 %; Eosinophils % (auto) 1.3 %; Hematocrit (blood only) 40.6 % (37-47); Hemoglobin 13.3 g/dL (12.0-16.0); Immature Granulocytes # (auto) 0.02 K/uL (0.00-0.02); Immature Granulocytes % (auto) 0.3 %; Lymphocytes # (auto) 2.26 K/uL (1.2-3.4); Lymphocytes % (auto) 28.8 %; Mean Corpuscular Hemoglobin 29.4 pg (25-34); Mean Corpuscular Hgb Conc 32.8 g/dL (32-36); Mean Corpuscular Volume 89.8 fL (80-100); Mean Platelet Volume 9.9 fL (7.4-10.4); Monocytes # (auto) 0.72 K/uL (0.11-0.59); Monocytes % (auto) 9.2 %; Neutrophils # (auto) 4.73 K/uL (1.4-6.5); Neutrophils % (auto) 60.3 %; Platelet Count 247 K/uL (130-400); RDW Coefficient of Variation 12.6 % (11.5-14.5); Red Blood Count 4.52 M/uL (4.2-5.4); White Blood Count 7.84 K/uL (4.8-10.8)
[2022-02-12 10:57] LABS: BUN Creatinine Ratio 15.2 (10-20); C Reactive Protein 0.67 mg/dl (0-0.5); Calcium 8.9 mg/dl (8.5-10.1); Creatinine Clr Calc Pharmacy 125.2 ml/min; Est GFR (African American) 140.3 ml/min; Est GFR (Non-African American) 121.1 ml/min; Potassium 3.7 mmol/L (3.5-5.1)
[2022-02-12] MEDS: hydrOXYzine HCl 25 MG TAB PO PRN (11:33)
[2022-02-12] MEDS ORDERED: GADOBUTROL 30ML VIAL IV ONE (12:26)
--- NOTE | 2022-02-12 14:34 | Magnetic Resonance Report ---
MRI OF THE LUMBAR SPINE COMBO CLINICAL HISTORY: Chronic low back pain. COMPARISON STUDY: Radiographs of lumbar spine dated 02/06/2022. CT of the lumbar spine dated 12/18/2021. MRI of the lumbar spine dated 12/17/2021. TECHNIQUE: MRI of the lumbar spine is performed utilizing various T1 and T2-weighted sequences in the axial and sagittal planes. Contrast-enhanced sequences were acquired following the IV administration of 7.5 cc of Gadavist. FINDINGS: Lumbar spine: Vertebral body height and alignment are maintained throughout the lumbar spine. Normal marrow signal intensity is preserved throughout the visualized bony structures. The transverse and sp inous processes appear intact. There is no evidence of spondylolysis. No destructive bony lesion is s een. Intervertebral discs: Degenerative disc desiccation is noted at L5-S1. Remaining discs are normal in height and signal intensity. Spinal cord: The visualized spinal cord is normal in morphology and signal intensity. The conus medul jaswant terminates at the L1-L2 interspace. The nerve roots of the cauda equina are normal in morpholog y. No abnormal postcontrast enhancement is identified. L1-L2: Unremarkable. L2-L3: Unremarkable. L3-L4: Unremarkable. L4-L5: Unremarkable. L5-S1: There is minimal posterior central disc protrusion with annular fissure. No acquired compromis e of the central canal is identified. The neural foramina are patent. Sacrum: The visualized sacrum is normal in morphology and signal intensity. Soft tissues: The paraspinous soft tissues are normal in appearance. The retroperitoneal structures a re grossly unremarkable but incompletely evaluated. IMPRESSION: 1. There is no disc herniation, central canal stenosis, or neural foraminal narrowing seen throughout the lumbar spine. No significant change from 12/17/2021. 2. No acute osseous abnormality is identified. 3. Minimal degenerative disc disease is again noted at L5-S1. Dictated: 02/12/2022 2:02 PM Transcribed: 02/12/2022 2:28 PM Margaux [id number] [email or web address] Electronically signed by: Lawrence Olivier M.D. 02/12/2022 2:32 PM
--- NOTE | 2022-02-12 15:00 | Magnetic Resonance Report ---
MRI OF THE PELVIS COMBO CLINICAL HISTORY: Chronic low back pain. Sacral/piriformis pain. COMPARISON STUDY: Pelvic CT dated 02/06/2022. TECHNIQUE: MRI of the pelvis is performed utilizing various T1 and T2-weighted sequences in the axial , sagittal, and coronal planes. Contrast-enhanced sequences are acquired following the IV administrat ion of 7.5 cc of Gadavist. FINDINGS: Normal marrow signal intensity is maintained throughout the hips and bony pelvis. There is no MRI evidence of fracture. There is no osteonecrosis of the femoral heads. The sacroiliac joints ar e normal. The hip joints are normal as visualized. No hip joint effusion is identified. There is intr amuscular edema within the left gluteus lorrie near the myotendinous junction. The tendon appears in tact as visualized. The regional musculature is otherwise normal in bulk and signal intensity. The or igin of the hamstrings tendons are intact. There is no evidence of trochanteric bursitis. The bladder , uterus, and adnexa are normal as visualized noting small ovarian follicles. There is no free fluid in the cul-de-sac. The imaged bowel loops show no evidence of obstruction. The perianal soft tissues are normal in appearance. IMPRESSION: 1. No osseous abnormality is identified. 2. There is intramuscular edema of the left gluteus lorrie near the myotendinous junction. Correlate clinically for evidence of muscle strain. Dictated: 02/12/2022 2:12 PM Transcribed: 02/12/2022 2:30 PM Margaux [id number] [email or web address] Electronically signed by: Lawrence Olivier M.D. 02/12/2022 2:58 PM
--- NOTE | 2022-02-12 18:12 | Billing Data ---
Date of Service February 12, 2022 Coding Level of Care Code 82186 Subseq Hosp Care Lvl 3
[2022-02-12] MEDS: DULoxetine HCL 60 MG CAP PO SCH (20:14)
[2022-02-12] MEDS: GABAPENTIN 400 MG CAP PO SCH (20:15)
[2022-02-12] MEDS: PHENAZOPYRIDINE HCL 200 MG TAB PO PRN (22:09)
[2022-02-12] MEDS ORDERED: diphenhydrAMINE HCL 25 MG/10 ML UDC PO ONE (22:22)
[2022-02-13] MEDS ORDERED: FAMOTIDINE 20 MG TAB PO STA (03:10)
[2022-02-13] MEDS: ONDANSETRON INJ 2 MG/ML 2 ML VIAL IV PRN ×2 (03:17→09:04)
[2022-02-13] MEDS: KETOROLAC TROMETHAMINE 15 MG/ML VIAL IV SCH (03:18)
[2022-02-13] MEDS: buPROPion XL 150 MG TABCR PO SCH (09:05)
[2022-02-13] MEDS: CHOLECALCIFEROL 1,000 UNITS 25 MCG TAB PO SCH (09:05)
[2022-02-13] MEDS: cephALEXin 500 MG CAP PO SCH ×3 (09:05→16:52)
[2022-02-13] MEDS: ACETAMINOPHEN 325 MG TAB PO SCH ×4 (09:05→21:52)
[2022-02-13] MEDS: GABAPENTIN 100 MG CAP PO SCH ×2 (09:06→13:34)
[2022-02-13] MEDS: BACLOFEN 20 MG TAB PO SCH ×4 (09:06→21:53)
[2022-02-13] MEDS: DICLOFENAC SOD 1% GEL 100 GM TUBE EXT SCH ×4 (09:07→21:53)
[2022-02-13] MEDS ORDERED: FAMOTIDINE 20 MG TAB PO PRN (11:54)
[2022-02-13] MEDS: POLYETHYLENE (MIRALAX) 17 GM PACK PO SCH ×2 (12:08→21:55)
--- NOTE | 2022-02-13 16:43 | Hospitalist Progress Note ---
Date of Service February 13, 2022 Assessment & Plan (1) Intractable back pain: Plan: 26 yo female with PMHx of chronic back pain, anxiety, and depression who presented to the emergency department with a worsening of her low back pain. #Intractable back pain -presented with lumbosacral pain with exacerbation over over left sacroiliac region with radiating numbness/tingling down back of left leg -has had recent fall -MRI last admission- mild disc protrusion at L5/S1, less likely cause of pain -CT A/P (02/06): nonobstructing kidney stones, UA:+calcium oxalate, +blood -HLA-B12 negative -MRI lumbar (02/12): no changes from 12/17/2021, minimal degenerative disc disease at L5-S1 -MRI pelvis (02/12): intramuscular edema left gluteus at myotendinous junction. -labs unremarkable -Sees pain mx as outpt. Most recently seen by them on 12/28 for an SI joint injection with some pain relief for ~1 week. -On last admission, patient was evaluated by Dr. Bennett who does not feel that patient was a candidate for surgery. -Pain regimen: -Continue home regimen of scheduled gabapentin, duloxetine (inc from 30 mg to 60 mg). -Cont. IV Toradol 30 mg q6h, acetaminophen 650mg q4h, heating pad, voltaren gel, baclofen 20mg qid. -did attempt TENS unit -hold OMT treatments; previously tx with direct myofasical and LAS over piriformis and lower lumbar -RESIDENTIAL PROPERTY TAX APPRAISER dilauded 0.25 q15min, d/c'd oxy and IV dilaudid -Seen by pain mx during this admission. will get their input again since now on RESIDENTIAL PROPERTY TAX APPRAISER pump. Will be challenging to wean off considering there is no obvious source of pain unless recent injury from fall is the main contributing factor. #Depression -continue Wellbutrin. -cont. Cymbalta 60mg to help with any neuropathic pain #Anxiety -Continue hydroxyzine, Wellbutrin, Cymbalta #Hyperthyroidism -Not currently taking medication for this. -Most recent TSH normal #Constipation, improving -reportedly hadn't had BM since 01/24 -had multiple BMs with doculax suppository, miralax -cont. miralax scheduled #Urinary retention, resolved -was having some difficulty peeing with sensation of urgency -urology consulted (02/09): likely multifactorial including polypharmacy, constipation, pain; agree. -pyridium for bladder pain -treated for possible uti with keflex. will d/c -s/p multiple straight caths, callaway placed (02/09) -voiding appropriately since callaway removal (02/11) DVT ppx: SCDs FEN/GI: regular Code Status: full Dispo: med/surg (2) Constipation: (3) Depression: (4) Anxiety: (5) Hyperthyroidism: Admission and Anticipated Discharge Date Admission Date: February 08, 2022 Supervising Physician Co-Signing Physician Notes Resident Physician Supervision Note: I independently interviewed and examined the patient and verified the lowry history and physical, reviewed labs and image studies and agree with resident Dr. Avila findings and care plan. Subjective Seen at bedside today. Voiding appropriately. Continued BMs on miralax. Slept well overnight on RESIDENTIAL PROPERTY TAX APPRAISER. Review of Systems Review of Systems: All systems reviewed & are unremarkable except as noted in Subjective Physical Exam Physical Exam: General: awake, laying in bed comfortably HEENT: NCAT, EOMI, moist mucous membranes Chest: CTA bilaterally, normal breath sounds Cardiac: RRR, no murmur Abdominal: soft, nondistended, nontender to palpation, no guarding Back/Extremities: small healing bruise near left thoracic spine consistent with reported fall on 02/03; left low back is tender upon palpation specifically along left piriformis and gluteal region as well as over lumbosacral region; paraes thesia globally along left leg, exacerbation with straight leg raise on left. Psych: Normal mood and affect Neuro: AAOx3, no motor deficits, speech is clear, no peripheral sensory deficits Skin: no rash or erythema Results & Data Results & Data ([facility]) Vital Signs (Past 12 Hours) Vital Signs Temp Pulse Resp BP Pulse Ox 02/13/22 14:32 37 C 120 H 16 120/85 97 02/13/22 11:28 37.2 C 113 H 16 128/86 97 02/13/22 07:17 36.6 C 112 H 18 122/85 98 02/13/22 06:19 36.5 C 100 H 16 116/70 98 Resident Activity Tracking Resident Involvement: Resident Care Provided Care Provided: Adult [facility] Medicine
[2022-02-13] MEDS: GABAPENTIN 400 MG CAP PO SCH (21:52)
[2022-02-13] MEDS: DULoxetine HCL 60 MG CAP PO SCH (21:54)
[2022-02-13] MEDS: hydrOXYzine HCl 25 MG TAB PO PRN (21:59)
[2022-02-14] MEDS: SODIUM CHLORIDE 0.9% 1000ML 1,000 ML IV SCH ×2 (08:23→11:55)
[2022-02-14] MEDS: GABAPENTIN 100 MG CAP PO SCH ×2 (08:25→13:54)
[2022-02-14] MEDS: buPROPion XL 150 MG TABCR PO SCH (08:25)
[2022-02-14] MEDS: BACLOFEN 20 MG TAB PO SCH ×4 (08:26→21:06)
[2022-02-14] MEDS: CHOLECALCIFEROL 1,000 UNITS 25 MCG TAB PO SCH (08:26)
[2022-02-14] MEDS: POLYETHYLENE (MIRALAX) 17 GM PACK PO SCH ×2 (08:26→21:06)
[2022-02-14] MEDS: ACETAMINOPHEN 325 MG TAB PO SCH ×4 (08:27→21:06)
[2022-02-14] MEDS: DICLOFENAC SOD 1% GEL 100 GM TUBE EXT SCH ×4 (08:27→21:06)
[2022-02-14] MEDS: PHENAZOPYRIDINE HCL 200 MG TAB PO PRN (09:17)
--- NOTE | 2022-02-14 12:50 | Pain Management Progress Note ---
Date of Service February 14, 2022 Assessment & Plan (1) Chronic low back pain: (2) Lumbar radiculopathy: (3) Anxiety: (4) Depression: (5) Urinary retention: Plan: 1. Patient's recent difficulties with urinary retention likely a byproduct of her opiate utilization-would strongly recommend discontinuation of hydromorphone TRANSPORTATION ASSISTANT. Recommend judicious utilization of opiate therapy moving forward. 2. Recommend resuming steroid therapy with tapering course 3. Recommend PT evaluation and treatment 4. We did briefly discuss pursuing lateral branch block in the outpatient setting but concerned about myofascial reaction with subsequent RFA. Alternatively could consider a left L5-S1 transforaminal YOLY. 5. Consider psych eval to determine whether her anxiety/depressive disorder needs are being met. 6. Pain service will sign off on patient at this time-Case was discussed with Dr. Parikh. Admission and Anticipated Discharge Date Admission Date: February 08, 2022 Subjective Mrs. Milian is a 26-year-old patient who is well-known to the pain service. Further evaluation was requested by hospitalist due to a recent transition to TRANSPORTATION ASSISTANT Dilaudid for treatment of her persisting complaints of pain. She continues to have pain complaints in the left lumbosacral region extending through the gluteal area and posterior leg in a predominant S1 distribution to the foot. She does describe some generalized paresthesias of the entire left lower leg. She indicates her pain is 85% axial in the left lumbosacral region and 15% radicular. Her pain remains aggravated with positional change and ambulation. Her pain is improved by lying still and sitting up. She has had difficulty urinary retention over the past few days which initially required Singh catheter which was subsequently removed, but further difficulties led to straight cath earlier today. She is reporting some loose stools due to use of MiraLAX as she was previously constipated reporting no bowel movements over the prior 2 weeks. She denies her pain is significantly different in location or characteristic as it has been over the past few months in spite of a recent fall prior to this admission. She denies bowel or bladder incontinence or saddle anesthesia. Patient has no further constitutional complaints. Patient has been unable to tolerate daytime gabapentin dosing due to sedation. Plan of care discussed with Dr. Diana Nava. Pain Assessment Pain Assessment Full Body Front + Back: 1. Left lumbosacral/gluteal region 2. S1 radicular pain 3. Entire left leg paresthesia Physical Exam Physical Exam: General: Patient was sitting up quietly upon in the room in no acute distress. Speech and thought process appropriate. Mood and affect appropriate. Cognition intact. Abdomen: Soft and nondistended. Back/spine: Patient is tender over the left L4-S1 facet joint region and SI filipe int area to provocative testing. Patient exquisitely tender throughout the left gluteal musculature. Minimal spasm. No definitive myoneural trigger points. Patient nontender corresponding on the right to provocative testing of the facet joint or SI joint region. Lower extremities: Patient indicates diminished sensation of the entire left lower extremity when compared to the right in a nondermatomal pattern to sharp and dull. No appreciable edema. No erythema. Straight leg raising increases left gluteal region pain without radicular component. SLR negative on the right. Internal/external rotation of the left hip increased gluteal region pain. Modified FLORENTIN maneuver is equivocal on the left and negative on the right. Minimally tender over the greater trochanter bilaterally. Musculoskeletal: No evidence of diffuse myofascial pain on today's exam. Neurologic: Cranial nerves grossly intact. Ambulation not witnessed. Results (Pain Clinic) Diagnostic Review MRI Findings: [facility], [place] [phone] Magnetic Resonance Report Patient:MARCELA MILIAN Admit Date:02/08/22 MR#:[id number] Address1:[address] [place] [address] Acct ID:[id number] Address2: Date:[address] [facility] Zip:[place] [address] Age:26 Location:3E Sex:F Room/Bed:[facility] Att Phy:Dung Terry D.O. Diagnosis:INTRACTABLE BACK PAIN Reema Phy:Luisa Roldan MD Service Date:02/12/22 Fam Phy: Interpreting Phy:Lawrence Olivier [facility] Phy:Regina Ferrer MD Ordering Phy:Raman Avila DO cc: ~ MRI OF THE PELVIS COMBO CLINICAL HISTORY: Chronic low back pain. Sacral/piriformis pain. COMPARISON STUDY: Pelvic CT dated 02/06/2022. TECHNIQUE: MRI of the pelvis is performed utilizing various T1 and T2-weighted sequences in the axial, sagittal, and coronal planes. Contrast-enhanced sequences are acquired following the IV administration of 7.5 cc of Gadavist. FINDINGS: Normal marrow signal intensity is maintained throughout the hips and bony pelvis. There is no MRI evidence of fracture. There is no osteonecrosis of the femoral heads. The sacroiliac joints are normal. The hip joints are normal as visualized. No hip joint effusion is identified. There is intramuscular edema within the left gluteus lorrie near the myotendinous junction. The tendon appears intact as visualized. The regional musculature is otherwise normal in bulk and signal intensity. The origin of the hamstrings tendons are intact. There is no evidence of trochanteric bursitis. The bladder, uterus, and adnexa are normal as visualized noting small ovarian follicles. There is no free fluid in the cul-de-sac. The imaged bowel loops show no evidence of obstruction. The perianal soft tissues are normal in appearance. IMPRESSION: 1. No osseous abnormality is identified. 2. There is intramuscular edema of the left gluteus lorrie near the myotendinous junction. Correlate clinically for evidence of muscle strain. Dictated: 02/12/2022 2:12 PM Transcribed: 02/12/2022 2:30 PM Margaux [id number] [email or web address] Electronically signed by: Lawrence Olivier M.D. 02/12/2022 2:58 PM Dictated:02/12/22 1412 Transcribed: 02/12/22 1431
--- NOTE | 2022-02-14 14:11 | Hospitalist Progress Note ---
Date of Service February 14, 2022 Assessment & Plan (1) Intractable back pain: Plan: 26 yo female with PMHx of chronic back pain, anxiety, and depression who presented to the emergency department with a worsening of her low back pain. #Intractable back pain -presented with lumbosacral pain with exacerbation over over left sacroiliac region with radiating numbness/tingling down back of left leg -has had recent fall -MRI last admission- mild disc protrusion at L5/S1, less likely cause of pain -CT A/P (02/06): nonobstructing kidney stones, UA:+calcium oxalate, +blood -HLA-B12 negative -MRI lumbar (02/12): no changes from 12/17/2021, minimal degenerative disc disease at L5-S1 -MRI pelvis (02/12): intramuscular edema left gluteus at myotendinous junction. -labs unremarkable -Sees pain mx as outpt. Most recently seen by them on 12/28 for an SI joint injection with some pain relief for ~1 week. -On last admission, patient was evaluated by Dr. Bennett who does not feel that patient was a candidate for surgery. -Pain regimen: -Continue home regimen of scheduled gabapentin, duloxetine (inc from 30 mg to 60 mg). -Cont. IV Toradol 30 mg q6h, acetaminophen 650mg q4h, heating pad, voltaren g el, baclofen 20mg qid. -did attempt TENS unit -hold OMT treatments; previously tx with direct myofascial and LAS over piriformis and lower lumbar -Was started on SENIOR SUSTAINABILITY CONSULTANT pump on 02/12 due to uncontrolled pain. -pain mx recs (02/14): discontinue SENIOR SUSTAINABILITY CONSULTANT, judicious utilization of opiate therapy, steroid therapy taper, possible lateral branch block outpatient -d/c'd SENIOR SUSTAINABILITY CONSULTANT, now on IV dilaudid .25 mg q4h prn + oxycodone 5mg po q4h prn alternating with oxycodone 10mg po q4h prn -restarted steroids - medrol dosepak 6 day taper #Depression -continue Wellbutrin. -cont. Cymbalta 60mg to help with any neuropathic pain #Anxiety -Continue hydroxyzine, Wellbutrin, Cymbalta #Hyperthyroidism -Not currently taking medication for this. -Most recent TSH normal #Constipation, improving -reportedly hadn't had BM since 01/24 -had multiple BMs with doculax suppository, miralax -cont. miralax scheduled #Urinary retention, resolved -was having some difficulty peeing with sensation of urgency -urology consulted (02/09): likely multifactorial including polypharmacy, constipation, pain; agree. -pyridium for bladder pain -treated for possible uti with keflex. d/c'd (02/13) -s/p multiple straight caths, callaway placed (02/09) -was straight cathed in am for retention, cont. to monitor -d/c SENIOR SUSTAINABILITY CONSULTANT will help DVT ppx: SCDs FEN/GI: regular Code Status: full Dispo: med/surg (2) Anxiety: (3) Chronic low back pain: (4) Urinary retention: (5) Hyperthyroidism: (6) Depression: (7) Constipation: Admission and Anticipated Discharge Date Admission Date: February 08, 2022 Supervising Physician Co-Signing Physician Notes Resident Physician Supervision Note: I independently interviewed and examined the patient and verified the lowry history and physical, reviewed labs and image studies and agree with resident Dr. Jaison Avila findings and care plan. Subjective Seen at bedside this morning. Sitting comfortably in bed. Mild back pain on SENIOR SUSTAINABILITY CONSULTANT. Continues to have BMs on miralax. Did have urinary retention overnight and was straight cathed this morning. Review of Systems Review of Systems: All systems reviewed & are unremarkable except as noted in Subjective Physical Exam Physical Exam: General: awake, laying in bed comfortably HEENT: NCAT, EOMI, moist mucous membranes Chest: CTA bilaterally, normal breath sounds Cardiac: RRR, no murmur Abdominal: soft, nondistended, nontender to palpation, no guarding Back/Extremities: small healing bruise near left thoracic spine consistent with reported fall on 02/03; left low back is tender upon palpation specifically along left piriformis and gluteal region as well as over lumbosacral region; paraesthesia globally along left leg, exacerbation with straight leg raise on left. Psych: Normal mood and affect Neuro: AAOx3, no motor deficits, speech is clear, no peripheral sensory deficits Skin: no rash or erythema Results & Data Results & Data ([facility]) Vital Signs (Past 12 Hours) Vital Signs Temp Pulse Resp BP Pulse Ox 02/14/22 12:54 37.1 C 111 H 20 122/76 97 02/14/22 08:08 37.1 C 87 18 124/81 99 02/14/22 04:06 36.6 C 105 H 18 125/70 97 Resident Activity Tracking Resident Involvement: Resident Care Provided Care Provided: Adult Hospital Medicine
[2022-02-14] MEDS ORDERED: KETOROLAC 30 MG/ML VIAL IV PRN (17:57)
[2022-02-14] MEDS ORDERED: methylPREDNISolone 4 MG TAB, 6 DAY TAPER PO SCH (18:00)
[2022-02-14] MEDS: methylPREDNISolone 4 MG TAB PO SCH ×2 (19:36→22:10)
[2022-02-14] MEDS: oxyCODONE HCL IR 5 MG TAB (IMMEDIATE RELEASE) PO PRN (19:40)
[2022-02-14] MEDS: GABAPENTIN 400 MG CAP PO SCH (21:06)
[2022-02-14] MEDS: DULoxetine HCL 60 MG CAP PO SCH (21:06)
[2022-02-14] MEDS: HYDROmorphone INJ 0.5 MG/0.5 ML SYR IV PRN (22:32)
[2022-02-14] MEDS: hydrOXYzine HCl 25 MG TAB PO PRN (22:34)
[2022-02-15] MEDS: oxyCODONE HCL IR 5 MG TAB (IMMEDIATE RELEASE) PO PRN ×5 (00:50→22:06)
[2022-02-15] MEDS: HYDROmorphone INJ 0.5 MG/0.5 ML SYR IV PRN ×4 (04:17→19:54)
[2022-02-15 05:26] LABS: BUN Creatinine Ratio 16.7 (10-20); Calcium 8.9 mg/dl (8.5-10.1); Creatinine Clr Calc Pharmacy 142.1 ml/min; Est GFR (African American) 144.8 ml/min; Est GFR (Non-African American) 124.9 ml/min; Potassium 4.3 mmol/L (3.5-5.1)
[2022-02-15] MEDS ORDERED: methylPREDNISolone 4 MG TAB PO SCH ×2 (07:00→21:00)
--- NOTE | 2022-02-15 07:35 | Hospitalist Progress Note ---
Date of Service February 15, 2022 Assessment & Plan (1) Intractable back pain: Plan: 26 yo female with PMHx of chronic back pain, anxiety, and depression who presented to the emergency department with a worsening of her low back pain. #Intractable back pain -presented with lumbosacral pain with exacerbation over over left sacroiliac region with radiating numbness/tingling down back of left leg -has had recent fall -MRI last admission- mild disc protrusion at L5/S1, less likely cause of pain -CT A/P (02/06): nonobstructing kidney stones, UA:+calcium oxalate, +blood -HLA-B12 negative -MRI lumbar (02/12): no changes from 12/17/2021, minimal degenerative disc disease at L5-S1 -MRI pelvis (02/12): intramuscular edema left gluteus at myotendinous junction. -labs unremarkable -Sees pain mx as outpt. Most recently seen by them on 12/28 for an SI joint injection with some pain relief for ~1 week. -On last admission, patient was evaluated by Dr. Bennett who does not feel that patient was a candidate for surgery. -Pain regimen: -Continue home regimen of scheduled gabapentin, duloxetine (inc from 30 mg to 60 mg). -Cont. IV Toradol 30 mg q6h, acetaminophen 650mg q4h, heating pad, voltaren g el, baclofen 20mg qid. -did attempt TENS unit -hold OMT treatments; previously tx with direct myofascial and LAS over piriformis and lower lumbar -Was started on FACILITY MAINTENANCE TECHNICIAN pump on 02/12 due to uncontrolled pain. -pain mx recs (02/14): discontinue FACILITY MAINTENANCE TECHNICIAN, judicious utilization of opiate therapy, steroid therapy taper, possible lateral branch block outpatient -d/c'd FACILITY MAINTENANCE TECHNICIAN, now on IV dilaudid .25 mg q4h prn alternating with oxycodone 10mg po q4h prn -d/c'd steroids due to agitation -suspect underlying anxiety creating heightened pain sensitivity and associated ? pelvic floor muscle dysfunction leading to spasm/urinary retension- to optimize anxiety management #Depression -continue Wellbutrin. -cont. Cymbalta 60mg to help with any neuropathic pain #Anxiety -Continue home meds - hydroxyzine, Wellbutrin, Cymbalta -elevations in BP and HR, given 1mg ativan in am with improvement -increase hydroxyzine to tid prn. -hydrooxyzine should help with sleep as well. has been using oxycodone at night to help with sleep -add propronol as well for anxiety driven tachycardia. -[facility] liason consult for setting up outpatient needs. #Hyperthyroidism -Not currently taking medication for this. -Most recent TSH normal #Constipation, improving -reportedly hadn't had BM since 01/24 -had multiple BMs with doculax suppository, miralax -cont. miralax scheduled #Urinary retention -was having some difficulty peeing with sensation of urgency -urology consulted (02/09): likely multifactorial including polypharmacy, constipation, pain; agree. -pyridium for bladder pain -treated for possible uti with keflex. d/c'd (02/13) -s/p multiple straight caths, callaway placed 02/09 and removed 02/11 -continued need for straight cath, will monitor -d/c FACILITY MAINTENANCE TECHNICIAN will help -optimizing anxiety treatment should help. -to follow up with urology as outpatient for urodynamic testing DVT ppx: SCDs FEN/GI: regular Code Status: full Dispo: med/surg (2) Anxiety: (3) Chronic low back pain: (4) Urinary retention: (5) Hyperthyroidism: (6) Depression: (7) Constipation: Admission and Anticipated Discharge Date Admission Date: February 08, 2022 Supervising Physician Co-Signing Physician Notes Resident Physician Supervision Note: I independently interviewed and examined the patient and verified the lowry history and physical, reviewed labs and image studies and agree with resident Dr. Jaison Avila findings and care plan. Subjective Seen at bedside this morning. Overnight was straight cathed multiple times over 2L urine output. Has not been able to void since yesterday morning. No longer on FACILITY MAINTENANCE TECHNICIAN, still in a lot pain. Very anxious this morning. Review of Systems Review of Systems: All systems reviewed & are unremarkable except as noted in Subjective Physical Exam Physical Exam: General: awake, laying in bed comfortably HEENT: NCAT, EOMI, moist mucous membranes Chest: CTA bilaterally, normal breath sounds Cardiac: RRR, no murmur Abdominal: soft, nondistended, nontender to palpation, no guarding Back/Extremities: small healing bruise near left thoracic spine consistent with reported fall on 02/03; left low back is tender upon palpation specifically along left piriformis and gluteal region as well as over lumbosacral region; paraesthesia globally along left leg, exacerbation with straight leg raise on left. Psych: Normal mood and affect Neuro: AAOx3, no motor deficits, speech is clear, no peripheral sensory deficits Skin: no rash or erythema Results & Data Results & Data ([facility]) Vital Signs (Past 12 Hours) Vital Signs Temp Pulse Resp BP Pulse Ox 02/14/22 23:11 36.6 C 96 H 18 145/100 H 98 Laboratory Results 02/15/22 02/15/22 Range/Units 04:58 04:58 Sodium 138 (136-145) mmol/L Potassium 4.3 (3.5-5.1) mmol/L Chloride 104 (98-107) mmol/L Carbon Dioxide 27 (21-32) mmol/L Anion Gap 7 (3-11) BUN 10 (6-23) mg/dl Creatinine 0.60 (0.6-1.2) mg/dl Est Cr Clr Drug Dosing 142.1 ml/min Est GFR ( Amer) 144.8 ml/min Est GFR (Non-Af Amer) 124.9 ml/min BUN/Creatinine Ratio 16.7 (10-20) Glucose 131 H (70-99(Fasting)) mg/dl Osmolality 292 (280-300) mOsm/kg Calcium 8.9 (8.5-10.1) mg/dl Resident Activity Tracking Resident Involvement: Resident Care Provided Care Provided: Adult Hospital Medicine
[2022-02-15] MEDS: POLYETHYLENE (MIRALAX) 17 GM PACK PO SCH ×2 (07:49→21:13)
[2022-02-15] MEDS: buPROPion XL 150 MG TABCR PO SCH (07:51)
[2022-02-15] MEDS: BACLOFEN 20 MG TAB PO SCH ×4 (07:51→21:22)
[2022-02-15] MEDS: GABAPENTIN 100 MG CAP PO SCH ×2 (07:52→13:30)
[2022-02-15] MEDS: ACETAMINOPHEN 325 MG TAB PO SCH ×4 (07:52→21:15)
[2022-02-15] MEDS: CHOLECALCIFEROL 1,000 UNITS 25 MCG TAB PO SCH (07:52)
[2022-02-15] MEDS: DICLOFENAC SOD 1% GEL 100 GM TUBE EXT SCH ×4 (07:53→21:17)
[2022-02-15] MEDS ORDERED: LORazepam 2 MG/1 ML VIAL IV SCH (09:25)
[2022-02-15] MEDS ORDERED: LORazepam 2 MG/1 ML VIAL IV STA (11:25)
[2022-02-15] MEDS: PHENAZOPYRIDINE HCL 200 MG TAB PO PRN (15:48)
[2022-02-15] MEDS ORDERED: hydrOXYzine HCl 25 MG TAB PO PRN (16:38)
[2022-02-15] MEDS: PROPRANOLOL HCL 10 MG TAB PO SCH ×2 (18:32→21:18)
[2022-02-15] MEDS ORDERED: PROPRANOLOL HCL 10 MG TAB PO SCH (21:00)
[2022-02-15] MEDS: ZOLPIDEM TARTRATE 5 MG TAB PO SCH (21:13)
[2022-02-15] MEDS: DULoxetine HCL 60 MG CAP PO SCH (21:14)
[2022-02-15] MEDS: GABAPENTIN 400 MG CAP PO SCH (21:14)
[2022-02-15] MEDS: FAMOTIDINE 20 MG TAB PO SCH (21:15)
[2022-02-15] MEDS: ONDANSETRON INJ 2 MG/ML 2 ML VIAL IV PRN (21:22)
[2022-02-16] MEDS: HYDROmorphone INJ 0.5 MG/0.5 ML SYR IV PRN ×5 (03:41→21:05)
[2022-02-16] MEDS ORDERED: methylPREDNISolone 4 MG TAB PO SCH (07:00)
--- NOTE | 2022-02-16 08:12 | Hospitalist Progress Note ---
Date of Service February 16, 2022 Assessment & Plan (1) Intractable back pain: Plan: 26 yo female with PMHx of chronic back pain, anxiety, and depression who presented to the emergency department with a worsening of her low back pain. #Intractable back pain -presented with lumbosacral pain with exacerbation over over left sacroiliac region with radiating numbness/tingling down back of left leg -has had recent fall -MRI last admission- mild disc protrusion at L5/S1, less likely cause of pain -CT A/P (02/06): nonobstructing kidney stones, UA:+calcium oxalate, +blood -HLA-B12 negative -MRI lumbar (02/12): no changes from 12/17/2021, minimal degenerative disc disease at L5-S1 -MRI pelvis (02/12): intramuscular edema left gluteus at myotendinous junction. -labs unremarkable -Sees pain mx as outpt. Most recently seen by them on 12/28 for an SI joint injection with some pain relief for ~1 week. -On last admission, patient was evaluated by Dr. Bennett who does not feel that patient was a candidate for surgery. -Pain regimen: -Continue home regimen of scheduled gabapentin, duloxetine (inc from 30 mg to 60 mg). -Cont. IV Toradol 30 mg q6h prn, acetaminophen 650mg q4h, heating pad, voltar en gel, baclofen 20mg qid. -did attempt TENS unit -hold OMT treatments; previously tx with direct myofascial and LAS over piriformis and lower lumbar -Was started on DIGITAL MEDIA MANAGER pump on 02/12 due to uncontrolled pain. -pain mx recs (02/14): discontinue DIGITAL MEDIA MANAGER, judicious utilization of opiate therapy, steroid therapy taper, possible lateral branch block outpatient -d/c'd DIGITAL MEDIA MANAGER, now on IV dilaudid .25 mg q4h prn alternating with oxycodone 10mg po q4h prn -d/c'd steroids due to agitation -continue current management #Depression -continue Wellbutrin. -cont. Cymbalta 60mg to help with any neuropathic pain #Anxiety -Continue home meds - hydroxyzine, Wellbutrin, Cymbalta -elevations in BP and HR -continue hydroxyzine tid prn. -hydroxyzine should help with sleep as well. has been using oxycodone at night to help with sleep as outpatient. -continue propranolol as well for anxiety driven tachycardia. [facility] for setting up outpatient needs. #Hyperthyroidism -Not currently taking medication for this. -Most recent TSH normal #Constipation, improving -reportedly hadn't had BM since 01/24 -had multiple BMs with doculax suppository, miralax -cont. miralax scheduled #Urinary retention -was having some difficulty peeing with sensation of urgency -urology consulted (02/09): likely multifactorial including polypharmacy, constipation, pain; agree. -pyridium for bladder pain -treated for possible uti with keflex. d/c'd (02/13) -s/p multiple straight caths, callaway placed 02/09 and removed 02/11 -voiding since evening of 02/15, d/c'd DIGITAL MEDIA MANAGER helping -optimizing anxiety treatment should help. -to follow up with urology as outpatient for urodynamic testing -could also consider pelvic floor physiotherapy as outpatient DVT ppx: SCDs FEN/GI: regular Code Status: full Dispo: med/surg (2) Anxiety: (3) Chronic low back pain: (4) Urinary retention: (5) Hyperthyroidism: (6) Depression: (7) Constipation: Admission and Anticipated Discharge Date Admission Date: February 08, 2022 Supervising Physician Co-Signing Physician Notes Resident Physician Supervision Note: I independently interviewed and examined the patient and verified the lowry history and physical, reviewed labs and image studies and agree with resident Dr. Jaison Avila findings and care plan. Subjective Seen at bedside this morning. Has been voiding since last night. BMs continue. Slept well with Ambien. Seems more relaxed this morning. Review of Systems Review of Systems: All systems reviewed & are unremarkable except as noted in Subjective Physical Exam Physical Exam: General: awake, laying in bed comfortably HEENT: NCAT, EOMI, moist mucous membranes Chest: CTA bilaterally, normal breath sounds Cardiac: RRR, no murmur Abdominal: soft, nondistended, nontender to palpation, no guarding Back/Extremities: small healing bruise near left thoracic spine consistent with reported fall on 02/03; left low back is tender upon palpation specifically along left piriformis and gluteal region as well as over lumbosacral region; paraesthesia globally along left leg, exacerbation with straight leg raise on left. Psych: Normal mood and affect Neuro: AAOx3, no motor deficits, speech is clear, no peripheral sensory deficits Skin: no rash or erythema Results & Data Results & Data ([facility]) Vital Signs (Past 12 Hours) Vital Signs Temp Pulse Pulse Resp BP Pulse Ox 02/16/22 06:17 36.9 C 79 16 115/73 97 02/15/22 22:01 36.5 C 93 H 18 133/88 97 Resident Activity Tracking Resident Involvement: Resident Care Provided Care Provided: Adult Hospital Medicine
[2022-02-16] MEDS: PROPRANOLOL HCL 10 MG TAB PO SCH ×2 (08:33→20:52)
[2022-02-16] MEDS: BACLOFEN 20 MG TAB PO SCH ×4 (08:33→20:50)
[2022-02-16] MEDS: FAMOTIDINE 20 MG TAB PO SCH ×2 (08:34→20:53)
[2022-02-16] MEDS: CHOLECALCIFEROL 1,000 UNITS 25 MCG TAB PO SCH (08:34)
[2022-02-16] MEDS: buPROPion XL 150 MG TABCR PO SCH (08:34)
[2022-02-16] MEDS: GABAPENTIN 100 MG CAP PO SCH ×2 (08:34→13:29)
[2022-02-16] MEDS: POLYETHYLENE (MIRALAX) 17 GM PACK PO SCH ×2 (08:35→20:51)
[2022-02-16] MEDS: DICLOFENAC SOD 1% GEL 100 GM TUBE EXT SCH ×4 (08:35→20:50)
[2022-02-16] MEDS: ACETAMINOPHEN 325 MG TAB PO SCH ×4 (08:36→20:50)
[2022-02-16] MEDS: oxyCODONE HCL IR 5 MG TAB (IMMEDIATE RELEASE) PO PRN ×3 (10:22→18:32)
[2022-02-16] MEDS ORDERED: HYDROmorphone INJ 0.5 MG/0.5 ML SYR IV STA (15:28)
[2022-02-16] MEDS ORDERED: oxyCODONE HCL IR 5 MG TAB (IMMEDIATE RELEASE) PO PRN (17:30)
[2022-02-16] MEDS: DULoxetine HCL 60 MG CAP PO SCH (20:51)
[2022-02-16] MEDS: GABAPENTIN 400 MG CAP PO SCH (20:51)
[2022-02-16] MEDS: ZOLPIDEM TARTRATE 5 MG TAB PO SCH (21:10)
[2022-02-16] MEDS ORDERED: ZOLPIDEM TARTRATE 5 MG TAB PO ONE (21:30)
[2022-02-17] MEDS: oxyCODONE HCL IR 5 MG TAB (IMMEDIATE RELEASE) PO PRN ×4 (01:23→16:41)
[2022-02-17] MEDS: HYDROmorphone INJ 0.5 MG/0.5 ML SYR IV PRN ×5 (03:22→21:59)
[2022-02-17] MEDS ORDERED: methylPREDNISolone 4 MG TAB PO SCH (07:00)
[2022-02-17] MEDS: DICLOFENAC SOD 1% GEL 100 GM TUBE EXT SCH ×4 (07:36→20:34)
[2022-02-17] MEDS: ACETAMINOPHEN 325 MG TAB PO SCH ×4 (07:38→20:33)
[2022-02-17] MEDS: BACLOFEN 20 MG TAB PO SCH ×4 (07:39→20:34)
[2022-02-17] MEDS: GABAPENTIN 100 MG CAP PO SCH ×2 (07:40→12:19)
[2022-02-17] MEDS: FAMOTIDINE 20 MG TAB PO SCH ×2 (07:40→20:34)
[2022-02-17] MEDS: PROPRANOLOL HCL 10 MG TAB PO SCH ×2 (07:40→20:34)
[2022-02-17] MEDS: CHOLECALCIFEROL 1,000 UNITS 25 MCG TAB PO SCH (07:40)
[2022-02-17] MEDS: buPROPion XL 150 MG TABCR PO SCH (07:40)
[2022-02-17] MEDS: POLYETHYLENE (MIRALAX) 17 GM PACK PO SCH ×2 (07:43→20:32)
[2022-02-17] MEDS ORDERED: HYDROmorphone INJ 0.5 MG/0.5 ML SYR IV STA (10:21)
--- NOTE | 2022-02-17 17:08 | Hospitalist Progress Note ---
Date of Service February 17, 2022 Assessment & Plan (1) Intractable back pain: Plan: 26 yo female with PMHx of chronic back pain, anxiety, and depression who presented to the emergency department with a worsening of her low back pain. #Intractable back pain -presented with lumbosacral pain with exacerbation over over left sacroiliac region with radiating numbness/tingling down back of left leg -has had recent fall -MRI last admission- mild disc protrusion at L5/S1, less likely cause of pain -CT A/P (02/06): nonobstructing kidney stones, UA:+calcium oxalate, +blood -HLA-B12 negative -MRI lumbar (02/12): no changes from 12/17/2021, minimal degenerative disc disease at L5-S1 -MRI pelvis (02/12): intramuscular edema left gluteus at myotendinous junction. -labs unremarkable -Sees pain mx as outpt. Most recently seen by them on 12/28 for an SI joint injection with some pain relief for ~1 week. -On last admission, patient was evaluated by Dr. Bennett who does not feel that patient was a candidate for surgery. -Pain regimen: -Continue home regimen of scheduled gabapentin, duloxetine (inc from 30 mg to 60 mg). -Cont. IV Toradol 30 mg q6h prn, acetaminophen 650mg q4h, heating pad, voltar en gel, baclofen 20mg qid. -did attempt TENS unit -hold OMT treatments; previously tx with direct myofascial and LAS over piriformis and lower lumbar -Was started on RADAR TESTER pump on 02/12 due to uncontrolled pain. -pain mx recs (02/14): discontinue RADAR TESTER, judicious utilization of opiate therapy, steroid therapy taper, possible lateral branch block outpatient -d/c'd RADAR TESTER, IV dilaudid resumed at .25 mg q4h prn alternating with oxycodone 10mg po q4h prn -d/c'd steroids due to agitation -persistent uncontrolled pain - increase dilaudid dose to 0.5mgs q6hrs. follow. #Depression -continue Wellbutrin. -cont. Cymbalta 60mg to help with any neuropathic pain #Anxiety -Continue home meds - hydroxyzine, Wellbutrin, Cymbalta -elevations in BP and HR, improving -continue hydroxyzine tid prn. -hydroxyzine should help with sleep as well. has been using oxycodone at night to help with sleep as outpatient. -continue propranolol as well for anxiety driven tachycardia. -[facility] liaison consult for setting up outpatient needs. #Hyperthyroidism -Not currently taking medication for this. -Most recent TSH normal #Constipation, improving -reportedly hadn't had BM since 01/24 -had multiple BMs with doculax suppository, miralax -cont. miralax scheduled #Urinary retention -was having some difficulty peeing with sensation of urgency -urology consulted (02/09): likely multifactorial including polypharmacy, constipation, pain; agree. -pyridium for bladder pain -treated for possible uti with keflex. d/c'd (02/13) -s/p multiple straight caths, callaway placed 02/09 and removed 02/11 -voiding since evening of 02/15, d/c'd RADAR TESTER helping -optimizing anxiety treatment should help. -to follow up with urology as outpatient for urodynamic testing -could also consider pelvic floor physiotherapy as outpatient DVT ppx: SCDs FEN/GI: regular Code Status: full Dispo: med/surg (2) Anxiety: (3) Chronic low back pain: (4) Urinary retention: (5) Hyperthyroidism: (6) Depression: (7) Constipation: Admission and Anticipated Discharge Date Admission Date: February 08, 2022 Supervising Physician Co-Signing Physician Notes Resident Physician Supervision Note: I independently interviewed and examined the patient and verified the lowry history and physical, reviewed labs and image studies and agree with resident Dr. Jaison Avila findings and care plan. Subjective Seen at bedside this morning. Continues to void, good BMs. Still in pain but relaxed and calm. Review of Systems Review of Systems: All systems reviewed & are unremarkable except as noted in Subjective Physical Exam Physical Exam: General: awake, laying in bed comfortably HEENT: NCAT, EOMI, moist mucous membranes Chest: CTA bilaterally, normal breath sounds Cardiac: RRR, no murmur Abdominal: soft, nondistended, nontender to palpation, no guarding Back/Extremities: small healing bruise near left thoracic spine consistent with reported fall on 02/03; left low back is tender upon palpation specifically along left piriformis and gluteal region as well as over lumbosacral region; paraesth esia globally along left leg, exacerbation with straight leg raise on left. Psych: Normal mood and affect Neuro: AOx3, no motor deficits, speech is clear, no peripheral sensory deficits Skin: no rash or erythema Results & Data Results & Data ([facility]) Vital Signs (Past 12 Hours) Vital Signs Temp Pulse Resp BP Pulse Ox 02/17/22 15:51 36.7 C 98 H 16 132/87 97 02/17/22 09:31 36.6 C 97 H 16 127/83 95 Resident Activity Tracking Resident Involvement: Resident Care Provided Care Provided: Adult Hospital Medicine
[2022-02-17] MEDS: ZOLPIDEM TARTRATE 5 MG TAB PO SCH (20:32)
[2022-02-17] MEDS: DULoxetine HCL 60 MG CAP PO SCH (20:34)
[2022-02-17] MEDS: GABAPENTIN 400 MG CAP PO SCH (20:34)
[2022-02-18] MEDS: HYDROmorphone INJ 0.5 MG/0.5 ML SYR IV PRN ×4 (03:42→19:59)
[2022-02-18] MEDS: oxyCODONE HCL IR 5 MG TAB (IMMEDIATE RELEASE) PO PRN ×4 (06:51→22:28)
[2022-02-18] MEDS ORDERED: methylPREDNISolone 4 MG TAB PO SCH (07:00)
[2022-02-18] MEDS: DICLOFENAC SOD 1% GEL 100 GM TUBE EXT SCH ×4 (07:41→20:00)
[2022-02-18] MEDS: PROPRANOLOL HCL 10 MG TAB PO SCH ×2 (07:43→19:55)
[2022-02-18] MEDS: CHOLECALCIFEROL 1,000 UNITS 25 MCG TAB PO SCH (07:43)
[2022-02-18] MEDS: FAMOTIDINE 20 MG TAB PO SCH ×2 (07:44→19:56)
[2022-02-18] MEDS: ACETAMINOPHEN 325 MG TAB PO SCH ×4 (07:44→19:56)
[2022-02-18] MEDS: BACLOFEN 20 MG TAB PO SCH ×4 (07:45→19:58)
[2022-02-18] MEDS: buPROPion XL 150 MG TABCR PO SCH (07:45)
[2022-02-18] MEDS: GABAPENTIN 100 MG CAP PO SCH ×2 (07:45→12:36)
[2022-02-18] MEDS: POLYETHYLENE (MIRALAX) 17 GM PACK PO SCH ×2 (07:46→20:02)
[2022-02-18] MEDS ORDERED: HYDROmorphone INJ 0.5 MG/0.5 ML SYR IV STA (10:45)
[2022-02-18] MEDS ORDERED: HYDROCORTISONE HC 2.5% CRM 30GM TUBE EXT PRN (12:02)
--- NOTE | 2022-02-18 13:37 | Hospitalist Progress Note ---
Date of Service February 18, 2022 Assessment & Plan (1) Intractable back pain: Plan: 26 yo female with PMHx of chronic back pain, anxiety, and depression who presented to the emergency department with a worsening of her low back pain. #Intractable back pain -presented with lumbosacral pain with exacerbation over left sacroiliac region with radiating numbness/tingling down back of left leg -has had recent fall -MRI last admission- mild disc protrusion at L5/S1, less likely cause of pain -CT A/P (02/06): nonobstructing kidney stones, UA:+calcium oxalate, +blood -HLA-B12 negative -MRI lumbar (02/12): no changes from 12/17/2021, minimal degenerative disc disease at L5-S1 -MRI pelvis (02/12): intramuscular edema left gluteus at myotendinous junction. -labs unremarkable -Sees pain mx as outpt. Most recently seen by them on 12/28 for an SI joint inj ection with some pain relief for ~1 week. -On last admission, patient was evaluated by Dr. Bennett who does not feel that patient was a candidate for surgery. -Pain regimen: -Continue home regimen of scheduled gabapentin, duloxetine (inc from 30 mg to 60 mg). -Cont. IV Toradol 30 mg q6h prn, acetaminophen 650mg q4h, heating pad, voltaren gel, baclofen 20mg qid. -did attempt TENS unit -Will try to revisit OMT treatments; previously tx with direct myofascial and LAS over piriformis and lower lumbar -Was started on INTERIOR DESIGN PROFESSIONAL pump on 02/12 due to uncontrolled pain. -pain mx recs (02/14): discontinue INTERIOR DESIGN PROFESSIONAL, judicious utilization of opiate therapy, steroid therapy taper, possible lateral branch block outpatient -d/c'd INTERIOR DESIGN PROFESSIONAL, now on IV dilaudid 0.5 mg q4h prn alternating with oxycodone 10mg po q4h prn -d/c'd steroids due to agitation -continue current management with adjustment of dilaudid dose #Depression -continue Wellbutrin. -cont. Cymbalta 60mg to help with any neuropathic pain #Anxiety -Continue home meds - hydroxyzine, Wellbutrin, Cymbalta -elevations in BP and HR, improving -continue hydroxyzine tid prn. -hydroxyzine should help with sleep as well. has been using oxycodone at night to help with sleep as outpatient. -continue propranolol as well for anxiety driven tachycardia. -[facility] liaison consult for setting up outpatient needs. #Hyperthyroidism -Not currently taking medication for this. -Most recent TSH normal #Constipation, improving -reportedly hadn't had BM since 01/24 -had multiple BMs with doculax suppository, miralax -cont. miralax scheduled #Hemorrhoid -Ordered Anusol topical to be applied to hemorrhoid BID. #Urinary retention -was having some difficulty peeing with sensation of urgency -urology consulted (02/09): likely multifactorial including polypharmacy, constipation, pain; agree. -pyridium for bladder pain -treated for possible uti with keflex. d/c'd (02/13) -s/p multiple straight caths, callaway placed 02/09 and removed 02/11 -voiding since evening of 02/15, d/c'd INTERIOR DESIGN PROFESSIONAL helping -optimizing anxiety treatment should help. -to follow up with urology as outpatient for urodynamic testing -could also consider pelvic floor physiotherapy as outpatient DVT ppx: SCDs FEN/GI: regular Code Status: full Dispo: med/surg (2) Anxiety: (3) Chronic low back pain: (4) Urinary retention: (5) Hyperthyroidism: (6) Depression: (7) Constipation: Admission and Anticipated Discharge Date Admission Date: February 08, 2022 Supervising Physician Co-Signing Physician Notes Resident Physician Supervision Note: I independently interviewed and examined the patient and verified the lowry history and physical, reviewed labs and image studies and agree with resident Dr. Barbosa findings and care plan. Subjective Patient feeling about the same as she did yesterday in terms of pain. Says she also has a new hemorrhoid that she would like cream for. Pain is mostly left lower back which she described to me as exacerbated by a fall down steps. She said this has been the longest time she has had an exacerbation of this pain. Denies any fevers, chills, nausea, vomiting. Review of Systems Constitutional: as per Subjective / HPI Physical Exam Constitutional: WD/WN, vitals as above Eyes: PERRL, conjunctivae normal, anicteric sclerae Respiratory: normal respiratory effort, lungs clear to auscultation Cardiovascular: RRR, no murmur, no edema Gastrointestinal (Abdomen): normal bowel sounds, soft, nontender, no hepatosplenomegaly Skin: Tenderness to palpation left lower back, most prominent near PSIS to the gluteal region (along piriformis) and at the lumbosacral region. Results & Data Results & Data ([facility]) Vital Signs (Past 12 Hours) Vital Signs Temp Pulse Resp BP Pulse Ox 02/18/22 07:33 36.4 C L 84 18 118/80 94 Resident Activity Tracking Resident Involvement: Resident Care Provided Care Provided: Adult Hospital Medicine
[2022-02-18] MEDS: ONDANSETRON INJ 2 MG/ML 2 ML VIAL IV PRN (18:39)
[2022-02-18 19:29] LABS: Appearance Urine Clear (Clear); Bacteria Urine Automated Negative (Negative); Bilirubin Urine Negative (Negative); Blood Urine 1+ (Negative); Color Urine Yellow; Epithelial Cell Urine Auto >30 /lpf (0-5); Glucose Urine UA Negative (Negative); Ketones Urine Negative (Negative); Leukocyte Esterase Urine Negative (Negative); Nitrite Urine Negative (Negative); Protein Urine Negative (Negative); Specific Gravity Urine 1.017 (1.000-1.030); Urobilinogen Urine Negative (Negative)
[2022-02-18] MEDS: ZOLPIDEM TARTRATE 5 MG TAB PO SCH (19:54)
[2022-02-18] MEDS: DULoxetine HCL 60 MG CAP PO SCH (19:55)
[2022-02-18] MEDS: GABAPENTIN 400 MG CAP PO SCH (19:59)
[2022-02-18] MEDS: METOCLOPRAMIDE HCL 10 MG TABLET PO PRN (20:12)
[2022-02-18] MEDS ORDERED: PROMETHAZINE HCL 25 MG TAB PO ONE (21:42)
[2022-02-19] MEDS: HYDROmorphone INJ 0.5 MG/0.5 ML SYR IV PRN ×5 (04:07→21:44)
[2022-02-19] MEDS ORDERED: methylPREDNISolone 4 MG TAB PO SCH (07:00)
[2022-02-19] MEDS: ACETAMINOPHEN 325 MG TAB PO SCH ×4 (08:00→20:20)
[2022-02-19] MEDS: buPROPion XL 150 MG TABCR PO SCH (08:01)
[2022-02-19] MEDS: CHOLECALCIFEROL 1,000 UNITS 25 MCG TAB PO SCH (08:01)
[2022-02-19] MEDS: BACLOFEN 20 MG TAB PO SCH ×4 (08:01→20:23)
[2022-02-19] MEDS: GABAPENTIN 100 MG CAP PO SCH ×2 (08:02→14:38)
[2022-02-19] MEDS: FAMOTIDINE 20 MG TAB PO SCH ×2 (08:02→20:24)
[2022-02-19] MEDS: DICLOFENAC SOD 1% GEL 100 GM TUBE EXT SCH ×4 (08:02→20:24)
[2022-02-19] MEDS: PROPRANOLOL HCL 10 MG TAB PO SCH ×2 (08:02→20:23)
[2022-02-19] MEDS: POLYETHYLENE (MIRALAX) 17 GM PACK PO SCH ×2 (08:04→18:24)
[2022-02-19] MEDS: oxyCODONE HCL IR 5 MG TAB (IMMEDIATE RELEASE) PO PRN ×3 (08:14→16:46)
--- NOTE | 2022-02-19 09:01 | Hospitalist Progress Note ---
Date of Service February 19, 2022 Assessment & Plan (1) Intractable back pain: Plan: 26 yo female with PMHx of chronic back pain, anxiety, and depression who presented to the emergency department with a worsening of her low back pain. #Intractable back pain -presented with lumbosacral pain with exacerbation over left sacroiliac region with radiating numbness/tingling down back of left leg -has had recent fall -MRI last admission- mild disc protrusion at L5/S1, less likely cause of pain -CT A/P (02/06): nonobstructing kidney stones, UA:+calcium oxalate, +blood -HLA-B12 negative -MRI lumbar (02/12): no changes from 12/17/2021, minimal degenerative disc disease at L5-S1 -MRI pelvis (02/12): intramuscular edema left gluteus at myotendinous junction. -labs unremarkable -Sees pain mx as outpt. Most recently seen by them on 12/28 for an SI joint inj ection with some pain relief for ~1 week. -On last admission, patient was evaluated by Dr. Bennett who does not feel that patient was a candidate for surgery. -Pain regimen: -Continue home regimen of scheduled gabapentin, duloxetine (inc from 30 mg to 60 mg). -Cont. IV Toradol 30 mg q6h prn, acetaminophen 650mg q4h, heating pad, voltaren gel, baclofen 20mg qid. -did attempt TENS unit -Will try to revisit OMT treatments; previously tx with direct myofascial and LAS over piriformis and lower lumbar -Was started on RESEARCH MECHANIC pump on 02/12 due to uncontrolled pain. -pain mx recs (02/14): discontinue RESEARCH MECHANIC, judicious utilization of opiate therapy, steroid therapy taper, possible lateral branch block outpatient -d/c'd RESEARCH MECHANIC, now on IV dilaudid 0.5 mg q3h prn alternating with oxycodone 10mg po q4h prn -d/c'd steroids due to agitation -continue current management with adjustment of dilaudid dose - 0.5mgs q3hrs #Depression -continue Wellbutrin. -cont. Cymbalta 60mg to help with any neuropathic pain #Anxiety -Continue home meds - hydroxyzine, Wellbutrin, Cymbalta -hydroxyzine tid prn. -hydroxyzine should help with sleep as well. has been using oxycodone at night to help with sleep as outpatient. -continue propranolol as well for anxiety driven tachycardia. -[facility] liaison consult for setting up outpatient needs. #Hyperthyroidism -Not currently taking medication for this. -Most recent TSH normal #Constipation, improving -reportedly hadn't had BM since 01/24 -had multiple BMs with doculax suppository, miralax -cont. miralax scheduled #Hemorrhoid -Ordered Anusol topical to be applied to hemorrhoid BID. #Urinary retention -was having some difficulty peeing with sensation of urgency -urology consulted (02/09): likely multifactorial including polypharmacy, constipation, pain; agree. -pyridium for bladder pain -treated for possible uti with keflex. d/c'd (02/13) -s/p multiple straight caths, callaway placed 02/09 and removed 02/11 -Issues w/ voiding today x1. Bladder scan >662cc, straight cath. -If continued urinary retention, can place Callaway again. -to follow up with urology as outpatient for urodynamic testing -could also consider pelvic floor physiotherapy as outpatient Microscopic hematuria -UA with RBC. ? sec to cath trauma. follow DVT ppx: SCDs FEN/GI: regular Code Status: full Dispo: med/surg (2) Anxiety: (3) Chronic low back pain: (4) Urinary retention: (5) Hyperthyroidism: (6) Depression: (7) Constipation: Admission and Anticipated Discharge Date Admission Date: February 08, 2022 Supervising Physician Co-Signing Physician Notes Resident Physician Supervision Note: I independently interviewed and examined the patient and verified the lowry history and physical, reviewed labs and image studies and agree with resident Dr. Barbosa findings and care plan. Subjective Patient's pain same as yesterday. Overnight she had pain wrapping around the left lower abdomen and nausea similar to when she has kidney stones. She says this improved after receiving Phenergan and hasn't bothered her since. Denies fevers, chills. Review of Systems Constitutional: as per Subjective / HPI Physical Exam Constitutional: WD/WN, vitals as above Eyes: PERRL, conjunctivae normal, anicteric sclerae Respiratory: normal respiratory effort, lungs clear to auscultation Cardiovascular: RRR, no murmur, no edema Gastrointestinal (Abdomen): normal bowel sounds, soft, nontender, no hepatosplenomegaly Skin: Tenderness to palpation left lower back, most prominent near PSIS to the gluteal region (along piriformis) and at the lumbosacral region. Results & Data Results & Data ([facility]) Vital Signs (Past 12 Hours) Vital Signs Temp Pulse Resp BP Pulse Ox 02/19/22 07:36 36.4 C L 75 16 116/80 94 02/18/22 22:40 36.5 C 99 H 16 110/75 94 Resident Activity Tracking Resident Involvement: Resident Care Provided Care Provided: Adult Hospital Medicine
[2022-02-19] MEDS: HYDROCORTISONE HC 2.5% CRM 30GM TUBE EXT SCH ×2 (12:26→20:25)
[2022-02-19 13:39] LABS: Appearance Urine Clear (Clear); Bacteria Urine Automated Negative (Negative); Bilirubin Urine Negative (Negative); Blood Urine Trace (Negative); Color Urine Yellow; Glucose Urine UA Negative (Negative); Ketones Urine Negative (Negative); Leukocyte Esterase Urine Negative (Negative); Nitrite Urine Negative (Negative); Protein Urine Negative (Negative); Specific Gravity Urine 1.016 (1.000-1.030); Urobilinogen Urine Negative (Negative); pH Urine 6.5 (4.5-7.5)
[2022-02-19] MEDS: PHENAZOPYRIDINE HCL 200 MG TAB PO PRN (19:19)
[2022-02-19] MEDS: ZOLPIDEM TARTRATE 5 MG TAB PO SCH (20:21)
[2022-02-19] MEDS: GABAPENTIN 400 MG CAP PO SCH (20:22)
[2022-02-19] MEDS: DULoxetine HCL 60 MG CAP PO SCH (20:22)
[2022-02-20] MEDS: HYDROmorphone INJ 0.5 MG/0.5 ML SYR IV PRN ×5 (06:02→21:43)
[2022-02-20] MEDS: oxyCODONE HCL IR 5 MG TAB (IMMEDIATE RELEASE) PO PRN ×4 (06:35→20:47)
[2022-02-20] MEDS: METOCLOPRAMIDE HCL 10 MG TABLET PO PRN (06:39)
[2022-02-20] MEDS: BACLOFEN 20 MG TAB PO SCH ×4 (08:18→20:46)
[2022-02-20] MEDS: GABAPENTIN 100 MG CAP PO SCH ×2 (08:18→13:16)
[2022-02-20] MEDS: POLYETHYLENE (MIRALAX) 17 GM PACK PO SCH ×2 (08:18→20:48)
[2022-02-20] MEDS: CHOLECALCIFEROL 1,000 UNITS 25 MCG TAB PO SCH (08:18)
[2022-02-20] MEDS: buPROPion XL 150 MG TABCR PO SCH (08:19)
[2022-02-20] MEDS: HYDROCORTISONE HC 2.5% CRM 30GM TUBE EXT SCH ×2 (08:19→20:46)
[2022-02-20] MEDS: FAMOTIDINE 20 MG TAB PO SCH ×2 (08:19→20:46)
[2022-02-20] MEDS: ACETAMINOPHEN 325 MG TAB PO SCH ×4 (08:19→20:47)
[2022-02-20] MEDS: DICLOFENAC SOD 1% GEL 100 GM TUBE EXT SCH ×4 (08:19→20:46)
[2022-02-20] MEDS: PROPRANOLOL HCL 10 MG TAB PO SCH ×2 (08:19→20:48)
[2022-02-20] MEDS: PHENAZOPYRIDINE HCL 200 MG TAB PO PRN ×2 (10:23→21:43)
[2022-02-20] MEDS ORDERED: LIDOCAINE 1% LOCAL 20 ML VIAL INJ ONE (12:59)
--- NOTE | 2022-02-20 14:22 | Procedure Note ---
Procedure Note Date of Service February 20, 2022 Note Left piriformis trigger point injections Anesthesia: None Complications: None Pre-procedure diagnosis: Left piriformis muscle spasm Description of procedure: The procedure risks, hazards, and alternatives were discussed with the patient and proper consent was obtained. The area over the myofascial spasm was prepped with alcohol utilizing sterile technique. After isolating 2 trigger points between fingertips a 22-gauge 3 inch needle was placed in the center of the myofascial spasm and a negative aspiration was performed. 3 cc of 1% lidocaine was injected into each trigger point. The patient tolerated the procedure well with any apparent difficulties or complications. There was no immediate relief of her spasm, but will follow-up with her later in the afternoon. Supervising Physician Co-Signing Physician Notes I was personally present for, and supervised Dr Leong during the entirety of above noted procedure. pt tolerated well. no complications noted Coding
--- NOTE | 2022-02-20 14:27 | Hospitalist Progress Note ---
Date of Service February 20, 2022 Assessment & Plan (1) Intractable back pain: Plan: 26 yo female with PMHx of chronic back pain, anxiety, and depression who presented to the emergency department with a worsening of her low back pain. #Intractable back pain -presented with lumbosacral pain with exacerbation over left sacroiliac region with radiating numbness/tingling down back of left leg -has had recent fall -MRI last admission- mild disc protrusion at L5/S1, less likely cause of pain -CT A/P (02/06): nonobstructing kidney stones, UA:+calcium oxalate, +blood -HLA-B12 negative -MRI lumbar (02/12): no changes from 12/17/2021, minimal degenerative disc disease at L5-S1 -MRI pelvis (02/12): intramuscular edema left gluteus at myotendinous junction. -labs unremarkable -Sees pain mx as outpt. Most recently seen by them on 12/28 for an SI joint inj ection with some pain relief for ~1 week. -On last admission, patient was evaluated by Dr. Bennett who does not feel that patient was a candidate for surgery. -Pain regimen: -Continue home regimen of scheduled gabapentin, duloxetine (inc from 30 mg to 60 mg). -Cont. IV Toradol 30 mg q6h prn, acetaminophen 650mg q4h, heating pad, voltaren gel, baclofen 20mg qid. -did attempt TENS unit -Will try to revisit OMT treatments; previously tx with direct myofascial and LAS over piriformis and lower lumbar -Was started on DREDGE OPERATOR pump on 02/12 due to uncontrolled pain. -pain mx recs (02/14): discontinue DREDGE OPERATOR, judicious utilization of opiate therapy, steroid therapy taper, possible lateral branch block outpatient -d/c'd DREDGE OPERATOR, now on IV dilaudid 0.5 mg q3h prn alternating with oxycodone 10mg po q4h prn -d/c'd steroids due to agitation -continue current management with adjustment of dilaudid dose -Performed trigger point injections of the left piriformis at bedside today see procedure note. #Depression -continue Wellbutrin. -cont. Cymbalta 60mg to help with any neuropathic pain #Anxiety -Continue home meds - hydroxyzine, Wellbutrin, Cymbalta -elevations in BP and HR, improving -continue hydroxyzine tid prn. -hydroxyzine should help with sleep as well. has been using oxycodone at night to help with sleep as outpatient. -continue propranolol as well for anxiety driven tachycardia. -[facility] liaison consult for setting up outpatient needs. #Hyperthyroidism -Not currently taking medication for this. -Most recent TSH normal #Constipation, improving -reportedly hadn't had BM since 01/24 -had multiple BMs with doculax suppository, miralax -cont. miralax scheduled #Hemorrhoid -Ordered Anusol topical to be applied to hemorrhoid BID. #Urinary retention -was having some difficulty peeing with sensation of urgency -urology consulted (02/09): likely multifactorial including polypharmacy, constipation, pain; agree. -pyridium for bladder pain -treated for possible uti with keflex. d/c'd (02/13) -s/p multiple straight caths, callaway placed 02/09 and removed 02/11 -Issues w/ voiding today x1. Bladder scan >662cc, straight cath. -If continued urinary retention, can place Callaway again. -optimizing anxiety treatment should help. -to follow up with urology as outpatient for urodynamic testing -could also consider pelvic floor physiotherapy as outpatient DVT ppx: SCDs FEN/GI: regular Code Status: full Dispo: med/surg (2) Anxiety: (3) Chronic low back pain: (4) Urinary retention: (5) Hyperthyroidism: (6) Depression: (7) Constipation: Admission and Anticipated Discharge Date Admission Date: February 08, 2022 Supervising Physician Co-Signing Physician Notes I personally examined the patient and verified all lowry points of history and exam, discussed case, and agree with decision making with Dr Leong back pain still intense, not really any better, but still largely the same vitals noted appearing fatigued and uncomfortable skin no rashes no pallor or icterus. otherwise exam as above ongoing intense biomechanical back pain -have done OMT x several iterations -aggressive med management -today trial piriformis trigger point injections -otherwise as above Subjective Patient seen at bedside this morning. No acute overnights reported. Patient still in a remarkable amount of pain in the area of the left SI joint as well as the body of the left piriformis area. Reports that an attempt was made to remove the Callaway catheter and she was able to urinate twice, however, later she was not able to urinate and had to be reinserted. Otherwise no real improvement in her pain compared to yesterday or any other day. Reports left-sided CVA tenderness. Otherwise no new complaints today Review of Systems Review of Systems: All systems reviewed & are unremarkable except as noted in HPI & below Physical Exam Constitutional: WD/WN, vitals as above Eyes: PERRL, conjunctivae normal, anicteric sclerae Respiratory: normal respiratory effort, lungs clear to auscultation Cardiovascular: RRR, no murmur, no edema Gastrointestinal (Abdomen): normal bowel sounds, soft, nontender, no hepatosplenomegaly Musculoskeletal: Tenderness to palpation of the left SI joint. Tenderness to palpation of the insertion points of the left piriformis muscle. Psychiatric: A+Ox3, euthymic affect Results & Data Results & Data ([facility]) Vital Signs (Past 12 Hours) Vital Signs Temp Pulse Resp BP Pulse Ox 02/20/22 07:50 36.8 C 92 H 16 133/90 98
--- NOTE | 2022-02-20 14:51 | Billing Data ---
Date of Service February 20, 2022 Coding Level of Care Code 44818 Subseq Hosp Care Lvl 3
[2022-02-20] MEDS: DULoxetine HCL 60 MG CAP PO SCH (20:46)
[2022-02-20] MEDS: GABAPENTIN 400 MG CAP PO SCH (20:47)
[2022-02-20] MEDS: ZOLPIDEM TARTRATE 5 MG TAB PO SCH (21:43)
[2022-02-21] MEDS: HYDROmorphone INJ 0.5 MG/0.5 ML SYR IV PRN ×3 (01:08→09:00)
[2022-02-21] MEDS: oxyCODONE HCL IR 5 MG TAB (IMMEDIATE RELEASE) PO PRN ×2 (04:06→11:38)
[2022-02-21] MEDS: ACETAMINOPHEN 325 MG TAB PO SCH ×4 (07:59→21:55)
[2022-02-21] MEDS: CHOLECALCIFEROL 1,000 UNITS 25 MCG TAB PO SCH (08:00)
[2022-02-21] MEDS: buPROPion XL 150 MG TABCR PO SCH (08:00)
[2022-02-21] MEDS: DICLOFENAC SOD 1% GEL 100 GM TUBE EXT SCH ×4 (08:01→22:09)
[2022-02-21] MEDS: FAMOTIDINE 20 MG TAB PO SCH ×2 (08:01→22:09)
[2022-02-21] MEDS: HYDROCORTISONE HC 2.5% CRM 30GM TUBE EXT SCH ×2 (08:01→22:14)
[2022-02-21] MEDS: GABAPENTIN 100 MG CAP PO SCH ×2 (08:02→13:28)
[2022-02-21] MEDS: PROPRANOLOL HCL 10 MG TAB PO SCH ×2 (08:02→22:14)
[2022-02-21] MEDS: POLYETHYLENE (MIRALAX) 17 GM PACK PO SCH ×2 (08:03→22:14)
[2022-02-21] MEDS: BACLOFEN 20 MG TAB PO SCH ×4 (08:04→22:08)
[2022-02-21] MEDS ORDERED: KETOROLAC 30 MG/ML VIAL IV ONE (14:56)
[2022-02-21] MEDS: TAPENTADOL HCL 50 MG TAB PO PRN ×2 (15:16→22:59)
[2022-02-21] MEDS ORDERED: LIDOCAINE 5% 1 PATCH TD SCH (16:00)
--- NOTE | 2022-02-21 17:02 | Hospitalist Progress Note ---
Date of Service February 21, 2022 Assessment & Plan (1) Intractable back pain: Plan: 26 yo female with PMHx of chronic back pain, anxiety, and depression who presented to the emergency department with a worsening of her low back pain. #Intractable back pain -presented with lumbosacral pain with exacerbation over left sacroiliac region with radiating numbness/tingling down back of left leg -has had recent fall -MRI last admission- mild disc protrusion at L5/S1, less likely cause of pain -CT A/P (02/06): nonobstructing kidney stones, UA:+calcium oxalate, +blood -HLA-B12 negative -MRI lumbar (02/12): no changes from 12/17/2021, minimal degenerative disc disease at L5-S1 -MRI pelvis (02/12): intramuscular edema left gluteus at myotendinous junction. -labs unremarkable -Sees pain mx as outpt. Most recently seen by them on 12/28 for an SI joint in jection with some pain relief for ~1 week. -On last admission, patient was evaluated by Dr. Bennett who does not feel that patient was a candidate for surgery. -Pain regimen: -Continue home regimen of scheduled gabapentin, duloxetine (inc from 30 mg to 60 mg). -Cont. IV Toradol 30 mg q6h prn, acetaminophen 650mg q4h, heating pad, voltaren gel, baclofen 20mg qid. -did attempt TENS unit -Will try to revisit OMT treatments; previously tx with direct myofascial and LAS over piriformis and lower lumbar -Was started on USED CAR MANAGER pump on 02/12 due to uncontrolled pain. -pain mx recs (02/14): discontinue USED CAR MANAGER, judicious utilization of opiate therapy, steroid therapy taper, possible lateral branch block outpatient -d/c'd USED CAR MANAGER, now on IV dilaudid 0.5 mg q3h prn alternating with oxycodone 10mg po q4h prn -d/c'd steroids due to agitation -Performed trigger point injections of the left piriformis at bedside today see procedure note (02/20) -IV Dilaudid discontinued today, with discontinuation patient had worsening back pain that got to the point that she was requesting more pain control other than oxycodone every 4 hours. -Gave her an additional dose of Toradol at that time, discontinued oxycodone, started Nucynta and will recheck tomorrow. #Depression -continue Wellbutrin. -cont. Cymbalta 60mg to help with any neuropathic pain #Anxiety -Continue home meds - hydroxyzine, Wellbutrin, Cymbalta -elevations in BP and HR, improving -continue hydroxyzine tid prn. -hydroxyzine should help with sleep as well. has been using oxycodone at night to help with sleep as outpatient. -continue propranolol as well for anxiety driven tachycardia. -[facility] liaison consult for setting up outpatient needs. #Hyperthyroidism -Not currently taking medication for this. -Most recent TSH normal #Constipation, improving -reportedly hadn't had BM since 01/24 -had multiple BMs with doculax suppository, miralax -cont. miralax scheduled #Hemorrhoid -Ordered Anusol topical to be applied to hemorrhoid BID. #Urinary retention -was having some difficulty peeing with sensation of urgency -urology consulted (02/09): likely multifactorial including polypharmacy, constipation, pain; agree. -pyridium for bladder pain -optimizing anxiety treatment should help. -to follow up with urology as outpatient for urodynamic testing -could also consider pelvic floor physiotherapy as outpatient -Reattempted voiding trial today, patient currently without Singh at the time of writing this note. DVT ppx: SCDs FEN/GI: regular Code Status: full Dispo: med/surg (2) Anxiety: (3) Chronic low back pain: (4) Urinary retention: (5) Hyperthyroidism: (6) Depression: (7) Constipation: Admission and Anticipated Discharge Date Admission Date: February 08, 2022 Supervising Physician Co-Signing Physician Notes I personally examined the patient and verified all lowry points of history and exam, discussed case, and agree with decision making with Dr Leong pain still not really changing. L SI / lumbar paraspinals. vitals noted appearing fatigued and uncomfortable skin no rashes no pallor or icterus. otherwise exam as above. post isometric relaxation focused on loosening piriformis/mobilizing L SI joint done x4 iterations. pt tolerated well ongoing intense biomechanical back pain -have done OMT x several days including today -aggressive med management - revamping again given lack of improvement. suspect pain is somatic as well as acute/chronic pain neurophysiology -02/20 trial piriformis trigger point injections -otherwise as above Subjective Patient seen at bedside this morning. It seems that the trigger point injections had no benefit in her pain as far as the patient can tell. Continues to have intractable lower back pain with no real response to any of the analgesics that she is on. Had physical therapy yesterday but did not feel that was very aggressive and did not feel worn out after. Otherwise nothing new to report today. Review of Systems Review of Systems: All systems reviewed & are unremarkable except as noted in HPI & below Physical Exam Constitutional: WD/WN, vitals as above Eyes: PERRL, conjunctivae normal, anicteric sclerae Respiratory: normal respiratory effort, lungs clear to auscultation Cardiovascular: RRR, no murmur, no edema Gastrointestinal (Abdomen): normal bowel sounds, soft, nontender, no hepatosplenomegaly Psychiatric: A+Ox3, euthymic affect Results & Data Results & Data ([facility]) Vital Signs (Past 12 Hours) Vital Signs Temp Pulse Pulse Resp BP Pulse Ox 02/21/22 14:41 36.3 C L 105 H 16 118/80 93 02/21/22 07:57 85 111/76 02/21/22 07:28 37.0 C 88 14 99/63 L 94 02/21/22 05:03 93 H 121/80
--- NOTE | 2022-02-21 17:09 | Billing Data ---
Date of Service February 21, 2022 Coding Level of Care Code 20619 Subseq Hosp Care Lvl 3
[2022-02-21] MEDS: DULoxetine HCL 60 MG CAP PO SCH (22:09)
[2022-02-21] MEDS: GABAPENTIN 400 MG CAP PO SCH (22:13)
[2022-02-21] MEDS: ZOLPIDEM TARTRATE 5 MG TAB PO SCH (22:15)
[2022-02-22] MEDS: TAPENTADOL HCL 50 MG TAB PO PRN (06:33)
--- NOTE | 2022-02-22 08:59 | Discharge Summary ---
Date of Service February 22, 2022 Admission HPI Per Admitting Provider The patient is a 26-year-old female with a past medical history including chronic back pain and anxiety/depression who presents to the emergency department with a worsening of her low back pain. Patient has had chronic back pain for several months without any inciting event that she can recall. She has been admitted several times for this and seen by pain management most recently during her admission on 12/20/21 and on 12/28 for a steroid injection. She has had minimal relief of moderate back pain since then, but notes it has been severe over the past 24 hours. She did fall down a few steps on Sunday, but did not exp erience any pain until last night. Her pain is consistent with her typical presentation, it is sharp, stabbing in the lower lumbar/sacral region with radiation in left buttocks and down her left leg/toes. No motor/sensory deficits. Otherwise, has been in her usual state of health, denies fever/chills, night sweats, weight loss, chest pain, palpitations, shortness of breath, abdominal pain, nausea, vomiting, constipation, diarrhea, bowel/bladder incontinence, or urinary symptoms. Had a fibroadenoma of the breast removed earlier this month without complications, was seen by her PCP on 02/03 who a djusted her gabapentin to 100mg during the daily and 400 mg in the evening, but she did not yet take the higher dose in the evening. Vital signs significant for elevated HR in 120s in setting of pain, otherwise VS wnl, stable. Labs largely unremarkable, although UA positive for blood, calcium oxalate. Lumbar XR showed no acute abnormality, Mild degenerative disc and degenerative facet joint disease is again seen at L5-S1. CT A/P showed nonobstructing left renal calculi, previously seen on prior imaging. No acute findings. Principal Diagnosis Biomechanical low back pain Discharge Exam Constitutional WD/WN, vitals as above Eyes PERRL, conjunctivae normal, anicteric sclerae Respiratory normal respiratory effort, lungs clear to auscultation Cardiovascular RRR, no murmur, no edema Gastrointestinal (Abdomen) normal bowel sounds, soft, nontender, no hepatosplenomegaly Psychiatric A+Ox3, euthymic affect Discharge Data Allergies Allergy/AdvReac Type Severity Reaction Status Date / Time No Known Allergies Allergy Verified 02/06/22 15:38 Consultations 02/06/22 15:40 ED Decision to Admit Stat 02/06/22 17:51 Consult Pain Management Routine 02/09/22 09:48 Consult Urology Routine 02/15/22 16:34 Consult Behavioral Health Liaison Routine Ordered Studies 02/06/22 14:19 CT abd pelvis wo con Urgent 02/12/22 09:17 MR lumbar spine wo/w con Routine MR pelvis wo/w con Routine Hospital Course (1) Intractable back pain: 26 yo female with PMHx of chronic back pain, anxiety, and depression who presented to the emergency department with a worsening of her low back pain. #Intractable back pain -presented with lumbosacral pain with exacerbation over left sacroiliac region with radiating numbness/tingling down back of left leg -has had recent fall -MRI last admission- mild disc protrusion at L5/S1, less likely cause of pain -CT A/P (02/06): nonobstructing kidney stones, UA:+calcium oxalate, +blood -HLA-B12 negative -MRI lumbar (02/12): no changes from 12/17/2021, minimal degenerative disc disease at L5-S1 -MRI pelvis (02/12): intramuscular edema left gluteus at myotendinous junction. -labs unremarkable -Sees pain mx as outpt. Most recently seen by them on 12/28 for an SI joint injection with some pain relief for ~1 week. -On last admission, patient was evaluated by Dr. Bennett who does not feel that patient was a candidate for surgery. -Was started on FRAME ALIGNER pump on 02/12 due to uncontrolled pain. -pain mx recs (02/14): discontinued FRAME ALIGNER, judicious utilization of opiate therapy, steroid therapy taper, possible lateral branch block outpatient -d/c'd FRAME ALIGNER -d/c'd steroids due to agitation -Performed trigger point injections of the left piriformis at bedside today see procedure note (02/20) -IV Dilaudid discontinued 02/21 -Patient was started on Nucynta on 02/21. Patient tolerated medication well and had good results bring her pain down to a 4 out of 10 when at rest. Patient reported that is the best she had felt in weeks. We will send her home today with Nucynta for pain management. Upon discharge patient does have a follow-up appointment with pain management on March 02, 2022. -Gabapentin regimen is 100 mg in the morning, 100 mg at noon, and 400 mg at night. -Continue baclofen as needed. -Continue scheduled Tylenol, duloxetine #Depression -continue Wellbutrin. -cont. Cymbalta 60mg to help with any neuropathic pain #Anxiety -Continue home meds - hydroxyzine, Wellbutrin, Cymbalta -elevations in BP and HR, improving -continue hydroxyzine tid prn. -hydroxyzine should help with sleep as well. has been using oxycodone at night to help with sleep as outpatient. -continue propranolol as well for anxiety driven tachycardia. -[facility] liaison consult for setting up outpatient needs. #Hyperthyroidism -Not currently taking medication for this. -Most recent TSH normal #Constipation, improving -reportedly hadn't had BM since 01/24 -had multiple BMs with doculax suppository, miralax -cont. miralax scheduled #Hemorrhoid -Ordered Anusol topical to be applied to hemorrhoid BID. #Urinary retention -was having some difficulty peeing with sensation of urgency -urology consulted (02/09): likely multifactorial including polypharmacy, constipation, pain; agree. -pyridium for bladder pain -optimizing anxiety treatment should help. -to follow up with urology as outpatient for urodynamic testing -could also consider pelvic floor physiotherapy as outpatient -Singh catheter was discontinued on 02/21. Patient was able to void better by the end of the day prior to discharge. Patient understanding that if she were to experience urinary retention or difficulty with urination she is to return to the emergency room for placement of Singh catheter. Sent referral for urology follow-up regarding urinary retention. Code Status: full Dispo: D/c home with self care (2) Anxiety: (3) Chronic low back pain: (4) Urinary retention: (5) Hyperthyroidism: (6) Depression: (7) Constipation: Total Time Total Time Spent Total Time Spent (In Minutes): <30 Discharge Plan Discharge Items Patient Disposition: Home - Self-Care Reason For Visit: INTRACTABLE BACK PAIN Discharge Diagnosis: Back pain Condition on Discharge: Good Activity: Resume your previous activity Non-emergency contact: Primary Care Provider, Urologist and Pain Management Call non-emergency contact if: your pain is not controlled Follow-up/Referrals: Dalton Mancini PA-C [Physician Robotics Systems Engineer] - 05/19/22 11:15 am Salvador Guzman MD [Physician] - (urodynamic study for urinary retention.Office will call patient with appointment date and time) Luisa Roldan MD [Primary Care Provider] - 03/02/22 10:20 am Diet: Regular Addtl Attending Provider Instructions: You were hospitalized at [facility] for evaluation of left low back pain. An MRI was performed of your lumbar spine and pelvis which showed minimal degenerative disc disease at L5-S1. Spine surgery was consulted, who did not feel as though your minimal disc degeneration was amenable (could be alleviated by) an operation. We treated you with multiple different pain medications during your stay and your level of discomfort improved by the time of your discharge. We would like you to continue the following regimen: Gabapentin 100mg in the morning, 100mg in the afternoon, and 400mg before bedtime. Cymbalta 60mg daily. Tylenol 100mg every 8 hours as needed. Ibuprofen 600mg every 4-6 hours as needed. You may also continue to apply topical Voltaren gel up to four times daily to the affected area. Nucynta 100mg every 6 hours as needed. Baclofen 10mg every 6 hours as needed. You may also apply topical lidocaine patches to the affected area. Please be mindful of the side effect of drowsiness/sedation of both balcofen and nucynta - ie do not plan to operate a motor vehicle while taking these medications. We would like you to follow up with [facility] on 03/02/22 at 11:15pm at which time additional interventions/therapies can be discussed. Due to your trouble urinating, we arranged an appointment for you to be seen by [facility]. If you feel as though you are retaining urine and cannot void, you should return to the [facility] ED for a catheter placement. Pending Studies at Discharge: No Stand-Alone Forms: My [facility], Opioid Pain Management, Work/School Release, Smoking Cessation Medications and DC Order Prescriptions: New cholecalciferol (vitamin D3) 25 mcg (1,000 unit) Capsule 2,000 unit PO QAM Qty: 30 RF: 0 Nucynta 100 mg tablet 100 mg PO Q6H PRN (Reason: pain) Qty: 60 RF: 0 Continued baclofen 10 mg tablet 10 mg PO TID Qty: 30 RF: 0 gabapentin 400 mg capsule 400 mg PO PM Qty: 30 RF: 5 metoclopramide HCl [Reglan] 10 mg tablet 10 mg PO UD PRN (Reason: nausea and vomiting) RF: 0 hydroxyzine pamoate [Vistaril] 25 mg capsule 25 mg PO QPM PRN (Reason: Anxiety) RF: 0 cholecalciferol (vitamin D3) 1,250 mcg (50,000 unit) capsule 50,000 unit PO WK RF: 0 desogestrel-ethinyl estradiol [Apri] 0.15-0.03 mg tablet 1 tab PO QAM RF: 0 gabapentin 100 mg capsule 100 mg PO .AM & MIDDAY RF: 0 bupropion HCl [Wellbutrin XL] 150 mg tablet extended release 24 hr 150 mg PO QAM RF: 0 Changed duloxetine 30 mg capsule,delayed release(DR/EC) 60 mg PO HS 30 Days Qty: 90 RF: 1 Discontinued oxycodone 5 mg tablet 5 mg PO Q12H PRN (Reason: pain, severe) Qty: 40 RF: 0 hydrocodone-acetaminophen 5-325 mg tablet 1 tab PO Q4H PRN (Reason: pain) Qty: 10 RF: 0 Discharge Orders: Discharge Order (Routine); Ordered 02/22/22 Ordered By: Samantha Dorsey/Other Patient Handouts: ED Back Care Tips, ED Back Exercises, Lumbar Admission Data Admit Date/Time: 02/08/22 18:28 Attending Provider: Dung Terry Admit Provider: Regina Ferrer Primary Care Provider: Luisa Roldan Other Providers: Diana Nava ; Regina Ferrer ; Salvador Guzman ; Dung Terry ; Sania Parikh Other Interventions: Discharge Summary Assessment (RN) Last Done: 02/22/22 13:31 Supervising Physician Co-Signing Physician Notes I personally examined the patient and verified all lowry points of history and exam, discussed case, and agree with decision making with Dr Dang Gardner doing a good bit betternow down to 4 out of 10. Has been able to sleep more, feels fairly tired. vitals noted appearing fatigued and uncomfortable skin no rashes no pallor or icterus. Neuro without focal deficits. ongoing intense biomechanical back pain -have done OMT x several dayswould likely have ongoing improvement from OMT as an outpatient -aggressive med management - suspect pain is somatic as well as acute/chronic pain neurophysiology -02/20 trial piriformis trigger point injections -Pain is now improved enough that she is stable to go homethe main variables in the last few days where the trigger point injections in her piriformis, and the switch from oxycodone to Nucynta. While either or both may be the reason that her pain is improved enough to be able to go home, I suspect more likely late effect/later benefit from the trigger point injections than the switch to Nucyntahowever, obviously for now we will continue both. Urinary retentionimprovingsafe/stable for homeknows to return to hospital if she cannot void, but it seems like this is not very likely to occur at this point
[2022-02-22] MEDS: POLYETHYLENE (MIRALAX) 17 GM PACK PO SCH (09:05)
[2022-02-22] MEDS: GABAPENTIN 400 MG CAP PO SCH ×2 (09:25→14:00)
[2022-02-22] MEDS: ACETAMINOPHEN 325 MG TAB PO SCH ×2 (09:25→12:55)
[2022-02-22] MEDS: DICLOFENAC SOD 1% GEL 100 GM TUBE EXT SCH ×2 (09:26→12:55)
[2022-02-22] MEDS: BACLOFEN 20 MG TAB PO SCH ×2 (09:26→12:55)
[2022-02-22] MEDS: buPROPion XL 150 MG TABCR PO SCH (09:26)
[2022-02-22] MEDS: CHOLECALCIFEROL 1,000 UNITS 25 MCG TAB PO SCH (09:27)
[2022-02-22] MEDS: PROPRANOLOL HCL 10 MG TAB PO SCH (09:27)
[2022-02-22] MEDS: FAMOTIDINE 20 MG TAB PO SCH (09:27)
[2022-02-22] MEDS: HYDROCORTISONE HC 2.5% CRM 30GM TUBE EXT SCH (09:28)
--- NOTE | 2022-02-22 16:30 | Billing Data ---
Date of Service February 22, 2022 Coding Level of Care Code D/C DAY MANAGEMENT <30 MINS
== END 2022-02-22 15:20 | disposition home or self-care (01) | DRG 552 ==
LOC: 3E 09:47 → ED 09:47 → SUATTDRO 14:24 → 3E 16:53 → SUATTDRO 02-08 18:28

== ENCOUNTER 2023-01-29 12:55 | Inpatient (IN) ==
[2023-01-29] MEDS ORDERED: ONDANSETRON INJ 2 MG/ML 2 ML VIAL IV STA ×2 (18:42→20:50)
[2023-01-29] MEDS ORDERED: HYDROmorphone INJ 0.5 MG/0.5 ML SYR IV STA ×2 (18:42→20:04)
[2023-01-29] MEDS ORDERED: SODIUM CHLORIDE 0.9% 1000ML 1,000 ML IV ONE (18:42)
--- NOTE | 2023-01-29 18:47 | Emergency Department Note ---
History of Present Illness General Chief complaint: Vaginal Pain Stated complaint: ABDOMINAL PAIN,VOMITING,?ENDOMETRIOSIS Time Seen by Provider: 01/29/23 18:33 Source: patient, family, RN notes reviewed and old records reviewed (I have reviewed the notes from the [facility] office visit today) Mode of arrival: ambulatory Limitations: no limitations History of Present Illness Maximum Pain Intensity: 7 This patient is 27-year-old female who comes in with continued abdominal pain she has been here several times as well as in the office today and saw Dr. Cordova. She was diagnosed with a hemorrhagic ovarian cyst on ultrasound yesterday. He had a CAT scan the day before which did not show any acute abnormalities and specifically there is no signs of appendicitis she continues to have abdominal pain they think it is endometriosis looking through the notes. She was seen in the office and went home and got very nauseated after trying to take her pain medication so she came to the ER. She does have some urinary discomfort at times she has been throwing up. No vaginal bleeding. No trauma or injury. Home Medications Medication Instructions Recorded Confirmed Type bupropion HCl 300 mg 24 hr tablet, 300 mg PO QAM #90 tabs 08/17/22 01/29/23 Rx extended release baclofen 10 mg tablet 10 mg PO .Daily-twice daily PRN 09/15/22 01/29/23 Rx Spasm #40 tabs ondansetron 4 mg disintegrating 4 - 8 mg PO Q8H PRN nausea and 09/24/22 01/29/23 Rx tablet vomiting #14 tabs propranolol 10 mg tablet 10 mg PO BID #60 tabs 10/03/22 01/29/23 Rx diclofenac sodium 75 mg 75 mg PO Q12H PRN pain #60 tabs 11/02/22 01/29/23 Rx tablet,delayed release oxymetazoline 1 % topical cream 1 applic topical DAILY #30 grams 11/07/2201/29 Rx (Rhofade) pregabalin 25 mg capsule (Lyrica) 25 mg PO TID #90 caps 12/08/22 01/29/23 Rx Spacer for Inhaler #1 ea 12/19/22 01/29/23 Rx albuterol sulfate 90 mcg/actuation 2 puff inhalation .COMPLEX PRN 12/19/22 01/29/23 Rx aerosol inhaler (ProAir HFA) shortness of breath or wheezing #8.5 grams trazodone 50 mg tablet 25 - 100 mg PO HS PRN insomnia #60 01/05/23 01/29/23 Rx tabs norethindrone (contraceptive) 0.35 0.35 mg PO DAILY #84 tabs 01/15/23 01/29/23 Rx mg tablet (Ana) hydrochlorothiazide 12.5 mg tablet 12.5 mg PO QAM #30 tabs 01/22/23 01/29/23 Rx buspirone 15 mg tablet 15 mg PO BID 01/26/23 01/29/23 History clonazepam 0.5 mg tablet (Klonopin) 0.5 mg PO DAILY PRN anxiety #30 01/26/23 01/29/23 Rx tabs ondansetron HCl 4 mg tablet 4 mg PO Q8H 3 days #9 tabs 01/27/23 01/29/23 Rx promethazine 25 mg tablet 25 mg PO Q6H PRN nausea and 01/28/23 01/29/23 Rx vomiting #10 tabs lamotrigine 100 mg tablet 100 mg PO DAILY 01/29/23 01/29/23 History norethindrone acetate 5 mg tablet 5 mg PO DAILY #30 tabs 01/29/23 01/29/23 Rx (Aygestin) promethazine 12.5 mg rectal 12.5 mg ME Q6H PRN sedation #12 ea 01/29/23 01/29/23 Rx suppository Allergies Allergy/AdvReac Type Severity Reaction Status Date / Time aluminum [From Drysol] Allergy Hives Verified 01/29/23 12:00 Past Med/Surg History Medical History Anxiety Bilateral nephrolithiasis Chronic low back pain Depression with anxiety Developmental dyslexia Encounter for pre-operative examination GERD (gastroesophageal reflux disease) Herniated disc LUMBAR AND CERVICAL (FULL ROM) History of kidney stones Myofascial pain Nausea Right ovarian cyst Sacroiliac joint pain Ureteral calculus, right Urinary retention Vitamin D deficiency HX, ? CURRENT STATUS Surgical History History of breast lump/mass excision (01/17/22) Excision of left breast mass. Dr. Jason 01/17/2022 Nasal fracture Repair of nasal fracture S/P cystoscopy with ureteral stent placement 12/05/20 Dr. Lamont Ambrose- Cystoscopy, Left ureteroscopy, Laser lithotripsy, Stone basket extraction of stone, Left retrograde pyelogram, Left ureteral stent placement Family History Mother No problems noted. Grandmother (Maternal) Lung cancer Oral cancer Other Cancer Hypertension Kidney stones Denies family history of Ovarian cancer Prostate cancer Heart disease Myocardial infarction Breast cancer Colorectal cancer Social History Smoking Status: Never smoker Tobacco Type: E-cigarettes / Vaping Second Hand Exposure: No; Hx Alcohol Use: Yes Alcohol type: wine and hard liquor Hx Substance Use: No Preferred Language: Maltese Communication Ability: Effective Visual Impairment: No Limitations Hearing Ability: Normal Briar Cutter Required: No Beliefs That Will Affect Care: None marital status: Single Current Living Situation: Family Current Living Situation Comment: MOM AND [employer]PD[employer] current occupational status: employed 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 @ [employer] How many Children do You have: 1 Feels Safe at Home: Yes Childhood Exposure to Second-Hand Smoke: No during the past year weight has: increased > 10 lbs Physical Activity Frequency: Daily Seatbelt Use: always Sunscreen Use: Yes Assistive Devices: None Review of Systems A total of 10 systems reviewed and were otherwise negative Physical Exam Vital Signs Vital Signs - 24 hr 01/29/23 12:56 01/29/23 18:41 01/29/23 19:39 Temperature 36.6 C Temperature Source Temporal Artery Scan Pulse Rate 86 Pulse Rate [Left Finger] 77 Respiratory Rate 20 18 Respiratory Effort / Characteristics Non-Labored Spontaneous Respiratory Depth Normal Blood Pressure 128/84 Blood Pressure [Left Arm] 138/101 H Blood Pressure Mean 98 Blood Pressure Mean [Left Arm] 113 Blood Pressure Position [Left Arm] Sitting Pulse Oximetry 97 98 99 Oxygen Delivery Method Room Air Room Air Sepsis Recent Fever Within 48 Hours No Sepsis New/Unexplained Change in Mental Status No Sepsis Action Taken by Nursing No Action Required 01/29/23 19:30 01/29/23 22:00 Temperature Temperature Source Pulse Rate Pulse Rate [Left Finger] 77 78 Respiratory Rate 20 18 Respiratory Effort / Characteristics Respiratory Depth Blood Pressure Blood Pressure [Left Arm] 117/86 126/80 Blood Pressure Mean Blood Pressure Mean [Left Arm] 96 95 Blood Pressure Position [Left Arm] Pulse Oximetry 99 96 Oxygen Delivery Method Room Air Room Air Sepsis Recent Fever Within 48 Hours Sepsis New/Unexplained Change in Mental Status Sepsis Action Taken by Nursing General: Well developed well nourished [id number] young female who in no acute distress, breathing comfortably on room air. Normal speech HEENT: Normal cephalic atraumatic. Pupils are equal round and reactive to light. Sclera anicteric extraocular movements are intact. Oropharynx is pink with moist mucous membranes. No swelling of the mouth lips or tongue. Neck: Supple with a midline trachea. No meningeal signs or stiffness, no JVD or bruits. No Stridor. Chest: Clear to auscultation bilaterally. No wheezes or rhonchi. No increased work of breathing. Heart: Regular rate and rhythm without murmurs or gallops. Abdomen: Soft nontender, nondistended without rebound guarding or rigidity. Extremities: No cyanosis clubbing or edema. No calf tenderness or assymetry Spine/Back. Non tender to palpation. No CVA tenderness Skin: Good turgor without rashes. Neurologic exam: Cranial nerves two through 12 are intact. Motor and sensation are intact and symmetrical throughout. Course Administered Medications Ketorolac Tromethamine (Ketorolac 30 Mg/Ml Vial) 30 mg IV Q6H [facility] Stop: 02/03/23 20:59 Last Admin: 01/29/23 21:13 Dose: 30 mg Documented By: CHIP Discontinued Medications Hydromorphone HCl (Hydromorphone Inj 0.5 Mg/0.5 Ml Syr) 0.5 mg IV NOW STA Stop: 01/29/23 18:43 Last Admin: 01/29/23 18:56 Dose: 0.5 mg Documented By: TG Hydromorphone HCl (Hydromorphone Inj 0.5 Mg/0.5 Ml Syr) 0.5 mg IV NOW STA Stop: 01/29/23 20:05 Last Admin: 01/29/23 20:08 Dose: 0.5 mg Documented By: CHIP Sodium Chloride (Nss 1000ml) 1,000 mls @ 999 mls/hr IV .Q1H1M ONE Stop: 01/29/23 19:42 Last Infusion: 01/29/23 19:58 Dose: 0 mls/hr Documented By: Admin: 01/29/23 18:51 Dose: 999 mls/hr Documented By: TG Morphine Sulfate (Morphine Sulfate 4 Mg/Ml 1 Ml Carp\Vial) Confirm Administered Dose 4 mg .ROUTE .STK-MED ONE Stop: 01/29/23 21:58 Last Admin: 01/29/23 21:59 Dose: 4 mg Documented By: CHIP Ondansetron HCl (Ondansetron Inj 2 Mg/Ml 2 Ml Vial) 4 mg IV NOW STA Stop: 01/29/23 18:43 Last Admin: 01/29/23 18:55 Dose: 4 mg Documented By: TG Ondansetron HCl (Ondansetron Inj 2 Mg/Ml 2 Ml Vial) 4 mg IV NOW STA Stop: 01/29/23 20:51 Last Admin: 01/29/23 20:52 Dose: 4 mg Documented By: CHIP Medical Decision Making Differential Diagnosis Hemorrhagic ovarian cyst, , anemia, electrolyte or metabolic abnormality, endometriosis, intra-abdominal process, infection Medical Records Attestation: I reviewed the patient's medical records. Home Medications Current Medication List: was personally reviewed by me Laboratory Data Attestation: I reviewed the patient's lab results. 01/29/23 18:52 01/29/23 18:52 Lab Results 01/29/23 01/29/23 01/29/23 Range/Units 18:38 18:52 18:52 WBC 4.97 (4.8-10.8) K/ul RBC 4.16 L (4.20-5.40) M/uL Hgb 12.4 (12.0-16.0) g/dl Hct 36.8 L (37.0-47.0) % MCV 88.5 (80.0-100.0) fL MCH 29.8 (25.0-34.0) pg MCHC 33.7 (32.0-36.0) g/dL RDW Std Deviation 37.2 (36.4-46.3) fL RDW Coeff of Baldo 11.6 (11.5-14.5) % Plt Count 212 (130-400) K/uL MPV 9.7 (9.4-12.4) fL Immature Gran % (Auto) 0.4 % Neut % (Auto) 53.7 % Lymph % (Auto) 35.0 % [place] % (Auto) 9.9 % Eos % (Auto) 0.6 % Baso % (Auto) 0.4 % Neut # (Auto) 2.67 (1.40-6.50) K/uL Lymph # (Auto) 1.74 (1.2-3.4) K/uL [place] # (Auto) 0.49 (0.11-0.59) K/uL Eos # (Auto) 0.03 (0-0.50) K/uL Baso # (Auto) 0.02 (0-0.2) K/uL Immature Gran # (Auto) 0.02 (0.01-0.20) K/uL Sodium 136 (136-145) mmol/L Potassium 3.5 (3.5-5.1) mmol/L Chloride 106 (98-107) mmol/L Carbon Dioxide 25 (21-32) mmol/L Anion Gap 5 (3-11) BUN 9 (6-23) mg/dl Creatinine 0.64 (0.6-1.2) mg/dl Est Cr Clr Drug Dosing 135.2 ml/min Est GFR ( Amer) 140.7 ml/min Est GFR (Non-Af Amer) 121.4 ml/min BUN/Creatinine Ratio 14.1 (10-20) Glucose 93 (70-99(Fasting)) mg/dl Calcium 9.0 (8.6-10.3) mg/dl Total Bilirubin 0.3 (0.2-1.0) mg/dl AST 49 H (13-39) U/L ALT 75 H (7-52) U/L Alkaline Phosphatase 73 (34-104) U/L Total Protein 7.0 (6.0-8.3) gm/dl Albumin 4.2 (3.4-5.0) gm/dl Globulin 2.8 (2.5-4.0) gm/dl Albumin/Globulin Ratio 1.5 (0.9-2) Lipase 50 (11-82) U/L HCG, Qual (Negative) Urine Color Yellow Urine Appearance Clear (Clear) Urine pH 8.0 H (4.5-7.5) Ur Specific [place] 1.017 (1.000-1.030) Urine Protein Negative (Negative) Urine Glucose (UA) Negative (Negative) Urine Ketones Negative (Negative) Urine Blood Negative (Negative) Urine Nitrite Negative (Negative) Urine Bilirubin Negative (Negative) Urine Urobilinogen Negative (Negative) Ur Leukocyte Esterase Negative (Negative) SARS-CoV-2, RNA, NAAT (NEGATIVE) 01/29/23 01/29/23 Range/Units 18:52 21:37 WBC (4.8-10.8) K/ul RBC (4.20-5.40) M/uL Hgb (12.0-16.0) g/dl Hct (37.0-47.0) % MCV (80.0-100.0) fL MCH (25.0-34.0) pg MCHC (32.0-36.0) g/dL RDW Std Deviation (36.4-46.3) fL RDW Coeff of Baldo (11.5-14.5) % Plt Count (130-400) K/uL MPV (9.4-12.4) fL Immature Gran % (Auto) % Neut % (Auto) % Lymph % (Auto) % [place] % (Auto) % Eos % (Auto) % Baso % (Auto) % Neut # (Auto) (1.40-6.50) K/uL Lymph # (Auto) (1.2-3.4) K/uL [place] # (Auto) (0.11-0.59) K/uL Eos # (Auto) (0-0.50) K/uL Baso # (Auto) (0-0.2) K/uL Immature Gran # (Auto) (0.01-0.20) K/uL Sodium (136-145) mmol/L Potassium (3.5-5.1) mmol/L Chloride (98-107) mmol/L Carbon Dioxide (21-32) mmol/L Anion Gap (3-11) BUN (6-23) mg/dl Creatinine (0.6-1.2) mg/dl Est Cr Clr Drug Dosing ml/min Est GFR ( Amer) ml/min Est GFR (Non-Af Amer) ml/min BUN/Creatinine Ratio (10-20) Glucose (70-99(Fasting)) mg/dl Calcium (8.6-10.3) mg/dl Total Bilirubin (0.2-1.0) mg/dl AST (13-39) U/L ALT (7-52) U/L Alkaline Phosphatase (34-104) U/L Total Protein (6.0-8.3) gm/dl Albumin (3.4-5.0) gm/dl Globulin (2.5-4.0) gm/dl Albumin/Globulin Ratio (0.9-2) Lipase (11-82) U/L HCG, Qual Negative (Negative) Urine Color Urine Appearance (Clear) Urine pH (4.5-7.5) Ur Specific [place] (1.000-1.030) Urine Protein (Negative) Urine Glucose (UA) (Negative) Urine Ketones (Negative) Urine Blood (Negative) Urine Nitrite (Negative) Urine Bilirubin (Negative) Urine Urobilinogen (Negative) Ur Leukocyte Esterase (Negative) SARS-CoV-2, RNA, NAAT NEGATIVE (NEGATIVE) MDM Narrative This patient comes in as described above. She was placed in room B11. She is here for treatment and evaluation of ongoing abdominal pain. She was seen by the supervisor sawmill today and went home and was having more pain and nausea so came back to the ER for her third visit. Looking at Dr. Cordova's note she did talk to Dr. Eduardo and I called Dr. Eduardo, IV access was established and I hydrated the patient with an IV normal saline bolus gave her Dilaudid IV and Zofran IV. Blood work was obtained. She was reassessed. She has no white count or fever to suggest infection. She has no significant anemia. She is noticing electrolyte or metabolic abnormalities her liver functions are minimally elevated. Uncertain what the etiology is for her pain she does have a hemorrhagic cyst that could be related to that there is thought that it could be endometriosis or potential other etiology. Given the fact that she has been here multiple times as well as in the supervisor sawmill office earlier, I did consult Dr. Eduardo he saw the patient he was going to admit her for further treatment chavo luation for pelvic pain. Impression & Plan Pelvic pain, Nausea & vomiting, Not currently , Haemorrhagic cyst, Lab test negative for COVID-19 virus Discharge Plan Visit Data Chief Complaint: Vaginal Pain Stated Complaint: ABDOMINAL PAIN,VOMITING,?ENDOMETRIOSIS ED Provider: Josh Haney Discharge Problem: Pelvic pain, Nausea & vomiting, Not currently , Haemorrhagic cyst, Lab test negative for COVID-19 virus Patient Disposition: Admitted As Inpatient Discharge Instructions Interventions: ED Discharge Assessment Last Done: 01/29/23 22:38 Forms Stand Alone Forms: My [facility] Prescriptions Prescriptions: No Action pregabalin [Lyrica] 25 mg capsule 25 mg PO TID Qty: 90 2RF baclofen 10 mg tablet 10 mg PO .Daily-twice daily PRN (Reason: Spasm) Qty: 40 5RF trazodone 50 mg tablet 25 - 100 mg PO HS MDD 100mg PRN (Reason: insomnia) Qty: 60 2RF clonazepam [Klonopin] 0.5 mg tablet 0.5 mg PO DAILY PRN (Reason: anxiety) Qty: 30 1RF buspirone 15 mg tablet 15 mg PO BID bupropion HCl 300 mg tablet extended release 24 hr 300 mg PO QAM Qty: 90 1RF propranolol 10 mg tablet 10 mg PO BID Qty: 60 1RF norethindrone (contraceptive) [Ana] 0.35 mg tablet 0.35 mg PO DAILY Qty: 84 3RF (DME) Spacer for Inhaler Misc See Rx Instructions .MEDSUPPLY Qty: 1 0RF Rx Instructions: use with albuterol inhaler albuterol sulfate [ProAir HFA] 90 mcg/actuation HFA aerosol inhaler 2 puff inhalation .COMPLEX PRN (Reason: shortness of breath or wheezing) Qty: 8.5 3RF Rx Instructions: 2 puff inhalation q4-6 hrs PRN; promethazine 12.5 mg suppository 12.5 mg ME Q6H PRN (Reason: sedation) Qty: 12 0RF norethindrone acetate [Aygestin] 5 mg tablet 5 mg PO DAILY Qty: 30 2RF Rhofade 1 % cream 1 applic topical DAILY Qty: 30 0RF diclofenac sodium 75 mg tablet,delayed release (DR/EC) 75 mg PO Q12H PRN (Reason: pain) Qty: 60 5RF hydrochlorothiazide 12.5 mg tablet 12.5 mg PO QAM Qty: 30 2RF promethazine 25 mg tablet 25 mg PO Q6H PRN (Reason: nausea and vomiting) Qty: 10 0RF Rx Instructions: May cause drowsiness ondansetron 4 mg tablet,disintegrating 4 - 8 mg PO Q8H PRN (Reason: nausea and vomiting) Qty: 14 0RF ondansetron HCl 4 mg tablet 4 mg PO Q8H 3 Days Qty: 9 0RF lamotrigine 100 mg tablet 100 mg PO DAILY Referrals Referrals: Luisa Roldan MD [Primary Care Provider] -
[2023-01-29 19:06] LABS: Appearance Urine Clear (Clear); Bilirubin Urine Negative (Negative); Blood Urine Negative (Negative); Color Urine Yellow; Glucose Urine UA Negative (Negative); Ketones Urine Negative (Negative); Leukocyte Esterase Urine Negative (Negative); Nitrite Urine Negative (Negative); Protein Urine Negative (Negative); Specific Gravity Urine 1.017 (1.000-1.030); Urobilinogen Urine Negative (Negative)
[2023-01-29 19:15] LABS: Basophils # (auto) 0.02 K/uL (0-0.2); Basophils % (auto) 0.4 %; Eosinophils # (auto) 0.03 K/uL (0-0.50); Eosinophils % (auto) 0.6 %; Hematocrit (blood only) 36.8 % (37.0-47.0); Hemoglobin 12.4 g/dl (12.0-16.0); Immature Granulocytes # (auto) 0.02 K/uL (0.01-0.20); Immature Granulocytes % (auto) 0.4 %; Lymphocytes # (auto) 1.74 K/uL (1.2-3.4); Mean Corpuscular Hemoglobin 29.8 pg (25.0-34.0); Mean Corpuscular Hgb Conc 33.7 g/dL (32.0-36.0); Mean Corpuscular Volume 88.5 fL (80.0-100.0); Mean Platelet Volume 9.7 fL (9.4-12.4); Monocytes # (auto) 0.49 K/uL (0.11-0.59); Monocytes % (auto) 9.9 %; Neutrophils # (auto) 2.67 K/uL (1.40-6.50); Neutrophils % (auto) 53.7 %; Platelet Count 212 K/uL (130-400); RDW Coefficient of Variation 11.6 % (11.5-14.5); RDW Standard Deviation 37.2 fL (36.4-46.3); Red Blood Count 4.16 M/uL (4.20-5.40); White Blood Count 4.97 K/ul (4.8-10.8)
[2023-01-29 19:28] LABS: Albumin Globulin Ratio 1.5 (0.9-2); Albumin Level 4.2 gm/dl (3.4-5.0); BUN Creatinine Ratio 14.1 (10-20); Bilirubin,Total 0.3 mg/dl (0.2-1.0); Creatinine Clr Calc Pharmacy 135.2 ml/min; Est GFR (African American) 140.7 ml/min; Est GFR (Non-African American) 121.4 ml/min; Globulin 2.8 gm/dl (2.5-4.0); Potassium 3.5 mmol/L (3.5-5.1)
[2023-01-29 19:37] LABS: Pregnancy Test, Serum Negative (Negative)
[2023-01-29] MEDS ORDERED: ACETAMINOPHEN 1,000 MG/100 ML VIAL IV PRN (20:58)
[2023-01-29] MEDS: KETOROLAC 30 MG/ML VIAL IV SCH (21:13)
[2023-01-29] MEDS ORDERED: MoRPHine SULFATE 4 MG/ML 1 ML CARP\\VIAL ONE (21:57)
[2023-01-29] MEDS ORDERED: PROMETHAZINE HCL 25 MG in SODIUM CHLORIDE 0.9% 50 ML IV PRN (22:24)
--- NOTE | 2023-01-29 22:38 | OB/GYN Consultation ---
Date of Consultation January 29, 2023 Assessment & Plan (1) Acute pelvic pain: Damaris is a 27-year-old presents to the emergency department secondary to nausea, vomiting and severe pelvic pain. Ultrasound was notable for an adnexal cyst possibly hemorrhagic. Patient has a long history of chronic pelvic pain and reports that she typically has nausea and vomiting with pain episodes. Patient has been unable to keep down pain medications secondary to the nausea and vomiting. 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 acute surgical intervention does not appear indicated based on exam and findings from imaging. will admit patient for pain and nausea /vomiting management. will transition to p.o. medications tomorrow to assess tolerance of p.o. medications. greater than 60 minutes was spent in evaluation of patient including of evaluation of imaging, review of history, and discussion with patient (2) Haemorrhagic cyst: History of Present Illness History of Present Illness Damaris is a 27-year-old presents to the ED for a 4th visit secondary to nausea vomiting and abdominal pelvic pain. patient had CT scan and ultrasound which were only for a 2.8 cm complex functional cyst seen on ultrasound yesterday. Cyst not noted on prior imaging including CT scan seen on 01/27. Patient has a long history of chronic pain with frequent back pain flares and has been admitted on prior occasions pain episodes. patient reports that menstrual cycles are monthly with normal duration and heavy. She reports moderate dysmenorrhea but denies any severe or chronic pelvic pain. Patient denies any similar episodes of previously. Patient reports that pain initially started on Sunday evening as a bilateral pelvic pain. She reports there is a constant baseline cramping pain with flaring episodes of sharp stabbing pain. patient has accompanying nausea and vomiting. Patient reports that she typically has nausea and vomiting when she has pain episodes. Patient has been unable to keep pain medications down due to nausea and vomiting. white count in the ED was 4. patient denies any infectious symptoms. reports pain has been relatively stable since onset. Patient is currently on multiple medications for chronic pain. Allergies Allergy/AdvReac Type Severity Reaction Status Date / Time aluminum [From Drysol] Allergy Hives Verified 01/29/23 12:00 Home Medications Medication Instructions Recorded Confirmed Type bupropion HCl 300 mg 24 hr tablet, 300 mg PO QAM #90 tabs 08/17/22 01/29/23 Rx extended release baclofen 10 mg tablet 10 mg PO .Daily-twice daily PRN 09/15/22 01/29/23 Rx Spasm #40 tabs ondansetron 4 mg disintegrating 4 - 8 mg PO Q8H PRN nausea and 09/24/22 01/29/23 Rx tablet vomiting #14 tabs propranolol 10 mg tablet 10 mg PO BID #60 tabs 10/03/22 01/29/23 Rx diclofenac sodium 75 mg 75 mg PO Q12H PRN pain #60 tabs 11/02/22 01/29/23 Rx tablet,delayed release oxymetazoline 1 % topical cream 1 applic topical DAILY #30 grams 11/07/22 01/29/23 Rx (Rhofade) pregabalin 25 mg capsule (Lyrica) 25 mg PO TID #90 caps 12/08/22 01/29/23 Rx Spacer for Inhaler #1 ea 12/19/22 01/29/23 Rx albuterol sulfate 90 mcg/actuation 2 puff inhalation .COMPLEX PRN 12/19/22 01/29/23 Rx aerosol inhaler (ProAir HFA) shortness of breath or wheezing #8.5 grams trazodone 50 mg tablet 25 - 100 mg PO HS PRN insomnia #60 01/05/23 01/29/23 Rx tabs norethindrone (contraceptive) 0.35 0.35 mg PO DAILY #84 tabs 01/15/23 01/29/23 Rx mg tablet (Ana) hydrochlorothiazide 12.5 mg tablet 12.5 mg PO QAM #30 tabs 01/22/23 01/29/23 Rx buspirone 15 mg tablet 15 mg PO BID 01/26/23 01/29/23 History clonazepam 0.5 mg tablet (Klonopin) 0.5 mg PO DAILY PRN anxiety #30 01/26/23 01/29/23 Rx tabs ondansetron HCl 4 mg tablet 4 mg PO Q8H 3 days #9 tabs 01/27/23 01/29/23 Rx promethazine 25 mg tablet 25 mg PO Q6H PRN nausea and 01/28/23 01/29/23 Rx vomiting #10 tabs lamotrigine 100 mg tablet 100 mg PO DAILY 01/29/23 01/29/23 History norethindrone acetate 5 mg tablet 5 mg PO DAILY #30 tabs 01/29/23 01/29/23 Rx (Aygestin) promethazine 12.5 mg rectal 12.5 mg [place] Q6H PRN sedation #12 ea 01/29/23 01/29/23 Rx suppository Patient History Medical History Anxiety Bilateral nephrolithiasis Chronic low back pain Depression with anxiety Developmental dyslexia Encounter for pre-operative examination GERD (gastroesophageal reflux disease) Herniated disc LUMBAR AND CERVICAL (FULL ROM) History of kidney stones Myofascial pain Nausea Right ovarian cyst Sacroiliac joint pain Ureteral calculus, right Urinary retention Vitamin D deficiency HX, ? CURRENT STATUS Surgical History History of breast lump/mass excision (01/17/22) Excision of left breast mass. Dr. Jason 01/17/2022 Nasal fracture Repair of nasal fracture S/P cystoscopy with ureteral stent placement 12/05/20 Dr. Lamont Ambrose- Cystoscopy, Left ureteroscopy, Laser lithotripsy, Stone basket extraction of stone, Left retrograde pyelogram, Left ureteral stent placement Family History Mother No problems noted. Grandmother (Maternal) Lung cancer Oral cancer Other Cancer Hypertension Kidney stones Denies family history of Ovarian cancer Prostate cancer Heart disease Myocardial infarction Breast cancer Colorectal cancer Social History Smoking Status: Never smoker Tobacco Type: E-cigarettes / Vaping Second Hand Exposure: No; Hx Alcohol Use: Yes Alcohol type: wine and hard liquor Hx Substance Use: No Preferred Language: Mongolian Communication Ability: Effective Visual Impairment: No Limitations Hearing Ability: Normal Shield Runner Required: No Beliefs That Will Affect Care: None marital status: Single Current Living Situation: Family Current Living Situation Comment: MOM AND STEPDAD current occupational status: employed 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 @ [employer] How many Children do You have: 1 Feels Safe at Home: Yes Childhood Exposure to Second-Hand Smoke: No during the past year weight has: increased > 10 lbs Physical Activity Frequency: Daily Seatbelt Use: always Sunscreen Use: Yes Assistive Devices: None Physical Exam Gastrointestinal (Abdomen): Inspection/Auscultation: abdomen normal to inspection; abdomen not distended Percussion/Palpation: + abdomen tender ( neural pelvic) and abdomen soft; no guarding and abdomen not rigid Psychiatric: A+Ox3, euthymic affect Genitourinary: normal external appearance; no external lesions and no external erythema Speculum/Bimanual Exam: normal appearance of the vagina and + adnexal tenderness ( moderate bilateral); no cervical tenderness, no vaginal tenderness, no vaginal erythema, no cervical motion tenderness, uterus not en larged and uterus nontender Results & Data Vital Signs (Past 12 Hours) Vital Signs Temp Pulse Pulse Resp BP BP Pulse Ox 01/29/23 19:30 77 20 117/86 99 01/29/23 19:39 99 01/29/23 18:41 77 18 138/101 H 98 01/29/23 12:56 36.6 C 86 20 128/84 97 O2 Del Method 01/29/23 19:30 Room Air 01/29/23 19:39 Room Air 01/29/23 18:41 01/29/23 12:56 Room Air PG Care Time/CCT Total # of Minutes Spent Total Time Spent with Patient: Total time spent is greater than 50% in coordination of care (as documented) at patient's floor/unit and/or counseling patient: Coding Level of Care Code 65810 INT INP/OBS CARE 2/55MIN Diagnoses Acute pelvic pain R10.2 Haemorrhagic cyst
[2023-01-29] MEDS ORDERED: ALBUTEROL HFA 8 GM INHALER INH PRN (22:58)
[2023-01-29] MEDS ORDERED: BACLOFEN 10 MG TAB PO PRN (22:58)
[2023-01-29] MEDS ORDERED: DICLOFENAC SODIUM 75 MG TABCR PO PRN (22:58)
[2023-01-29] MEDS ORDERED: MoRPHine SULFATE 4 MG/ML 1 ML CARP\\VIAL IV PRN (22:58)
[2023-01-30] MEDS ORDERED: ONDANSETRON 4 MG OD TAB PO SCH
[2023-01-30] MEDS ORDERED: Nursing to Pharmacy Communication SCH ×2 (00:15→05:00)
[2023-01-30] MEDS: busPIRone 15 MG TAB PO SCH ×3 (00:18→20:29)
[2023-01-30] MEDS: clonazePAM 0.5 MG TAB PO PRN ×2 (00:23→20:38)
[2023-01-30] MEDS: PROPRANOLOL HCL 10 MG TAB PO SCH ×3 (00:23→20:32)
[2023-01-30] MEDS: lamoTRIgine 100 MG TAB PO ONE ×2 (00:24→00:59)
[2023-01-30] MEDS: PREGABALIN 25 MG CAP PO SCH ×4 (00:24→20:31)
[2023-01-30] MEDS: ONDANSETRON INJ 2 MG/ML 2 ML VIAL IV SCH ×2 (02:06→08:20)
[2023-01-30] MEDS: KETOROLAC 30 MG/ML VIAL IV SCH (03:30)
[2023-01-30] MEDS: MoRPHine SULFATE 4 MG/ML 1 ML CARP\\VIAL IV PRN ×2 (05:19→07:55)
[2023-01-30 07:11] LABS: Basophils # (auto) 0.02 K/uL (0-0.2); Basophils % (auto) 0.4 %; Eosinophils # (auto) 0.06 K/uL (0-0.50); Eosinophils % (auto) 1.3 %; Hematocrit (blood only) 34.2 % (37.0-47.0); Hemoglobin 11.6 g/dl (12.0-16.0); Immature Granulocytes # (auto) 0.01 K/uL (0.01-0.20); Immature Granulocytes % (auto) 0.2 %; Lymphocytes % (auto) 34.6 %; Mean Corpuscular Hgb Conc 33.9 g/dL (32.0-36.0); Mean Corpuscular Volume 88.4 fL (80.0-100.0); Mean Platelet Volume 9.8 fL (9.4-12.4); Monocytes # (auto) 0.51 K/uL (0.11-0.59); Neutrophils # (auto) 2.43 K/uL (1.40-6.50); Neutrophils % (auto) 52.5 %; Platelet Count 179 K/uL (130-400); RDW Coefficient of Variation 11.7 % (11.5-14.5); RDW Standard Deviation 37.4 fL (36.4-46.3); Red Blood Count 3.87 M/uL (4.20-5.40); White Blood Count 4.63 K/ul (4.8-10.8)
[2023-01-30 07:14] LABS: Albumin Globulin Ratio 1.6 (0.9-2); Albumin Level 3.8 gm/dl (3.4-5.0); BUN Creatinine Ratio 10.9 (10-20); Bilirubin,Total 0.4 mg/dl (0.2-1.0); Calcium 8.6 mg/dl (8.6-10.3); Creatinine Clr Calc Pharmacy 63.8 ml/min; Est GFR (African American) 140.7 ml/min; Est GFR (Non-African American) 121.4 ml/min; Globulin 2.4 gm/dl (2.5-4.0); Potassium 3.7 mmol/L (3.5-5.1); Total Protein 6.2 gm/dl (6.0-8.3)
[2023-01-30] MEDS: buPROPion XL 300 MG TABCR PO SCH (07:57)
[2023-01-30] MEDS: NORETHINDRONE 5 MG TAB PO SCH (07:57)
[2023-01-30] MEDS ORDERED: ACETAMINOPHEN 325 MG TAB PO SCH (08:45)
--- NOTE | 2023-01-30 08:46 | Gynecologic Progress Note ---
Date of Service January 30, 2023 Assessment & Plan (1) Haemorrhagic cyst: Plan: admission day 1 for acute pelvic pain with nausea and vomiting. Nausea vomiting overnight and pain is reasonably well controlled with current pain regimen. well transition to scheduled p.o. antiemetics. Will transition to p.o. pain medication including Percocet, Mobic and Tylenol. Discussed pain management goals. Discussed importance of keeping up on antiemetics to avoid nausea and vomiting so that p.o. pain medications can be tolerated. Evaluate for discharge later on today pending tolerance of p.o. management. greater than 35 minutes was spent with patient and review of history, care management and discussion today. (2) Nausea & vomiting: (3) Acute pelvic pain: Admission and Anticipated Discharge Date Admission Date: January 29, 2023 Subjective No acute events overnight. Patient reporting no vomiting and nausea fairly well controlled with Phenergan. Reports that pain is controlled with morphine 4 mg every 2 hours. Discussed plan to transition to p.o. medications today. Discussed restarting regular diet. discussed goal to improve pain but not necessarily pain-free. Physical Exam Gastrointestinal (Abdomen): Inspection/Auscultation: abdomen normal to inspection; abdomen not distended Percussion/Palpation: + abdomen tender ( moderate bilateral pelvis) and abdomen soft; no guarding and abdomen not rigid Psychiatric: A+Ox3, euthymic affect Results & Data Vital Signs (Past 12 Hours) Vital Signs Temp Pulse Pulse Resp BP BP Pulse Ox 01/30/23 03:30 36.9 C 105 H 18 126/95 01/29/23 23:30 36.7 C 95 H 18 135/75 01/29/23 23:27 36.7 C 95 H 18 135/75 01/29/23 22:00 76 01/29/23 22:00 78 18 126/80 96 O2 Del Method 01/30/23 03:30 Room Air 01/29/23 23:30 Room Air 01/29/23 23:27 Room Air 01/29/23 22:00 01/29/23 22:00 Room Air PG Care Time/CCT Total # of Minutes Spent Total Time Spent with Patient: Total time spent is greater than 50% in coordination of care (as documented) at patient's floor/unit and/or counseling patient: Coding Level of Care Code 19854 SUB INP/OBS CARE 2/35MIN Diagnoses Haemorrhagic cyst Nausea & vomiting R11.2 Vomiting type: unspecified Acute pelvic pain R10.2 (2) Nausea & vomiting Vomiting type: unspecified Qualified Code(s): R11.2 - Nausea with vomiting, unspecified
[2023-01-30] MEDS ORDERED: lamoTRIgine 100 MG TAB PO SCH ×2 (09:00→21:00)
[2023-01-30] MEDS ORDERED: hydroCHLOROthiazide 25 MG TAB PO SCH (09:00)
[2023-01-30] MEDS ORDERED: PROMETHAZINE HCL 25 MG SUPP PR PRN (10:22)
[2023-01-30] MEDS: ONDANSETRON 4 MG OD TAB PO PRN ×2 (10:38→14:07)
[2023-01-30] MEDS: MELOXICAM 7.5 MG TAB PO SCH (10:39)
[2023-01-30] MEDS: oxyCODONE/ACETAMINOPHEN 5mg/325mg TAB PO PRN ×3 (10:39→20:33)
--- NOTE | 2023-01-30 16:59 | Gynecologic Progress Note ---
Date of Service January 30, 2023 Assessment & Plan (1) Chronic pain: Plan Long discussion held with pt in presence of RN Chacha Serrano. Reviewed her course so far today and her history as I gleaned from the chart and discussion with off- going md this am. Expectations for her hospitalization reviewed with pt, pain control via oral pain meds using anti-emetics as needed. She is reminded and agrees there is no expectation for her to be pain free. Her course of pain mgmt, psychiatric services and pcp mgmt are long. All long before she came to graphic coordinator care with [facility]. She admits the pelvic pain and vaginal stabbing she felt prior to admission is not new, she has had in past, more severe this time. Discussed with her no real etiology for this pain from graphic coordinator standpoint has been found, although can explore poss e'osis and most significantly may not be any organic graphic coordinator etiology but instead an extension of her chronic pain/back pain. I did mention would be strange for her to have sudden significant graphic coordinator cause like endometriosis and that can be explored on outpt basis. She verbalized understanding. She is reminded of her conversations with Dr. Cordova her current graphic coordinator provider. Discussed lupron/orilissa and surg eval with her. SE/risks/goals of these meds reviewed. She is on alot of meds, from different providers and enc her to cont in her collaborative care. I did read that her pain mgmt doctor told her he was leaving and she needed to est at [facility], she has not done so thus far and I spent some time explaining her need to est this transition of care because she needs approach to her pain issues from psychiatry/psychology standpoint. We discussed her mildly elevated lfts and plan use of percocet prn and mobic. She explains that she did use percocet in past for course with pcp and aware of addictive nature. She is constipated now and warned of this worsening with narcotic and use of zofran. Will add colace now and miralax. No bm since sat. Offered dc later today after dinner or by am and rec only bland diet right now and she is agreeable. Goals reviewed. She seems to have good insight into her pain and expected management. She did not flinch or change her expression at all while talking for >30min to suggest pain control issues or frankly that she was in pain at all. For now plan labs and reeval in am. If lfts elevated will plan for her to follow with pcp. If doing well on mobic, will have her cont and have her call doctor who prescribes voltaren for their advice about layering these meds. >30min spent face to face, non face to face and documentation. Admission and Anticipated Discharge Date Admission Date: January 29, 2023 Subjective pt notes less pain than this afternoon. she has pablo po, 2 episodes of watery emesis but has not had any solid food emesis. using po zofran and pr phenergan. Review of Systems Constitutional: as per Subjective / HPI Physical Exam Constitutional: WD/WN, vitals as above cooperative; not ill appearing (sitting up in bed, smiling, talkative) Psychiatric: Eye Contact: good eye contact Affect: euthymic affect Thought Process: clear/coherent thought process Insight: good insight Results & Data Vital Signs (Past 12 Hours) Vital Signs Temp Pulse Resp BP Pulse Ox O2 Del Method 01/30/23 16:15 98.1 F 82 16 102/60 97 Room Air 01/30/23 11:25 97.9 F 80 18 127/86 100 Room Air 01/30/23 07:30 98.2 F 80 18 114/81 99 Room Air PG Care Time/CCT Total # of Minutes Spent Total Time Spent with Patient: Total time spent is greater than 50% in coordination of care (as documented) at patient's floor/unit and/or counseling patient: Coding Level of Care Code None Diagnoses Chronic pain G89.[address] Hartley charged for bedside care was unsure if i can charge.
[2023-01-30] MEDS ORDERED: POLYETHYLENE (MIRALAX) 17 GM PACK PO PRN (17:00)
[2023-01-30] MEDS: DOCUSATE SODIUM 100 MG CAP PO SCH (20:29)
[2023-01-31] MEDS: oxyCODONE/ACETAMINOPHEN 5mg/325mg TAB PO PRN ×3 (01:12→09:54)
[2023-01-31] MEDS: ONDANSETRON 4 MG OD TAB PO PRN (06:22)
[2023-01-31 07:24] LABS: Albumin Globulin Ratio 1.7 (0.9-2); Albumin Level 3.9 gm/dl (3.4-5.0); BUN Creatinine Ratio 15.2 (10-20); Bilirubin,Total 0.3 mg/dl (0.2-1.0); Calcium 8.8 mg/dl (8.6-10.3); Creatinine Clr Calc Pharmacy 108.5 ml/min; Est GFR (African American) 118.1 ml/min; Est GFR (Non-African American) 101.9 ml/min; Globulin 2.3 gm/dl (2.5-4.0); Potassium 4.1 mmol/L (3.5-5.1); Total Protein 6.2 gm/dl (6.0-8.3)
--- NOTE | 2023-01-31 08:03 | Gynecologic Progress Note ---
Date of Service January 31, 2023 Assessment & Plan (1) Chronic pain: Plan Patient stable. No acute changes. was given 2 percocet overnight and might explain her am nausea, did not take with any food. no concern for bowel obstruction. nausea related to pain and pain control adequate at this point. she is to plan outpt mgmt with [facility]. she is aware of percocet script and need for limited use. checked on papdmp and no issues. she is aware percocet is addictive and causes constipation. rec stool softeners/miralax. rec she call office and make appt with dr. dorantes. her am lfts have normalized, discussed mobic as well and she should call her other provider to see about the other nsaids, hold them now until she reviews. >30min spent face to face and non face to face and documentation Admission and Anticipated Discharge Date Admission Date: January 29, 2023 Subjective pt reports some nausea and dizziness this am. sitting by bedside. nurse just did orthostatic bps and ok, pulse normal she is making eye contact and notes some lower pelvis pain with deep breaths. no po this am yet. +flatus. no bm yet since sat. Review of Systems Constitutional: as per Subjective / HPI Physical Exam Constitutional: WD/WN, vitals as above Respiratory: normal respiratory effort, lungs clear to auscultation Cardiovascular: Rate/Rhythm: regular rate and regular rhythm Heart Sounds: no murmur Gastrointestinal (Abdomen): Inspection/Auscultation: abdomen normal to inspection Percussion/Palpation: abdomen soft; abdomen nontender and no guarding Musculoskeletal: nt calves Neurologic: grossly normal Psychiatric: A+Ox3, euthymic affect Results & Data Vital Signs (Past 12 Hours) Vital Signs Temp Pulse Resp BP Pulse Ox O2 Del Method 01/31/23 01:05 98.1 F 75 18 104/65 100 Room Air 01/30/23 20:30 98.4 F 96 H 18 117/79 100 Room Air PG Care Time/CCT Total # of Minutes Spent Total Time Spent with Patient: Total time spent is greater than 50% in coordination of care (as documented) at patient's floor/unit and/or counseling patient: Coding Level of Care Code 60160 INP/OBS DISCH >30 MIN Diagnoses Chronic pain G89.29
[2023-01-31] MEDS: busPIRone 15 MG TAB PO SCH (09:44)
[2023-01-31] MEDS: DOCUSATE SODIUM 100 MG CAP PO SCH (09:44)
[2023-01-31] MEDS: buPROPion XL 300 MG TABCR PO SCH (09:44)
[2023-01-31] MEDS: MELOXICAM 7.5 MG TAB PO SCH (09:45)
[2023-01-31] MEDS: PROPRANOLOL HCL 10 MG TAB PO SCH (09:46)
[2023-01-31] MEDS: NORETHINDRONE 5 MG TAB PO SCH (09:46)
[2023-01-31] MEDS: PREGABALIN 25 MG CAP PO SCH (09:56)
--- NOTE | 2023-02-04 21:14 | Discharge Summary ---
Date of Service Date of admission:January 29 2023 Date of discharge: January 31 2023 Admission HPI Per Admitting Provider 27yo who was admitted by my partner Dr. Hartley with the following story. See his OBGYN consult note on day of admission for more detail. Damaris is a 27-year-old presents to the emergency department secondary to nausea, vomiting and severe pelvic pain. Ultrasound was notable for an adnexal cyst possibly hemorrhagic. Patient has a long history of chronic pelvic pain and reports that she typically has nausea and vomiting with pain episodes. Patient has been unable to keep down pain medications secondary to the nausea and vomiting. Patient's pain is of unclear etiology but may be due to the hemorrhagic cyst versus possible endometriosis flare versus non credit coordinator etiology. acute surgical intervention does not appear indicated based on exam and findings from imaging. will admit patient for pain and nausea /vomiting management. will transition to p.o. medications tomorrow to assess tolerance of p.o. medications. Hospital Course (1) Nausea & vomiting: (2) Acute pelvic pain: (3) Chronic pain: Plan Patient was left in my care hospital day #2 where she began oral regimen of anti -emetics and was using oral pain meds, namely percocet and mobic, which was a regimen ordered by the admitting physician. She began to improve and ultimately the next day was ready to go home. She was sent appropriate prescriptions and checked on the papdmp. She was to contact her collborating providers. She was to f/u with Dr. Cordova her primary credit coordinator. See detailed notes during her hospital stay. Coding Level of Care Code None Diagnoses Nausea & vomiting R11.2 Vomiting type: unspecified Acute pelvic pain R10.2 Chronic pain G89.29
== END 2023-01-31 10:01 | disposition home or self-care (01) | DRG 392 ==
LOC: ED 12:55 → 4E1 20:58

== ENCOUNTER 2023-08-18 17:02 | Inpatient (IN) ==
[2023-08-18] MEDS ORDERED: MoRPHine SULFATE 10 MG/ML CARP/VIAL IV STA ×2 (17:33→19:50)
[2023-08-18] MEDS ORDERED: ONDANSETRON INJ 2 MG/ML 2 ML VIAL IV STA ×2 (17:33→19:22)
--- NOTE | 2023-08-18 17:35 | Emergency Department Note ---
Impression & Plan Renal colic, Urinary frequency, Acute flank pain ED Provider Note NAME: MARCELA MILIAN AGE: 28 SEX: F : 1995 ARRIVES VIA: Walk-In INFORMANT: Patient ED PROVIDER(S): Dung Sky DO CHIEF COMPLAINT: Left flank pain HPI: Patient is a 28-year-old female who presents to the ER for left flank pain. She notes she was seen evaluated yesterday for this and had an ultrasound which no longer visualized the stone which was in her left kidney which showed hydronephrosis. She is 24 weeks . She denies any vaginal bleeding or vaginal discharge. She is G2, P1. We will abdominal cramping but notes that she has severe dysuria urgency or frequency. She notes that this feels exactly her previous kidney stones. She denies any contractions. She does have burning in her lower pelvis. Since being home she has been taking Tylenol but she only took narcotic once that she was concerned that this may harm her child. ADDITIONAL HISTORY OBTAINED: Per HPI Chronic Medical/Social Conditions Affecting Care: Per HPI PAST MEDICAL HISTORY:See Below PAST SURGICAL HISTORY:See Below FAMILY HISTORY:See Below SOCIAL HISTORY:See Below HOME MEDICATIONS:See Below ALLERGIES:See Below VITALS:See Below PHYSICAL EXAMINATION: GENERAL: Sitting up in bed, alert, mild distress holding her left flank EYE EXAM: normal conjunctiva. OROPHARYNX: no exudate, no erythema, lips, buccal mucosa, and tongue normal and mucous membranes are moist NECK: supple, no nuchal rigidity, no adenopathy, non-tender LUNGS: Clear to auscultation. Normal chest wall mechanics HEART: no murmurs, S1 normal and S2 normal ABDOMEN: abdomen soft, non-tender with a gravid uterus, normo-active bowel sounds, no masses, no rebound or guarding. BACK: Back is symmetrical on inspection and there is no deformity, no midline tenderness, no CVA tenderness. UPPER EXTREMITIES: upper extremities are grossly normal. LOWER EXTREMITIES: No pitting edema. NEURO EXAM: Normal sensorium, cranial nerves II-XII grossly intact, normal speech, no gross weakness of arms, no gross weakness of legs. MEDICAL DECISION MAKING: Patient is a 20-year-old female G2, P1 at 24 weeks who presents to the ER for left flank pain. She was seen and evaluated here yesterday had an ultrasound which showed left-sided hydro and the stone that was in the left kidney from her CT that year was no longer present. UA showed hematuria. She was discharged on oral narcotics. Pain got worse she came back in. Labs show no significant leukocytosis or anemia. BMP along with LFTs bilirubin and lipase was remarkable for a lipase of 118. UA with hematuria. No signs of infection. Ultrasound shows no hydro on the left. Still has hematuria. Do favor she still has left renal colic causing the flank pain. She is given multiple doses of morphine as well as Zofran/antiemetics. With the recurrent doses she was discussed with the hospitalist Dr. Alysha Posada for observation overnight. Did notify the urologist. They will not stand here due to the age of the fetus/child if this needs to occur. Will monitor overnight. Bedside ultrasound performed by myself shows an IUP with a heart rate of 142. External Records Reviewed: Which show that she is O+ Consults/Care Managements Discussions: Per [facility] Triage Nursing notes reviewed. Limited review of prior medical records performed Vital Signs: reviewed and remarkable for no significant abnormalities Differential diagnosis: Differential diagnoses includes but is not limited to gastritis, peptic ulcer disease, GERD, gallbladder disease, pancreatitis, small bowel obstruction, appendicitis, diverticulitis, hernia, urinary tract infection, torsion, perforation, trauma, infectious. ER treatment provided: See below Diagnostics interpreted by me include EKG and cardiac monitoring as listed below: -Cardiac Monitoring: An order was placed for continuous cardiac monitoring. The monitor shows a rate of 80 with sinus rhythm. -ECG: none -Laboratory studies:Interpreted by me as stated above in MDM and shown below. Imaging studies: Xrays: As interpreted by me:none CTs show: none Ultrasound left kidney shows no hydro per my read Ultrasound of the kidney per radiology was unremarkable Procedures:none Critical Care: None Past Med/Surg History Medical History History of nephrolithiasis Abdominal pain Right ovarian cyst Developmental dyslexia Depression with anxiety GERD (gastroesophageal reflux disease) Myofascial pain Chronic low back pain Herniated disc LUMBAR AND CERVICAL (FULL ROM) History of kidney stones Sacroiliac joint pain Anxiety Vitamin D deficiency HX, ? CURRENT STATUS Surgical History History of laparoscopy History of breast lump/mass excision (01/17/22) Excision of left breast mass. Dr. Jason 01/17/2022 S/P cystoscopy with ureteral stent placement 12/05/20 Dr. Lamont Ambrose- Cystoscopy, Left ureteroscopy, Laser lithotripsy, Stone basket extraction of stone, Left retrograde pyelogram, Left ureteral stent placement Nasal fracture Repair of nasal fracture Family History Mother No problems noted. Grandmother (Maternal) Lung cancer Oral cancer Other Cancer Hypertension Kidney stones Denies family history of Ovarian cancer Prostate cancer Heart disease Myocardial infarction Breast cancer Colorectal cancer Social History Smoking Status: Never smoker Tobacco Type: E-cigarettes / Vaping Second Hand Exposure: No; Do You Dip or Chew Tobacco: No; Hx Alcohol Use: Yes Alcohol type: hard liquor Hx Substance Use: No Preferred Language: Citizen Of [place] Communication Ability: Effective Visual Impairment: No Limitations Hearing Ability: Normal Ingot Car Operator Required: No Beliefs That Will Affect Care: None marital status: Single Current Living Situation: Significant Other Current Living Situation Comment: lives with boyfriend, her son and her boyfriends daughter current occupational status: employed 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 @ [employer] How many Children do You have: 1 Feels Safe at Home: Yes Childhood Exposure to Second-Hand Smoke: No Diet: regular during the past year weight has: increased > 10 lbs Physical Activity Frequency: Daily Seatbelt Use: always Sunscreen Use: Yes Assistive Devices: None Allergies Allergies Allergy/AdvReac Type Severity Reaction Status Date / Time aluminum [From Drysol] Allergy Intermediate Hives Verified 08/18/23 19:09 Home Meds Home Medications Medication Instructions Recorded Confirmed PNV 153-FA 400 mcg-om3 35 mg-dha 1 tab PO DAILY 08/17/23 08/18/23 25 mg-epa 5 mg-fish oil chew tablet ( Gummies) bupropion HCl 300 mg 24 hr tablet, 300 mg PO QAM 08/17/23 08/18/23 extended release iron 18 mg tablet 18 mg PO DAILY 08/17/23 08/18/23 metoprolol succinate 25 mg 25 mg PO QAM 08/17/23 08/18/23 tablet,extended release 24 hr ondansetron HCl 8 mg tablet 8 mg PO Q8H PRN NAUSEA/VOMITING 08/17/23 08/18/23 pyridoxine (vitamin B6) 100 mg 100 mg PO DAILY 08/17/23 08/18/23 tablet (Vitamin B-6) trazodone 50 mg tablet 50 mg PO HS 08/17/23 08/18/23 Previous Rx's Medication Instructions Recorded acetaminophen 300 mg-codeine 30 mg 1 tab PO Q8H PRN pain #9 tabs 08/17/23 tablet cefdinir 300 mg capsule 300 mg PO Q12H 6 days #12 caps 08/17/23 cefdinir 300 mg capsule 300 mg PO Q12H 9 days #18 caps 08/17/23 Results & Data (ED) Vital Signs Vital Signs - 24 hr 08/18/23 17:14 08/18/23 17:34 08/18/23 17:34 Temperature 36.8 C Temperature Source Temporal Artery Scan Pulse Rate 93 H 87 Pulse Rate [Right Finger] 87 Pulse Rhythm Regular Pulse Rhythm [Right Finger] Regular Pulse Strength [Right Finger] Normal Respiratory Rate 16 22 18 Respiratory Effort / Characteristics Non-Labored Spontaneous Non-Labored Spontaneous Respiratory Depth Normal Normal Respiratory Pattern Regular Regular Blood Pressure 122/74 Blood Pressure [Left Arm] 117/84 Blood Pressure Mean 90 Blood Pressure Mean [Left Arm] 95 Blood Pressure Position Sitting Blood Pressure Position [Left Arm] Lying Pulse Oximetry 97 97 98 Oxygen Delivery Method Room Air Room Air Room Air Sepsis Recent Fever Within 48 Hours No Sepsis New/Unexplained Change in Mental Status N/A Sepsis Action Taken by Nursing No Action Required 08/18/23 19:41 Temperature Temperature Source Pulse Rate Pulse Rate [Right Finger] 86 Pulse Rhythm Pulse Rhythm [Right Finger] Pulse Strength [Right Finger] Respiratory Rate 18 Respiratory Effort / Characteristics Non-Labored Respiratory Depth Normal Respiratory Pattern Regular Blood Pressure Blood Pressure [Left Arm] 122/70 Blood Pressure Mean Blood Pressure Mean [Left Arm] 87 Blood Pressure Position Blood Pressure Position [Left Arm] Pulse Oximetry 98 Oxygen Delivery Method Room Air Sepsis Recent Fever Within 48 Hours Sepsis New/Unexplained Change in Mental Status Sepsis Action Taken by Nursing Laboratory Data 08/18/23 17:30 08/18/23 17:30 Lab Results 08/18/23 08/18/23 Range/Units 17:30 17:36 WBC 7.55 (4.8-10.8) K/ul RBC 3.93 L (4.20-5.40) M/uL Hgb 12.1 (12.0-16.0) g/dl Hct 36.0 L (37.0-47.0) % MCV 91.6 (80.0-100.0) fL MCH 30.8 (25.0-34.0) pg MCHC 33.6 (32.0-36.0) g/dL RDW Std Deviation 44.5 (36.4-46.3) fL RDW Coeff of Baldo 13.4 (11.5-14.5) % Plt Count 228 (130-400) K/uL MPV 9.9 (9.4-12.4) fL Immature Gran % (Auto) 0.5 % Neut % (Auto) 69.1 % Lymph % (Auto) 20.5 % Vilas % (Auto) 9.3 % Eos % (Auto) 0.5 % Baso % (Auto) 0.1 % Neut # (Auto) 5.21 (1.40-6.50) K/uL Lymph # (Auto) 1.55 (1.20-3.40) K/uL Vilas # (Auto) 0.70 H (0.11-0.59) K/uL Eos # (Auto) 0.04 (0.00-0.50) K/uL Baso # (Auto) 0.01 (0.00-0.20) K/uL Immature Gran # (Auto) 0.04 (0.01-0.20) K/uL Sodium 137 (136-145) mmol/L Potassium 3.5 (3.5-5.1) mmol/L Chloride 106 (98-107) mmol/L Carbon Dioxide 24 (21-32) mmol/L Anion Gap 7 (3-11) BUN 7 (6-23) mg/dl Creatinine 0.56 L (0.6-1.2) mg/dl Est Cr Clr Drug Dosing 148.5 ml/min Est GFR ( Amer) 146.0 ml/min Est GFR (Non-Af Amer) 126.0 ml/min BUN/Creatinine Ratio 12.5 (10-20) Glucose 77 (70-99(Fasting)) mg/dl Calcium 8.3 L (8.6-10.3) mg/dl Total Bilirubin 0.1 L (0.2-1.0) mg/dl AST 15 (13-39) U/L ALT 11 (7-52) U/L Alkaline Phosphatase 66 (34-104) U/L Total Protein 7.0 (6.0-8.3) gm/dl Albumin 3.7 (3.4-5.0) gm/dl Globulin 3.3 (2.5-4.0) gm/dl Albumin/Globulin Ratio 1.1 (0.9-2) Lipase 118 H (11-82) U/L Urine Color Yellow Urine Appearance Turbid A (Clear) Urine pH 7.5 (4.5-7.5) Ur Specific Patrick 1.016 (1.000-1.030) Urine Protein Negative (Negative) Urine Glucose (UA) Negative (Negative) Urine Ketones Negative (Negative) Urine Blood 1+ H (Negative) Urine Nitrite Negative (Negative) Urine Bilirubin Negative (Negative) Urine Urobilinogen Negative (Negative) Ur Leukocyte Esterase Negative (Negative) Urine WBC (Auto) 1-5 (0-5) /hpf Urine RBC (Auto) 10-30 H (0-4) /hpf U Hyaline Cast (Auto) 1-5 (0-5) /lpf U Epithel Cells (Auto) >30 H (0-5) /lpf Urine Bacteria (Auto) Negative (Negative) Administered Medications Discontinued Medications Morphine Sulfate (Morphine Sulfate 10 Mg/Ml Carp/Vial) 6 mg IV NOW STA Stop: 08/18/23 17:34 Last Admin: 08/18/23 17:43 Dose: 6 mg Documented By: QGV Morphine Sulfate (Morphine Sulfate 4 Mg/Ml 1 Ml Carp\Vial) 4 mg IV NOW STA Stop: 08/18/23 18:27 Last Admin: 08/18/23 18:31 Dose: 4 mg Documented By: QGV Morphine Sulfate (Morphine Sulfate 10 Mg/Ml Carp/Vial) 6 mg IV NOW STA Stop: 08/18/23 19:51 Last Admin: 08/18/23 19:58 Dose: 6 mg Documented By: MADISON Ondansetron HCl (Ondansetron Inj 2 Mg/Ml 2 Ml Vial) 4 mg IV NOW STA Stop: 08/18/23 17:34 Last Admin: 08/18/23 17:43 Dose: 4 mg Documented By: QGV Ondansetron HCl (Ondansetron Inj 2 Mg/Ml 2 Ml Vial) 4 mg IV NOW STA Stop: 08/18/23 19:23 Last Admin: 08/18/23 19:38 Dose: 4 mg Documented By: PATSYB Imaging Data Radiologist's Impression: Renal Ultrasound 08/18/23 17:35 US renal/blad retro comp CLINICAL HISTORY: l flank pain TECHNIQUE: Multiple sonographic real-time images of the kidneys and bladder were obtained. COMPARISON: Comparison is made to renal ultrasound 08/17/2020 FINDINGS: The right kidney measures 11.3 cm in length, and the left kidney measures 12.2 cm in length. The right kidney is normal in size, contour, cortical thickness, and echogenicity. No hydronephrosis is identified. No renal lesion is identified. The left kidney is normal in size, contour, cortical thickness and echogenicity. Caliectasis is seen without evidence of hydronephrosis. No renal lesion is identified. The bladder is partially distended. No large intraluminal mass is seen. The jets are not seen. Incidental note is made of an intrauterine with a heart rate of 134 bpm. There is suggestion of hepatic steatosis. IMPRESSION: Previously noted left hydronephrosis is not appreciated on today's exam although caliectasis is seen. No obstructive stones are seen. ACT 112: Negative or not required by law. Electronically signed by: Mati Sandoval M.D. 08/18/2023 6:52 PM Discharge Plan Visit Data Chief Complaint: Flank Pain Stated Complaint: FLANK PAIN, PAIN LOWER ABDOMEN ED Provider: Dung Sky Discharge Problem: Renal colic, Urinary frequency, Acute flank pain Forms Stand Alone Forms: My [facility] [place] [employer] Prescriptions Prescriptions: No Action trazodone 50 mg tablet 50 mg PO HS ondansetron HCl 8 mg tablet 8 mg PO Q8H PRN (Reason: NAUSEA/VOMITING) pyridoxine (vitamin B6) [Vitamin B-6] 100 mg Tablet 100 mg PO DAILY Rx Instructions: PT UNSURE OF STRENGTH metoprolol succinate 25 mg tablet extended release 24 hr 25 mg PO QAM iron 18 mg Tablet 18 mg PO DAILY Rx Instructions: PT UNSURE OF STRENGTH bupropion HCl 300 mg tablet extended release 24 hr 300 mg PO QAM Gummies 400 mcg-35 mg- 25 mg-5 mg Tablet,Chewable 1 tab PO DAILY acetaminophen-codeine 300-30 mg tablet 1 tab PO Q8H PRN (Reason: pain) Qty: 9 0RF cefdinir 300 mg capsule 300 mg PO Q12H 9 Days Qty: 18 0RF cefdinir 300 mg capsule 300 mg PO Q12H 6 Days Qty: 12 0RF Referrals Referrals: Luisa Roldan MD [Primary Care Provider] -
[2023-08-18 17:46] LABS: Basophils # (auto) 0.01 K/uL (0.00-0.20); Basophils % (auto) 0.1 %; Eosinophils # (auto) 0.04 K/uL (0.00-0.50); Eosinophils % (auto) 0.5 %; Hemoglobin 12.1 g/dl (12.0-16.0); Immature Granulocytes # (auto) 0.04 K/uL (0.01-0.20); Immature Granulocytes % (auto) 0.5 %; Lymphocytes # (auto) 1.55 K/uL (1.20-3.40); Lymphocytes % (auto) 20.5 %; Mean Corpuscular Hemoglobin 30.8 pg (25.0-34.0); Mean Corpuscular Hgb Conc 33.6 g/dL (32.0-36.0); Mean Corpuscular Volume 91.6 fL (80.0-100.0); Mean Platelet Volume 9.9 fL (9.4-12.4); Monocytes % (auto) 9.3 %; Neutrophils # (auto) 5.21 K/uL (1.40-6.50); Neutrophils % (auto) 69.1 %; Platelet Count 228 K/uL (130-400); RDW Coefficient of Variation 13.4 % (11.5-14.5); RDW Standard Deviation 44.5 fL (36.4-46.3); Red Blood Count 3.93 M/uL (4.20-5.40); White Blood Count 7.55 K/ul (4.8-10.8)
[2023-08-18 17:51] LABS: Appearance Urine Turbid (Clear); Bacteria Urine Automated Negative (Negative); Bilirubin Urine Negative (Negative); Blood Urine 1+ (Negative); Color Urine Yellow; Epithelial Cell Urine Auto >30 /lpf (0-5); Glucose Urine UA Negative (Negative); Ketones Urine Negative (Negative); Leukocyte Esterase Urine Negative (Negative); Nitrite Urine Negative (Negative); Protein Urine Negative (Negative); Specific Gravity Urine 1.016 (1.000-1.030); Urobilinogen Urine Negative (Negative); pH Urine 7.5 (4.5-7.5)
[2023-08-18 18:05] LABS: Albumin Globulin Ratio 1.1 (0.9-2); Albumin Level 3.7 gm/dl (3.4-5.0); BUN Creatinine Ratio 12.5 (10-20); Bilirubin,Total 0.1 mg/dl (0.2-1.0); Calcium 8.3 mg/dl (8.6-10.3); Creatinine Clr Calc Pharmacy 148.5 ml/min; Globulin 3.3 gm/dl (2.5-4.0); Potassium 3.5 mmol/L (3.5-5.1)
[2023-08-18] MEDS ORDERED: MoRPHine SULFATE 4 MG/ML 1 ML CARP\\VIAL IV STA ×2 (18:26→20:58)
--- NOTE | 2023-08-18 18:54 | Ultrasound Report ---
US renal/blad retro comp CLINICAL HISTORY: l flank pain TECHNIQUE: Multiple sonographic real-time images of the kidneys and bladder were obtained. COMPARISON: Comparison is made to renal ultrasound 08/17/2020 FINDINGS: The right kidney measures 11.3 cm in length, and the left kidney measures 12.2 cm in length. The right kidney is normal in size, contour, cortical thickness, and echogenicity. No hydronephrosis is identified. No renal lesion is identified. The left kidney is normal in size, contour, cortical thickness and echogenicity. Caliectasis is seen without evidence of hydronephrosis. No renal lesion is identified. The bladder is partially distended. No large intraluminal mass is seen. The jets are not seen. Incidental note is made of an intrauterine with a heart rate of 134 bpm. There is suggestion of hepatic steatosis. IMPRESSION: Previously noted left hydronephrosis is not appreciated on today's exam although caliectasis is seen. No obstructive stones are seen. ACT 112: Negative or not required by law. Electronically signed by: Mati Sandoval M.D. 08/18/2023 6:52 PM
--- NOTE | 2023-08-18 20:01 | History & Physical Report ---
Date of Service August 18, 2023 Assessment & Plan (1) Renal colic: Plan: 28-year-old currently 24 weeks presenting with persistent left flank pain and admitted for acute management of left hydronephrosis. Now stable, on pain control, antiemetics. Renal colic/left flank pain -No evidence of nephrolith on repeat ultrasound imaging. Bacteriuria from yesterday's UA (no nitrites, LE) now resolved on cefdinir prescribed at ED dis charge yesterday. -Afebrile, repeat UA negative for bacteria, nitrites, or leukocyte esterase. -Case discussed with Dr. Peña of urology prior to admission. -S/p IV morphine, Zofran in the ED. * Continue p.o. cefdinir 300 mg twice daily * Pain control regimen: Tylenol 1000 mg p.o. scheduled every 8 hours. IV morphine 4 mg, 2 mg as needed for breakthrough pain. Symptomatic PVCs -History of heart palpitation, previously on propranolol. History of suspected hyperthyroidism secondary to thyroiditis, however she is euthyroid at present. -Propranolol stopped upon delivery of . Was referred to cardiology ([facility] at [facility]) by poultry trimmer for return of palpitations following discontinuation of propranolol. -Diagnosed with symptomatic PVCs with HRs ranging from 59-167 bpm. Subsequently started on metoprolol XL 25 mg daily. * Continue Toprol 25 mg daily Anxiety/depression -Chronic. Stable. Managed on Wellbutrin 300 mg daily, trazodone 50 mg nightly. * Continue Wellbutrin 300 mg daily * Continue trazodone 50 mg nightly Second trimester -, follows with Macey ELECTRO WINNING OPERATOR. No complications to date. -Review of today's renal ultrasound notes HR of 134 bpm. * ELECTRO WINNING OPERATOR consult placed for daily monitoring. Code: Full code Dispo: Med-Surg FEN/GI: NPO DVT Prophylaxis: PT/OT: No Consults: ELECTRO WINNING OPERATOR Case Management: No (2) Symptomatic PVCs: (3) Depression: (4) and not yet delivered in second trimester: History of Present Illness Primary Care Provider: Luisa Roldan MD Damaris is a 28-year-old (24 weeks ) with a past medical history of anxiety/depression, symptomatic PVCs, chronic lumbar pain, and a relatively recent history of kidney stones (s/p cystoscopy, stent placement), who presents today with persistent left-sided flank pain. She presented to the emergency room yesterday for the same renal ultrasound done at that visit revealed left- sided hydronephrosis without stone visualized. She was discharged home on cefdinir and Percocet for pain. She presented again today to the emergency room for persistent pain despite taking pain control meds. In the ED, vitals were within normal limits. Labs were notable for lipase of 118 and urinalysis showing hematuria 1+, though negative for LE, nitrites (1+ bacteriuria from yesterday's UA resolved). Repeat renal ultrasound showed resolution of previously noted left hydronephrosis, though calyectasis was observed again no stones, obstructive or otherwise, were seen. She received multiple doses of IV morphine totaling 16 mg and IV Zofran 4 mg x 2 doses. Hospitalist service was then consulted for admission. HPI is unchanged on admission. ROS + nausea (without vomiting), and sharp, burning pain on urination. Allergies Allergy/AdvReac Type Severity Reaction Status Date / Time aluminum [From Drysol] Allergy Intermediate Hives Verified 08/18/23 19:09 Home Medications Medication Instructions Recorded Confirmed Type PNV 153-FA 400 mcg-om3 35 mg-dha 1 tab PO DAILY 08/17/23 08/18/23 History 25 mg-epa 5 mg-fish oil chew tablet ( Gummies) acetaminophen 300 mg-codeine 30 mg 1 tab PO Q8H PRN pain #9 tabs 08/17/23 08/18/23 Rx tablet bupropion HCl 300 mg 24 hr tablet, 300 mg PO QAM 08/17/23 08/18/23 History extended release cefdinir 300 mg capsule 300 mg PO Q12H 6 days #12 caps 08/17/23 08/18/23 Rx cefdinir 300 mg capsule 300 mg PO Q12H 9 days #18 caps 08/17/23 08/18/23 Rx iron 18 mg tablet 18 mg PO DAILY 08/17/23 08/18/23 History metoprolol succinate 25 mg 25 mg PO QAM 08/17/23 08/18/23 History tablet,extended release 24 hr ondansetron HCl 8 mg tablet 8 mg PO Q8H PRN NAUSEA/VOMITING 08/17/23 08/18/23 H istory pyridoxine (vitamin B6) 100 mg 100 mg PO DAILY 08/17/23 08/18/23 History tablet (Vitamin B-6) trazodone 50 mg tablet 50 mg PO HS 08/17/23 08/18/23 History Past Med/Surg History Medical History (Updated 08/19/23 @ 12:17 by Regina Ferrer MD) History of nephrolithiasis Abdominal pain Right ovarian cyst Developmental dyslexia Depression with anxiety GERD (gastroesophageal reflux disease) Myofascial pain Chronic low back pain Herniated disc LUMBAR AND CERVICAL (FULL ROM) History of kidney stones Sacroiliac joint pain Anxiety Vitamin D deficiency HX, ? CURRENT STATUS Surgical History (Reviewed 08/19/23 @ 01:53 EDT by Jewel Mark MD) History of laparoscopy History of breast lump/mass excision (01/17/22) Excision of left breast mass. Dr. Jason 01/17/2022 S/P cystoscopy with ureteral stent placement 12/05/20 Dr. Lamont Ambrose- Cystoscopy, Left ureteroscopy, Laser lithotripsy, Stone basket extraction of stone, Left retrograde pyelogram, Left ureteral stent placement Nasal fracture Repair of nasal fracture Family History (Reviewed 08/19/23 @ 01:53 EDT by Jewel Mark MD) Mother No problems noted. Grandmother (Maternal) Lung cancer Oral cancer Other Cancer Hypertension Kidney stones Denies family history of Ovarian cancer Prostate cancer Heart disease Myocardial infarction Breast cancer Colorectal cancer Social History (Reviewed 08/19/23 @ 01:53 EDT by Jewel Mark MD) Smoking Status: Never smoker Tobacco Type: E-cigarettes / Vaping Second Hand Exposure: No; Do You Dip or Chew Tobacco: No; Hx Alcohol Use: Yes Alcohol type: beer Hx Substance Use: No Preferred Language: Gu[place]ian Communication Ability: Effective Visual Impairment: No Limitations Hearing Ability: Normal Aerospace Engineer Required: No Beliefs That Will Affect Care: None marital status: Single Current Living Situation: Spouse Current Living Situation Comment: lives with boyfriend, her son and her boyfriends daughter current occupational status: employed 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 Normal conjunctiva, anicteric sclera. Oropharynx normal. Respiratory: Normal respiratory effort, CTABL. Cardiovascular: RRR without murmurs, gallops, or rubs. No pedal edema. GI: Soft abdomen with normal bowel sounds heard on auscultation. Mild LUQ, LLQ, and left infraumbilical TTP. Neuro: Alert and oriented x3. Results & Data Results & Data Vital Signs (Past 12 Hours) Vital Signs Temp Pulse Pulse Resp BP BP Pulse Ox 08/18/23 19:41 86 18 122/70 98 08/18/23 17:34 87 18 117/84 98 08/18/23 17:34 87 22 97 08/18/23 17:14 36.8 C 93 H 16 122/74 97 O2 Del Method 08/18/23 19:41 Room Air 08/18/23 17:34 Room Air 08/18/23 17:34 Room Air 08/18/23 17:14 Room Air Supervising Physician Co-Signing Physician Notes Patient seen and examined, chart reviewed, case discussed with Dr. Newby and I agree with the assessment and plan as above. In brief, patient is a 28yo female at 24 weeks presenting with left flank pain. She was seen in the ER ye sterday with similar symptoms - renal US with left sided hydronephrosis, no stone. She was given Cefdinir and Percocet. Returns with ongoing pain - has migrated now to anterior left abdomen. Complaining of significant dysuria She was given multiple doses of IV Morphine and Zofran On exam patient is resting comfortably, NAD. Pain just now controlled after IV Morphine Skin - intact, no rash HEENT - MMM, neck supple Heart - +S1/S2, regular Lungs - CTA Abd - gravid uterus, tenderness in LLQ without rebound/guarding Ext - warm, well perfused Labs and images reviewed Assessment/Plan - 28yo female at 24 weeks presenting with left sided renal colic, concern for possible obstructing stone vs recently passed stone -IVF, pain control and anti-emetics as needed -Continue Cefdinir -Urology consultation appreciated -Remainder as above Resident Activity Tracking Resident Involvement: Resident Care Provided Care Provided: Adult Hospital Medicine
--- NOTE | 2023-08-18 22:50 | Billing Data ---
Date of Service August 18, 2023 Coding Level of Care Code 94918 INT INP/OBS CARE
[2023-08-18] MEDS: traZODone HCL 50 MG TAB PO SCH (23:31)
[2023-08-18] MEDS: ACETAMINOPHEN 500 MG TAB PO SCH (23:31)
[2023-08-18] MEDS: MoRPHine SULFATE 2 MG/ML CARP IV PRN (23:31)
[2023-08-18] MEDS ORDERED: PHENAZOPYRIDINE HCL 200 MG TAB PO STA (23:57)
[2023-08-19] MEDS: CEFDINIR 300 MG CAP PO SCH ×3 (00:08→23:04)
[2023-08-19] MEDS: ONDANSETRON INJ 2 MG/ML 2 ML VIAL IV PRN ×3 (00:29→17:32)
[2023-08-19] MEDS: MoRPHine SULFATE 4 MG/ML 1 ML CARP\\VIAL IV PRN ×6 (00:33→22:13)
--- NOTE | 2023-08-19 01:57 | OB/GYN Consultation ---
Date of Consultation August 19, 2023 Assessment & Plan (1) Symptomatic PVCs: (2) Acute flank pain: 28-year-old -0-0-1 at 23 weeks and 6 days of gestation admitted for left flank pain, hematuria, history of kidney stones, no visible stones on ultrasound no hydronephrosis, Vital signs stable afebrile, heart rate reassuring, No signs of labor, Plan per medical team and urology, All questions were answered. (3) Renal colic: (4) Renal colic on left side: (5) Hyperthyroidism: (6) Depression: History of Present Illness Reason for Consultation: Patient is a 28-year-old -0-0-1 at 23 weeks and 6 days of gestation was admitted for left-sided flank pain, hematuria, history of kidney stones by medicine department. Patient reports similar pain in the past with multiple episodes of kidney stones for which she had stent placed 3 times by urology. Last time she has stone was in February 2023 when there was a 4 mm nonobstructing stone. She presented to ER on August 17 and also last night with left flank pain radiating to her left groin and frequency urgency difficulty with urination. On August 17 she was given Percocet and sent her home due to ultrasound not showing stones, with mild hydronephrosis. She was taking Percocet but was not helping so she had to come to the ER. She received multiple doses of IV morphine in the ER for pain control she was brought up to the second floor for further care. Now she feels much better her pain is under control, she has some pelvic pain cramping not sure she has uterine contractions. She denies vaginal bleeding or leaking and she reports good movements. Her has been complicated by, 1. History of preeclampsia during first in 2013, 2. Anxiety depression during , on Wellbutrin and trazodone as needed for sleep, 3. History of hypothyroidism, normal TSH, 4. History of palpitations, on metoprolol Attending Physician: Regina Ferrer MD Allergies Allergy/AdvReac Type Severity Reaction Status Date / Time aluminum [From Drysol] Allergy Intermediate Hives Verified 08/18/23 19:09 Home Medications Medication Instructions Recorded Confirmed Type PNV 153-FA 400 mcg-om3 35 mg-dha 1 tab PO DAILY 08/17/23 08/18/23 History 25 mg-epa 5 mg-fish oil chew tablet ( Gummies) acetaminophen 300 mg-codeine 30 mg 1 tab PO Q8H PRN pain #9 tabs 08/17/23 08/18/23 Rx tablet bupropion HCl 300 mg 24 hr tablet, 300 mg PO QAM 08/17/23 08/18/23 History extended release cefdinir 300 mg capsule 300 mg PO Q12H 6 days #12 caps 08/17/23 08/18/23 Rx cefdinir 300 mg capsule 300 mg PO Q12H 9 days #18 caps 08/17/23 08/18/23 Rx iron 18 mg tablet 18 mg PO DAILY 08/17/23 08/18/23 History metoprolol succinate 25 mg 25 mg PO QAM 08/17/23 08/18/23 History tablet,extended release 24 hr ondansetron HCl 8 mg tablet 8 mg PO Q8H PRN NAUSEA/VOMITING 08/17/23 08/18/23 History pyridoxine (vitamin B6) 100 mg 100 mg PO DAILY 08/17/23 08/18/23 History tablet (Vitamin B-6) trazodone 50 mg tablet 50 mg PO HS 08/17/23 08/18/23 History Patient History Medical History (Updated 08/19/23 @ 01:56 EDT by Jewel Mark MD) History of nephrolithiasis Abdominal pain Right ovarian cyst Developmental dyslexia Depression with anxiety GERD (gastroesophageal reflux disease) Myofascial pain Chronic low back pain Herniated disc LUMBAR AND CERVICAL (FULL ROM) History of kidney stones Sacroiliac joint pain Anxiety Vitamin D deficiency HX, ? CURRENT STATUS Surgical History (Reviewed 08/19/23 @ 01:53 EDT by Jewel Mark MD) History of laparoscopy History of breast lump/mass excision (01/17/22) Excision of left breast mass. Dr. Jason 01/17/2022 S/P cystoscopy with ureteral stent placement 12/05/20 Dr. Lamont Ambrose- Cystoscopy, Left ureteroscopy, Laser lithotripsy, Stone basket extraction of stone, Left retrograde pyelogram, Left ureteral stent placement Nasal fracture Repair of nasal fracture Family History (Reviewed 08/19/23 @ 01:53 EDT by Jewel Mark MD) Mother No problems noted. Grandmother (Maternal) Lung cancer Oral cancer Other Cancer Hypertension Kidney stones Denies family history of Ovarian cancer Prostate cancer Heart disease Myocardial infarction Breast cancer Colorectal cancer Social History (Reviewed 08/19/23 @ 01:53 EDT by Jewel Mark MD) Smoking Status: Never smoker Tobacco Type: E-cigarettes / Vaping Second Hand Exposure: No; Do You Dip or Chew Tobacco: No; Hx Alcohol Use: Yes Alcohol type: beer Hx Substance Use: No Preferred Language: Kiswahili Communication Ability: Effective Visual Impairment: No Limitations Hearing Ability: Normal Director Of Education And Training Required: No Beliefs That Will Affect Care: None marital status: Single Current Living Situation: Spouse Current Living Situation Comment: lives with boyfriend, her son and her boyfriends daughter current occupational status: employed 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 @ [employer] How many Children do You have: 1 Feels Safe at Home: Yes Childhood Exposure to Second-Hand Smoke: No Diet: regular during the past year weight has: increased > 10 lbs Physical Activity Frequency: Daily Seatbelt Use: always Sunscreen Use: Yes Assistive Devices: None Review of Systems Constitutional: as per Subjective / HPI Physical Exam Constitutional: WD/WN, vitals as above well developed, well nourished and comfortable Gastrointestinal (Abdomen): normal bowel sounds, soft, nontender, no hepatosplenomegaly (Gravid) Genitourinary: normal external appearance Manual OB Exam: + cervical dilation (0), + cervical effacement (Thick) and + station high OB Exam Mo nitor Tracing: + external uterine monitor used and + category I NST heart rate 140s 150s appropriate for gestational age, [place] no contractions. Results & Data Vital Signs (Past 12 Hours) Vital Signs Temp Pulse Pulse Resp BP BP Pulse Ox 08/18/23 22:44 36.4 C L 64 16 119/78 100 08/18/23 22:00 76 15 97/65 L 98 08/18/23 21:30 80 18 101/68 100 08/18/23 21:00 70 22 116/90 100 08/18/23 19:41 86 18 122/70 98 08/18/23 17:34 87 18 117/84 98 08/18/23 17:34 87 22 97 08/18/23 17:14 36.8 C 93 H 16 122/74 97 O2 Del Method 08/18/23 22:44 Room Air 08/18/23 22:00 Room Air 08/18/23 21:30 Room Air 08/18/23 21:00 Room Air 08/18/23 19:41 Room Air 08/18/23 17:34 Room Air 08/18/23 17:34 Room Air 08/18/23 17:14 Room Air Laboratory Results 08/18/23 08/18/23 Range/Units 17:36 17:30 WBC 7.55 (4.8-10.8) K/ul RBC 3.93 L (4.20-5.40) M/uL Hgb 12.1 (12.0-16.0) g/dl Hct 36.0 L (37.0-47.0) % MCV 91.6 (80.0-100.0) fL MCH 30.8 (25.0-34.0) pg MCHC 33.6 (32.0-36.0) g/dL RDW Std Deviation 44.5 (36.4-46.3) fL RDW Coeff of Baldo 13.4 (11.5-14.5) % Plt Count 228 (130-400) K/uL MPV 9.9 (9.4-12.4) fL Immature Gran % (Auto) 0.5 % Neut % (Auto) 69.1 % Lymph % (Auto) 20.5 % [place] % (Auto) 9.3 % Eos % (Auto) 0.5 % Baso % (Auto) 0.1 % Neut # (Auto) 5.21 (1.40-6.50) K/uL Lymph # (Auto) 1.55 (1.20-3.40) K/uL [place] # (Auto) 0.70 H (0.11-0.59) K/uL Eos # (Auto) 0.04 (0.00-0.50) K/uL Baso # (Auto) 0.01 (0.00-0.20) K/uL Immature Gran # (Auto) 0.04 (0.01-0.20) K/uL Sodium 137 (136-145) mmol/L Potassium 3.5 (3.5-5.1) mmol/L Chloride 106 (98-107) mmol/L Carbon Dioxide 24 (21-32) mmol/L Anion Gap 7 (3-11) BUN 7 (6-23) mg/dl Creatinine 0.56 L (0.6-1.2) mg/dl Est Cr Clr Drug Dosing 148.5 ml/min Est GFR ( Amer) 146.0 ml/min Est GFR (Non-Af Amer) 126.0 ml/min BUN/Creatinine Ratio 12.5 (10-20) Glucose 77 (70-99(Fasting)) mg/dl Calcium 8.3 L (8.6-10.3) mg/dl Total Bilirubin 0.1 L (0.2-1.0) mg/dl AST 15 (13-39) U/L ALT 11 (7-52) U/L Alkaline Phosphatase 66 (34-104) U/L Total Protein 7.0 (6.0-8.3) gm/dl Albumin 3.7 (3.4-5.0) gm/dl Globulin 3.3 (2.5-4.0) gm/dl Albumin/Globulin Ratio 1.1 (0.9-2) Lipase 118 H (11-82) U/L Urine Color Yellow Urine Appearance Turbid A (Clear) Urine pH 7.5 (4.5-7.5) Ur Specific [place] 1.016 (1.000-1.030) Urine Protein Negative (Negative) Urine Glucose (UA) Negative (Negative) Urine Ketones Negative (Negative) Urine Blood 1+ H (Negative) Urine Nitrite Negative (Negative) Urine Bilirubin Negative (Negative) Urine Urobilinogen Negative (Negative) Ur Leukocyte Esterase Negative (Negative) Urine WBC (Auto) 1-5 (0-5) /hpf Urine RBC (Auto) 10-30 H (0-4) /hpf U Hyaline Cast (Auto) 1-5 (0-5) /lpf U Epithel Cells (Auto) >30 H (0-5) /lpf Urine Bacteria (Auto) Negative (Negative) Diagnostic Findings [facility], [place] [phone] Ultrasound Report Patient: MARCELA MILIAN Admit Date: 08/18/23 MR#: [id number] Address1: [facility] ADAM VELASCO Acct ID:[id number] Address2: [facility] [address] Date: 1995 [facility] Zip: [place] [id number] Age: 28 Location: ED Sex: F Room/Bed: Att Phy: Diagnosis: FLANK PAIN, PAIN LOWER ABDOMEN Reema Phy: Luisa Roldan MD Service Date: 08/18/23 [facility] Phy: Interpreting Phy: Mati Sandoval MDAdmit Phy: Ordering Phy: Dung Sky DO cc: ~ US renal/blad retro comp Renal US: CLINICAL HISTORY: l flank pain TECHNIQUE: Multiple sonographic real-time images of the kidneys and bladder were obtained. COMPARISON: Comparison is made to renal ultrasound 08/17/2020 FINDINGS: The right kidney measures 11.3 cm in length, and the left kidney measures 12.2 cm in length. The right kidney is normal in size, contour, cortical thickness, and echogenicity. No hydronephrosis is identified. No renal lesion is identified. The left kidney is normal in size, contour, cortical thickness and echogenicity. Caliectasis is seen without evidence of hydronephrosis. No renal lesion is identified. The bladder is partially distended. No large intraluminal mass is seen. The jets are not seen. Incidental note is made of an intrauterine with a heart rate of 134 bpm. There is suggestion of hepatic steatosis. IMPRESSION: Previously noted left hydronephrosis is not appreciated on today's exam although caliectasis is seen. No obstructive stones are seen
[2023-08-19] MEDS: MoRPHine SULFATE 2 MG/ML CARP IV PRN ×2 (02:17→19:58)
[2023-08-19 07:02] LABS: Hematocrit (blood only) 32.4 % (37.0-47.0); Hemoglobin 10.8 g/dl (12.0-16.0); Mean Corpuscular Hemoglobin 30.1 pg (25.0-34.0); Mean Corpuscular Hgb Conc 33.3 g/dL (32.0-36.0); Mean Corpuscular Volume 90.3 fL (80.0-100.0); Mean Platelet Volume 10.3 fL (9.4-12.4); Platelet Count 196 K/uL (130-400); RDW Coefficient of Variation 13.5 % (11.5-14.5); RDW Standard Deviation 44.9 fL (36.4-46.3); Red Blood Count 3.59 M/uL (4.20-5.40); White Blood Count 7.19 K/ul (4.8-10.8)
[2023-08-19 07:22] LABS: Anion Gap 6 (3-11); BUN Creatinine Ratio 12.5 (10-20); Blood Urea Nitrogen 6 mg/dl (6-23); Calcium 7.9 mg/dl (8.6-10.3); Carbon Dioxide 24 mmol/L (21-32); Chloride 105 mmol/L (98-107); Creatinine Clr Calc Pharmacy 172.6 ml/min; Est GFR (African American) > 150.0 ml/min; Est GFR (Non-African American) 132.6 ml/min; Glucose 85 mg/dl (70-99(Fasting)); Potassium 3.6 mmol/L (3.5-5.1); Sodium 135 mmol/L (136-145)
[2023-08-19] MEDS: METOPROLOL SUCC 25MG EXT REL TAB PO SCH (08:08)
[2023-08-19] MEDS: buPROPion XL 300 MG TABCR PO SCH (08:08)
[2023-08-19] MEDS: ACETAMINOPHEN 500 MG TAB PO SCH ×3 (08:08→23:04)
[2023-08-19] MEDS: PRENATAL VITAMIN 1 TAB PO SCH (08:09)
[2023-08-19] MEDS: PYRIDOXINE HCL 50 MG TAB PO SCH (08:09)
--- NOTE | 2023-08-19 08:27 | Urology Consultation ---
Date of Consultation August 19, 2023 Assessment & Plan (1) Acute flank pain: (2) : Plan 28-year-old female who is currently 24 weeks who was admitted with left flank pain and microscopic hematuria with a suspected obstructing ureteral calculus I had a long conversation with the patient regarding options for management Given her previous CT scan that showed nonobstructing stones, her microscopic hematuria and initial ultrasound showing hydronephrosis, there is a very high likelihood that she has an obstructing stone. The second ultrasound only showed mild pelviectasis and she may have passed the stone as well and still has some residual discomfort. I explained that typically in patients the goal is pain control and spontaneous passage of the stones. We try to avoid any sort of procedures as this can put the mother and child at further risk If her pain continues to not be controlled, I recommended we obtain a CT scan of the abdomen and pelvis without contrast to confirm an obstructing stone as occasionally there can be physiologic hydronephrosis from . This is roughly 5 [place] of radiation and I explained the fetus can safely tolerate up to [address] scan were to be performed and it showed a stone and her pain could not be controlled, we likely would have to transfer her to a tertiary care center that has a NICU. I personally feel comfortable operating on a patient however I do not think our hospital has the resources if there were to be any sort of complication Tentative plan will be to continue pain control. If it anytime it worsens I would recommend a CT scan of the abdomen pelvis without contrast. If that shows a stone and pain cannot be controlled then she would likely need to be transferred to [place] or [facility]. At this time, we will plan on reevaluating her tomorrow morning She can have a diet Urology to follow History of Present Illness Attending Physician: Regina Ferrer MD History of Present Illness 28-year-old female who is currently 23 weeks and 6 days who was admitted to the hospital on 08/18/2023 for left flank pain. Patient has been in the emergency department twice recently for the same complaint. Renal ultrasound 08/17/2023 showed mild left hydronephrosis. Previous CT scan before that did have a 4 mm left-sided nonobstructing stone. She was discharged home. She represented and another renal ultrasound was performed which did not show any obvious hydronephrosis at that time. Most recent labs show a white blood cell count of 7.1, hemoglobin of 10.8, creatinine of 0.48 and a urinalysis that was negative for nitrites, negative for leukocyte esterase, 10-30 RBCs, 1-5 WBCs and no bacteria. Urine culture is currently not growing any specific bacteria. She is reasonably comfortable now but pain returned shortly after morphine wears off. She does have a history of kidney stones and has had stents before as well. Allergies Allergy/AdvReac Type Severity Reaction Status Date / Time aluminum [From Drysol] Allergy Intermediate Hives Verified 08/18/23 19:09 Home Medications Medication Instructions Recorded Confirmed Type PNV 153-FA 400 mcg-om3 35 mg-dha 1 tab PO DAILY 08/17/23 08/18/23 History 25 mg-epa 5 mg-fish oil chew tablet ( Gummies) acetaminophen 300 mg-codeine 30 mg 1 tab PO Q8H PRN pain #9 tabs 08/17/23 08/18/23 Rx tablet bupropion HCl 300 mg 24 hr tablet, 300 mg PO QAM 08/17/23 08/18/23 History extended release cefdinir 300 mg capsule 300 mg PO Q12H 6 days #12 caps 08/17/23 08/18/23 Rx cefdinir 300 mg capsule 300 mg PO Q12H 9 days #18 caps 08/17/23 08/18/23 Rx iron 18 mg tablet 18 mg PO DAILY 08/17/23 08/18/23 History metoprolol succinate 25 mg 25 mg PO QAM 08/17/23 08/18/23 History tablet,extended release 24 hr ondansetron HCl 8 mg tablet 8 mg PO Q8H PRN NAUSEA/VOMITING 08/17/23 08/18/23 History pyridoxine (vitamin B6) 100 mg 100 mg PO DAILY 08/17/23 08/18/23 History tablet (Vitamin B-6) trazodone 50 mg tablet 50 mg PO HS 08/17/23 08/18/23 History Patient History Medical History (Updated 08/19/23 @ 01:56 EDT by Jewel Mark MD) History of nephrolithiasis Abdominal pain Right ovarian cyst Developmental dyslexia Depression with anxiety GERD (gastroesophageal reflux disease) Myofascial pain Chronic low back pain Herniated disc LUMBAR AND CERVICAL (FULL ROM) History of kidney stones Sacroiliac joint pain Anxiety Vitamin D deficiency HX, ? CURRENT STATUS Surgical History (Reviewed 08/19/23 @ 01:53 EDT by Jewel Mark MD) History of laparoscopy History of breast lump/mass excision (01/17/22) Excision of left breast mass. Dr. Jason 01/17/2022 S/P cystoscopy with ureteral stent placement 12/05/20 Dr. Lamont Ambrose- Cystoscopy, Left ureteroscopy, Laser lithotripsy, Stone basket extraction of stone, Left retrograde pyelogram, Left ureteral stent placement Nasal fracture Repair of nasal fracture Family History (Reviewed 08/19/23 @ 01:53 EDT by Jewel Mark MD) Mother No problems noted. 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: No Beliefs That Will Affect Care: None marital status: Single Current Living Situation: Spouse Current Living Situation Comment: lives with boyfriend, her son and her boyfriends daughter current occupational status: employed 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 @ [employer] How many Children do You have: 1 Feels Safe at Home: Yes Childhood Exposure to Second-Hand Smoke: No Diet: regular during the past year weight has: increased > 10 lbs Physical Activity Frequency: Daily Seatbelt Use: always Sunscreen Use: Yes Assistive Devices: None Review of Systems Review of Systems: 14 point review of systems negative outs terri of what is listed above in HPI Physical Exam Physical Exam: General: Alert and oriented, no acute distress HEENT: Normocephalic, mucous membranes moist Pulmonary: Nonlabored respirations Abdomen: Consistent with 24 week uterus Extremities: Moves all 4 spontaneously Neuro: No gross deficits Skin: Warm, dry, no rashes noted Results & Data Vital Signs (Past 12 Hours) Vital Signs Temp Pulse Resp BP Pulse Ox O2 Del Method 08/19/23 08:06 36.6 C 78 16 100/67 100 Room Air 08/18/23 22:44 36.4 C L 64 16 119/78 100 Room Air 08/18/23 22:00 76 15 97/65 L 98 Room Air 08/18/23 21:30 80 18 101/68 100 Room Air PG Care Time/CCT Total # of Minutes Spent Total Time Spent with Patient: Total time spent is greater than 50% in coordination of care (as documented) at patient's floor/unit and/or counseling patient: Coding Level of Care Code 52860 IN/OBS CONSULT LVL 3,45M Diagnoses Acute flank pain R10.9 Z34.90
[2023-08-19] MEDS: oxyCODONE HCL IR 5 MG TAB (IMMEDIATE RELEASE) PO PRN ×4 (08:57→23:22)
[2023-08-19] MEDS ORDERED: NON-FORMULARY MEDICATION (Iron 18 mg Tablet) PO SCH (09:00)
[2023-08-19] MEDS: SODIUM CHLORIDE 0.9% 1,000 ML IV SCH ×3 (09:03→23:05)
--- NOTE | 2023-08-19 12:09 | Hospitalist Progress Note ---
Date of Service August 19, 2023 Assessment & Plan (1) Renal colic: Plan: 28-year-old currently 24 weeks presenting with persistent left flank pain and admitted for acute management of left ureterolithiasis Renal colic/left flank pain -No evidence of nephrolith on repeat ultrasound imaging compared to day before- hydro resolved -pain seems to be improving-migrated from left flank to suprapubic region so hopefully stone is passing -add on NS IVFs at 125mL/hr for expulsive therapy, avoid FLomax in - Bacteriuria from previous UA (no nitrites, LE) now resolved-remains on on cefdinir, follow cultures -Afebrile, repeat UA negative for bacteria, nitrites, or leukocyte esterase. -consult Urology-plan for CT abd/pel if pain worsens or persists -if has persistent stone, would tx to tertiary care with NICU capability in case of premature labor in setting of stone/need for procedure -add oxycodone prn, continue IV morphine (2) Symptomatic PVCs: Plan: -History of heart palpitation, previously on propranolol. History of suspected hyperthyroidism secondary to thyroiditis, however she is euthyroid at present. -Propranolol stopped by patient due to . Was referred to cardiology ([facility] at [facility]) by organic chemistry teacher for return of palpitations following discontinuation of propranolol. -Diagnosed with symptomatic PVCs with HRs ranging from 59-167 bpm. Subsequently started on metoprolol XL 25 mg daily. Now feels well -Continue Toprol 25 mg daily (3) Depression: Plan: Anxiety/depression -Chronic. Stable. -Continue Wellbutrin 300 mg daily and trazodone 50 mg nightly (4) and not yet delivered in second trimester: Plan: Second trimester -, follows with Macey DRAPERY INSPECTOR. No complications to date. APpreciate OB consult -qshift dopp tones Plan Dispo-continued stay, improving, possible dc to home tomorrow if pain controlled/resolved Admission and Anticipated Discharge Date Admission Date: August 18, 2023 Subjective Pt was having severe pain earlier this AM and after another dose of IV morphine, now feeling much better. Pain previously in left flank now focused down in suprapubic region. [place] strong urge to urinate this AM but could not-was straight cathed for 250mL and since then has been able to urinate. Onl having nausea when pain is severe. No fevers/chills. I discussed her care w/ Urology No vag bleeding or ctx. Physical Exam Constitutional: WD/WN, vitals as above Neck: trachea midline, no thyromegaly Respiratory: normal respiratory effort, lungs clear to auscultation Cardiovascular: RRR, no murmur, no edema Chest (Breasts): Chest: normal inspection of chest Gastrointestinal (Abdomen): normal bowel sounds, soft, nontender, no hepatosplenomegaly Inspection/Auscultation: + abdomen abnormal to inspection (gravid) Musculoskeletal: Extremities: extremities normal to inspection; no cyanosis and no clubbing Skin: no rashes, warm and dry Neurologic: moves all extremities and awake; no focal motor deficits Psychiatric: A+Ox3, euthymic affect Lymphatic: no lymphedema Results & Data Results & Data Vital Signs (Past 12 Hours) Vital Signs Temp Pulse Resp BP Pulse Ox O2 Del Method 08/19/23 08:06 36.6 C 78 16 100/67 100 Room Air Laboratory Results CBC, BMP reviewed PG Care Time/CCT Total # of Minutes Spent Total Time Spent with Patient: Total time spent is greater than 50% in coordination of care (as documented) at patient's floor/unit and/or counseling patient: Coding Level of Care Code 79779 SUB INP/OBS CARE 2/35MIN Diagnoses Renal colic N23 Symptomatic PVCs I49.3 Depression F32.9 Depression Type: major depressive disorder Major depression recurrence: unspecified whether recurrent and not yet delivered in second trimester Z34.92 (3) Depression Depression Type: major depressive disorder Major depression recurrence: un specified whether recurrent
[2023-08-19] MEDS ORDERED: ONDANSETRON INJ 2 MG/ML 2 ML VIAL IV STA (19:26)
[2023-08-19] MEDS: traZODone HCL 50 MG TAB PO SCH (20:01)
[2023-08-20] MEDS: MoRPHine SULFATE 2 MG/ML CARP IV PRN ×2 (01:39→04:09)
[2023-08-20] MEDS: MoRPHine SULFATE 4 MG/ML 1 ML CARP\\VIAL IV PRN ×3 (02:23→14:45)
[2023-08-20] MEDS: ONDANSETRON INJ 2 MG/ML 2 ML VIAL IV PRN ×2 (03:48→15:56)
[2023-08-20] MEDS: oxyCODONE HCL IR 5 MG TAB (IMMEDIATE RELEASE) PO PRN ×4 (04:57→23:05)
[2023-08-20] MEDS: SODIUM CHLORIDE 0.9% 1,000 ML IV SCH ×3 (05:17→23:11)
--- NOTE | 2023-08-20 06:42 | Communication Note ---
Date of Service: August 20, 2023 Notified by nursing at 2:30 AM regarding patient's persistent pain and request for morphine. Reviewed urology progress notes detailing tentative plan to complete CT abdomen/pelvis to rule out nephrolith in the event of persistent, refractory pain. When upstairs to examine patient, who continued to complain of sharp, stabbing flank and abdominal pain despite multiple, regular doses of IV morphine. Ordered CT A/P due to persistent pain patient received as needed oxycodone 5 mg prior to imaging. Visualized left-sided stone measuring approximately 3.63 mm in diameter, per my read. Awaiting official read by radiology.
[2023-08-20 08:03] LABS: Hematocrit (blood only) 32.3 % (37.0-47.0); Hemoglobin 10.5 g/dl (12.0-16.0); Mean Corpuscular Hemoglobin 30.1 pg (25.0-34.0); Mean Corpuscular Hgb Conc 32.5 g/dL (32.0-36.0); Mean Corpuscular Volume 92.6 fL (80.0-100.0); Mean Platelet Volume 10.3 fL (9.4-12.4); Platelet Count 187 K/uL (130-400); RDW Coefficient of Variation 13.2 % (11.5-14.5); RDW Standard Deviation 44.6 fL (36.4-46.3); Red Blood Count 3.49 M/uL (4.20-5.40); White Blood Count 5.24 K/ul (4.8-10.8)
[2023-08-20 08:34] LABS: Anion Gap 4 (3-11); Blood Urea Nitrogen 5 mg/dl (6-23); Carbon Dioxide 25 mmol/L (21-32); Chloride 107 mmol/L (98-107); Creatinine Clr Calc Pharmacy 165.7 ml/min; Est GFR (African American) > 150.0 ml/min; Est GFR (Non-African American) 130.8 ml/min; Glucose 94 mg/dl (70-99(Fasting)); Potassium 3.5 mmol/L (3.5-5.1); Sodium 136 mmol/L (136-145)
[2023-08-20] MEDS: METOPROLOL SUCC 25MG EXT REL TAB PO SCH (09:05)
[2023-08-20] MEDS: buPROPion XL 300 MG TABCR PO SCH (09:05)
[2023-08-20] MEDS: PRENATAL VITAMIN 1 TAB PO SCH (09:05)
[2023-08-20] MEDS: ACETAMINOPHEN 500 MG TAB PO SCH ×3 (09:05→23:06)
[2023-08-20] MEDS: PYRIDOXINE HCL 50 MG TAB PO SCH (09:05)
[2023-08-20] MEDS: CEFDINIR 300 MG CAP PO SCH ×2 (09:54→23:06)
--- NOTE | 2023-08-20 11:07 | CT Scan Report ---
ABDOMEN AND PELVIS CT WITHOUT CONTRAST CT DOSE: 1280.61 mGy.cm HISTORY: Acute bilateral flank pain in a patient with history of kidney stones. The patient is curren tly . renal colic (@ 24 weeks) eval for stone TECHNIQUE: Multiaxial CT images of the abdomen and pelvis were performed without contrast. A dose lo wering technique was utilized adhering to the principles of ALARA. COMPARISON STUDY: Renal ultrasound 08/18/2023, CT 03/13/2023. FINDINGS: Clear lung bases. No free air. The unenhanced spleen, pancreas and adrenal glands are unrem arkable. Mildly distended gallbladder. The liver is unremarkable. Three nonobstructing calculi of the right kidney measure up to 4 mm. Eight nonobstructing calculi of the left kidney measure up to 4-5 mm. There is a 5 x 4 x 6 mm calcification within the left hemipelvi s on image 310 series 3 is suggestive of a distal ureteral calculus, a few centimeters upstream to th e ureterovesicular junction. No significant associated obstructive uropathy. There is a 4 mm phleboli th within the left hemipelvis on images through 313. Anteflexed uterus. There is an intrauterine fetu s within breech positioning. Anterior placenta. Aorta and IVC are unremarkable. Borderline enlarged i nguinal chain lymph nodes are likely reactive. No bowel obstruction or bowel wall thickening. Moderate colonic fecal retention. Noninflamed appendix . Unremarkable soft tissues. No acute fracture. IMPRESSION: 1. 6 mm left distal ureteral calculus without significant obstructive uropathy. 2. Bilateral nephrolithiasis. 3. Intrauterine fetus in breech positioning. 4. Normal appendix. ACT 112: Negative or not required by law. The above report was generated using voice recognition software. It may contain grammatical, syntax o r spelling errors. Dictated: 08/20/2023 7:38 AM Transcribed: 08/20/2023 8:11 AM Inder [id number] [email or web address] Electronically signed by: Dallas Mcdonald M.D. 08/20/2023 11:06 AM
--- NOTE | 2023-08-20 12:07 | Urology Progress Note ---
Date of Service August 20, 2023 Assessment & Plan (1) Renal colic on left side: (2) Ureteral calculus, left: Plan: 28-year-old female who is currently 24 weeks who was admitted with left flank pain and microscopic hematuria with a suspected obstructing ureteral calculus. Patient is afebrile, hemodynamically stable Today's labscreatinine 0.50, no leukocytosis Urine culture 08/[address] imaging reviewed and discussednotable for a distal left ureteral calculus measuring 6 mm without significant obstructive uropathy; bilateral nephrolithiasis Patient continues to have discomfort requiring routine IV and oral pain medication We discussed options for stone management including observation/trial of passage versus transfer to a tertiary center for possible surgical intervention as previously discussed She is agreeable to transfer for possible intervention Discussed with hospitalist regarding possible transfer Continue supportive care and prn analgesia per hospital medicine/OB will follow Admission and Anticipated Discharge Date Admission Date: August 18, 2023 Subjective Patient seen and examined at bedside, chart reviewed. Awake and resting in bed, currently getting an OB-NST. Continues to utilize IV morphine and PO oxycodone at regular intervals. She reports pain is located in the left pelvic area and vaginal. Voiding spontaneous without difficulty. Notes dysuria with voids and after. Intermittent nausea. No fever, occasional chills. Review of Systems Constitutional: as per Subjective / HPI Gastrointestinal: as per Subjective / HPI Genitourinary: as per Subjective / HPI Physical Exam Physical Exam: General: well-appearing, no acute distress HEENT: Normocephalic, mucous membranes moist Pulmonary: Nonlabored respirations Abdomen: gravid abdomen Extremities: Moves all 4 spontaneously Neuro: No gross deficits Psych: alert and oriented, normal mood Skin: Warm, dry, no rashes noted Results & Data Vital Signs (Past 12 Hours) Vital Signs Temp Pulse Resp BP Pulse Ox O2 Del Method 08/20/23 07:44 36.5 C 76 17 103/55 L 100 Room Air PG Care Time/CCT Total # of Minutes Spent Total Time Spent with Patient: Total time spent is greater than 50% in coordination of care (as documented) at patient's floor/unit and/or counseling patient: Coding Level of Care Code 94961 SUB INP/OBS CARE 2/35MIN Diagnoses Renal colic on left side N23 Ureteral calculus, left N20.1
[2023-08-20] MEDS ORDERED: Nursing to Pharmacy Communication SCH (14:30)
--- NOTE | 2023-08-20 16:05 | Hospitalist Progress Note ---
Date of Service August 20, 2023 Assessment & Plan (1) Renal colic: Plan: 28-year-old currently 24 weeks presenting with persistent left flank pain and admitted for acute management of left ureterolithiasis due to intractable pain Renal colic/left flank pain -Had renal ultrasound on 08/17 which showed left-sided hydronephrosis. Repeat ultrasound on 08/18 no longer showed hydronephrosis -Had persistent pain and had CT abdomen/pelvis on 08/19 which did confirm multiple bilateral nephrolithiases as well as a left distal 6 mm ureteral stone -Continue NS IVFs but increase to 150 mL/hr for expulsive therapy, avoid FLomax in - Bacteriuria from previous UA (no nitrites, LE) now resolved-remains on on cefdinir, urine culture negative -Afebrile, repeat UA negative for bacteria, nitrites, or leukocyte esterase. -Renal function is normal -consult Urology appreciated-recommended transfer out for possible urologic procedure and facility that had NICU in case of labor, or for nephrostomy tubes. After lengthy discussion with multiple specialists at [facility] in [place] on 08/20, ultimately they did not accept her and felt more time should be given to allow the stone to pass on its own if possible -Switch IV morphine to IV Dilaudid which seems to be working better -Plan to repeat renal ultrasound in 1 week to see if any hydronephrosis persists -If stone not passing, then would transfer for nephrostomy tubes-will likely give this at least a few more days (2) Symptomatic PVCs: Plan: -History of heart palpitation, previously on propranolol. History of suspected hyperthyroidism secondary to thyroiditis, however she is euthyroid at present. -Propranolol stopped by patient due to . Was referred to cardiology ([facility]) by deckhand tuna boat for return of palpitations following discontinuation of propranolol. -Diagnosed with symptomatic PVCs with HRs ranging from 59-167 bpm. Subsequently started on metoprolol XL 25 mg daily. Now feels well -Continue Toprol 25 mg daily (3) Depression: Plan: Anxiety/depression -Chronic. Stable. 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 No complications to date. APpreciate OB consult -qshift NS Plan Dispo-continued stay I overall spent 75 minutes in the care of this patient today trying to arrange transfer and discussion with multiple specialists Admission and Anticipated Discharge Date Admission Date: August 18, 2023 Subjective Patient seen on 2 occasions today. She continued to have more left flank and lower abdominal pain through the night and had a CT abdomen/pelvis which confirmed numerous bilateral stones in the kidneys and a left distal ureter 6 mm obstructing stone. She was agreeable to transfer to tertiary care, however I spent over 60 minutes on the phone with transfer center and speaking with both urology as well as the hospitalist who also consulted with interventional radiology I discussed her case with our radiology department as well as urology. Ultimately, tertiary care did not accept her in transfer as they felt more time should be given for the stone to pass on its own. Patient continued to have significant pain through the day and night converted her to Dilaudid which then helped more than the morphine. Physical Exam Constitutional: WD/WN, vitals as above Neck: trachea midline, no thyromegaly Respiratory: normal respiratory effort, lungs clear to auscultation Cardiovascular: RRR, no murmur, no edema Chest (Breasts): Chest: normal inspection of chest Gastrointestinal (Abdomen): normal bowel sounds, soft, nontender, no hepatosplenomegaly Inspection/Auscultation: + abdomen abnormal to inspection (gravid) Musculoskeletal: Extremities: extremities normal to inspection; no cyanosis and no clubbing Skin: no rashes, warm and dry Neurologic: moves all extremities and awake; no focal motor deficits Psychiatric: A+Ox3, euthymic affect Lymphatic: no lymphedema Results & Data Results & Data Vital Signs (Past 12 Hours) Vital Signs Temp Pulse Resp BP Pulse Ox O2 Del Method 08/20/23 14:35 36.6 C 82 17 113/73 97 Room Air 08/20/23 07:44 36.5 C 76 17 103/55 L 100 Room Air Laboratory Results CBC, BMP reviewed Diagnostic Findings CT abdomen/pelvis images personally reviewed by me PG Care Time/CCT Total # of Minutes Spent Total Time Spent with Patient: Total time spent is greater than 50% in coordination of care (as documented) at patient's floor/unit and/or counseling patient: Coding Level of Care Code 39387 SUB INP/OBS CARE 3/50MIN Diagnoses Renal colic N23 Symptomatic PVCs I49.3 Depression F32.9 Depression Type: major depressive disorder Major depression recurrence: unspecified whether recurrent and not yet delivered in second trimester Z34.92 (3) Depression Depression Type: major depressive disorder Major depression recurrence: unspecified whether recurrent
[2023-08-20] MEDS: HYDROmorphone INJ 0.5 MG/0.5 ML SYR IV PRN ×2 (16:51→21:22)
[2023-08-20] MEDS: traZODone HCL 50 MG TAB PO SCH (21:23)
[2023-08-21] MEDS ORDERED: HYDROmorphone INJ 0.5 MG/0.5 ML SYR IV STA (00:58)
[2023-08-21] MEDS ORDERED: HYDROmorphone INJ 0.5 MG/0.5 ML SYR ONE (01:18)
[2023-08-21] MEDS: HYDROmorphone INJ 0.5 MG/0.5 ML SYR IV PRN ×5 (02:10→20:28)
[2023-08-21] MEDS: oxyCODONE HCL IR 5 MG TAB (IMMEDIATE RELEASE) PO PRN ×4 (03:24→18:22)
[2023-08-21 06:39] LABS: Hematocrit (blood only) 31.3 % (37.0-47.0); Hemoglobin 10.3 g/dl (12.0-16.0); Mean Corpuscular Hemoglobin 30.4 pg (25.0-34.0); Mean Corpuscular Hgb Conc 32.9 g/dL (32.0-36.0); Mean Corpuscular Volume 92.3 fL (80.0-100.0); Mean Platelet Volume 10.2 fL (9.4-12.4); Platelet Count 180 K/uL (130-400); RDW Coefficient of Variation 13.2 % (11.5-14.5); RDW Standard Deviation 44.6 fL (36.4-46.3); Red Blood Count 3.39 M/uL (4.20-5.40); White Blood Count 5.11 K/ul (4.8-10.8)
[2023-08-21 06:52] LABS: BUN Creatinine Ratio 9.6 (10-20); Calcium 7.6 mg/dl (8.6-10.3); Creatinine Clr Calc Pharmacy 159.4 ml/min; Est GFR (African American) 149.6 ml/min; Est GFR (Non-African American) 129.1 ml/min; Potassium 3.1 mmol/L (3.5-5.1)
[2023-08-21] MEDS: SODIUM CHLORIDE 0.9% 1,000 ML IV SCH ×3 (07:24→21:42)
--- NOTE | 2023-08-21 08:55 | Urology Progress Note ---
Date of Service August 21, 2023 Assessment & Plan (1) Renal colic on left side: (2) Ureteral calculus, left: Plan: 28-year-old female who is currently 24 weeks who was admitted with left flank pain and microscopic hematuria with a suspected obstructing ureteral calculus. Patient is afebrile, hemodynamically stable Today's labscreatinine 0.52, no leukocytosis Urine culture 08/17 with no growth Patient continues to have discomfort requiring routine IV and oral pain medication We reviewed options for stone management including observation/trial of passage versus transfer to a tertiary center for consideration of surgical intervention as previously discussed Given her persistent intractable pain requiring analgesia, recommend transfer to tertiary center for possible intervention She is agreeable to transfer If she develops fever, then urgent transfer would be required Continue supportive care, medical management and prn analgesia per hospital medicine/OB will follow peripherally, please contact us with any questions or concerns Admission and Anticipated Discharge Date Admission Date: August 18, 2023 Subjective Patient seen and examined at bedside this morning, chart reviewed She is awake and resting in bed with OB-NST Reports a very difficult night with severe left flank pain, ongoing pelvic/vaginal discomfort She is voiding spontaneously and thinks she is emptying fairly well Continues to note burning with urination and after Denies nausea, vomiting, fever or chills at this time Review of Systems Constitutional: as per Subjective / HPI Gastrointestinal: as per Subjective / HPI Genitourinary: as per Subjective / HPI Physical Exam Physical Exam: General: well-appearing, no acute distress HEENT: Normocephalic, mucous membranes moist Pulmonary: Nonlabored respirations Abdomen: gravid abdomen Extremities: Moves all 4 spontaneously Neuro: No gross deficits Psych: alert and oriented, normal mood Skin: Warm, dry, no rashes noted Results & Data Vital Signs (Past 12 Hours) Vital Signs Temp Pulse Resp BP Pulse Ox O2 Del Method 08/21/23 07:26 36.5 C 81 16 109/72 100 Room Air 08/20/23 20:52 36.8 C 79 18 113/71 99 Room Air PG Care Time/CCT Total # of Minutes Spent Total Time Spent with Patient: Total time spent is greater than 50% in coordination of care (as documented) at patient's floor/unit and/or counseling patient: Coding Level of Care Code 95664 SUB INP/OBS CARE 2/35MIN Diagnoses Renal colic on left side N23 Ureteral calculus, left N20.1
[2023-08-21] MEDS ORDERED: POTASSIUM CHLORIDE CRTAB 20 MEQ TABCR PO STA (09:10)
[2023-08-21] MEDS: buPROPion XL 300 MG TABCR PO SCH (09:18)
[2023-08-21] MEDS: METOPROLOL SUCC 25MG EXT REL TAB PO SCH (09:18)
[2023-08-21] MEDS: ACETAMINOPHEN 500 MG TAB PO SCH ×2 (09:18→16:53)
[2023-08-21] MEDS: PRENATAL VITAMIN 1 TAB PO SCH (09:18)
[2023-08-21] MEDS: PYRIDOXINE HCL 50 MG TAB PO SCH (09:19)
[2023-08-21] MEDS: FAMOTIDINE 20 MG TAB PO SCH (09:21)
[2023-08-21] MEDS ORDERED: TAMSULOSIN HCL 0.4 MG CAP PO ONE (09:57)
[2023-08-21] MEDS: ONDANSETRON INJ 2 MG/ML 2 ML VIAL IV PRN (11:14)
--- NOTE | 2023-08-21 17:13 | Hospitalist Progress Note ---
Date of Service August 21, 2023 Assessment & Plan (1) Renal colic: Plan: 28-year-old currently 24 weeks presenting with persistent left flank pain and admitted for acute management of left ureterolithiasis due to intractable pain Renal colic/left flank pain -Had renal ultrasound on 08/17 which showed left-sided hydronephrosis. Repeat ultrasound on 08/18 no longer showed hydronephrosis -Had persistent pain and had CT abdomen/pelvis on 08/19 which did confirm multiple bilateral nephrolithiases as well as a left distal 6 mm ureteral stone -Consulted Urology -recommended transfer out for possible urologic procedure and facility that had NICU in case of labor, or for nephrostomy tubes. After lengthy discussion with multiple specialists at [facility] in [place] on 08/20, ultimately they did not accept her and felt more time should be given to allow the stone to pass on its own if possible -continues with pain and so stone has not yet passed -Continue NS IVF 150 mL/hr for expulsive therapy -discussed FLomax use with Urology who says it is ok for short term use in 2nd and 3rd trimester--> add on Flomax - Bacteriuria from previous UA (no nitrites, LE) now resolved-remains on on cefdinir, urine culture negative-dc cefdinir -Afebrile, repeat UA negative for bacteria, nitrites, or leukocyte esterase. 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 No complications to date. APpreciate OB consult -qshift NS (3) Hypokalemia: Plan: mildly low K replace with po K and follow BMP (4) GERD (gastroesophageal reflux disease): Plan: had heartburn-add on pepcid (5) Depression: Plan: Anxiety/depression -Chronic. Stable. -Continue Wellbutrin 300 mg daily and trazodone 50 mg nightly (6) Symptomatic PVCs: Plan: -History of heart palpitation, previously on propranolol. History of suspected hyperthyroidism secondary to thyroiditis, however she is euthyroid at present. -Propranolol stopped by patient due to . 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 -Diagnosed with symptomatic PVCs with HRs ranging from 59-167 bpm. Subsequently started on metoprolol XL 25 mg daily. Now feels well -Continue Toprol 25 mg daily Plan Dispo-continued stay Admission and Anticipated Discharge Date Admission Date: August 18, 2023 Subjective Had terrible pain overnight but it seems her IV infiltrated and even though she received the IV dilaudid, she did not get any relief. Had a new IV placed and then medication was effective. Still has pain with urination feels like knives stabbing her in the suprapubic region. I discussed her care with Urology Physical Exam Constitutional: WD/WN, vitals as above Neck: trachea midline, no thyromegaly Respiratory: normal respiratory effort, lungs clear to auscultation Cardiovascular: RRR, no murmur, no edema Chest (Breasts): Chest: normal inspection of chest Gastrointestinal (Abdomen): Inspection/Auscultation: + abdomen abnormal to inspection (gravid) Musculoskeletal: Extremities: extremities normal to inspection; no cyanosis and no clubbing Skin: no rashes, warm and dry Neurologic: moves all extremities and awake; no focal motor deficits Psychiatric: A+Ox3, euthymic affect Lymphatic: no lymphedema Results & Data Results & Data Vital Signs (Past 12 Hours) Vital Signs Temp Pulse Resp BP BP Pulse Ox O2 Del Method 08/21/23 15:45 36.6 C 83 16 111/75 97 Room Air 08/21/23 07:26 36.5 C 81 16 109/72 100 Room Air Laboratory Results CBC, BMP reviewed PG Care Time/CCT Total # of Minutes Spent Total Time Spent with Patient: Total time spent is greater than 50% in coordination of care (as documented) at patient's floor/unit and/or counseling patient: Coding Level of Care Code 26227 SUB INP/OBS CARE 2/35MIN Diagnoses Renal colic N23 and not yet delivered in second trimester Z34.92 Hypokalemia E87.6 GERD (gastroesophageal reflux disease) K21.9 Depression F32.9 Depression Type: major depressive disorder Major depression recurrence: unspecified whether recurrent Symptomatic PVCs I49.3 (5) Depression Depression Type: major depressive disorder Major depression recurrence: unspecified whether recurrent
[2023-08-21] MEDS: traZODone HCL 50 MG TAB PO SCH (20:30)
[2023-08-22] MEDS: oxyCODONE HCL IR 5 MG TAB (IMMEDIATE RELEASE) PO PRN ×5 (00:28→20:04)
[2023-08-22] MEDS: ACETAMINOPHEN 500 MG TAB PO SCH ×3 (00:32→16:58)
[2023-08-22] MEDS: HYDROmorphone INJ 0.5 MG/0.5 ML SYR IV PRN ×4 (02:20→18:29)
[2023-08-22] MEDS: SODIUM CHLORIDE 0.9% 1,000 ML IV SCH ×2 (04:42→12:11)
[2023-08-22 08:24] LABS: Anion Gap 3 (3-11); Calcium 7.7 mg/dl (8.6-10.3); Carbon Dioxide 24 mmol/L (21-32); Chloride 110 mmol/L (98-107); Potassium 3.9 mmol/L (3.5-5.1); Sodium 137 mmol/L (136-145)
[2023-08-22 08:31] LABS: BUN Creatinine Ratio 8.5 (10-20); Blood Urea Nitrogen 4 mg/dl (6-23); Creatinine Clr Calc Pharmacy 176.3 ml/min; Est GFR (African American) > 150.0 ml/min; Est GFR (Non-African American) 133.5 ml/min; Glucose 77 mg/dl (70-99(Fasting))
[2023-08-22] MEDS ORDERED: TAMSULOSIN HCL 0.4 MG CAP PO SCH ×2 (09:00→21:00)
[2023-08-22] MEDS: buPROPion XL 300 MG TABCR PO SCH (09:19)
[2023-08-22] MEDS: PRENATAL VITAMIN 1 TAB PO SCH (09:19)
[2023-08-22] MEDS: FAMOTIDINE 20 MG TAB PO SCH (09:19)
[2023-08-22] MEDS: METOPROLOL SUCC 25MG EXT REL TAB PO SCH (09:19)
[2023-08-22] MEDS: PYRIDOXINE HCL 50 MG TAB PO SCH (09:20)
[2023-08-22] MEDS: ONDANSETRON INJ 2 MG/ML 2 ML VIAL IV PRN (10:33)
[2023-08-22] MEDS ORDERED: DOCUSATE SODIUM 100 MG CAP PO SCH (12:45)
[2023-08-22] MEDS ORDERED: POLYETHYLENE (MIRALAX) 17 GM PACK PO SCH (12:45)
--- NOTE | 2023-08-22 14:27 | Ultrasound Report ---
RENAL ULTRASOUND HISTORY: left flank pain,,assess for hydronephrosis COMPARISON: Abdomen and pelvis CT 08/20/2023. FINDINGS: Right kidney: 12.4 cm. There is a 3 mm stone within the interpolar region. No hydronephrosis. Normal corticomedullary differentiation and cortical thickness. Left kidney: 12.6 cm. Mild left hydronephrosis. A few stones with the largest in the upper pole measu ring 5 mm. Normal corticomedullary differentiation and cortical thickness. Bladder: No bladder wall thickening. The bilateral ureteral jets were identified. Miscellaneous: There is a single intrauterine gestation with a heart rate of 131 BPM. IMPRESSION: 1. Mild left hydronephrosis. This may be secondary to the patient's distal left ureteral stone seen o n the recent CT examination. 2. Bilateral nephrolithiasis. ACT 112: Negative or not required by law. Electronically signed by: Triston Castillo M.D. 08/22/2023 2:26 PM
--- NOTE | 2023-08-22 17:25 | Discharge Summary ---
Discharge Summary Date of Service August 22, 2023 Notes For Next Care Provider Medication Changes From Visit Flomax 0.4mg po daily Pepcid 20mg po daily Miralax 17 grams po bid Docusate 100mg po bid Admission HPI Per Admitting Provider Damaris is a 28-year-old (24 weeks ) with a past medical history of anxiety/depression, symptomatic PVCs, chronic lumbar pain, and a relatively recent history of kidney stones (s/p cystoscopy, stent placement), who presents today with persistent left-sided flank pain. She presented to the emergency room yesterday for the same renal ultrasound done at that visit revealed left- sided hydronephrosis without stone visualized. She was discharged home on cefdinir and Percocet for pain. She presented again today to the emergency room for persistent pain despite taking pain control meds. In the ED, vitals were within normal limits. Labs were notable for lipase of 118 and urinalysis showing hematuria 1+, though negative for LE, nitrites (1+ bacteriuria from yesterday's UA resolved). Repeat renal ultrasound showed resolution of previously noted left hydronephrosis, though calyectasis was observed again no stones, obstructive or otherwise, were seen. She received multiple doses of IV morphine totaling 16 mg and IV Zofran 4 mg x 2 doses. Hospitalist service was then consulted for admission. HPI is unchanged on adm ission. ROS + nausea (without vomiting), and sharp, burning pain on urination. Principal Dx & Hospital Course #1 = Principal Diagnosis (1) Renal colic: 28-year-old at 24=4 wga presenting with persistent left flank pain and admitted for acute management of left ureterolithiasis due to intractable pain -Had renal ultrasound on 08/17 which showed left-sided hydronephrosis. Repeat ultrasound on 08/18 no longer showed hydronephrosis -Had persistent pain and had CT abdomen/pelvis on 08/19 which did confirm multiple bilateral nephrolithiases as well as a left distal 6 mm ureteral stone -Consulted Urology -recommended transfer out for possible urologic procedure and facility that had NICU in case of labor, or for nephrostomy tubes. -attempted expulsive therapy x 5 days with IVFs, Flomax, but still requiring around the clock IV opioids for pain control -continues with left flank and suprpaubic pain and so stone has not yet passed -repeat Renal US again 08/22 with left hydronephrosis -Continue NS IVF 150 mL/hr -continue FLomax - Bacteriuria from previous UA (no nitrites, LE) now resolved-remains on on cefdinir, urine culture negative-dcd cefdinir after 5 days -Afebrile, repeat UA negative for bacteria, nitrites, or leukocyte esterase. -Renal function is normal -continue IV Dilaudid and po oxycodone prn -add on docusate and Miralax for constipation from opioids and Transfer to [facility]-will have percutaneous nephrostomy tube (2) and not yet delivered in second trimester: -, 24+4 wga No complications to date other than kidney stones APpreciate OB consult -qshift NST normal (3) Hypokalemia: mildly low K replace with po K and follow BMP (4) GERD (gastroesophageal reflux disease): had heartburn-added on pepcid (5) Depression: -Chronic. Stable. -Continue Wellbutrin 300 mg daily and trazodone 50 mg nightly (6) Symptomatic PVCs: -History of heart palpitation, previously on propranolol. History of suspected hyperthyroidism secondary to thyroiditis, however she is euthyroid at present. -Propranolol stopped by patient due to . Was referred to cardiology ([place] at [facility]) by fuel buyer for return of palpitations following discontinuation of propranolol. -Diagnosed with symptomatic PVCs with HRs ranging from 59-167 bpm. Subsequently started on metoprolol XL 25 mg daily. Now feels well -Continue Toprol 25 mg daily Plan Dispo-transfer to [facility] Discharge Exam Constitutional WD/WN, vitals as above Neck trachea midline, no thyromegaly Respiratory normal respiratory effort, lungs clear to auscultation Cardiovascular RRR, no murmur, no edema Chest (Breasts) Chest: normal inspection of chest Gastrointestinal (Abdomen) normal bowel sounds, soft, nontender, no hepatosplenomegaly Inspection/Auscultation: + abdomen abnormal to inspection (gravid) Musculoskeletal Extremities: extremities normal to inspection; no cyanosis and no clubbing Skin no rashes, warm and dry Neurologic moves all extremities and awake; no focal motor deficits Psychiatric A+Ox3, euthymic affect Lymphatic no lymphedema Updated Medication List Medication Instructions Recorded Confirmed Type PNV 153-FA 400 mcg-om3 35 mg-dha 1 tab PO DAILY 08/17/23 08/18/23 History 25 mg-epa 5 mg-fish oil chew tablet ( Gummies) bupropion HCl 300 mg 24 hr tablet, 300 mg PO QAM 08/17/23 08/18/23 History extended release iron 18 mg tablet 18 mg PO DAILY 08/17/23 08/18/23 History metoprolol succinate 25 mg 25 mg PO QAM 08/17/23 08/18/23 History tablet,extended release 24 hr ondansetron HCl 8 mg tablet 8 mg PO Q8H PRN NAUSEA/VOMITING 08/17/23 08/18/23 History pyridoxine (vitamin B6) 100 mg 100 mg PO DAILY 08/17/23 08/18/23 History tablet (Vitamin B-6) trazodone 50 mg tablet 50 mg PO HS 08/17/23 08/18/23 History docusate sodium 100 mg capsule 100 mg PO BID #2 caps 08/22/23 Rx famotidine 20 mg tablet 20 mg PO QAM #2 tabs 08/22/23 Rx polyethylene glycol 3350 17 gram 17 g PO BID #14 ea 08/22/23 Rx oral powder packet (Miralax) tamsulosin 0.4 mg capsule 0.4 mg PO QAM #1 cap 08/22/23 Rx Hospital Stay Data Consultations 08/18/23 19:22 ED Decision to Admit Stat 08/18/23 20:51 Consult Obstetrics Routine 08/19/23 08:03 Consult Urology Routine 08/22/23 17:15 Burn CD for patient Stat Diagnostic Imagining Performed 08/18/23 17:35 US Renal Bladder [US renal/blad retro comp] Stat 08/20/23 04:34 CT abd pelvis wo con Urgent 08/22/23 12:33 US renal/blad retro comp Stat Pending Results Patient Have Any Pending Studies at Discharge: No Discharge Instructions Given to Patient (Per Discharging Provider) Transferred to [facility] Total Time Total Time Spent Total Time Spent (In Minutes): 60 min Coding Level of Care Code 15255 INP/OBS DISCH >30 MIN Diagnoses Renal colic N23 and not yet delivered in second trimester Z34.92 Hypokalemia E87.6 GERD (gastroesophageal reflux disease) K21.9 Depression F32.9 Depression Type: major depressive disorder Major depression recurrence: unspecified whether recurrent Symptomatic PVCs I49.3
== END 2023-08-22 20:46 | disposition short-term general hospital (02) | DRG 694 ==
LOC: ED 17:02 → SUATTDRO 22:09 → 3E 22:09

== ENCOUNTER 2023-09-25 08:21 | Inpatient (IN) ==
--- NOTE | 2023-09-25 08:45 | Emergency Department Note ---
Impression & Plan Renal colic on left side, Nausea & vomiting, Acute flank pain, ED Provider Note NAME: MARCELA MILIAN AGE: 28 SEX: F : 1995 ARRIVES VIA: Walk-In INFORMANT: Patient, ED PROVIDER(S): Blair Cortez MD CHIEF COMPLAINT: MEDICAL DECISION MAKING: Patient presents due to concern for flank pain in the setting of and known history of kidney stones. IV was established blood work was obtained and patient did receive IV morphine IV Zofran as well as CT abdomen pelvis without contrast. Patient does have a known history of renal colic as well as nonobstructing kidney stones with the possibility of an obstructing stone. Patient did just passed a stone at the time of assessment. pass a stone at the time of her assessment. Blood shows a normal white count mild anemia hemoglobin 11.3 with normal platelet count kidney function unremarkable. LFTs unremarkable. Urinalysis shows blood but no signs of obvious infection. Patient is Rh+ in the event the patient did have some vaginal bleeding but sounds like patient likely had some bleeding associate with her hematuria. Patient did receive several doses of IV narcotic pain medication. Patient with on-call urology Natasha Ramos who discussed the case with on-call urologist Dr. Guzman. They are comfortable with consulting the patient would be admitted for pain control. Discussion w/ other healthcare providers: Natasha Ramos PA-C and Dr. Guzman urology Dr. [facility] inpatient medicine service Prior /Outside records reviewed: I reviewed a discharge summary from Dr. Ferrer from August 22, 2023. The patient was seen as a 24-week woman who does have a prior history of hydronephrosis. The patient reportedly was transferred to [facility] [address] for possible percutaneous nephrostomy tube. I reviewed a discharge summary for Dr. Hines from September 02, 2023 the patient was admitted and August 22. The patient at that time was transferred from [facility] due to concern for left-sided flank pain with kidney stones noted to have bilateral nephrolithiasis as well as left distal 6 mm ureteral stone. Patient was treated conservatively with Flomax IV and Dilaudid LAPEL PADDER with which Dilaudid need to be recently reinitiated after being discontinued and subsequently elected to undergo left ureteroscopic and laser lithotripsy. Patient was discharged Differential diagnosis: Renal colic, UTI, pyelonephritis, appendicitis, diverticulitis, strain, sprain, fracture among others were considered. Diagnostics, as interpreted by me: ECG: None Cardiac monitoring: An order was placed for continuous cardiac monitoring. The monitor shows a rate of 87 with sinus rhythm. Patient was placed on pulse oximetry Medical decision rules: None Imaging studies: I informally interpreted the patient's CT abdomen pelvis which does show renal stone with formal report to follow. HPI: Patient presents due to concern for flank pain. The patient states that she did notice small amount of blood but thinks it is from the kidney stone. The patient is 29 weeks with no issues with her . The patient does have a prior history of renal colic did have a recent transfer down to [place] where the patient did undergo a procedure in order to have a stone removed. The patient primarily complains of left flank pain with associated nausea vomiting. The patient did take 5 mg of oxycodone last evening. Patient denies any dysuria. No falls or trauma. PAST MEDICAL HISTORY: See Below PAST SURGICAL HISTORY: See Below SOCIAL HISTORY: See Below HOME MEDICATIONS: See Below ALLERGIES: See Below VITALS: See Below PHYSICAL EXAMINATION: GENERAL: NAD, non-toxic. EYE EXAM: Normal conjunctiva. PERRL, no anisocoria and EOM's grossly intact w/o pain. OROPHARYNX: Moist mucus membranes, grossly normal dentition. NECK: Supple, no nuchal rigidity, no adenopathy, non-tender. No signs of meningismus. FROM of the neck with good chin to chest and neck extension. No stridor. LUNGS: Clear to auscultation. Normal chest wall mechanics. HEART: NSR, no MRG. ABDOMEN: Abdomen soft, non-tender, no masses, no rebound or guarding. BACK: No CVA TTP. SKIN: No rashes and no bruising. UPPER EXTREMITIES: Upper extremities are grossly normal. LOWER EXTREMITIES: Grossly normal, no edema. NEURO EXAM: A&O x3, cranial nerves II-XII grossly intact, normal speech, moves all 4 extremities. Past Med/Surg History Medical History History of nephrolithiasis Abdominal pain Right ovarian cyst Developmental dyslexia Depression with anxiety GERD (gastroesophageal reflux disease) Myofascial pain Chronic low back pain Herniated disc LUMBAR AND CERVICAL (FULL ROM) History of kidney stones Sacroiliac joint pain Anxiety Vitamin D deficiency HX, ? CURRENT STATUS Surgical History History of laparoscopy History of breast lump/mass excision (01/17/22) Excision of left breast mass. Dr. Jason 01/17/2022 S/P cystoscopy with ureteral stent placement 12/05/20 Dr. Lamont Ambrose- Cystoscopy, Left ureteroscopy, Laser lithotripsy, Stone basket extraction of stone, Left retrograde pyelogram, Left ureteral stent placement Nasal fracture Repair of nasal fracture Family History Mother No problems noted. Grandmother (Maternal) Lung cancer Oral cancer Other Cancer Hypertension Kidney stones Denies family history of Ovarian cancer Prostate cancer Heart disease Myocardial infarction Breast cancer Colorectal cancer Social History Smoking Status: Never smoker Tobacco Type: E-cigarettes / Vaping Second Hand Exposure: No; Do You Dip or Chew Tobacco: No; Hx Alcohol Use: Yes Alcohol type: beer Hx Substance Use: No Preferred Language: Kittitian Communication Ability: Effective Visual Impairment: No Limitations Hearing Ability: Normal Tube Roller Required: No Beliefs That Will Affect Care: None marital status: Single Current Living Situation: Spouse Current Living Situation Comment: lives with boyfriend, her son and her boyfriends daughter current occupational status: employed 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 @ [employer] How many Children do You have: 1 Feels Safe at Home: Yes Childhood Exposure to Second-Hand Smoke: No Diet: regular during the past year weight has: increased > 10 lbs Physical Activity Frequency: Daily Seatbelt Use: always Sunscreen Use: Yes Assistive Devices: None Allergies Allergies Allergy/AdvReac Type Severity Reaction Status Date / Time aluminum [From Drysol] Allergy Intermediate Hives Verified 09/06/23 11:18 Home Meds Home Medications Medication Instructions Recorded Confirmed PNV 153-FA 400 mcg-om3 35 mg-dha 1 tab PO DAILY 08/17/23 09/25/23 25 mg-epa 5 mg-fish oil chew tablet ( Gummies) bupropion HCl 300 mg 24 hr tablet, 300 mg PO QAM 08/17/23 09/25/23 extended release iron 18 mg tablet 18 mg PO BID 08/17/23 09/25/23 metoprolol succinate 25 mg 12.5 mg PO QAM 08/17/23 09/25/23 tablet,extended release 24 hr ondansetron HCl 8 mg tablet 8 mg PO Q8H PRN NAUSEA/VOMITING 08/17/23 09/25/23 pyridoxine (vitamin B6) 100 mg 100 mg PO DAILY 08/17/23 09/25/23 tablet (Vitamin B-6) trazodone 50 mg tablet 50 mg PO HS 08/17/23 09/25/23 docusate sodium 100 mg capsule 100 mg PO BID PRN Constipation 09/25/23 09/25/23 famotidine 20 mg tablet 20 mg PO QAM PRN acid reflux 09/25/23 09/25/23 polyethylene glycol 3350 17 gram 17 g PO BID PRN Constipation 09/25/23 09/25/23 oral powder packet (Miralax) Results & Data (ED) Vital Signs Vital Signs - 24 hr 09/25/23 08:25 09/25/23 09:13 09/25/23 09:13 Temperature 36.2 C L Temperature Source Temporal Artery Scan Pulse Rate 110 H Pulse Rate [Apical] 112 H Pulse Rate from SpO2 Sensor Pulse Rhythm [Apical] Pulse Strength [Apical] Respiratory Rate 14 18 Respiratory Effort / Characteristics Respiratory Depth Normal Respiratory Pattern Blood Pressure 114/66 Blood Pressure [Right Arm] 111/84 Blood Pressure Mean 82 Blood Pressure Mean [Right Arm] 93 Blood Pressure Position [Right Arm] Pulse Oximetry 97 95 95 Oxygen Delivery Method Room Air Room Air Room Air Sepsis New/Unexplained Change in Mental Status No Sepsis Action Taken by Nursing No Action Required 09/25/23 09:24 09/25/23 09:25 09/25/23 09:26 Temperature Temperature Source Pulse Rate 101 H 100 H Pulse Rate [Apical] Pulse Rate from SpO2 Sensor 100 H Pulse Rhythm [Apical] Pulse Strength [Apical] Respiratory Rate 18 Respiratory Effort / Characteristics Respiratory Depth Respiratory Pattern Blood Pressure 107/74 Blood Pressure [Right Arm] Blood Pressure Mean 83 Blood Pressure Mean [Right Arm] Blood Pressure Position [Right Arm] Pulse Oximetry 97 Oxygen Delivery Method Sepsis New/Unexplained Change in Mental Status Sepsis Action Taken by Nursing 09/25/23 09:30 09/25/23 09:30 09/25/23 10:00 Temperature Temperature Source Pulse Rate 103 H Pulse Rate [Apical] Pulse Rate from SpO2 Sensor 101 H Pulse Rhythm [Apical] Pulse Strength [Apical] Respiratory Rate 19 Respiratory Effort / Characteristics Respiratory Depth Respiratory Pattern Blood Pressure 98/62 L 116/84 Blood Pressure [Right Arm] Blood Pressure Mean 69 101 Blood Pressure Mean [Right Arm] Blood Pressure Position [Right Arm] Pulse Oximetry 97 Oxygen Delivery Method Sepsis New/Unexplained Change in Mental Status Sepsis Action Taken by Nursing 09/25/23 10:00 09/25/23 10:11 09/25/23 10:30 Temperature Temperature Source Pulse Rate 92 H 81 Pulse Rate [Apical] 93 H Pulse Rate from SpO2 Sensor 91 H 83 Pulse Rhythm [Apical] Pulse Strength [Apical] Respiratory Rate 19 16 27 H Respiratory Effort / Characteristics Respiratory Depth Normal Respiratory Pattern Blood Pressure Blood Pressure [Right Arm] 116/84 Blood Pressure Mean Blood Pressure Mean [Right Arm] 94 Blood Pressure Position [Right Arm] Lying Pulse Oximetry 99 99 97 Oxygen Delivery Method Room Air Sepsis New/Unexplained Change in Mental Status Sepsis Action Taken by Nursing 09/25/23 10:30 09/25/23 11:00 09/25/23 11:00 Temperature Temperature Source Pulse Rate 88 Pulse Rate [Apical] Pulse Rate from SpO2 Sensor 92 H Pulse Rhythm [Apical] Pulse Strength [Apical] Respiratory Rate 19 Respiratory Effort / Characteristics Respiratory Depth Respiratory Pattern Blood Pressure 103/71 109/65 Blood Pressure [Right Arm] Blood Pressure Mean 81 73 Blood Pressure Mean [Right Arm] Blood Pressure Position [Right Arm] Pulse Oximetry 100 Oxygen Delivery Method Sepsis New/Unexplained Change in Mental Status Sepsis Action Taken by Nursing 09/25/23 11:30 09/25/23 11:30 09/25/23 13:18 Temperature Temperature Source Pulse Rate 78 79 Pulse Rate [Apical] Pulse Rate from SpO2 Sensor 78 Pulse Rhythm [Apical] Pulse Strength [Apical] Respiratory Rate 20 Respiratory Effort / Characteristics Respiratory Depth Respiratory Pattern Blood Pressure 93/62 L Blood Pressure [Right Arm] Blood Pressure Mean 87 Blood Pressure Mean [Right Arm] Blood Pressure Position [Right Arm] Pulse Oximetry 97 Oxygen Delivery Method Sepsis New/Unexplained Change in Mental Status Sepsis Action Taken by Nursing 09/25/23 14:29 09/25/23 15:12 Temperature Temperature Source Pulse Rate Pulse Rate [Apical] 89 86 Pulse Rate from SpO2 Sensor Pulse Rhythm [Apical] Regular Pulse Strength [Apical] Normal Normal Respiratory Rate 22 18 Respiratory Effort / Characteristics Non-Labored Non-Labored Spontaneous Respiratory Depth Normal Normal Respiratory Pattern Regular Regular Blood Pressure Blood Pressure [Right Arm] 130/82 112/74 Blood Pressure Mean Blood Pressure Mean [Right Arm] 98 86 Blood Pressure Position [Right Arm] Sitting Pulse Oximetry 97 97 Oxygen Delivery Method Room Air Room Air Sepsis New/Unexplained Change in Mental Status Sepsis Action Taken by Detention Medications Current Medication List: was personally reviewed by me Laboratory Data Attestation: I reviewed the patient's lab results. 09/25/23 08:53 09/25/23 08:53 Lab Results 09/25/23 09/25/23 Range/Units 08:53 09:31 WBC 8.73 (4.8-10.8) K/ul RBC 3.85 L (4.20-5.40) M/uL Hgb 11.3 L (12.0-16.0) g/dl Hct 33.8 L (37.0-47.0) % MCV 87.8 (80.0-100.0) fL MCH 29.4 (25.0-34.0) pg MCHC 33.4 (32.0-36.0) g/dL RDW Std Deviation 42.8 (36.4-46.3) fL RDW Coeff of Baldo 13.5 (11.5-14.5) % Plt Count 233 (130-400) K/uL MPV 10.3 (9.4-12.4) fL Immature Gran % (Auto) 1.5 % Neut % (Auto) 67.5 % Lymph % (Auto) 16.7 % [place] % (Auto) 12.5 % Eos % (Auto) 1.6 % Baso % (Auto) 0.2 % Neut # (Auto) 5.89 (1.40-6.50) K/uL Lymph # (Auto) 1.46 (1.20-3.40) K/uL [place] # (Auto) 1.09 H (0.11-0.59) K/uL Eos # (Auto) 0.14 (0.00-0.50) K/uL Baso # (Auto) 0.02 (0.00-0.20) K/uL Immature Gran # (Auto) 0.13 (0.01-0.20) K/uL Sodium 137 (136-145) mmol/L Potassium 3.8 (3.5-5.1) mmol/L Chloride 107 (98-107) mmol/L Carbon Dioxide 22 (21-32) mmol/L Anion Gap 8 (3-11) BUN 7 (6-23) mg/dl Creatinine 0.50 L (0.6-1.2) mg/dl Est Cr Clr Drug Dosing 169.7 ml/min Est GFR ( Amer) > 150.0 ml/min Est GFR (Non-Af Amer) 130.8 ml/min BUN/Creatinine Ratio 14.0 (10-20) Glucose 92 (70-99(Fasting)) mg/dl Calcium 8.7 (8.6-10.3) mg/dl Total Bilirubin 0.3 (0.2-1.0) mg/dl AST 12 L (13-39) U/L ALT 10 (7-52) U/L Alkaline Phosphatase 80 (34-104) U/L Total Protein 6.6 (6.0-8.3) gm/dl Albumin 3.4 (3.4-5.0) gm/dl Globulin 3.2 (2.5-4.0) gm/dl Albumin/Globulin Ratio 1.1 (0.9-2) Lipase 49 (11-82) U/L Urine Color Yellow Urine Appearance Clear (Clear) Urine pH 6.5 (4.5-7.5) Ur Specific [place] 1.012 (1.000-1.030) Urine Protein Negative (Negative) Urine Glucose (UA) Negative (Negative) Urine Ketones Negative (Negative) Urine Blood Trace H (Negative) Urine Nitrite Negative (Negative) Urine Bilirubin Negative (Negative) Urine Urobilinogen Negative (Negative) Ur Leukocyte Esterase 1+ H (Negative) Urine WBC (Auto) 5-10 H (0-5) /hpf Urine RBC (Auto) 0-4 (0-4) /hpf U Hyaline Cast (Auto) 1-5 (0-5) /lpf U Epithel Cells (Auto) >30 H (0-5) /lpf Urine Bacteria (Auto) Negative (Negative) Urine Test Positive (Negative) Blood Type O Positive Antibody Screen NEGATIVE Administered Medications Lactated Ringer's (Lr) 1,000 mls @ 125 mls/hr IV .Q8H HAM Stop: 09/25/23 20:59 Last Admin: 09/25/23 15:00 Dose: 125 mls/hr Documented By: XANDER Discontinued Medications Hydromorphone HCl (Hydromorphone Inj 1 Mg/Ml Syringe) 1 mg IV NOW STA Stop: 09/25/23 09:59 Last Admin: 09/25/23 10:07 Dose: 1 mg Documented By: NEAL Hydromorphone HCl (Hydromorphone Inj 0.5 Mg/0.5 Ml Syr) 0.5 mg IV NOW STA Stop: 09/25/23 11:00 Last Admin: 09/25/23 11:13 Dose: 0.5 mg Documented By: QGV Hydromorphone HCl (Hydromorphone Inj 0.5 Mg/0.5 Ml Syr) 0.25 mg IV NOW STA Stop: 09/25/23 14:23 Last Admin: 09/25/23 14:26 Dose: 0.25 mg Documented By: BALTAZAR Sodium Chloride (Nss) 1,000 mls @ 999 mls/hr IV .Q1H1M STA Stop: 09/25/23 09:57 Last Infusion: 09/25/23 11:03 Dose: Infused Documented By: Admin: 09/25/23 09:09 Dose: 999 mls/hr Documented By: NEAL Acetaminophen (Ofirmev) 1,000 mg in 100 mls @ 400 mls/hr IV NOW STA Stop: 09/25/23 10:12 Last Infusion: 09/25/23 11:03 Dose: Infused Documented By: Admin: 09/25/23 10:07 Dose: 400 mls/hr Documented By: NEAL Sodium Chloride (Nss) 500 mls @ 999 mls/hr IV .Q31M ONE Stop: 09/25/23 10:29 Last Infusion: 09/25/23 11:27 Dose: Infused Documented By: Admin: 09/25/23 10:55 Dose: 999 mls/hr Documented By: NEAL Morphine Sulfate (Morphine Sulfate 4 Mg/Ml 1 Ml Carp\Vial) 4 mg IV NOW STA Stop: 09/25/23 08:58 Last Admin: 09/25/23 09:08 Dose: 4 mg Documented By: NEAL Ondansetron HCl (Ondansetron Inj 2 Mg/Ml 2 Ml Vial) 4 mg IV NOW STA Stop: 09/25/23 08:58 Last Admin: 09/25/23 09:08 Dose: 4 mg Documented By: NEAL Ondansetron HCl (Ondansetron Inj 2 Mg/Ml 2 Ml Vial) 4 mg IV NOW STA Stop: 09/25/23 11:00 Last Admin: 09/25/23 11:13 Dose: 4 mg Documented By: QGV Imaging Data Radiologist's Impression: Abdomen/Pelvis CT 09/25/23 08:[address] WITHOUT CONTRAST CT DOSE: 1360.4 mGy.cm HISTORY: Acute left-sided flank pain with stones, L flank pain, 29 weeks TECHNIQUE: Multiaxial CT images of the abdomen and pelvis were performed without contrast. A dose lowering technique was utilized adhering to the principles of ALARA. COMPARISON STUDY: Renal ultrasound 09/06/2023, CT 08/20/2023 FINDINGS: Clear lung bases. No free air. The unenhanced spleen, pancreas and adrenal glands are unremarkable. Mildly distended gallbladder. The liver is unremarkable. Three nonobstructing calculi of the right kidney measure up to 4 mm. Eight nonobstructing calculi of the left kidney measure up to 4-5 mm. Previously noted distal left ureteral calculus is no longer present. Two left-sided pelvic venous calcifications are again seen. Decompressed urinary bladder with mild wall thickening. There is an intrauterine fetus within cephalic positioning. Anterior placenta. Aorta and IVC are unremarkable. Borderline enlarged inguinal chain lymph nodes are likely reactive. No bowel obstruction or bowel wall thickening. Moderate colonic fecal retention. Noninflamed appendix. Unremarkable soft tissues. No acute fracture. IMPRESSION: 1. Nonobstructing bilateral nephrolithiasis. No ureteral calculi or hydronephrosis. 2. Intrauterine gestation in cephalic positioning. 3. No bowel obstruction or bowel wall thickening. 4. Normal appendix. ACT 112: Negative or not required by law. The above report was generated using voice recognition software. It may contain grammatical, syntax or spelling errors. Electronically signed by: Dallas Mcdonald M.D. 09/25/2023 9:50 AM Discharge Plan Visit Data Chief Complaint: Flank Pain Stated Complaint: left flank pain ED Provider: Blair Cortez Discharge Problem: Renal colic on left side, Nausea & vomiting, Acute flank pain, Forms Stand Alone Forms: My [facility] Prescriptions Prescriptions: No Action trazodone 50 mg tablet 50 mg PO HS ondansetron HCl 8 mg tablet 8 mg PO Q8H PRN (Reason: NAUSEA/VOMITING) pyridoxine (vitamin B6) [Vitamin B-6] 100 mg Tablet 100 mg PO DAILY Rx Instructions: PT UNSURE OF STRENGTH metoprolol succinate 25 mg tablet extended release 24 hr 12.5 mg PO QAM iron 18 mg Tablet 18 mg PO BID Rx Instructions: PT UNSURE OF STRENGTH bupropion HCl 300 mg tablet extended release 24 hr 300 mg PO QAM Gummies 400 mcg-35 mg- 25 mg-5 mg Tablet,Chewable 1 tab PO DAILY famotidine 20 mg tablet 20 mg PO QAM PRN (Reason: acid reflux ) docusate sodium 100 mg capsule 100 mg PO BID PRN (Reason: Constipation) polyethylene glycol 3350 [Miralax] 17 gram powder in packet 17 g PO BID PRN (Reason: Constipation) Referrals Referrals: Luisa Roldan MD [Primary Care Provider] - Discharge Problem: Nausea & vomiting Qualifiers: Vomiting type: unspecified Qualified Code(s): R11.2 - Nausea with vomiting, unspecified Qualifiers: Weeks of gestation: 29 weeks Qualified Code(s): Z3A.29 - 29 weeks gestation of
[2023-09-25] MEDS ORDERED: SODIUM CHLORIDE 0.9% 1,000 ML IV STA (08:57)
[2023-09-25] MEDS ORDERED: ONDANSETRON INJ 2 MG/ML 2 ML VIAL IV STA ×2 (08:57→10:59)
[2023-09-25] MEDS ORDERED: MoRPHine SULFATE 4 MG/ML 1 ML CARP\\VIAL IV STA (08:57)
[2023-09-25 09:17] LABS: Basophils # (auto) 0.02 K/uL (0.00-0.20); Basophils % (auto) 0.2 %; Eosinophils # (auto) 0.14 K/uL (0.00-0.50); Eosinophils % (auto) 1.6 %; Hematocrit (blood only) 33.8 % (37.0-47.0); Hemoglobin 11.3 g/dl (12.0-16.0); Immature Granulocytes # (auto) 0.13 K/uL (0.01-0.20); Immature Granulocytes % (auto) 1.5 %; Lymphocytes # (auto) 1.46 K/uL (1.20-3.40); Lymphocytes % (auto) 16.7 %; Mean Corpuscular Hemoglobin 29.4 pg (25.0-34.0); Mean Corpuscular Hgb Conc 33.4 g/dL (32.0-36.0); Mean Corpuscular Volume 87.8 fL (80.0-100.0); Mean Platelet Volume 10.3 fL (9.4-12.4); Monocytes # (auto) 1.09 K/uL (0.11-0.59); Monocytes % (auto) 12.5 %; Neutrophils # (auto) 5.89 K/uL (1.40-6.50); Neutrophils % (auto) 67.5 %; Platelet Count 233 K/uL (130-400); RDW Coefficient of Variation 13.5 % (11.5-14.5); RDW Standard Deviation 42.8 fL (36.4-46.3); Red Blood Count 3.85 M/uL (4.20-5.40); White Blood Count 8.73 K/ul (4.8-10.8)
[2023-09-25 09:21] LABS: Appearance Urine Clear (Clear); Bacteria Urine Automated Negative (Negative); Bilirubin Urine Negative (Negative); Blood Urine Trace (Negative); Color Urine Yellow; Epithelial Cell Urine Auto >30 /lpf (0-5); Glucose Urine UA Negative (Negative); Ketones Urine Negative (Negative); Leukocyte Esterase Urine 1+ (Negative); Nitrite Urine Negative (Negative); Pregnancy Test, Urine Positive (Negative); Protein Urine Negative (Negative); RBC Urine Automated 0-4 /hpf (0-4); Specific Gravity Urine 1.012 (1.000-1.030); Urobilinogen Urine Negative (Negative); pH Urine 6.5 (4.5-7.5)
[2023-09-25 09:32] LABS: Alanine Aminotransferase 10 U/L (7-52); Albumin Globulin Ratio 1.1 (0.9-2); Albumin Level 3.4 gm/dl (3.4-5.0); Alkaline Phosphatase 80 U/L (34-104); Anion Gap 8 (3-11); Aspartate Aminotransferase 12 U/L (13-39); Bilirubin,Total 0.3 mg/dl (0.2-1.0); Blood Urea Nitrogen 7 mg/dl (6-23); Calcium 8.7 mg/dl (8.6-10.3); Carbon Dioxide 22 mmol/L (21-32); Chloride 107 mmol/L (98-107); Creatinine Clr Calc Pharmacy 169.7 ml/min; Est GFR (African American) > 150.0 ml/min; Est GFR (Non-African American) 130.8 ml/min; Globulin 3.2 gm/dl (2.5-4.0); Glucose 92 mg/dl (70-99(Fasting)); Lipase 49 U/L (11-82); Potassium 3.8 mmol/L (3.5-5.1); Sodium 137 mmol/L (136-145); Total Protein 6.6 gm/dl (6.0-8.3)
--- NOTE | 2023-09-25 09:52 | CT Scan Report ---
ABDOMEN AND PELVIS CT WITHOUT CONTRAST CT DOSE: 1360.4 mGy.cm HISTORY: Acute left-sided flank pain with stones, L flank pain, 29 weeks TECHNIQUE: Multiaxial CT images of the abdomen and pelvis were performed without contrast. A dose lo wering technique was utilized adhering to the principles of ALARA. COMPARISON STUDY: Renal ultrasound 09/06/2023, CT 08/20/2023 FINDINGS: Clear lung bases. No free air. The unenhanced spleen, pancreas and adrenal glands are unrem arkable. Mildly distended gallbladder. The liver is unremarkable. Three nonobstructing calculi of the right kidney measure up to 4 mm. Eight nonobstructing calculi of the left kidney measure up to 4-5 mm. Previously noted distal left ureteral calculus is no longer pre sent. Two left-sided pelvic venous calcifications are again seen. Decompressed urinary bladder with m ild wall thickening. There is an intrauterine fetus within cephalic positioning. Anterior placenta. A remberto and IVC are unremarkable. Borderline enlarged inguinal chain lymph nodes are likely reactive. No bowel obstruction or bowel wall thickening. Moderate colonic fecal retention. Noninflamed appendix. Unremarkable soft tissues. No acute fracture. IMPRESSION: 1. Nonobstructing bilateral nephrolithiasis. No ureteral calculi or hydronephrosis. 2. Intrauterine gestation in cephalic positioning. 3. No bowel obstruction or bowel wall thickening. 4. Normal appendix. ACT 112: Negative or not required by law. The above report was generated using voice recognition software. It may contain grammatical, syntax o r spelling errors. Electronically signed by: Dallas Mcdonald M.D. 09/25/2023 9:50 AM
[2023-09-25] MEDS ORDERED: ACETAMINOPHEN 1,000 MG/100 ML VIAL IV STA (09:58)
[2023-09-25] MEDS ORDERED: HYDROmorphone INJ 1 MG/ML SYRINGE IV STA (09:58)
[2023-09-25] MEDS ORDERED: SODIUM CHLORIDE 0.9% 500 ML IV ONE (09:59)
--- OUTSIDE RECORDS SUMMARY | 2023-09-25 10:37 | External Medical Summary | Summary of Care ---
Author Name Unknown Organization [facility] Address [address] [place] [address] Phone [phone] Care Team Providers Care Manager Intelligence Name Role Phone Unavailable Primary Care Provider Unavailabl e Reason for Visit * Reason Comments Return Visit Encounter Details Date Type Department Care Team (Late st Contact Info) Description 09/19/2023 9:30 AM EST Office Visit Gynecology/Obstetric [facility] [address] [place] [address] Jordon aMrquis MD [address] [place] [address] Encounter for supervision of other normal , unspecified trimester*; Hx of preeclampsia, prior , currently ; Adjustment disorder with anxiety; Tachycardia; Other chronic back pain; History of hyperthyroidism; Pain of right lower extremity; Pain of right upper extremity Allergies No known active allergiesdocumented as of this encounter (statuses as of 09/19/2023) Medications Medication Sig Dispensed Refills Start Date End Date Status 28-0.8 MG Oral Tablet Take by mouth. 0 Active buPROPion HCl ER (XL) 150 MG Oral Tablet Extended Release 24 Hour Take 2 Tablets by mouth in the morning. 30 Tablet 6 05/03/2023 Active traZODone HCl 50 MG Oral Tablet (Desyrel) Take 1 Tablet by mouth at bedtime. 0 05/03/2023 Active Aspirin 81 MG Oral Tablet Delayed Release Take 1 Tablet by mouth in the morning. 0 Active Ondansetron HCl 8 MG Oral Tablet Take 1 Tablet by mouth every 8 hours as needed for Nausea. 30 Tablet 1 07/04/2023 Active Iron 240 (27 Fe) MG Oral Tablet Take by mouth. 0 Active Metoprolol Succinate ER 25 MG Oral Tablet Extended Release 24 Hour (toPROL XL) Take 1 Tablet by mouth in the morning. 30 Tablet 5 08/09/2023 Active Additional Information Patient taking differently:25 mg Oral Daily(AM),Taking 1/2 tab daily, Reported on 09/19/2023 documented as of this encounter (statuses as of 09/19/2023) Active Problems Problem Noted Date Diagnosed Date History of hyperthyroidism 07/05/2023 Overview: No meds. Check TSH 3rd trimester. TSH Results: Lab Results Component Value Date/Time TSH - [facility] 2.29 07/04/2023 09:16 AM TSH - [facility] 1.56 11/06/2019 11:09 AM TSH - [facility] 0.49 03/27/2018 01:21 PM TSH - [facility] 1.22 05/22/2017 11:26 AM Encounter for supervision of other normal , unspecified trimester 05/03/2023 Hx of preeclampsia, prior , currently p regnant 05/03/2023 Overview: Dx at 38w, IOL at that time Adjustment disorder with anxiety 05/03/2023 Overview: Following with psych. Prior to , was taking wellbutrin, trazodone, and Klonopin. Stopped all with knowledge of . Planning to restart wellbutrin, and take trazodone only prn sleep. Tachycardia 05/03/2023 Overview: Had been taking propranolol, stopped with knowledge of and has not had many issues with elevated heart rate. S/p Cardiology referral. Started on Metoprolol 25 mg daily. Chronic back pain 05/03/2023 Overview: Stopped lyrica and baclofen with KOP. Planning just pet caregiver and tylenol prn Thyroiditis 02/03/2015 Hyperthyroidism 01/25/2015 Estimated Date of Delivery Comme nts Yes 12/10/2023 Based on last me nstrual period of 03/05/2023 documented as of this encounter (statuses as of 09/19/2023) Resolved Problems Problem Noted Date Diagnosed Date Resolved Date Acute vaginitis 05/09/2016 01/17/2018 Vitamin D deficiency 03/10/2016 018 Polyhydramnios, antepartum complication 09/29/2014 10/23/2014 Overview: 09/24/14, POP = 27.6. [place] [facility] [place] Attending (Dr. Sorensen) aware. INFORMATION 09/21/2014 10/23/2014 Overview: Scan on 09/17/14; POP; 24.9 , normal first 03/03/201406/2015 Overview: Failed 50 gm glucola. Passed 3 hr GTT. Baby: "Vitor". GBS negative. Asthma, mild persistent 07/25/201201/13 COSTOCHONDRITIS 01/25/2010 03/03/2014 Acute URI 01/25/2010 03/03/2014 Cough 01/25/2010 03/03/2014 Fever 01/25/2010 03/03/2014 Routine medical exam 01/25/2010 018 documented as of this encounter (statuses as of 09/19/2023) Immunizations Name Administration Dates Next Due DTP Vaccine 1994,1994,1994 DTaP Dipth/Tet/Acell Pertussis (Infanrix), Peds 03/22/1999,12/19/1995 HIB PRP-OMP, 3 dose (Pedvax) 05/09/1995, 1994,1994,1993 HPV Vaccine, 9-Valent 08/13/2019 10/13/2019 Hepatitis B, 0-19 yrs 05/09/1995,1994,06/16 MMR - Measles/Mumps/Rubella Vaccine 03/22/1999,0 05/09/1995 OPV - Polio Virus Vaccine (Oral) 996,1994,1994,1993 SEASONAL INFLUENZA, PF, 6 M & Above, IM , (FLULAVAL or FLUZONE) 08/06/2019,07/29/2018 Seasonal Influenza, QUAD, wi th Preserv, 6 mons & Above, 0.5 mL, IM 07/04/2017 Seasonal Influenza, Split, I IV3, With Preserve, Inj 07/15/2015 TB Mery Test 12/19/1995 TDAP (age 10 and older)(Boostrix) 09/19/2023, documented as of this encounter Social History Tobacco Use Types Packs/Day Years Used Date Smoking Tobacco: Former Cigarettes Q uit: 02/11/2014 Smokeless Tobacco: Never Alcohol Use Standard Drinks/Week Comments Not Currently 0 (1 standard drink = 0.6 oz pur e alcohol) occ PHQ-2 Answer Date Recorded PHQ-2 Score 0 08/13/2019 Hunger Vital Sign Answer Date Recorded Within the past 12 months, y ou worried that your food would run out before you got the money to buy more. Never true 04/30/20 23 Within the past 12 months, t he food you bought just didn't last and you didn't have money to get more. Never true 04/30/2023 [place] Depression Scale Answer Date Recorded [place] Depression Scale Total 6 09/05/2023 The thought of harming myself has occurred to me . Never 09/05/2023 Estimated Date of Delivery Comme nts Yes 12/10/2023 Based on last me nstrual period of 03/05/2023 Sex and Gender Information Value Date Recorded Sex Assigned at Female 11/06/2019 10:31 AM EST Gender Identity Female 11/06/2019 10:31 AM EST Sexual Orientation Straight 11/06/2019 10 :31 AM EST Job Start Date Occupation Industry Not on file Not on file Not on file documented as of this encounter Progress Notes * Jordon Marquis MD - 09/19/2023 9:21 AM EST 1st time seeing pt in Pt was admitted at [place] for kidney stones. S/P lithotripsy Has rt arm pain and swelling- RT dopplers ordered documented in this encounter Nursing Notes * Sujey Bronson LPN - 09/19/2023 9:12 AM EST Pt is currently 28w2d with an Estimated Date of Delivery: 12/10/23 - Doing 1 hour glucose. Would like Tdap today. TSH ordered. Pt with RUE redness and swelling, very tender, no warmth. Passing kidney stones. documented in this encounter Plan of Treatment Upcoming Encounters Date Type Department Care Team (Late st Contact Info) Description 10/04/2023 10:15 AM EST Office Visit Gynecology/Obstetrics [facility] [address] [facility] [place] [address] Natalya Kumar CRNP [address] [place] [address] 11/09/2023 8:30 AM EST Office Visit Cardiology, [facility] [address] [place] [address] Audra Noriega PA-C [address] [place] [address] Scheduled Orders Name Type Priority Associated Diagnoses Orde r Schedule VASC DUPLEX VENOUS UE UNILAT Medical Imaging Routine Pain of right lower extremity Expected: 09/19/2023, Expires: 10/20/2024 Health Maintenance Due Date Last Done Comments COVID-19 Vaccine (#1) 1994 GARDASIL-HPV IMMUNIZATION SERIES (3 - 3-dose series) 11/05/2019 08/13/2019, 08/04/2015 (Declined) Depression Screening 08/13/2020 08/13/2019 Influenza Vaccine (FLU shot) (#1) 2023 08/06/2019, 07/29/2018, 07/04/2017, Additional history exists Pap Smear 05/03/2026 05/03/2023, 01/13, 08/04/2015, Additional history exists DTaP,Tdap,and Td Vaccines (8 - Td or Tdap) 09/19/2033 09/19/2023, 09/12/2012, 03/22/1999, Additional history exists Hepatitis B Completed 05/09/1995, 08/16, 1994 MENINGOCOCCAL (MENACTRA/MENVEO) Aged Out No longer eligible based on patient's age to complete this topic Pneumococcal Vaccine: Pediatrics (0 to 5 Years) and At-Risk Patients (6 to 64 Years) Aged Out No longer eligible based on patient's age to complete this topic documented as of this encounter Medical Devices Not on filedocumented as of this encounter Results * VASC DUPLEX VENOUS UE UNILAT (09/19/2023 12:11 PM EST) Anatomical Region Laterality Modality Upper Extremity, Vascular Ultras ound Narrative 09/19/2023 1:08 PM EST VASCULAR LAB RESULTS DATE OF EXAMINATION: 09/19/23 INDICATION: Pain in right arm This is an interpretation of an exam performed at [facility]. PHYSICIAN REPORT: UPPER EXTREMITY VENOUS DUPLEX EXAMINATION Immediately before proceeding with the vascular lab procedure reported below, the identity of the patient, the correct exam and the correct procedural site were identified. Color flow Doppler, spectral analysis, and transducer compression techniques were applied during this ultrasound image examination. RIGHT UPPER EXTREMITY Duplex examination includes visualization of the right internal jugular vein, innominate vein, subclavian vein and axillary vein. The veins are free of internal echoes with normal diameter changes in response to respiratory cycles demonstrated. Doppler signals demonstrate spontaneous cyclic flow dynamics. The brachial veins demonstrate normal compressibility. The basilic and cephalic veins are compressible without internal echoes. Right branch of the basilic vein, at the are of concern, is non-compressible and echogenic. The contralateral subclavian vein is patent and demonstrates respirophasic flow. CONCLUSIONS: Right upper extremity venous duplex examination with no evidence of acute deep venous thrombosis in this extremity. Superficial thrombophlebitis of the right upper extremity noted in a branch of the basilic vein. Preliminary report was given to Sujey Bronson LPN on 09/19/2023 at 10:53 am . Jordon Marquis MD RAD VASCULAR documented in this encounter Visit Diagnoses Diagnosis Encounter for supervision of other normal , unspecified trimester- Primary Hx of preeclampsia, prior , currently with other poor obstetric history Adjustment disorder with anxiety Tachycardia Tachycardia, unspecified Other chronic back pain History of hyperthyroidism Personal history of other endocrine, metabolic, and immunity disorders Pain of right lower extremity Pain of right upper extremity Pain of right lower extremity Pain of right upper extremity documented in this encounter Advance Directives Latest Code Status on File Code Status Date Activated Date Inactivated Comments Full Code 09/28/2014 10:55 PM 09/30/2014 6:26 PM Th is order reflects the patients wishes and were consensually agreed upon.
--- OUTSIDE RECORDS SUMMARY | 2023-09-25 10:37 | External Medical Summary ---
Author Name Unknown Address Unknown Organization [id number][place] [facility] [place] [address] [place] [address] Laboratory Report Ordering Provider Test Date Status SUKHI BALDERAS 09/19/2023 09:47:48 Final Observation Date Value Abnormality Reference (Units ) Status Vitamin B12 09/19/2023 09:47:48 [phone] (pg/mL) Final Performing Location [facility] - [address] [address]
--- OUTSIDE RECORDS SUMMARY | 2023-09-25 10:37 | External Medical Summary ---
Author Name Unknown Address Unknown Organization [id number]:LAB[facility]ATORY [facility] - [address] [facility] [address] Laboratory Report Ordering Provider Test Date Status SUKHI BALDERAS 09/19/2023 09:47:48 Final Observation Date Value Abnormality Reference (Units ) Status TSH 09/19/2023 09:47:48 1.02 0.27-4.20 (uIU/mL) Final Performing Location [facility] - [address] [facility] [address]
--- OUTSIDE RECORDS SUMMARY | 2023-09-25 10:37 | External Medical Summary ---
Author Name Unknown Address Unknown Organization [id number]:LABORATORY [facility] - [address] [place] [address] Laboratory Report Ordering Provider Test Date Status SUKHI BALDERAS 09/19/2023 09:47:48 Final Observation Date Value Abnormality Reference (Units ) Status WBC, Total 09/19/2023 09:47:48 9.38 4.00-10.8 0 (K/uL) Final RBC 09/19/2023 09:47:48 3.95 3.85-5.15 (M/uL) Final Hemoglobin 09/19/2023 09:47:48 11.8 Below low normal 12 .0-15.3 (g/dL) Final Anemia reflex testing trigge rs on a HGB < 12.0 for Females and HGB < 13.0 for Males in accordance with the WHO Anemia Guidelines
Anemia reflex testing triggers on a HGB < 12.0 for Females and HGB < 13.0 for Males in accordance with the WHO Anemia Guidelines HCT 09/19/2023 09:47:48 38.0 36.0-45.2 (%) Final MCV 09/19/2023 09:47:48 96.2 81.5-97.5 (fL) Final MCH 09/19/2023 09:47:48 29.9 27.0-34.0 (pg) Final MCHC 09/19/2023 09:47:48 31.1 32.0-36.0 (g/dL) Final RDW 09/19/2023 09:47:48 13.2 11.5-15.5 (%) Final Platelets 09/19/2023 09:47:48 215 140-400 (K /uL) Final MPV 09/19/2023 09:47:48 10.9 6.6-11.1 ( fL) Final Nucleated erythrocytes/100 leukocytes [Ratio] in Blood by Automated count 09/19/2023 09:47:48 0 <=0 (/100 WBCs) Fi [facility] Performing Location [facility] - [address] [facility] [address]
--- OUTSIDE RECORDS SUMMARY | 2023-09-25 10:37 | External Medical Summary ---
Author Name Unknown Address Unknown Organization [id number][place] [place] [address] [facility] [address] Laboratory Report Ordering Provider Test Date Status SUKHI BALDERAS 09/19/2023 09:47:48 Final Observation Date Value Abnormality Reference (Units ) Status Treponema pallidum Ab [Presence] in Serum by Immunoassay 09/19/2023 09:47:48 Nonreactive Nonreactive Final No serologic evidence of syp hilis. No additional testing clinicially indicated at this time. Consider repeat testing in 2-4 weeks if acute or primary syphilis is suspected. Performing Location [facility] [place] [address] [place] [address]
--- OUTSIDE RECORDS SUMMARY | 2023-09-25 10:37 | External Medical Summary ---
Author Name Unknown Address Unknown Organization [id number]:LABORATORY [facility] - [address] [place] [address] Laboratory Report Ordering Provider Test Date Status SUKHI BALDERAS 09/19/2023 09:47:48 Final Observation Date Value Abnormality Reference (Units ) Status Folic Acid 09/19/2023 09:47:48 6.7 >4.5 (ng/ mL) Final Performing Location [facility] - [address] [place] [address]
--- OUTSIDE RECORDS SUMMARY | 2023-09-25 10:37 | External Medical Summary | Summary of Care ---
Author Name Unknown Organization [facility] Address [address] [place] [address] Phone [phone] Care Team Providers Care Eligibility Technician Name Role Phone Unavailable Primary Care Provider Unavailabl e Reason for Visit * Reason Comments Outpatient Testing Encounter Details Date Type Department Care Team (Late st Contact Info) Description 09/19/2023 9:00 AM EST Laboratory Laboratory, [facility] [address] [id number] [facility] [address] [place] [address] Arrived Allergies No known active allergiesdocumented as of [...] the morning. 30 Tablet 5 08/09/2023 Active documented as of this encounter (statuses as [...] lyrica and baclofen with KOP. Planning just acute care nurse practitioner and tylenol prn Thyroiditis 02/03/2015 Hyperthyroidism 01/25/2015 Estimated Date of Delivery Comme nts Yes 12/10/2023 Based on last me nstrual period of 03/05/2023 documented as of this encounter (statuses as of 09/19/2023) Resolved Problems Problem Noted Date Diagnosed Date Resolved Date Acute vaginitis 05/09/2016 01/17/2018 Vitamin D deficiency 03/10/2016 018 Polyhydramnios, antepartum complication 09/29/2014 10/23/2014 Overview: 09/24/14, POP = 27.6. Pt inpatient at [facility] [place]. Attending (Dr. Sorensen) aware. INFORMATION 09/21/2014 10/23/2014 Overview: Scan on 09/17/14; POP; 24.9 , normal first 03/03/[address] 06/2015 Overview: Failed 50 gm glucola. Passed 3 [...] Test 12/19/1995 TDAP (age 10 and older)(Boostrix) 09/12/2012 documented as of this encounter Social History [...] money to get more. Never true 04/30/2023 [place] Depression Scale Answer Date Recorded [place] Depression Scale Total 6 09/05/2023 The thought [...] on file documented as of this encounter Plan of Treatment Upcoming Encounters Date Type Department Care Team (Late st Contact Info) Description 09/19/2023 9:30 AM EST Office Visit Gynecology/Obstetrics [facility] [address] [place] [address] Jordon Marquis MD [address] [place] [address] Arrived 11/09/2023 8:30 AM EST Office Visit Cardiology, [facility] [address] [place] [address] Audra Noriega PA-C [address] [place] [address] [place] [address] Health Maintenance Due Date Last Done Comments COVID-19 Vaccine (#1) 1994 GARDASIL-HPV IMMUNIZATION SERIES (3 - 3-dose series) 11/05/2019 08/13/2019, 08/04/2015 (Declined) Depression Screening 08/13/2020 08/13/2019 DTaP,Tdap,and Td Vaccines (7 - Td or Tdap) 09/12/2022 09/12/2012, 03/22/1999, 12/19/1995, Additional history exists Influenza Vaccine (FLU shot) (#1) 2023 08/06/2019, 07/29/2018, 07/04/2017, Additional history exists Pap Smear 05/03/2026 05/03/2023, 01/13, 08/04/2015, Additional history exists Hepatitis B Completed 05/09/1995, [...] Not on filedocumented as of this encounter Advance Directives Latest Code Status on File Code Status Date Activated Date Inactivated Comments Full Code 09/28/2014 10:55 PM 09/30/2014 6:26 PM Th is order reflects the patients wishes and were consensually agreed upon.
--- OUTSIDE RECORDS SUMMARY | 2023-09-25 10:37 | External Medical Summary ---
Author Name Unknown Address Unknown Organization [id number][place] [facility] [place] [address] [facility] [address] Laboratory Report Ordering Provider Test Date Status SUKHI BALDERAS 09/19/2023 09:47:48 Final Observation Date Value Abnormality Reference (Units ) Status TSH 09/19/2023 09:47:48 1.00 0.27-4.20 (uIU/mL) Final Performing Location [facility]ORY [facility] - [address] [facility] [address]
--- OUTSIDE RECORDS SUMMARY | 2023-09-25 10:37 | External Medical Summary ---
Author Name Unknown Address Unknown Organization [id number]:LABORATORY [facility] - [address] [place] [address] Laboratory Report Ordering Provider Test Date Status SUKHI BALDERAS 09/19/2023 09:47:48 Final Observation Date Value Abnormality Reference (Units ) Status Iron 09/19/2023 09:47:48 50 33-151 (ug/dL) Final Iron-binding capacity 09/19/2023 09:47:48 516 Above high normal 250-425 (ug/dL) Final Transferrin Sat % 09/19/2023 09:47:48 10 Below low normal 15-55 (%) Final Performing Location LABORATORY [facility] - [address] [place] [address]
--- OUTSIDE RECORDS SUMMARY | 2023-09-25 10:37 | External Medical Summary ---
Author Name Unknown Address Unknown Organization [id number]:[place] [facility] [place] [address] [place] [address] Laboratory Report Ordering Provider Test Date Status SUKHI BALDERAS 09/19/2023 09:47:48 Final Observation Date Value Abnormality Reference (Units ) Status Retic, % (auto) 09/19/2023 09:47:48 1.87 0.80-1.90 (%) Final Reticulocytes, Absolute 09/19/2023 09:47:48 73.1 31.3-100.1 (K/uL) Final Reticulocyte fraction, immature 09/19/2023 09:47:48 25.1 Above high normal 2.5-20.6 (%) Final Reticulocyte HGB 09/19/2023 09:47:48 30.6 29.7-37.4 (pg) Final Performing Location [facility] [place] [address] [place] [address]
--- OUTSIDE RECORDS SUMMARY | 2023-09-25 10:37 | External Medical Summary ---
Author Name Unknown Address Unknown Organization [id number]:LABORATORY [facility] - [address] [place] [address] Laboratory Report Ordering Provider Test Date Status SUKHI BALDERAS 09/19/2023 09:47:48 Final Observation Date Value Abnormality Reference (Units ) Status Glucose [Moles/volume] in Serum or Plasma --1 hour post 50 g glucose PO 09/19/2023 09:47:48 120 70-129 (mg/dL) Final Performing Location LABORATORY [facility] - [address] [place] [address]
--- OUTSIDE RECORDS SUMMARY | 2023-09-25 10:37 | External Medical Summary | Summary of Care ---
Author Name Unknown Organization [facility] Address [address] [address] Phone [phone] Care Team Providers Care Seismograph Observer Name Role Phone Unavailable Primary Care Provider Unavailabl e Encounter Details Date Type Department Care Team (Late st Contact Info) Description 09/19/2023 Telephone Gynecology/Obstetrics [facility] [place] [address] [place] [address] Jordon Marquis MD [address] [place] [address] Allergies No known active allergiesdocumented as of [...] lyrica and baclofen with KOP. Planning just career specialist and tylenol prn Thyroiditis 02/03/2015 Hyperthyroidism 01/25/2015 Estimated Date of Delivery Comme nts Yes 12/10/2023 Based on last me nstrual period of 03/05/2023 documented as of this encounter (statuses as of 09/19/2023) Resolved Problems Problem Noted Date Diagnosed Date Resolved Date Acute vaginitis 05/09/2016 01/17/2018 Vitamin D deficiency 03/10/2016 018 Polyhydramnios, antepartum complication 09/29/2014 10/23/2014 Overview: 09/24/14, POP = 27.6. [place] [facility] [place]. Attending (Dr. Sorensen) aware. INFORMATION 09/21/2014 10/23/2014 Overview: Scan on 09/17/14; POP; 24.9 , normal first 03/03/2014/0 06/2015 Overview: Failed 50 gm glucola. Passed [...] money to get more. Never true 04/30/2023 [place] Depression Scale Answer Date Recorded [place] Depression Scale Total 6 09/05/2023 The thought [...] on file documented as of this encounter Miscellaneous Notes * Telephone Encounter - Brittany Malagon RN - 09/19/2023 10:59 AM EST Patient called back and made aware. She verbalized understanding. * Telephone Encounter - Sujey Bronson LPN - 09/19/2023 10:53 AM EST Prelim from vasc lab, neg for DVT. + Thrombophlebitis off branch by IV site. Per Dr. Marquis she doesnot need to do anything, already taking ASA 81 mgs. She can use warm compresses to help alleviate discomfort and just give it time to heal. left message for patient to call office documented in this encounter Plan of Treatment Upcoming Encounters Date Type Department Care Team (Late st Contact Info) Description 10/04/2023 10:15 AM EST Office Visit Gynecology/Obstetrics [facility] [address] [place] [address] Natalya Kumar CRNP [address] [place] [address] 11/09/2023 8:30 AM EST Office Visit Cardiology, [facility] [address] [place] [address] Audra Noriega PA-C [address] [place] [address] Health Maintenance Due Date Last Done Comments [...]
--- OUTSIDE RECORDS SUMMARY | 2023-09-25 10:37 | External Medical Summary | Summary of Care ---
Author Name Unknown Organization [facility] Address [address] [facility] [place] [address] Phone [phone] Care Team Providers Care Routeman Name Role Phone Unavailable Primary Care Provider Unavailabl e Reason for Visit * Reason Onset Date Comments Test Results 09/20/2023 Encounter Details Date Type Department Care Team (Late st Contact Info) Description 09/20/2023 Telephone Gynecology/Obstetrics Dayan Mendez [address] [place] [address] Chanel Paige PA-C [address] [place] [address] Test Results Allergies No known active allergiesdocumented as of this encounter (statuses as of 09/20/2023) Medications Medication Sig Dispensed Refills Start Date [...] as of this encounter (statuses as of 09/20/2023) Active Problems Problem Noted Date Diagnosed Date [...] lyrica and baclofen with KOP. Planning just long term care social worker and tylenol prn Thyroiditis 02/03/2015 Hyperthyroidism 01/25/2015 Estimated Date of Delivery Comme nts Yes 12/10/2023 Based on last me nstrual period of 03/05/2023 documented as of this encounter (statuses as of 09/20/2023) Resolved Problems Problem Noted Date Diagnosed Date Resolved Date Acute vaginitis 05/09/2016 01/17/2018 Vitamin D deficiency 03/10/2016 018 Polyhydramnios, antepartum complication 09/29/2014 10/23/2014 Overview: 09/24/14, POP = 27.6. [place] inpatient [place] [facility] [place] Attending (Dr. Sorensen) aware. INFORMATION 09/21/2014 10/23/2014 Overview: Scan on 09/17/14; POP; 24.9 , normal first 03/03/201406/2015 Overview: Failed 50 gm glucola. Passed 3 hr GTT. Baby: "Vitor". GBS negative. Asthma, mild persistent 07/25/201201/13 COSTOCHONDRITIS 01/25/2010 03/03/2014 Acute URI 01/25/2010 03/03/2014 Cough 01/25/2010 03/03/2014 Fever 01/25/2010 03/03/2014 Routine medical exam 01/25/2010 018 documented as of this encounter (statuses as of 09/20/2023) Immunizations Name Administration Dates Next Due DTP [...] money to get more. Never true 04/30/2023 [place] Depression Scale Answer Date Recorded [place] Depression Scale Total 6 09/05/2023 The thought [...] encounter Miscellaneous Notes * Telephone Encounter - Sujey Bronson LPN - 09/20/2023 1:38 PM EST Patient notified. * Telephone Encounter - Chanel Paige PA-C - 09/20/2023 12:24 PM EST Her labs showed she is slighly anemic with hemoglobin 11.8. Her medication list states she is on iron pill daily? Is this correct? If yes, she should continue it once daily. If not taking, would recommend she start once daily oraliron pill Ferrous Sulfate 325, can crab picker OTC. documented in this encounter Plan of Treatment Upcoming Encounters Date Type Department Care Team (Late st Contact Info) Description 10/04/2023 10:15 AM EST Office Visit Gynecology/Obstetrics [facility] [address] [place] [address] Natalya Kumar CRNP [address] [place] [address] 11/09/2023 8:30 AM EST Office Visit Cardiology, [facility] [address] [place] [address] Audra Noriega PA-C [address] [facility] [place] [address] Health Maintenance Due Date Last Done Comments [...]
--- OUTSIDE RECORDS SUMMARY | 2023-09-25 10:37 | External Medical Summary | Summary of Care ---
Author Name Unknown Organization [facility] Address [address] [place] [address] Phone [phone] Care Team Providers Care Tip Banding Machine Operator Name Role Phone Unavailable Primary Care Provider Unavailabl e Reason for Visit * Reason Comments Outpatient Testing Encounter Details Date Type Department Care Team (Latest Contact Info) Description 09/19/2023 9:00 AM EST Laboratory Laboratory, [facility] [address] [place] [address] [facility] [address] [place] [address] Encounter for supervision of other normal , unspecified trimester; History of hyperthyroidism Allergies No known active allergiesdocumented as of [...] lyrica and baclofen with KOP. Planning just rn coronary care unit and tylenol prn Thyroiditis 02/03/2015 Hyperthyroidism 01/25/2015 Estimated Date of Delivery Comme nts Yes 12/10/2023 Based on last me nstrual period of 03/05/2023 documented as of this encounter (statuses as of 09/19/2023) Resolved Problems Problem Noted Date Diagnosed Date Resolved Date Acute vaginitis 05/09/2016 01/17/2018 Vitamin D deficiency 03/10/2016 018 Polyhydramnios, antepartum complication 09/29/2014 10/23/2014 Overview: 09/24/14, POP = 27.6. Pt inpatient at [facility] currently. Attending (Dr. Sorensen) aware. INFORMATION 09/21/2014 [...] money to get more. Never true 04/30/2023 [place] Depression Scale Answer Date Recorded [place] Depression Scale Total 6 09/05/2023 The thought [...] Team (Late st Contact Info) Description 09/19/2023 10:00 AM EST Imaging Vascular Lab, [facility] 2nd Floor, [place] [address] [facility] [place] [address] 11/09/2023 8:30 AM EST Office Visit Cardiology, [facility] [address] [facility] [place] [address] Audra Noriega PA-C [address] [place] [address] [place] [phone] Pending Results Name Type Priority Associated Diagnoses Date /Time CBC WITH WBC DIFFERENTIAL AND ANEMIA REFLEX WORKUP Lab Routine Encounter for supervision of other normal , unspecified trimester 09/19/2023 9:47 AM EST SYPHILIS ANTIBODY SCREEN WITH REFLEX TO RPR Lab Routine Encounter for supervision of other normal , unspecified trimester 09/19/2023 9:47 AM EST 50-G GESTATIONAL GLUCOSE, 1 HOUR Lab Routine Encounter for supervision of other normal , unspecified trimester 09/19/2023 9:47 AM EST TSH WITH FREE T4 IF INDICATED Lab Routine History of hyperthyroidism 09/19/2023 9:47 AM EST ANEMIA CBC Lab Routine Encounter for supervision of other normal , unspecified trimester 09/19/2023 9:47 AM EST DIFFERENTIAL, AUTOMATED Lab Routine Encounter for supervision of other normal , unspecified trimester 09/19/2023 9:47 AM EST ANEMIA REFLEX CHEMISTRY HOLD Lab Routine Encounter for supervision of other normal , unspecified trimester 09/19/2023 9:47 AM EST SYPHILIS ANTIBODY SCREEN Lab Routine Encounter for supervision of other normal , unspecified trimester 09/19/2023 9:47 AM EST Health Maintenance Due Date Last Done Comments [...] Not on filedocumented as of this encounter Visit Diagnoses Diagnosis Encounter for supervision of other normal , unspecified trimester History of hyperthyroidism Personal history of other endocrine, metabolic, and immunity disorders documented in this encounter Advance Directives Latest Code Status on File Code Status Date Activated Date Inactivated Comments Full Code 09/28/2014 10:55 PM 09/30/2014 6:26 PM Th is order reflects the patients wishes and were consensually agreed upon.
--- OUTSIDE RECORDS SUMMARY | 2023-09-25 10:37 | External Medical Summary ---
Author Name Unknown Address Unknown Organization K01:[facility] [address] [place] [address] Laboratory Report Ordering Provider Test Date Status SUKHI BALDERAS 09/19/2023 09:47:48 Final Observation Date Value Abnormality Reference (Units ) Status Ferritin 09/19/2023 09:47:48 11 Below low normal 13- 150 (ng/mL) Final Performing Location [facility] - [address] [place] [address]
--- OUTSIDE RECORDS SUMMARY | 2023-09-25 10:37 | External Medical Summary ---
Author Name Unknown Address Unknown Organization K01:[facility] - [address] [facility] [place] [address] Laboratory Report Ordering Provider Test Date Status SUKHI BALDERAS 09/19/2023 09:47:48 Final Observation Date Value Abnormality Reference (Units ) Status SYNC LEUKOCYTES IN BLOOD BY AUTOMATED COUNT 09/19/2023 09:47:48 9.38 4.00-10.80 (K/uL) Final Segs 09/19/2023 09:47:48 75.5 Above high normal 40.0-75.0 (%) Final Lymphs % 09/19/2023 09:47:48 15.5 Below low normal 18.0-42.0 (%) Final Monos 09/19/2023 09:47:48 7.4 1.0-11.0 (%) Final Eosinophils 09/19/2023 09:47:48 0.5 0.0-6.0 (%) Final Basos 09/19/2023 09:47:48 0.2 0.0-2.0 (%) Final Immature Granulocyte, Percent 09/19/2023 09:47:48 0.9 0.0-2.0 (%) Final Absolute Segs 09/19/2023 09:47:48 7.09 1.80-7.70 (K/uL) Final Lymphs, absolute 09/19/2023 09:47:48 1.45 1.00-4.80 (K/ul) Final Monos, Abs 09/19/2023 09:47:48 0.69 0.00-1.10 (K/uL) Final Eos, Abs 09/19/2023 09:47:48 0.05 0.00-0.70 (K/uL) Final Basos, Abs 09/19/2023 09:47:48 0.02 0.00-0.20 (K/uL) Final Immature Granulocytes, Number 09/19/2023 09:47:48 0.08 0.00-0.20 (K/uL) Final Performing Location [facility] - [address] [facility] [id number]
--- OUTSIDE RECORDS SUMMARY | 2023-09-25 10:37 | External Medical Summary ---
Author Name Unknown Address Unknown Organization K01:[facility] [place] [facility] [address] [place] [address] Laboratory Report Ordering Provider Test Date Status SUKHI BALDERAS 09/19/2023 09:47:48 Final Observation Date Value Abnormality Reference (Units ) Status Creatinine 09/19/2023 09:47:48 0.5 0.5-1.0 (mg/dL) Final Glomerular filtration rate/1.73 sq M.predicted [Volume Rate/Area] in Serum, Plasma or Blood by Creatinine-based formula (CKD-EPI) 09/19/2023 09:47:48 >90 >=60 (mL/min) Final eGFR is calculated based on the CKD-EPI 2020 equation Performing Location LABORATORY [facility] [place] - [facility] [address] [place] [address]
--- OUTSIDE RECORDS SUMMARY | 2023-09-25 10:38 | External Medical Summary | Summary of Care ---
Author Name Unknown Organization [facility] Address [address] [facility] [place] [address] Phone [phone] Care Team Providers Care Commercial Counsel Name Role Phone Unavailable Primary Care Provider Unavailabl e Encounter Details Date Type Department Care Team (Late st Contact Info) Description 09/04/2023 Telephone Gynecology/Obstetrics Dayan Mendez [address] [place] [address] Jordon Marquis MD [address] [place] [address] Allergies No known active allergiesdocumented as of this encounter (statuses as of 09/13/2023) Medications Medication Sig Dispensed Refills Start Date [...] as of this encounter (statuses as of 09/13/2023) Active Problems Problem Noted Date Diagnosed Date [...] lyrica and baclofen with KOP. Planning just property caretaker and tylenol prn Thyroiditis 02/03/2015 Hyperthyroidism 01/25/2015 Estimated Date of Delivery Comme nts Yes 12/10/2023 Based on last me nstrual period of 03/05/2023 documented as of this encounter (statuses as of 09/13/2023) Resolved Problems Problem Noted Date Diagnosed Date Resolved Date Acute vaginitis 05/09/2016 01/17/2018 Vitamin D deficiency 03/10/2016 018 Polyhydramnios, antepartum complication 09/29/2014 10/23/2014 Overview: 09/24/14, POP = 27.6. Pt inpatient at [facility] [place]. Attending (Dr. Sorensen) aware. INFORMATION 09/21/2014 10/23/2014 Overview: Scan on 09/17/14; POP; 24.9 , normal first 03/03/201406/2015 Overview: Failed 50 gm glucola. Passed 3 hr GTT. Baby: "Vitor". GBS negative. Asthma, mild persistent 07/25/201201/13 COSTOCHONDRITIS 01/25/2010 03/03/2014 Acute URI 01/25/2010 03/03/2014 Cough 01/25/2010 03/03/2014 Fever 01/25/2010 03/03/2014 Routine medical exam 01/25/2010 018 documented as of this encounter (statuses as of 09/13/2023) Immunizations Name Administration Dates Next Due DTP [...] money to get more. Never true 04/30/2023 [place] Depression Scale Answer Date Recorded [place] Depression Scale Total 6 09/05/2023 The thought [...] Telephone Encounter - Sujey Bronson LPN - 09/04/2023 9:09 AM EST left message for patient to call office. Patient missed her last appointment and [facility]. documented in this encounter Plan of Treatment Upcoming Encounters Date Type Department Care Team (Late st Contact Info) Description 09/19/2023 9:00 AM EST [facility] [address] [place] [phone] Yuki Mendez [address] [place] [address] 09/19/2023 9:30 AM EST Office Visit Gynecology/[place]stetric[place] [address] Jordon Marquis MD [address] [place] [address] 11/09/2023 8:30 AM EST Office Visit Cardiology, [facility] [address] [place] [address] Audra Noriega PA-C [address] [place] [address] Health Maintenance Due Date Last Done Comments [...]
--- OUTSIDE RECORDS SUMMARY | 2023-09-25 10:38 | External Medical Summary | Summary of Care ---
Author Name Unknown Organization [facility] Address [address] [place] [address] Phone [phone] Care Team Providers Care Rigger Supervisor Name Role Phone Unavailable Primary Care Provider Unavailabl e Reason for Visit * Reason Comments Return Visit Encounter Details Date Type Department Care Team (Latest Contact Info) Description 09/13/2023 10:45 AM EST Office Visit Gynecology/Obstetri siena Dayan Mendez [address] [place] [address] Natalya Kuamr CRNP [address] [place] [address] Absence of movement*; Encounter for supervision of other normal , unspecified trimester; Hx of preeclampsia, prior , currently ; Adjustment disorder with anxiety; Tachycardia; History of hyperthyroidism Allergies No known active [...] lyrica and baclofen with KOP. Planning just manager progressive care and tylenol prn Thyroiditis 02/03/2015 Hyperthyroidism 01/25/2015 Estimated Date of Delivery Comme nts Yes 12/10/2023 Based on last me nstrual period of 03/05/2023 documented as of this encounter (statuses as of 09/13/2023) Resolved Problems Problem Noted Date Diagnosed Date Resolved Date Acute vaginitis 05/09/2016 01/17/2018 Vitamin D deficiency 03/10/2016 018 Polyhydramnios, antepartum complication 09/29/2014 10/23/2014 Overview: 09/24/14, POP = 27.6. Pt inpatient at [facility] currently. Attending (Dr. Sorensen) aware. INFORMATION 09/21/2014 [...] money to get more. Never true 04/30/2023 [place] Depression Scale Answer Date Recorded [place] Depression Scale Total 6 09/05/2023 The thought [...] on file documented as of this encounter Last Filed Vital Signs Vital Sign Reading Time Taken Comments Blood Pressure 102/58 09/13/2023 10:35 AM EST Pulse - - Temperature - - Respiratory Rate - - Oxygen Saturation - - Inhaled Oxygen Concentration - - Weight 82.1 kg (181 lb) 09/13/2023 10:35 AM EST Height 160 cm (5' 3") 09/13/2023 10:35 AM EST Body Mass Index 32.06 09/13/2023 10:35 AM EST documented in this encounter Progress Notes * Natalya Kumar CRNP - 09/13/2023 10:52 AM EST 27w3d Here for acute visit. Hasn't felt baby move since last night. Has eaten a lot of food,has been up and working this morning. BP low at work, 90s/30s. Is on metoprolol for tachycardia. She admits to likely not being adequately hydrated. BP better in office. Stressed importance of hydration. Will contact cardiology to see if dose of med can be adjusted. FHT 143bpm. LAURA Kyle * Pirya Evans LPN - 09/13/2023 10:37 AM EST 27w3d Pt here for absent FM, has not felt baby move since yesterday evening, ate hash browns, donut, coffee, eggs rodriguez, coke, pushed water. Has not felt any movement, could not find FHT at work. BP was 92/36 this morning documented in this encounter Plan of Treatment Upcoming Encounters Date Type Department Care Team (Late st Contact Info) Description 09/19/2023 9:00 AM EST Laboratory Laboratory, [facility] [address] [facility] [place] [phone] [place] [facility] [address] [facility] [place] [address] 09/19/2023 9:30 AM EST Office Visit Gynecology/Obstetrics [facility] [address] [facility] [place] [address] Jordon Marquis MD [address] [facility] [place] [address] 11/09/2023 8:30 AM EST Office Visit Cardiology, [facility] [address] [place] [address] Audra Noriega PA-C [address] [place] [address] [place] [address] Health Maintenance Due Date Last Done Comments [...] as of this encounter Visit Diagnoses Diagnosis Absence of movement- Primary Encounter for supervision of other normal , unspecified trimester Hx of preeclampsia, prior , currently with other poor obstetric history Adjustment disorder with anxiety Tachycardia Tachycardia, unspecified History of hyperthyroidism Personal history of other endocrine, metabolic, and immunity disorders documented in this encounter Advance Directives Latest Code Status on File Code Status Date Activated Date Inactivated Comments Full Code 09/28/2014 10:55 PM 09/30/2014 6:26 PM Th is order reflects the patients wishes and were consensually agreed upon.
--- OUTSIDE RECORDS SUMMARY | 2023-09-25 10:38 | External Medical Summary | Summary of Care ---
Author Name Unknown Organization [facility] Address [address] [place] [address] Phone [phone] Care Team Providers Care Installation & Maintenance Executive Name Role Phone Unavailable Primary Care Provider Unavailabl e Encounter Details Date Type Department Care Team (Late st Contact Info) Description 08/30/2023 Result Scan Unspecified Department <No scans attached> Allergies No known active allergiesdocumented as of this encounter (statuses as of 09/07/2023) Medications Medication Sig Dispensed Refills Start Date [...] as of this encounter (statuses as of 09/07/2023) Active Problems Problem Noted Date Diagnosed Date [...] lyrica and baclofen with KOP. Planning just neonatal critical care nurse and tylenol prn Thyroiditis 02/03/2015 Hyperthyroidism 01/25/2015 Estimated Date of Delivery Comme nts Yes 12/10/2023 Based on last me nstrual period of 03/05/2023 documented as of this encounter (statuses as of 09/07/2023) Resolved Problems Problem Noted Date Diagnosed Date Resolved Date Acute vaginitis 05/09/2016 01/17/2018 Vitamin D deficiency 03/10/2016 018 Polyhydramnios, antepartum complication 09/29/2014 10/23/2014 Overview: 09/24/14, POP = 27.6. [place] [facility] [place] Attending (Dr. Sorensen) aware. INFORMATION 09/21/2014 10/23/2014 Overview: Scan on 09/17/14; POP; 24.9 , normal first 03/03/201406/2015 Overview: Failed 50 gm glucola. Passed 3 hr GTT. Baby: "Vitor". GBS negative. Asthma, mild persistent 07/25/201201/13 COSTOCHONDRITIS 01/25/2010 03/03/2014 Acute URI 01/25/2010 03/03/2014 Cough 01/25/2010 03/03/2014 Fever 01/25/2010 03/03/2014 Routine medical exam 01/25/2010 018 documented as of this encounter (statuses as of 09/07/2023) Immunizations Name Administration Dates Next Due DTP [...] money to get more. Never true 04/30/2023 [place] Depression Scale Answer Date Recorded [place] Depression Scale Total 6 09/05/2023 The thought [...] Description 09/19/2023 9:00 AM EST Laboratory Laboratory, [facility] [address] [facility] [place] [phone] [place] [facility] [address] [facility] [place] [address] 09/19/2023 9:30 AM EST Office Visit Gynecology/Obstetrics [facility] [address] [place] [address] Jordon Marquis MD [address] [facility] [place] [address] 11/09/2023 8:30 AM EST Office Visit Cardiology, [facility] [address] [place] [address] Audra Noriega PA-C [address] [place] [address] [place] [address] Health Maintenance Due Date Last Done Comments [...] Not on filedocumented as of this encounter Procedures Procedure Name Priority Date/Time Associated Diagnosis Comments RADIOLOGY SCANNED RESULT 08/30/2023 RADIOLOGY SCANNED RESULT 08/30/2023 documented in this encounter Results * RADIOLOGY SCANNED RESULT (08/30/2023) 08/30/2023 No Physician Data Unknown DIAGNOSTIC RAD IOLOGY SERVICES * RADIOLOGY SCANNED RESULT (08/30/2023) 08/30/2023 No Physician Data Unknown DIAGNOSTIC RAD IOLOGY SERVICES documented in this encounter Advance Directives Latest Code Status on File Code Status Date Activated Date Inactivated Comments Full Code 09/28/2014 10:55 PM 09/30/2014 6:26 PM Th is order reflects the patients wishes and were consensually agreed upon.
--- OUTSIDE RECORDS SUMMARY | 2023-09-25 10:38 | External Medical Summary | Summary of Care ---
Author Name Unknown Organization [facility] Address [address] [facility] [place] [address] Phone [phone] Care Team Providers Care Experimental Machining Lab Manager Name Role Phone Unavailable Primary Care Provider Unavailabl e Encounter Details Date Type Department Care Team (Late st Contact Info) Description 09/13/2023 Telephone Gynecology/Obstetrics Dayan Mendez [address] [place] [address] Ant Dennison MD [address] [place] [phone] Allergies No known active allergiesdocumented as of [...] lyrica and baclofen with KOP. Planning just intensive care anaesthetist and tylenol prn Thyroiditis 02/03/2015 Hyperthyroidism 01/25/2015 Estimated Date of Delivery Comme nts Yes 12/10/2023 Based on last me nstrual period of 03/05/2023 documented as of this encounter (statuses as of 09/13/2023) Resolved Problems Problem Noted Date Diagnosed Date Resolved Date Acute vaginitis 05/09/2016 01/17/2018 Vitamin D deficiency 03/10/2016 018 Polyhydramnios, antepartum complication 09/29/2014 10/23/2014 Overview: 09/24/14, POP = 27.6. Pt inpatient at [facility] currently. Attending (Dr. Sorensen) aware. INFORMATION [...] money to buy more. Never true 04/30/20 Within the past 12 months, t he food you bought just didn't last and you didn't have money to get more. Never true 04/30/2023 [place] Depression Scale Answer Date Recorded [place] Depression Scale Total 6 09/05/2023 The thought [...] Telephone Encounter - Sujey Bronson LPN - 09/13/2023 9:53 AM EST Patient called requesting [place] order be placed for at [place]. Spoke with Dr. Dennison who did not feel it was necessary, she should come into the office if concerned. left message for patient to call office * Telephone Encounter - Sujey Bronson LPN - 09/13/2023 8:[address] Dennison, L&D is full. If patient cannot come to office she should have something to eat and drink and take time out from work and do a kick count. Being she is only 27 weeks he is not overly concerned. She can be evaluated at the office. Notified patient. She said she will continue to monitor things and let us know if she would like tocome over to the office. * Telephone Encounter - Sujey Bronson LPN - 09/13/2023 8:52 AM EST Pt is currently 27w3d with an Estimated Date of Delivery: 12/10/23 - Patient called reporting decreased FM, used doppler at work and was unable to find FHT. Denies LOF or bleeding, denies pain or cramping. States BP is running very low, manual BP at hospital 94/36. Cannot come to the office, she is currently at [place] and asking if she could be checked on L&D. Will review with Dr. Dennison. documented in this encounter Plan of Treatment Upcoming Encounters Date Type Department Care Team (Late st Contact Info) Description 09/19/2023 9:00 AM EST Laboratory Laboratory, [facility] [address] [place] [phone] [facility] 132 [facility] [place] [address] 09/19/2023 9:30 AM EST Office Visit Gynecology/Obstetrics [facility] [address] [place] [address] Jordon Marquis MD 132 [facility] [place] [address] 11/09/2023 8:30 AM EST Office Visit Cardiology, [facility] [address] [place] [address] Audra Noriega PA-C [address] [place] [address] [place] [phone] Health Maintenance Due Date Last Done Comments [...]
[2023-09-25] MEDS ORDERED: HYDROmorphone INJ 0.5 MG/0.5 ML SYR IV STA ×2 (10:59→14:22)
--- NOTE | 2023-09-25 12:27 | History & Physical Report ---
Date of Service September 25, 2023 Assessment & Plan (1) History of nephrolithiasis: Plan: History of nephrolithiasis, renal colic Recurrent and persistent n/v x2 days - Pt passed a small stone while in the ER. Continues to have spasm/pain and nausea with intermittent clear/frothy emesis. - CT-A/P: 1. Nonobstructing bilateral nephrolithiasis. No ureteral calculi or hydronephrosis. 2. Intrauterine gestation in cephalic positioning. 3. No bowel obstruction or bowel wall thickening.4. Normal appendix. -Recent admission for lithotripsy of 6 mm L uretal calculus with transfer to [place] for lithotripsy. [facility] [place] discharge summary reviewed. On arrival to their facility she was treated conservatively with Flomax, IV, and Dilaudid RETAIL AREA MANAGER. This was discontinued on hospital day 3 and reinitiated on day 4 due to inadequate pain control. She received a course of betamethasone on 08/28 and 08/29 in anticipation of urologic procedure in the event of labor was triggered; 08/30 patient had urologic intervention with left ureteroscopy and left laser lithotripsy. Remained for 2 additional days for pain control and was discharged in stable condition. Daily heart tracings were normal. During prior admission she had a white count of 8K, and showed no evidence of either CANDY or UTI during admission. No signs of CANDY, no signs of obstruction noted above. Will follow this afternoon for pain control and nausea/vomiting. As she likely passed a distal stone, if she is doing well and tolerating p.o. can be discharged this afternoon. If continue to have inadequate p.o. intake will admit for nausea/pain control with daily BMP and daily tones. Tylenol first line, Pyridium second-line both category B. Recommend minimal doses of narcotics with goal of pain tolerable. Pt had required dilaudid RETAIL AREA MANAGER in [facility]; distal stone is no loner present. Hydromorphone 0.25 mg every 6 hours ordered as needed for breakthrough only. Discussed risks of narcotic use during /Category. No dysuria, no leukocytosis, no UTI symptoms. 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 She reports she got home about 3 weeks ago and was doing well up until 2 days ago when she had recurrent left flank pain and low pelvic pain similar to her last kidney stone passage. She reports that she tr ied to ride this out at home but has become increasingly painful over the last 2 days and she has had recurrent nausea/vomiting several times this morning and presented to the ER for nausea control, fluid, and pain management.. Did discuss return home with observation and serial labs to monitor for obstruction, patient feels that she does not have a p.o. tolerance or adequate pain control for this Denies fever, chills, sweats. No chest pain or chest pressure. She has not had contractions and does not feel that she has had labor. Trace hematuria without dysuria. She has passed 1 small stone in her urine since being in the ER Medical History: Reviewed Medications: Reviewed Surgical History: Reviewed Family history: Reviewed Allergies: Reviewed Social History: No tobacco/ETOH use Code Status: Full Allergies Allergy/AdvReac Type Severity Reaction Status Date / Time aluminum [From Drysol] Allergy Intermediate Hives Verified 09/06/23 11:18 Home Medications Medication Instructions Recorded Confirmed Type PNV 153-FA 400 mcg-om3 35 mg-dha 1 tab PO DAILY 08/17/23 09/25/23 History 25 mg-epa 5 mg-fish oil chew tablet ( Gummies) bupropion HCl 300 mg 24 hr tablet, 300 mg PO QAM 08/17/23 09/25/23 History extended release iron 18 mg tablet 18 mg PO BID 08/17/23 09/25/23 History metoprolol succinate 25 mg 12.5 mg PO QAM 08/17/23 09/25/23 History tablet,extended release 24 hr ondansetron HCl 8 mg tablet 8 mg PO Q8H PRN NAUSEA/VOMITING 08/17/23 09/25/23 History pyridoxine (vitamin B6) 100 mg 100 mg PO DAILY 08/17/23 09/25/23 History tablet (Vitamin B-6) trazodone 50 mg tablet 50 mg PO HS 08/17/23 09/25/23 History docusate sodium 100 mg capsule 100 mg PO BID PRN Constipation 09/25/23 09/25/23 History famotidine 20 mg tablet 20 mg PO QAM PRN acid reflux 09/25/23 09/25/23 History polyethylene glycol 3350 17 gram 17 g PO BID PRN Constipation 09/25/23 09/25/23 History oral powder packet (Miralax) Past Med/Surg History Medical History History of nephrolithiasis Abdominal pain Right ovarian cyst Developmental dyslexia Depression with anxiety GERD (gastroesophageal reflux disease) Myofascial pain Chronic low back pain Herniated disc LUMBAR AND CERVICAL (FULL ROM) History of kidney stones Sacroiliac joint pain Anxiety Vitamin D deficiency HX, ? CURRENT STATUS Surgical History History of laparoscopy History of breast lump/mass excision (01/17/22) Excision of left breast mass. Dr. Jason 01/17/2022 S/P cystoscopy with ureteral stent placement 12/05/20 Dr. Lamont Ambrose- Cystoscopy, Left ureteroscopy, Laser lithotripsy, Stone basket extraction of stone, Left retrograde pyelogram, Left ureteral stent placement Nasal fracture Repair of nasal fracture Family History Mother No problems noted. Grandmother (Maternal) Lung cancer Oral cancer Other Cancer Hypertension Kidney stones Denies family history of Ovarian cancer Prostate cancer Heart disease Myocardial infarction Breast cancer Colorectal cancer Social History Smoking Status: Never smoker Tobacco Type: E-cigarettes / Vaping Second Hand Exposure: No; Do You Dip or Chew Tobacco: No; Hx Alcohol Use: Yes Alcohol type: beer Hx Substance Use: No Preferred Language: Fijian Communication Ability: Effective Visual Impairment: No Limitations Hearing Ability: Normal Lathe Tender Required: No Beliefs That Will Affect Care: None marital status: Single Current Living Situation: Spouse Current Living Situation Comment: lives with boyfriend, her son and her boyfriends daughter current occupational status: employed 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 NAD. Cooperative. HEENT: Atraumatic, normocephalic. Vision/hearing grossly intact Pulm: CTAB A&P. -wheezes, -rales, -rhonchi. Symmetrical chest rise. No increased work of breathing. No respiratory distress. Cardiac: RRR, -mrg. Radial pulses intact and symmetrical. Abdominal: , nontender. Uterine fundus palpable, otherwise no masses, soft. LLQ low pelvic tenderness. L CVA mild TTP. Ext: warm, dry. No maged Results & Data Results & Data Vital Signs (Past 12 Hours) Vital Signs Temp Pulse Pulse Resp BP BP Pulse Ox 09/25/23 11:30 78 20 97 09/25/23 11:30 93/62 L 09/25/23 11:00 88 19 100 09/25/23 11:00 109/65 09/25/23 10:30 103/71 09/25/23 10:30 81 27 H 97 09/25/23 10:11 93 H 16 116/84 99 09/25/23 10:00 92 H 19 99 09/25/23 10:00 116/84 09/25/23 09:30 98/62 L 09/25/23 09:30 103 H 19 97 09/25/23 09:26 100 H 09/25/23 09:25 101 H 18 97 09/25/23 09:24 107/74 09/25/23 09:13 95 09/25/23 09:13 112 H 18 111/84 95 09/25/23 08:25 36.2 C L 110 H 14 114/66 97 O2 Del Method 09/25/23 11:30 09/25/23 11:30 09/25/23 11:00 09/25/23 11:00 09/25/23 10:30 09/25/23 10:30 09/25/23 10:11 Room Air 09/25/23 10:00 09/25/23 10:00 09/25/23 09:30 09/25/23 09:30 09/25/23 09:26 09/25/23 09:25 09/25/23 09:24 09/25/23 09:13 Room Air 09/25/23 09:13 Room Air 09/25/23 08:25 Room Air PG Care Time/CCT Total # of Minutes Spent Total Time Spent with Patient: Total time spent is greater than 50% in coordination of care (as documented) at patient's floor/unit and/or counseling patient: Coding Level of Care Code 03763 INT INP/OBS CARE 2/55MIN Diagnoses History of nephrolithiasis Z87.442 and not yet delivered in second trimester Z34.92 Symptomatic PVCs I49.3
[2023-09-25] MEDS ORDERED: HYDROmorphone INJ 0.5 MG/0.5 ML SYR IV PRN (12:53)
[2023-09-25] MEDS ORDERED: LACTATED RINGER'S 1,000 ML IV SCH (13:00)
[2023-09-25] MEDS ORDERED: DOCUSATE SODIUM 100 MG CAP PO PRN (16:35)
[2023-09-25] MEDS: ACETAMINOPHEN 1,000 MG/100 ML VIAL IV PRN (19:44)
[2023-09-25] MEDS: HYDROmorphone INJ 0.5 MG/0.5 ML SYR IV PRN (20:54)
[2023-09-25] MEDS: PHENAZOPYRIDINE HCL 200 MG TAB PO PRN (20:54)
[2023-09-25] MEDS: traZODone HCL 50 MG TAB PO SCH (21:00)
[2023-09-26] MEDS: ONDANSETRON INJ 2 MG/ML 2 ML VIAL IV PRN ×2 (01:11→15:38)
[2023-09-26] MEDS: HYDROmorphone INJ 0.5 MG/0.5 ML SYR IV PRN ×6 (01:11→20:56)
[2023-09-26] MEDS: ACETAMINOPHEN 1,000 MG/100 ML VIAL IV PRN ×2 (03:43→15:36)
[2023-09-26] MEDS: PRENATAL VITAMIN 1 TAB PO SCH (08:03)
[2023-09-26] MEDS: METOPROLOL SUCC 25MG EXT REL TAB PO SCH (08:03)
[2023-09-26] MEDS: PYRIDOXINE HCL 50 MG TAB PO SCH (08:04)
[2023-09-26] MEDS: buPROPion XL 300 MG TABCR PO SCH (08:04)
[2023-09-26] MEDS: ACETAMINOPHEN 325 MG TAB PO PRN ×2 (08:09→23:26)
--- NOTE | 2023-09-26 08:33 | Hospitalist Progress Note ---
Date of Service September 26, 2023 Assessment & Plan (1) History of nephrolithiasis: Plan: Recurrent and persistent n/v x2 days. Pt passed a small stone while in the ER. Continues to have spasm/pain and nausea with intermittent clear/frothy emesis. History of nephrolithiasis, renal colic CT-A/P: 1. Nonobstructing bilateral nephrolithiasis. No ureteral calculi or hydronephrosis. 2. Intrauterine gestation in cephalic positioning. 3. No bowel obstruction or bowel wall thickening.4. Normal appendix. Recent admission for lithotripsy of 6 mm L uretal calculus with transfer to [place] for lithotripsy. [facility] discharge summary reviewed. 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 This was discontinued on hospital day 3 and reinitiated on day 4 due to inadequate pain control. She received a course of betamethasone on 08/28 and 08/29 in anticipation of urologic procedure in the event of labor was triggered; 08/30 patient had urologic intervention with left ureteroscopy and left laser lithotripsy. Remained for 2 additional days for pain control and was discharged in stable condition. Daily heart tracings were normal. During prior admission she had a white count of 8K, and showed no evidence of either CANDY or UTI during admission. No signs of CANDY, no signs of obstruction noted above. Admitted for n/v control, now pain control as n/v improved (reports nausea w/ uncontrolled pain) . Tylenol first line, Pyridium second-line both category B. Recommend minimal doses of narcotics with goal of pain tolerable. 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 Hydromorphone 0.25 mg every 6 hours ordered as needed for breakthrough only. Discussed risks of narcotic use during /Category. 09/26 WBC wnl, afebrile. BUN/Cr 7/0.5. UA noting trace blood, 1+ leuk esterase, 5-10 WBC, >30 epi, negative for bacteria. Reported burning with urination ?from passed stone. Abx not indicated at present but will monitor Dilaudid 0.25mg x 3 doses provided. Patient asked to change diet to regular overnight/increased dilaudid to q4h from q6h which was done. Zofran x 1 provided overnight. Will trial Oxycodone 5mg as needed. Pyridium available prn. 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 The chart was reviewed. Case discussed with LION Pineda. Agree with assessment and plan Subjective Eval this morning, tolerating advancement of diet without further nausea/vomiting but reports the nausea from uncontrolled pain. Got dilaudid this morning but wearing off quickly - discussed oral agent for longer lasting control. She is in 2nd trimester, due end of November 2023. Has used pyridium in past -- notes some burning w/ urination. Has stone in cup at present. Discussed monitoring pain control w/ medications/possible dc tomorrow. No fever/chills, chest pain, shortness of breath. Passing gas but no BM since Sunday, ambulation encouraged. Bowel regiment to begin. Physical Exam Physical Exam: General: A&Ox3. NAD. Cooperative. HEENT: normocephalic, atraumatic, mmm, trachea midline Resp: Even/unlabored, no w/c/r, on room air Cardiac: RRR, -mrg. Radial pulses intact and symmetrical. Abdominal: , nontender. Uterine fundus palpable, otherwise no masses, soft. LLQ low pelvic tenderness. L CVA mild TTP reported Ext: warm, dry. Psych: AOx3, cooperative with exam Results & Data Results & Data Vital Signs (Past 12 Hours) Vital Signs Temp Pulse Resp BP Pulse Ox O2 Del Method 09/26/23 07:39 36.5 C 90 16 107/74 98 Room Air 09/25/23 20:45 36.7 C 85 16 107/70 93 Room Air Laboratory Results 09/25/23 09/25/23 Range/Units 09:31 08:53 WBC 8.73 (4.8-10.8) K/ul RBC 3.85 L (4.20-5.40) M/uL Hgb 11.3 L (12.0-16.0) g/dl Hct 33.8 L (37.0-47.0) % MCV 87.8 (80.0-100.0) fL MCH 29.4 (25.0-34.0) pg MCHC 33.4 (32.0-36.0) g/dL RDW Std Deviation 42.8 (36.4-46.3) fL RDW Coeff of Baldo 13.5 (11.5-14.5) % Plt Count 233 (130-400) K/uL MPV 10.3 (9.4-12.4) fL Immature Gran % (Auto) 1.5 % Neut % (Auto) 67.5 % Lymph % (Auto) 16.7 % Kay % (Auto) 12.5 % Eos % (Auto) 1.6 % Baso % (Auto) 0.2 % Neut # (Auto) 5.89 (1.40-6.50) K/uL Lymph # (Auto) 1.46 (1.20-3.40) K/uL Kay # (Auto) 1.09 H (0.11-0.59) K/uL Eos # (Auto) 0.14 (0.00-0.50) K/uL Baso # (Auto) 0.02 (0.00-0.20) K/uL Immature Gran # (Auto) 0.13 (0.01-0.20) K/uL Sodium 137 (136-145) mmol/L Potassium 3.8 (3.5-5.1) mmol/L Chloride 107 (98-107) mmol/L Carbon Dioxide 22 (21-32) mmol/L Anion Gap 8 (3-11) BUN 7 (6-23) mg/dl Creatinine 0.50 L (0.6-1.2) mg/dl Est Cr Clr Drug Dosing 169.7 ml/min Est GFR ( Amer) > 150.0 ml/min Est GFR (Non-Af Amer) 130.8 ml/min BUN/Creatinine Ratio 14.0 (10-20) Glucose 92 (70-99(Fasting)) mg/dl Calcium 8.7 (8.6-10.3) mg/dl Total Bilirubin 0.3 (0.2-1.0) mg/dl AST 12 L (13-39) U/L ALT 10 (7-52) U/L Alkaline Phosphatase 80 (34-104) U/L Total Protein 6.6 (6.0-8.3) gm/dl Albumin 3.4 (3.4-5.0) gm/dl Globulin 3.2 (2.5-4.0) gm/dl Albumin/Globulin Ratio 1.1 (0.9-2) Lipase 49 (11-82) U/L Urine Color Yellow Urine Appearance Clear (Clear) Urine pH 6.5 (4.5-7.5) Ur Specific [place] 1.012 (1.000-1.030) Urine Protein Negative (Negative) Urine Glucose (UA) Negative (Negative) Urine Ketones Negative (Negative) Urine Blood Trace H (Negative) Urine Nitrite Negative (Negative) Urine Bilirubin Negative (Negative) Urine Urobilinogen Negative (Negative) Ur Leukocyte Esterase 1+ H (Negative) Urine WBC (Auto) 5-10 H (0-5) /hpf Urine RBC (Auto) 0-4 (0-4) /hpf U Hyaline Cast (Auto) 1-5 (0-5) /lpf U Epithel Cells (Auto) >30 H (0-5) /lpf Urine Bacteria (Auto) Negative (Negative) Urine Test Positive (Negative) Blood Type O Positive Antibody Screen NEGATIVE Diagnostic Findings Abdomen/Pelvis CT 09/25/23 08:[address] WITHOUT CONTRAST CT DOSE: 1360.4 mGy.cm HISTORY: Acute left-sided flank pain with stones, L flank pain, 29 weeks TECHNIQUE: Multiaxial CT images of the abdomen and pelvis were performed without contrast. A dose lowering technique was utilized adhering to the principles of ALARA. COMPARISON STUDY: Renal ultrasound 09/06/2023, CT 08/20/2023 FINDINGS: Clear lung bases. No free air. The unenhanced spleen, pancreas and adrenal glands are unremarkable. Mildly distended gallbladder. The liver is unremarkable. Three nonobstructing calculi of the right kidney measure up to 4 mm. Eight nonobstructing calculi of the left kidney measure up to 4-5 mm. Previously noted distal left ureteral calculus is no longer present. Two left-sided pelvic venous calcifications are again seen. Decompressed urinary bladder with mild wall thickening. There is an intrauterine fetus within cephalic positioning. Anterior placenta. Aorta and IVC are unremarkable. Borderline enlarged inguinal chain lymph nodes are likely reactive. No bowel obstruction or bowel wall thickening. Moderate colonic fecal retention. Noninflamed appendix. Unremarkable soft tissues. No acute fracture. IMPRESSION: 1. Nonobstructing bilateral nephrolithiasis. No ureteral calculi or hydronephrosis. 2. Intrauterine gestation in cephalic positioning. 3. No bowel obstruction or bowel wall thickening. 4. Normal appendix. ACT 112: Negative or not required by law. The above report was generated using voice recognition software. It may contain grammatical, syntax or spelling errors. Electronically signed by: Dallas Mcdonald M.D. 09/25/2023 9:50 AM PG Care Time/CCT Total # of Minutes Spent Total Time Spent with Patient: Total time spent is greater than 50% in coordination of care (as documented) at patient's floor/unit and/or counseling patient: Coding Level of Care Code 86669 SUB INP/OBS CARE 2/35MIN Diagnoses History of nephrolithiasis Z87.442 and not yet delivered in second trimester Z34.92 Symptomatic PVCs I49.3
[2023-09-26] MEDS: DOCUSATE SODIUM 100 MG CAP PO SCH ×2 (10:33→20:56)
[2023-09-26] MEDS: oxyCODONE HCL IR 5 MG TAB (IMMEDIATE RELEASE) PO PRN ×4 (10:33→22:35)
[2023-09-26] MEDS: PHENAZOPYRIDINE HCL 200 MG TAB PO PRN ×2 (14:43→23:26)
[2023-09-26] MEDS ORDERED: CALCIUM CARBONATE 500 MG CHEWABLE TAB PO PRN (16:36)
[2023-09-26] MEDS: traZODone HCL 50 MG TAB PO SCH (20:56)
[2023-09-27] MEDS: HYDROmorphone INJ 0.5 MG/0.5 ML SYR IV PRN ×6 (00:59→21:33)
[2023-09-27] MEDS: oxyCODONE HCL IR 5 MG TAB (IMMEDIATE RELEASE) PO PRN ×5 (02:49→20:23)
[2023-09-27 08:01] LABS: Basophils # (auto) 0.03 K/uL (0.00-0.20); Basophils % (auto) 0.4 %; Eosinophils % (auto) 1.2 %; Hematocrit (blood only) 33.5 % (37.0-47.0); Hemoglobin 11.1 g/dl (12.0-16.0); Immature Granulocytes # (auto) 0.12 K/uL (0.01-0.20); Immature Granulocytes % (auto) 1.5 %; Lymphocytes # (auto) 1.94 K/uL (1.20-3.40); Lymphocytes % (auto) 24.1 %; Mean Corpuscular Hemoglobin 29.5 pg (25.0-34.0); Mean Corpuscular Hgb Conc 33.1 g/dL (32.0-36.0); Mean Corpuscular Volume 89.1 fL (80.0-100.0); Mean Platelet Volume 10.1 fL (9.4-12.4); Monocytes # (auto) 0.76 K/uL (0.11-0.59); Monocytes % (auto) 9.4 %; Neutrophils % (auto) 63.4 %; Platelet Count 215 K/uL (130-400); RDW Coefficient of Variation 13.4 % (11.5-14.5); RDW Standard Deviation 43.3 fL (36.4-46.3); Red Blood Count 3.76 M/uL (4.20-5.40); White Blood Count 8.05 K/ul (4.8-10.8)
--- NOTE | 2023-09-27 08:12 | Hospitalist Progress Note ---
Date of Service September 27, 2023 Assessment & Plan (1) History of nephrolithiasis: Plan: Recurrent and persistent n/v x2 days. History of nephrolithiasis, renal colic Pt passed a small stone while in the ER. Continues to have spasm/pain and nausea with intermittent clear/frothy emesis. Recent admission for lithotripsy of 6 mm L uretal calculus with transfer to [place] for lithotripsy. [facility] [place] [facility] discharge summary reviewed. 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 This was discontinued on hospital day 3 and reinitiated on day 4 due to inadequate pain control. She received a course of betamethasone on 08/28 and 08/29 in anticipation of urologic procedure in the event of labor was triggered; 08/30 patient had urologic intervention with left ureteroscopy and left laser lithotripsy. Remained for 2 additional days for pain control and was discharged in stable condition. Daily heart tracings were normal. During prior admission she had a white count of 8K, and showed no evidence of either CANDY or UTI during admission. On admission, CTA/P: 1. Nonobstructing bilateral nephrolithiasis. No ureteral calculi or hydronephrosis. 2. Intrauterine gestation in cephalic positioning. 3. No bowel obstruction or bowel wall thickening.4. Normal appendix. No signs of CANDY, no signs of obstruction noted above. Admitted for n/v control, now pain control as n/v improved (reports nausea w/ uncontrolled pain) Tylenol first line, Pyridium second-line both category B. Recommend minimal doses of narcotics with goal of pain tolerable. 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 Hydromorphone 0.25 mg every 6 hours ordered as needed for breakthrough only. Discussed risks of narcotic use during /Category. 09/26 WBC wnl, afebrile. BUN/Cr 7/0.5. UA noting trace blood, 1+ leuk esterase, 5-10 WBC, >30 epi, negative for bacteria. Reported burning with urination ?from passed stone. Abx not indicated at present but will monitor Dilaudid 0.25mg x 3 doses provided. Patient asked to change diet to regular overnight/increased dilaudid to q4h from q6h which was done. Zofran x 1 provided overnight. Will trial Oxycodone 5mg as needed. Pyridium available prn. Tolerating diet 09/27 Patient still requiring quite a bit of pain medications to maintain comfort. Check Renal US given L flank pain to eval hydro/consultation w/ urology Additional 1L IVF NSS, flomax 0.4mg PO X1 -- patient reports getting flomax at [place]. ?discomfort from ureteral stone. On plan from ABAP DEVELOPER at [place] and will continue Mag 1.5, 2gm IV ordered and will monitor on repeat Continue bowel regimen w/ docusate BID (last BM reported SUNDAY). 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 pyridium available, urology consulted (5) Nausea & vomiting: Plan: antiemetics prn. 1 episode yesterday, reported 2nd to pain. no further today (6) Constipation: Plan: bowel regimen, ambulation encouraged Plan DVT prophylaxis: Ambulate, SCDs continued inpatient stay Admission and Anticipated Discharge Date Admission Date: September 25, 2023 Supervising Physician Co-Signing Physician Notes The patient was not seen by me. The chart was reviewed. Case discussed with LION Pineda. Agree with assessment and plan Subjective Eval this morning, went for renal US this morning, no hydro. Some emesis yesterday w/ nausea from pain. Continued intermittent burning/stabbing with urination. Having some sediment in her urine. Discussed urology consultation, supplemental IVF to see if able to help pass. SHe notes she did get some flomax down at [place]. Repeat UA ordered for eval for infection/bacteria. Physical Exam 2 Physical Exam: General: WD/WN female sitting up in bed, NAD HEENT: normocephalic, atraumatic, mm slightly dry, trachea midline Resp: Even/unlabored, no w/c/r, on room air Cardiac: RRR, -mrg. Radial pulses intact and symmetrical. Abdominal: , nontender. Uterine fundus palpable, otherwise no masses, soft. LLQ low pelvic tenderness. L CVA mild TTP reported Ext: warm, dry. Psych: AOx3, cooperative with exam Results & Data Results & Data Vital Signs (Past 12 Hours) Vital Signs Temp Pulse Resp BP BP Pulse Ox O2 Del Method 09/27/23 08:08 36.8 C 86 18 107/67 98 Room Air 09/26/23 21:30 36.4 C L 88 18 111/74 97 Room Air Laboratory Results 09/27/23 07:11 Diagnostic Findings Renal Ultrasound 09/27/23 08:57 RENAL ULTRASOUND HISTORY: Acute left sided flank pain L flank pain, eval hydro COMPARISON: CT 09/25/2023 FINDINGS: Right kidney: 10.9 cm. Calculi of the right kidney are again noted measuring up to 5 mm. No hydronephrosis. Normal corticomedullary differentiation and cortical thickness. Left kidney: 11.5 cm. Characterize left kidney are again noted measuring up to 6 mm. No hydronephrosis. Normal corticomedullary differentiation and cortical thickness. Bladder: No bladder wall thickening. The bilateral ureteral jets were identified. IMPRESSION: 1. Bilateral renal calculi are redemonstrated without hydronephrosis. 2. Unremarkable urinary bladder. ACT 112: Negative or not required by law. Electronically signed by: Dallas Mcdonald M.D. 09/27/2023 10:08 AM PG Care Time/CCT Total # of Minutes Spent Total Time Spent with Patient: Total time spent is greater than 50% in coordination of care (as documented) at patient's floor/unit and/or counseling patient: Coding Level of Care Code 35504 SUB INP/OBS CARE 3/50MIN Diagnoses History of nephrolithiasis Z87.442 and not yet delivered in second trimester Z34.92 Symptomatic PVCs I49.3 Renal colic on left side N23 Nausea & vomiting R11.2 Vomiting type: unspecified Constipation K59.00 (5) Nausea & vomiting Vomiting type: unspecified Qualified Code(s): R11.2 - Nausea with vomiting, unspecified
[2023-09-27 08:14] LABS: Anion Gap 6 (3-11); BUN Creatinine Ratio 12.2 (10-20); Blood Urea Nitrogen 6 mg/dl (6-23); Calcium 8.5 mg/dl (8.6-10.3); Carbon Dioxide 25 mmol/L (21-32); Chloride 105 mmol/L (98-107); Creatinine Clr Calc Pharmacy 173.2 ml/min; Est GFR (African American) > 150.0 ml/min; Est GFR (Non-African American) 131.7 ml/min; Glucose 94 mg/dl (70-99(Fasting)); Magnesium 1.5 mg/dl (1.7-2.4); Potassium 3.8 mmol/L (3.5-5.1); Sodium 136 mmol/L (136-145)
[2023-09-27] MEDS: METOPROLOL SUCC 25MG EXT REL TAB PO SCH (08:19)
[2023-09-27] MEDS: PRENATAL VITAMIN 1 TAB PO SCH (08:20)
[2023-09-27] MEDS: DOCUSATE SODIUM 100 MG CAP PO SCH ×2 (08:20→20:22)
[2023-09-27] MEDS: buPROPion XL 300 MG TABCR PO SCH (08:20)
[2023-09-27] MEDS: PYRIDOXINE HCL 50 MG TAB PO SCH (08:21)
[2023-09-27 08:54] LABS: Appearance Urine Clear (Clear); Bacteria Urine Automated Negative (Negative); Bilirubin Urine Negative (Negative); Blood Urine Negative (Negative); Color Urine Dark Yellow; Epithelial Cell Urine Auto 20-30 /lpf (0-5); Glucose Urine UA Negative (Negative); Ketones Urine Negative (Negative); Leukocyte Esterase Urine 1+ (Negative); Nitrite Urine Positive (Negative); Protein Urine Negative (Negative); RBC Urine Automated 0-4 /hpf (0-4); Specific Gravity Urine 1.009 (1.000-1.030); Urobilinogen Urine Negative (Negative)
[2023-09-27] MEDS: POLYETHYLENE (MIRALAX) 17 GM PACK PO PRN (09:20)
[2023-09-27] MEDS: MAGNESIUM SULFATE / D5W 1 GM/100 ML BAG IV SCH ×2 (10:03→11:46)
--- NOTE | 2023-09-27 10:10 | Ultrasound Report ---
RENAL ULTRASOUND HISTORY: Acute left sided flank pain L flank pain, eval hydro COMPARISON: CT 09/25/2023 FINDINGS: Right kidney: 10.9 cm. Calculi of the right kidney are again noted measuring up to 5 mm. No hydroneph rosis. Normal corticomedullary differentiation and cortical thickness. Left kidney: 11.5 cm. Characterize left kidney are again noted measuring up to 6 mm. No hydronephrosi s. Normal corticomedullary differentiation and cortical thickness. Bladder: No bladder wall thickening. The bilateral ureteral jets were identified. IMPRESSION: 1. Bilateral renal calculi are redemonstrated without hydronephrosis. 2. Unremarkable urinary bladder. ACT 112: Negative or not required by law. Electronically signed by: Dallas Mcdonald M.D. 09/27/2023 10:08 AM
[2023-09-27] MEDS ORDERED: TAMSULOSIN HCL 0.4 MG CAP PO ONE (10:41)
[2023-09-27] MEDS ORDERED: SODIUM CHLORIDE 0.9% 1,000 ML IV SCH (10:45)
--- NOTE | 2023-09-27 18:41 | Urology Consultation ---
Date of Consultation September 27, 2023 Assessment & Plan (1) Nephrolithiasis: (2) Acute flank pain: Plan 28-year-old female admitted for pain management secondary to renal colic/flank pain. Afebrile and hemodynamically stable. Labs reviewedno leukocytosis and creatinine stable 0.49. Urinalysis on arrival not suggestive of infection. Voiding spontaneously, continue to monitor. CT abdomen pelvis on admission was notable for bilateral nephrolithiasis wit hout ureteral stones or hydronephrosis. Renal ultrasound today again shows bilateral nephrolithiasis without signs of obstruction There are no findings on her imaging to explain her flank pain. Could possibly be residual pain due to reported recent stone passage. Would recommend checking urine culture given her reports of dysuria today. Continue supportive care and pain management as needed. Continue bowel regimen. Urology will sign off. Please contact us any further questions, concerns, or changes in patient status. History of Present Illness Attending Physician: Anshul Ambrose MD History of Present Illness 28-year-old female who is 28+6 weeks who presented with left flank pain with associated nausea and vomiting and admitted for pain control. Per chart review, patient had recent transfer to [place] where she did undergo a procedure for stone treatment in August. She had been doing well up until few days ago when she developed left flank pain, lower pelvic pain and some nausea and vomiting. She felt symptoms were similar to her prior kidney stone passage. On arrival to the ED, she was afebrile and hemodynamically stable. Labs showing no leukocytosis and creatinine 0.50. Urinalysis with trace blood, 1+ LE, negative bacteria, negative nitrite. CT abdomen pelvis notable for bilateral nephrolithiasis, no ureteral stones or hydronephrosis. Patient was admitted to medicine service for pain management. Urology asked to evaluate patient due to renal colic. Patient examined at bedside this afternoon. Awake, sitting up in bed on arrival. No acute distress. Patient states she did pass a small stone on arrival to the ED and questions if her symptoms are residual from that. Today she reports dysuria and pain with urination. Notes some sediment in her urine. Denies hematuria. Voiding without issue. Feels she is emptying her bladder. Denies fevers or chills. Denies nausea or vomiting at present. Allergies Allergy/AdvReac Type Severity Reaction Status Date / Time aluminum [From Drysol] Allergy Intermediate Hives Verified 09/06/23 11:18 Home Medications Medication Instructions Recorded Confirmed Type PNV 153-FA 400 mcg-om3 35 mg-dha 1 tab PO DAILY 08/17/23 09/25/23 History 25 mg-epa 5 mg-fish oil chew tablet ( Gummies) bupropion HCl 300 mg 24 hr tablet, 300 mg PO QAM 08/17/23 09/25/23 History extended release iron 18 mg tablet 18 mg PO BID 08/17/23 09/25/23 History metoprolol succinate 25 mg 12.5 mg PO QAM 08/17/23 09/25/23 History tablet,extended release 24 hr ondansetron HCl 8 mg tablet 8 mg PO Q8H PRN NAUSEA/VOMITING 08/17/23 09/25/23 History pyridoxine (vitamin B6) 100 mg 100 mg PO DAILY 08/17/23 09/25/23 History tablet (Vitamin B-6) trazodone 50 mg tablet 50 mg PO HS 08/17/23 09/25/23 History docusate sodium 100 mg capsule 100 mg PO BID PRN Constipation 09/25/23 09/25/23 History famotidine 20 mg tablet 20 mg PO QAM PRN acid reflux 09/25/23 09/25/23 History polyethylene glycol 3350 17 gram 17 g PO BID PRN Constipation 09/25/23 09/25/23 History oral powder packet (Miralax) Patient History Medical History History of nephrolithiasis Abdominal pain Right ovarian cyst Developmental dyslexia Depression with anxiety GERD (gastroesophageal reflux disease) Myofascial pain Chronic low back pain Herniated disc LUMBAR AND CERVICAL (FULL ROM) History of kidney stones Sacroiliac joint pain Anxiety Vitamin D deficiency HX, ? CURRENT STATUS Surgical History History of laparoscopy History of breast lump/mass excision (01/17/22) Excision of left breast mass. Dr. Jason 01/17/2022 S/P cystoscopy with ureteral stent placement 12/05/20 Dr. Lamont Ambrose- Cystoscopy, Left ureteroscopy, Laser lithotripsy, Stone basket extraction of stone, Left retrograde pyelogram, Left ureteral stent placement Nasal fracture Repair of nasal fracture Family History Mother No problems noted. Grandmother (Maternal) Lung cancer Oral cancer Other Cancer Hypertension Kidney stones Denies family history of Ovarian cancer Prostate cancer Heart disease Myocardial infarction Breast cancer Colorectal cancer Social History Smoking Status: Never smoker Tobacco Type: E-cigarettes / Vaping Second Hand Exposure: No; Do You Dip or Chew Tobacco: No; Tobacco Cessation Education Requested by Patient: No Hx Alcohol Use: Yes Alcohol type: beer Hx Substance Use: No Preferred Language: Rwandan Communication Ability: Effective Visual Impairment: No Limitations Hearing Ability: Normal Guide Winder Required: No Beliefs That Will Affect Care: None marital status: Single Current Living Situation: Other Current Living Situation Comment: boyfriend current occupational status: employed 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 @ [employer] How many Children do You have: 1 Feels Safe at Home: Yes Safety Concerns: Feels Safe At This Time Childhood Exposure to Second-Hand Smoke: No Diet: regular during the past year weight has: increased > 10 lbs Physical Activity Frequency: Daily Seatbelt Use: always Sunscreen Use: Yes Assistive Devices: None Review of Systems Review of Systems: All systems reviewed & are unremarkable except as noted in HPI & below Physical Exam Constitutional: well developed and well nourished; no acute distress Respiratory: normal respiratory effort; no respiratory distress and no labored breathing Gastrointestinal (Abdomen): Musculoskeletal: Head/Neck/Chest: normocephalic Skin: No visible rashes or lesions to exposed skin areas Neurologic: moves all extremities and awake Psychiatric: A+Ox3, euthymic affect Results & Data Vital Signs (Past 12 Hours) Vital Signs Temp Pulse Resp BP Pulse Ox O2 Del Method 09/27/23 15:10 36.6 C 95 H 16 116/78 98 Room Air 09/27/23 08:48 Room Air 09/27/23 08:08 36.8 C 86 18 107/67 98 Room Air PG Care Time/CCT Total # of Minutes Spent Total Time Spent with Patient: Total time spent is greater than 50% in coordination of care (as documented) at patient's floor/unit and/or counseling patient: Coding Level of Care Code 87734 IN/OBS CONSULT LVL 3,45M Diagnoses Nephrolithiasis N20.0 Acute flank pain R10.9
[2023-09-27] MEDS: traZODone HCL 50 MG TAB PO SCH (20:24)
[2023-09-28] MEDS: oxyCODONE HCL IR 5 MG TAB (IMMEDIATE RELEASE) PO PRN ×6 (01:12→23:40)
[2023-09-28] MEDS: HYDROmorphone INJ 0.5 MG/0.5 ML SYR IV PRN ×10 (02:59→23:43)
[2023-09-28 07:25] LABS: Basophils # (auto) 0.02 K/uL (0.00-0.20); Basophils % (auto) 0.3 %; Eosinophils # (auto) 0.06 K/uL (0.00-0.50); Eosinophils % (auto) 0.8 %; Hematocrit (blood only) 31.6 % (37.0-47.0); Hemoglobin 10.4 g/dl (12.0-16.0); Immature Granulocytes # (auto) 0.07 K/uL (0.01-0.20); Immature Granulocytes % (auto) 0.9 %; Lymphocytes # (auto) 1.85 K/uL (1.20-3.40); Lymphocytes % (auto) 24.7 %; Mean Corpuscular Hemoglobin 28.9 pg (25.0-34.0); Mean Corpuscular Hgb Conc 32.9 g/dL (32.0-36.0); Mean Corpuscular Volume 87.8 fL (80.0-100.0); Mean Platelet Volume 10.5 fL (9.4-12.4); Monocytes % (auto) 9.3 %; Platelet Count 198 K/uL (130-400); RDW Coefficient of Variation 13.3 % (11.5-14.5); RDW Standard Deviation 42.3 fL (36.4-46.3)
[2023-09-28 07:42] LABS: Anion Gap 5 (3-11); BUN Creatinine Ratio 16.3 (10-20); Blood Urea Nitrogen 7 mg/dl (6-23); Calcium 8.2 mg/dl (8.6-10.3); Carbon Dioxide 25 mmol/L (21-32); Chloride 106 mmol/L (98-107); Creatinine Clr Calc Pharmacy 197.4 ml/min; Est GFR (African American) > 150.0 ml/min; Est GFR (Non-African American) 137.4 ml/min; Glucose 85 mg/dl (70-99(Fasting)); Magnesium 1.5 mg/dl (1.7-2.4); Potassium 3.8 mmol/L (3.5-5.1); Sodium 136 mmol/L (136-145)
--- NOTE | 2023-09-28 08:18 | Hospitalist Progress Note ---
Date of Service September 28, 2023 Assessment & Plan (1) History of nephrolithiasis: Plan: Recurrent and persistent n/v x2 days. History of nephrolithiasis, renal colic Pt passed a small stone while in the ER. Continues to have spasm/pain and nausea with intermittent clear/frothy emesis. Recent admission for lithotripsy of 6 mm L uretal calculus with transfer to [place] for lithotripsy. [facility] discharge summary reviewed. * On arrival to their facility she was treated conservatively with Flomax, IV, and Dilaudid DISABILITY REPRESENTATIVE. This was discontinued on hospital day 3 and reinitiated on day 4 due to inadequate pain control. She received a course of betamethasone on 08/28 and 08/29 in anticipation of urologic procedure in the event of labor was triggered; 08/30 patient had urologic intervention with left ureteroscopy and left laser lithotripsy. Remained for 2 additional days for pain control and was discharged in stable condition. Daily heart tracings were normal. During prior admission she had a white count of 8K, and showed no evidence of either CANDY or UTI during admission. On admission, CTA/P: 1. Nonobstructing bilateral nephrolithiasis. No ureteral calculi or hydronephrosis. 2. Intrauterine gestation in cephalic positioning. 3. No bowel obstruction or bowel wall thickening.4. Normal appendix. No signs of CANDY, no signs of obstruction noted above. Admitted for n/v control, now pain control as n/v improved (reports nausea w/ uncontrolled pain) Tylenol first line, Pyridium second-line both category B. Recommend minimal doses of narcotics with goal of pain tolerable. Pt had required Dilaudid DISABILITY REPRESENTATIVE in [facility]; distal stone is no loner present. Hydromorphone 0.25 mg every 6 hours ordered as needed for breakthrough only. Discussed risks of narcotic use during /Category. 09/26 WBC wnl, afebrile. BUN/Cr 7/0.5. UA noting trace blood, 1+ leuk esterase, 5-10 WBC, >30 epi, negative for bacteria. Reported burning with urination ?from passed stone. Abx not indicated at present but will monitor Dilaudid 0.25mg x 3 doses provided. Patient asked to change diet to regular overnight/increased dilaudid to q4h from q6h which was done. Zofran x 1 provided overnight. Will trial Oxycodone 5mg as needed. Pyridium available prn. Tolerating diet 09/27 Patient still requiring quite a bit of pain medications to maintain comfort. Check Renal US given L flank pain to eval hydro/consultation w/ urology Additional 1L IVF NSS, flomax 0.4mg PO X1 -- patient reports getting flomax at [place]. ?discomfort from ureteral stone. On plan from PEN AND PENCIL REPAIRER at [place] and will continue Mag 1.5, 2gm IV ordered and will monitor on repeat Continue bowel regimen w/ docusate BID (last BM reported SUNDAY). Ambulation encouraged Continue pain control/antiemetics as needed/supportive care 09/28 Renal US w/o evidence for hydro or obstruction. Repeat UA w/o evidence for bacteria. WBC wnl/afebrile. *Noting prior negative w/ stone, ?accuracy w/ -Asking RN to obtain urine and send for culture, empirically start Keflex for now given + nitrites (however could be from the pyridium) Pain management consulted for assistance for pain control. Additional 0.5mg IV dilaudid x 1 to be provided. IV magnesium PEN AND PENCIL REPAIRER consulted as well given 29wk gestation/concerns w/ medications/safety Increase Dilaudid to 0.5mg as needed, NSS @ 80cc/hr (appearing dehydrated on exam) Tachycardia/some lightheadedness but no CP/shortness of breath. Will check ECHO -- was to have outpatient with urology (2) and not yet delivered in second trimester: Plan: 28-year-old female DD 11/20/2023 at 28+6 wks Daily tones ordered, follows [facility]PA[facility] -- consult placed as above (3) Symptomatic PVCs: Plan: Continue MTP (4) Renal colic on left side: Plan: as above, pain control w/ opiates/Tylenol. pyridium available, urology consulted (5) Nausea & vomiting: Plan: antiemetics prn. 1 episode yesterday, reported 2nd to pain. no further today (6) Constipation: Plan: bowel regimen, ambulation encouraged (7) Tachycardia: Plan: tachycardic to 120-130s this morning. EKG obtained w/ sinus tachy to 125bpm, low voltage QRS, nonspecific T wave abn IV mag ordered for mag 1.5. No chest pain but reporting palpitations. Increased pain control as above, low 100s Hx symptomatic PVCs, on metoprolol 12.5mg daily Checking lactic, continue maintenance IVF @ 80cc/hr for now given dehydration on examination Moving to monitored bed, will check ECHO given reports of cardiology wanting her to have ECHO outpatient Plan DVT prophylaxis: Ambulate, SCDs moving to telemetry, IV magnesium, echo Urine cx to be obtained, start keflex empirically Admission and Anticipated Discharge Date Admission Date: September 25, 2023 Supervising Physician Co-Signing Physician Notes The patient was not seen by me. The chart was reviewed. Case discussed with LION Pineda. Agree with assessment and plan Subjective Patient evaluated this morning, increased pain. Dilaudid just administered, having elevated HR/feels like heart is racing. No CP but feels palpitations. EKG w/ sinus tachycardia. Discussed pain control but also consultation w/ PEN AND PENCIL REPAIRER as well as pain management for safe plan. She continues to endorse burning with urination, feels like razor blades. Some sediment in urine but no further stones. Repeat UA w/o bacteria/no fever/leukocytosis. Drinking lots of water but veins flat. Having some occassional numbness/tingling to her face. No further emesis. NO fever/chills. Does not appear comfortable at current time. Does have heart tones and can still feel him moving. Physical Exam 2 Physical Exam: 28yo F sitting up in bed, just medicated for pain, mild-moderately uncomfortable appearing head normocephalic, atraumatic, mm dry, trachea midline resp; RR 20-22,diminished in the bases but no w/c/r, on room air CV: tachycardic (rates to 120-130s), regular, trace pedal edema but calves nontender/pulses palpable. R forearm IV site infiltrated previously GI: +BS, uterine fundus palpable, no masses, soft otherwise LLQ/pelvic tenderness no L CVA tenderness reported Psych: AOx3, cooperative Results & Data Results & Data Vital Signs (Past 12 Hours) Vital Signs Temp Pulse Resp BP BP Pulse Ox O2 Del Method 09/28/23 07:53 36.7 C 100 H 18 104/68 97 Room Air 09/27/23 21:56 36.5 C 93 H 18 106/71 96 Room Air Laboratory Results 09/28/23 06:51 09/28/23 06:51 Mag 1.5 UA + nitrite, 1+ leuk esterase, 5-10 WBC, 20-30 epi, NO bacteria PG Care Time/CCT Total # of Minutes Spent Total Time Spent with Patient: Total time spent is greater than 50% in coordination of care (as documented) at patient's floor/unit and/or counseling patient: Coding Level of Care Code 41483 SUB INP/OBS CARE 3/50MIN Diagnoses History of nephrolithiasis Z87.442 and not yet delivered in second trimester Z34.92 Symptomatic PVCs I49.3 Renal colic on left side N23 Nausea & vomiting R11.2 Vomiting type: unspecified Constipation K59.00 Tachycardia R00.0 (5) Nausea & vomiting Vomiting type: unspecified Qualified Code(s): R11.2 - Nausea with vomiting, unspecified
[2023-09-28] MEDS: MAGNESIUM SULFATE / D5W 1 GM/100 ML BAG IV SCH ×2 (08:45→10:15)
[2023-09-28] MEDS: PRENATAL VITAMIN 1 TAB PO SCH ×2 (08:46→11:16)
[2023-09-28] MEDS: DOCUSATE SODIUM 100 MG CAP PO SCH ×2 (08:46→20:26)
[2023-09-28] MEDS: TAMSULOSIN HCL 0.4 MG CAP PO SCH (08:46)
[2023-09-28] MEDS: PYRIDOXINE HCL 50 MG TAB PO SCH (08:46)
[2023-09-28] MEDS: METOPROLOL SUCC 25MG EXT REL TAB PO SCH (08:46)
[2023-09-28] MEDS: buPROPion XL 300 MG TABCR PO SCH (08:46)
[2023-09-28] MEDS ORDERED: HYDROmorphone INJ 0.5 MG/0.5 ML SYR IV STA (08:56)
[2023-09-28] MEDS: SODIUM CHLORIDE 0.9% 1,000 ML IV SCH ×2 (10:15→21:39)
[2023-09-28 10:19] LABS: Albumin Level 2.9 gm/dl (3.4-5.0); Bilirubin Direct 0.1 mg/dl (0-0.2); Bilirubin,Total 0.3 mg/dl (0.2-1.0)
[2023-09-28 10:25] LABS: Total Protein 5.6 gm/dl (6.0-8.3)
[2023-09-28] MEDS: FERROUS SULFATE 325 MG TAB PO SCH (11:23)
--- NOTE | 2023-09-28 14:01 | Pain Management Consultation ---
Date of Consultation September 28, 2023 Assessment & Plan (1) Acute flank pain: (2) Renal colic on left side: (3) History of nephrolithiasis: (4) and not yet delivered in third trimester: Plan Patient's pain is felt to be directly related to her nephrolithiasis and continu ed passing of stones and sediment. Her pain is not near as severe as when she was previously hospitalized for a stone that was lodged in her left ureter that required extraction. Recent medication changes have caused her pain to become under control. 1. There is no role for interventional pain management procedure at this time, especially in the setting of third trimester . 2. No changes to current pain medication regimen are made. Continue with oxycodone and hydromorphone as needed, and reduce dose and frequency of administration as soon as able. 3. As the patient was previously on pregabalin 25 mg by our office, we did briefly discuss using this medication for adjunctive pain control. Taking into account its safety profile, currently it is recommended against, as the benefit does not clearly outweigh the risks since her pain is relatively controlled at this time. Thank you for this consultation, pain management service will sign off at this time. History of Present Illness Reason for Consultation: Renal colic pain, left Attending Physician: Anshul Ambrose MD History of Present Illness Patient is a 28-year-old female well-known to the pain management service. She was most recently seen in our clinic back in October for pain related to her Neck/C-spine. Procedurally, she has had an L5-S1 interlaminar YOLY and a left SI joint injection done in October and December 2021, respectively. She is currently hospitalized for pain related to kidney stones. She does relate a history of nephrolithiasis, which has been severe at times. She was seen at [facility] in early August for a similar issue, and she was eventually transferred to [facility] due to her pain level and inability to pass a stone that seem to be lodged in her left ureter. Of note, she is nearly 30 weeks currently. She did end up having to undergo a cystoscopy and ureteroscopy with lithotripsy and basket stone removal. While she was in [place], she did require a Dilaudid CHIEF ORDER DISPATCHER for pain control. Today, the patient says that she is feeling quite a bit better due to recent adjustments in medications. The IV hydromorphone was recently increased and she is also taking oral oxycodone. She localizes the majority of pain to her lower left ureter and bladder and urethra region. She says that most my pain is "mainly down here", pointing to her lower abdomen and genitalia. Patient does admit to a more mild pain in her left costovertebral region and flank, but it is minimal compared to the other pain. She says that the pain does not wrap around her side, but rather it travels through the abdomen and distally. She feels that her pain is directly related to her kidney stones. Patient says that she does understand the risks of being on narcotic pain medication while , while also at the same time trying to manage pain so that it does not cause her to go into labor. Case discussed with Dr. Diana Nava. Allergies Allergy/AdvReac Type Severity Reaction Status Date / Time aluminum [From Drysol] Allergy Intermediate Hives Verified 09/06/23 11:18 Home Medications Medication Instructions Recorded Confirmed Type PNV 153-FA 400 mcg-om3 35 mg-dha 1 tab PO DAILY 08/17/23 09/25/23 History 25 mg-epa 5 mg-fish oil chew tablet ( Gummies) bupropion HCl 300 mg 24 hr tablet, 300 mg PO QAM 08/17/23 09/25/23 History extended release iron 18 mg tablet 18 mg PO BID 08/17/23 09/25/23 History metoprolol succinate 25 mg 12.5 mg PO QAM 08/17/23 09/25/23 History tablet,extended release 24 hr ondansetron HCl 8 mg tablet 8 mg PO Q8H PRN NAUSEA/VOMITING 08/17/23 09/25/23 History pyridoxine (vitamin B6) 100 mg 100 mg PO DAILY 08/17/23 09/25/23 History tablet (Vitamin B-6) trazodone 50 mg tablet 50 mg PO HS 08/17/23 09/25/23 History docusate sodium 100 mg capsule 100 mg PO BID PRN Constipation 09/25/23 09/25/23 History famotidine 20 mg tablet 20 mg PO QAM PRN acid reflux 09/25/23 09/25/23 History polyethylene glycol 3350 17 gram 17 g PO BID PRN Constipation 09/25/23 09/25/23 History oral powder packet (Miralax) Patient History Medical History (Updated 09/28/23 @ 14:12 by Dung Morrison PA-C) and not yet delivered in third trimester History of nephrolithiasis Abdominal pain Right ovarian cyst Developmental dyslexia Depression with anxiety GERD (gastroesophageal reflux disease) Myofascial pain Chronic low back pain Herniated disc LUMBAR AND CERVICAL (FULL ROM) History of kidney stones Sacroiliac joint pain Anxiety Vitamin D deficiency HX, ? CURRENT STATUS Surgical History History of laparoscopy History of breast lump/mass excision (01/17/22) Excision of left breast mass. Dr. Jason 01/17/2022 S/P cystoscopy with ureteral stent placement 12/05/20 Dr. Lamont Ambrose- Cystoscopy, Left ureteroscopy, Laser lithotripsy, Stone basket extraction of stone, Left retrograde pyelogram, Left ureteral stent placement Nasal fracture Repair of nasal fracture Family History Mother No problems noted. Grandmother (Maternal) Lung cancer Oral cancer Other Cancer Hypertension Kidney stones Denies family history of Ovarian cancer Prostate cancer Heart disease Myocardial infarction Breast cancer Colorectal cancer Social History Smoking Status: Never smoker Tobacco Type: E-cigarettes / Vaping Second Hand Exposure: No; Do You Dip or Chew Tobacco: No; Tobacco Cessation Education Requested by Patient: No Hx Alcohol Use: Yes Alcohol type: beer Hx Substance Use: No Preferred Language: Ivorian Communication Ability: Effective Visual Impairment: No Limitations Hearing Ability: Normal Carrier Associate Required: No Beliefs That Will Affect Care: None marital status: Single Current Living Situation: Other Current Living Situation Comment: boyfriend current occupational status: employed 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 Mood and affect is appropriate. Does not appear in acute distress. Currently undergoing nonstress test for . Appears relatively comfortable. HEAD: Normocephalic; atraumatic. NECK: Trachea is midline. CHEST: Regular chest respiration and excursion. EXTREMITIES: Full ROM. No TTP. Distal sensation and pulses intact bilaterally. BACK: + Mild tenderness left costovertebral angle. NEURO: CN II-XII grossly intact with no focal deficits noted. Awake, alert, and oriented x 3. Distal sensation of lower legs intact. SKIN: No lesions, erythema, or rashes noted.
--- NOTE | 2023-09-28 15:34 | OB/GYN Consultation ---
Date of Consultation September 28, 2023 Assessment & Plan (1) and not yet delivered in third trimester: (2) Depression: (3) Renal colic: (4) Kidney stone complicating : Patient is a 28-year-old -0-0-1 at 29 weeks and 4 days of gestation admitted for kidney stones, renal colic, history of lithotripsy at [facility] during this , has been passing stones and sediment since admission and feeling better, Vital signs stable afebrile, heart rate reassuring, Recommend NST daily, ordered Cervix is closed, no signs or symptoms of labor, tenderness noted on the bladder during vaginal exam, Anemic, added iron and vitamin to her current medications, I agree with pain management recommend Tylenol for pain as a first option, save narcotics for severe pain with the lowest dose possible, patient seems comfortable and does not require narcotics at this point, Continue to monitor closely, All questions were answered. (5) History of pre-eclampsia in prior , currently in third trimester: (6) Anemia affecting in third trimester: History of Present Illness Reason for Consultation: at 29+ wks with kidney stones and pain management. Attending Physician: Anshul Ambrose MD History of Present Illness Patient is a 28 yo at 29.4 with h/o recurrent kidney stones, admission for [facility] for lithotripsy, has been passing small stones sediments since then. She has been requiring Dilaudid, IV Tylenol for pain. She feels better today. Her pain is mostly on suprapubic area, not in her back nor in flanks. No ctxs/ LOF/VB +FM Her has been complicated by: 1) h/o Preeclampsia with P1 2) Kidney stones 3) h/o chronic back pain, 4) h/o hyperthroidism, 5) Tachycardia, on telemetry unit now, 6) Anxiety 7) Anemia, on iron Allergies Allergy/AdvReac Type Severity Reaction Status Date / Time aluminum [From Drysol] Allergy Intermediate Hives Verified 09/06/23 11:18 Home Medications Medication Instructions Recorded Confirmed Type PNV 153-FA 400 mcg-om3 35 mg-dha 1 tab PO DAILY 08/17/23 09/25/23 History 25 mg-epa 5 mg-fish oil chew tablet ( Gummies) bupropion HCl 300 mg 24 hr tablet, 300 mg PO QAM 08/17/23 09/25/23 History extended release iron 18 mg tablet 18 mg PO BID 08/17/23 09/25/23 History metoprolol succinate 25 mg 12.5 mg PO QAM 08/17/23 09/25/23 History tablet,extended release 24 hr ondansetron HCl 8 mg tablet 8 mg PO Q8H PRN NAUSEA/VOMITING 08/17/23 09/25/23 History pyridoxine (vitamin B6) 100 mg 100 mg PO DAILY 08/17/23 09/25/23 History tablet (Vitamin B-6) trazodone 50 mg tablet 50 mg PO HS 08/17/23 09/25/23 History docusate sodium 100 mg capsule 100 mg PO BID PRN Constipation 09/25/23 09/25/23 History famotidine 20 mg tablet 20 mg PO QAM PRN acid reflux 09/25/23 09/25/23 History polyethylene glycol 3350 17 gram 17 g PO BID PRN Constipation 09/25/23 09/25/23 History oral powder packet (Miralax) Patient History Medical History (Updated 09/28/23 @ 15:32 by Jewel Mark MD) Nephrolithiasis and not yet delivered in third trimester History of nephrolithiasis Abdominal pain Right ovarian cyst Developmental dyslexia Depression with anxiety GERD (gastroesophageal reflux disease) Myofascial pain Chronic low back pain Herniated disc LUMBAR AND CERVICAL (FULL ROM) History of kidney stones Sacroiliac joint pain Anxiety Vitamin D deficiency HX, ? CURRENT STATUS Surgical History History of laparoscopy History of breast lump/mass excision (01/17/22) Excision of left breast mass. Dr. Jason 01/17/2022 S/P cystoscopy with ureteral stent placement 12/05/20 Dr. Lamont Ambrose- Cystoscopy, Left ureteroscopy, Laser lithotripsy, Stone basket extraction of stone, Left retrograde pyelogram, Left ureteral stent placement Nasal fracture Repair of nasal fracture Family History Mother No problems noted. Grandmother (Maternal) Lung cancer Oral cancer Other Cancer Hypertension Kidney stones Denies family history of Ovarian cancer Prostate cancer Heart disease Myocardial infarction Breast cancer Colorectal cancer Social History Smoking Status: Never smoker Tobacco Type: E-cigarettes / Vaping Second Hand Exposure: No; Do You Dip or Chew Tobacco: No; Tobacco Cessation Education Requested by Patient: No Hx Alcohol Use: Yes Alcohol type: beer Hx Substance Use: No Preferred Language: Eritrean Communication Ability: Effective Visual Impairment: No Limitations Hearing Ability: Normal Map Clerk Required: No Beliefs That Will Affect Care: None marital status: Single Current Living Situation: Other Current Living Situation Comment: boyfriend current occupational status: employed 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 @ [employer] How many Children do You have: 1 Feels Safe at Home: Yes Safety Concerns: Feels Safe At This Time Childhood Exposure to Second-Hand Smoke: No Diet: regular during the past year weight has: increased > 10 lbs Physical Activity Frequency: Daily Seatbelt Use: always Sunscreen Use: Yes Assistive Devices: None Review of Systems Constitutional: as per Subjective / HPI Physical Exam Constitutional: WD/WN, vitals as above well developed, well nourished and comfortable Gastrointestinal (Abdomen): normal bowel sounds, soft, nontender, no hepatosplenomegaly (gravid) Genitourinary: normal external appearance Speculum/Bimanual Exam: bladder normal to palpation (Tenderness on bladder) Manual OB Exam: + cervical dilation (0), + cervical effacement 10% and + station high OB Exam Monitor Tracing: + external uterine monitor used and + category I NST reactive, no contractions Results & Data Vital Signs (Past 12 Hours) Vital Signs Temp Pulse Resp BP BP Pulse Ox O2 Del Method 09/28/23 15:08 36.5 C 96 H 16 113/75 96 Room Air 09/28/23 07:53 36.7 C 100 H 18 104/68 97 Room Air Diagnostic Findings Lab Results 09/25/23 09/25/23 09/27/23 Range/Units 08:53 09:31 07:11 WBC 8.73 8.05 (4.8-10.8) K/ul RBC 3.85 L 3.76 L (4.20-5.40) M/uL Hgb 11.3 L 11.1 L (12.0-16.0) g/dl Hct 33.8 L 33.5 L (37.0-47.0) % MCV 87.8 89.1 (80.0-100.0) fL MCH 29.4 29.5 (25.0-34.0) pg MCHC 33.4 33.1 (32.0-36.0) g/dL RDW Std Deviation 42.8 43.3 (36.4-46.3) fL RDW Coeff of Baldo 13.5 13.4 (11.5-14.5) % Plt Count 233 215 (130-400) K/uL MPV 10.3 10.1 (9.4-12.4) fL Immature Gran % (Auto) 1.5 1.5 % Neut % (Auto) 67.5 63.4 % Lymph % (Auto) 16.7 24.1 % [place] % (Auto) 12.5 9.4 % Eos % (Auto) 1.6 1.2 % Baso % (Auto) 0.2 0.4 % Neut # (Auto) 5.89 5.10 (1.40-6.50) K/uL Lymph # (Auto) 1.46 1.94 (1.20-3.40) K/uL [place] # (Auto) 1.09 H 0.76 H (0.11-0.59) K/uL Eos # (Auto) 0.14 0.10 (0.00-0.50) K/uL Baso # (Auto) 0.02 0.03 (0.00-0.20) K/uL Immature Gran # (Auto) 0.13 0.12 (0.01-0.20) K/uL Sodium 137 136 (136-145) mmol/L Potassium 3.8 3.8 (3.5-5.1) mmol/L Chloride 107 105 (98-107) mmol/L Carbon Dioxide 22 25 (21-32) mmol/L Anion Gap 8 6 (3-11) BUN 7 6 (6-23) mg/dl Creatinine 0.50 L 0.49 L (0.6-1.2) mg/dl Est Cr Clr Drug Dosing 169.7 173.2 ml/min Est GFR ( Amer) > 150.0 > 150.0 ml/min Est GFR (Non-Af Amer) 130.8 131.7 ml/min BUN/Creatinine Ratio 14.0 12.2 (10-20) Glucose 92 94 (70-99(Fasting)) mg/dl Lactate (0.4-2.0) mmol/L Calcium 8.7 8.5 L (8.6-10.3) mg/dl Magnesium 1.5 L (1.7-2.4) mg/dl Total Bilirubin 0.3 (0.2-1.0) mg/dl Direct Bilirubin (0-0.2) mg/dl AST 12 L (13-39) U/L ALT 10 (7-52) U/L Alkaline Phosphatase 80 (34-104) U/L Total Protein 6.6 (6.0-8.3) gm/dl Albumin 3.4 (3.4-5.0) gm/dl Globulin 3.2 (2.5-4.0) gm/dl Albumin/Globulin Ratio 1.1 (0.9-2) Lipase 49 (11-82) U/L Urine Color Yellow Urine Appearance Clear (Clear) Urine pH 6.5 (4.5-7.5) Ur Specific [place] 1.012 (1.000-1.030) Urine Protein Negative (Negative) Urine Glucose (UA) Negative (Negative) Urine Ketones Negative (Negative) Urine Blood Trace H (Negative) Urine Nitrite Negative (Negative) Urine Bilirubin Negative (Negative) Urine Urobilinogen Negative (Negative) Ur Leukocyte Esterase 1+ H (Negative) Urine WBC (Auto) 5-10 H (0-5) /hpf Urine RBC (Auto) 0-4 (0-4) /hpf U Hyaline Cast (Auto) 1-5 (0-5) /lpf U Epithel Cells (Auto) >30 H (0-5) /lpf Urine Bacteria (Auto) Negative (Negative) Urine Test Positive (Negative) Blood Type O Positive Antibody Screen NEGATIVE 09/27/23 09/28/23 09/28/23 Range/Units Unknown 06:51 07:10 WBC 7.50 (4.8-10.8) K/ul RBC 3.60 L (4.20-5.40) M/uL Hgb 10.4 L (12.0-16.0) g/dl Hct 31.6 L (37.0-47.0) % MCV 87.8 (80.0-100.0) fL MCH 28.9 (25.0-34.0) pg MCHC 32.9 (32.0-36.0) g/dL RDW Std Deviation 42.3 (36.4-46.3) fL RDW Coeff of Baldo 13.3 (11.5-14.5) % Plt Count 198 (130-400) K/uL MPV 10.5 (9.4-12.4) fL Immature Gran % (Auto) 0.9 % Neut % (Auto) 64.0 % Lymph % (Auto) 24.7 % [place] % (Auto) 9.3 % Eos % (Auto) 0.8 % Baso % (Auto) 0.3 % Neut # (Auto) 4.80 (1.40-6.50) K/uL Lymph # (Auto) 1.85 (1.20-3.40) K/uL [place] # (Auto) 0.70 H (0.11-0.59) K/uL Eos # (Auto) 0.06 (0.00-0.50) K/uL Baso # (Auto) 0.02 (0.00-0.20) K/uL Immature Gran # (Auto) 0.07 (0.01-0.20) K/uL Sodium 136 (136-145) mmol/L Potassium 3.8 (3.5-5.1) mmol/L Chloride 106 (98-107) mmol/L Carbon Dioxide 25 (21-32) mmol/L Anion Gap 5 (3-11) BUN 7 (6-23) mg/dl Creatinine 0.43 L (0.6-1.2) mg/dl Est Cr Clr Drug Dosing 197.4 ml/min Est GFR ( Amer) > 150.0 ml/min Est GFR (Non-Af Amer) 137.4 ml/min BUN/Creatinine Ratio 16.3 (10-20) Glucose 85 (70-99(Fasting)) mg/dl Lactate (0.4-2.0) mmol/L Calcium 8.2 L (8.6-10.3) mg/dl Magnesium 1.5 L (1.7-2.4) mg/dl Total Bilirubin 0.3 (0.2-1.0) mg/dl Direct Bilirubin 0.1 (0-0.2) mg/dl AST 14 (13-39) U/L ALT 10 (7-52) U/L Alkaline Phosphatase 66 (34-104) U/L Total Protein 5.6 L (6.0-8.3) gm/dl Albumin 2.9 L (3.4-5.0) gm/dl Globulin (2.5-4.0) gm/dl Albumin/Globulin Ratio (0.9-2) Lipase (11-82) U/L Urine Color Dark Yellow Urine Appearance Clear (Clear) Urine pH 6.0 (4.5-7.5) Ur Specific [place] 1.009 (1.000-1.030) Urine Protein Negative (Negative) Urine Glucose (UA) Negative (Negative) Urine Ketones Negative (Negative) Urine Blood Negative (Negative) Urine Nitrite Positive A (Negative) Urine Bilirubin Negative (Negative) Urine Urobilinogen Negative (Negative) Ur Leukocyte Esterase 1+ H (Negative) Urine WBC (Auto) 5-10 H (0-5) /hpf Urine RBC (Auto) 0-4 (0-4) /hpf U Hyaline Cast (Auto) 1-5 (0-5) /lpf U Epithel Cells (Auto) 20-30 H (0-5) /lpf Urine Bacteria (Auto) Negative (Negative) Urine Test (Negative) Blood Type Antibody Screen 09/28/23 Range/Units 13:13 WBC (4.8-10.8) K/ul RBC (4.20-5.40) M/uL Hgb (12.0-16.0) g/dl Hct (37.0-47.0) % MCV (80.0-100.0) fL MCH (25.0-34.0) pg MCHC (32.0-36.0) g/dL RDW Std Deviation (36.4-46.3) fL RDW Coeff of Baldo (11.5-14.5) % Plt Count (130-400) K/uL MPV (9.4-12.4) fL Immature Gran % (Auto) % Neut % (Auto) % Lymph % (Auto) % [place] % (Auto) % Eos % (Auto) % Baso % (Auto) % Neut # (Auto) (1.40-6.50) K/uL Lymph # (Auto) (1.20-3.40) K/uL [place] # (Auto) (0.11-0.59) K/uL Eos # (Auto) (0.00-0.50) K/uL Baso # (Auto) (0.00-0.20) K/uL Immature Gran # (Auto) (0.01-0.20) K/uL Sodium (136-145) mmol/L Potassium (3.5-5.1) mmol/L Chloride (98-107) mmol/L Carbon Dioxide (21-32) mmol/L Anion Gap (3-11) BUN (6-23) mg/dl Creatinine (0.6-1.2) mg/dl Est Cr Clr Drug Dosing ml/min Est GFR ( Amer) ml/min Est GFR (Non-Af Amer) ml/min BUN/Creatinine Ratio (10-20) Glucose (70-99(Fasting)) mg/dl Lactate 0.3 L (0.4-2.0) mmol/L Calcium (8.6-10.3) mg/dl Magnesium (1.7-2.4) mg/dl Total Bilirubin (0.2-1.0) mg/dl Direct Bilirubin (0-0.2) mg/dl AST (13-39) U/L ALT (7-52) U/L Alkaline Phosphatase (34-104) U/L Total Protein (6.0-8.3) gm/dl Albumin (3.4-5.0) gm/dl Globulin (2.5-4.0) gm/dl Albumin/Globulin Ratio (0.9-2) Lipase (11-82) U/L Urine Color Urine Appearance (Clear) Urine pH (4.5-7.5) Ur Specific [place] (1.000-1.030) Urine Protein (Negative) Urine Glucose (UA) (Negative) Urine Ketones (Negative) Urine Blood (Negative) Urine Nitrite (Negative) Urine Bilirubin (Negative) Urine Urobilinogen (Negative) Ur Leukocyte Esterase (Negative) Urine WBC (Auto) (0-5) /hpf Urine RBC (Auto) (0-4) /hpf U Hyaline Cast (Auto) (0-5) /lpf U Epithel Cells (Auto) (0-5) /lpf Urine Bacteria (Auto) (Negative) Urine Test (Negative) Blood Type Antibody Screen (2) Depression Depression Type: major depressive disorder Major depression recurrence: unspecified whether recurrent Major depression episode severity: unspecified (4) Kidney stone complicating Trimester: third trimester Qualified Code(s): O26.833 - related renal disease, third trimester; N20.0 - Calculus of kidney
--- NOTE | 2023-09-28 17:12 | XRay Report ---
SINGLE VIEW CHEST CLINICAL HISTORY: Tachycardia. Palpitations FINDINGS: An AP, portable, upright chest radiograph is compared to study dated 09/24/2022. The cardio mediastinal silhouette is unremarkable. The lungs and pleural spaces are clear. No pneumothorax is se en. The bony thorax is grossly intact. IMPRESSION: No active disease in the chest. ACT 112: Negative or not required by law. Electronically signed by: Lawrence Olivier M.D. 09/28/2023 5:10 PM
[2023-09-28] MEDS: cephALEXin 500 MG CAP PO SCH ×2 (17:20→20:26)
[2023-09-28] MEDS: traZODone HCL 50 MG TAB PO SCH (20:28)
[2023-09-29] MEDS: HYDROmorphone INJ 0.5 MG/0.5 ML SYR IV PRN ×9 (02:20→23:03)
[2023-09-29] MEDS: oxyCODONE HCL IR 5 MG TAB (IMMEDIATE RELEASE) PO PRN ×2 (04:29→08:33)
[2023-09-29 05:34] LABS: Basophils # (auto) 0.03 K/uL (0.00-0.20); Basophils % (auto) 0.4 %; Eosinophils # (auto) 0.07 K/uL (0.00-0.50); Immature Granulocytes % (auto) 1.4 %; Lymphocytes # (auto) 1.79 K/uL (1.20-3.40); Lymphocytes % (auto) 24.4 %; Mean Corpuscular Hemoglobin 29.8 pg (25.0-34.0); Mean Corpuscular Hgb Conc 33.3 g/dL (32.0-36.0); Mean Corpuscular Volume 89.4 fL (80.0-100.0); Mean Platelet Volume 10.6 fL (9.4-12.4); Monocytes # (auto) 0.78 K/uL (0.11-0.59); Monocytes % (auto) 10.6 %; Neutrophils # (auto) 4.57 K/uL (1.40-6.50); Neutrophils % (auto) 62.2 %; Platelet Count 215 K/uL (130-400); RDW Coefficient of Variation 13.4 % (11.5-14.5); RDW Standard Deviation 43.7 fL (36.4-46.3); Red Blood Count 3.69 M/uL (4.20-5.40); White Blood Count 7.34 K/ul (4.8-10.8)
[2023-09-29 05:50] LABS: Alanine Aminotransferase 13 U/L (7-52); Albumin Globulin Ratio 1.1 (0.9-2); Albumin Level 3.2 gm/dl (3.4-5.0); Alkaline Phosphatase 72 U/L (34-104); Anion Gap 5 (3-11); Aspartate Aminotransferase 16 U/L (13-39); BUN Creatinine Ratio 12.8 (10-20); Bilirubin,Total 0.3 mg/dl (0.2-1.0); Blood Urea Nitrogen 6 mg/dl (6-23); Calcium 8.6 mg/dl (8.6-10.3); Carbon Dioxide 26 mmol/L (21-32); Chloride 105 mmol/L (98-107); Creatinine Clr Calc Pharmacy 183.7 ml/min; Est GFR (African American) > 150.0 ml/min; Est GFR (Non-African American) 133.5 ml/min; Globulin 2.9 gm/dl (2.5-4.0); Glucose 89 mg/dl (70-99(Fasting)); Magnesium 1.6 mg/dl (1.7-2.4); Potassium 3.8 mmol/L (3.5-5.1); Sodium 136 mmol/L (136-145); Total Protein 6.1 gm/dl (6.0-8.3)
--- NOTE | 2023-09-29 07:39 | Electrocardiogram Report ---
Test Reason : Blood Pressure : / mmHG Vent. Rate : 125 BPM Atrial Rate : 125 BPM P-R Int : 116 ms QRS Dur : 068 ms QT Int : 302 ms P-R-T Axes : 000 054 -15 degrees QTc Int : 435 ms Sinus tachycardia Low voltage QRS Nonspecific T wave abnormality Abnormal ECG When compared with ECG of 11-JUL-2023 08:31, Nonspecific T wave abnormality, worse in Inferior leads Nonspecific T wave abnormality now evident in Lateral leads Confirmed by Efren Tello ([id number]) on 09/29/2023 7:39:33 AM Referred By: REFERRED SELF Confirmed By:Efren Tello
--- NOTE | 2023-09-29 08:01 | Hospitalist Progress Note ---
Date of Service September 29, 2023 Assessment & Plan (1) History of nephrolithiasis: Plan: Recurrent and persistent n/v x2 days. History of nephrolithiasis, renal colic Pt passed a small stone while in the ER. Continues to have spasm/pain and nausea with intermittent clear/frothy emesis. Recent admission for lithotripsy of 6 mm L uretal calculus with transfer to [place] for lithotripsy. [facility] discharge summary reviewed. * On arrival to their facility she was treated conservatively with Flomax, IV, and Dilaudid MACHINE CEMENTER. This was discontinued on hospital day 3 and reinitiated on day 4 due to inadequate pain control. She received a course of betamethasone on 08/28 and 08/29 in anticipation of urologic procedure in the event of labor was triggered; 08/30 patient had urologic intervention with left ureteroscopy and left laser lithotripsy. Remained for 2 additional days for pain control and was discharged in stable condition. Daily heart tracings were normal. During prior admission she had a white count of 8K, and showed no evidence of either CANDY or UTI during admission. On admission, CTA/P: 1. Nonobstructing bilateral nephrolithiasis. No ureteral calculi or hydronephrosis. 2. Intrauterine gestation in cephalic positioning. 3. No bowel obstruction or bowel wall thickening.4. Normal appendix. No signs of CANDY, no signs of obstruction noted above. Admitted for n/v control, now pain control as n/v improved (reports nausea w/ uncontrolled pain) Tylenol first line, Pyridium second-line both category B. Recommend minimal doses of narcotics with goal of pain tolerable. Pt had required Dilaudid MACHINE CEMENTER in [facility]; distal stone is no loner present. Hydromorphone 0.25 mg every 6 hours ordered as needed for breakthrough only. Discussed risks of narcotic use during /Category. UA w/o bacteria but continued burning w/ urination. ?continued passing of stone. Did pass larger stone this past week on admission (in cup i the room) Renal US obtained, NEGATIVE for obstruction/hydro at present Pain control -- utilized PO Oxycodone/IV dilaudid 0.25mg however became tachycardic and increased pain, concerns for pre-term labor vs other, decision to move to monitored bed/increase pain control, consultation w/ pain management and ELECTRICAL INSTALLATION SUPERVISOR undertaken Daily NST per ELECTRICAL INSTALLATION SUPERVISOR, reassuring Pain management w/o recs for changes Discussed likely high metabolic rate w/ /need for medications Repeat UA w/o bacteria for burning however asked to send for culture. F/u cx, currently pending Started PO Keflex empirically as safe in while cx pending, f/u cx Placed on continued IVF w/ NS @ 80cc/hr for dehydration w/ improvement in dehydration on exam and HR, urine still darker in color and will conitnue for now. Pushing fluids, encouraged avoidance of poweraide/mountain dew given hx stones/multiple and likely continued formation If urine appearing clearer this evening/keeping up w/ PO intake can consider decreasing rate Discussed w/ supervising provider and changed PO oxycodone to Dilaudid 1mg q4h and will monitor Of note, 3 smaller fragments/stones passed this morning, 09/29. Continues on PO flomax daily (had been getting at [facility]) Continue monitoring on telemetry (2) and not yet delivered in second trimester: Plan: 28-year-old female DD 11/20/2023 at 28+6 wks Daily tones ordered, follows [facility] ELECTRICAL INSTALLATION SUPERVISOR -- consult placed as above. Daily NST (3) Symptomatic PVCs: Plan: Increased reports 09/28 w/ rates to 130-140s, suspected 2nd to pain/dehydration. IVF provided/pain regimen increased as above Continues on metoprolol daily Improvement/resolution in symptoms Per patient, had been getting ECHO w/ Pneumoflex Systemser cards to be done outpatient, ordered and done this morning and will monitor. Continue metoprolol 12.5mg daily for now (4) Renal colic on left side: Plan: as above Improving (5) Nausea & vomiting: Plan: antiemetics prn. no emesis reported today (6) Constipation: Plan: bowel regimen, ambulation encouraged +BM 09/27 (7) Tachycardia: Plan: tachycardic to 120-130s AM 09/28. EKG obtained w/ sinus tachy to 125bpm, low voltage QRS, nonspecific T wave abn. IV mag ordered for mag 1.5. No chest pain but reporting palpitations. Increased pain control as above, low 100s Hx symptomatic PVCs, on metoprolol 12.5mg daily IMPROVED w/ ABOVE. Continued monitoring on telemetry ECHO pending as above Additional 1gm IV mag ordered Plan DVT prophylaxis: Ambulation encouraged, SCDs monitor response w/ PO dilaudid/IVF overnight. Dc pending adequate pain control on oral and sufficient PO intake Admission and Anticipated Discharge Date Admission Date: September 28, 2023 Supervising Physician Co-Signing Physician Notes The patient was not seen by me. The chart was reviewed. Case discussed with LION Pineda. Agree with assessment and plan Subjective eval this morning, much more comfortable. had some increased pain this morning and pressure and had to urinate and passed three smaller stones (visualized via picture on patient phone). Feeling better now. Urine still darker in color but improving. Trying to push more fluids -- had vitamin water at bedside -- lots of calcium. To avoid. Asked kitchen for flavor packets to her water. Also discussed heavy mountain dew at baseline/avoidance given stones. Reports IV/PO pain control effective. IV to get breakthrough and PO for longer lasting effects. Discussed increasing PO Oxycodone vs PO DIlaudid and will discuss w/ supervising provider. Do not feel comfortable dc while using IV medication at present. Appetite ok. Palpitations/tingling sensation resolved. No fever/chills. Urine cx pending/empiric keflex for now. ECHO done this morning but not read. Discussed possible dc tomorrow vs Sunday pending pain control. Physical Exam 2 Physical Exam: 28yo F sitting up in bed, just medicated for pain and appearing much improved from yesterday morning head atraumatic, normocephalic, mm improved, trachea midline resp; cta, no w/c/r, on room air 100% CV: RRR (not further tachycardia on monitor), faint systolic murmur, no pitting edema/calf tenderness GI: +BS, uterine fundus palpable, no masses, soft otherwise LLQ/pelvic tenderness no L CVA tenderness reported Psych: AOx3, cooperative Results & Data Results & Data Vital Signs (Past 12 Hours) Vital Signs Temp Pulse Pulse Resp BP BP Pulse Ox 09/29/23 07:51 36.7 C 86 17 120/71 100 09/29/23 03:11 36.7 C 109 H 18 115/71 98 09/28/23 23:22 36.6 C 92 H 18 107/73 98 09/28/23 21:58 99 H 09/28/23 20:15 36.7 C 99 H 16 126/67 100 O2 Del Method 09/29/23 07:51 Room Air 09/29/23 03:11 Room Air 09/28/23 23:22 Room Air 09/28/23 21:58 09/28/23 20:15 Room Air Laboratory Results 09/29/23 04:35 09/29/23 04:35 Mag 1.6 Urine culture pending PG Care Time/CCT Total # of Minutes Spent Total Time Spent with Patient: Total time spent is greater than 50% in coordination of care (as documented) at patient's floor/unit and/or counseling patient: Coding Level of Care Code 78706 SUB INP/OBS CARE 3/50MIN Diagnoses History of nephrolithiasis Z87.442 and not yet delivered in second trimester Z34.92 Symptomatic PVCs I49.3 Renal colic on left side N23 Nausea & vomiting R11.2 Vomiting type: unspecified Constipation K59.00 Tachycardia R00.0 (5) Nausea & vomiting Vomiting type: unspecified Qualified Code(s): R11.2 - Nausea with vomiting, unspecified
[2023-09-29] MEDS: DOCUSATE SODIUM 100 MG CAP PO SCH ×2 (08:33→21:00)
[2023-09-29] MEDS: cephALEXin 500 MG CAP PO SCH ×4 (08:35→20:35)
[2023-09-29] MEDS: PRENATAL VITAMIN 1 TAB PO SCH ×2 (08:36→13:48)
[2023-09-29] MEDS: PYRIDOXINE HCL 50 MG TAB PO SCH (08:37)
[2023-09-29] MEDS: PHENAZOPYRIDINE HCL 200 MG TAB PO PRN ×2 (08:37→20:35)
[2023-09-29] MEDS: TAMSULOSIN HCL 0.4 MG CAP PO SCH (08:37)
[2023-09-29] MEDS: METOPROLOL SUCC 25MG EXT REL TAB PO SCH (08:37)
[2023-09-29] MEDS: FERROUS SULFATE 325 MG TAB PO SCH (08:37)
[2023-09-29] MEDS: buPROPion XL 300 MG TABCR PO SCH (08:38)
[2023-09-29] MEDS: SODIUM CHLORIDE 0.9% 1,000 ML IV SCH ×2 (08:39→23:33)
[2023-09-29] MEDS ORDERED: MAGNESIUM SULFATE / D5W 1 GM/100 ML BAG IV ONE (09:58)
[2023-09-29] MEDS: ONDANSETRON INJ 2 MG/ML 2 ML VIAL IV PRN (13:13)
[2023-09-29] MEDS: HYDROmorphone HCL 2 MG TAB PO PRN ×3 (13:46→22:22)
[2023-09-29] MEDS: FAMOTIDINE 20 MG TAB PO PRN (13:46)
[2023-09-29] MEDS ORDERED: METOPROLOL SUCC 25MG EXT REL TAB PO PRN (17:50)
[2023-09-29] MEDS: traZODone HCL 50 MG TAB PO SCH (20:33)
[2023-09-30] MEDS: HYDROmorphone HCL 2 MG TAB PO PRN ×2 (04:13→08:10)
[2023-09-30] MEDS: HYDROmorphone INJ 0.5 MG/0.5 ML SYR IV PRN ×8 (06:14→22:33)
[2023-09-30] MEDS: TAMSULOSIN HCL 0.4 MG CAP PO SCH (08:11)
[2023-09-30] MEDS: PYRIDOXINE HCL 50 MG TAB PO SCH (08:11)
[2023-09-30] MEDS: cephALEXin 500 MG CAP PO SCH ×4 (08:11→21:24)
[2023-09-30] MEDS: buPROPion XL 300 MG TABCR PO SCH (08:12)
[2023-09-30] MEDS: FERROUS SULFATE 325 MG TAB PO SCH (08:12)
[2023-09-30] MEDS: METOPROLOL SUCC 25MG EXT REL TAB PO SCH (08:12)
[2023-09-30] MEDS: PRENATAL VITAMIN 1 TAB PO SCH (08:13)
--- NOTE | 2023-09-30 08:18 | Hospitalist Progress Note ---
Date of Service September 30, 2023 Assessment & Plan (1) History of nephrolithiasis: Plan: Recurrent and persistent n/v x2 days. History of nephrolithiasis, renal colic Recent admission for lithotripsy of 6 mm L uretal calculus with transfer to [facility] [place] [facility]. 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 This was discontinued on hospital day 3 and reinitiated on day 4 due to inadequate pain control. She received a course of betamethasone on 08/28 and 08/29 in anticipation of urologic procedure in the event of labor was triggered; 08/30 patient had urologic intervention with left ureteroscopy and left laser lithotripsy. Remained for 2 additional days for pain control and was discharged in stable condition. Daily heart tracings were normal. During prior admission she had a white count of 8K, and showed no evidence of either CANDY or UTI during admission. CTA/P w/ nonobstructing bilateral nephrolithiasis. No ureteral calculi or hydronephrosis Pt passed a small stone while in the ER. Continued to have spasm/pain and nausea with intermittent clear/frothy emesis. Pain control, supportive care Pt had required Dilaudid VISCOSE DEPARTMENT WORKER [place] [facility]; distal stone is no loner present. Passed 3 additional smaller stones AM 09/29 Renal US obtained, NEGATIVE for obstruction/hydro at present Urology consulted, no intervention at present. Continue Pyridium for spasm pain UA w/o bacteria but continued burning w/ urination. ?continued passing of stones Urine cx obtained, placed on Keflex PO for now and urine cx pin-point growth re- incubating and f/u required but will continue for now given such Continued IVF, now decreasing rate to 40cc/hr and monitoring PO intake (improving) Flomax daily (had been getting at [facility] as well) Pain control w/ IV/PO Dilaudid but discussed w/ patient and changed to Oxycodone 10mg prn as [place] [facility] [place]/ good relief (she had been getting 5mg PO prn here) Monitoring overnight -- see below about PVCs/palpitations and gestation ?Dc tomorrow vs further management pending ability to wean off IV pain medication and stable on PO control/PO intake Renal function stable in 0.44 Monitor labs in AM (2) and not yet delivered in second trimester: Plan: 28-year-old female DD 11/20/2023 at 28+6 wks Daily tones ordered, follows [facility] OPEN CUT EXAMINER -- consult placed as above. Daily NST per OPEN CUT EXAMINER, reassuring vitamin/Fe replacement ordered Pain management w/o recs for changes (3) Symptomatic PVCs: Plan: Increased reports 09/28 w/ rates to 130-140s, suspected 2nd to pain/dehydration and improvement w/ pain control however reported increased palpitatoins last evening w/ elevated HR and additoinal metoprolol provided w/ relief ECHO w/ normal EF, no wma Decision to increase baseline metoprolol to 25mg daily and will monitor for any further symptoms/need for increased dose (4) Renal colic on left side: Plan: as above Improving/then worsening, continued passage of stones. Consider repeat KUB in AM? (5) Nausea & vomiting: Plan: antiemetics prn. no further emesis and on regular diet (6) Constipation: Plan: bowel regimen, ambulation encouraged (has been walking the halls) +BM 09/27 and continues to pass gas (not unusual for her) monitor (7) Tachycardia: Plan: Hx symptomatic PVCs, on metoprolol 12.5mg daily Tachycardic to 120-130s AM 09/28. EKG obtained w/ sinus tachy to 125bpm, low voltage QRS, nonspecific T wave abn. IV mag ordered for mag 1.5 No chest pain but reporting palpitations. Increased pain control as above, low 100s IMPROVED w/ ABOVE. Continued monitoring on telemetry Plan DVT prophylaxis: Ambulation encouraged, SCDs changed to PO oxycodone 10mg tablets and hopefully able to obtain better baseline pain control Admission and Anticipated Discharge Date Admission Date: September 28, 2023 Supervising Physician Co-Signing Physician Notes The patient was not seen by me. The chart was reviewed. Case discussed with LION Pineda. Agree with assessment and plan Subjective Eval this morning, got showered, feeling a little better but continued bladder/L flank/groin discomfort. Additional fragments in urine, has been using the pyridium. Discussed concerns about withdrawal possibly contributing if having to use terminal manager, but reported no issues after [place] [facility] She notes she was on PO pain medications day of dc but IV day prior. She notes they sent her on 10mg tablets of oxycodone and discussed the dilaudid not as effective as the oxycodone and will switch back and make 10mg tablets available. Appears better hydrated today and will decrease IVF. Improvement w/ palpitations w/ adjustment to her metrolol and will continue to monitor on telemetry. Questions/concerns addressed at this time. Physical Exam 2 Physical Exam: 28yo F sitting up in bed, just got back from taking a shower, NAD but mildly uncomfortable L groin/lower pubic region head atraumatic, normocephalic, mm improved and no further dehydration, trachea midline resp; cta, no w/c/r, on room air 94% CV: RRR (not further tachycardia on monitor), faint systolic murmur, no pitting edema/calf tenderness GI: +BS, uterine fundus palpable, no masses, soft otherwise LLQ/pelvic tenderness mild L CVA tenderness Psych: AOx3, cooperative Results & Data Results & Data Vital Signs (Past 12 Hours) Vital Signs Temp Pulse Pulse Resp BP BP Pulse Ox 09/30/23 07:51 36.7 C 88 18 113/73 98 09/30/23 04:06 36.6 C 83 18 118/66 97 09/29/23 23:31 36.6 C 91 H 18 120/67 97 09/29/23 22:20 94 H 09/29/23 21:26 36.5 C 103 H 18 107/74 97 O2 Del Method 09/30/23 07:51 Room Air 09/30/23 04:06 Room Air 09/29/23 23:31 Room Air 09/29/23 22:20 09/29/23 21:26 Room Air Laboratory Results 09/30/23 08:38 09/30/23 08:38 PG Care Time/CCT Total # of Minutes Spent Total Time Spent with Patient: Total time spent is greater than 50% in coordination of care (as documented) at patient's floor/unit and/or counseling patient: Coding Level of Care Code 63929 SUB INP/OBS CARE 3/50MIN Diagnoses History of nephrolithiasis Z87.442 and not yet delivered in second trimester Z34.92 Symptomatic PVCs I49.3 Renal colic on left side N23 Nausea & vomiting R11.2 Vomiting type: unspecified Constipation K59.00 Tachycardia R00.0 (5) Nausea & vomiting Vomiting type: unspecified Qualified Code(s): R11.2 - Nausea with vomiting, unspecified
[2023-09-30] MEDS ORDERED: METOPROLOL SUCC 25MG EXT REL TAB PO ONE (09:00)
[2023-09-30 09:27] LABS: Hematocrit (blood only) 33.8 % (37.0-47.0); Hemoglobin 11.4 g/dl (12.0-16.0); Mean Corpuscular Hemoglobin 29.8 pg (25.0-34.0); Mean Corpuscular Hgb Conc 33.7 g/dL (32.0-36.0); Mean Corpuscular Volume 88.5 fL (80.0-100.0); Mean Platelet Volume 10.3 fL (9.4-12.4); Platelet Count 224 K/uL (130-400); RDW Coefficient of Variation 13.6 % (11.5-14.5); RDW Standard Deviation 43.5 fL (36.4-46.3); Red Blood Count 3.82 M/uL (4.20-5.40); White Blood Count 6.91 K/ul (4.8-10.8)
[2023-09-30 09:33] LABS: Anion Gap 7 (3-11); BUN Creatinine Ratio 15.9 (10-20); Blood Urea Nitrogen 7 mg/dl (6-23); Calcium 8.8 mg/dl (8.6-10.3); Carbon Dioxide 23 mmol/L (21-32); Chloride 105 mmol/L (98-107); Creatinine Clr Calc Pharmacy 201.1 ml/min; Est GFR (African American) > 150.0 ml/min; Est GFR (Non-African American) 136.4 ml/min; Glucose 93 mg/dl (70-99(Fasting)); Magnesium 1.5 mg/dl (1.7-2.4); Sodium 135 mmol/L (136-145)
[2023-09-30] MEDS ORDERED: MAGNESIUM SULFATE / D5W 1 GM/100 ML BAG IV ONE (10:20)
[2023-09-30] MEDS: oxyCODONE HCL IR 5 MG TAB (IMMEDIATE RELEASE) PO PRN ×4 (10:50→21:23)
[2023-09-30] MEDS: DOCUSATE SODIUM 100 MG CAP PO SCH ×2 (10:50→21:24)
[2023-09-30] MEDS: FAMOTIDINE 20 MG TAB PO PRN (10:51)
[2023-09-30] MEDS: SODIUM CHLORIDE 0.9% 1,000 ML IV SCH (13:24)
[2023-09-30] MEDS: ONDANSETRON INJ 2 MG/ML 2 ML VIAL IV PRN ×2 (18:01→22:33)
--- NOTE | 2023-09-30 18:24 | Communication Note ---
Date of Service: September 30, 2023 Patient developed RUQ discomfort this evening, thought was related to stone. Associated nausea/vomiting. CTAP on admission no mention of cholelithiasis but does mention distended GB. LFTs prior wnl but will add to AM labs. RUQ ordered for further evaluation (will need to be NPO for several hours pending availability for testing) but not tachycardic/febile, VSS stable otherwise. Relief w/ IV pepcid/zofran and pain control at present time. WIll increase IVF back to 80cc/hr for now and change diet to low fat.
[2023-09-30] MEDS: LACTATED RINGER'S 1,000 ML IV SCH (20:19)
[2023-09-30] MEDS: traZODone HCL 50 MG TAB PO SCH (21:24)
[2023-10-01] MEDS: HYDROmorphone INJ 0.5 MG/0.5 ML SYR IV PRN ×9 (00:51→23:22)
[2023-10-01] MEDS ORDERED: PROCHLORPERAZINE 10 MG in SYRINGE 8 ML IV ONE (01:30)
[2023-10-01 01:49] LABS: Appearance Urine Cloudy (Clear); Bacteria Urine Automated 2+ (Negative); Bilirubin Urine Negative (Negative); Blood Urine Negative (Negative); Color Urine Yellow; Epithelial Cell Urine Auto >30 /lpf (0-5); Glucose Urine UA Negative (Negative); Ketones Urine Negative (Negative); Leukocyte Esterase Urine 2+ (Negative); Nitrite Urine Negative (Negative); Protein Urine Negative (Negative); RBC Urine Automated 0-4 /hpf (0-4); Urobilinogen Urine Negative (Negative); WBC Urine Automated >30 /hpf (0-5); pH Urine 6.5 (4.5-7.5)
[2023-10-01 05:42] LABS: Alanine Aminotransferase 13 U/L (7-52); Albumin Level 3.2 gm/dl (3.4-5.0); Alkaline Phosphatase 77 U/L (34-104); Anion Gap 4 (3-11); Aspartate Aminotransferase 16 U/L (13-39); Bilirubin,Total 0.3 mg/dl (0.2-1.0); Blood Urea Nitrogen 8 mg/dl (6-23); Calcium 8.5 mg/dl (8.6-10.3); Carbon Dioxide 27 mmol/L (21-32); Chloride 104 mmol/L (98-107); Creatinine Clr Calc Pharmacy 187.4 ml/min; Est GFR (African American) > 150.0 ml/min; Est GFR (Non-African American) 133.5 ml/min; Globulin 3.1 gm/dl (2.5-4.0); Glucose 80 mg/dl (70-99(Fasting)); Lipase 54 U/L (11-82); Magnesium 1.6 mg/dl (1.7-2.4); Potassium 3.7 mmol/L (3.5-5.1); Sodium 135 mmol/L (136-145); Total Protein 6.3 gm/dl (6.0-8.3)
[2023-10-01 05:44] LABS: Basophils # (auto) 0.03 K/uL (0.00-0.20); Basophils % (auto) 0.4 %; Eosinophils # (auto) 0.02 K/uL (0.00-0.50); Eosinophils % (auto) 0.3 %; Hematocrit (blood only) 32.7 % (37.0-47.0); Hemoglobin 10.8 g/dl (12.0-16.0); Immature Granulocytes % (auto) 1.4 %; Lymphocytes # (auto) 1.92 K/uL (1.20-3.40); Lymphocytes % (auto) 27.3 %; Mean Corpuscular Hemoglobin 29.3 pg (25.0-34.0); Mean Corpuscular Volume 88.9 fL (80.0-100.0); Mean Platelet Volume 10.5 fL (9.4-12.4); Monocytes # (auto) 0.89 K/uL (0.11-0.59); Monocytes % (auto) 12.7 %; Neutrophils # (auto) 4.07 K/uL (1.40-6.50); Neutrophils % (auto) 57.9 %; Platelet Count 210 K/uL (130-400); RDW Coefficient of Variation 13.5 % (11.5-14.5); RDW Standard Deviation 43.7 fL (36.4-46.3); Red Blood Count 3.68 M/uL (4.20-5.40); White Blood Count 7.03 K/ul (4.8-10.8)
[2023-10-01 05:50] LABS: INR 0.9 (0.9-1.1); Prothrombin Time 10.2 Seconds (9.0-12.0)
--- NOTE | 2023-10-01 06:36 | Ultrasound Report ---
US gallbladder CLINICAL HISTORY: ruq discomfort, gb distension on CTAP, n/v COMPARISON STUDY: CT of the abdomen and pelvis September 25, 2023. FINDINGS: Liver is sonographically normal. There is no biliary ductal dilatation. The common bile chayito t measures 3 mm in caliber. There are no gallstones. No gallbladder wall thickening was present. Sono graphic Mendoza sign could not be assessed for in this patient. Pancreatic body is normal. Head and ta il are partially obscured. There is no right hydronephrosis. Several right renal calculi measure up t o 3 mm. IMPRESSION: 1. No gallstones. No biliary ductal dilatation. No evidence for acute cholecystitis. 2. Right nephrolithiasis. ACT 112: Negative or not required by law. Electronically signed by: Nader Pérez M.D. 10/01/2023 6:33 AM
[2023-10-01] MEDS: cephALEXin 500 MG CAP PO SCH (07:34)
[2023-10-01] MEDS: oxyCODONE HCL IR 5 MG TAB (IMMEDIATE RELEASE) PO PRN ×4 (07:35→23:22)
[2023-10-01] MEDS: buPROPion XL 300 MG TABCR PO SCH (07:36)
[2023-10-01] MEDS: METOPROLOL SUCC 25MG EXT REL TAB PO SCH (07:36)
[2023-10-01] MEDS: FAMOTIDINE 20 MG TAB PO PRN (07:36)
[2023-10-01] MEDS: PRENATAL VITAMIN 1 TAB PO SCH (07:36)
[2023-10-01] MEDS: TAMSULOSIN HCL 0.4 MG CAP PO SCH (07:37)
[2023-10-01] MEDS: FERROUS SULFATE 325 MG TAB PO SCH (07:37)
[2023-10-01] MEDS: PYRIDOXINE HCL 50 MG TAB PO SCH (07:37)
[2023-10-01] MEDS: DOCUSATE SODIUM 100 MG CAP PO SCH ×2 (07:38→22:28)
[2023-10-01] MEDS: LACTATED RINGER'S 1,000 ML IV SCH (07:44)
--- NOTE | 2023-10-01 08:24 | Hospitalist Progress Note ---
Date of Service October 01, 2023 Assessment & Plan (1) History of nephrolithiasis: Plan: Recurrent and persistent n/v x2 days. History of nephrolithiasis, renal colic Recent admission for lithotripsy of 6 mm L uretal calculus with transfer to [facility] for lithotripsy. [facility]. 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 This was discontinued on hospital day 3 and reinitiated on day 4 due to inadequate pain control. She received a course of betamethasone on 08/28 and 08/29 in anticipation of urologic procedure in the event of labor was triggered; 08/30 patient had urologic intervention with left ureteroscopy and left laser lithotripsy. Remained for 2 additional days for pain control and was discharged in stable condition. Daily heart tracings were normal. During prior admission she had a white count of 8K, and showed no evidence of either CANDY or UTI during admission. CTA/P w/ nonobstructing bilateral nephrolithiasis. No ureteral calculi or hydronephrosis Pt passed a small stone while in the ER. 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 Passed 3 additional smaller stones AM 09/29 Renal US obtained, NEGATIVE for obstruction/hydro at present Urology consulted, no intervention at present. Continue Pyridium for spasm pain. If became septic/febrile, rec for transfer UA w/o bacteria but continued burning w/ urination. ?continued passing of stones Urine cx obtained, placed on Keflex PO for now and urine cx w/ mixed tom/no growth however she reported increased n/v/abdominal discomfort and repeat UA now w/ + bacteria Discussed w/ OBGYN Dr Marquis, prior recs for tube placement (was tx to [facility], no nephrostomy tubes placed), and will give IV Ceftriaxone for today and convert to PO Macrobid 100mg BID x 7 days pending status in AM/PO intake Monitor repeat urine cx Kidney function stable at present Continue IVF but changed to NS given interaction w/ Rocephin Antiemetics prn Pain control increased IV Dilaudid for now 1mg q2h prn, PO available 10mg as dc [place] [facility] on w/ good relief Monitor on repeat exam (2) Nausea & vomiting: Plan: antiemetics prn. no further emesis and on regular diet Patient developed RUQ discomfort evening 09/30, thought was related to stone. Associated nausea/vomiting. CTAP on admission no mention of cholelithiasis but does mention distended GB. LFTs prior wnl but will add to AM labs. RUQ ordered for further evaluation (will need to be NPO for several hours pending availability for testing) but not tachycardic/febile, VSS stable otherwise. Relief w/ IV pepcid/zofran and pain control at present time. RUQ negative for acute thierry. LFTs wnl Antiemetic prn w/ zofran (noting got dose compazine overnight, felt terrible with such) (3) and not yet delivered in second trimester: Plan: 28-year-old female DD 11/20/2023 at 28+6 wks Daily tones ordered, follows [facility] SCREEN DOOR MAKER -- consult placed as above. Daily NST per SCREEN DOOR MAKER, reassuring vitamin/Fe replacement ordered Pain management w/o recs for changes (4) Symptomatic PVCs: Plan: Increased reports 09/28 w/ rates to 130-140s, suspected 2nd to pain/dehydration and improvement w/ pain control however reported increased palpitations prior evening w/ elevated HR and additional metoprolol provided w/ relief ECHO w/ normal EF, no wma Decision to increase baseline metoprolol to 25mg daily and reported improvement in symptoms and HR improved and will montior (5) Renal colic on left side: Plan: as above Improving/then worsening, continued passage of stones. Consider repeat KUB in AM? (6) Constipation: Plan: bowel regimen, ambulation encouraged (has been walking the halls) +BM 09/27 and continues to pass gas (not unusual for her) monitor (7) Tachycardia: Plan: Hx symptomatic PVCs, on metoprolol 12.5mg daily Tachycardic to 120-130s AM 09/28. EKG obtained w/ sinus tachy to 125bpm, low voltage QRS, nonspecific T wave abn No chest pain but reporting palpitations. Increased pain control as above, low 100s IMPROVED w/ ABOVE. Continued monitoring on telemetry Will monitor mag in AM but no replacement for today Plan DVT prophylaxis: Ambulation encouraged, SCDs Ceftriaxone IV, monitor f/u urine cx. Continue supportive care/IVF/pain control and monitor labs in AM Dispo: pending urine cx/pain control Admission and Anticipated Discharge Date Admission Date: September 28, 2023 Subjective Patient evaluated this morning. Had a lot of nausea/vomiting overnight, RUQ discomfort. US negative for GB pathology. Reported feeling funny with Compazine but feeling a little better at present. Pain control difficult. Discussed increased dilaudid for today and will attempt dual control and wean to oral for tomorrow. Continued passage fragments, L flank/CVA tenderness and suprapubic discomfort. Discussed w/ OBGYN and ceftriaxone IV for today and monitoring response but plan for macrobid 100mg BID x 7 day course. No further palpitations and reports metoprolol dosing working well. No fever/chills at present. Diet changed back to regular. Will continue IVF for today but does appear better hydrated. Pending PO intake/dc for tomorrow? Questions/concerns addressed at this time. Physical Exam 2 Physical Exam: 28yo F sitting up in bed, just got back from bathroom, medicated about hour ago for pain and appearing comfortable at present head atraumatic, normocephalic, mm improved/stable, trachea midline resp; cta, no w/c/r, on room air 94% CV: RRR, no pitting edema/calf tenderness GI: +BS, uterine fundus palpable, no masses L flank/CVA tenderness, suprapubic tenderness no RUQ discomfort Psych: AOx3, cooperative and pleasant with exam Results & Data Results & Data Vital Signs (Past 12 Hours) Vital Signs Temp Pulse Pulse Resp BP BP Pulse Ox 10/01/23 07:37 36.5 C 88 18 117/72 99 10/01/23 04:03 36.4 C L 79 18 106/71 97 09/30/23 21:58 100 H 09/30/23 20:26 36.4 C L 91 H 18 102/68 97 O2 Del Method 10/01/23 07:37 Room Air 10/01/23 04:03 Room Air 09/30/23 21:58 09/30/23 20:26 Room Air Laboratory Results 10/01/23 05:01 10/01/23 05:01 LFTs wnl Diagnostic Findings Gallbladder Ultrasound 10/01/23 00:00 US gallbladder CLINICAL HISTORY: ruq discomfort, gb distension on CTAP, n/v COMPARISON STUDY: CT of the abdomen and pelvis September 25, 2023. FINDINGS: Liver is sonographically normal. There is no biliary ductal dilatation. The common bile duct measures 3 mm in caliber. There are no gallstones. No gallbladder wall thickening was present. Sonographic Mendoza sign could not be assessed for in this patient. Pancreatic body is normal. Head and tail are partially obscured. There is no right hydronephrosis. Several right renal calculi measure up to 3 mm. IMPRESSION: 1. No gallstones. No biliary ductal dilatation. No evidence for acute cholecystitis. 2. Right nephrolithiasis. ACT 112: Negative or not required by law. Electronically signed by: Nader Pérez M.D. 10/01/2023 6:33 AM PG Care Time/CCT Total # of Minutes Spent Total Time Spent with Patient: Total time spent is greater than 50% in coordination of care (as documented) at patient's floor/unit and/or counseling patient: Coding Level of Care Code 48186 SUB INP/OBS CARE 3/50MIN Diagnoses History of nephrolithiasis Z87.442 Nausea & vomiting R11.2 Vomiting type: unspecified and not yet delivered in second trimester Z34.92 Symptomatic PVCs I49.3 Renal colic on left side N23 Constipation K59.00 Tachycardia R00.0 (2) Nausea & vomiting Vomiting type: unspecified Qualified Code(s): R11.2 - Nausea with vomiting, unspecified
[2023-10-01] MEDS ORDERED: cefTRIAXone SODIUM 1,000 MG in DEXTROSE 5 % MINI-B 50 ML IV SCH (11:15)
[2023-10-01] MEDS: SODIUM CHLORIDE 0.9% 1,000 ML IV SCH ×2 (12:26→23:22)
[2023-10-01] MEDS: cefTRIAXone SODIUM 2,000 MG in DEXTROSE 5 % MINI-B 50 ML IV SCH (12:27)
[2023-10-01] MEDS: POLYETHYLENE (MIRALAX) 17 GM PACK PO PRN (14:25)
[2023-10-01] MEDS: traZODone HCL 50 MG TAB PO SCH (22:28)
--- NOTE | 2023-10-01 22:42 | Electrocardiogram Report ---
Test Reason : Blood Pressure : / mmHG Vent. Rate : 124 BPM Atrial Rate : 124 BPM P-R Int : 120 ms QRS Dur : 072 ms QT Int : 318 ms P-R-T Axes : 049 031 018 degrees QTc Int : 456 ms Sinus tachycardia Nonspecific T wave abnormality When compared with ECG of 28-SEP-2023 09:16, Nonspecific T wave abnormality, improved in Inferior leads Nonspecific T wave abnormality no longer evident in Lateral leads Confirmed by Beto Johnson ([id number]) on 10/01/2023 10:41:48 PM Referred By: REFERRED SELF Confirmed By:Beto Johnson
[2023-10-02] MEDS: HYDROmorphone INJ 0.5 MG/0.5 ML SYR IV PRN ×9 (02:44→21:57)
[2023-10-02] MEDS: oxyCODONE HCL IR 5 MG TAB (IMMEDIATE RELEASE) PO PRN ×4 (04:37→19:43)
[2023-10-02 04:54] LABS: Hematocrit (blood only) 31.6 % (37.0-47.0); Hemoglobin 10.2 g/dl (12.0-16.0); Mean Corpuscular Hemoglobin 29.3 pg (25.0-34.0); Mean Corpuscular Hgb Conc 32.3 g/dL (32.0-36.0); Mean Corpuscular Volume 90.8 fL (80.0-100.0); Mean Platelet Volume 10.6 fL (9.4-12.4); Platelet Count 188 K/uL (130-400); RDW Coefficient of Variation 13.5 % (11.5-14.5); RDW Standard Deviation 43.8 fL (36.4-46.3); Red Blood Count 3.48 M/uL (4.20-5.40); White Blood Count 6.36 K/ul (4.8-10.8)
[2023-10-02 05:02] LABS: Anion Gap 6 (3-11); BUN Creatinine Ratio 16.7 (10-20); Blood Urea Nitrogen 8 mg/dl (6-23); Calcium 8.3 mg/dl (8.6-10.3); Carbon Dioxide 26 mmol/L (21-32); Chloride 106 mmol/L (98-107); Creatinine Clr Calc Pharmacy 183.5 ml/min; Est GFR (African American) > 150.0 ml/min; Est GFR (Non-African American) 132.6 ml/min; Glucose 94 mg/dl (70-99(Fasting)); Magnesium 1.5 mg/dl (1.7-2.4); Potassium 3.7 mmol/L (3.5-5.1); Sodium 138 mmol/L (136-145)
[2023-10-02] MEDS: ONDANSETRON INJ 2 MG/ML 2 ML VIAL IV PRN ×3 (06:08→16:48)
--- NOTE | 2023-10-02 07:53 | Hospitalist Progress Note ---
Date of Service October 02, 2023 Assessment & Plan (1) History of nephrolithiasis: Plan: Recurrent and persistent n/v x2 days. History of nephrolithiasis, renal colic Recent admission for lithotripsy of 6 mm L uretal calculus with transfer to [place] for lithotripsy. [facility] [place] discharge summary reviewed. 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 This was discontinued on hospital day 3 and reinitiated on day 4 due to inadequate pain control. She received a course of betamethasone on 08/28 and 08/29 in anticipation of urologic procedure in the event of labor was triggered; 08/30 patient had urologic intervention with left ureteroscopy and left laser lithotripsy. Remained for 2 additional days for pain control and was discharged in stable condition. Daily heart tracings were normal. During prior admission she had a white count of 8K, and showed no evidence of either CANDY or UTI during admission. CTA/P w/ nonobstructing bilateral nephrolithiasis. No ureteral calculi or hydronephrosis Pt passed a small stone while in the ER. 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 Passed 3 additional smaller stones AM 09/29 Renal US obtained, NEGATIVE for obstruction/hydro at present Urology consulted, no intervention at present. Continue Pyridium for spasm pain. If became septic/febrile, rec for transfer UA w/o bacteria but continued burning w/ urination. ?continued passing of stones Urine cx obtained, placed on Keflex PO for now and urine cx w/ mixed tom/no growth however she reported increased n/v/abdominal discomfort and repeat UA now w/ + bacteria Discussed w/ OBGYN Dr Marquis, prior recs for tube placement (was tx to [facility] [place], no nephrostomy tubes placed), and will give IV Ceftriaxone for today and convert to PO Macrobid 100mg BID x 7 days pending status in AM/PO intake Monitor repeat urine cx Kidney function stable at present Continue IVF but changed to NS given interaction w/ Rocephin Antiemetics prn Pain control increased IV Dilaudid for now 1mg q2h prn, PO available 10mg as dc from [facility] [place] on w/ good relief 12/19 Additional stone passage overnight. remains on supportive care. IV Ceftriaxone while urine cx pending and will continue until final to ensure no resistance/issues but if negative can transition to macrobid 100mg BID for another 5 days 10/03 to complete 7 day course General surgery consulted for possible thrombosed hemorrhoid. Cream ordered in meantime for comfort Doppler for completeness given L leg swelling however calf nontender/pulse present. If negative, ordering SCDs but notable patient has been up/ambulating the halls during inpatient stay. (2) Nausea & vomiting: Plan: antiemetics prn. no further emesis and on regular diet Patient developed RUQ discomfort evening 09/30, thought was related to stone. Associated nausea/vomiting. CTAP on admission no mention of cholelithiasis but does mention distended GB. RUQ negative for acute thierry, ?if R sided stones moving LFTs wnl Continue antiemetics w/ zofran (was given compazine over weekend, would AVOID) (3) and not yet delivered in second trimester: Plan: 28-year-old female DD 11/20/2023 at 29 wks Daily tones ordered, follows [facility] DIE CUTTER DIAMOND -- consult placed as above. Daily NST per DIE CUTTER DIAMOND, reassuring vitamin/Fe replacement ordered Pain management w/o recs for changes (4) Symptomatic PVCs: Plan: Increased reports 09/28 w/ rates to 130-140s, suspected 2nd to pain/dehydration and improvement w/ pain control however reported increased palpitations prior evening w/ elevated HR and additional metoprolol provided w/ relief ECHO w/ normal EF, no wma Decision to increase baseline metoprolol to 25mg daily and reported improvement in symptoms and HR improved and will montior (5) Renal colic on left side: Plan: as above Improving/then worsening, continued passage of stones. (6) Constipation: Plan: bowel regimen, ambulation encouraged (has been walking the halls) +BM 09/27 and continues to pass gas (not unusual for her) monitor Hemorrhoids as above, cream ordered. continue bowel regimen/monitor (7) Tachycardia: Plan: Hx symptomatic PVCs, on metoprolol 12.5mg daily Tachycardic to 120-130s AM 09/28. EKG obtained w/ sinus tachy to 125bpm, low voltage QRS, nonspecific T wave abn No chest pain but reporting palpitations. Increased pain control as above, low 100s IMPROVED w/ ABOVE. Continued monitoring on telemetry ?continued mag replacement HRs stable but does have sinus arrthmia at times. No pleuritic chest pain/hypoxia. Plan DVT prophylaxis: Ambulation encouraged, SCDs Ceftriaxone IV, monitor f/u urine cx. Continue supportive care/IVF/pain control and monitor labs in AM Dispo: pending urine cx/pain control Admission and Anticipated Discharge Date Admission Date: September 28, 2023 Subjective Eval this morning, doing well and passed additional stones overnight. Pain regimen keeping pain at bay but does report some L flank pain, continuing IV abx and fluids at present time to maintain volume status. Has been straining to urinate and developed multiple hemorrhoids, picture on phone as well, discussed cream but possibility of thrombosed hemorrhoid and will consult for eval/treatment. L leg slightly more swollen than the right but no calf tenderness. Checking doppler. Physical Exam 2 Physical Exam: 28yo F appearing comfortable and medicat ed, nAD head atraumatic, normocephalic, mm stable, trachea midline resp; cta, no w/c/r, on room air 96% CV: RRR, rates in 90s, L leg does appear slightly more swollen than the R, calves nontender, pulses palpable GI: +BS, uterine fundus palpable, no masses :L flank/CVA tenderness, suprapubic tenderness no RUQ discomfort multiple external hemorrhoids- picture on phone from this morning Psych: AOx3, cooperative and pleasant with exam Results & Data Results & Data Vital Signs (Past 12 Hours) Vital Signs Temp Pulse Pulse Resp BP Pulse Ox O2 Del Method 10/02/23 07:20 92 H 10/02/23 03:06 36.5 C 92 H 18 107/63 97 Room Air 10/01/23 23:42 36.6 C 87 18 111/76 95 Room Air 10/01/23 23:15 92 H 10/01/23 19:57 36.5 C 94 H 18 108/65 95 Room Air Laboratory Results 10/02/23 04:04 10/02/23 04:04 Mag 1.5 PG Care Time/CCT Total # of Minutes Spent Total Time Spent with Patient: Total time spent is greater than 50% in coordination of care (as documented) at patient's floor/unit and/or counseling patient: Coding Level of Care Code 94815 SUB INP/OBS CARE MIN Diagnoses History of nephrolithiasis Z87.442 Nausea & vomiting R11.2 Vomiting type: unspecified and not yet delivered in second trimester Z34.92 Symptomatic PVCs I49.3 Renal colic on left side N23 Constipation K59.00 Tachycardia R00.0 (2) Nausea & vomiting Vomiting type: unspecified Qualified Code(s): R11.2 - Nausea with vomiting, unspecified
[2023-10-02] MEDS: PRENATAL VITAMIN 1 TAB PO SCH (09:32)
[2023-10-02] MEDS: METOPROLOL SUCC 25MG EXT REL TAB PO SCH (09:32)
[2023-10-02] MEDS: DOCUSATE SODIUM 100 MG CAP PO SCH ×2 (09:33→19:43)
[2023-10-02] MEDS: TAMSULOSIN HCL 0.4 MG CAP PO SCH (09:33)
[2023-10-02] MEDS: buPROPion XL 300 MG TABCR PO SCH (09:33)
[2023-10-02] MEDS: FERROUS SULFATE 325 MG TAB PO SCH (09:33)
[2023-10-02] MEDS: PYRIDOXINE HCL 50 MG TAB PO SCH (09:33)
[2023-10-02] MEDS: cefTRIAXone SODIUM 2,000 MG in DEXTROSE 5 % MINI-B 50 ML IV SCH (11:30)
[2023-10-02] MEDS ORDERED: HYDROCORTISONE ACETATE 25 MG SUPP PR PRN (13:47)
--- NOTE | 2023-10-02 13:54 | Surgery Consultation ---
Date of Consultation October 02, 2023 Assessment & Plan (1) Hemorrhoids: Currently nothing that would require urgent surgical intervention. I will prescribe her some hydrocortisone suppositories to use twice a day we will also obtained a bedside sitz bath's for her to use as needed. Will continue to follow along while she is in the hospital to ensure symptoms improve. (2) Proctitis: History of Present Illness Attending Physician: Emory Adams Bridgetteyuniermarco History of Present Illness 28-year-old female who is being because of kidney stone issues. She is in her second trimester of her second . She does have trouble routinely with hemorrhoids however over the past 24 hours has developed more discomfort and burning in the anal area. She has been laying in bed and sitting a lot and believes it may be secondary to all the pressure. Allergies Allergy/AdvReac Type Severity Reaction Status Date / Time aluminum [From Drysol] Allergy Intermediate Hives Verified 09/06/23 11:18 Home Medications Medication Instructions Recorded Confirmed Type PNV 153-FA 400 mcg-om3 35 mg-dha 1 tab PO DAILY 08/17/23 09/25/23 History 25 mg-epa 5 mg-fish oil chew tablet ( Gummies) bupropion HCl 300 mg 24 hr tablet, 300 mg PO QAM 08/17/23 09/25/23 History extended release iron 18 mg tablet 18 mg PO BID 08/17/23 09/25/23 History metoprolol succinate 25 mg 12.5 mg PO QAM 08/17/23 09/25/23 History tablet,extended release 24 hr ondansetron HCl 8 mg tablet 8 mg PO Q8H PRN NAUSEA/VOMITING 08/17/23 09/25/23 History pyridoxine (vitamin B6) 100 mg 100 mg PO DAILY 08/17/23 09/25/23 History tablet (Vitamin B-6) trazodone 50 mg tablet 50 mg PO HS 08/17/23 09/25/23 History docusate sodium 100 mg capsule 100 mg PO BID PRN Constipation 09/25/23 09/25/23 History famotidine 20 mg tablet 20 mg PO QAM PRN acid reflux 09/25/23 09/25/23 History polyethylene glycol 3350 17 gram 17 g PO BID PRN Constipation 09/25/23 09/25/23 History oral powder packet (Miralax) Patient History Medical History (Updated 10/02/23 @ 13:53 by Andrés Ramos, ) Nephrolithiasis and not yet delivered in third trimester History of nephrolithiasis Abdominal pain Right ovarian cyst Developmental dyslexia Depression with anxiety GERD (gastroesophageal reflux disease) Myofascial pain Chronic low back pain Herniated disc LUMBAR AND CERVICAL (FULL ROM) History of kidney stones Sacroiliac joint pain Anxiety Vitamin D deficiency HX, ? CURRENT STATUS Surgical History History of laparoscopy History of breast lump/mass excision (01/17/22) Excision of left breast mass. Dr. Jason 01/17/2022 S/P cystoscopy with ureteral stent placement 12/05/20 Dr. Lamont Ambrose- Cystoscopy, Left ureteroscopy, Laser lithotripsy, Stone basket extraction of stone, Left retrograde pyelogram, Left ureteral stent placement Nasal fracture Repair of nasal fracture Family History Mother No problems noted. 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 Beliefs That Will Affect Care: None marital status: Single Current Living Situation: Other Current Living Situation Comment: boyfriend current occupational status: employed 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 @ [employer] How many Children do You have: 1 Feels Safe at Home: Yes Safety Concerns: Feels Safe At This Time Childhood Exposure to Second-Hand Smoke: No Diet: regular during the past year weight has: increased > 10 lbs Physical Activity Frequency: Daily Seatbelt Use: always Sunscreen Use: Yes Assistive Devices: None Physical Exam Constitutional: WD/WN, vitals as above no acute distress and not ill appe aring Eyes: PERRL, conjunctivae normal, anicteric sclerae EOM intact bilaterally ENMT: external ear and nose normal, oropharynx normal Ears: no hearing impairment Neck: trachea midline, no thyromegaly Respiratory: normal respiratory effort; no respiratory distress and does not use accessory muscles Cardiovascular: Rate/Rhythm: regular rate and regular rhythm Gastrointestinal (Abdomen): normal bowel sounds, soft, nontender, no hepatosplenomegaly I did not perform proctoscopy however she does have some small prolapsed hemorrhoids. There is no evidence of thrombosis. There is generalized mild proctitis Skin: no rashes, warm and dry Psychiatric: Orientation: alert, oriented x 3 and cooperative Results & Data Vital Signs (Past 12 Hours) Vital Signs Temp Pulse Pulse Resp BP BP Pulse Ox 10/02/23 11:35 36.6 C 91 H 18 125/82 96 10/02/23 07:50 36.6 C 94 H 18 115/73 98 10/02/23 07:20 92 H 10/02/23 03:06 36.5 C 92 H 18 107/63 97 O2 Del Method 10/02/23 11:35 Room Air 10/02/23 07:50 Room Air 10/02/23 07:20 10/02/23 03:06 Room Air PG Care Time/CCT Total # of Minutes Spent Total Time Spent with Patient: Total time spent is greater than 50% in coordination of care (as documented) at patient's floor/unit and/or counseling patient: Coding Level of Care Code 36151 IN/OBS CONSULT LVL 3,45M Diagnoses Hemorrhoids K64.9 Proctitis K62.89
--- NOTE | 2023-10-02 14:05 | Ultrasound Report ---
US venous doppler LE LT CLINICAL HISTORY: r/o dvt, L leg swelling TECHNIQUE: Left lower extremity real-time compression venous ultrasound with Color Doppler imaging. U tilizing real-time ultrasonic imaging multiple real time high-resolution ultrasonic images with compr ession and noncompression maneuvers of the deep venous system in addition to color doppler imaging we re performed from the common femoral vein through the proximal calf veins. COMPARISON: None available at the time of this dictation. FINDINGS/IMPRESSION: Currently there is normal compressibility of the deep venous system from the common femoral vein thro ugh the proximal calf veins. No superficial venous thrombosis is identified. ACT 112: Negative or not required by law. Electronically signed by: Mati Sandoval M.D. 10/02/2023 2:03 PM
[2023-10-02] MEDS: SODIUM CHLORIDE 0.9% 1,000 ML IV SCH (14:08)
[2023-10-02] MEDS: HYDROCORTISONE HC 2.5% CRM 30GM TUBE EXT PRN (17:06)
[2023-10-02] MEDS: traZODone HCL 50 MG TAB PO SCH (19:43)
[2023-10-03] MEDS: oxyCODONE HCL IR 5 MG TAB (IMMEDIATE RELEASE) PO PRN ×5 (00:04→20:09)
[2023-10-03] MEDS: HYDROmorphone INJ 0.5 MG/0.5 ML SYR IV PRN ×10 (00:05→22:14)
[2023-10-03] MEDS: SODIUM CHLORIDE 0.9% 1,000 ML IV SCH ×2 (01:57→13:59)
[2023-10-03] MEDS: DOCUSATE SODIUM 100 MG CAP PO SCH ×2 (07:58→20:08)
[2023-10-03] MEDS: TAMSULOSIN HCL 0.4 MG CAP PO SCH ×2 (07:59→09:19)
[2023-10-03] MEDS: FAMOTIDINE 20 MG TAB PO PRN (07:59)
[2023-10-03] MEDS: FERROUS SULFATE 325 MG TAB PO SCH (07:59)
[2023-10-03] MEDS: PRENATAL VITAMIN 1 TAB PO SCH (07:59)
[2023-10-03] MEDS: PYRIDOXINE HCL 50 MG TAB PO SCH (07:59)
[2023-10-03] MEDS: buPROPion XL 300 MG TABCR PO SCH (07:59)
[2023-10-03] MEDS: METOPROLOL SUCC 25MG EXT REL TAB PO SCH (07:59)
[2023-10-03] MEDS: POLYETHYLENE (MIRALAX) 17 GM PACK PO PRN (09:19)
[2023-10-03] MEDS: cefTRIAXone SODIUM 2,000 MG in DEXTROSE 5 % MINI-B 50 ML IV SCH (11:20)
--- NOTE | 2023-10-03 12:04 | Surgery Progress Note ---
Date of Service October 03, 2023 Assessment & Plan (1) Hemorrhoids: Plan: Some signs of clinical improvement already. I will sign off at this point. She can follow-up with me in the future if she would want to discuss hemorrhoidectomy electively Admission and Anticipated Discharge Date Admission Date: September 28, 2023 Subjective Patient seen. She is using suppositories as well as rectal cream and is feeling significantly improved already Review of Systems Review of Systems: All systems reviewed & are unremarkable except as noted in HPI & below Physical Exam Constitutional: WD/WN, vitals as above no acute distress and not ill appearing Eyes: PERRL, conjunctivae normal, anicteric sclerae EOM intact bilaterally ENMT: external ear and nose normal, oropharynx normal Ears: no hearing impairment Neck: trachea midline, no thyromegaly Respiratory: normal respiratory effort; no respiratory distress and does not use accessory muscles Cardiovascular: Rate/Rhythm: regular rate and regular rhythm Gastrointestinal (Abdomen): normal bowel sounds, soft, nontender, no hepatosplenomegaly Skin: no rashes, warm and dry Psychiatric: Orientation: alert, oriented x 3 and cooperative Results & Data Vital Signs (Past 12 Hours) Vital Signs Temp Pulse Pulse Resp BP BP Pulse Ox 10/03/23 11:16 36.6 C 113 H 20 120/80 99 10/03/23 07:50 36.6 C 93 H 18 117/70 98 10/03/23 07:44 85 10/03/23 04:48 36.7 C 91 H 16 116/74 99 10/03/23 00:19 85 O2 Del Method 10/03/23 11:16 Room Air 10/03/23 07:50 Room Air 10/03/23 07:44 10/03/23 04:48 Room Air 10/03/23 00:19 PG Care Time/CCT Total # of Minutes Spent Total Time Spent with Patient: Total time spent is greater than 50% in coordination of care (as documented) at patient's floor/unit and/or counseling patient: Coding Level of Care Code 25878 SUB INP/OBS CARE 1/25MIN Diagnoses Hemorrhoids K64.9
[2023-10-03] MEDS: ONDANSETRON INJ 2 MG/ML 2 ML VIAL IV PRN (12:19)
[2023-10-03] MEDS: PHENAZOPYRIDINE HCL 200 MG TAB PO PRN (13:10)
[2023-10-03] MEDS: ACETAMINOPHEN 325 MG TAB PO PRN (15:06)
[2023-10-03] MEDS ORDERED: HYDROmorphone INJ 0.5 MG/0.5 ML SYR IV STA (15:27)
--- NOTE | 2023-10-03 15:29 | Hospitalist Progress Note ---
Date of Service October 03, 2023 Assessment & Plan (1) History of nephrolithiasis: Plan: History of nephrolithiasis, renal colic in Recent admission for lithotripsy of 6 mm L uretal calculus with transfer to [place] for lithotripsy. [facility] [place] discharge summary reviewed. * On arrival to their facility she was treated conservatively with Flomax, IV, and Dilaudid ROUNDER HAND. This was discontinued on hospital day 3 and reinitiated on day 4 due to inadequate pain control. She received a course of betamethasone on 08/28 and 08/29 in anticipation of urologic procedure in the event of labor was triggered; 08/30 patient had urologic intervention with left ureteroscopy and left laser lithotripsy. Remained for 2 additional days for pain control and was discharged in stable condition. Daily heart tracings were normal. During prior admission she had a white count of 8K, and showed no evidence of either CANDY or UTI during admission. CT A/P here w/ nonobstructing bilateral nephrolithiasis. No ureteral calculi or hydronephrosis Renal US NEGATIVE for obstruction/hydro She has passed 7 kidney stones so far this admission Continues to have intermittent left flank pain requiring IV Dilaudid and p.o. oxycodone, Tylenol, heating pad as needed for pain Urology consulted, no intervention at present. Recommends continue Pyridium for spasm pain. If became septic/febrile, rec for transfer-none of this so far and renal function is normal. UA initially without evidence of infection, but repeat UA seems to be more infected but urine culture with mixed tom on 09/28 and negative on 10/01 Continue ceftriaxone and convert to p.o. antibiotics tomorrow to finish out 7- day course Zofran as needed for nausea (2) Nausea & vomiting: Plan: Secondary to pain from multiple kidney stones Patient developed RUQ discomfort evening 09/30, thought was related to stone. Associated nausea/vomiting. CTAP on admission no mention of cholelithiasis but does mention distended GB. RUQ negative for acute thierry LFTs wnl Continue antiemetics w/ zofran (3) and not yet delivered in second trimester: Plan: 28-year-old female EDC 11/20/2023 now at 30 weeks gestational age Daily NST per PULLER OVER, reassuring vitamin/Fe replacement ordered (4) Symptomatic PVCs: Plan: Metoprolol was increased to 25 mg daily for sinus tachycardia in the 120s to 130s which is likely secondary to pain ECHO w/ normal EF, no wma Okay to remove off of residential monitor (5) Constipation: Plan: Continue bowel regimen with docusate and MiraLAX-make scheduled twice daily as she now has hemorrhoids General surgery was consulted previously for hemorrhoids-recommends conservative treatment and hydrocortisone [place] as needed Plan DVT prophylaxis: Ambulation encouraged, SCDs Dispo: Continued stay until pain can be controlled with oral analgesics or is resolved but unfortunately has at least 12 kidney stones visualized on initial CT scan Admission and Anticipated Discharge Date Admission Date: September 28, 2023 Subjective Patient still having significant left flank pain and passed 3 more kidney stones today. Having urinary urgency but not much urine coming out. Otherwise feeling baby moving and no other concerns. Has nausea when pain is severe Continues to use large amounts of IV Dilaudid and p.o. oxycodone Physical Exam Constitutional: WD/WN, vitals as above Respiratory: normal respiratory effort, lungs clear to auscultation Cardiovascular: Rate/Rhythm: regular rate and regular rhythm Extremities: + edema (Trace pitting edema of the legs bilaterally) Gastrointestinal (Abdomen): Inspection/Auscultation: normal bowel sounds; + abdomen abnormal to inspection (Gravid) Percussion/Palpation: abdomen soft; abdomen nontender Psychiatric: A+Ox3, euthymic affect Results & Data Results & Data Vital Signs (Past 12 Hours) Vital Signs Temp Pulse Pulse Resp BP BP Pulse Ox 10/03/23 15:12 36.6 C 97 H 18 125/79 94 10/03/23 11:16 36.6 C 113 H 20 120/80 99 10/03/23 07:50 36.6 C 93 H 18 117/70 98 10/03/23 07:44 85 10/03/23 04:48 36.7 C 91 H 16 116/74 99 O2 Del Method 10/03/23 15:12 Room Air 10/03/23 11:16 Room Air 10/03/23 07:50 Room Air 10/03/23 07:44 10/03/23 04:48 Room Air PG Care Time/CCT Total # of Minutes Spent Total Time Spent with Patient: Total time spent is greater than 50% in coordination of care (as documented) at patient's floor/unit and/or counseling patient: Coding Level of Care Code 83060 SUB INP/OBS CARE MIN Diagnoses History of nephrolithiasis Z87.442 Nausea & vomiting R11.2 Vomiting type: unspecified and not yet delivered in second trimester Z34.92 Symptomatic PVCs I49.3 Constipation K59.00 (2) Nausea & vomiting Vomiting type: unspecified Qualified Code(s): R11.2 - Nausea with vomiting, unspecified
[2023-10-03] MEDS: HYDROCORTISONE HC 2.5% CRM 30GM TUBE EXT PRN (16:55)
[2023-10-03] MEDS: traZODone HCL 50 MG TAB PO SCH (20:08)
[2023-10-03] MEDS: POLYETHYLENE (MIRALAX) 17 GM PACK PO SCH (20:08)
[2023-10-04] MEDS: HYDROmorphone INJ 0.5 MG/0.5 ML SYR IV PRN ×10 (00:23→21:55)
[2023-10-04] MEDS: oxyCODONE HCL IR 5 MG TAB (IMMEDIATE RELEASE) PO PRN ×5 (00:23→22:41)
[2023-10-04] MEDS: SODIUM CHLORIDE 0.9% 1,000 ML IV SCH ×2 (03:36→17:33)
[2023-10-04 07:35] LABS: Basophils # (auto) 0.02 K/uL (0.00-0.20); Basophils % (auto) 0.3 %; Eosinophils # (auto) 0.04 K/uL (0.00-0.50); Eosinophils % (auto) 0.7 %; Hematocrit (blood only) 30.5 % (37.0-47.0); Hemoglobin 9.9 g/dl (12.0-16.0); Immature Granulocytes # (auto) 0.04 K/uL (0.01-0.20); Immature Granulocytes % (auto) 0.7 %; Lymphocytes # (auto) 1.51 K/uL (1.20-3.40); Lymphocytes % (auto) 24.9 %; Mean Corpuscular Hemoglobin 29.4 pg (25.0-34.0); Mean Corpuscular Hgb Conc 32.5 g/dL (32.0-36.0); Mean Corpuscular Volume 90.5 fL (80.0-100.0); Mean Platelet Volume 10.7 fL (9.4-12.4); Monocytes # (auto) 0.83 K/uL (0.11-0.59); Monocytes % (auto) 13.7 %; Neutrophils # (auto) 3.63 K/uL (1.40-6.50); Neutrophils % (auto) 59.7 %; Platelet Count 175 K/uL (130-400); RDW Coefficient of Variation 13.6 % (11.5-14.5); RDW Standard Deviation 43.9 fL (36.4-46.3); Red Blood Count 3.37 M/uL (4.20-5.40); White Blood Count 6.07 K/ul (4.8-10.8)
[2023-10-04 07:56] LABS: Anion Gap 5 (3-11); BUN Creatinine Ratio 14.6 (10-20); Blood Urea Nitrogen 6 mg/dl (6-23); Calcium 8.3 mg/dl (8.6-10.3); Carbon Dioxide 26 mmol/L (21-32); Chloride 106 mmol/L (98-107); Est GFR (African American) > 150.0 ml/min; Est GFR (Non-African American) 139.6 ml/min; Glucose 79 mg/dl (70-99(Fasting)); Potassium 3.6 mmol/L (3.5-5.1); Sodium 137 mmol/L (136-145)
[2023-10-04] MEDS: ONDANSETRON INJ 2 MG/ML 2 ML VIAL IV PRN ×2 (07:59→21:55)
[2023-10-04] MEDS: PHENAZOPYRIDINE HCL 200 MG TAB PO PRN (09:21)
[2023-10-04] MEDS: TAMSULOSIN HCL 0.4 MG CAP PO SCH (09:21)
[2023-10-04] MEDS: buPROPion XL 300 MG TABCR PO SCH (09:21)
[2023-10-04] MEDS: PYRIDOXINE HCL 50 MG TAB PO SCH (09:22)
[2023-10-04] MEDS: METOPROLOL SUCC 25MG EXT REL TAB PO SCH (09:22)
[2023-10-04] MEDS: FERROUS SULFATE 325 MG TAB PO SCH (09:22)
[2023-10-04] MEDS: PRENATAL VITAMIN 1 TAB PO SCH (09:22)
[2023-10-04] MEDS: DOCUSATE SODIUM 100 MG CAP PO SCH ×2 (09:24→19:42)
[2023-10-04] MEDS: POLYETHYLENE (MIRALAX) 17 GM PACK PO SCH ×2 (09:24→19:38)
[2023-10-04] MEDS: ACETAMINOPHEN 325 MG TAB PO PRN (09:29)
[2023-10-04] MEDS: cefTRIAXone SODIUM 2,000 MG in DEXTROSE 5 % MINI-B 50 ML IV SCH (11:55)
[2023-10-04] MEDS: FAMOTIDINE 20 MG TAB PO PRN (12:55)
[2023-10-04] MEDS ORDERED: HYDROmorphone INJ 0.5 MG/0.5 ML SYR IV STA (13:53)
[2023-10-04] MEDS ORDERED: MAGNESIUM SULFATE / D5W 1 GM/100 ML BAG IV ONE (16:31)
--- NOTE | 2023-10-04 16:31 | Hospitalist Progress Note ---
Date of Service October 04, 2023 Assessment & Plan (1) History of nephrolithiasis: Plan: History of nephrolithiasis, renal colic in Recent admission for lithotripsy of 6 mm L uretal calculus with transfer to [place] for lithotripsy. [facility] [place] discharge summary reviewed. 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 This was discontinued on hospital day 3 and reinitiated on day 4 due to inadequate pain control. She received a course of betamethasone on 08/28 and 08/29 in anticipation of urologic procedure in the event of labor was triggered; 08/30 patient had urologic intervention with left ureteroscopy and left laser lithotripsy. Remained for 2 additional days for pain control and was discharged in stable condition. Daily heart tracings were normal. During prior admission she had a white count of 8K, and showed no evidence of either CANDY or UTI during admission. CT A/P here w/ nonobstructing bilateral nephrolithiasis-12 stones seen bilat kidneys. No ureteral calculi or hydronephrosis Renal US NEGATIVE for obstruction/hydro She has passed 9 kidney stones so far this admission Continues to have intermittent left flank pain requiring IV Dilaudid and p.o. oxycodone, Tylenol, heating pad as needed for pain Urology consulted, no intervention at present. Recommends continue Pyridium for spasm pain. If became septic/febrile, rec for transfer-none of this so far and renal function is normal. UA initially without evidence of infection, but repeat UA seems to be more infected but urine culture with mixed tom on 09/28 and negative on 10/01 Convert ceftriaxone to p.o. keflex today to finish out 7-day course on 10/08 Zofran as needed for nausea Increase oxycodone to 15mg po q4h in effort to wean off IV dilaudid Continue FLomax, IVFs (2) Nausea & vomiting: Plan: Secondary to pain from multiple kidney stones Patient developed RUQ discomfort evening 09/30, thought was related to stone. Associated nausea/vomiting. CTAP on admission no mention of cholelithiasis but does mention distended GB. RUQ negative for acute thierry LFTs wnl Continue antiemetics w/ zofran Make Pepcid 20mg po bid scheduled (3) and not yet delivered in second trimester: Plan: 28-year-old female EDC 11/20/2023 now at 30 weeks gestational age Daily NST per DATABASE DBA, reassuring vitamin/Fe replacement ordered (4) Symptomatic PVCs: Plan: Metoprolol was increased to 25 mg daily for sinus tachycardia in the 120s to 130s which is likely secondary to pain ECHO w/ normal EF, no wma (5) Constipation: Plan: Continue bowel regimen with docusate and MiraLAX scheduled twice daily as she now has hemorrhoids General surgery was consulted previously for hemorrhoids-recommends conservative treatment and hydrocortisone [place] as needed Moved bowels large amount 10/04 Plan DVT prophylaxis: Ambulation encouraged, SCDs, TEDs Dispo: Continued stay until pain can be controlled with oral analgesics or is resolved but unfortunately has at least 12 kidney stones visualized on initial CT scan Admission and Anticipated Discharge Date Admission Date: September 28, 2023 Subjective Continues to have ongoing left flank pain and left groin pain into her pubic bone region. Passed 2 more stones today-one looked like a piece of sand and another was described by the SOCIAL WORK NURSE as a "nerd" candy. Required an extra dose of 0.5mg IV dilaudid on top of usual meds Also having more heartburn each day Physical Exam Constitutional: WD/WN, vitals as above Respiratory: normal respiratory effort, lungs clear to auscultation Cardiovascular: Rate/Rhythm: regular rate and regular rhythm Extremities: + edema (Trace pitting edema of the legs bilaterally) Gastrointestinal (Abdomen): Inspection/Auscultation: normal bowel sounds; + abdomen abnormal to inspection (Gravid) Psychiatric: A+Ox3, euthymic affect Results & Data Results & Data Vital Signs (Past 12 Hours) Vital Signs Temp Pulse Pulse Resp BP Pulse Ox O2 Del Method 10/04/23 15:56 36.7 C 84 16 110/68 97 Room Air 10/04/23 15:47 36.8 C 84 18 119/59 L 97 Room Air 10/04/23 11:08 36.5 C 85 18 113/68 96 Room Air 10/04/23 08:01 36.9 C 97 H 18 119/75 99 Room Air Laboratory Results CBC, BMP, and magnesium reviewed PG Care Time/CCT Total # of Minutes Spent Total Time Spent with Patient: Total time spent is greater than 50% in coordination of care (as documented) at patient's floor/unit and/or counseling patient: Coding Level of Care Code 62381 SUB INP/OBS CARE MIN Diagnoses History of nephrolithiasis Z87.442 Nausea & vomiting R11.2 Vomiting type: unspecified and not yet delivered in second trimester Z34.92 Symptomatic PVCs I49.3 Constipation K59.00 (2) Nausea & vomiting Vomiting type: unspecified Qualified Code(s): R11.2 - Nausea with vomiting, unspecified
[2023-10-04] MEDS: cephALEXin 500 MG CAP PO SCH (19:37)
[2023-10-04] MEDS: FAMOTIDINE 20 MG TAB PO SCH (19:38)
[2023-10-04] MEDS: traZODone HCL 50 MG TAB PO SCH (19:42)
[2023-10-05] MEDS: HYDROmorphone INJ 1 MG/ML SYRINGE IV PRN ×9 (00:26→23:10)
[2023-10-05] MEDS: SODIUM CHLORIDE 0.9% 1,000 ML IV SCH ×3 (04:25→23:13)
[2023-10-05] MEDS: oxyCODONE HCL IR 5 MG TAB (IMMEDIATE RELEASE) PO PRN ×4 (05:12→21:43)
[2023-10-05] MEDS: METOPROLOL SUCC 25MG EXT REL TAB PO SCH (07:26)
[2023-10-05] MEDS: cephALEXin 500 MG CAP PO SCH ×2 (07:26→19:50)
[2023-10-05] MEDS: POLYETHYLENE (MIRALAX) 17 GM PACK PO SCH ×2 (07:26→19:54)
[2023-10-05] MEDS: PYRIDOXINE HCL 50 MG TAB PO SCH (07:26)
[2023-10-05] MEDS: buPROPion XL 300 MG TABCR PO SCH (07:26)
[2023-10-05] MEDS: DOCUSATE SODIUM 100 MG CAP PO SCH ×2 (07:27→19:54)
[2023-10-05] MEDS: PRENATAL VITAMIN 1 TAB PO SCH (07:27)
[2023-10-05] MEDS: TAMSULOSIN HCL 0.4 MG CAP PO SCH ×2 (07:27→19:50)
[2023-10-05] MEDS: FERROUS SULFATE 325 MG TAB PO SCH (07:27)
[2023-10-05] MEDS: FAMOTIDINE 20 MG TAB PO SCH ×2 (07:27→19:50)
[2023-10-05] MEDS: ONDANSETRON INJ 2 MG/ML 2 ML VIAL IV PRN (09:36)
--- NOTE | 2023-10-05 17:16 | Hospitalist Progress Note ---
Date of Service October 05, 2023 Assessment & Plan (1) History of nephrolithiasis: Plan: History of nephrolithiasis, renal colic in Recent admission for lithotripsy of 6 mm L uretal calculus with transfer to [place] for lithotripsy. [facility] [place] discharge summary reviewed. 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 This was discontinued on hospital day 3 and reinitiated on day 4 due to inadequate pain control. She received a course of betamethasone on 08/28 and 08/29 in anticipation of urologic procedure in the event of labor was triggered; 08/30 patient had urologic intervention with left ureteroscopy and left laser lithotripsy. Remained for 2 additional days for pain control and was discharged in stable condition. Daily heart tracings were normal. During prior admission she had a white count of 8K, and showed no evidence of either CANDY or UTI during admission. CT A/P here w/ nonobstructing bilateral nephrolithiasis-12 stones seen bilat kidneys. No ureteral calculi or hydronephrosis Renal US NEGATIVE for obstruction/hydro Urology consulted, no intervention at present. Recommends continue Pyridium for spasm pain. If became septic/febrile, rec for transfer-none of this so far and renal function is normal. She has passed 9 kidney stones so far this admission Now with more persistent left flank and groin pain on 10/05 requiring IV Dilaudid and p.o. oxycodone even at higher dose from previous Increase IVFs to 150mL/hr and increase Flomax to 0.4mg po bid to hopefully pass a stone if it is stuck Continue Tylenol, heating pad as needed for pain UA initially without evidence of infection, but repeat UA +/- but urine culture with mixed tom on 09/28 and negative on 10/01 Received 3 doses of ceftriaxone and converted to p.o. keflex to finish out 7-day course on 10/08 Zofran as needed for nausea Check CBC, BMP in AM (2) Nausea & vomiting: Plan: Secondary to pain from multiple kidney stones CTAP on admission no mention of cholelithiasis but does mention distended GB. RUQ negative for acute thierry LFTs wnl Continue antiemetics w/ zofran COntinue Pepcid 20mg po bid scheduled (3) and not yet delivered in second trimester: Plan: 28-year-old female EDC 11/20/2023 now at 30 weeks gestational age Daily NST per MANAGER CALL, reassuring vitamin/Fe replacement ordered Updated her OB Dr. Marquis on 10/05 (4) Symptomatic PVCs: Plan: Metoprolol was increased to 25 mg daily for sinus tachycardia in the 120s to 130s which is likely secondary to pain ECHO w/ normal EF, no wma (5) Constipation: Plan: Continue bowel regimen with docusate and MiraLAX scheduled twice daily as she now has hemorrhoids General surgery was consulted previously for hemorrhoids-recommends conservative treatment and hydrocortisone MT as needed Moved bowels large amount 10/04 Plan DVT prophylaxis: Ambulation encouraged, SCDs, TEDs Dispo: Continued stay until pain can be controlled with oral analgesics or is resolved but unfortunately has at least 12 kidney stones visualized on initial CT scan Admission and Anticipated Discharge Date Admission Date: September 28, 2023 Subjective Pt having more persistently severe pain in LLQ and left groin today and has not passed any stones except a couple pieces of sand material. Urine is darker in color and smells very badly she said. Still requiring large amounts of IV dilaudid and po oxycodone and said the dilaudid sometimes only lasts 5 min Physical Exam Constitutional: WD/WN, vitals as above Respiratory: normal respiratory effort, lungs clear to auscultation Cardiovascular: Rate/Rhythm: regular rate and regular rhythm Extremities: + edema (Trace pitting edema of the legs bilaterally) Gastrointestinal (Abdomen): Inspection/Auscultation: normal bowel sounds; + abdomen abnormal to inspection (Gravid) Percussion/Palpation: + abdomen tender (left lower abd,no guarding) and abdomen soft Psychiatric: A+Ox3, euthymic affect Results & Data Results & Data Vital Signs (Past 12 Hours) Vital Signs Temp Pulse Resp BP Pulse Ox O2 Del Method 10/05/23 14:12 36.5 C 73 16 122/79 100 Room Air 10/05/23 07:31 36.5 C 90 16 101/67 99 Room Air PG Care Time/CCT Total # of Minutes Spent Total Time Spent with Patient: Total time spent is greater than 50% in coordination of care (as documented) at patient's floor/unit and/or counseling patient: Coding Level of Care Code 11658 SUB INP/OBS CARE MIN Diagnoses History of nephrolithiasis Z87.442 Nausea & vomiting R11.2 Vomiting type: unspecified and not yet delivered in second trimester Z34.92 Symptomatic PVCs I49.3 Constipation K59.00 (2) Nausea & vomiting Vomiting type: unspecified Qualified Code(s): R11.2 - Nausea with vomiting, unspecified
[2023-10-05] MEDS: traZODone HCL 50 MG TAB PO SCH (19:54)
[2023-10-06] MEDS: ONDANSETRON INJ 2 MG/ML 2 ML VIAL IV PRN (03:33)
[2023-10-06] MEDS: HYDROmorphone INJ 1 MG/ML SYRINGE IV PRN ×8 (03:33→23:13)
[2023-10-06] MEDS: SODIUM CHLORIDE 0.9% 1,000 ML IV SCH ×3 (05:17→19:27)
[2023-10-06] MEDS: oxyCODONE HCL IR 5 MG TAB (IMMEDIATE RELEASE) PO PRN ×4 (05:17→19:32)
[2023-10-06 06:26] LABS: Basophils # (auto) 0.01 K/uL (0.00-0.20); Basophils % (auto) 0.2 %; Eosinophils # (auto) 0.01 K/uL (0.00-0.50); Eosinophils % (auto) 0.2 %; Hematocrit (blood only) 30.2 % (37.0-47.0); Hemoglobin 9.7 g/dl (12.0-16.0); Immature Granulocytes # (auto) 0.01 K/uL (0.01-0.20); Immature Granulocytes % (auto) 0.2 %; Lymphocytes # (auto) 1.34 K/uL (1.20-3.40); Lymphocytes % (auto) 28.4 %; Mean Corpuscular Hemoglobin 29.1 pg (25.0-34.0); Mean Corpuscular Hgb Conc 32.1 g/dL (32.0-36.0); Mean Corpuscular Volume 90.7 fL (80.0-100.0); Mean Platelet Volume 10.6 fL (9.4-12.4); Monocytes # (auto) 0.61 K/uL (0.11-0.59); Monocytes % (auto) 12.9 %; Neutrophils # (auto) 2.74 K/uL (1.40-6.50); Neutrophils % (auto) 58.1 %; Platelet Count 162 K/uL (130-400); RDW Coefficient of Variation 13.7 % (11.5-14.5); RDW Standard Deviation 44.8 fL (36.4-46.3); Red Blood Count 3.33 M/uL (4.20-5.40); White Blood Count 4.72 K/ul (4.8-10.8)
[2023-10-06 06:42] LABS: Anion Gap 6 (3-11); BUN Creatinine Ratio 12.5 (10-20); Blood Urea Nitrogen 6 mg/dl (6-23); Calcium 7.8 mg/dl (8.6-10.3); Carbon Dioxide 23 mmol/L (21-32); Chloride 108 mmol/L (98-107); Creatinine Clr Calc Pharmacy 183.7 ml/min; Est GFR (African American) > 150.0 ml/min; Est GFR (Non-African American) 132.6 ml/min; Glucose 132 mg/dl (70-99(Fasting)); Magnesium 1.4 mg/dl (1.7-2.4); Potassium 3.6 mmol/L (3.5-5.1); Sodium 137 mmol/L (136-145)
[2023-10-06] MEDS: PYRIDOXINE HCL 50 MG TAB PO SCH (07:21)
[2023-10-06] MEDS: TAMSULOSIN HCL 0.4 MG CAP PO SCH ×2 (07:21→19:28)
[2023-10-06] MEDS: POLYETHYLENE (MIRALAX) 17 GM PACK PO SCH ×2 (07:21→19:32)
[2023-10-06] MEDS: DOCUSATE SODIUM 100 MG CAP PO SCH ×2 (07:21→19:32)
[2023-10-06] MEDS: cephALEXin 500 MG CAP PO SCH ×2 (07:22→19:27)
[2023-10-06] MEDS: METOPROLOL SUCC 25MG EXT REL TAB PO SCH (07:22)
[2023-10-06] MEDS: PRENATAL VITAMIN 1 TAB PO SCH (07:22)
[2023-10-06] MEDS: FAMOTIDINE 20 MG TAB PO SCH ×2 (07:22→19:28)
[2023-10-06] MEDS: FERROUS SULFATE 325 MG TAB PO SCH (07:22)
[2023-10-06] MEDS: buPROPion XL 300 MG TABCR PO SCH (07:23)
[2023-10-06] MEDS: MAGNESIUM SULFATE / D5W 1 GM/100 ML BAG IV SCH ×2 (12:23→14:28)
--- NOTE | 2023-10-06 16:52 | Hospitalist Progress Note ---
Date of Service October 06, 2023 Assessment & Plan (1) History of nephrolithiasis: Plan: History of nephrolithiasis, renal colic in Recent admission for lithotripsy of 6 mm L uretal calculus with transfer to [place] for lithotripsy. [facility] [place] reviewed. * On arrival to their facility she was treated conservatively with Flomax, IV, and Dilaudid DISMANTLER. This was discontinued on hospital day 3 and reinitiated on day 4 due to inadequate pain control. She received a course of betamethasone on 08/28 and 08/29 in anticipation of urologic procedure in the event of labor was triggered; 08/30 patient had urologic intervention with left ureteroscopy and left laser lithotripsy. Remained for 2 additional days for pain control and was discharged in stable condition. Daily heart tracings were normal. During prior admission she had a white count of 8K, and showed no evidence of either CANDY or UTI during admission. CT A/P here w/ nonobstructing bilateral nephrolithiasis-12 stones seen bilat kidneys. No ureteral calculi or hydronephrosis Renal US NEGATIVE for obstruction/hydro Urology consulted, no intervention at present. Recommends continue Pyridium for spasm pain. If became septic/febrile, rec for transfer-none of this so far and renal function is normal. She has passed 9 kidney stones so far this admission Now with more persistent left flank and groin pain since 10/05 requiring IV Dilaudid and p.o. oxycodone even at higher dose from previous Increased IVFs to 150mL/hr and increased Flomax to 0.4mg po bid on 10/05 to hopefully pass a stone if it is stuck Continue Tylenol, heating pad as needed for pain Plan to repeat renal ultrasound to look for hydronephrosis on 10/07-if hydronephrosis is present, may have to consider repeat ureteroscopy if stone does not pass UA initially without evidence of infection, but repeat UA +/- but urine culture with mixed tom on 09/28 and negative on 10/01 Received 3 doses of ceftriaxone and converted to p.o. keflex to finish out 7-day course on 10/08 Zofran as needed for nausea Check CBC, BMP, and magnesium in AM (2) Nausea & vomiting: Plan: Secondary to pain from multiple kidney stones CTAP on admission no mention of cholelithiasis but does mention distended GB. 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 Marquis on 10/05 (4) Hypomagnesemia: Plan: Persistently low, could be from high urine output Start magnesium 400 Mg p.o. once daily Give 2 g of IV magnesium Follow level in the morning (5) Symptomatic PVCs: Plan: Metoprolol was increased to 25 mg daily for sinus tachycardia in the 120s to 130s which is likely secondary to pain ECHO w/ normal EF, no wma (6) Constipation: Plan: Continue bowel regimen with docusate and MiraLAX scheduled twice daily as she now has hemorrhoids General surgery was consulted previously for hemorrhoids-recommends conservative treatment and hydrocortisone [place] as needed Moved bowels large amount 10/04 and again on 10/05 Plan DVT prophylaxis: Ambulation encouraged, SCDs, TEDs Dispo: Continued stay until pain can be controlled with oral analgesics or is resolved but unfortunately has at least 12 kidney stones visualized on initial CT scan Admission and Anticipated Discharge Date Admission Date: September 28, 2023 Subjective Still having the same left lower quadrant and groin pain and did have some left CVA tenderness and pain that started last evening that is intermittent. She is continuing to use frequent doses of IV Dilaudid and p.o. oxycodone as well as a heating pad to the back area. The color of her urine is not as dark today. She has not really seen any stones in her urine today except may be a little bit of sand material this morning. No blood in the stool. The baby is moving well. Physical Exam Constitutional: WD/WN, vitals as above Respiratory: normal respiratory effort, lungs clear to auscultation Cardiovascular: Rate/Rhythm: regular rate and regular rhythm Extremities: + edema (Trace pitting edema of the legs bilaterally) Gastrointestinal (Abdomen): Inspection/Auscultation: + abdomen abnormal to inspection (Gravid) Psychiatric: A+Ox3, euthymic affect Results & Data Results & Data Vital Signs (Past 12 Hours) Vital Signs Temp Pulse Resp BP BP Pulse Ox O2 Del Method 10/06/23 14:38 36.6 C 94 H 16 119/72 97 Room Air 10/06/23 07:06 36.3 C L 80 16 117/66 98 Room Air Laboratory Results CBC, BMP, magnesium reviewed PG Care Time/CCT Total # of Minutes Spent Total Time Spent with Patient: Total time spent is greater than 50% in coordination of care (as documented) at patient's floor/unit and/or counseling patient: Coding Level of Care Code 90961 SUB INP/OBS CARE 2/35MIN Diagnoses History of nephrolithiasis Z87.442 Nausea & vomiting R11.2 Vomiting type: unspecified and not yet delivered in second trimester Z34.92 Hypomagnesemia E83.42 Symptomatic PVCs I49.3 Constipation K59.00 (2) Nausea & vomiting Vomiting type: unspecified Qualified Code(s): R11.2 - Nausea with vomiting, unspecified
[2023-10-06] MEDS: traZODone HCL 50 MG TAB PO SCH (19:32)
[2023-10-07] MEDS: HYDROmorphone INJ 1 MG/ML SYRINGE IV PRN ×9 (01:49→22:42)
[2023-10-07] MEDS: SODIUM CHLORIDE 0.9% 1,000 ML IV SCH ×4 (01:49→20:50)
[2023-10-07] MEDS: oxyCODONE HCL IR 5 MG TAB (IMMEDIATE RELEASE) PO PRN ×3 (05:52→19:57)
[2023-10-07 07:10] LABS: Basophils # (auto) 0.01 K/uL (0.00-0.20); Basophils % (auto) 0.2 %; Eosinophils # (auto) 0.02 K/uL (0.00-0.50); Eosinophils % (auto) 0.4 %; Hematocrit (blood only) 31.1 % (37.0-47.0); Immature Granulocytes # (auto) 0.02 K/uL (0.01-0.20); Immature Granulocytes % (auto) 0.4 %; Lymphocytes # (auto) 1.42 K/uL (1.20-3.40); Lymphocytes % (auto) 31.2 %; Mean Corpuscular Hemoglobin 29.3 pg (25.0-34.0); Mean Corpuscular Hgb Conc 32.2 g/dL (32.0-36.0); Mean Corpuscular Volume 91.2 fL (80.0-100.0); Mean Platelet Volume 10.6 fL (9.4-12.4); Monocytes # (auto) 0.58 K/uL (0.11-0.59); Monocytes % (auto) 12.7 %; Neutrophils % (auto) 55.1 %; Platelet Count 162 K/uL (130-400); RDW Standard Deviation 45.3 fL (36.4-46.3); Red Blood Count 3.41 M/uL (4.20-5.40); White Blood Count 4.55 K/ul (4.8-10.8)
[2023-10-07 07:27] LABS: Anion Gap 5 (3-11); Blood Urea Nitrogen 4 mg/dl (6-23); Calcium 7.8 mg/dl (8.6-10.3); Carbon Dioxide 23 mmol/L (21-32); Chloride 110 mmol/L (98-107); Creatinine Clr Calc Pharmacy 220.4 ml/min; Est GFR (African American) > 150.0 ml/min; Est GFR (Non-African American) 140.8 ml/min; Glucose 80 mg/dl (70-99(Fasting)); Magnesium 1.5 mg/dl (1.7-2.4); Potassium 3.7 mmol/L (3.5-5.1); Sodium 138 mmol/L (136-145)
[2023-10-07] MEDS: TAMSULOSIN HCL 0.4 MG CAP PO SCH ×2 (07:37→19:58)
[2023-10-07] MEDS: METOPROLOL SUCC 25MG EXT REL TAB PO SCH (07:37)
[2023-10-07] MEDS: buPROPion XL 300 MG TABCR PO SCH (07:37)
[2023-10-07] MEDS: cephALEXin 500 MG CAP PO SCH ×2 (07:37→19:58)
[2023-10-07] MEDS: PRENATAL VITAMIN 1 TAB PO SCH (07:37)
[2023-10-07] MEDS: PYRIDOXINE HCL 50 MG TAB PO SCH (07:37)
[2023-10-07] MEDS: MAGNESIUM OXIDE 400 MG TAB PO SCH (07:38)
[2023-10-07] MEDS: FAMOTIDINE 20 MG TAB PO SCH ×2 (07:38→19:58)
[2023-10-07] MEDS: FERROUS SULFATE 325 MG TAB PO SCH (07:38)
[2023-10-07] MEDS: POLYETHYLENE (MIRALAX) 17 GM PACK PO SCH ×2 (07:40→19:58)
[2023-10-07] MEDS: DOCUSATE SODIUM 100 MG CAP PO SCH ×2 (07:40→20:01)
--- NOTE | 2023-10-07 07:52 | Ultrasound Report ---
RENAL ULTRASOUND HISTORY: assess for hydronephrosis, stones COMPARISON: Renal ultrasound 09/27/2023. FINDINGS: Right kidney: 11.5 cm. A few stones again noted measuring up to 6 mm. No hydronephrosis. Normal corti comedullary differentiation and cortical thickness. Left kidney: 11.1 cm. A few stones again noted measuring up to 6 mm. No hydronephrosis. Normal cortic omedullary differentiation and cortical thickness. Bladder: No bladder wall thickening. The bilateral ureteral jets were identified. IMPRESSION: Bilateral nephrolithiasis. No hydronephrosis. ACT 112: Negative or not required by law. Electronically signed by: Triston Castillo M.D. 10/07/2023 7:50 AM
[2023-10-07] MEDS: MAGNESIUM SULFATE / D5W 1 GM/100 ML BAG IV SCH ×2 (08:20→09:58)
[2023-10-07] MEDS: ONDANSETRON INJ 2 MG/ML 2 ML VIAL IV PRN ×2 (08:47→16:01)
--- NOTE | 2023-10-07 19:04 | Hospitalist Progress Note ---
Date of Service October 07, 2023 Assessment & Plan (1) History of nephrolithiasis: Plan: History of nephrolithiasis, renal colic in Recent admission for lithotripsy of 6 mm L uretal calculus with transfer to [place] for lithotripsy. [facility] [place] summary reviewed. 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 This was discontinued on hospital day 3 and reinitiated on day 4 due to inadequate pain control. She received a course of betamethasone on 08/28 and 08/29 in anticipation of urologic procedure in the event of labor was triggered; 08/30 patient had urologic intervention with left ureteroscopy and left laser lithotripsy. Remained for 2 additional days for pain control and was discharged in stable condition. Daily heart tracings were normal. During prior admission she had a white count of 8K, and showed no evidence of either CANDY or UTI during admission. CT A/P here w/ nonobstructing bilateral nephrolithiasis-12 stones seen bilat kidneys. No ureteral calculi or hydronephrosis Renal US NEGATIVE for obstruction/hydro Urology consulted, no intervention at present. Recommends continue Pyridium for spasm pain. If became septic/febrile, rec for transfer-none of this so far and renal function is normal. Repeat renal ultrasound today negative for obstruction or hydronephrosis. There is mention of kidney stones in the bilateral kidneys up to 6 mm She has passed 9 kidney stones so far this admission Now with more persistent left flank and groin pain since 10/05 requiring IV Dilaudid and p.o. oxycodone even at higher dose from previous Continue IVFs to 150mL/hr. Flomax to 0.4mg po bid on 10/05 to hopefully pass a stone if it is stuck Continue Tylenol, heating pad as needed for pain UA initially without evidence of infection, but repeat UA +/- but urine culture with mixed tom on 09/28 and negative on 10/01 Received 3 doses of ceftriaxone and converted to p.o. keflex to finish out 7-day course on 10/08 Zofran as needed for nausea Check CBC, BMP, and magnesium daily (2) Nausea & vomiting: Plan: Vomiting has resolved but patient continues to have nausea. This seems to be well-controlled with Zofran Secondary to pain from multiple kidney stones CTAP on admission no mention of cholelithiasis but does mention distended GB. RUQ negative for acute thierry LFTs wnl on 10/01/2023. Will recheck LFTs in the morning with a.m. labs Continue antiemetics w/ zofran Continue Pepcid 20mg po bid scheduled (3) and not yet delivered in second trimester: Plan: 28-year-old female EDC 11/20/2023 now at 30 weeks gestational age Daily NST per COTTON GROWER, reassuring vitamin/Fe replacement ordered Updated her OB Dr. Marquis on 10/05 (4) Hypomagnesemia: Plan: Persistently low, could be from high urine output. Patient denies diarrhea or other significant stool movements Continue magnesium 400 Mg p.o. once daily Give 2 g of IV magnesium again today Potassium Follow daily labs Discussed with COTTON GROWER today due to patient's . No concern about low magnesium with at this time. Continue to replete as possible (5) Symptomatic PVCs: Plan: Metoprolol was increased to 25 mg daily for sinus tachycardia in the 120s to 130s which is likely secondary to pain ECHO w/ normal EF, no wma (6) Constipation: Plan: Continue bowel regimen with docusate and MiraLAX scheduled twice daily as she now has hemorrhoids General surgery was consulted previously for hemorrhoids-recommends conservative treatment and hydrocortisone [place] as needed Moved bowels large amount 10/04 and again on 10/05 and reports continued bowel movements daily Plan DVT prophylaxis: Ambulation encouraged, SCDs, TEDs Dispo: Continued stay until pain can be controlled with oral analgesics or is resolved but unfortunately has at least 12 kidney stones visualized on initial CT scan which are still identified on renal ultrasound today Admission and Anticipated Discharge Date Admission Date: September 28, 2023 Subjective Attending: Dr. Pickering This is a 28-year-old female that was admitted for pain control for bilateral nephrolithiasis. She is 30 weeks . She has passed several stones throughout this hospital stay. Renal ultrasound this morning shows persistent kidney stones up to 6 mm in bilateral kidneys. There is no evidence of hydronephrosis with either kidney. Patient denies any gross hematuria. She does have a persistently low magnesium at 1.5. She is currently on magnesium oxide 400 mg p.o. daily. She has also been repleted with IV magnesium sulfate with no effect. Other electrolytes are balanced Patient continues to require IV Dilaudid as well as p.o. oxycodone for pain relief. She continues to report pain in her left flank that radiates down to her left groin and into her vagina. Patient also complains of nausea associated with increased bouts of pain. She denies any vomiting or aspiration. OB nurses have been checking on the status of the baby and there apparently no issues. Patient does feel frequent movement of the baby throughout the day Patient denies fever, sweats, rigors. No diarrhea. Daily bowel movement. No other acute complaints. Review of Systems 2 Review of Systems: A total of 10 systems was reviewed and is negative other than as listed in the HPI Physical Exam 2 Physical Exam: GENERAL : No acute distress. Patient demonstrates occasional jaunt of have pain but this seems to be well-controlled with current narcotic regimen EYES: No icterus, gaze conjugate NOSE: No evidence of epistaxis MOUTH: No lesions or candidiasis NECK: Supple LUNGS: CTA B/L, no wheezes, rales or rhonchi HEART: Regular, rate controlled ABDOMEN: Soft, NT, ND, BS Present EXTREMITIES: No LE edema, pedal pulses intact NEURO: A&OX3 Results & Data Results & Data Vital Signs (Past 12 Hours) Vital Signs Temp Pulse Resp BP Pulse Ox O2 Del Method 10/07/23 14:17 36.5 C 87 16 110/74 98 Room Air 10/07/23 07:02 36.6 C 82 18 111/66 98 Room Air Laboratory Results 10/07/23 06:29 10/07/23 06:29 Diagnostic Findings Renal Ultrasound 10/07/23 07:00 RENAL ULTRASOUND HISTORY: assess for hydronephrosis, stones COMPARISON: Renal ultrasound 09/27/2023. FINDINGS: Right kidney: 11.5 cm. A few stones again noted measuring up to 6 mm. No hydronephrosis. Normal corticomedullary differentiation and cortical thickness. Left kidney: 11.1 cm. A few stones again noted measuring up to 6 mm. No hydronephrosis. Normal corticomedullary differentiation and cortical thickness. Bladder: No bladder wall thickening. The bilateral ureteral jets were identified. IMPRESSION: Bilateral nephrolithiasis. No hydronephrosis. ACT 112: Negative or not required by law. Electronically signed by: Triston Castillo M.D. 10/07/2023 7:50 AM PG Care Time/CCT Total # of Minutes Spent Total Time Spent with Patient: Total time spent is greater than 50% in coordination of care (as documented) at patient's floor/unit and/or counseling patient: 36 minutes Coding Level of Care Code 11171 SUB INP/OBS CARE 2/35MIN Diagnoses History of nephrolithiasis Z87.442 Nausea & vomiting R11.2 Vomiting type: unspecified and not yet delivered in second trimester Z34.92 Hypomagnesemia E83.42 Symptomatic PVCs I49.3 Constipation K59.00 Time Spent (min) 36 Comment 25 minutes of ccny-qm-fody time with the patient, plus chart review, d/w COTTON GROWER (2) Nausea & vomiting Vomiting type: unspecified Qualified Code(s): R11.2 - Nausea with vomiting, unspecified
[2023-10-07] MEDS: traZODone HCL 50 MG TAB PO SCH (20:01)
[2023-10-08] MEDS: HYDROmorphone INJ 1 MG/ML SYRINGE IV PRN ×9 (00:38→23:08)
[2023-10-08] MEDS: SODIUM CHLORIDE 0.9% 1,000 ML IV SCH ×3 (02:55→17:54)
[2023-10-08] MEDS: oxyCODONE HCL IR 5 MG TAB (IMMEDIATE RELEASE) PO PRN ×4 (02:57→22:31)
[2023-10-08 06:30] LABS: Hematocrit (blood only) 30.1 % (37.0-47.0); Hemoglobin 9.7 g/dl (12.0-16.0); Mean Corpuscular Hemoglobin 29.3 pg (25.0-34.0); Mean Corpuscular Hgb Conc 32.2 g/dL (32.0-36.0); Mean Corpuscular Volume 90.9 fL (80.0-100.0); Mean Platelet Volume 10.5 fL (9.4-12.4); Platelet Count 169 K/uL (130-400); RDW Coefficient of Variation 13.9 % (11.5-14.5); RDW Standard Deviation 45.6 fL (36.4-46.3); Red Blood Count 3.31 M/uL (4.20-5.40); White Blood Count 5.54 K/ul (4.8-10.8)
[2023-10-08 06:35] LABS: Alanine Aminotransferase 13 U/L (7-52); Albumin Level 2.7 gm/dl (3.4-5.0); Alkaline Phosphatase 74 U/L (34-104); Anion Gap 5 (3-11); Aspartate Aminotransferase 15 U/L (13-39); Bilirubin,Total 0.3 mg/dl (0.2-1.0); Blood Urea Nitrogen 4 mg/dl (6-23); Calcium 7.8 mg/dl (8.6-10.3); Carbon Dioxide 24 mmol/L (21-32); Chloride 109 mmol/L (98-107); Creatinine Clr Calc Pharmacy 176.3 ml/min; Est GFR (African American) > 150.0 ml/min; Est GFR (Non-African American) 130.8 ml/min; Glucose 73 mg/dl (70-99(Fasting)); Magnesium 1.5 mg/dl (1.7-2.4); Potassium 3.6 mmol/L (3.5-5.1); Sodium 138 mmol/L (136-145); Total Protein 5.3 gm/dl (6.0-8.3)
[2023-10-08] MEDS: buPROPion XL 300 MG TABCR PO SCH (07:27)
[2023-10-08] MEDS: TAMSULOSIN HCL 0.4 MG CAP PO SCH ×2 (07:28→20:49)
[2023-10-08] MEDS: FAMOTIDINE 20 MG TAB PO SCH ×2 (07:28→20:49)
[2023-10-08] MEDS: FERROUS SULFATE 325 MG TAB PO SCH (07:28)
[2023-10-08] MEDS: PYRIDOXINE HCL 50 MG TAB PO SCH (07:28)
[2023-10-08] MEDS: PRENATAL VITAMIN 1 TAB PO SCH (07:29)
[2023-10-08] MEDS: cephALEXin 500 MG CAP PO SCH (07:29)
[2023-10-08] MEDS: MAGNESIUM OXIDE 400 MG TAB PO SCH (07:29)
[2023-10-08] MEDS: METOPROLOL SUCC 25MG EXT REL TAB PO SCH (07:29)
[2023-10-08] MEDS: DOCUSATE SODIUM 100 MG CAP PO SCH ×2 (07:33→20:49)
[2023-10-08] MEDS: POLYETHYLENE (MIRALAX) 17 GM PACK PO SCH ×2 (07:33→20:50)
[2023-10-08] MEDS: ONDANSETRON INJ 2 MG/ML 2 ML VIAL IV PRN (10:50)
[2023-10-08 15:00] LABS: Phosphorus 3.5 mg/dl (2.5-4.9)
--- NOTE | 2023-10-08 15:19 | Hospitalist Progress Note ---
Date of Service October 08, 2023 Assessment & Plan (1) History of nephrolithiasis: Plan: History of nephrolithiasis, renal colic in Recent admission for lithotripsy of 6 mm L uretal calculus with transfer [place] for [place]otripsy[place] [facility] [place]. 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 This was discontinued on hospital day 3 and reinitiated on day 4 due to inadequate pain control. She received a course of betamethasone on 08/28 and 08/29 in anticipation of urologic procedure in the event of labor was triggered; 08/30 patient had urologic intervention with left ureteroscopy and left laser lithotripsy. Remained for 2 additional days for pain control and was discharged in stable condition. Daily heart tracings were normal. During prior admission she had a white count of 8K, and showed no evidence of either CANDY or UTI during admission. CT A/P here w/ nonobstructing bilateral nephrolithiasis-12 stones seen bilat kidneys. No ureteral calculi or hydronephrosis Renal US NEGATIVE for obstruction/hydro Urology consulted, no intervention at present. Recommends continue Pyridium for spasm pain. If became septic/febrile, rec for transfer-none of this so far and renal function is normal. Repeat renal ultrasound 10/07/2023 negative for obstruction or hydronephrosis. There is mention of kidney stones in the bilateral kidneys up to 6 mm She has passed multiple kidney stones so far this admission. Previous stones reported to be calcium oxalate. Large stone today sent for evaluation for composition Now with more persistent left flank and groin pain since 10/05 requiring IV Dilaudid and p.o. oxycodone even at higher dose from previous Continue IVFs to 150mL/hr. Flomax to 0.4mg po bid on 10/05 and Pyridium hopefully pass a stone if it is stuck Continue Tylenol, heating pad as needed for pain UA initially without evidence of infection, but repeat UA +/- but urine culture with mixed tom on 09/28 and negative on 10/01 Received 3 doses of ceftriaxone and converted to p.o. keflex to finish out 7-day course on 10/08. This will be discontinued today Zofran as needed for nausea Check CBC, BMP, and magnesium daily. Will also check phosphorus today. Since stone to reference lab to check composition Increase bowel regimen to include Colace 100 mg p.o. twice daily, senna daily, MiraLAX daily as needed. (2) Nausea & vomiting: Plan: Vomiting has generally resolved but patient continues to have nausea. This seems to be well-controlled with Zofran. Will change from IV Zofran to oral Zofran as symptoms are improving Secondary to pain from multiple kidney stones CTAP on admission no mention of cholelithiasis but does mention distended GB. RUQ negative for acute thierry LFTs wnl on 10/01/2023. Follow LFTs Continue antiemetics w/ zofran Continue Pepcid 20mg po bid scheduled (3) and not yet delivered in second trimester: Plan: 28-year-old female EDC 11/20/2023 now at 30 weeks gestational age Daily NST per UTILIZATION REVIEWER, reassuring vitamin/Fe replacement ordered Updated her OB Dr. Marquis on 10/05 Discussed again with OB. Ask them to evaluate possible other etiology for pain to make sure we are focused only on nephrolithiasis. Nurses will evaluate when doing NST (4) Hypomagnesemia: Plan: Persistently low, could be from high urine output. Patient denies diarrhea or other significant stool movements Continue magnesium 400 Mg p.o. once daily Has received multiple doses of magnesium sulfate with no effect. Check phosphorus levels Potassium 3.7 Follow daily labs Discussed with UTILIZATION REVIEWER due to patient's . No concern about low magnesium with at this time. Continue to replete as possible (5) Symptomatic PVCs: Plan: Metoprolol was increased to 25 mg daily for sinus tachycardia in the 120s to 130s which is likely secondary to pain ECHO w/ normal EF, no wma (6) Constipation: Plan: Continue bowel regimen with docusate and MiraLAX scheduled twice daily as she now has hemorrhoids. Will also add senna today General surgery was consulted previously for hemorrhoids-recommends conservative treatment and hydrocortisone [place] as needed Patient reports daily bowel movements until yesterday. No bowel movement today Plan DVT prophylaxis: Ambulation encouraged, SCDs, TEDs Dispo: Continued stay until pain can be controlled with oral analgesics or is resolved but unfortunately has at least 14 kidney stones. Visualized on initial CT scan which are still identified on renal ultrasound today Admission and Anticipated Discharge Date Admission Date: September 28, 2023 Supervising Physician Co-Signing Physician Notes The patient was not seen by me. The chart was reviewed. Case discussed with LION Melgar. Agree with assessment and plan Subjective Attending: Dr. Ambrose This is a 28-year-old female that was admitted for pain control for bilateral nephrolithiasis. She is 30 weeks . She has passed several stones throughout this hospital stay and passed another large stone today. There is no evidence of hydronephrosis with either kidney with renal ultrasound. Patient denies any gross hematuria. She does have a persistently low magnesium at 1.5. She is currently on magnesium oxide 400 mg p.o. daily. She has also been repleted with IV magnesium sulfate with no effect. Other electrolytes are balanced. Phosphorus is pending Patient continues to require IV Dilaudid as well as p.o. oxycodone for pain relief. In a 24-hour period on 10/07/2023, patient had 90 MME. She continues to report pain in her left flank that radiates down to her left groin and into her vagina. Patient also complains of nausea associated with increased bouts of pain. Patient does report some vomiting yesterday and states that it was somewhat bilious. OB nurses have been checking on the status of the baby and there apparently no issues. Patient does feel frequent movement of the baby throughout the day Patient denies fever, sweats, rigors. No diarrhea. Daily bowel movement. No other acute complaints. Review of Systems 2 Review of Systems: A total of 10 systems was reviewed and is negative other than as listed in the HPI Physical Exam 2 Physical Exam: GENERAL : No acute distress EYES: No icterus, gaze conjugate NOSE: No evidence of epistaxis MOUTH: No lesions or candidiasis NECK: Supple LUNGS: CTA B/L, no wheezes, rales or rhonchi HEART: Regular, rate controlled ABDOMEN: Soft, NT, ND, BS Present. No reproducible pain with deep palpation EXTREMITIES: No LE edema, pedal pulses intact NEURO: A&OX3 Results & Data Results & Data Vital Signs (Past 12 Hours) Vital Signs Temp Pulse Resp BP Pulse Ox O2 Del Method 10/08/23 15:02 36.5 C 76 15 133/91 100 Room Air 10/08/23 07:34 36.6 C 84 16 107/70 97 Room Air Laboratory Results 10/08/23 05:44 10/08/23 05:44 Laboratory Tests 10/08/23 05:44 Magnesium 1.5 L PG Care Time/CCT Total # of Minutes Spent Total Time Spent with Patient: Total time spent is greater than 50% in coordination of care (as documented) at patient's floor/unit and/or counseling patient: 35 minutes Coding Level of Care Code 11629 SUB INP/OBS CARE 2/35MIN Diagnoses History of nephrolithiasis Z87.442 Nausea & vomiting R11.2 Vomiting type: unspecified and not yet delivered in second trimester Z34.92 Hypomagnesemia E83.42 Symptomatic PVCs I49.3 Constipation K59.00 Time Spent (min) 35 (2) Nausea & vomiting Vomiting type: unspecified Qualified Code(s): R11.2 - Nausea with vomiting, unspecified
[2023-10-08] MEDS ORDERED: ONDANSETRON 4 MG OD TAB PO PRN (15:48)
[2023-10-08] MEDS: SENNA 8.6 MG TAB PO SCH (16:50)
[2023-10-08] MEDS: traZODone HCL 50 MG TAB PO SCH (20:49)
[2023-10-08 22:16] VITALS: PULSE 85; RESP 18
[2023-10-09] MEDS: SODIUM CHLORIDE 0.9% 1,000 ML IV SCH ×3 (00:29→14:05)
[2023-10-09] MEDS: HYDROmorphone INJ 1 MG/ML SYRINGE IV PRN ×3 (05:17→11:42)
[2023-10-09] MEDS: oxyCODONE HCL IR 5 MG TAB (IMMEDIATE RELEASE) PO PRN ×2 (06:10→10:34)
[2023-10-09 06:26] LABS: Hematocrit (blood only) 29.5 % (37.0-47.0); Hemoglobin 9.7 g/dl (12.0-16.0); Mean Corpuscular Hemoglobin 29.7 pg (25.0-34.0); Mean Corpuscular Hgb Conc 32.9 g/dL (32.0-36.0); Mean Corpuscular Volume 90.2 fL (80.0-100.0); Mean Platelet Volume 10.4 fL (9.4-12.4); Platelet Count 167 K/uL (130-400); RDW Coefficient of Variation 13.9 % (11.5-14.5); RDW Standard Deviation 45.9 fL (36.4-46.3); Red Blood Count 3.27 M/uL (4.20-5.40); White Blood Count 5.67 K/ul (4.8-10.8)
[2023-10-09 06:44] LABS: Anion Gap 7 (3-11); Blood Urea Nitrogen 4 mg/dl (6-23); Calcium 7.8 mg/dl (8.6-10.3); Carbon Dioxide 23 mmol/L (21-32); Chloride 108 mmol/L (98-107); Creatinine Clr Calc Pharmacy 220.4 ml/min; Est GFR (African American) > 150.0 ml/min; Est GFR (Non-African American) 140.8 ml/min; Glucose 80 mg/dl (70-99(Fasting)); Magnesium 1.4 mg/dl (1.7-2.4); Potassium 3.5 mmol/L (3.5-5.1); Sodium 138 mmol/L (136-145)
[2023-10-09 07:32] VITALS: BP 117/70; TEMP 97.5; O2SAT 97
[2023-10-09] MEDS: SENNA 8.6 MG TAB PO SCH (08:27)
[2023-10-09] MEDS: FAMOTIDINE 20 MG TAB PO SCH (08:29)
[2023-10-09] MEDS: buPROPion XL 300 MG TABCR PO SCH (08:29)
[2023-10-09] MEDS: FERROUS SULFATE 325 MG TAB PO SCH (08:29)
[2023-10-09] MEDS: METOPROLOL SUCC 25MG EXT REL TAB PO SCH (08:29)
[2023-10-09] MEDS: PYRIDOXINE HCL 50 MG TAB PO SCH (08:29)
[2023-10-09] MEDS: PRENATAL VITAMIN 1 TAB PO SCH (08:29)
[2023-10-09] MEDS: MAGNESIUM OXIDE 400 MG TAB PO SCH (08:29)
[2023-10-09] MEDS: TAMSULOSIN HCL 0.4 MG CAP PO SCH (08:30)
[2023-10-09] MEDS: DOCUSATE SODIUM 100 MG CAP PO SCH (08:32)
[2023-10-09] MEDS: POLYETHYLENE (MIRALAX) 17 GM PACK PO SCH (08:33)
--- NOTE | 2023-10-09 08:41 | Hospitalist Progress Note ---
Date of Service October 09, 2023 Assessment & Plan (1) History of nephrolithiasis: Plan: History of nephrolithiasis, renal colic in Recent admission for lithotripsy of 6 mm L uretal calculus with transfer to [place] for lithotripsy. [facility] discharge summary reviewed. * On arrival to their facility she was treated conservatively with Flomax, IV, and Dilaudid CAD SPECIALIST. This was discontinued on hospital day 3 and reinitiated on day 4 due to inadequate pain control. She received a course of betamethasone on 08/28 and 08/29 in anticipation of urologic procedure in the event of labor was triggered; 08/30 patient had urologic intervention with left ureteroscopy and left laser lithotripsy. Remained for 2 additional days for pain control and was discharged in stable condition. Daily heart tracings were normal. During prior admission she had a white count of 8K, and showed no evidence of either CANDY or UTI during admission. CT A/P here w/ nonobstructing bilateral nephrolithiasis-12 stones seen bilat kidneys. No ureteral calculi or hydronephrosis Renal US NEGATIVE for obstruction/hydro Urology consulted, no intervention at present. Recommends continue Pyridium for spasm pain. If became septic/febrile, rec for transfer-none of this so far and renal function is normal. Repeat renal ultrasound 10/07/2023 negative for obstruction or hydronephrosis. There is mention of kidney stones in the bilateral kidneys up to 6 mm She has passed multiple kidney stones so far this admission. Previous stones reported to be calcium oxalate. Large stone today sent for evaluation for composition Now with more persistent left flank and groin pain since 10/05 requiring IV Dilaudid and p.o. oxycodone even at higher dose from previous Continue IVFs to 150mL/hr. Flomax to 0.4mg po bid on 10/05 and Pyridium hopefully pass a stone if it is stuck Continue Tylenol, heating pad as needed for pain UA initially without evidence of infection, but repeat UA +/- but urine culture with mixed tom on 09/28 and negative on 10/01 Received 3 doses of ceftriaxone and converted to p.o. keflex to finish out 7-day course on 10/08. This will be discontinued today Zofran as needed for nausea Check CBC, BMP, and magnesium daily. Will also check phosphorus today. Since stone to reference lab to check composition Increase bowel regimen to include Colace 100 mg p.o. twice daily, senna daily, MiraLAX daily as needed. (2) Nausea & vomiting: Plan: Vomiting has generally resolved but patient continues to have nausea. This seems to be well-controlled with Zofran. Will change from IV Zofran to oral Zofran as symptoms are improving Secondary to pain from multiple kidney stones CTAP on admission no mention of cholelithiasis but does mention distended GB. RUQ negative for acute thierry LFTs wnl on 10/01/2023. Follow LFTs Continue antiemetics w/ zofran Continue Pepcid 20mg po bid scheduled (3) and not yet delivered in second trimester: Plan: 28-year-old female EDC 11/20/2023 now at 30 weeks gestational age Daily NST per TIRE SETTER, reassuring vitamin/Fe replacement ordered Updated her OB Dr. Marquis on 10/05 Discussed again with OB. Ask them to evaluate possible other etiology for pain to make sure we are focused only on nephrolithiasis. Nurses will evaluate when doing NST (4) Hypomagnesemia: Plan: Persistently low, could be from high urine output. Patient denies diarrhea or other significant stool movements Continue magnesium 400 Mg p.o. once daily Has received multiple doses of magnesium sulfate with no effect. Check phosphorus levels Potassium 3.7 Follow daily labs Discussed with TIRE SETTER due to patient's . No concern about low magnesium with at this time. Continue to replete as possible (5) Symptomatic PVCs: Plan: Metoprolol was increased to 25 mg daily for sinus tachycardia in the 120s to 130s which is likely secondary to pain ECHO w/ normal EF, no wma (6) Constipation: Plan: Continue bowel regimen with docusate and MiraLAX scheduled twice daily as she now has hemorrhoids. Will also add senna today General surgery was consulted previously for hemorrhoids-recommends conservative treatment and hydrocortisone [place] as needed Patient reports daily bowel movements until yesterday. No bowel movement today Plan DVT prophylaxis: Ambulation encouraged, SCDs, TEDs Dispo: Continued stay until pain can be controlled with oral analgesics or is resolved but unfortunately has at least 14 kidney stones. Visualized on initial CT scan which are still identified on renal ultrasound today Admission and Anticipated Discharge Date Admission Date: September 28, 2023 Results & Data Results & Data Vital Signs (Past 12 Hours) Vital Signs Temp Pulse Resp BP Pulse Ox O2 Del Method 10/09/23 07:30 97.5 F L 85 18 117/70 97 Room Air 10/08/23 22:15 97.9 F 85 18 120/81 98 Room Air PG Care Time/CCT Total # of Minutes Spent Total Time Spent with Patient: Total time spent is greater than 50% in coordination of care (as documented) at patient's floor/unit and/or counseling patient: Coding Diagnoses History of nephrolithiasis Z87.442 Nausea & vomiting R11.2 Vomiting type: unspecified and not yet delivered in second trimester Z34.92 Hypomagnesemia E83.42 Symptomatic PVCs I49.3 Constipation K59.00 (2) Nausea & vomiting Vomiting type: unspecified Qualified Code(s): R11.2 - Nausea with vomiting, unspecified
[2023-10-09] MEDS: MAGNESIUM SULFATE / D5W 1 GM/100 ML BAG IV SCH ×2 (09:07→11:09)
--- NOTE | 2023-10-09 16:51 | Discharge Summary ---
Date of Service October 09, 2023 Admission HPI Per Admitting Provider Damaris Leyva is a 28-year-old female DD 11/20/2023 at 28+6 wks with past medical history of symptomatic PVCs, kidney stone and obstruction of hydronephrosis s/p laser lithotripsy at [facility], anxiety/depression, lumbar pain, who presents for renal colic and pain control Rachel seen at the bedside. She reports she got home about 3 weeks ago and was doing well up until 2 days ago when she had recurrent left flank pain and low pelvic pain similar to her last kidney stone passage. She reports that she tried to ride this out at home but has become increasingly painful over the last 2 days and she has had recurrent nausea/vomiting several times this morning and presented to the ER for nausea control, fluid, and pain management.. Did discuss return home with observation and serial labs to monitor for obstruction, patient feels that she does not have a p.o. tolerance or adequate pain control for this Denies fever, chills, sweats. No chest pain or chest pressure. She has not had contractions and does not feel that she has had labor. Trace hematuria without dysuria. She has passed 1 small stone in her urine since being in the ER Medical History: Reviewed Medications: Reviewed Surgical History: Reviewed Family history: Reviewed Allergies: Reviewed Social History: No tobacco/ETOH use Code Status: Full Principal Diagnosis renal colic > 30 week intrauterine Discharge Exam awake and alert, no pain at the moment earlier some sharp pain now resolved Discharge Data Allergies Allergy/AdvReac Type Severity Reaction Status Date / Time aluminum [From Drysol] Allergy Intermediate Hives Verified 09/06/23 11:18 Consultations 09/25/23 12:28 ED Decision to Admit Stat 09/27/23 08:42 Consult Urology Routine 09/28/23 08:57 Consult Pain Management Routine 09/28/23 08:59 Consult Obstetrics Routine 10/02/23 11:36 Consult General Surgery Routine Ordered Studies 09/25/23 08:57 CT abd pelvis wo con Stat 09/27/23 08:57 US Renal Bladder [US renal/blad retro comp] Urgent 10/01/23 US gallbladder Routine 10/02/23 11:37 US venous doppler LE LT Routine 10/07/23 07:00 US renal/blad retro comp Routine Hospital Course (1) History of nephrolithiasis: History of nephrolithiasis, renal colic in Recent admission for lithotripsy of 6 mm L uretal calculus with transfer to [place] for lithotripsy. [facility] discharge summary reviewed. * On arrival to their facility she was treated conservatively with Flomax, IV, and Dilaudid APPRENTICE STYLIST. This was discontinued on hospital day 3 and reinitiated on day 4 due to inadequate pain control. She received a course of betamethasone on 08/28 and 08/29 in anticipation of urologic procedure in the event of labor was triggered; 08/30 patient had urologic intervention with left ureteroscopy and left laser lithotripsy. Remained for 2 additional days for pain control and was discharged in stable condition. Daily heart tracings were normal. During prior admission she had a white count of 8K, and showed no evidence of either CANDY or UTI during admission. CT A/P here w/ nonobstructing bilateral nephrolithiasis-multiple stones seen bilat kidneys. No ureteral calculi or hydronephrosis Renal US NEGATIVE for obstruction/hydro Urology consulted, no intervention at present. Recommend transfer if imminent intervention is needed Repeat renal ultrasound 10/07/2023 negative for obstruction or hydronephrosis. There is mention of kidney stones in the bilateral kidneys up to 6 mm She has passed multiple kidney stones so far this admission. Previous stones reported to be calcium oxalate. Pt may have some round ligament pain also contribiting without renal distress, candy, etc, will have home on po medications and hydration Continue Tylenol, heating pad as needed for pain UA initially without evidence of infection, but repeat UA +/- but urine culture with mixed tom on 09/28 and negative on 10/01 Received 3 doses of ceftriaxone and converted to p.o. keflex completed 7-day course on 10/08. (2) Nausea & vomiting: Vomiting has generally resolved but patient continues to have nausea. CTAP on admission no mention of cholelithiasis but does mention distended GB. RUQ negative for acute thierry LFTs wnl on 10/01/2023. (3) and not yet delivered in second trimester: 28-year-old female EDC 11/20/2023 now at 30 weeks gestational age Daily NST per RETAIL LOSS PREVENTION SPECIALIST, reassuring vitamin/Fe replacement ordered Updated her OB Dr. Marquis on 10/05, will have follow up after discharge (4) Hypomagnesemia: Persistently low, could be from high urine output. Continue magnesium 400 Mg p.o.bid (5) Symptomatic PVCs: Metoprolol was increased to 25 mg daily for sinus tachycardia in the 120s to 130s which is likely secondary to pain ECHO w/ normal EF, no wma Total Time Total Time Spent Total Time Spent (In Minutes): It required greater than 30 minutes to prepare this patient for discharge. Discharge Plan Discharge Items Patient Disposition: Home - Self-Care Reason For Visit: RENAL COLIC Discharge Diagnosis: kidney stone related pain in 31 week range gestation Activity: Per Instructions section Non-emergency contact: Primary Care Provider, Rock Picker and Urologist Call non-emergency contact if: your symptoms worsen Follow-up/Referrals: Luisa Roldan MD [Primary Care Provider] - Andrés Ramos DO [Surgeon] - Jewel Mark MD [Physician] - 10/12/23 8:45 am Diet: Regular Addtl Attending Provider Instructions: Your Care Instructions Kidney stones are formed when salts, minerals, and other substances normally found in the urine clump together. They can be as small as grains of sand or, rarely, as large as golf balls. While the stone is traveling through the ureter, which is the tube that carries urine from the kidney to the bladder, you will probably feel pain. The pain may be mild or very severe. You may also have some blood in your urine. As soon as the stone reaches the bladder, any intense pain should go away. If a stone is too large to pass on its own, you may need a medical procedure to help you pass the stone. The doctor has checked you carefully, but problems can develop later. If you notice any problems or new symptoms,get medical treatment right away. Follow-up care is a lowry part of your treatment and safety.Be sure to make and go to all appointments, and call your doctor if you are having problems. It's also a good idea to know your test results and keep a list of the medicines you take. How can you care for yourself at home? * Drink plenty of fluids. If you have kidney, heart, or liver disease and have to limit fluids, talk with your doctor before you increase the amount of fluids you drink. * Take pain medicines exactly as directed. Call your doctor if you think you are having a problem with your medicine. * If the doctor gave you a prescription medicine for pain, take it as prescribed. * you may also use tylenol for pain * Your doctor may ask you to strain your urine so that you can collect your kidney stone when it passes. You can use a kitchen strainer or a tea strainer to catch the stone. Store it in a plastic bag until you see your doctor again. Preventing future kidney stones Some changes in your diet may help prevent kidney stones. Depending on the cause of your stones, your doctor may recommend that you: * Drink plenty of fluids. If you have kidney, heart, or liver disease and have to limit fluids, talk with your doctor before you increase the amount of fluids you drink. * Limit coffee, tea, and alcohol. Also avoid grapefruit juice. * Do not take more than the recommended daily dose of vitamins C and D. * Avoid antacids such as Gaviscon, Maalox, Mylanta, or Tums. * Limit the amount of salt (sodium) in your diet. * Eat a balanced diet that is not too high in protein. * Limit foods that are high in a substance called oxalate, which can cause kidney stones. These foods include dark green vegetables, rhubarb, chocolate, wheat bran, nuts, cranberries, and beans. When should you call for help? Call your doctor nowor seek immediate medical care if: * You cannot keep down fluids. * Your pain gets worse. * You have a fever or chills. * You have new or worse pain in your back just below your rib cage (the flank area). * You have new or more blood in your urine. Watch closely for changes in your health, and be sure to contact your doctor if: * You do not get better as expected. Pending Studies at Discharge: No Stand-Alone Forms: My [facility] [place], Work/School Release, Smoking Cessation Medications and DC Order Prescriptions: New tamsulosin 0.4 mg Capsule 0.4 mg PO BID Qty: 20 0RF oxycodone 10 mg tablet 10 - 20 mg PO Q4H PRN (Reason: pain) Qty: 30 0RF magnesium oxide 400 mg (241.3 mg magnesium) tablet 400 mg PO BID Qty: 60 3RF Continued trazodone 50 mg tablet 50 mg PO HS ondansetron HCl 8 mg tablet 8 mg PO Q8H PRN (Reason: NAUSEA/VOMITING) pyridoxine (vitamin B6) [Vitamin B-6] 100 mg Tablet 100 mg PO DAILY Rx Instructions: PT UNSURE OF STRENGTH metoprolol succinate 25 mg tablet extended release 24 hr 12.5 mg PO QAM iron 18 mg Tablet 18 mg PO BID Rx Instructions: PT UNSURE OF STRENGTH bupropion HCl 300 mg tablet extended release 24 hr 300 mg PO QAM Gummies 400 mcg-35 mg- 25 mg-5 mg Tablet,Chewable 1 tab PO DAILY famotidine 20 mg tablet 20 mg PO QAM PRN (Reason: acid reflux ) docusate sodium 100 mg capsule 100 mg PO BID PRN (Reason: Constipation) polyethylene glycol 3350 [Miralax] 17 gram powder in packet 17 g PO BID PRN (Reason: Constipation) Discharge Orders: Discharge Order (Routine); Ordered 10/09/23 Ordered By: Lamont Pickering Admission Data Admit Date/Time: 09/28/23 09:24 Attending Provider: Lamont Pickering Admit Provider: Duke Vieira Primary Care Provider: Luisa Roldan Other Providers: Duke Vieira; Dalton Peña; Diana Nava; Jewel Kumar; Andrés Ramos Other Interventions: Discharge Summary Assessment (RN) Last Done: 10/09/23 14:54 Coding Level of Care Code 02078 INP/OBS DISCH >30 MIN Diagnoses History of nephrolithiasis Z87.442 Nausea & vomiting R11.2 Vomiting type: unspecified and not yet delivered in second trimester Z34.92 Hypomagnesemia E83.42 Symptomatic PVCs I49.3
== END 2023-10-09 17:21 | disposition home or self-care (01) | DRG 833 ==
LOC: ED 08:21 → 3N 08:21 → SUATTDRO 13:29 → 3N 16:07 → SUATTDRO 09-28 09:24 → 2W 09-28 15:00 → 3E 10-04 16:07

== ENCOUNTER 2023-10-15 14:39 | Inpatient (IN) ==
--- OUTSIDE RECORDS SUMMARY | 2023-10-15 14:47 | External Medical Summary | Summary of Care ---
Author Name Unknown Organization [facility] Address [address] [facility] [address] Phone [phone] Care Team Providers Care Store Receiving Specialist Name Role Phone Unavailable Primary Care Provider Unavailabl e Reason for Visit * Reason Onset Date Comments Advice 10/11/2023 Please discuss w ith senior compensation analyst provider. Encounter Details Date Type Department Care Team (Late st Contact Info) Description 10/11/2023 [facility]phone [facility] [address] [place] [id number] Jordon Marquis MD [address] [place] [phone] Advice (Please discuss with senior compensation analyst provid... Allergies No known active allergiesdocumented as of this encounter (statuses as of 10/12/2023) Medications Medication Sig Dispensed Refills Start Date [...] as of this encounter (statuses as of 10/12/2023) Active Problems Problem Noted Date Diagnosed Date [...] lyrica and baclofen with KOP. Planning just primary health care nurse and tylenol prn Thyroiditis 02/03/2015 Hyperthyroidism 01/25/2015 Estimated Date of Delivery Comme nts Yes 12/10/2023 Based on last me nstrual period of 03/05/2023 documented as of this encounter (statuses as of 10/12/2023) Resolved Problems Problem Noted Date Diagnosed Date Resolved Date Acute vaginitis 05/09/2016 01/17/2018 Vitamin D deficiency 03/10/2016 018 Polyhydramnios, antepartum complication 09/29/2014 10/23/2014 Overview: 09/24/14, POP = 27.6. Pt inpatient at [facility] currently. Attending (Dr. Sorensen) aware. INFORMATION 09/21/2014 10/23/2014 Overview: Scan on 09/17/14; POP; 24.9 , normal first 03/03/201406/2015 Overview: Failed 50 gm glucola. Passed 3 hr GTT. Baby: "Vitor". GBS negative. Asthma, mild persistent 07/25/201201/13 COSTOCHONDRITIS 01/25/2010 03/03/2014 Acute URI 01/25/2010 03/03/2014 Cough 01/25/2010 03/03/2014 Fever 01/25/2010 03/03/2014 Routine medical exam 01/25/2010 018 documented as of this encounter (statuses as of 10/12/2023) Immunizations Name Administration Dates Next Due DTP Vaccine 1994,1994,1994 DTaP Dipth/Tet/Acell Pertussis (Infanrix), Peds 03/22/1999,12/19/1995 HIB PRP-OMP, 3 dose (Pedvax) 05/09/1995, 1994,1994,1993 HPV Vaccine, 9-Valent 08/13/2019 10/13/2019 Hepatitis B, 0-19 yrs 05/09/1995,1994,06/16 MMR - Measles/Mumps/Rubella Vaccine 03/22/1999,0 05/09/1995 OPV - Polio Virus Vaccine (Oral) 996,1994,1994,1993 Seasonal Influenza, PF, 6 M & above, IM , (FluLaval or Fluzone) 08/06/2019,07/29/2018 Seasonal Influenza, QUAD, wi th Preserv, [...] money to get more. Never true 04/30/2023 [place] Depression Scale Answer Date Recorded [place] Depression Scale Total 6 09/05/2023 The thought [...] encounter Miscellaneous Notes * Telephone Encounter - Spring De La Cruz, TRAFFIC SIGNAL MECHANIC - 10/11/2023 8:11 AM EST Phone call from pt. Pt stating was in hospital x 2 weeks for Kidney stones . Pt came home 10/09. Pt calling reporting that she has not been able to keep any foods or fluid down since coming home. She states is vomiting every time she eats or drinks anything. Pt also reports diarrhea, intermittent hot flashes, intermittent chills and no appetite. Denies any UTI symptoms. Did pass multiple Kidney stones while at the hospital. Has not taken her tempeture because she does not have a thermometer. Pt currently 31 weeks 3 days . Pt denies any LOF, Contractions or vaginal bleeding. Does report movement, but " feels like he is not moving as much". Advised pt to be seen in ER for evaluation. Pt agreeable. Carmen singh pt. Please review and advise further Spring De La Cruz LPN 10/11/2023 8:19 AM documented in this encounter Plan of Treatment Upcoming Encounters Date Type Department Care Team (Late st Contact Info) Description 11/09/2023 8:30 AM EST Office Visit Cardiology, [facility] [address] [facility] [place] [address] Audra Noriega PA-C [address] [place] [address] Health Maintenance Due Date Last Done Comments [...]
--- OUTSIDE RECORDS SUMMARY | 2023-10-15 14:47 | External Medical Summary | Summary of Care ---
Author Name Unknown Organization [facility] Address [address] [place] [address] Phone [phone] Care Team Providers Care Vfx Artist Name Role Phone Unavailable Primary Care Provider Unavailabl e Reason for Visit * Reason Comments Return Visit Encounter Details Date Type Department Care Team (Late st Contact Info) Description 10/12/2023 8:45 AM EST Office Visit Gynecology/Obstetric s [facility] [place] [address] [place] [phone] Natalya Kumar CRNP [address] [place] [address] Encounter for supervision of other normal , unspecified trimester*; Hx of preeclampsia, prior , currently ; Adjustment disorder with anxiety; Tachycardia; History of hyperthyroidism; Vomiting of Allergies No known active allergiesdocumented as of [...] Daily(AM),Taking 1/2 tab daily, Reported on 09/19/2023 Promethazine HCl 25 MG Rectal Suppository (Phenergan)Indicati ons:Vomiting of Administer 1 Suppository into the rectum every 6 hours as needed for Nausea. 20 Each 0 10/12/2023 Active documented as of this encounter (statuses [...] and baclofen with KOP. Planning just pet care associate and tylenol prn Thyroiditis 02/03/2015 Hyperthyroidism 01/25/2015 [...] = 27.6. Pt inpatient at [facility] currently. Attending (Dr. Sorensen) aware. INFORMATION 09/21/2014 [...] money to get more. Never true 04/30/2023 [place] Depression Scale Answer Date Recorded [place] Depression Scale Total 6 09/05/2023 The thought [...] Sign Reading Time Taken Comments Blood Pressure - - Pulse - - Temperature - - Respiratory Rate - - Oxygen Saturation - - Inhaled Oxygen Concentration - - Weight 83.9 kg (185 lb) 10/12/2023 10:45 AM EST Height - - Body Mass Index 32.77 09/13/2023 10:35 AM EST documented in this encounter Progress Notes * Natalya Kumar CRNP - 10/12/2023 8:50 AM EST 31w4d Pt has been vomiting for 3 days. Went to ED yesterday morning, was finally seen in the evening. Given IVF and sent home. She states she was not given any Zofran. She is not able to keep anything down. Has tried zofran ODT as well. Having some BH contractions. Went back to ED this morning around 7am but was told there was a 8-9 hour wait, and she would be waiting in the waiting room. She decided to leave and come to this appt. Decision was made to send pt to [facility] for IV fluids and Zofran. Order faxed. Dr. Marquis aware. Rectal phenergan sent to pharmacy for pt as well. To call with no improvement in symptoms. She reports that baby is moving, though she admits that she isn't paying much attention to frequency of movement. She is far too sick for NST today, as she vomited 4 times during visit. Return in one week for close followup. LAURA Kyle documented in this encounter Plan of Treatment Upcoming Encounters Date Type Department Care Team (Late st Contact Info) Description 11/09/2023 8:30 AM EST Office Visit Cardiology, [facility] [address] [facility] [place] [address] Audra Noriega PA-C [address] [place] [address] [place] [address] Health Maintenance Due Date Last Done [...] of other endocrine, metabolic, and immunity disorders Vomiting of Unspecified vomiting of , unspecified as to episode of care documented in this encounter Advance Directives Latest Code Status on File Code Status Date Activated Date Inactivated Comments Full Code 09/28/2014 10:55 PM 09/30/2014 6:26 PM Th is order reflects the patients wishes and were consensually agreed upon.
--- OUTSIDE RECORDS SUMMARY | 2023-10-15 14:47 | External Medical Summary | Summary of Care ---
Author Name Unknown Organization [facility] Address [address] [place] [address] Phone [phone] Care Team Providers Care Inside Steward/Stewardess Name Role Phone Unavailable Primary Care Provider Unavailabl e Reason for Visit * Reason Comments Return Visit Encounter Details Date Type Department Care Team (Late st Contact Info) Description 10/12/2023 8:45 AM EST Office Visit Gynecology/Obstetric s Dayan Mendez [address] [place] [id number] Natalya Kumar CRNP [address] [place] [phone] Encounter for supervision of other normal , [...] lyrica and baclofen with KOP. Planning just director critical care and tylenol prn Thyroiditis 02/03/2015 Hyperthyroidism [...] 09/24/14, POP = 27.6. [place] [facility] [facility] [place] Attending (Dr. Sorensen) [...] money to get more. Never true 04/30/2023 Anton Depression Scale Answer Date Recorded Anton Depression Scale Total 6 09/05/2023 The thought [...] as of this encounter Progress Notes * Natalya Kumar [...] 11/09/2023 8:30 AM EST Office Visit Cardiology, [facility] [address] [facility] [place] [address] Audra Noriega PA-C [address] [place] [address] Health Maintenance Due Date [...]
--- OUTSIDE RECORDS SUMMARY | 2023-10-15 14:47 | External Medical Summary ---
Author Name Unknown Address Unknown Organization [id number] - [address] [facility] [place] [address] Laboratory Report Ordering Provider Test Date Status ELIGIO COATS 10/14/2023 00:26:00 Final Observation Date Value Abnormality Reference (Units ) Status SYNC LEUKOCYTES IN BLOOD BY AUTOMATED COUNT 10/14/2023 00:26:00 9.22 4.00-10.80 (K/uL) Final Segs 10/14/2023 00:26:00 73.9 40.0-75.0 (%) Final Lymphs % 10/14/2023 00:26:00 16.1 Below low normal 18.0-42.0 (%) Final Monos 10/14/2023 00:26:00 9.2 1.0-11.0 (%) Final Eosinophils 10/14/2023 00:26:00 0.1 0.0-6.0 (%) Final Basos 10/14/2023 00:26:00 0.3 0.0-2.0 (%) Final Immature Granulocyte, Percent 10/14/2023 00:26:00 0.4 0.0-2.0 (%) Final Absolute Segs 10/14/2023 00:26:00 6.81 1.80-7.70 (K/uL) Final Lymphs, absolute 10/14/2023 00:26:00 1.48 1.00-4.80 (K/ul) Final Monos, Abs 10/14/2023 00:26:00 0.85 0.00-1.10 (K/uL) Final Eos, Abs 10/14/2023 00:26:00 0.01 0.00-0.70 (K/uL) Final Basos, Abs 10/14/2023 00:26:00 0.03 0.00-0.20 (K/uL) Final Immature Granulocytes, Number 10/14/2023 00:26:00 0.04 0.00-0.20 (K/uL) Final Performing Location [facility] [place] [address] [facility] [id number]
--- OUTSIDE RECORDS SUMMARY | 2023-10-15 14:47 | External Medical Summary | Summary of Care ---
Author Name Unknown Organization [facility] Address [address] [place] [address] Phone [phone] Care Team Providers Care Patient Scheduling Manager Name Role Phone Unavailable Primary Care Provider Unavailabl e Reason for Visit * Reason Comments Vomiting Loss of Appetite * Auth/Cert Specialty Diagnoses / Procedures Referred By Leo t Referred To Contact Diagnoses related condition, unspecified trimester Referral ID Status Reason Start Date Expiration Date Visits Re quested Visits Authorized [id number] Encounter Details Date Type Department Care Team (Late st Contact Info) Description 10/13/2023 11:33 PM EST - 10/14/2023 8:36 AM EST Emergency [facility], OB Triage, Women's Lower Level 1st Floor [address] [place] [address] Danyel Kirk, DO [address] [place] [address] Dev Hebert MD [address] [place] [id number] Discharge Disposition: Home - Self Care Allergies No known active allergiesdocumented as of this encounter (statuses as of 10/14/2023) Medications Medication Sig Dispensed Refills Start Date [...] for Nausea. 20 Each 0 10/12/2023 Active Metoclopramide HCl 10 MG Oral Tablet (Reglan) Take 1 Tablet by mouth in the morning and 1 Tablet at noon and 1 Tablet in the evening and 1 Tablet before bedtime. 60 Tablet 1 10/14/2023 Active documented as of this encounter (statuses as of 10/14/2023) Active Problems Problem Noted Date Diagnosed Date Nausea and vomiting 10/14/2023 31 weeks gestation of 10/14/2023 History of hyperthyroidism 07/05/2023 Overview: No meds. [...] and baclofen with KOP. Planning just career counselor and tylenol prn Thyroiditis 02/03/2015 Hyperthyroidism 01/25/2015 Estimated Date of Delivery Comme nts Yes 12/10/2023 Based on last me nstrual period of 03/05/2023 documented as of this encounter (statuses as of 10/14/2023) Resolved Problems Problem Noted Date Diagnosed Date Resolved Date Acute vaginitis 05/09/2016 01/17/2018 Vitamin D deficiency 03/10/2016 018 Polyhydramnios, antepartum complication 09/29/2014 10/23/2014 Overview: 09/24/14, POP = 27.6. Pt inpatient at [facility] currently. Attending (Dr. [...] as of this encounter (statuses as of 10/14/2023) Immunizations Name Administration Dates Next Due DTP Vaccine 1994,1994,1994 DTaP Dipth/Tet/Acell Pertussis (Infanrix), Peds 03/22/1999,12/19/1995 HIB PRP-OMP, 3 dose (Pedvax) 05/09/1995, 1994,1994,1993 HPV Vaccine, 9-Valent 08/13/2019 10/13/2019 Hepatitis B, 0-19 yrs 05/09/1995,1994,09/2 03/1994 MMR - Measles/Mumps/Rubella Vaccine 03/22/1999,0 05/09/1995 OPV [...] money to get more. Never true 04/30/2023 [place] Depression Scale Answer Date Recorded [place] Depression Scale Total 6 09/05/2023 The thought [...] Sign Reading Time Taken Comments Blood Pressure 140/63 10/14/2023 4:15 AM EST Pulse 58 10/14/2023 4:15 AM EST Temperature 37.1 C (98.8 F) 10/14/2023 4:00 AM ES T Respiratory Rate 18 10/14/2023 4:15 AM EST Oxygen Saturation 100% 10/14/2023 2:00 AM EST Inhaled Oxygen Concentration - - Weight - - Height - - Body Mass Index - - documented in this encounter Discharge Instructions * Discharge Instr - AVS* Linden Mcrae DO - 10/14/2023 8:23 AM EST Discharge Date: 10/14/2023 You may call the department of Obstetrics and Gynecology during business hours for any questions ortest results. [facility] - [phone] After hours, you may call the number above and follow the prompts for more information on the next steps in your care. For acute concerns, you may also call the hospital directly and have the crochet machine operator page the POCKET ASSEMBLER physician computational linguist. The information below provides you with the instructions and the list of medications you need to betaking following discharge from the hospital. If you have any questions, please ask before leaving.Please carry this letter with you when you see your doctor in the clinic. If you have questions, you can reach us at the numbers above. Chief Complaint You came to triage for nausea and vomiting. Diagnosis Your primary diagnosis at discharge was nausea and vomiting in . Treatment Your treatment included IV fluids, Reglan, phenergan, zofran, and benadryl. You also had a nonstress test, which was reactive. Diet Normal diet Activity As tolerated Return to Work or School You may return to work or school tomorrow. Return Precautions Return to triage if you have painful contractions (greater than 6 to 8 per hour), severe abdominal pain, vaginal bleeding, leaking of fluid, or decreased movement (fewer than 10 movements in a 2 hour period). documented in this encounter Progress Notes * Megan Mancini [facility] - 10/14/2023 8:28 AM EST PHARMACY DISCHARGE MEDICATION RECONCILIATION REVIEW [address] [id number] Name: Damaris Leyva Location: [facility] OBTR/2 Date: 10/14/2023 Time: 8:28 AM This discharge medication reconciliation was reviewed by a pharmacist and no corrections or interventions were required. * Duke Walton MD - 10/14/2023 5:39 AM EST Obstetrics - Triage Note CHIEF COMPLAINT: nausea and vomiting HISTORY OF PRESENT ILLNESS: Damaris Leyva is a 28 year old at 31w6d by LMP (03/05/2023) and consistent with first trimester US (performed 04/16/2023 at 5w6d), which suggests Estimated Date of Delivery: 12/10/23. Patient initially presented to [facility] ED in the setting of nausea and vomiting. Patient recently admitted at OSH for evaluation and management of nephrolithiasis and was discharged on 10/10. Patient reported well controlled pain with opioid medications upon discharge from OSH. Since discharge, patient self discontinued opioid regimen and noted to have significant nausea and vomiting with inability to tolerate PO or clear liquid diet. She most recently presented to the [facility] ED where she was prescribed Zofran, IVF, benadryl and rectal phenergan. Workup significant for UA positive for ketones, CMP si gnificant for hypokalemia (3.4). Renal US ordered in ED with final read pending to evaluate for hydronephrosis or recurrent nephrolithiasis. Denies additional infectious symptoms, fevers, chills, additional GI symptoms. Reports no obstetricsymptoms today including LOF, contractions, VB and reports normal FM. Patient denies any change in vaginal discharge, dysuria, CP/SOB, palpitations, headaches, lightheadedness, cough, nausea, vomiting, diarrhea, constipation, fever, or chills. ROS as above, otherwise negative. RISK FACTORS: 1. Hx of PEC - normal PEC labs 2. Adjustment disorder 3. Hyperthyroidism 4. 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: [employer] Tobacco Use Smoking status: Former Types: Cigarettes Quit date: 02/11/2014 Years since quittin.6 Smokeless tobacco: Never Vaping Use Vaping Use: Never used Substance and Sexual Activity Alcohol use: Not Currently Comment: occ Drug use: No Sexual activity: Yes Partners: Male Other Topics Concern Not on file Social History Narrative 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 employer: [employer] education: [employer] service: no hobbies/interests: no transfusions: no exercise: no diet: no caodaism/protestant: no marital status: single children: 1 gc: 0 ggc: 0 pets: Dog and cat exposure to violence/threats/abuse: no things to improve: no FROM [place] Social Determinants of Health Financial Resource Strain: Not on file Food Insecurity: No Food Insecurity (04/30/2023) Hunger Vital Sign Worried About Running Out of Food in the Last Year: Never true Ran Out of Food in the Last Year: Never true Transportation Needs: Not on file Physical Activity: Not on file Stress: Not on file Social Connections: Not on file Intimate Partner Violence: Not on file Housing Stability: Not on file Patient has no known allergies. LABS: HGB (g/dL) Date Value 10/14/2023 11.3 (L) HEMOGLOBIN-OUTSIDE LAB (G/DL) Date Value 08/28/2023 10.4 (L) HCT (%) Date Value 10/14/2023 34.5 (L) PLT (K/uL) Date Value 10/14/2023 230 ABO (no units) Date Value 05/28/2023 O Rh (no units) Date Value 05/28/2023 Positive Rubella IgG Antibody (no units) Date Value 05/03/2023 Positive (A) HIV Antigen & Antibody (no units) Date Value 05/03/2023 Negative Hepatitis B Surface Antigen (no units) Date Value 05/03/2023 Negative Hepatitis C Antibody (no units) Date Value 05/03/2023 Negative Syphilis Screen Interpretation (no units) Date Value 09/19/2023 Nonreactive 50-g Gestational Glucose, 1 Hour (mg/dL) Date Value 09/19/2023 120 Chlamydia Trachomatis Result (no units) Date Value 05/03/2023 Negative Neisseria Gonorrhoeae Result (no units) Date Value 05/03/2023 Negative PHYSICAL EXAM: BP 140/63 | Pulse 58 | Temp 37.1 C (98.8 F) | Resp 18 | LMP 03/05/2023 | SpO2 100% General: NAD, AAO x 3, pleasant Heart: RRR, no murmurs/rubs/gallops, no edema Lungs: CTAB no wheezes/rhonchi/rales. Normal nonlabored breathing. Abd: Soft, gravid, non-tender uterus and abdomen, normoactive bowel sounds MSK: Appropriate ROM, no erythema, or calf tenderness Psych: no acute depression or anxiety Pelvic examination deferred. NST Review NST duration 20 minutes FHT: Baseline 140 bpm, moderate variability, Positive accelerations, no decelerations. [place]: irritability -contractions are less than 30 sec Interpretation: reactive ASSESSMENT Damaris Leyva is a 28 year old at 31w6d with nausea and vomiting s/p hospital admission for nephrolithiasis. Patient treated with IVF, Reglan, Benadryl, Zofran and Pepcid in triage with moderate improvement of symptoms overnight. Upon reexamination, patient able to tolerate clear liquids andPO diet. Will sign patient out to the night team for further reevaluation and management. PLAN 1. 31w6d - Patient instructed on comfort measures in - Reactive NST - RPN scheduled and patient encouraged to keep this appointment. - Discharge to home --- Given return precautions: return to triage if painful contractions >6-8/hr, severe abdominal pain, vaginal bleeding, LOF, or decreased movement (fewer than 10 movements in 2hr period). Addendum: On reevaluation, patient is still experiencing some nausea but no vomiting. She state the medications she was given while here did help improve her symptoms. Patient is a candidate for discharge and will send Reglan to her pharmacy. She has all of her other medications at home already. This patient's history, physical exam, assessment and plan of care were reviewed and discussed withthe OB team. I have discussed the patient's management with the resident and agree with the findings and plan, unless otherwise documented below. Please refer to the documented findings and plan of care in the resident note. This patient's visit today consisted of a service. I have reviewed the medical history,physical examination, diagnosis, and plan, as performed by the trainee. I have reviewed and agree with the diagnostic interpretation by the resident. documented in this encounter ED Notes * Danyel Kirk, - 10/14/2023 5:03 AM EST HISTORY OF PRESENT ILLNESS Damaris Leyva is a 28 year old female who presents to the ED for evaluation of Vomiting and Loss of Appetite. The patient was seen at 10/13/23 2340. Patient is a 28-year-old female, currently 32 weeks , coming into the emergency room for evaluation of vomiting. History provided by patient's who is at bedside. Patient reports that she was recently admitted at an outside hospital for evaluation and management of kidney stones. Shestates that during this 2 week. She did receive multiple doses of narcotics which she stopped proximally 4-5 days ago. She states that since then she has been experiencing multiple episodes of vomiting, diarrhea. No fevers. No upper respiratory symptoms. No chest pain or shortness of breath. Patient does note that she has been spending a lot of time in the bathtub and has been experiencing some mild dysuria recently. Patient was seen in the emergency room 2 days ago for symptoms at which time she received IV fluids and was discharged home. She was seen in OB Clinic yesterday where she was prescribed rectal Phenergan and again received IV fluids. Patient reports that despite the rectal Phenergan she is still having multiple episodes of vomiting, prompting return evaluation today. No sick co ntacts at home. Patient states that she was told that she could be withdrawing from the oxycodone that was used during her last admission. The patient's allergies, past history, and medications were reviewed. PHYSICAL EXAM Initial Vitals (see all): BP 132/72 | Pulse 58 | Resp 18 | Temp 98.8 | O2 99 %, Room Air, None | Weight 83.92 kg | Height 160cm | BMI 32.77 kg/m2 Initial Pain Assessment (see all): 0 (no pain)/10 ([facility] Adult Scale 0-10) Physical Exam Constitutional: General: She is in acute distress (uncomfortable appearing). Appearance: Normal appearance. She is normal weight. She is not ill-appearing or toxic-appearing. HENT: Head: Normocephalic. Right Ear: External ear normal. Left Ear: External ear normal. Nose: Nose normal. Mouth/Throat: Mouth: Mucous membranes are moist. Pharynx: Oropharynx is clear. Eyes: Extraocular Movements: Extraocular movements intact. Conjunctiva/sclera: Conjunctivae normal. Cardiovascular: Rate and Rhythm: Normal rate and regular rhythm. Pulses: Normal pulses. Heart sounds: No murmur heard. Pulmonary: Effort: Pulmonary effort is normal. No respiratory distress. Breath sounds: Normal breath sounds. Abdominal: General: There is no distension. Palpations: Abdomen is soft. Tenderness: There is no abdominal tenderness. Comments: Gravid uterus, nontender to palpation. Musculoskeletal: General: No swelling or tenderness. Normal range of motion. Cervical back: Neck supple. Skin: General: Skin is warm and dry. Capillary Refill: Capillary refill takes less than 2 seconds. Neurological: General: No focal deficit present. Mental Status: She is alert and oriented to person, place, and time. Mental status is at baseline. Psychiatric: Mood and Affect: Mood normal. Behavior: Behavior normal. PROCEDURES AND TREATMENTS ED Orders | ED Results MEDICAL DECISION MAKING Nursing notes and vital signs were reviewed. ED Course as of 10/14/23 0507 Sun Oct 14, 2023 0209 Per nursing staff, patient now complaining of restlessness increased anxiety. Could be akathisia secondary to Zofran use, Benadryl given as this is also second-line therapy for nausea and . [CK] 0233 Patient re-evaluated, violently vomiting. Will give additional antiemetics and discussed case with OB. [CK] ED Course User Index [CK] Andreea Yang, Differential Diagnoses Based on my history, physical exam, and evaluation, the differential includes, but is not limited, to the following diagnoses: Volume depletion, dehydration, withdrawal. 28-year-old female, currently 32 weeks , coming into the emergency room for evaluation of 4days of vomiting despite antiemetics at home. Was seen twice previously for same symptoms. In the ED hemodynamically stable and uncomfortable but nontoxic appearing. Moist mucous membranes. Uterus gravid and abdomen nontender to palpation. Patient given IV Zofran and IV fluids in the emergency roomwith some improvement symptoms, therefore was p.o. challenge, however developed severe vomiting afterwards. Was therefore given additional dose of Zofran. Renal ultrasound was obtained to look for evidence of hydronephrosis given urinary symptoms and recent admission for kidney stones, however was p ending at time of admission. UA obtained and no evidence of bacteria. OB was consulted and patient ultimately admitted to their service continued evaluation and management. Amount and/or Complexity of Data Reviewed Labs: ordered. Radiology: ordered. Risk Prescription drug management. Decision regarding hospitalization. Clinical Impressions Nausea and vomiting, unspecified vomiting type Current maternal condition affecting Disposition Admitted. I discussed the management of this patient with the admitting provider and I made a decision to admit the patient. Danyel Kirk was the attending physician who supervised the care of this patient. Andreea Yang DO ATTENDING ATTESTATION I have seen and examined this patient on the 10/13/2023 visit. I have discussed the patient's management with the provider listed above and agree with the note, findings, and plan of care. Danyel Kirk DO * Audra Miguel RN - 10/13/2023 11:02 PM EST Pt was recently discharged from the hospital for pain control of kidney stones. Since discharge pt has been experiencing nausea and vomiting along with a decrease in appetite. Pt alert and oriented x4. documented in this encounter Plan of Treatment Upcoming Encounters Date Type Department Care Team (Late st Contact Info) Description 11/09/2023 8:30 AM EST Office Visit Cardiology, [address] [place] [address] Audra Noriega PA-C [address] [place] [address] [place] [address] Health Maintenance Due Date [...] Procedure Name Priority Date/Time Associated Diagnosis Comments US RENAL STAT 10/14/2023 1:51 AM EST URINALYSIS, REFLEX TO CULTURE STAT 10/14/2023 12:33 AM EST URINALYSIS, REFLEX TO CULTURE (CUP ONLY) STAT 10/14/2023 12:33 AM EST URINALYSIS, REFLEX TO CULTURE (NOT FOR NEUTROPENIC PATIENTS) STAT 10/14/2023 12:33 AM EST DIFFERENTIAL, AUTOMATED STAT 10/14/2023 12:26 AM EST BETA-HCG, QUANTITATIVE STAT 12:26 AM EST COMPREHENSIVE METABOLIC PANEL STAT 10/14/2023 12:26 AM EST CBC STAT 10/14/2023 12:26 AM EST CBC STAT 10/14/2023 12:26 AM EST documented in this encounter Results * US RENAL (10/14/2023 1:51 AM EST) Anatomical Region Laterality Modality Abdomen, Body Ultrasound 10/14/2023 7:08 AM EST Impressions 10/14/2023 9:06 AM EST IMPRESSION Bilateral nephrolithiasis without hydronephrosis. I have personally reviewed this examination and agree with the resident/fellow physician's interpretation. Narrative 10/14/2023 9:06 AM EST EXAM US RENAL-10/14/2023 1:51 am HISTORY recent kidney stone, UTI sx TECHNIQUE Real time sonographic imaging. COMPARISON CT abdomen/pelvis 08/20/2023. Renal ultrasound 07/30/2014. FINDINGS RIGHT KIDNEY: Measures 11.4 cmx4.7 cmx4.6 cm. Normal size and echogenicity. Shadowing nephrolithiasis without hydronephrosis. LEFT KIDNEY: Measures 11.3 cmx5.5 cmx5.9 cm. Normal size and echogenicity. Shadowing nephrolithiasis without hydronephrosis. BLADDER: Collapsed. AORTA: Visualized portions normal in caliber. OTHER: Partially visualized . Procedure Note Dallas Gramajo MD - 10/14/2023 EXAM US RENAL-10/14/2023 1:51 am HISTORY recent kidney stone, UTI sx TECHNIQUE Real time sonographic imaging. COMPARISON CT abdomen/pelvis 08/20/2023. Renal ultrasound 07/30/2014. FINDINGS RIGHT KIDNEY: Measures 11.4 cmx4.7 cmx4.6 cm. Normal size andechogenicity. Shadowing nephrolithiasis without hydronephrosis. LEFT KIDNEY: Measures 11.3 cmx5.5 cmx5.9 cm. Normal size and echogenicity.Shadowing nephrolithiasis without hydronephrosis. BLADDER: Collapsed. AORTA: Visualized portions normal in caliber. OTHER: Partially visualized . IMPRESSION IMPRESSION Bilateral nephrolithiasis without hydronephrosis. I have personally reviewed this examination and agree with the resident/fellow physician's interpretation. Andreea Yang DO RAD ULTRASOUND * (ABNORMAL) URINALYSIS, REFLEX TO CULTURE (10/14/2023 12:33 AM EST) Color, Urine Yellow Colorless, Light Yellow, Yellow, Dark Yellow 10/14/2023 12:56 AM EST [facility] Clarity, Urine Slightly Cloudy(A) Clear 10/14/2023 12:56 AM EST [facility] Glucose, Urine Negative Negative mg/dL 10/14/2023 12:56 AM EST [facility] Bilirubin, Urine Negative Negative 10/14/2023 12:56 AM EST [facility] Ketone, Urine >=160(A) Negative mg/dL 10/14/2023 12:56 AM EST [facility] Specific [place], Urine 1.024 1.003 - 1.030 10/14/2023 12:56 AM EST [facility] Blood, Urine Negative Negative 10/14/2023 12:56 AM EST [facility] pH, Urine 6.5 5.0 - 7.5 Units 10/14/2023 12:56 AM EST [facility] Protein, Urine 30(A) Negative mg/dL 10/14/2023 12:56 AM EST [facility] Urobilinogen, Urine Normal Normal mg/dL 10/14/2023 12:56 AM EST [facility] Nitrite, Urine Negative Negative 10/14/2023 12:56 AM EST [facility] Esterase, Urine Small(A) Negative 10/14/2023 12:56 AM EST [facility] RBC, Urine 3-5(A) 0 - 2 /HPF 10/14/2023 12:56 AM EST [facility] WBC, Urine 0-2 0 - 2 /HPF 10/14/2023 12:56 AM EST [facility] Bacteria, Urine 0-25 0 - 25 /HPF 10/14/2023 12:56 AM EST [facility] Culture, Urine 10/14/2023 12:56 AM EST [facility] Comment:Culture not indicate d by urinalysis results Urine Urine specimen obtained by clean catch procedure / Unknown Non-blood Collection / Unknown 10/14/2023 12:33 AM EST 10/14/2023 12:41 AM EST Andreea Yang CRE Secure LAB URINE ORDER JORGE Performing Organization Address [facility] de Phone Number LABORATORY [facility] [address] [place] [address] * URINALYSIS, REFLEX TO CULTURE (CUP ONLY) (10/14/2023 12:33 AM EST) Urinalysis, Reflex to Culture Specimen Specimen collected and received 10/14/2023 2:01 AM EST LABORATORY [facility] Urine Urine specimen obtained by clean catch procedure / Unknown Non-blood Collection / Unknown 10/14/2023 12:33 AM EST 10/14/2023 12:41 AM EST Andreea Stanleyzabeth Trey CRE Secure LAB URINE ORDER JORGE Performing Organization Address [facility] Phone Number LABORATORY [facility] [address] [place] [address] * (ABNORMAL) BETA-HCG, QUANTITATIVE (10/14/2023 12:26 AM EST) Beta-HCG, Quantitative 3,434.0(H ) <=1.0 mIU/mL 10/14/2023 12:59 AM EST LABORATORY [facility] Blood Venous blood specimen / Unknown Venipuncture / Unknown 10/14/2023 12:26 AM EST 10/14/2023 12:32 AM EST Narrative LABORATORY [facility] - 10/14/2023 12:59 AM EST hCG can serve as a screening assay for . However, early may not give a positive hCG test result. In addition, some non- women may have a hCG result slightly higher than the reference limit. Careful interpretation of the hCG with clinical history is required to determine whether the patient may be . Andreea Virginia Trey CRE Secure LAB BLOOD ORDER JORGE Performing Organization Address [facility] de Phone Number [facility] [address] [place] [address] * (ABNORMAL) DIFFERENTIAL, AUTOMATED (10/14/2023 12:26 AM EST) WBC 9.22 4.00 - 10.80 K/uL 10/14/2023 12:41 AM EST [facility] Neutrophils % 73.9 40.0 - 75.0 % 10/14/2023 12:41 AM EST [facility] Lymphocytes % 16.1(L) 18.0 - 42.0 % 10/14/2023 12:41 AM EST [facility] Monocytes % 9.2 1.0 - 11.0 % 10/14/2023 12:41 AM EST [facility] Eosinophils % 0.1 0.0 - 6.0 % 10/14/2023 12:41 AM EST [facility] Basophils % 0.3 0.0 - 2.0 % 10/14/2023 12:41 AM EST [facility] Immature Granulocytes % 0.4 0.0 - 2.0 % 10/14/2023 12:41 AM EST [facility] Absolute Neutrophils 6.81 1.80 - 7.70 K/uL 10/14/2023 12:41 AM EST [facility] Absolute Lymphocytes 1.48 1.00 - 4.80 K/ul 10/14/2023 12:41 AM EST [facility] Absolute Monocytes 0.85 0.00 - 1.10 K/uL 10/14/2023 12:41 AM EST [facility] Absolute Eosinophils 0.01 0.00 - 0.70 K/uL 10/14/2023 12:41 AM EST [facility] Absolute Basophils 0.03 0.00 - 0.20 K/uL 10/14/2023 12:41 AM EST [facility] Absolute Immature Granulocytes 0.04 0.00 - 0.20 K/uL 10/14/2023 12:41 AM EST [facility] Blood Venous blood specimen / Unknown Venipuncture / Unknown 10/14/2023 12:26 AM EST 10/14/2023 12:32 AM EST Andreea Yang DO LAB BLOOD ORDER JORGE [facility] [address] [place] [address] * (ABNORMAL) CBC (10/14/2023 12:26 AM EST) WBC 9.22 4.00 - 10.80 K/uL 10/14/2023 12:41 AM EST [facility] RBC 3.81 3.85 - 5.15 M/uL 10/14/2023 12:41 AM EST [facility] HGB 11.3(L) 12.0 - 15.3 g/dL 10/14/2023 12:41 AM EST [facility] HCT 34.5(L) 36.0 - 45.2 % 10/14/2023 12:41 AM EST [facility] MCV 90.6 81.5 - 97.5 fL 10/14/2023 12:41 AM EST [facility] MCH 29.7 27.0 - 34.0 pg 10/14/2023 12:41 AM EST [facility] MCHC 32.8 32.0 - 36.0 g/dL 10/14/2023 12:41 AM EST [facility] RDW 14.0 11.5 - 15.5 % 10/14/2023 12:41 AM EST [facility] PLT 230 140 - 400 K/uL 10/14/2023 12:41 AM EST [facility] MPV 10.4 6.6 - 11.1 fL 10/14/2023 12:41 AM EST [facility] nRBCs 0 <=0 /100 WBCs 10/14/2023 12:41 AM EST [facility] Blood Venous blood specimen / Unknown Venipuncture / Unknown 10/14/2023 12:26 AM EST 10/14/2023 12:32 AM EST Andreea Yang DO LAB BLOOD ORDER [facility] [place] [address] [place] [address] * (ABNORMAL) COMPREHENSIVE METABOLIC PANEL (10/14/2023 12:26 AM EST) BUN 6 6 - 20 mg/dL 10/14/2023 1:15 AM EST [facility] Creatinine 0.6 0.5 - 1.0 mg/dL 10/14/2023 1:15 AM EST [facility] Estimated Glomerular Filtration Rate >90 >=60 mL/min 10/14/2023 1:15 AM EST [facility] Comment:eGFR is calculated b ased on the CKD-EPI 2020 equation Sodium 138 135 - 146 mmol/L 10/14/2023 1:15 AM EST [facility] Potassium 3.4(L) 3.5 - 5.1 mmol/L 10/14/2023 1:15 AM EST [facility] Chloride 103 98 - 107 mmol/L 10/14/2023 1:15 AM EST [facility] CO2 20(L) 22 - 32 mmol/L 10/14/2023 1:15 AM EST [facility] Anion Gap 15 7 - 15 mmol/L 10/14/2023 1:15 AM EST [facility] Glucose 86 70 - 120 mg/dL 10/14/2023 1:15 AM EST [facility] Albumin 3.5(L) 3.8 - 5.0 g/dL 10/14/2023 1:15 AM EST [facility] AST 15 10 - 35 U/L 10/14/2023 1:15 AM EST [facility] Alkaline Phosphatase 98 35 - 130 U/L 10/14/2023 1:15 AM EST [facility] Bilirubin, Total 0.5 <=1.2 mg/dL 10/14/2023 1:15 AM EST [facility] Calcium 9.0 8.4 - 10.2 mg/dL 10/14/2023 1:15 AM EST [facility] Protein 6.5 6.0 - 8.3 g/dL 10/14/2023 1:15 AM EST [facility] ALT 15 10 - 35 U/L 10/14/2023 1:15 AM EST [facility] Blood Venous blood specimen / Unknown Venipuncture / Unknown 10/14/2023 12:26 AM EST 10/14/2023 12:32 AM EST Andreea Yang DO LAB BLOOD ORDER [facility] [address] [place] [address] documented in this encounter Visit Diagnoses Diagnosis Nausea and vomiting, unspecified vomiting type- Primary Current maternal condition affecting documented in this encounter Administered Medications Inactive Administered Medications - up to 3 most recent administrations Medication Order MAR Action Action Date Dose Rate Site diphenhydrAMINE (Benadryl) inj 50 mg 50 mg, Intravenous, ONCE, On 10/14/23 at 0245, For 1 dose Given 10/14/2023 2:33 AM EST 50 mg diphenhydrAMINE (Benadryl) inj 50 mg 50 mg, IV Push, ONCE, On 10/14/23 at 0530, For 1 dose Given 10/14/2023 5:08 AM EST 50 mg Famotidine (Pepcid) inj 20 mg 20 mg, IV Push, ONCE, On 10/14/23 at 0600, For 1 dose, Give IV push over 2 minutes. Given 10/14/2023 5:36 AM EST 20 mg isolyte 1,000 mL bolus infusion Intravenous, Administer entire volume within 60 minutes or less. Plasma-LYTE 148, isolyte-S, and isolyte-S pH 7.4 are considered equivalent - including for MAR barcode scanning., ONCE, 1 dose, On 10/14/23 at 0500 New Bag 10/14/2023 5:00 AM EST 1,000 mL 1000 mL/hr metoclopramide (Reglan) inj 10 mg 10 mg, IV Push, ONCE, On 10/14/23 at 0500, For 1 dose Given 10/14/2023 5:08 AM EST 10 mg NSS 0.9% 1,000 mL bolus infusion Intravenous, at 1,000 mL/hr Administer over 60 Minutes, Wide open, This infusion may be completed in less than 1 hour, since it will be a wide open rate, ONCE, 1 dose, On 10/14/23 at 0015 New Bag 10/13/2023 11:59 PM EST 1,000 mL 1000 mL/hr ondansetron (Zofran) inj 4 mg 4 mg, IV Push, ONCE, On 10/14/23 at 0015, For 1 dose Given 10/13/2023 11:58 PM EST 4 mg ondansetron (Zofran) inj 4 mg 4 mg, IV Push, ONCE, On 10/14/23 at 0315, For 1 dose Given 10/14/2023 3:22 AM EST 4 mg documented in this encounter Active and Recently Administered Medications Times are shown in EST. Scheduled Medication Order 10/12/2023 10/13/2023 10/14/2023 diphenhydrAMINE (Benadryl) inj 50 mg (COMPLETED) 50 mg, Intravenous, ONCE, On 10/14/23 at 0245, For 1 dose 0233 (Given - Provid er: Usama Fabian RN) diphenhydrAMINE (Benadryl) inj 50 mg (COMPLETED) 50 mg, IV Push, ONCE, On 10/14/23 at 0530, For 1 dose 0508 (Given - Provid er: Ana Sanchez RN) Famotidine (Pepcid) inj 20 mg (COMPLETED) 20 mg, IV Push, ONCE, On 10/14/23 at 0600, For 1 dose, Give IV push over 2 minutes. 0536 (Given - Provid er: Ana Sanchez RN) isolyte 1,000 mL bolus infusion (COMPLETED) Intravenous, Administer entire volume within 60 minutes or less. Plasma-LYTE 148, isolyte-S, and isolyte-S pH 7.4 are considered equivalent - including for MAR barcode scanning., ONCE, 1 dose, On 10/14/23 at 0500 0500 (New Bag - Provider: Ana Sanchez RN) metoclopramide (Reglan) inj 10 mg (COMPLETED) 10 mg, IV Push, ONCE, On 10/14/23 at 0500, For 1 dose 0508 (Given - Provid er: Ana Sanchez RN) NSS 0.9% 1,000 mL bolus infusion (COMPLETED) Intravenous, at 1,000 mL/hr Administer over 60 Minutes, Wide open, This infusion may be completed in less than 1 hour, since it will be a wide open rate, ONCE, 1 dose, On 10/14/23 at 0015 2359 (New Bag - Provider: Savana Dewey, EVIAT) 0322 (Stopped - Provider: Maylin Escobar RN) ondansetron (Zofran) inj 4 mg (COMPLETED) 4 mg, IV Push, ONCE, On 10/14/23 at 0015, For 1 dose 2358 (Given - Provider: Savana eDwey, RN) ondansetron (Zofran) inj 4 mg (COMPLETED) 4 mg, IV Push, ONCE, On 10/14/23 at 0315, For 1 dose 0322 (Given - Provid er: Maylin Escobar RN) documented in this encounter Advance Directives Latest Code Status on File Code Status Date Activated Date Inactivated Comments Full Code 09/28/2014 10:55 PM 09/30/2014 6:26 PM Th is order reflects the patients wishes and were consensually agreed upon.
--- OUTSIDE RECORDS SUMMARY | 2023-10-15 14:47 | External Medical Summary ---
Author Name Unknown Address Unknown Organization K01:[facility] [place] [address] [facility] [address] Laboratory Report Ordering Provider Test Date Status ELIGIO COATS 10/14/2023 00:26:00 Final Observation Date Value Abnormality Reference (Units ) Status WBC, Total 10/14/2023 00:26:00 9.22 4.00-10.80 (K/uL) Final RBC 10/14/2023 00:26:00 3.81 3.85-5.15 (M/uL) Final Hemoglobin 10/14/2023 00:26:00 11.3 Below low normal 12.0-15.3 (g/dL) Final HCT 10/14/2023 00:26:00 34.5 Below low normal 36.0-45.2 (%) Final MCV 10/14/2023 00:26:00 90.6 81.5-97.5 (fL) Final MCH 10/14/2023 00:26:00 29.7 27.0-34.0 (pg) Final MCHC 10/14/2023 00:26:00 32.8 32.0-36.0 (g/dL) Final RDW 10/14/2023 00:26:00 14.0 11.5-15.5 (%) Final Platelets 10/14/2023 00:26:00 230 140-400 (K/uL) Final MPV 10/14/2023 00:26:00 10.4 6.6-11.1 (fL) Final Nucleated erythrocytes/100 leukocytes [Ratio] in Blood by Automated count 10/14/2023 00:26:00 0 <=0 (/100 WBCs) Final Performing Location [facility] [place] [facility] [place] [address] [facility] [address]
--- OUTSIDE RECORDS SUMMARY | 2023-10-15 14:47 | External Medical Summary ---
Author Name Unknown Address Unknown Organization K01:[facility] [place] [address] [place] [address] Laboratory Report Ordering Provider Test Date Status ELIGIO COATS 10/14/2023 00:26:00 Final Observation Date Value Abnormality Reference (Units ) Status BUN 10/14/2023 00:26:00 6 6-20 (mg/dL) Final Creatinine 10/14/2023 00:26:00 0.6 0.5-1.0 (mg/dL) Final Glomerular filtration rate/1.73 sq M.predicted [Volume Rate/Area] in Serum, Plasma or Blood by Creatinine-based formula (CKD-EPI) 10/14/2023 00:26:00 >90 >=60 (mL/min) Final eGFR is calculated based on the CKD-EPI 2020 equation SODIUM 10/14/2023 00:26:00 138 135-146 (m mol/L) Final Potassium 10/14/2023 00:26:00 3.4 Below low normal 3.5 -5.1 (mmol/L) Final Cl 10/14/2023 00:26:00 103 98-107 (mm ol/L) Final CO2 10/14/2023 00:26:00 20 Below low normal 22- 32 (mmol/L) Final Anion gap 10/14/2023 00:26:00 15 7-15 (mmol /L) Final Glucose 10/14/2023 00:26:00 86 70-120 (mg /dL) Final Albumin 10/14/2023 00:26:00 3.5 Below low normal 3.8 -5.0 (g/dL) Final AST (Aspartate aminotransferase) 10/14/2023 00:26:00 15 10-35 (U/L) Fin al Alk Phos 10/14/2023 00:26:00 98 35-130 (U/ L) Final Bilirubin, Total 10/14/2023 00:26:00 0.5 <=1 .2 (mg/dL) Final Calcium 10/14/2023 00:26:00 9.0 8.4-10.2 ( mg/dL) Final Protein 10/14/2023 00:26:00 6.5 6.0-8.3 (g /dL) Final ALT (Alanine aminotransferase) 10/14/2023 00:26:00 15 10-35 (U/L) Tee burden Performing Location [facility] [place] [facility] [address] [facility] [address]
[2023-10-15] MEDS ORDERED: SODIUM CHLORIDE 0.9% 1,000 ML IV ONE (15:22)
[2023-10-15] MEDS ORDERED: METOCLOPRAMIDE HCL INJ 5 MG/ML 2 ML VIAL IV ONE (15:22)
[2023-10-15] MEDS ORDERED: diphenhydrAMINE 50 MG/ML VIAL IV STA ×2 (15:22→20:31)
--- NOTE | 2023-10-15 15:22 | ED Triage Note ---
Date of Service October 15, 2023 Provider in Triage Author: Gina Sandoval History of Present Illness This patient was briefly evaluated while in triage. An abbreviated physical exam was performed. This patient is a 28-year-old Female who presents to the ED for evaluation of vomiting. Patient is 32 weeks . She has had vomiting for the past 1 week. She has been seen multiple times for this. She reports that she is having contractions and has been for a few days. Denies any vaginal bleeding or discharge. Physical Exam VITALS: Vitals are noted on the nurse's note and reviewed by myself. GENERAL: This is a 28-year-old female, in no acute distress, well-developed well-nourished. SKIN: The skin was without rashes. HEART: Regular rate and rhythm without murmurs gallops or rubs. LUNGS: Clear to auscultation bilaterally without wheezes, rales or rhonchi. NEURO: Patient was alert and oriented to person place and time. Initial orders for labs and / or imaging were placed and patient was placed in the waiting area until a bed is available. Please see further documentation for the full ED course. MDM / Impression Impression Impression: Abdominal pain in , Vomiting Impression: Abdominal pain in Qualifiers: Trimester: unspecified trimester Qualified Code(s): O26.899 - Other specified related conditions, unspecified trimester Vomiting Qualifiers: Vomiting type: unspecified Nausea presence: unspecified Qualified Code(s): R11.10 - Vomiting, unspecified
[2023-10-15 15:58] LABS: Appearance Urine Cloudy (Clear); Bacteria Urine Automated 1+ (Negative); Bilirubin Urine Negative (Negative); Blood Urine 2+ (Negative); Cast Urine Automated 0 /lpf (0-5); Color Urine Yellow; Epithelial Cell Urine Auto >30 /lpf (0-5); Glucose Urine UA Negative (Negative); Ketones Urine 4+ (Negative); Leukocyte Esterase Urine 1+ (Negative); Nitrite Urine Negative (Negative); Protein Urine Negative (Negative); Specific Gravity Urine 1.014 (1.000-1.030); Urobilinogen Urine Negative (Negative); pH Urine 6.5 (4.5-7.5)
[2023-10-15 16:04] LABS: Basophils # (auto) 0.02 K/uL (0.00-0.20); Basophils % (auto) 0.2 %; Eosinophils # (auto) 0.01 K/uL (0.00-0.50); Eosinophils % (auto) 0.1 %; Hematocrit (blood only) 39.3 % (37.0-47.0); Hemoglobin 12.7 g/dl (12.0-16.0); Immature Granulocytes # (auto) 0.04 K/uL (0.01-0.20); Immature Granulocytes % (auto) 0.5 %; Lymphocytes # (auto) 1.38 K/uL (1.20-3.40); Lymphocytes % (auto) 16.4 %; Mean Corpuscular Hemoglobin 28.8 pg (25.0-34.0); Mean Corpuscular Hgb Conc 32.3 g/dL (32.0-36.0); Mean Corpuscular Volume 89.1 fL (80.0-100.0); Mean Platelet Volume 10.1 fL (9.4-12.4); Monocytes # (auto) 0.81 K/uL (0.11-0.59); Monocytes % (auto) 9.6 %; Neutrophils # (auto) 6.14 K/uL (1.40-6.50); Neutrophils % (auto) 73.2 %; Platelet Count 265 K/uL (130-400); RDW Coefficient of Variation 13.7 % (11.5-14.5); RDW Standard Deviation 44.3 fL (36.4-46.3); Red Blood Count 4.41 M/uL (4.20-5.40)
[2023-10-15 16:21] LABS: Alanine Aminotransferase 16 U/L (7-52); Albumin Globulin Ratio 1.1 (0.9-2); Albumin Level 3.9 gm/dl (3.4-5.0); Alkaline Phosphatase 100 U/L (34-104); Anion Gap 12 (3-11); Aspartate Aminotransferase 17 U/L (13-39); BUN Creatinine Ratio 8.2 (10-20); Bilirubin,Total 0.6 mg/dl (0.2-1.0); Blood Urea Nitrogen 5 mg/dl (6-23); Calcium 8.9 mg/dl (8.6-10.3); Carbon Dioxide 23 mmol/L (21-32); Chloride 101 mmol/L (98-107); Est GFR (Non-African American) 122.5 ml/min; Globulin 3.5 gm/dl (2.5-4.0); Glucose 71 mg/dl (70-99(Fasting)); Sodium 136 mmol/L (136-145); Total Protein 7.4 gm/dl (6.0-8.3)
--- NOTE | 2023-10-15 18:07 | Emergency Department Note ---
Impression & Plan Abdominal pain in , Vomiting ED Provider Note NAME: MARCELA MILIAN AGE: 28 SEX: F : 1995 ARRIVES VIA: Walk-In INFORMANT: Patient ED PROVIDER(S): Dung Sky DO CHIEF COMPLAINT: abdominal cramping HPI: Patient is a 28-year-old female G2, P1 at 32 weeks who presents to the ER for nausea and vomiting. She notes has been having this for the past 7 days. She has been seen here as well as at [facility] in the PROTEIN SPECIALIST's office. She has received IV fluids antiemetics. She comes in tonight as her contractions have been increasing. She notes she has been getting these about every 10 and increasing to maybe 5 minutes. She otherwise denies any belly pain. Denies any dysuria, urgency, or frequency. No back pain. No headache or change in vision. No other exacerbating or remitting factors. ADDITIONAL HISTORY OBTAINED: Per HPI Chronic Medical/Social Conditions Affecting Care: Per HPI PAST MEDICAL HISTORY:See Below PAST SURGICAL HISTORY:See Below FAMILY HISTORY:See Below SOCIAL HISTORY:See Below HOME MEDICATIONS:See Below ALLERGIES:See Below VITALS:See Below PHYSICAL EXAMINATION: GENERAL: Sitting up in bed, alert, well appearing, well nourished, no distress, non-toxic EYE EXAM: normal conjunctiva. OROPHARYNX: no exudate, no erythema, lips, buccal mucosa, and tongue normal and mucous membranes are moist NECK: supple, no nuchal rigidity, no adenopathy, non-tender LUNGS: Clear to auscultation. Normal chest wall mechanics HEART: no murmurs, S1 normal and S2 normal ABDOMEN: abdomen soft, non-tender, normo-active bowel sounds, slightly gravid uterus, no rebound or guarding. UPPER EXTREMITIES: upper extremities are grossly normal. LOWER EXTREMITIES: No pitting edema. NEURO EXAM: Normal sensorium, cranial nerves II-XII grossly intact, normal speech, no gross weakness of arms, no gross weakness of legs. MEDICAL DECISION MAKING: Patient is a 19-year-old female who presents the ER for the above-stated complaint. IV was established blood work was obtained. Labs show no significant leukocytosis or anemia. BMP with mild hypokalemia at 3. LFTs bilirubin was unremarkable. UA was contaminated but did have bacteria and as she was she was covered with IV antibiotics. She cannot keep anything down and consequently was given IV Rocephin and IV potassium. She had persistent vomiting here. Was given 2 dose of IV Reglan, Zofran and Phenergan. She still had some intermittent vomiting. She was given 2 L of IV fluids. She had intermittent contractions and did discuss with Dr. Barton who evaluated her at bedside and admitted her to his service. Bedside ultrasound performed by myself shows IUP with a heart rate of 132. Consults/Care Managements Discussions: Per [facility] Triage Nursing notes reviewed. Limited review of prior medical records performed Vital Signs: reviewed and remarkable for no significant abnormalities Differential diagnosis: Differential diagnoses includes but is not limited to gastritis, peptic ulcer disease, GERD, gallbladder disease, pancreatitis, small bowel obstruction, appendicitis, diverticulitis, hernia, urinary tract infection, torsion, perforation, trauma, infectious. ER treatment provided: See below Diagnostics interpreted by me include EKG and cardiac monitoring as listed below: -Cardiac Monitoring: An order was placed for continuous cardiac monitoring. The monitor shows a rate of 72 with sinus rhythm. -ECG: none -Laboratory studies:Interpreted by me as stated above in MDM and shown below. Imaging studies: Xrays: As interpreted by me:none CTs show: none Procedures:none Critical Care: None Past Med/Surg History Medical History Nephrolithiasis and not yet delivered in third trimester History of nephrolithiasis Abdominal pain Right ovarian cyst Developmental dyslexia Depression with anxiety GERD (gastroesophageal reflux disease) Myofascial pain Chronic low back pain Herniated disc LUMBAR AND CERVICAL (FULL ROM) History of kidney stones Sacroiliac joint pain Anxiety Vitamin D deficiency HX, ? CURRENT STATUS Surgical History History of laparoscopy History of breast lump/mass excision (01/17/22) Excision of left breast mass. Dr. Jason 01/17/2022 S/P cystoscopy with ureteral stent placement 12/05/20 Dr. Lamont Ambrose- Cystoscopy, Left ureteroscopy, Laser lithotripsy, Stone basket extraction of stone, Left retrograde pyelogram, Left ureteral stent placement Nasal fracture Repair of nasal fracture Family History Mother No problems noted. Grandmother (Maternal) Lung cancer Oral cancer Other Cancer Hypertension Kidney stones Denies family history of Ovarian cancer Prostate cancer Heart disease Myocardial infarction Breast cancer Colorectal cancer Social History Smoking Status: Never smoker Tobacco Type: E-cigarettes / Vaping Second Hand Exposure: No; Do You Dip or Chew Tobacco: No; Hx Alcohol Use: Yes Alcohol type: beer Hx Substance Use: No Preferred Language: Persian Communication Ability: Effective Visual Impairment: No Limitations Hearing Ability: Normal Security Incident Response Engineer Required: No Beliefs That Will Affect Care: None marital status: Single Current Living Situation: Other Current Living Situation Comment: boyfriend current occupational status: employed 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 @ [employer] How many Children do You have: 1 Feels Safe at Home: Yes Childhood Exposure to Second-Hand Smoke: No Diet: regular during the past year weight has: increased > 10 lbs Physical Activity Frequency: Daily Seatbelt Use: always Sunscreen Use: Yes Assistive Devices: None Allergies Allergies Allergy/AdvReac Type Severity Reaction Status Date / Time aluminum [From Drysol] Allergy Intermediate Hives Verified 10/15/23 18:01 Home Meds Home Medications Medication Instructions Recorded Confirmed PNV 153-FA 400 mcg-om3 35 mg-dha 1 tab PO DAILY 08/17/23 10/15/23 25 mg-epa 5 mg-fish oil chew tablet ( Gummies) bupropion HCl 300 mg 24 hr tablet, 300 mg PO QAM 08/17/23 10/15/23 extended release iron 18 mg tablet 18 mg PO BID 08/17/23 10/15/23 metoprolol succinate 25 mg 12.5 mg PO QAM 08/17/23 10/15/23 tablet,extended release 24 hr ondansetron HCl 8 mg tablet 8 mg PO Q8H PRN NAUSEA/VOMITING 08/17/23 10/15/23 pyridoxine (vitamin B6) 100 mg 100 mg PO DAILY 08/17/23 10/15/23 tablet (Vitamin B-6) trazodone 50 mg tablet 50 mg PO HS 08/17/23 10/15/23 docusate sodium 100 mg capsule 100 mg PO BID PRN Constipation 09/25/23 10/15/23 famotidine 20 mg tablet 20 mg PO QAM PRN acid reflux 09/25/23 10/15/23 polyethylene glycol 3350 17 gram 17 g PO BID PRN Constipation 09/25/23 10/15/23 oral powder packet (Miralax) oxycodone 5 mg tablet 5 - 10 mg PO Q4H PRN Pain 10/11/23 10/15/23 Previous Rx's Medication Instructions Recorded magnesium oxide 400 mg (241.3 mg 400 mg PO BID #60 tabs 10/09/23 magnesium) tablet tamsulosin 0.4 mg capsule 0.4 mg PO BID #20 caps 10/09/23 cephalexin 500 mg capsule 500 mg PO BID 3 days #6 caps 10/15/23 Results & Data (ED) Vital Signs Vital Signs - 24 hr 10/15/23 15:20 10/15/23 19:09 10/15/23 20:00 Temperature 36.8 C Temperature Source Temporal Artery Scan Pulse Rate 104 H 80 Pulse Rate [Apical] 67 Respiratory Rate 18 15 16 Respiratory Effort / Characteristics Non-Labored Respiratory Depth Normal Blood Pressure 111/70 142/79 H Blood Pressure [Left Arm] 140/74 Blood Pressure Mean 83 100 Blood Pressure Mean [Left Arm] 96 Pulse Oximetry 99 100 99 Oxygen Delivery Method Room Air Room Air Sepsis Recent Fever Within 48 Hours No Sepsis New/Unexplained Change in Mental Status No Sepsis Action Taken by Nursing No Action Required Laboratory Data 10/15/23 15:40 10/15/23 15:40 Lab Results 10/15/23 Range/Units 15:40 WBC 8.40 (4.8-10.8) K/ul RBC 4.41 (4.20-5.40) M/uL Hgb 12.7 (12.0-16.0) g/dl Hct 39.3 (37.0-47.0) % MCV 89.1 (80.0-100.0) fL MCH 28.8 (25.0-34.0) pg MCHC 32.3 (32.0-36.0) g/dL RDW Std Deviation 44.3 (36.4-46.3) fL RDW Coeff of Baldo 13.7 (11.5-14.5) % Plt Count 265 (130-400) K/uL MPV 10.1 (9.4-12.4) fL Immature Gran % (Auto) 0.5 % Neut % (Auto) 73.2 % Lymph % (Auto) 16.4 % [place] % (Auto) 9.6 % Eos % (Auto) 0.1 % Baso % (Auto) 0.2 % Neut # (Auto) 6.14 (1.40-6.50) K/uL Lymph # (Auto) 1.38 (1.20-3.40) K/uL [place] # (Auto) 0.81 H (0.11-0.59) K/uL Eos # (Auto) 0.01 (0.00-0.50) K/uL Baso # (Auto) 0.02 (0.00-0.20) K/uL Immature Gran # (Auto) 0.04 (0.01-0.20) K/uL Sodium 136 (136-145) mmol/L Potassium 3.0 L (3.5-5.1) mmol/L Chloride 101 (98-107) mmol/L Carbon Dioxide 23 (21-32) mmol/L Anion Gap 12 H (3-11) BUN 5 L (6-23) mg/dl Creatinine 0.61 (0.6-1.2) mg/dl Est Cr Clr Drug Dosing Not Reportable Est GFR ( Amer) 142.0 ml/min Est GFR (Non-Af Amer) 122.5 ml/min BUN/Creatinine Ratio 8.2 L (10-20) Glucose 71 (70-99(Fasting)) mg/dl Calcium 8.9 (8.6-10.3) mg/dl Total Bilirubin 0.6 (0.2-1.0) mg/dl AST 17 (13-39) U/L ALT 16 (7-52) U/L Alkaline Phosphatase 100 (34-104) U/L Total Protein 7.4 (6.0-8.3) gm/dl Albumin 3.9 (3.4-5.0) gm/dl Globulin 3.5 (2.5-4.0) gm/dl Albumin/Globulin Ratio 1.1 (0.9-2) Urine Color Yellow Urine Appearance Cloudy A (Clear) Urine pH 6.5 (4.5-7.5) Ur Specific [place] 1.014 (1.000-1.030) Urine Protein Negative (Negative) Urine Glucose (UA) Negative (Negative) Urine Ketones 4+ H (Negative) Urine Blood 2+ H (Negative) Urine Nitrite Negative (Negative) Urine Bilirubin Negative (Negative) Urine Urobilinogen Negative (Negative) Ur Leukocyte Esterase 1+ H (Negative) Urine WBC (Auto) 10-30 H (0-5) /hpf Urine RBC (Auto) 10-30 H (0-4) /hpf U Hyaline Cast (Auto) 0 (0-5) /lpf U Epithel Cells (Auto) >30 H (0-5) /lpf Urine Bacteria (Auto) 1+ H (Negative) Administered Medications Discontinued Medications Cephalexin HCl (Cephalexin 500 Mg Cap) 500 mg PO NOW STA; Protocol Stop: 10/15/23 18:43 Last Admin: 10/15/23 20:41 Dose: Not Given Documented By: SOTERO Diphenhydramine HCl (Diphenhydramine 50 Mg/Ml Vial) 25 mg IV NOW STA Stop: 10/15/23 15:23 Last Admin: 10/15/23 15:48 Dose: 25 mg Documented By: KELLIE Diphenhydramine HCl (Diphenhydramine 50 Mg/Ml Vial) 25 mg IV NOW STA Stop: 10/15/23 20:32 Last Admin: 10/15/23 20:36 Dose: 25 mg Documented By: SOTERO Sodium Chloride (Nss) 1,000 mls @ 999 mls/hr IV .Q1H1M ONE Stop: 10/15/23 16:22 Last Infusion: 10/15/23 16:48 Dose: Infused Documented By: Admin: 10/15/23 15:47 Dose: 999 mls/hr Documented By: KELLIE Sodium Chloride (Nss) 1,000 mls @ 999 mls/hr IV .Q1H1M HAM Stop: 10/15/23 20:15 Last Infusion: 10/15/23 21:20 Dose: Infused Documented By: Admin: 10/15/23 20:19 Dose: 999 mls/hr Documented By: Infusion: 10/15/23 19:43 Dose: Infused Documented By: Admin: 10/15/23 18:41 Dose: 999 mls/hr Documented By: DEEJAY Ceftriaxone Sodium (Rocephin) 2,000 mg in 50 mls @ 100 mls/hr IV NOW STA Stop: 10/15/23 19:17 Last Infusion: 10/15/23 21:06 Dose: Infused Documented By: Admin: 10/15/23 20:36 Dose: 100 mls/hr Documented By: SOTERO Promethazine HCl (Phenergan) 12.5 mg in 50.5 mls @ 202 mls/hr IV NOW STA Stop: 10/15/23 19:03 Last Infusion: 10/15/23 19:20 Dose: Infused Documented By: Admin: 10/15/23 19:05 Dose: 202 mls/hr Documented By: REGI Potassium Chloride (K Beau / Wtr) 10 meq in 100 mls @ 100 mls/hr IV ONE ONE Stop: 10/15/23 20:31 Last Infusion: 10/15/23 21:24 Dose: Infused Documented By: Admin: 10/15/23 20:24 Dose: 100 mls/hr Documented By: SOTERO Metoclopramide HCl (Metoclopramide Hcl Inj 5 Mg/Ml 2 Ml Vial) 5 mg IV ONE ONE Stop: 10/15/23 15:23 Last Admin: 10/15/23 15:47 Dose: 5 mg Documented By: KELLIE Metoclopramide HCl (Metoclopramide Hcl Inj 5 Mg/Ml 2 Ml Vial) 5 mg IV NOW STA Stop: 10/15/23 18:49 Last Admin: 10/15/23 19:28 Dose: 5 mg Documented By: REGI Potassium Chloride (Potassium Chloride 20 Meq/15 Ml Udc) 40 meq PO NOW STA Stop: 10/15/23 18:42 Last Admin: 10/15/23 19:24 Dose: 40 meq Documented By: REGI Discharge Plan Visit Data Chief Complaint: Vomiting Stated Complaint: VOMITING, 23 WEEKS PREG, L&D SAID SEE IN ER ED Provider: Dung Sky Discharge Problem: Abdominal pain in , Vomiting Patient Disposition: Admitted As Inpatient Discharge Problem: Abdominal pain in Qualifiers: Trimester: unspecified trimester Qualified Code(s): O26.899 - Other specified related conditions, unspecified trimester Vomiting Qualifiers: Vomiting type: unspecified Nausea presence: unspecified Qualified Code(s): R 11.10 - Vomiting, unspecified
[2023-10-15] MEDS ORDERED: POTASSIUM CHLORIDE 20 MEQ/15 ML UDC PO STA (18:41)
[2023-10-15] MEDS: SODIUM CHLORIDE 0.9% 1,000 ML IV SCH ×2 (18:41→20:19)
[2023-10-15] MEDS ORDERED: cephALEXin 500 MG CAP PO STA (18:42)
[2023-10-15] MEDS ORDERED: cefTRIAXone SODIUM 2,000 MG/50 ML BAG IV STA (18:48)
[2023-10-15] MEDS ORDERED: METOCLOPRAMIDE HCL INJ 5 MG/ML 2 ML VIAL IV STA (18:48)
[2023-10-15] MEDS ORDERED: PROMETHAZINE 12.5 MG/50.5 ML BAG IV STA (18:49)
[2023-10-15] MEDS ORDERED: POTASSIUM CHLORIDE / WTR 10 MEQ/100 ML PLCT IV ONE (19:32)
[2023-10-15] MEDS ORDERED: ONDANSETRON INJ 2 MG/ML 2 ML VIAL IV STA (19:40)
--- NOTE | 2023-10-15 20:25 | History & Physical Report ---
Date of Service October 15, 2023 History of Present Illness Chief Complaint: vomitting for one week Primary Care Provider: Luisa Roldan MD 28 F P1001 at 32 weeks with persistent vomiting for one week. Unable to keeep anything down despite oral anti-emetics. Allergies Allergy/AdvReac Type Severity Reaction Status Date / Time aluminum [From Drysol] Allergy Intermediate Hives Verified 10/15/23 18:01 Home Medications Medication Instructions Recorded Confirmed Type PNV 153-FA 400 mcg-om3 35 mg-dha 1 tab PO DAILY 08/17/23 10/15/23 History 25 mg-epa 5 mg-fish oil chew tablet ( Gummies) bupropion HCl 300 mg 24 hr tablet, 300 mg PO QAM 08/17/23 10/15/23 History extended release iron 18 mg tablet 18 mg PO BID 08/17/23 10/15/23 History metoprolol succinate 25 mg 12.5 mg PO QAM 08/17/23 10/15/23 History tablet,extended release 24 hr ondansetron HCl 8 mg tablet 8 mg PO Q8H PRN NAUSEA/VOMITING 08/17/23 10/15/23 History pyridoxine (vitamin B6) 100 mg 100 mg PO DAILY 08/17/23 10/15/23 History tablet (Vitamin B-6) trazodone 50 mg tablet 50 mg PO HS 08/17/23 10/15/23 History docusate sodium 100 mg capsule 100 mg PO BID PRN Constipation 09/25/23 10/15/23 History famotidine 20 mg tablet 20 mg PO QAM PRN acid reflux 09/25/23 10/15/23 History polyethylene glycol 3350 17 gram 17 g PO BID PRN Constipation 09/25/23 10/15/23 History oral powder packet (Miralax) magnesium oxide 400 mg (241.3 mg 400 mg PO BID #60 tabs 10/09/23 10/15/23 Rx magnesium) tablet tamsulosin 0.4 mg capsule 0.4 mg PO BID #20 caps 10/09/23 10/15/23 Rx oxycodone 5 mg tablet 5 - 10 mg PO Q4H PRN Pain 10/11/23 10/15/23 History cephalexin 500 mg capsule 500 mg PO BID 3 days #6 caps 10/15/23 Rx Patient History Medical History Nephrolithiasis and not yet delivered in third trimester History of nephrolithiasis Abdominal pain Right ovarian cyst Developmental dyslexia Depression with anxiety GERD (gastroesophageal reflux disease) Myofascial pain Chronic low back pain Herniated disc LUMBAR AND CERVICAL (FULL ROM) History of kidney stones Sacroiliac joint pain Anxiety Vitamin D deficiency HX, ? CURRENT STATUS Surgical History History of laparoscopy History of breast lump/mass excision (01/17/22) Excision of left breast mass. Dr. Jason 01/17/2022 S/P cystoscopy with ureteral stent placement 12/05/20 Dr. Lamont Ambrose- Cystoscopy, Left ureteroscopy, Laser lithotripsy, Stone basket extraction of stone, Left retrograde pyelogram, Left ureteral stent placement Nasal fracture Repair of nasal fracture Family History Mother No problems noted. Grandmother (Maternal) Lung cancer Oral cancer Other Cancer Hypertension Kidney stones Denies family history of Ovarian cancer Prostate cancer Heart disease Myocardial infarction Breast cancer Colorectal cancer Social History Smoking Status: Never smoker Tobacco Type: E-cigarettes / Vaping Second Hand Exposure: No; Do You Dip or Chew Tobacco: No; Hx Alcohol Use: Yes Alcohol type: beer Hx Substance Use: No Preferred Language: Hungarian Communication Ability: Effective Visual Impairment: No Limitations Hearing Ability: Normal Composition Molder Required: No Beliefs That Will Affect Care: None marital status: Single Current Living Situation: Other Current Living Situation Comment: boyfriend current occupational status: employed 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 @ [employer] How many Children do You have: 1 Feels Safe at Home: Yes Childhood Exposure to Second-Hand Smoke: No Diet: regular during the past year weight has: increased > 10 lbs Physical Activity Frequency: Daily Seatbelt Use: always Sunscreen Use: Yes Assistive Devices: None OB History x1 ADHESIVE PRIMER History neg Review of Systems All systems reviewed & are unremarkable except as noted in HPI & below Physical Exam Constitutional: WD/WN, vitals as above Eyes: PERRL, conjunctivae normal, anicteric sclerae Respiratory: normal respiratory effort, lungs clear to auscultation Cardiovascular: Rate/Rhythm: regular rate and regular rhythm Gastrointestinal (Abdomen): Inspection/Auscultation: abdomen normal to inspection soft and non-tender Musculoskeletal: Extremities: extremities normal to inspection Skin: no rashes, warm and dry Neurologic: patellar DTR's 2+ bilat, sensation intact Psychiatric: A+Ox3, euthymic affect Genitourinary: OB Exam Monitor Tracing: + external FHT monitor used, + external uterine monitor used and + category I NST Cat 1 no contractions no vaginal bleeding Results & Data Vital Signs (Past 12 Hours) Vital Signs Temp Pulse Pulse Resp BP BP Pulse Ox 10/15/23 19:09 67 15 140/74 100 10/15/23 15:20 36.8 C 104 H 18 111/70 99 O2 Del Method 10/15/23 19:09 10/15/23 15:20 Room Air Laboratory Results 10/15/23 15:40 WBC 8.40 RBC 4.41 Hgb 12.7 Hct 39.3 MCV 89.1 MCH 28.8 MCHC 32.3 RDW Std Deviation 44.3 RDW Coeff of Baldo 13.7 Plt Count 265 MPV 10.1 Immature Gran % (Auto) 0.5 Neut % (Auto) 73.2 Lymph % (Auto) 16.4 [place] % (Auto) 9.6 Eos % (Auto) 0.1 Baso % (Auto) 0.2 Neut # (Auto) 6.14 Lymph # (Auto) 1.38 [place] # (Auto) 0.81 H Eos # (Auto) 0.01 Baso # (Auto) 0.02 Immature Gran # (Auto) 0.04 Sodium 136 Potassium 3.0 L Chloride 101 Carbon Dioxide 23 Anion Gap 12 H BUN 5 L Creatinine 0.61 Est Cr Clr Drug Dosing Not Reportable Est GFR ( Amer) 142.0 Est GFR (Non-Af Amer) 122.5 BUN/Creatinine Ratio 8.2 L Glucose 71 Calcium 8.9 Total Bilirubin 0.6 AST 17 ALT 16 Alkaline Phosphatase 100 Total Protein 7.4 Albumin 3.9 Globulin 3.5 Albumin/Globulin Ratio 1.1 Urine Color Yellow Urine Appearance Cloudy A Urine pH 6.5 Ur Specific [place] 1.014 Urine Protein Negative Urine Glucose (UA) Negative Urine Ketones 4+ H Urine Blood 2+ H Urine Nitrite Negative Urine Bilirubin Negative Urine Urobilinogen Negative Ur Leukocyte Esterase 1+ H Urine WBC (Auto) 10-30 H Urine RBC (Auto) 10-30 H U Hyaline Cast (Auto) 0 U Epithel Cells (Auto) >30 H Urine Bacteria (Auto) 1+ H Code Status & VTE Plan VTE Prophylaxis Plan VTE Prophylaxis will be ordered: No Monitoring External Monitor Cat 1
[2023-10-15] MEDS ORDERED: POLYETHYLENE (MIRALAX) 17 GM PACK PO PRN (23:00)
[2023-10-15] MEDS ORDERED: oxyCODONE HCL IR 5 MG TAB (IMMEDIATE RELEASE) PO PRN (23:00)
[2023-10-15] MEDS ORDERED: DOCUSATE SODIUM 100 MG CAP PO PRN (23:00)
[2023-10-15] MEDS: LACTATED RINGER'S 1,000 ML IV PRN (23:44)
[2023-10-15] MEDS: ONDANSETRON 8MG OD TAB PO PRN (23:44)
[2023-10-15] MEDS: traZODone HCL 50 MG TAB PO SCH (23:45)
[2023-10-15] MEDS: TAMSULOSIN HCL 0.4 MG CAP PO SCH (23:45)
[2023-10-15] MEDS: FERROUS SULFATE 325 MG TAB PO SCH (23:45)
[2023-10-15] MEDS: MAGNESIUM OXIDE 400 MG TAB PO SCH (23:45)
[2023-10-15 23:46] LABS: Hematocrit (blood only) 32.1 % (37.0-47.0); Hemoglobin 10.5 g/dl (12.0-16.0); Mean Corpuscular Hemoglobin 29.5 pg (25.0-34.0); Mean Corpuscular Hgb Conc 32.7 g/dL (32.0-36.0); Mean Corpuscular Volume 90.2 fL (80.0-100.0); Mean Platelet Volume 10.1 fL (9.4-12.4); Platelet Count 203 K/uL (130-400); RDW Coefficient of Variation 13.8 % (11.5-14.5); RDW Standard Deviation 45.3 fL (36.4-46.3); Red Blood Count 3.56 M/uL (4.20-5.40); White Blood Count 8.24 K/ul (4.8-10.8)
[2023-10-16] MEDS: METOCLOPRAMIDE HCL INJ 5 MG/ML 2 ML VIAL IV PRN ×3 (03:47→20:16)
[2023-10-16 07:07] LABS: Alanine Aminotransferase 13 U/L (7-52); Albumin Globulin Ratio 1.2 (0.9-2); Alkaline Phosphatase 84 U/L (34-104); Anion Gap 10 (3-11); Aspartate Aminotransferase 14 U/L (13-39); BUN Creatinine Ratio 9.5 (10-20); Bilirubin,Total 0.5 mg/dl (0.2-1.0); Blood Urea Nitrogen 4 mg/dl (6-23); Calcium 7.7 mg/dl (8.6-10.3); Carbon Dioxide 20 mmol/L (21-32); Chloride 107 mmol/L (98-107); Est GFR (African American) > 150.0 ml/min; Est GFR (Non-African American) 138.5 ml/min; Globulin 2.6 gm/dl (2.5-4.0); Glucose 74 mg/dl (70-99(Fasting)); Potassium 3.2 mmol/L (3.5-5.1); Sodium 137 mmol/L (136-145); Total Protein 5.6 gm/dl (6.0-8.3)
[2023-10-16] MEDS: LACTATED RINGER'S 1,000 ML IV PRN ×2 (07:33→14:56)
[2023-10-16] MEDS: buPROPion XL 300 MG TABCR PO SCH (07:37)
[2023-10-16] MEDS: METOPROLOL SUCC 25MG EXT REL TAB PO SCH (07:38)
[2023-10-16] MEDS: MAGNESIUM OXIDE 400 MG TAB PO SCH ×2 (07:38→21:19)
[2023-10-16] MEDS: PRENATAL VITAMIN 1 TAB PO SCH (07:38)
[2023-10-16] MEDS: FERROUS SULFATE 325 MG TAB PO SCH ×2 (07:38→21:19)
[2023-10-16] MEDS: PYRIDOXINE HCL 50 MG TAB PO SCH (07:39)
[2023-10-16] MEDS: TAMSULOSIN HCL 0.4 MG CAP PO SCH ×2 (07:39→21:19)
[2023-10-16] MEDS: ONDANSETRON 8MG OD TAB PO PRN (09:03)
--- NOTE | 2023-10-16 12:17 | Progress Note ---
Date of Service October 16, 2023 Assessment & Plan (1) Nausea & vomiting: Plan: Pt doing well Vomited only once since this AM pt on Zofran Reglan start PO reg diet this AM Vomiting type: unspecified Qualified Code(s): R11.2 - Nausea with vomiting, unspecified Admission and Anticipated Discharge Date Admission Date: October 15, 2023 Results & Data Vital Signs (Past 12 Hours) Vital Signs Temp Pulse Resp BP Pulse Ox O2 Del Method 10/16/23 07:30 36.7 C 77 18 107/70 97 Room Air 10/16/23 03:45 36.8 C 74 16 103/68 97 Room Air
[2023-10-16] MEDS ORDERED: PROMETHAZINE HCL 25 MG SUPP PR PRN (14:10)
[2023-10-16] MEDS ORDERED: POTASSIUM PHOS 3 MMOL/1 ML INFUSION IV STA (15:57)
[2023-10-16] MEDS ORDERED: POTASSIUM CHLORIDE / WTR 20 MEQ/100 ML PLCT IV ONE (16:02)
[2023-10-16] MEDS: POTASSIUM CHLORIDE / WTR 10 MEQ/100 ML PLCT IV SCH ×4 (16:47→20:08)
[2023-10-16] MEDS: FAMOTIDINE 20 MG TAB PO PRN (20:11)
[2023-10-16] MEDS: traZODone HCL 50 MG TAB PO SCH (21:20)
[2023-10-17] MEDS: LACTATED RINGER'S 1,000 ML IV PRN ×3 (01:12→22:30)
[2023-10-17] MEDS: METOCLOPRAMIDE HCL INJ 5 MG/ML 2 ML VIAL IV PRN ×3 (04:24→19:37)
[2023-10-17] MEDS: ONDANSETRON 8MG OD TAB PO PRN ×2 (04:42→13:11)
[2023-10-17 06:26] LABS: Basophils # (auto) 0.02 K/uL (0.00-0.20); Basophils % (auto) 0.3 %; Eosinophils # (auto) 0.14 K/uL (0.00-0.50); Eosinophils % (auto) 2.2 %; Hematocrit (blood only) 31.8 % (37.0-47.0); Hemoglobin 10.6 g/dl (12.0-16.0); Immature Granulocytes # (auto) 0.03 K/uL (0.01-0.20); Immature Granulocytes % (auto) 0.5 %; Lymphocytes # (auto) 1.38 K/uL (1.20-3.40); Lymphocytes % (auto) 21.5 %; Mean Corpuscular Hemoglobin 29.2 pg (25.0-34.0); Mean Corpuscular Hgb Conc 33.3 g/dL (32.0-36.0); Mean Corpuscular Volume 87.6 fL (80.0-100.0); Mean Platelet Volume 10.4 fL (9.4-12.4); Monocytes # (auto) 0.93 K/uL (0.11-0.59); Monocytes % (auto) 14.5 %; Neutrophils # (auto) 3.93 K/uL (1.40-6.50); Platelet Count 223 K/uL (130-400); RDW Coefficient of Variation 13.5 % (11.5-14.5); RDW Standard Deviation 43.8 fL (36.4-46.3); Red Blood Count 3.63 M/uL (4.20-5.40); White Blood Count 6.43 K/ul (4.8-10.8)
[2023-10-17 06:40] LABS: Alanine Aminotransferase 13 U/L (7-52); Albumin Globulin Ratio 1.1 (0.9-2); Alkaline Phosphatase 86 U/L (34-104); Anion Gap 9 (3-11); Aspartate Aminotransferase 13 U/L (13-39); BUN Creatinine Ratio 4.4 (10-20); Bilirubin,Total 0.4 mg/dl (0.2-1.0); Blood Urea Nitrogen 2 mg/dl (6-23); Calcium 7.9 mg/dl (8.6-10.3); Carbon Dioxide 23 mmol/L (21-32); Chloride 105 mmol/L (98-107); Creatinine Clr Calc Pharmacy 189.5 ml/min; Est GFR (African American) > 150.0 ml/min; Est GFR (Non-African American) 135.4 ml/min; Globulin 2.7 gm/dl (2.5-4.0); Glucose 84 mg/dl (70-99(Fasting)); Potassium 3.1 mmol/L (3.5-5.1); Sodium 137 mmol/L (136-145); Total Protein 5.7 gm/dl (6.0-8.3)
[2023-10-17] MEDS: FERROUS SULFATE 325 MG TAB PO SCH ×2 (09:07→19:41)
[2023-10-17] MEDS: PRENATAL VITAMIN 1 TAB PO SCH (09:08)
[2023-10-17] MEDS: MAGNESIUM OXIDE 400 MG TAB PO SCH ×2 (09:08→19:40)
[2023-10-17] MEDS: PYRIDOXINE HCL 50 MG TAB PO SCH (09:08)
[2023-10-17] MEDS: buPROPion XL 300 MG TABCR PO SCH (09:08)
[2023-10-17] MEDS: TAMSULOSIN HCL 0.4 MG CAP PO SCH ×2 (09:10→19:40)
[2023-10-17] MEDS: METOPROLOL SUCC 25MG EXT REL TAB PO SCH ×3 (09:10→19:57)
--- NOTE | 2023-10-17 11:36 | Gynecologic Progress Note ---
Date of Service October 17, 2023 Assessment & Plan (1) Vomiting: Plan will get hospitalist involved to see if they have any other suggestions Admission and Anticipated Discharge Date Admission Date: October 15, 2023 Subjective patient had some vomiting this Am not able to keep much down K still low despite replacement Physical Exam Constitutional: WD/WN, vitals as above Results & Data Vital Signs (Past 12 Hours) Vital Signs Temp Pulse Pulse Resp BP Pulse Ox O2 Del Method 10/17/23 07:15 36.8 C 86 16 122/73 97 Room Air 10/17/23 04:00 36.4 C L 79 20 115/64 97 Room Air Laboratory Results Laboratory Results - last 48 hr 10/15/23 10/15/23 10/16/23 15:40 23:25 06:23 WBC 8.40 8.24 RBC 4.41 3.56 L Hgb 12.7 10.5 L Hct 39.3 32.1 L MCV 89.1 90.2 MCH 28.8 29.5 MCHC 32.3 32.7 RDW Std Deviation 44.3 45.3 RDW Coeff of Baldo 13.7 13.8 Plt Count 265 203 MPV 10.1 10.1 Immature Gran % (Auto) 0.5 Neut % (Auto) 73.2 Lymph % (Auto) 16.4 [place] % (Auto) 9.6 Eos % (Auto) 0.1 Baso % (Auto) 0.2 Neut # (Auto) 6.14 Lymph # (Auto) 1.38 [place] # (Auto) 0.81 H Eos # (Auto) 0.01 Baso # (Auto) 0.02 Immature Gran # (Auto) 0.04 Sodium 136 137 Potassium 3.0 L 3.2 L Chloride 101 107 Carbon Dioxide 23 20 L Anion Gap 12 H 10 BUN 5 L 4 L Creatinine 0.61 0.42 L Est Cr Clr Drug Dosing Not Reportable 203.0 Est GFR ( Amer) 142.0 > 150.0 Est GFR (Non-Af Amer) 122.5 138.5 BUN/Creatinine Ratio 8.2 L 9.5 L Glucose 71 74 Calcium 8.9 7.7 L Total Bilirubin 0.6 0.5 AST 17 14 ALT 16 13 Alkaline Phosphatase 100 84 Total Protein 7.4 5.6 L D Albumin 3.9 3.0 L Globulin 3.5 2.6 Albumin/Globulin Ratio 1.1 1.2 Urine Color Yellow Urine Appearance Cloudy A Urine pH 6.5 Ur Specific [place] 1.014 Urine Protein Negative Urine Glucose (UA) Negative Urine Ketones 4+ H Urine Blood 2+ H Urine Nitrite Negative Urine Bilirubin Negative Urine Urobilinogen Negative Ur Leukocyte Esterase 1+ H Urine WBC (Auto) 10-30 H Urine RBC (Auto) 10-30 H U Hyaline Cast (Auto) 0 U Epithel Cells (Auto) >30 H Urine Bacteria (Auto) 1+ H 10/17/23 05:43 WBC 6.43 RBC 3.63 L Hgb 10.6 L Hct 31.8 L MCV 87.6 MCH 29.2 MCHC 33.3 RDW Std Deviation 43.8 RDW Coeff of Baldo 13.5 Plt Count 223 MPV 10.4 Immature Gran % (Auto) 0.5 Neut % (Auto) 61.0 Lymph % (Auto) 21.5 [place] % (Auto) 14.5 Eos % (Auto) 2.2 Baso % (Auto) 0.3 Neut # (Auto) 3.93 Lymph # (Auto) 1.38 [place] # (Auto) 0.93 H Eos # (Auto) 0.14 Baso # (Auto) 0.02 Immature Gran # (Auto) 0.03 Sodium 137 Potassium 3.1 L Chloride 105 Carbon Dioxide 23 Anion Gap 9 BUN 2 L Creatinine 0.45 L Est Cr Clr Drug Dosing 189.5 Est GFR ( Amer) > 150.0 Est GFR (Non-Af Amer) 135.4 BUN/Creatinine Ratio 4.4 L Glucose 84 Calcium 7.9 L Total Bilirubin 0.4 AST 13 ALT 13 Alkaline Phosphatase 86 Total Protein 5.7 L Albumin 3.0 L Globulin 2.7 Albumin/Globulin Ratio 1.1 Urine Color Urine Appearance Urine pH Ur Specific [place] Urine Protein Urine Glucose (UA) Urine Ketones Urine Blood Urine Nitrite Urine Bilirubin Urine Urobilinogen Ur Leukocyte Esterase Urine WBC (Auto) Urine RBC (Auto) U Hyaline Cast (Auto) U Epithel Cells (Auto) Urine Bacteria (Auto) (1) Vomiting Nausea presence: unspecified Vomiting type: unspecified Qualified Code(s): R11.10 - Vomiting, unspecified
--- NOTE | 2023-10-17 12:06 | Hospitalist Consultation ---
Date of Consultation October 17, 2023 Assessment & Plan (1) Nausea & vomiting: (2) : (3) Hypokalemia: (4) Hypomagnesemia: (5) Electrolyte abnormality: Nausea and Vomiting Hypokalemia Hypomagnesemia - Admitted on topper press operator automatic service - Pt has been persistently hypokalemic and hypomagnesemia during previous admissions - Checking BMP, mag, phos now - will replaced as needed and recheck BMP this evening - Ordered KCl- powder in liquid for increased tolerability - pt has failed liquid potassium previously, has had IV KCl 40 meq today - Check stool biofire with persistent diarrhea, abd cramping/pain relieved with bowel movements, concern for viral infection? - Continue to encourage po hydration - Antiemetics currently ordered include zofran and reglan IV by primary team, if not improving can consider phenergan PO Hx Nephrolithiasis - Resolved - Pt is no longer taking oxycodone - See HPI for complicated course and multiple hospitalizations recently - Noted multiple stones seen on imaging from last week, negative Renal US from 10/07, no hydronephrosis not yet delivered in the second trimester - 31 weeks gestation - monitoring per primary team - Continue daily MVI and iron supplementation Symptomatic PVCs - Continue metoprolol 25 mg daily - BP and HR are stable DVT ppx: ambulatory Lines: 1 PIV, obtain new site due to blown IV GI/FEN: Regular diet as tolerated CODE: Full Thank you for involving us in the care of Ms. Leyva. Please do not hesitate to call with questions or concerns. Pt is noted to be a patient of the [facility], this was determined after already seeing the patient. As a courtesy during this admission, our team will follow along. Supervising Physician Co-Signing Physician Notes I have seen and examined the patient and have discussed the case with the provider above. I agree with the assessment and plan as stated. The differential for her GI symptoms includes but is not limited to viral etiology (norovirus is circulating in the community currently), , recent opiate use, food borne illness (less likely from history). Cont with supportive care efforts and electrolyte replacement as already started. Oral potassium replacement is preferred to IV and she has not vomited in several hours and is now tolerating some oral liquids. She was able to keep down the first round of oral potassium powder in apple juice. Her hypomagnesemia is also contributing to her hypokalemia--which is from poor PO intake and recent vomiting--and will be replaced. Phos level is normal. Exam is unremarkable and she denies any significant abdominal pain. Cont supportive care and discharge to home once she is able to reliably tolerate PO. Cont antiemetics per OB in accordance with ACOG guidelines for safety in . Repeat labwork in the morning if she is still here. Thank you for the consultation. WE will continue to follow her progress through this hospitalization. DO Bandar History of Present Illness Reason for Consultation: Electrolyte disturbance Requesting Physician: Dr. Tejada Attending Physician: Ant Dennison MD History of Present Illness This is a 28 yo F with PMHx of P1001 at 32 weeks with persistent vomiting for one week. Unable to keep anything down despite oral anti-emetics and potassium replacement. Pt has K 3.0, Mag 1.5 today. Other PMHx includes nephrolithiasis prior to requiring 3 different episodes of stents by urology, symptomatic palpitations, HTN and anxiety. She was recently admitted here at [facility] from 08/17/23-08/22/23 [place] [facility] [place]one[place] s/p laser lithotripsy on 08/30/23, discharged home, and then again admitted at [facility] on 09/25/23-10/09/23 for nephrolithiasis. There was no hydronephrosis on repeat renal ultrasound, and mention of kidney stone in bilateral kidney at that time. Multiple kidney stones were passed during this that time. She was placed on oxycodone during her most recent hospitalization, but is no longer taking this. She admits that since discharge on 10/09 has had minimal appetite, nausea, vomiting, and diarrhea at least twice daily. Pt was also noted to have distended gallbladder on imaging but had negative RUQ ultrasound and LFTs were WNL. She has been on metoprolol for sinus tachycardia, but was increased to 25 mg daily for HR up to the 120-130s which was thought due to pain. Pt states she has had abdominal pain/cramping at times, which is relieved with bowel movements. Pt has been tolerating fluids today orally including Gatorade, water. A diet for lunch has been delivered and she feels like she could try this. Pt has had zofran and reglan IV for nausea this morning. She is on fluids IV currently, and states she feels somewhat better. Pt denies fever, chills, sweats at this time. Allergies Allergy/AdvReac Type Severity Reaction Status Date / Time aluminum [From Drysol] Allergy Intermediate Hives Verified 10/15/23 18:01 Home Medications Medication Instructions Recorded Confirmed Type PNV 153-FA 400 mcg-om3 35 mg-dha 1 tab PO DAILY 08/17/23 10/15/23 History 25 mg-epa 5 mg-fish oil chew tablet ( Gummies) bupropion HCl 300 mg 24 hr tablet, 300 mg PO QAM 08/17/23 10/15/23 History extended release iron 18 mg tablet 18 mg PO BID 08/17/23 10/15/23 History metoprolol succinate 25 mg 12.5 mg PO QAM 08/17/23 10/15/23 History tablet,extended release 24 hr ondansetron HCl 8 mg tablet 8 mg PO Q8H PRN NAUSEA/VOMITING 08/17/23 10/15/23 History pyridoxine (vitamin B6) 100 mg 100 mg PO DAILY 08/17/23 10/15/23 History tablet (Vitamin B-6) trazodone 50 mg tablet 50 mg PO HS 08/17/23 10/15/23 History docusate sodium 100 mg capsule 100 mg PO BID PRN Constipation 09/25/23 10/15/23 History famotidine 20 mg tablet 20 mg PO QAM PRN acid reflux 09/25/23 10/15/23 History polyethylene glycol 3350 17 gram 17 g PO BID PRN Constipation 09/25/23 10/15/23 History oral powder packet (Miralax) magnesium oxide 400 mg (241.3 mg 400 mg PO BID #60 tabs 10/09/23 10/15/23 Rx magnesium) tablet tamsulosin 0.4 mg capsule 0.4 mg PO BID #20 caps 10/09/23 10/15/23 Rx oxycodone 5 mg tablet 5 - 10 mg PO Q4H PRN Pain 10/11/23 10/15/23 History cephalexin 500 mg capsule 500 mg PO BID 3 days #6 caps 10/15/23 Rx Patient History Medical History Nephrolithiasis and not yet delivered in third trimester History of nephrolithiasis Abdominal pain Right ovarian cyst Developmental dyslexia Depression with anxiety GERD (gastroesophageal reflux disease) Myofascial pain Chronic low back pain Herniated disc LUMBAR AND CERVICAL (FULL ROM) History of kidney stones Sacroiliac joint pain Anxiety Vitamin D deficiency HX, ? CURRENT STATUS Surgical History History of laparoscopy History of breast lump/mass excision (01/17/22) Excision of left breast mass. Dr. Jason 01/17/2022 S/P cystoscopy with ureteral stent placement 12/05/20 Dr. Lamont Ambrose- Cystoscopy, Left ureteroscopy, Laser lithotripsy, Stone basket extraction of stone, Left retrograde pyelogram, Left ureteral stent placement Nasal fracture Repair of nasal fracture Family History Mother No problems noted. Grandmother (Maternal) Lung cancer Oral cancer Other Cancer Hypertension Kidney stones Denies family history of Ovarian cancer Prostate cancer Heart disease Myocardial infarction Breast cancer Colorectal cancer Social History Smoking Status: Never smoker Tobacco Type: E-cigarettes / Vaping Second Hand Exposure: No; Do You Dip or Chew Tobacco: No; Tobacco Cessation Education Requested by Patient: No Hx Alcohol Use: No Hx Substance Use: No Preferred Language: Lithuanian Communication Ability: Effective Visual Impairment: No Limitations Hearing Ability: Normal Manager Studio Required: No Beliefs That Will Affect Care: None marital status: Single Current Living Situation: Family Current Living Situation Comment: boyfriend current occupational status: employed 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 @ [employer] How many Children do You have: 1 Feels Safe at Home: Yes Safety Concerns: Feels Safe At This Time Childhood Exposure to Second-Hand Smoke: No Diet: regular during the past year weight has: increased > 10 lbs Physical Activity Frequency: Daily Seatbelt Use: always Sunscreen Use: Yes Assistive Devices: None Review of Systems Review of Systems: Constitutional: No fever, sweats or chills Eyes: No diplopia, no worsening or blurred vision ENT: normal hearing, no trouble swallowing Respiratory: No cough, sputum, dyspnea at rest or on exertion Cardiovascular: No chest pain, tightness or palpitations Abdomen: As per HPI. Musculoskeletal: No joint pain, calf pain, swelling Neurologic: No weakness, numbness/tingling, or balance problems Psychiatric: No anxiety or depression Skin: No rash or itch Physical Exam Physical Exam: General: awake, alert, no apparent distress Head: Normocephalic, atraumatic ENT: PERRL, EOMI, no pharyngeal exudate, mucous membranes moist Chest: Clear to auscultation, on room air, no adventitious breath sounds Cardiac: Regular rate and rhythm, no murmur, no JVD, normal peripheral pulses, good capillary refill Abdominal: + , Hypoactive BS x 4 quadrants, soft, nondistended, nontender to palpation, no rebound or guarding Extremities: Normal inspection, no peripheral edema or erythema, calfs nontender to palpation Psych: Normal mood and affect Neuro: AAO x 3, strength intact bilaterally and rated 5/5, no motor deficits, speech is clear, no peripheral sensory deficits Results & Data Results & Data Vital Signs (Past 12 Hours) Vital Signs Temp Pulse Pulse Resp BP Pulse Ox O2 Del Method 10/17/23 07:15 36.8 C 86 16 122/73 97 Room Air 10/17/23 04:00 36.4 C L 79 20 115/64 97 Room Air Laboratory Results 10/15/23 15:40 Urine Culture - Final Urine,Clean Catch Three types or organisms present, all moderate counts probable skin tom. No further identifications or sensitivities to follow. 10/17/23 05:43 WBC 6.43 RBC 3.63 L Hgb 10.6 L Hct 31.8 L MCV 87.6 MCH 29.2 MCHC 33.3 RDW Std Deviation 43.8 RDW Coeff of Baldo 13.5 Plt Count 223 MPV 10.4 Immature Gran % (Auto) 0.5 Neut % (Auto) 61.0 Lymph % (Auto) 21.5 [place] % (Auto) 14.5 Eos % (Auto) 2.2 Baso % (Auto) 0.3 Neut # (Auto) 3.93 Lymph # (Auto) 1.38 [place] # (Auto) 0.93 H Eos # (Auto) 0.14 Baso # (Auto) 0.02 Immature Gran # (Auto) 0.03 Sodium 137 Potassium 3.1 L Chloride 105 Carbon Dioxide 23 Anion Gap 9 BUN 2 L Creatinine 0.45 L Est Cr Clr Drug Dosing 189.5 Est GFR ( Amer) > 150.0 Est GFR (Non-Af Amer) 135.4 BUN/Creatinine Ratio 4.4 L Glucose 84 Calcium 7.9 L Total Bilirubin 0.4 AST 13 ALT 13 Alkaline Phosphatase 86 Total Protein 5.7 L Albumin 3.0 L Globulin 2.7 Albumin/Globulin Ratio 1.1 (1) Nausea & vomiting Vomiting type: unspecified Qualified Code(s): R11.2 - Nausea with vomiting, unspecified (2) Weeks of gestation: unspecified Qualified Code(s): Z34.90 - Encounter for supervision of normal , unspecified, unspecified trimester
[2023-10-17 13:07] LABS: Anion Gap 9 (3-11); BUN Creatinine Ratio 4.3 (10-20); Blood Urea Nitrogen 2 mg/dl (6-23); Calcium 8.3 mg/dl (8.6-10.3); Carbon Dioxide 24 mmol/L (21-32); Chloride 104 mmol/L (98-107); Creatinine Clr Calc Pharmacy 181.4 ml/min; Est GFR (African American) > 150.0 ml/min; Est GFR (Non-African American) 133.5 ml/min; Glucose 77 mg/dl (70-99(Fasting)); Magnesium 1.4 mg/dl (1.7-2.4); Phosphorus 3.2 mg/dl (2.5-4.9); Potassium 3.4 mmol/L (3.5-5.1); Sodium 137 mmol/L (136-145)
[2023-10-17] MEDS: POTASSIUM CHLORIDE PWD 20 MEQ PACK PO SCH ×2 (13:08→19:37)
[2023-10-17] MEDS: MAGNESIUM SULFATE / D5W 1 GM/100 ML BAG IV SCH ×2 (14:10→16:52)
[2023-10-17] MEDS: traZODone HCL 50 MG TAB PO SCH (19:40)
[2023-10-18] MEDS: FAMOTIDINE 20 MG TAB PO PRN (04:12)
[2023-10-18] MEDS: METOCLOPRAMIDE HCL INJ 5 MG/ML 2 ML VIAL IV PRN (04:13)
[2023-10-18 06:52] LABS: Anion Gap 8 (3-11); BUN Creatinine Ratio 7.3 (10-20); Blood Urea Nitrogen 3 mg/dl (6-23); Calcium 8.1 mg/dl (8.6-10.3); Carbon Dioxide 24 mmol/L (21-32); Chloride 105 mmol/L (98-107); Creatinine Clr Calc Pharmacy 207.9 ml/min; Est GFR (African American) > 150.0 ml/min; Est GFR (Non-African American) 139.6 ml/min; Glucose 88 mg/dl (70-99(Fasting)); Magnesium 1.6 mg/dl (1.7-2.4); Potassium 3.7 mmol/L (3.5-5.1); Sodium 137 mmol/L (136-145)
[2023-10-18] MEDS: PRENATAL VITAMIN 1 TAB PO SCH (08:30)
[2023-10-18] MEDS: PYRIDOXINE HCL 50 MG TAB PO SCH (08:30)
[2023-10-18] MEDS: MAGNESIUM OXIDE 400 MG TAB PO SCH (08:30)
[2023-10-18] MEDS: TAMSULOSIN HCL 0.4 MG CAP PO SCH (08:30)
[2023-10-18] MEDS: FERROUS SULFATE 325 MG TAB PO SCH (08:30)
[2023-10-18] MEDS: buPROPion XL 300 MG TABCR PO SCH (08:30)
--- NOTE | 2023-10-18 12:55 | Progress Note ---
Date of Service October 18, 2023 Assessment & Plan (1) Vomiting: Plan: Nausea and vomiting s/p hypokalemia pt improved after potassium and Mg treatment Improved nausea and vomiting d/c home with instrcuions Nausea presence: unspecified Vomiting type: unspecified Qualified Code(s): R11.10 - Vomiting, unspecified (2) Hypokalemia: Admission and Anticipated Discharge Date Admission Date: October 15, 2023 Results & Data Vital Signs (Past 12 Hours) Vital Signs Temp Pulse Resp BP BP Pulse Ox O2 Del Method 10/18/23 07:30 36.8 C 97 H 18 115/76 98 Room Air 10/18/23 04:00 36.8 C 85 18 117/73
--- NOTE | 2023-10-18 13:00 | Discharge Summary ---
Date of Service October 18, 2023 Admission HPI Per Admitting Provider 28 F P1001 at 32 weeks with persistent vomiting for one week. Unable to keeep anything down despite oral anti-emetics. Discharge Data Consultations 10/15/23 19:42 ED Decision to Admit Stat 10/17/23 11:29 Consult Hospitalist Routine
[2023-10-18 13:28] LABS: Adenovirus F 40/41 PCR Not Detected (NotDetected); Astrovirus PCR Not Detected (NotDetected); Campylobacter PCR Not Detected (NotDetected); Cryptosporidium PCR Not Detected (NotDetected); Cyclospora cayetanensis PCR Not Detected (NotDetected); Entamoeba histolytica PCR Not Detected (NotDetected); Enteroaggregative E.coli(EAEC) Not Detected (NotDetected); Enteropathogenic E.coli (EPEC) Not Detected (NotDetected); Enterotoxigenic E.coli (ETEC) Not Detected (NotDetected); Giardia lamblia PCR Not Detected (NotDetected); Norovirus GI/GII PCR Not Detected (NotDetected); Plesiomonas shigelloides PCR Not Detected (NotDetected); Rotavirus A PCR Not Detected (NotDetected); Salmonella PCR Not Detected (NotDetected); Sapovirus PCR Not Detected (NotDetected); Shiga-like Toxin E.coli (STEC) Not Detected (NotDetected); Shigella/Enteroinvasive E.coli Not Detected (NotDetected); Vibrio cholerae PCR Not Detected (NotDetected); Vibrio species PCR Not Detected (NotDetected); Yersinia enterocolitica PCR Not Detected (NotDetected)
--- NOTE | 2023-10-18 14:52 | Hospitalist Progress Note ---
Date of Service October 18, 2023 Assessment & Plan (1) Nausea & vomiting: (2) : (3) Hypokalemia: (4) Hypomagnesemia: (5) Electrolyte abnormality: Plan: Nausea and Vomiting Hypokalemia Hypomagnesemia - Pt has been persistently hypokalemic and hypomagnesemia during previous admissions -Likely secondary to nausea and vomiting -Potassium repleted, magnesium 1.6 Continue oral supplements at discharge. Hx Nephrolithiasis - Resolved - See HPI for complicated course and multiple hospitalizations recently - Noted multiple stones seen on imaging from last week, negative Renal US from 10/07, no hydronephrosis not yet delivered in the second trimester - 31 weeks gestation - monitoring per primary team - Continue daily MVI and iron supplementation DVT ppx: ambulatory Lines: 1 PIV, obtain new site due to blown IV GI/FEN: Regular diet as tolerated CODE: Full Admission and Anticipated Discharge Date Admission Date: October 15, 2023 Subjective Improvement in the nausea and vomiting. No other overnight events. Review of Systems Review of Systems: All systems reviewed & are unremarkable except as noted in Subjective Physical Exam Physical Exam: Constitutional: Alert, oriented x 3; not in distress. Respiratory: Bilateral vesicular breath sound. Cardiovascular: RRR, no murmur, no edema Vessels: no JVD or carotid bruit Chest: normal inspection of chest Musculoskeletal: no cyanosis or clubbing, extremities motor strength 5/5 Skin: no rashes, warm and dry normal turgor Results & Data Results & Data Vital Signs (Past 12 Hours) Vital Signs Temp Pulse Pulse Pulse Pulse Resp BP 10/18/23 13:10 36.8 C 67 97 H 85 130 H 18 117/73 10/18/23 07:30 36.8 C 97 H 18 10/18/23 04:00 36.8 C 85 18 117/73 BP Pulse Ox O2 Del Method 10/18/23 13:10 115/76 98 10/18/23 07:30 115/76 98 Room Air 10/18/23 04:00 (1) Nausea & vomiting Vomiting type: unspecified Qualified Code(s): R11.2 - Nausea with vomiting, unspecified (2) Weeks of gestation: unspecified Qualified Code(s): Z34.90 - Encounter for supervision of normal , unspecified, unspecified trimester
== END 2023-10-18 14:20 | disposition home or self-care (01) | DRG 832 ==
LOC: ED 14:39 → 4E2 20:16

== ENCOUNTER 2023-10-23 07:33 | Inpatient (IN) ==
--- NOTE | 2023-10-23 07:41 | Emergency Department Note ---
History of Present Illness General Chief complaint: Urinary Symptoms Stated complaint: VOMITING,UTI?,KIDNEY STONES? Time Seen by Provider: 10/23/23 07:40 History of Present Illness This is a 28-year-old female P1001 currently at 33 weeks that presents to the emergency department via private vehicle with complaints of "vomiting, left flank pain". The patient notes that she has been experiencing nausea and vomiting throughout the . She was recently admitted to the hospital for same symptoms. She notes that she was discharged a few days ago. She felt fine for a few hours. Then she notes return of nausea. She also notes left flank pain and some dysuria. She notes that she is on antibiotics but secondary to the persistent nausea and vomiting is not able to tolerate the oral antibiotics. She tried taking a dose last evening but unfortunately continued to vomit. She tried antiemetics this morning but unfortunately continued to vomit. Patient denies any fevers. She denies any central abdominal pain but does note some upper abdominal pain secondary to the vomiting. No vaginal bleeding. Home Medications Medication Instructions Recorded Confirmed Type PNV 153-FA 400 mcg-om3 35 mg-dha 1 tab PO DAILY 08/17/23 10/23/23 History 25 mg-epa 5 mg-fish oil chew tablet ( Gummies) bupropion HCl 300 mg 24 hr tablet, 300 mg PO QAM 08/17/23 10/23/23 History extended release iron 18 mg tablet 18 mg PO BID 08/17/23 10/23/23 History metoprolol succinate 25 mg 12.5 mg PO QAM 08/17/23 10/23/23 History tablet,extended release 24 hr ondansetron HCl 8 mg tablet 8 mg PO Q8H PRN NAUSEA/VOMITING 08/17/23 10/23/23 History pyridoxine (vitamin B6) 100 mg 100 mg PO DAILY 08/17/23 10/23/23 History tablet (Vitamin B-6) trazodone 50 mg tablet 50 mg PO HS 08/17/23 10/23/23 History docusate sodium 100 mg capsule 100 mg PO BID PRN Constipation 09/25/23 10/23/23 History famotidine 20 mg tablet 20 mg PO QAM PRN acid reflux 09/25/23 10/23/23 History polyethylene glycol 3350 17 gram 17 g PO BID PRN Constipation 09/25/23 10/23/23 History oral powder packet (Miralax) magnesium oxide 400 mg (241.3 mg 400 mg PO BID #60 tabs 10/09/23 10/23/23 Rx magnesium) tablet tamsulosin 0.4 mg capsule 0.4 mg PO BID #20 caps 10/09/23 10/23/23 Rx oxycodone 5 mg tablet 5 - 10 mg PO Q4H PRN Pain 10/11/23 10/23/23 History metoclopramide HCl 10 mg tablet 10 mg PO Q6H 10 days #40 tabs 10/18/23 10/23/23 Rx (Reglan) ondansetron 8 mg disintegrating 8 mg PO Q8H #30 tabs 10/18/23 10/23/23 Rx tablet promethazine 25 mg rectal 25 mg OH Q6H #40 ea 10/18/23 10/23/23 Rx suppository Allergies Allergy/AdvReac Type Severity Reaction Status Date / Time aluminum [From Drysol] Allergy Intermediate Hives Verified 10/15/23 18:01 Past Med/Surg History Medical History Nephrolithiasis and not yet delivered in third trimester History of nephrolithiasis Abdominal pain Right ovarian cyst Developmental dyslexia Depression with anxiety GERD (gastroesophageal reflux disease) Myofascial pain Chronic low back pain Herniated disc LUMBAR AND CERVICAL (FULL ROM) History of kidney stones Sacroiliac joint pain Anxiety Vitamin D deficiency HX, ? CURRENT STATUS Surgical History History of laparoscopy History of breast lump/mass excision (01/17/22) Excision of left breast mass. Dr. Jason 01/17/2022 S/P cystoscopy with ureteral stent placement 12/05/20 Dr. Lamont Ambrose- Cystoscopy, Left ureteroscopy, Laser lithotripsy, Stone basket extraction of stone, Left retrograde pyelogram, Left ureteral stent placement Nasal fracture Repair of nasal fracture Family History Mother No problems noted. Grandmother (Maternal) Lung cancer Oral cancer Other Cancer Hypertension Kidney stones Denies family history of Ovarian cancer Prostate cancer Heart disease Myocardial infarction Breast cancer Colorectal cancer Social History Smoking Status: Never smoker Tobacco Type: E-cigarettes / Vaping Second Hand Exposure: No; Do You Dip or Chew Tobacco: No; Tobacco Cessation Education Requested by Patient: No Hx Alcohol Use: No Hx Substance Use: No Preferred Language: Czech Communication Ability: Effective Visual Impairment: No Limitations Hearing Ability: Normal Sailor Required: No Beliefs That Will Affect Care: None marital status: Single Current Living Situation: Significant Other Current Living Situation Comment: boyfriend current occupational status: employed current occupation: [employer] @ [employer] How many Children do You have: 1 Other Information That Helps Us Care for You: No Feels Safe at Home: Yes Safety Concerns: Feels Safe At This Time Childhood Exposure to Second-Hand Smoke: No Diet: regular during the past year weight has: increased > 10 lbs Physical Activity Frequency: Daily Seatbelt Use: always Sunscreen Use: Yes Assistive Devices: None Review of Systems A total of 10 systems reviewed and were otherwise negative Physical Exam Vital Signs Vital Signs - 24 hr 10/23/23 07:43 10/23/23 09:51 10/23/23 10:00 Temperature 36.6 C Temperature Source Temporal Artery Scan Pulse Rate 134 H Pulse Rate [Apical] 87 Respiratory Rate 18 18 Respiratory Effort / Characteristics Non-Labored Spontaneous Non-Labored Accessory Muscle Use Respiratory Depth Normal Normal Respiratory Pattern Regular Regular Blood Pressure 130/101 H Blood Pressure [Right Arm] 119/89 Blood Pressure Mean 110 Blood Pressure Mean [Right Arm] 99 Blood Pressure Position Sitting Pulse Oximetry 98 98 98 Oxygen Delivery Method Room Air Room Air Room Air Sepsis Recent Fever Within 48 Hours No Sepsis New/Unexplained Change in Mental Status N/A Sepsis Action Taken by Nursing No Action Required VITAL SIGNS - Vital signs and nursing notes were reviewed. Tachycardic, blood pressure 130/101, otherwise stable. GENERAL -28-year-old female appearing her stated age who is in no acute distress. She is holding an emesis bag with watery yellow liquid contents. Communicates well with provider and answers questions appropriately. SKIN - Without rashes. No meningeal or petechial rash. HEAD - NC/AT. EYES - PERRL with EOMI bilaterally. Sclera anicteric. EARS - No deformities of external structures noted on gross examination bilaterally. NOSE - Midline and without cyanosis. No epistaxis or purulent drainage noted. MOUTH/OROPHARYNX - Without perioral cyanosis. NECK - Neck with FROM. No nuchal rigidity. LUNGS - Chest wall symmetric without accessory muscle use, intercostals retractions, or central cyanosis. Normal vesicular breath sounds CTA B/L. No wheezes, rales, or rhonchi appreciated. CARDIAC - RRR with S1/S2. No murmur, rubs, or gallops appreciated. ABDOMEN - Abdominal contour normal without pulsations. Expected gestation of 33 weeks noted. BS normoactive all four quadrants. No tenderness, palpable masses, hepatosplenomegaly, or ascites noted. EXTREMITIES - No clubbing or peripheral cyanosis. +5/5 strength noted in UE/LE bilaterally. NEUROLOGIC - Cranial nerves II through XII grossly intact. PSYCH - A&Ox3 and cooperates fully with examiner. Pt is very pleasant and interacts well with examiner. Course Administered Medications Diphenhydramine HCl (Diphenhydramine 50 Mg/Ml Vial) 25 mg IV Q6 PRN PRN Reason: Nausea And Vomiting Stop: 11/22/23 10:56 Last Admin: 10/23/23 22:37 Dose: 25 mg Documented By: CLIF Hydromorphone HCl (Hydromorphone Inj 0.5 Mg/0.5 Ml Syr) 0.25 mg IV Q4H PRN PRN Reason: Pain Stop: 11/06/23 16:56 Last Admin: 10/24/23 05:56 Dose: 0.25 mg Documented By: Admin: 10/24/23 01:41 Dose: 0.25 mg Documented By: Admin: 10/23/23 21:35 Dose: 0.25 mg Documented By: Admin: 10/23/23 17:25 Dose: 0.25 mg Documented By: LJ Lactated Ringer's (Lr) 1,000 mls @ 125 mls/hr IV .Q8H PRN; Protocol PRN Reason: L&D Protocol Stop: 10/25/23 10:51 Last Admin: 10/24/23 04:00 Dose: 125 mls/hr Documented By: Infusion: 10/24/23 04:00 Dose: Infused Documented By: Admin: 10/23/23 22:28 Dose: 125 mls/hr Documented By: CLIF Acetaminophen (Ofirmev) 1,000 mg in 100 mls @ 400 mls/hr IV Q8H PRN PRN Reason: Pain or Fever Stop: 10/26/23 13:12 Last Admin: 10/24/23 06:32 Dose: 400 mls/hr Documented By: Infusion: 10/23/23 22:45 Dose: Infused Documented By: Admin: 10/23/23 22:30 Dose: 400 mls/hr Documented By: Infusion: 10/23/23 14:55 Dose: Infused Documented By: Admin: 10/23/23 14:40 Dose: 400 mls/hr Documented By: JL Magnesium Oxide (Magnesium Oxide 400 Mg Tab) 400 mg PO BID HAM Stop: 11/22/23 20:59 Last Admin: 10/23/23 21:35 Dose: 400 mg Documented By: CLIF Ondansetron HCl (Ondansetron Inj 2 Mg/Ml 2 Ml Vial) 4 mg IV Q4H PRN PRN Reason: Nausea First Line Stop: 11/22/23 10:56 Last Admin: 10/24/23 04:13 Dose: 4 mg Documented By: Admin: 10/23/23 21:35 Dose: 4 mg Documented By: Admin: 10/23/23 15:43 Dose: 4 mg Documented By: JL Tamsulosin HCl (Tamsulosin Hcl 0.4 Mg Cap) 0.4 mg PO BID HAM Stop: 11/22/23 20:59 Last Admin: 10/23/23 21:35 Dose: 0.4 mg Documented By: CLIF Trazodone HCl (Trazodone Hcl 50 Mg Tab) 50 mg PO HAM Stop: 11/22/23 20:59 Last Admin: 10/23/23 21:35 Dose: 50 mg Documented By: CLIF Discontinued Medications Diphenhydramine HCl (Diphenhydramine 50 Mg/Ml Vial) 25 mg IV NOW STA Stop: 10/23/23 08:03 Last Admin: 10/23/23 08:42 Dose: 25 mg Documented By: SOMMER Hydromorphone HCl (Hydromorphone Inj 0.5 Mg/0.5 Ml Syr) 0.5 mg IV NOW STA Stop: 10/23/23 09:47 Last Admin: 10/23/23 10:01 Dose: 0.5 mg Documented By: SOMMER Hydromorphone HCl (Hydromorphone Inj 0.5 Mg/0.5 Ml Syr) 0.25 mg IV NOW STA Stop: 10/23/23 11:45 Last Admin: 10/23/23 12:04 Dose: 0.25 mg Documented By: DARRIUS Sodium Chloride (Nss) 1,000 mls @ 999 mls/hr IV .Q1H1M HAM Stop: 10/23/23 09:00 Last Infusion: 10/23/23 09:55 Dose: Infused Documented By: Admin: 10/23/23 08:01 Dose: 999 mls/hr Documented By: SOMMER Famotidine (Pepcid 20mg Iv Push) 20 mg in 5 mls @ 2.5 mls/min IV NOW STA Stop: 10/23/23 08:03 Last Admin: 10/23/23 08:42 Dose: 2.5 mls/min Documented By: SOMMER Thiamine HCl 100 mg/ Syringe 10 mls @ 2 mls/min IV NOW STA Stop: 10/23/23 08:13 Last Admin: 10/23/23 08:43 Dose: 2 mls/min Documented By: SOMMER Sodium Chloride (Nss) 1,000 mls @ 999 mls/hr IV .Q1H1M HAM Stop: 10/23/23 11:15 Last Infusion: 10/23/23 12:05 Dose: Infused Documented By: Admin: 10/23/23 10:49 Dose: 999 mls/hr Documented By: SOMMER Ceftriaxone Sodium (Rocephin) 2,000 mg in 50 mls @ 100 mls/hr IV NOW STA Stop: 10/23/23 10:40 Last Infusion: 10/23/23 12:15 Dose: Infused Documented By: Admin: 10/23/23 10:49 Dose: 100 mls/hr Documented By: SOMMER Dextrose/Lactated Ringer's (D5w And Lactated Ringers) 1,000 mls @ 125 mls/hr IV .Q8H HAM Stop: 10/23/23 21:14 Last Infusion: 10/23/23 22:40 Dose: Infused Documented By: Admin: 10/23/23 14:40 Dose: 125 mls/hr Documented By: JL Metoclopramide HCl (Metoclopramide Hcl Inj 5 Mg/Ml 2 Ml Vial) 5 mg IV ONE ONE Stop: 10/23/23 08:03 Last Admin: 10/23/23 08:42 Dose: 5 mg Documented By: SOMMER Ondansetron HCl (Ondansetron Inj 2 Mg/Ml 2 Ml Vial) 4 mg IV NOW STA Stop: 10/23/23 09:47 Last Admin: 10/23/23 10:01 Dose: 4 mg Documented By: SOMMER Oxycodone HCl (Oxycodone Hcl Ir 5 Mg Tab (Immediate Release)) Confirm Administered Dose 5 mg .ROUTE .STK-MED ONE Stop: 10/23/23 15:42 Last Admin: 10/23/23 15:43 Dose: 5 mg Documented By: JL Medical Decision Making Laboratory Data 10/23/23 07:50 10/23/23 07:50 Lab Results 10/23/23 Range/Units 07:50 WBC 9.36 (4.8-10.8) K/ul RBC 4.69 (4.20-5.40) M/uL Hgb 13.5 (12.0-16.0) g/dl Hct 41.0 (37.0-47.0) % MCV 87.4 (80.0-100.0) fL MCH 28.8 (25.0-34.0) pg MCHC 32.9 (32.0-36.0) g/dL RDW Std Deviation 42.5 (36.4-46.3) fL RDW Coeff of Baldo 13.2 (11.5-14.5) % Plt Count 295 (130-400) K/uL MPV 10.4 (9.4-12.4) fL Immature Gran % (Auto) 0.3 % Neut % (Auto) 74.5 % Lymph % (Auto) 15.4 % [place] % (Auto) 9.6 % Eos % (Auto) 0.0 % Baso % (Auto) 0.2 % Neut # (Auto) 6.97 H (1.40-6.50) K/uL Lymph # (Auto) 1.44 (1.20-3.40) K/uL [place] # (Auto) 0.90 H (0.11-0.59) K/uL Eos # (Auto) 0.00 (0.00-0.50) K/uL Baso # (Auto) 0.02 (0.00-0.20) K/uL Immature Gran # (Auto) 0.03 (0.01-0.20) K/uL Sodium 134 L (136-145) mmol/L Potassium 4.3 (3.5-5.1) mmol/L Chloride 98 (98-107) mmol/L Carbon Dioxide 25 (21-32) mmol/L Anion Gap 11 (3-11) BUN 8 (6-23) mg/dl Creatinine 0.76 (0.6-1.2) mg/dl Est Cr Clr Drug Dosing 111.0 ml/min Est GFR ( Amer) 122.9 ml/min Est GFR (Non-Af Amer) 106.0 ml/min BUN/Creatinine Ratio 10.5 (10-20) Glucose 96 (70-99(Fasting)) mg/dl Calcium 9.3 (8.6-10.3) mg/dl Phosphorus 2.9 (2.5-4.9) mg/dl Magnesium 1.7 (1.7-2.4) mg/dl Total Bilirubin 0.6 (0.2-1.0) mg/dl AST 19 (13-39) U/L ALT 20 (7-52) U/L Alkaline Phosphatase 106 H (34-104) U/L Total Protein 7.3 (6.0-8.3) gm/dl Albumin 3.7 (3.4-5.0) gm/dl Globulin 3.6 (2.5-4.0) gm/dl Albumin/Globulin Ratio 1.0 (0.9-2) Imaging Data Radiologist's Impression: Obstetrics Ultrasound 10/23/23 07:53 US OB limited CLINICAL HISTORY: L flank pain, nausea, vomiting, 33 weeks . COMPARISON STUDY: Abdomen and pelvis CT 09/25/2023. Obstetrical ultrasound 06/03/2023. FINDINGS: Transabdominal scanning of the fetus was performed with uniforms sales representative images submitted. There is a single intrauterine gestation demonstrating a heart rate of 145 BPM. The fetus is in a cephalic presentation. There is an anterior placenta. No evidence for subchorionic hematoma. anatomic survey was not performed. Amniotic fluid index is within normal limits measuring 10.7 cm. IMPRESSION: A single viable intrauterine gestation with a heart rate of 145 BPM. ACT 112: Negative or not required by law. Electronically signed by: Triston Castillo M.D. 10/23/2023 9:10 AM Renal Ultrasound 10/23/23 07:53 ULTRASOUND KIDNEYS AND BLADDER CLINICAL HISTORY: Left flank pain. . Vomiting. Urinary tract infection. COMPARISON STUDY: Renal ultrasound dated 10/07/2023. Abdominal CT dated 09/25/2023. TECHNIQUE: Real-time, grayscale, and color flow sonography of the kidneys and bladder is performed. Images are reviewed in the transverse and longitudinal planes. FINDINGS: Kidneys: The kidneys are normal in size and echotexture. The right kidney measures 10.7 cm in length and the left kidney measures 11.9 cm in length. There is no hydronephrosis. No shadowing renal calculi are identified. There is no sonographic evidence of contour deforming renal mass lesion. No perinephric fluid is identified. Bladder: The gravid uterus is noted in the pelvis. The bladder is decompressed and could not be assessed. IMPRESSION: 1. The kidneys are normal in size and without hydronephrosis. 2. Renal calculi seen on CT were not visualized by ultrasound. 3. The bladder is decompressed and could not be assessed. ACT 112: Negative or not required by law. Electronically signed by: Lawrence Olivier M.D. 10/23/2023 8:48 AM [facility] Narrative Patient was seen and evaluated as above in room A03. Review was performed of triage nursing notes and vital signs. I did review pertinent previous visits and patient history. After obtaining a thorough history and physical examination the above work up was performed. Patient presents to us today for assessment of ongoing nausea and vomiting during currently 33 weeks now with left flank pain. Patient has a history of kidney stones and notes that this has been complicated by kidney stones as well. No fever but does note dysuria. Patient was recently admitted here to the hospital for ongoing nausea and vomiting and appears to admitted from 10/15/2023 until 10/18/2023. Options of care were discussed with the patient. IV access was established. Labs were drawn. Ultrasound of the fetus was performed and this revealed a single viable intrauterine gestation with a heart rate of 145 bpm. Renal ultrasound also obtained revealing kidneys normal in size and without hydronephrosis. The patient continues to have nausea and vomiting during . She appears dehydrated at this time. Heart rate on arrival here is 134. Labs reveal no leukocytosis or concerning anemia. No emergent metabolic disturbance. Mild hyponatremia 134. The patient's magnesium, phosphorus and potassium today are appropriate and are within normal range. With the patient noting inability to tolerate oral intake at home at this time, IV routes are felt to be warranted. At this time we will proceed with IV fluids, IV Reglan, IV Pepcid, IV Benadryl, and I will also add on IV thiamine noting the patient's persistent nausea and vomiting with poor oral intake during . I did thoroughly review benefit versus risk of these medications with the patient and through shared decision making with the patient we elected to proceed. It is felt that the benefit outweighs risk. Patient was reevaluated with some improvement but continued to have left flank pain and recurrent nauseated sensation. IV Zofran ordered, additional IV fluids were also ordered. Patient did inquire about something for pain. After thoroughly discussing benefit versus risks as well as after reviewing the patient's previous visits during her and admissions we will proceed with a dose of IV Dilaudid as she notes she has done well with that previously. I also thoroughly reviewed benefit versus risk of this medication with the patient. At this time through shared decision making we will proceed. With the patient's persistence of symptoms, inpatient setting is felt to be warranted. Case discussed with the on-call AIRCRAFT ENGINE MECHANIC OVERHAUL, Dr. Will. Please refer to further documentation regarding her stay. Case was discussed with the attending physician. GCS: 15 In the evaluation and treatment of this patient the following differential diagnoses were entertained: UTI, pyelonephritis, sepsis, hyperemesis gravidarum, malnutrition, electrolyte disturbance, dehydration, among others. Impression & Plan Nausea & vomiting, Abdominal pain in Discharge Plan Visit Data Chief Complaint: Urinary Symptoms Stated Complaint: VOMITING,UTI?,KIDNEY STONES? ED Provider: Yoel Alfaro ED Midlevel Provider: David Schwarz Discharge Problem: Nausea & vomiting, Abdominal pain in Patient Disposition: Admitted As Inpatient Condition: Good Discharge Instructions Interventions: ED Discharge Assessment Last Done: 10/23/23 12:39 Discharge Problem: Nausea & vomiting Qualifiers: Vomiting type: unspecified Qualified Code(s): R11.2 - Nausea with vomiting, unspecified
--- OUTSIDE RECORDS SUMMARY | 2023-10-23 07:41 | External Medical Summary | Summary of Care ---
Author Name Unknown Organization [facility] Address [address] [place] [address] Phone [phone] Care Team Providers Care Pulmonary Function Technologist Name Role Phone Unavailable Primary Care Provider Unavailabl e Reason for Visit * Reason Onset Date Comments Hospital Follow-Up 10/19/2023 EDITH Encounter Details Date Type Department Care Team (Late st Contact Info) Description 10/19/2023 Telephone Ancillary [facility] [address] [place], [place] [id number] Viola Anguiano RN Hospital Follow-Up (EDITH) Allergies No known active allergiesdocumented as of this encounter (statuses as of 10/19/2023) Medications Medication Sig Dispensed Refills Start Date [...] as of this encounter (statuses as of 10/19/2023) Active Problems Problem Noted Date Diagnosed Date [...] and baclofen with KOP. Planning just [facility] and tylenol prn Thyroiditis 02/03/2015 Hyperthyroidism 01/25/2015 Estimated Date of Delivery Comme nts Yes 12/10/2023 Based on last me nstrual period of 03/05/2023 documented as of this encounter (statuses as of 10/19/2023) Resolved Problems Problem Noted Date Diagnosed Date Resolved Date Acute vaginitis 05/09/2016 01/17/2018 Vitamin D deficiency 03/10/2016 018 Polyhydramnios, antepartum complication 09/29/2014 10/23/2014 Overview: 09/24/14, POP = 27.6. Pt inpatient at [facility] currently. Attending (Dr. Sorensen) aware. INFORMATION 09/21/2014 10/23/2014 Overview: Scan on 09/17/14; POP; 24.9 , normal first 03/03/201406/2015 Overview: Failed 50 gm glucola. Passed 3 hr GTT. Baby: "Vitor". GBS negative. Asthma, mild persistent 07/25/201201/13 COSTOCHONDRITIS 01/25/2010 03/03/2014 Acute URI 01/25/2010 03/03/2014 Cough 01/25/2010 03/03/2014 Fever 01/25/2010 03/03/2014 Routine medical exam 01/25/2010 018 documented as of this encounter (statuses as of 10/19/2023) Immunizations Name Administration Dates Next Due DTP [...] money to get more. Never true 04/30/2023 Whitehouse Depression Scale Answer Date Recorded Whitehouse Depression Scale Total 6 09/05/2023 The thought [...] encounter Miscellaneous Notes * Telephone Encounter - Viola Anguiano, EVITA - 10/19/2023 8:02 AM EST Chart reviewed and EDITH not indicated, Pt has a follow up with [facility] No pcp follow up recommended at this time. documented in this encounter Plan of Treatment Upcoming Encounters Date Type Department Care Team (Late st Contact Info) Description 11/09/2023 8:30 AM EST Office Visit Cardiology, [facility] [address] [facility] [place] [id number] Audra Noriega PA-C [address] [place] [address] [place] [id number] Health Maintenance Due Date Last Done Comments [...]
[2023-10-23] MEDS ORDERED: SODIUM CHLORIDE 0.9% 1,000 ML IV SCH ×2 (08:00→10:15)
[2023-10-23] MEDS ORDERED: METOCLOPRAMIDE HCL INJ 5 MG/ML 2 ML VIAL IV ONE (08:02)
[2023-10-23] MEDS ORDERED: FAMOTIDINE 20MG IV PUSH 20 MG/5 ML SYR IV STA (08:02)
[2023-10-23] MEDS ORDERED: diphenhydrAMINE 50 MG/ML VIAL IV STA (08:02)
[2023-10-23] MEDS ORDERED: THIAMINE HCL 100 MG in SYRINGE 9 ML IV STA (08:09)
[2023-10-23 08:13] LABS: Basophils # (auto) 0.02 K/uL (0.00-0.20); Basophils % (auto) 0.2 %; Hemoglobin 13.5 g/dl (12.0-16.0); Immature Granulocytes # (auto) 0.03 K/uL (0.01-0.20); Immature Granulocytes % (auto) 0.3 %; Lymphocytes # (auto) 1.44 K/uL (1.20-3.40); Lymphocytes % (auto) 15.4 %; Mean Corpuscular Hemoglobin 28.8 pg (25.0-34.0); Mean Corpuscular Hgb Conc 32.9 g/dL (32.0-36.0); Mean Corpuscular Volume 87.4 fL (80.0-100.0); Mean Platelet Volume 10.4 fL (9.4-12.4); Monocytes % (auto) 9.6 %; Neutrophils # (auto) 6.97 K/uL (1.40-6.50); Neutrophils % (auto) 74.5 %; Platelet Count 295 K/uL (130-400); RDW Coefficient of Variation 13.2 % (11.5-14.5); RDW Standard Deviation 42.5 fL (36.4-46.3); Red Blood Count 4.69 M/uL (4.20-5.40); White Blood Count 9.36 K/ul (4.8-10.8)
[2023-10-23 08:30] LABS: Albumin Level 3.7 gm/dl (3.4-5.0); BUN Creatinine Ratio 10.5 (10-20); Bilirubin,Total 0.6 mg/dl (0.2-1.0); Calcium 9.3 mg/dl (8.6-10.3); Est GFR (African American) 122.9 ml/min; Globulin 3.6 gm/dl (2.5-4.0); Magnesium 1.7 mg/dl (1.7-2.4); Phosphorus 2.9 mg/dl (2.5-4.9); Potassium 4.3 mmol/L (3.5-5.1); Total Protein 7.3 gm/dl (6.0-8.3)
--- NOTE | 2023-10-23 08:49 | Ultrasound Report ---
ULTRASOUND KIDNEYS AND BLADDER CLINICAL HISTORY: Left flank pain. . Vomiting. Urinary tract infection. COMPARISON STUDY: Renal ultrasound dated 10/07/2023. Abdominal CT dated 09/25/2023. TECHNIQUE: Real-time, grayscale, and color flow sonography of the kidneys and bladder is performed. I mages are reviewed in the transverse and longitudinal planes. FINDINGS: Kidneys: The kidneys are normal in size and echotexture. The right kidney measures 10.7 cm in length and the left kidney measures 11.9 cm in length. There is no hydronephrosis. No shadowing renal calcu li are identified. There is no sonographic evidence of contour deforming renal mass lesion. No perine phric fluid is identified. Bladder: The gravid uterus is noted in the pelvis. The bladder is decompressed and could not be asses sed. IMPRESSION: 1. The kidneys are normal in size and without hydronephrosis. 2. Renal calculi seen on CT were not visualized by ultrasound. 3. The bladder is decompressed and could not be assessed. ACT 112: Negative or not required by law. Electronically signed by: Larwence Olivier M.D. 10/23/2023 8:48 AM
--- NOTE | 2023-10-23 09:11 | Ultrasound Report ---
US OB limited CLINICAL HISTORY: L flank pain, nausea, vomiting, 33 weeks . COMPARISON STUDY: Abdomen and pelvis CT 09/25/2023. Obstetrical ultrasound 06/03/2023. FINDINGS: Transabdominal scanning of the fetus was performed with hostess party sales representative images submitted. Th ere is a single intrauterine gestation demonstrating a heart rate of 145 BPM. The fetus is in a cephalic presentation. There is an anterior placenta. No evidence for subchorionic hematoma. a natomic survey was not performed. Amniotic fluid index is within normal limits measuring 10.7 cm. IMPRESSION: A single viable intrauterine gestation with a heart rate of 145 BPM. ACT 112: Negative or not required by law. Electronically signed by: Triston Castillo M.D. 10/23/2023 9:10 AM
[2023-10-23] MEDS ORDERED: ONDANSETRON INJ 2 MG/ML 2 ML VIAL IV STA (09:46)
[2023-10-23] MEDS ORDERED: HYDROmorphone INJ 0.5 MG/0.5 ML SYR IV STA ×2 (09:46→11:44)
[2023-10-23 10:05] LABS: Appearance Urine Cloudy (Clear); Bacteria Urine Automated 1+ (Negative); Blood Urine 3+ (Negative); Color Urine Dark Yellow; Epithelial Cell Urine Auto >30 /lpf (0-5); Glucose Urine UA Negative (Negative); Ketones Urine 4+ (Negative); Leukocyte Esterase Urine 2+ (Negative); Nitrite Urine Negative (Negative); Protein Urine 1+ (Negative); RBC Urine Automated >30 /hpf (0-4); Specific Gravity Urine 1.021 (1.000-1.030); Urobilinogen Urine Negative (Negative); WBC Urine Automated >30 /hpf (0-5)
[2023-10-23 10:08] LABS: Bilirubin Urine 1+ (Negative)
[2023-10-23] MEDS ORDERED: cefTRIAXone SODIUM 2,000 MG/50 ML BAG IV STA (10:11)
[2023-10-23] MEDS ORDERED: diphenhydrAMINE 50 MG/ML VIAL IV PRN (10:57)
[2023-10-23] MEDS ORDERED: METOCLOPRAMIDE HCL INJ 5 MG/ML 2 ML VIAL IV PRN (10:57)
[2023-10-23] MEDS ORDERED: NON-FORMULARY MEDICATION (Ondansetron Hcl 8 mg tablet) PO PRN (11:50)
[2023-10-23] MEDS ORDERED: METOCLOPRAMIDE HCL 10 MG TABLET PO SCH (11:50)
[2023-10-23] MEDS ORDERED: POLYETHYLENE (MIRALAX) 17 GM PACK PO PRN (11:50)
[2023-10-23] MEDS ORDERED: FAMOTIDINE 20 MG TAB PO PRN (11:50)
[2023-10-23] MEDS ORDERED: ONDANSETRON 8MG OD TAB PO SCH (11:50)
[2023-10-23] MEDS ORDERED: DOCUSATE SODIUM 100 MG CAP PO PRN (11:50)
[2023-10-23] MEDS ORDERED: PROMETHAZINE HCL 25 MG SUPP PR SCH (11:50)
[2023-10-23] MEDS ORDERED: D5W AND LACTATED RINGERS 1,000 ML IV SCH (13:15)
--- NOTE | 2023-10-23 13:23 | History & Physical Report ---
Date of Service October 23, 2023 Assessment & Plan (1) Vomiting: (2) Acute dehydration: (3) Kidney stones: (4) Nausea & vomiting: (5) Kidney stone complicating : Plan: 28 yo at 33 wks with nephrolithiasis, N&V, Dehydration, Ketonuria, U/A suggesting UTI VSS Afebrile Plan to admit for IV antiemetics, NST 1 shift, US for growth Consult hospitalist, All questions were answered. (6) and not yet delivered in third trimester: (7) Ketonuria: Admission and Anticipated Discharge Date Admission Date: October 23, 2023 History of Present Illness Primary Care Provider: Luisa Roldan MD This is a 28-year-old female currently at 33 weeks that presents to the emergency department via private vehicle with complaints of "vomiting, left flank pain". The patient notes that she has been experiencing nausea and vomiting for the last 1-2 months when she also has been passing kidney stones. She was recently admitted to the hospital. She notes that she was discharged about 5 days ago. She felt fine for a day only. Then she notes return of nausea. She also notes left flank pain and some dysuria. She has been passing stones and has passed 2 of them now in BR. She notes that she is to be on antibiotics for UTI but secondary to the persistent nausea and vomiting and is not able to tolerate the oral antibiotics. She tried taking a dose last evening but unfortunately continued to vomit. She tried antiemetics, Zofran, Reglan Rectal Phenergan, this morning but unfortunately continued to vomit. Patient denies any fevers. She denies any central abdominal pain but does note some upper abdominal pain secondary to the vomiting. She was given IV Zofran, Reglan, Benadryl in ER and feels better now She has h/o Depression anxiety and takes Buspiron for it. She has not taken it for 3 days. She has a psychiatrist. Denies any drug use nor withdrawal. Offered her psych consult but declined politely. No ctxs/ LOF/ VB +FM's Allergies Allergy/AdvReac Type Severity Reaction Status Date / Time aluminum [From Drysol] Allergy Intermediate Hives Verified 10/15/23 18:01 Home Medications Medication Instructions Recorded Confirmed Type PNV 153-FA 400 mcg-om3 35 mg-dha 1 tab PO DAILY 08/17/23 10/23/23 History 25 mg-epa 5 mg-fish oil chew tablet ( Gummies) bupropion HCl 300 mg 24 hr tablet, 300 mg PO QAM 08/17/23 10/23/23 History extended release iron 18 mg tablet 18 mg PO BID 08/17/23 10/23/23 History metoprolol succinate 25 mg 12.5 mg PO QAM 08/17/23 10/23/23 History tablet,extended release 24 hr ondansetron HCl 8 mg tablet 8 mg PO Q8H PRN NAUSEA/VOMITING 08/17/23 10/23/23 History pyridoxine (vitamin B6) 100 mg 100 mg PO DAILY 08/17/23 10/23/23 History tablet (Vitamin B-6) trazodone 50 mg tablet 50 mg PO HS 08/17/23 10/23/23 History docusate sodium 100 mg capsule 100 mg PO BID PRN Constipation 09/25/23 10/23/23 History famotidine 20 mg tablet 20 mg PO QAM PRN acid reflux 09/25/23 10/23/23 History polyethylene glycol 3350 17 gram 17 g PO BID PRN Constipation 09/25/23 10/23/23 History oral powder packet (Miralax) magnesium oxide 400 mg (241.3 mg 400 mg PO BID #60 tabs 10/09/23 10/23/23 Rx magnesium) tablet tamsulosin 0.4 mg capsule 0.4 mg PO BID #20 caps 10/09/23 10/23/23 Rx oxycodone 5 mg tablet 5 - 10 mg PO Q4H PRN Pain 10/11/23 10/23/23 History metoclopramide HCl 10 mg tablet 10 mg PO Q6H 10 days #40 tabs 10/18/23 10/23/23 Rx (Reglan) ondansetron 8 mg disintegrating 8 mg PO Q8H #30 tabs 10/18/23 10/23/23 Rx tablet promethazine 25 mg rectal 25 mg [place] Q6H #40 ea 10/18/23 10/23/23 Rx suppository Patient History Medical History Nephrolithiasis and not yet delivered in third trimester History of nephrolithiasis Abdominal pain Right ovarian cyst Developmental dyslexia Depression with anxiety GERD (gastroesophageal reflux disease) Myofascial pain Chronic low back pain Herniated disc LUMBAR AND CERVICAL (FULL ROM) History of kidney stones Sacroiliac joint pain Anxiety Vitamin D deficiency HX, ? CURRENT STATUS Surgical History History of laparoscopy History of breast lump/mass excision (01/17/22) Excision of left breast mass. Dr. Jason 01/17/2022 S/P cystoscopy with ureteral stent placement 12/05/20 Dr. Lamont Ambrose- Cystoscopy, Left ureteroscopy, Laser lithotripsy, Stone basket extraction of stone, Left retrograde pyelogram, Left ureteral stent placement Nasal fracture Repair of nasal fracture Family History Mother No problems noted. Grandmother (Maternal) Lung cancer Oral cancer Other Cancer Hypertension Kidney stones Denies family history of Ovarian cancer Prostate cancer Heart disease Myocardial infarction Breast cancer Colorectal cancer Social History Smoking Status: Never smoker Tobacco Type: E-cigarettes / Vaping Second Hand Exposure: No; Do You Dip or Chew Tobacco: No; Hx Alcohol Use: No Hx Substance Use: No Preferred Language: Chinese Communication Ability: Effective Visual Impairment: No Limitations Hearing Ability: Normal Scuba Diving Teacher Required: No Beliefs That Will Affect Care: None marital status: Single Current Living Situation: Family Current Living Situation Comment: boyfriend current occupational status: employed 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 Review of Systems as per Subjective / HPI Physical Exam Constitutional: WD/WN, vitals as above well developed, well nourished and comfortable (she looks healthy now, not in distress nor nauseous) Results & Data Vital Signs (Past 12 Hours) Vital Signs Temp Pulse Pulse Resp BP BP Pulse Ox 10/23/23 13:11 36.9 C 84 18 128/81 100 10/23/23 12:20 36.8 C 111 H 18 120/77 98 10/23/23 10:00 87 18 119/89 98 10/23/23 09:51 98 10/23/23 07:43 36.6 C 134 H 18 130/101 H 98 O2 Del Method 10/23/23 13:11 Room Air 10/23/23 12:20 Room Air 10/23/23 10:00 Room Air 10/23/23 09:51 Room Air 10/23/23 07:43 Room Air Diagnostic Findings 10/23/23 10/23/23 Range/Units Unknown 07:50 WBC 9.36 (4.8-10.8) K/ul RBC 4.69 (4.20-5.40) M/uL Hgb 13.5 (12.0-16.0) g/dl Hct 41.0 (37.0-47.0) % MCV 87.4 (80.0-100.0) fL MCH 28.8 (25.0-34.0) pg MCHC 32.9 (32.0-36.0) g/dL RDW Std Deviation 42.5 (36.4-46.3) fL RDW Coeff of [place] 13.2 (11.5-14.5) % Plt Count 295 (130-400) K/uL MPV 10.4 (9.4-12.4) fL Immature Gran % (Auto) 0.3 % Neut % (Auto) 74.5 % Lymph % (Auto) 15.4 % [place] % (Auto) 9.6 % Eos % (Auto) 0.0 % Baso % (Auto) 0.2 % Neut # (Auto) 6.97 H (1.40-6.50) K/uL Lymph # (Auto) 1.44 (1.20-3.40) K/uL [place] # (Auto) 0.90 H (0.11-0.59) K/uL Eos # (Auto) 0.00 (0.00-0.50) K/uL Baso # (Auto) 0.02 (0.00-0.20) K/uL Immature Gran # (Auto) 0.03 (0.01-0.20) K/uL Sodium 134 L (136-145) mmol/L Potassium 4.3 (3.5-5.1) mmol/L Chloride 98 (98-107) mmol/L Carbon Dioxide 25 (21-32) mmol/L Anion Gap 11 (3-11) BUN 8 (6-23) mg/dl Creatinine 0.76 (0.6-1.2) mg/dl Est Cr Clr Drug Dosing 111.0 ml/min Est GFR ( Amer) 122.9 ml/min Est GFR (Non-Af Amer) 106.0 ml/min BUN/Creatinine Ratio 10.5 (10-20) Glucose 96 (70-99(Fasting)) mg/dl Calcium 9.3 (8.6-10.3) mg/dl Phosphorus 2.9 (2.5-4.9) mg/dl Magnesium 1.7 (1.7-2.4) mg/dl Total Bilirubin 0.6 (0.2-1.0) mg/dl AST 19 (13-39) U/L ALT 20 (7-52) U/L Alkaline Phosphatase 106 H (34-104) U/L Total Protein 7.3 (6.0-8.3) gm/dl Albumin 3.7 (3.4-5.0) gm/dl Globulin 3.6 (2.5-4.0) gm/dl Albumin/Globulin Ratio 1.0 (0.9-2) Urine Color Dark Yellow Urine Appearance Cloudy A (Clear) Urine pH 7.0 (4.5-7.5) Ur Specific [place] 1.021 (1.000-1.030) Urine Protein 1+ H (Negative) Urine Glucose (UA) Negative (Negative) Urine Ketones 4+ H (Negative) Urine Blood 3+ H (Negative) Urine Nitrite Negative (Negative) Urine Bilirubin 1+ H (Negative) Urine Urobilinogen Negative (Negative) Ur Leukocyte Esterase 2+ H (Negative) Urine WBC (Auto) >30 H (0-5) /hpf Urine RBC (Auto) >30 H (0-4) /hpf U Hyaline Cast (Auto) 5-10 H (0-5) /lpf U Epithel Cells (Auto) >30 H (0-5) /lpf Urine Bacteria (Auto) 1+ H (Negative) (1) Vomiting Nausea presence: unspecified Vomiting type: unspecified Qualified Code(s): R11.10 - Vomiting, unspecified (4) Nausea & vomiting Vomiting type: unspecified Qualified Code(s): R11.2 - Nausea with vomiting, unspecified (5) Kidney stone complicating Trimester: third trimester Qualified Code(s): O26.833 - related renal disease, third trimester; N20.0 - Calculus of kidney
--- NOTE | 2023-10-23 14:38 | Ultrasound Report ---
US OB limited CLINICAL HISTORY: POP, evaluate growth COMPARISON STUDY: Obstetrical ultrasound 10/23/2023. FINDINGS: Transabdominal scanning of the fetus was performed with sales utility representative images submitted. A full anatomic survey was not performed for the study. heart rate is 144 BPM. There is an anterior placenta. No evidence for subchorionic hematoma. Normal amniotic fluid volume as described o n the prior study. The average ultrasound age based on the biparietal diameter, head circumference, a bdominal circumference, and femur length is approximately 31 weeks and 4 days +/- 2 week and 1 day. E stimated weight is 4 pounds and 2 ounces +/- 10 ounces. IMPRESSION: Single viable 31 week and 4 day intrauterine gestation with a heart rate of 144 BP M. ACT 112: Negative or not required by law. Electronically signed by: Triston Castillo M.D. 10/23/2023 2:37 PM
[2023-10-23] MEDS: ACETAMINOPHEN 1,000 MG/100 ML VIAL IV PRN ×2 (14:40→22:30)
[2023-10-23] MEDS ORDERED: oxyCODONE HCL IR 5 MG TAB (IMMEDIATE RELEASE) ONE (15:41)
[2023-10-23] MEDS: ONDANSETRON INJ 2 MG/ML 2 ML VIAL IV PRN ×2 (15:43→21:35)
[2023-10-23] MEDS ORDERED: oxyCODONE HCL IR 5 MG TAB (IMMEDIATE RELEASE) PO PRN (16:08)
--- NOTE | 2023-10-23 16:22 | Hospitalist Consultation ---
Date of Consultation October 23, 2023 Assessment & Plan (1) Nausea & vomiting: Recurrent nausea/vomiting, recurrent nephrolithiasis. No CANDY on admit. No hydro/obstruction. With multiple hospital admissions and associated kidney stones. W/ associated UTI, repeat UA pending Renal ultrasound shows no hydronephrosis, previously demonstrated stones on CT were not seen on this ultrasound patient has passed stones since time of comparison CT 09/25/2023. CT at that time showed 8 nonobstructing calculi of the left kidney up to 4 to 5 mm, 3 nonobstructing calculi of the right kidney at 4 mm. Flomax continued Patient is currently passing stones and feels like she is about to pass an additional stone in her left bladder. 2 stones passed, seen in cup and sent to lab at time of consultation assessment. Patient has received thiamine, Reglan, Pepcid, Benadryl, Zofran and did have transient improvement with this Continue Zofran 4 mg every 4 hours as needed Continue IV FM [id number] Continue [id number] /benadryl 12.5 mg IV every 6 hours second line Pepcid twice daily, convert to oral as tolerated Prior admission was evaluated for potential distended gallbladder, subsequent ultrasound was negative for cholecystitis. Transaminases and bilirubin remain normal this admission. NO additional testing indicated at this time. For ongoing stones and poor p.o. will convert oxycodone 510mg q4h as needed home dosing to low-dose equivalent with hydromorphone 2 mg TDD split as 0.25 mg every 4 hours. Convert back to PO once tolerating. Do not double up dosing (2) : Intrauterine -0-0-1 at 33 weeks Obstetric ultrasound: Viable 31-week 4-day intrauterine gestation with heart rate of 144 estimated weight 4 pounds 2 ounces. Admitted to OB service Primary care per OB, tones/NST per OB (3) Kidney stones: As noted (4) UTI (urinary tract infection): UA infected versus contaminated appearing, patient with recently diagnosed UTI but with multiple normal tom. She is with symptoms due to associated stones. Keflex held, will continue ceftriaxone pending repeat UCx Afebrile, is not septic appearing, no leukocytosis (5) Acute dehydration: Fluids as noted, no CANDY present. Replete mag PO PRN. (6) Depression with anxiety: Depression/anxiety Takes BuSpar, is not been able to keep this down for 3 days. Resume when able to tolerate oral Declined psych consultation by primary service History of Present Illness Attending Physician: Jewel Mark MD History of Present Illness Rachel is a 28-year-old -0-0-1 at 33 weeks who presented for recurrent nausea and vomiting. Patient has had multiple hospital admissions and intermittent nausea/vomiting over the last 2 months associated with recurrent nephrolithiasis. She was last discharged 5 days ago, felt fine for about 24 hours and then had return of left flank pain and dysuria. She has passed 2 stones. She was given antibiotics for UTI however has not been able to keep these down due to nausea vomiting. Damaris is seen at the bedside. She reports that shortly after the ultrasound despite no stones being seen she passed 2 stones which were collected in the toilet. She had near complete pain relief to 0/10 improvement of nausea after antiemetics however has had increased spasms since then and feels that she is going to pass 1/3 stone which she can feel in her left lower abdomen/pelvis. Pain has increased back to an 8/10 and she continues to be nauseous and is unable to keep down food or pills. Denies fever, chills, sweats. No chest pain or chest pressure. She feels that since being on IV fluids she feels improved but also feels that she is peeing more and can tell the stones are moving/passing since starting fluids. She has not been able to keep down Flomax. No other concerns at time of bedside evaluation. Medical History: Reviewed Medications: Reviewed Surgical History: Reviewed Family history: Reviewed Allergies: Reviewed Social History: Reviewed Code Status: Full Allergies Allergy/AdvReac Type Severity Reaction Status Date / Time aluminum [From Drysol] Allergy Intermediate Hives Verified 10/15/23 18:01 Home Medications Medication Instructions Recorded Confirmed Type PNV 153-FA 400 mcg-om3 35 mg-dha 1 tab PO DAILY 08/17/23 10/23/23 History 25 mg-epa 5 mg-fish oil chew tablet ( Gummies) bupropion HCl 300 mg 24 hr tablet, 300 mg PO QAM 08/17/23 10/23/23 History extended release iron 18 mg tablet 18 mg PO BID 08/17/23 10/23/23 History metoprolol succinate 25 mg 12.5 mg PO QAM 08/17/23 10/23/23 History tablet,extended release 24 hr ondansetron HCl 8 mg tablet 8 mg PO Q8H PRN NAUSEA/VOMITING 08/17/23 10/23/23 History pyridoxine (vitamin B6) 100 mg 100 mg PO DAILY 08/17/23 10/23/23 History tablet (Vitamin B-6) trazodone 50 mg tablet 50 mg PO HS 08/17/23 10/23/23 History docusate sodium 100 mg capsule 100 mg PO BID PRN Constipation 09/25/23 10/23/23 History famotidine 20 mg tablet 20 mg PO QAM PRN acid reflux 09/25/23 10/23/23 History polyethylene glycol 3350 17 gram 17 g PO BID PRN Constipation 09/25/23 10/23/23 History oral powder packet (Miralax) magnesium oxide 400 mg (241.3 mg 400 mg PO BID #60 tabs 10/09/23 10/23/23 Rx magnesium) tablet tamsulosin 0.4 mg capsule 0.4 mg PO BID #20 caps 10/09/23 10/23/23 Rx oxycodone 5 mg tablet 5 - 10 mg PO Q4H PRN Pain 10/11/23 10/23/23 History metoclopramide HCl 10 mg tablet 10 mg PO Q6H 10 days #40 tabs 10/18/23 10/23/23 Rx (Reglan) ondansetron 8 mg disintegrating 8 mg PO Q8H #30 tabs 10/18/23 10/23/23 Rx tablet promethazine 25 mg rectal 25 mg [place] Q6H #40 ea 10/18/23 10/23/23 Rx suppository Patient History Medical History Nephrolithiasis and not yet delivered in third trimester History of nephrolithiasis Abdominal pain Right ovarian cyst Developmental dyslexia Depression with anxiety GERD (gastroesophageal reflux disease) Myofascial pain Chronic low back pain Herniated disc LUMBAR AND CERVICAL (FULL ROM) History of kidney stones Sacroiliac joint pain Anxiety Vitamin D deficiency HX, ? CURRENT STATUS Surgical History History of laparoscopy History of breast lump/mass excision (01/17/22) Excision of left breast mass. Dr. Jason 01/17/2022 S/P cystoscopy with ureteral stent placement 12/05/20 Dr. Lamont Ambrose- Cystoscopy, Left ureteroscopy, Laser lithotripsy, Stone basket extraction of stone, Left retrograde pyelogram, Left ureteral stent placement Nasal fracture Repair of nasal fracture Family History Mother No problems noted. Grandmother (Maternal) Lung cancer Oral cancer Other Cancer Hypertension Kidney stones Denies family history of Ovarian cancer Prostate cancer Heart disease Myocardial infarction Breast cancer Colorectal cancer Social History Smoking Status: Never smoker Tobacco Type: E-cigarettes / Vaping Second Hand Exposure: No; Do You Dip or Chew Tobacco: No; Hx Alcohol Use: No Hx Substance Use: No Preferred Language: Citizen Of [place] Communication Ability: Effective Visual Impairment: No Limitations Hearing Ability: Normal Building Cleaner Required: No Beliefs That Will Affect Care: None marital status: Single Current Living Situation: Family Current Living Situation Comment: boyfriend current occupational status: employed 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 NAD. Cooperative. Nontoxic-appearing HEENT: Atraumatic, normocephalic. Vision/hearing grossly intact Pulm: Symmetrical chest rise. No increased work of breathing. No respiratory distress. Cardiac: RRR, Radial pulses intact and symmetrical Abdominal: Left lower abdominal/inguinal tenderness to palpation, left CVA tenderness is present. No right-sided tenderness. Fundus consistent with 33- week . Results & Data Results & Data Vital Signs (Past 12 Hours) Vital Signs Temp Pulse Pulse Resp BP BP Pulse Ox 10/23/23 13:11 36.9 C 84 18 128/81 100 10/23/23 12:20 36.8 C 111 H 18 120/77 98 10/23/23 10:00 87 18 119/89 98 10/23/23 09:51 98 10/23/23 07:43 36.6 C 134 H 18 130/101 H 98 O2 Del Method 10/23/23 13:11 Room Air 10/23/23 12:20 Room Air 10/23/23 10:00 Room Air 10/23/23 09:51 Room Air 10/23/23 07:43 Room Air PG Care Time/CCT Total # of Minutes Spent Total Time Spent with Patient: Total time spent is greater than 50% in coordination of care (as documented) at patient's floor/unit and/or counseling patient: Coding Level of Care Code 62089 IN/OBS CONSULT LVL 3,45M Diagnoses Nausea and vomiting, unspecified vomiting type R11.2 Vomiting type: unspecified Z34.90 Weeks of gestation: unspecified Kidney stones N20.0 UTI (urinary tract infection) N39.0 Acute dehydration E86.0 Depression with anxiety F41.8 (1) Nausea & vomiting Vomiting type: unspecified Qualified Code(s): R11.2 - Nausea with vomiting, unspecified (2) Weeks of gestation: unspecified Qualified Code(s): Z34.90 - Encounter for supervision of normal , unspecified, unspecified trimester
[2023-10-23] MEDS: HYDROmorphone INJ 0.5 MG/0.5 ML SYR IV PRN ×2 (17:25→21:35)
[2023-10-23] MEDS: traZODone HCL 50 MG TAB PO SCH (21:35)
[2023-10-23] MEDS: MAGNESIUM OXIDE 400 MG TAB PO SCH (21:35)
[2023-10-23] MEDS: TAMSULOSIN HCL 0.4 MG CAP PO SCH (21:35)
[2023-10-23] MEDS: LACTATED RINGER'S 1,000 ML IV PRN (22:28)
[2023-10-24] MEDS: HYDROmorphone INJ 0.5 MG/0.5 ML SYR IV PRN ×3 (01:41→10:47)
[2023-10-24] MEDS: LACTATED RINGER'S 1,000 ML IV PRN ×3 (04:00→23:22)
[2023-10-24] MEDS: ONDANSETRON INJ 2 MG/ML 2 ML VIAL IV PRN ×2 (04:13→10:09)
[2023-10-24] MEDS: ACETAMINOPHEN 1,000 MG/100 ML VIAL IV PRN (06:32)
--- NOTE | 2023-10-24 09:21 | Progress Note ---
Date of Service October 24, 2023 Assessment & Plan Admission and Anticipated Discharge Date Admission Date: October 23, 2023 Subjective doing OK. passed another stone. still c/o pain in left flank. unable to keep solids down. baby moving well. Review of Systems Review of Systems: All systems reviewed & are unremarkable except as noted in HPI & below Physical Exam Constitutional: WD/WN, vitals as above Gastrointestinal (Abdomen): Inspection/Auscultation: abdomen normal to inspection some pain in L CVA. Musculoskeletal: Extremities: extremities normal to inspection Skin: no rashes, warm and dry Neurologic: patellar DTR's 2+ bilat, sensation intact Psychiatric: A+Ox3, euthymic affect Results & Data Vital Signs (Past 12 Hours) Vital Signs Temp Pulse Resp BP Pulse Ox O2 Del Method 10/24/23 03:56 36.5 C 74 18 112/77 100 Room Air 10/23/23 22:45 36.4 C L 87 18 120/75 97 Room Air Laboratory Results 10/23/23 10/23/23 07:50 Unknown WBC 9.36 RBC 4.69 Hgb 13.5 Hct 41.0 MCV 87.4 MCH 28.8 MCHC 32.9 RDW Std Deviation 42.5 RDW Coeff of [place] 13.2 Plt Count 295 MPV 10.4 Immature Gran % (Auto) 0.3 Neut % (Auto) 74.5 Lymph % (Auto) 15.4 [place] % (Auto) 9.6 Eos % (Auto) 0.0 Baso % (Auto) 0.2 Neut # (Auto) 6.97 H Lymph # (Auto) 1.44 [place] # (Auto) 0.90 H Eos # (Auto) 0.00 Baso # (Auto) 0.02 Immature Gran # (Auto) 0.03 Sodium 134 L Potassium 4.3 Chloride 98 Carbon Dioxide 25 Anion Gap 11 BUN 8 Creatinine 0.76 Est Cr Clr Drug Dosing 111.0 Est GFR ( Amer) 122.9 Est GFR (Non-Af Amer) 106.0 BUN/Creatinine Ratio 10.5 Glucose 96 Calcium 9.3 Phosphorus 2.9 Magnesium 1.7 Total Bilirubin 0.6 AST 19 ALT 20 Alkaline Phosphatase 106 H Total Protein 7.3 Albumin 3.7 Globulin 3.6 Albumin/Globulin Ratio 1.0 Urine Color Dark Yellow Urine Appearance Cloudy A Urine pH 7.0 Ur Specific [place] 1.021 Urine Protein 1+ H Urine Glucose (UA) Negative Urine Ketones 4+ H Urine Blood 3+ H Urine Nitrite Negative Urine Bilirubin 1+ H Urine Urobilinogen Negative Ur Leukocyte Esterase 2+ H Urine WBC (Auto) >30 H Urine RBC (Auto) >30 H U Hyaline Cast (Auto) 5-10 H U Epithel Cells (Auto) >30 H Urine Bacteria (Auto) 1+ H
[2023-10-24] MEDS: METOPROLOL SUCC 25MG EXT REL TAB PO SCH (09:59)
[2023-10-24] MEDS: FERROUS SULFATE 325 MG TAB PO SCH (09:59)
[2023-10-24] MEDS: MAGNESIUM OXIDE 400 MG TAB PO SCH ×2 (09:59→20:04)
[2023-10-24] MEDS: buPROPion XL 300 MG TABCR PO SCH (09:59)
[2023-10-24] MEDS: PRENATAL VITAMIN 1 TAB PO SCH (10:03)
[2023-10-24] MEDS: PYRIDOXINE HCL 50 MG TAB PO SCH (10:03)
[2023-10-24] MEDS: TAMSULOSIN HCL 0.4 MG CAP PO SCH ×2 (10:04→20:04)
[2023-10-24] MEDS: cefTRIAXone SODIUM 1,000 MG in DEXTROSE 5 % MINI-B 50 ML IV SCH (10:08)
[2023-10-24] MEDS ORDERED: oxyCODONE HCL IR 5 MG TAB (IMMEDIATE RELEASE) PO PRN (13:13)
--- NOTE | 2023-10-24 13:22 | Hospitalist Progress Note ---
Date of Service October 24, 2023 Assessment & Plan (1) Nausea & vomiting: Plan: Recurrent nausea/vomiting, recurrent nephrolithiasis. No CANDY on admit. Renal US w/o hydro or obstruction, prior hospitalizations w/ multiple stones Patient is currently passing stones and feels like she is about to pass an additional stone in her left bladder. 2 stones passed, seen in cup and sent to lab at time of consultation assessment. Prior admission was evaluated for potential distended gallbladder, subsequent ultrasound was negative for cholecystitis. Transaminases and bilirubin remain normal this admission. NO additional testing indicated at this time. For ongoing stones and poor p.o. will convert oxycodone 510mg q4h as needed home dosing to low-dose equivalent with hydromorphone 2 mg TDD split as 0.25 mg every 4 hours. Convert back to PO once tolerating. Do not double up dosing /10 Stable, seen after lunch and tolerating clears without further vomiting Pepcid BID, convert to PO as able. Antiemetics prn IV Ceftriaxone for urine coverage, urine cx pending. No leukocytosis on admission. Afebrile at present. Flomax continued BID (reported initially declined, now taking it) IVF continued for maintenance, working on PO intake Straining urine Ambulation encouraged, colace BID added. On daily iron, suspect contributing to constipation Pain control * Dilaudid 0.25mg IV wearing off quickly, discussed PO for longer lasting control. RN messaged primary --ok to switch back to PO pain control, ordered 5-10mg oxycodone as needed. Continued inpatient stay (2) : Plan: Intrauterine , G3T2-6-2-6 at 33 wks. OB US viable 31wk 4 day intrauterine gestation, HR 144lb, weight 4lb 2oz Under [employer] primary service, tones/NST per OB (3) Kidney stones: Plan: As noted above, continues to pass stones. IVF/abx/antiemetics as needed (4) UTI (urinary tract infection): Plan: UA infected versus contaminated appearing, patient with recently diagnosed UTI but with multiple normal tom. She is with symptoms due to associated stones however cannot r/o stone as being nidus for ongoing issues? Keflex held, continues on ceftriaxone , urine cx pending Does not appear septic appearing, no leukocytosis on admission. Remains afebrile F/u urine cx (5) Acute dehydration: Plan: Fluids as noted, no CANDY present. Replete mag PO PRN and checking mag w/ AM labs given prior lows (6) Depression with anxiety: Plan: Depression/anxiety Takes BuSpar, is not been able to keep this down for 3 days but appears stable at present Continues on wellbutrin 300mg daily Declined psych consultation by primary service Plan continued inpatient stay switched pain meds to PO oxycodone , bowel regimen added. f/u urine cx and remains on IV ceftriaxone for now per primary service hospitalist service will follow along. please call with any questions/concerns Admission and Anticipated Discharge Date Admission Date: October 23, 2023 Supervising Physician Co-Signing Physician Notes The patient was not seen by me. The chart was reviewed. Case discussed with LION Pineda. Agree with assessment and plan Subjective Eval this afternoon, sitting up in chair attempting to get comfortable. Passed additional stone overnight to this morning, in bathroom/in cup. L flank/suprapubic pain but does have some CVA tenderness. Reports tolerating oral/no further vomiting but hadn't been eating much since dc last time with regards to real food. Discussed boost. She had been taking some tea yesterday but working on water with crystal light. Remains on IVF. Discussed transition to oral for longer lasting pain control, ok'd w/ primary team. Will dc IV dilaudid for now/monitor response to PO pain control. She had not needed the oxycodone or the flomax at home as didn't want to pass stone/go through the pain. Remains on IV abx, urine culture pending. Also no BM in several days, possible 3. Discussed increased. Ambulation to be increased as well to assist with bowels. Questions/concerns addressed at this time. Physical Exam 2 Physical Exam: 28yo female sitting on recliner chair, N AD but mildly uncomfortable appearing head atraumatic, normocephalic, mm slightly dry (improved from last time I had her), trachea midline resp: even/unlabored, no w/c/r, on room air cv; rrr, no significant mrg, no pitting edema/calf tenderness gi: +BS, slight distension, L groin discomfort/flank tenderness ?+L CVA tenderness msk/neuro: nonfocal, no slurred speech/facial droop, answering questions appropriately psych: aox3, cooperative with exam Results & Data Results & Data Vital Signs (Past 12 Hours) Vital Signs Temp Pulse Resp BP Pulse Ox O2 Del Method 10/24/23 09:10 36.5 C 84 18 130/86 100 Room Air 10/24/23 03:56 36.5 C 74 18 112/77 100 Room Air Laboratory Results 10/23/23 07:50 10/23/23 07:50 PG Care Time/CCT Total # of Minutes Spent Total Time Spent with Patient: Total time spent is greater than 50% in coordination of care (as documented) at patient's floor/unit and/or counseling patient: Coding Level of Care Code 49639 SUB INP/OBS CARE 3/50MIN Diagnoses Nausea and vomiting, unspecified vomiting type R11.2 Vomiting type: unspecified Z34.90 Weeks of gestation: unspecified Kidney stones N20.0 UTI (urinary tract infection) N39.0 Acute dehydration E86.0 Depression with anxiety F41.8 (1) Nausea & vomiting Vomiting type: unspecified Qualified Code(s): R11.2 - Nausea with vomiting, unspecified (2) Weeks of gestation: unspecified Qualified Code(s): Z34.90 - Encounter for supervision of normal , unspecified, unspecified trimester
[2023-10-24] MEDS: DOCUSATE SODIUM 100 MG CAP PO SCH ×2 (14:01→20:04)
[2023-10-24] MEDS: oxyCODONE HCL IR 5 MG TAB (IMMEDIATE RELEASE) PO PRN ×2 (14:34→20:12)
[2023-10-24] MEDS: traZODone HCL 50 MG TAB PO SCH (20:04)
[2023-10-25] MEDS: oxyCODONE HCL IR 5 MG TAB (IMMEDIATE RELEASE) PO PRN ×2 (01:05→05:32)
[2023-10-25 06:26] LABS: BUN Creatinine Ratio 11.3 (10-20); Calcium 8.3 mg/dl (8.6-10.3); Creatinine Clr Calc Pharmacy 159.2 ml/min; Est GFR (African American) 148.7 ml/min; Est GFR (Non-African American) 128.3 ml/min; Magnesium 1.6 mg/dl (1.7-2.4)
--- NOTE | 2023-10-25 07:59 | Hospitalist Progress Note ---
Date of Service October 25, 2023 Assessment & Plan (1) UTI (urinary tract infection): (2) Acute dehydration: (3) Nausea & vomiting: (4) Hypomagnesemia: (5) : (6) Kidney stones: Plan Recurrent nausea/vomiting, recurrent nephrolithiasis. No CANDY on admit. Renal US w/o hydro or obstruction, prior hospitalizations w/ multiple stones Patient is currently passing stones and feels like she is about to pass an additional stone in her left bladder. 2 stones passed, seen in cup and sent to lab at time of consultation assessment. Prior admission was evaluated for potential distended gallbladder, subsequent ultrasound was negative for cholecystitis. Transaminases and bilirubin remain normal this admission. NO additional testing indicated at this time. For ongoing stones and poor p.o. converted oxycodone 510mg q4h as needed home dosing to low-dose equivalent with hydromorphone 2 mg TDD split as 0.25 mg every 4 hours. Convert back to PO once tolerating. Do not double up dosing Pepcid BID, antiemetics prn 10/24 patient seen, switched back from IV to PO oxycodone 5-10mg after passing stone (larger in size, jagged/sharp edges, witnessed in bathroom) IVF continued. PO intake improved and diet advanced to regular without issue. 10/25 tolerating diet, pain controlled on oral/wanting to go home. Completed 3 days IV ceftriaxone, cx w/ lactobacillus. Mag 1.6 but wanting to go home/not have IV replacement. Instructed to increase home PO replacement to three times daily for next 2 days then back to usual regimen. To continue hydration at home, flomax, pain control. Hopefully will be able to manage conservatively to get her through current . Instructed to avoid all mountain dew/teas, heavy calcium containing foods given stone analysis in past. Continue bowel regimen recommended (2) : Intrauterine , B4P6-9-1-9 at 33 wks. OB US viable 31wk 4 day intrauterine gestation, HR 144lb, weight 4lb 2oz Under [employer] primary service, tones/NST per OB (3) Kidney stones: As noted above, continues to pass stones. IVF/abx/antiemetics as needed, improved and planning dc as above. (4) UTI (urinary tract infection): UA infected versus contaminated appearing, patient with recently diagnosed UTI but with multiple normal tom. She is with symptoms due to associated stones however cannot r/o stone as being nidus for ongoing issues? Keflex held on admission, given 3 doses IV rocephin and lactobacillus on urine cx. No abx planned at dc No leukocytosis or fevers inpatient (5) Acute dehydration: Fluids as noted, no CANDY present. Replete mag PO as above. Encouraged increased PO intake at dc to maintain hydration/avoidance of natural diuretics like iced tea (6) Depression with anxiety: Depression/anxiety Takes BuSpar, is not been able to keep this down for 3 days but appears stable at present Continues on wellbutrin 300mg daily Declined psych consultation by primary service Plan planning for discharge home today per primary service. please call with any questions/concerns Admission and Anticipated Discharge Date Admission Date: October 23, 2023 Supervising Physician Co-Signing Physician Notes The patient was not seen by me. The chart was reviewed. Case discussed with LION Pineda. Agree with assessment and plan Subjective eval this morning, tolerating advancement of diet and no nausea/vomiting reported. pain controlled with oral medications and wanting to go home. abx w/ Ceftriaxone x 3 days provided while inpatient. Questions/concerns addressed at this time. Physical Exam Physical Exam: 28yo female sitting on recliner chair, N AD but mildly uncomfortable appearing head atraumatic, normocephalic, mm slightly dry (improved from last time I had her), trachea midline resp: even/unlabored, no w/c/r, on room air cv; rrr, no significant mrg, no pitting edema/calf tenderness gi: +BS, slight distension, L groin discomfort/flank tenderness ?+L CVA tenderness msk/neuro: nonfocal, no slurred speech/facial droop, answering questions appropriately psych: aox3, cooperative with exam Results & Data Results & Data Vital Signs (Past 12 Hours) Vital Signs Temp Pulse Pulse Resp BP Pulse Ox O2 Del Method 10/25/23 05:00 106 H 18 129/83 99 Room Air 10/24/23 23:26 36.8 C 92 H 18 117/69 97 Room Air 10/24/23 20:05 Room Air 10/24/23 20:05 36.8 C 100 H 115 H 20 112/74 97 Room Air Laboratory Results 10/25/23 Range/Units 05:32 Sodium 137 (136-145) mmol/L Potassium 4.0 (3.5-5.1) mmol/L Chloride 106 (98-107) mmol/L Carbon Dioxide 25 (21-32) mmol/L Anion Gap 6 (3-11) BUN 6 (6-23) mg/dl Creatinine 0.53 L (0.6-1.2) mg/dl Est Cr Clr Drug Dosing 159.2 ml/min Est GFR ( Amer) 148.7 ml/min Est GFR (Non-Af Amer) 128.3 ml/min BUN/Creatinine Ratio 11.3 (10-20) Glucose 77 (70-99(Fasting)) mg/dl Calcium 8.3 L (8.6-10.3) mg/dl Magnesium 1.6 L (1.7-2.4) mg/dl PG Care Time/CCT Total # of Minutes Spent Total Time Spent with Patient: Total time spent is greater than 50% in coordination of care (as documented) at patient's floor/unit and/or counseling patient: Coding Level of Care Code 21504 SUB INP/OBS CARE 235MIN Diagnoses UTI (urinary tract infection) N39.0 Acute dehydration E86.0 Nausea and vomiting, unspecified vomiting type R11.2 Vomiting type: unspecified Hypomagnesemia E83.42 Z34.90 Weeks of gestation: unspecified Kidney stones N20.0 (3) Nausea & vomiting Vomiting type: unspecified Qualified Code(s): R11.2 - Nausea with vomiting, unspecified (5) Weeks of gestation: unspecified Qualified Code(s): Z34.90 - Encounter for supervision of normal , unspecified, unspecified trimester
[2023-10-25] MEDS: buPROPion XL 300 MG TABCR PO SCH (08:06)
[2023-10-25] MEDS: FERROUS SULFATE 325 MG TAB PO SCH (08:06)
[2023-10-25] MEDS: MAGNESIUM OXIDE 400 MG TAB PO SCH (08:07)
[2023-10-25] MEDS: DOCUSATE SODIUM 100 MG CAP PO SCH (08:07)
[2023-10-25] MEDS: PYRIDOXINE HCL 50 MG TAB PO SCH (08:07)
[2023-10-25] MEDS: METOPROLOL SUCC 25MG EXT REL TAB PO SCH (08:07)
[2023-10-25] MEDS: TAMSULOSIN HCL 0.4 MG CAP PO SCH (08:09)
[2023-10-25] MEDS: PRENATAL VITAMIN 1 TAB PO SCH (08:10)
--- NOTE | 2023-10-25 09:11 | Obstetrical Progress Note ---
Date of Service October 25, 2023 Assessment & Plan Admission and Anticipated Discharge Date Admission Date: October 23, 2023 Subjective Patient feels much better and desires to be discharged today. She had good apatite last night and had regular dinner and breakfast without N&V. No ctxs/ LOF/VB +FM She has passed 3 stones since she came to floor and her urine has sediments. Has been using Oxycodone every 4 hours for pain and asking for Rx. 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 NST 's have been reactive. Discussed d/c plan, when to call and f/u in office. Vital Signs Temp Pulse Pulse Resp BP Pulse Ox O2 Del Method 10/25/23 07:59 36.6 C 81 18 112/76 99 Room Air 10/25/23 05:00 106 H 18 129/83 99 Room Air 10/24/23 23:26 36.8 C 92 H 18 117/69 97 Room Air 10/24/23 20:05 Room Air 10/24/23 20:05 36.8 C 100 H 115 H 20 112/74 97 Room Air 10/24/23 16:55 36.5 C 100 H 18 125/84 98 Room Air 10/24/23 13:50 36.7 C 98 H 18 119/82 97 Room Air Intake and Output 10/24/23 10/25/23 10/25/23 22:59 06:59 14:59 Intake Total 666.667 / 1716.667 0 / 1716.667 Output Total 800 / 3200 1550 / 3200 Balance -133.333 / -1483.333 -1550 / -1483.333 Intake: IV 666.667 / 1716.667 0 / 1716.667 Lactated Ringer's 1,000 ml @ 666.667 / 1666.667 0 / 1666.667 125 mls/hr IV .Q8H PRN Rx#: [id number] Output: Urine 800 / 3200 1550 / 3200 Lab Results 10/23/23 10/23/23 10/25/23 Range/Units 07:50 Unknown 05:32 WBC 9.36 (4.8-10.8) K/ul RBC 4.69 (4.20-5.40) M/uL Hgb 13.5 (12.0-16.0) g/dl Hct 41.0 (37.0-47.0) % MCV 87.4 (80.0-100.0) fL MCH 28.8 (25.0-34.0) pg MCHC 32.9 (32.0-36.0) g/dL RDW Std Deviation 42.5 (36.4-46.3) fL RDW Coeff of Bal[place] 13.2 (11.5-14.5) % Plt Count 295 (130-400) K/uL MPV 10.4 (9.4-12.4) fL Immature Gran % (Auto) 0.3 % Neut % (Auto) 74.5 % Lymph % (Auto) 15.4 % [place] % (Auto) 9.6 % Eos % (Auto) 0.0 % Baso % (Auto) 0.2 % Neut # (Auto) 6.97 H (1.40-6.50) K/uL Lymph # (Auto) 1.44 (1.20-3.40) K/uL [place] # (Auto) 0.90 H (0.11-0.59) K/uL Eos # (Auto) 0.00 (0.00-0.50) K/uL Baso # (Auto) 0.02 (0.00-0.20) K/uL Immature Gran # (Auto) 0.03 (0.01-0.20) K/uL Sodium 134 L 137 (136-145) mmol/L Potassium 4.3 4.0 (3.5-5.1) mmol/L Chloride 98 106 (98-107) mmol/L Carbon Dioxide 25 25 (21-32) mmol/L Anion Gap 11 6 (3-11) BUN 8 6 (6-23) mg/dl Creatinine 0.76 0.53 L (0.6-1.2) mg/dl Est Cr Clr Drug Dosing 111.0 159.2 ml/min Est GFR ( Amer) 122.9 148.7 ml/min Est GFR (Non-Af Amer) 106.0 128.3 ml/min BUN/Creatinine Ratio 10.5 11.3 (10-20) Glucose 96 77 (70-99(Fasting)) mg/dl Calcium 9.3 8.3 L (8.6-10.3) mg/dl Phosphorus 2.9 (2.5-4.9) mg/dl Magnesium 1.7 1.6 L (1.7-2.4) mg/dl Total Bilirubin 0.6 (0.2-1.0) mg/dl AST 19 (13-39) U/L ALT 20 (7-52) U/L Alkaline Phosphatase 106 H (34-104) U/L Total Protein 7.3 (6.0-8.3) gm/dl Albumin 3.7 (3.4-5.0) gm/dl Globulin 3.6 (2.5-4.0) gm/dl Albumin/Globulin Ratio 1.0 (0.9-2) Urine Color Dark Yellow Urine Appearance Cloudy A (Clear) Urine pH 7.0 (4.5-7.5) Ur Specific [place] 1.021 (1.000-1.030) Urine Protein 1+ H (Negative) Urine Glucose (UA) Negative (Negative) Urine Ketones 4+ H (Negative) Urine Blood 3+ H (Negative) Urine Nitrite Negative (Negative) Urine Bilirubin 1+ H (Negative) Urine Urobilinogen Negative (Negative) Ur Leukocyte Esterase 2+ H (Negative) Urine WBC (Auto) >30 H (0-5) /hpf Urine RBC (Auto) >30 H (0-4) /hpf U Hyaline Cast (Auto) 5-10 H (0-5) /lpf U Epithel Cells (Auto) >30 H (0-5) /lpf Urine Bacteria (Auto) 1+ H (Negative) Urine culture pending. Results & Data Vital Signs (Past 12 Hours) Vital Signs Temp Pulse Resp BP Pulse Ox O2 Del Method 10/25/23 07:59 36.6 C 81 18 112/76 99 Room Air 10/25/23 05:00 106 H 18 129/83 99 Room Air 10/24/23 23:26 36.8 C 92 H 18 117/69 97 Room Air
[2023-10-25] MEDS ORDERED: MAGNESIUM SULFATE / D5W 1 GM/100 ML BAG IV ONE (09:31)
[2023-10-25] MEDS: cefTRIAXone SODIUM 1,000 MG in DEXTROSE 5 % MINI-B 50 ML IV SCH (09:39)
--- NOTE | 2023-10-25 10:01 | Discharge Summary ---
Date of Service October 25, 2023 Admission HPI Per Admitting Provider This is a 28-year-old female currently at 33 weeks that presents to the emergency department via private vehicle with complaints of "vomiting, left flank pain". The patient notes that she has been experiencing nausea and vomiting for the last 1-2 months when she also has been passing kidney stones. She was recently admitted to the hospital. She notes that she was discharged about 5 days ago. She felt fine for a day only. Then she notes return of nausea. She also notes left flank pain and some dysuria. She has been passing stones and has passed 2 of them now in BR. She notes that she is to be on antibiotics for UTI but secondary to the persistent nausea and vomiting and is not able to tolerate the oral antibiotics. She tried taking a dose last evening but unfortunately continued to vomit. She tried antiemetics, Zofran, Reglan Rectal Phenergan, this morning but unfortunately continued to vomit. Patient denies any fevers. She denies any central abdominal pain but does note some upper abdominal pain secondary to the vomiting. She was given IV Zofran, Reglan, Benadryl in ER and feels better now She has h/o Depression anxiety and takes Buspiron for it. She has not taken it for 3 days. She has a psychiatrist. Denies any drug use nor withdrawal. Offered her psych consult but declined politely. No ctxs/ LOF/ VB +FM's Discharge Data Consultations 10/23/23 10:47 ED Decision to Admit Stat 10/23/23 14:53 Consult Hospitalist Routine Hospital Course (1) UTI (urinary tract infection): (2) Ketonuria: (3) Electrolyte abnormality: (4) Kidney stones: (5) Nausea & vomiting: Patient is a 28-year-old -0-0-1 at 33 weeks and 4 days of gestation who presented to ER 2 days ago with nausea vomiting, dehydration, ketonuria. She has a history of kidney stones and has been passing multiple stones during this . She also complained of left flank pain and pain during urination when she was passing stones. She was admitted for IV fluid hydration and IV antiemetics. Hospitalist consultation was made and see their note for details. She has received bolus of IV fluids and then continued with 125 mL/h rate, received IV Zofran, Reglan, Benadryl and oxycodone for pain as needed. On day 1, she was still nauseous and was only tolerating clears. And since yesterday she tolerated regular dinner and breakfast this morning and she has good appetite. She denies nausea vomiting, abdominal pain, contractions, leakage of fluid, vaginal bleeding. She reports reports good movements. NSTs, monitoring have been reactive. She desired to go home on October 25, hospital day 3. Discharge instructions were given, prescriptions prescriptions were written for pain and nausea, she is to be seen in office next week. All questions were answered.
== END 2023-10-25 10:45 | disposition home health service (06) | DRG 832 ==
LOC: ED 07:33 → EDINP 10:55 → 4E1 12:49

== ENCOUNTER 2024-02-23 12:49 | Observation (INO) ==
--- NOTE | 2024-02-23 12:59 | Emergency Department Note ---
Impression & Plan Acute left flank pain, Nausea & vomiting, Nephrolithiasis ED Provider Note NAME: MARCELA MILIAN AGE: 28 SEX: F : 1995 ARRIVES VIA: Walk-In INFORMANT: Patient, ED PROVIDER(S): Blair Cortez MD CHIEF COMPLAINT: MEDICAL DECISION MAKING: Patient presented due to concern for left flank pain which the patient had been seen for yesterday. IV was established and blood work was obtained and the patient was ordered plain films and ultrasounds. Sedative pain medication patient was ordered the Valium Reglan Toradol and fluids. Patient was also ordered IV Benadryl. Blood work showed normal white count hemoglobin 11.3. The patient's kidney function is unremarkable. Lipase 334. Urinalysis negative for blood or infection negative UPT. Given the patient's elevated lipase CT abdomen pelvis was ordered. CT was negative. Pelvic ultrasound performed which was negative. Patient did have plain films completed which does show bilateral nephrolithiasis. Given the patient's repeated visits and inadequate pain control with associated nausea and vomiting I did Si speak with shirin the on-call hospital service Dr. Vieira and the patient was admitted to the medicine service. Discussion w/ other healthcare providers: Triston Travis PA-C and Dr. Vieira inpatient medicine service Prior /Outside records reviewed: None Differential diagnosis: Renal colic, UTI, pyelonephritis, appendicitis, diverticulitis, strain, sprain, fracture among others were considered. Diagnostics, as interpreted by me: ECG: None Cardiac monitoring: An order was placed for continuous cardiac monitoring. The monitor shows a rate of 85 with sinus rhythm. Patient was placed on pulse oximetry Medical decision rules: None Imaging studies: I informally interpreted the patient's chest and abdominal x-ray which does not show obvious pneumothorax or pneumoperitoneum with formal report to follow. Informally interpreted the patient's CT abdomen pelvis which does show kidney stones with formal report to follow. HPI: Patient presents due to concern for left-sided abdominal and flank pain that she describes as sharp and almost like razor blades. The patient states it begins in the left flank and radiates to the front of her left lower abdomen. The patient was seen yesterday for similar symptoms. The patient did go to work today and did not take any medications prior and had associated pain nausea and vomiting. Patient denies any blood in the urine or stool but is complaining of dysuria. Patient was feeling well last evening. Patient states that her pain is currently constant and 8 out of 10 in severity. PAST MEDICAL HISTORY: See Below PAST SURGICAL HISTORY: See Below SOCIAL HISTORY: See Below HOME MEDICATIONS: See Below ALLERGIES: See Below VITALS: See Below PHYSICAL EXAMINATION: GENERAL: NAD, non-toxic. EYE EXAM: Normal conjunctiva. PERRL, no anisocoria and EOM's grossly intact w/o pain. OROPHARYNX: Moist mucus membranes, grossly normal dentition. NECK: Trachea midline, no stridor. LUNGS: Clear to auscultation. Normal chest wall mechanics. HEART: NSR, no MRG. ABDOMEN: Abdomen soft, left lower abdominal pain without right-sided abdominal pain, negative obturators and psoas,, no masses, no rebound or guarding. BACK: Left-sided CVA TTP. SKIN: No rashes and no bruising. UPPER EXTREMITIES: Upper extremities are grossly normal. LOWER EXTREMITIES: Grossly normal, no edema. NEURO EXAM: A&O x3, cranial nerves II-XII grossly intact, normal speech, moves all 4 extremities. Past Med/Surg History Medical History Irregular uterine contractions and not yet delivered in third trimester History of nephrolithiasis Abdominal pain Right ovarian cyst Developmental dyslexia Depression with anxiety GERD (gastroesophageal reflux disease) Myofascial pain Chronic low back pain Herniated disc LUMBAR AND CERVICAL (FULL ROM) History of kidney stones Sacroiliac joint pain Nephrolithiasis Anxiety Vitamin D deficiency HX, ? CURRENT STATUS Surgical History H/O lithotripsy History of laparoscopy History of breast lump/mass excision (01/17/22) Excision of left breast mass. Dr. Jason 01/17/2022 S/P cystoscopy with ureteral stent placement 12/05/20 Dr. Lamont Ambrose- Cystoscopy, Left ureteroscopy, Laser lithotripsy, Stone basket extraction of stone, Left retrograde pyelogram, Left ureteral stent placement Nasal fracture Repair of nasal fracture Family History Mother No problems noted. 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 Beliefs That Will Affect Care: None marital status: Single Current Living Situation: Significant Other Current Living Situation Comment: Boyfriend and son, boyfriend's daughter current occupational status: employed 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 @ [employer] How many Children do You have: 1 Feels Safe at Home: Yes Childhood Exposure to Second-Hand Smoke: No Diet: regular during the past year weight has: increased > 10 lbs Physical Activity Frequency: Daily Seatbelt Use: always Sunscreen Use: Yes Assistive Devices: None Allergies Allergies Allergy/AdvReac Type Severity Reaction Status Date / Time aluminum [From Drysol] Allergy Intermediate Hives Verified 02/22/24 17:15 Home Meds Home Medications Medication Instructions Recorded Confirmed bupropion HCl 300 mg 24 hr tablet, 300 mg PO QAM 08/17/23 02/23/24 extended release trazodone 50 mg tablet 50 - 100 mg PO HS PRN Insomnia 08/17/23 02/23/24 famotidine 20 mg tablet 20 mg PO QAM PRN acid reflux 09/25/23 02/23/24 clonazepam 0.5 mg tablet 0.25 - 0.5 mg PO HS PRN 02/22/24 02/23/24 anxiety/insomnia Previous Rx's Medication Instructions Recorded amoxicillin 500 mg tablet 500 mg PO BID 7 days #14 tabs 02/18/24 metronidazole 500 mg tablet 500 mg PO BID 7 days #14 tabs 02/18/24 ondansetron HCl 4 mg tablet 4 mg PO TID PRN nausea and 02/22/24 vomiting 5 days #15 tabs oxycodone 5 mg tablet 5 mg PO Q8H PRN pain #6 tabs 02/22/24 Results & Data (ED) Vital Signs Vital Signs - 24 hr 02/23/24 12:51 02/23/24 13:03 02/23/24 15:27 Temperature 36.5 C Temperature Source Temporal Artery Scan Pulse Rate 85 Pulse Rate [Finger] 81 Respiratory Rate 18 16 Blood Pressure 138/76 Blood Pressure [Left Arm] 136/99 Blood Pressure Mean 96 Blood Pressure Mean [Left Arm] 111 Pulse Oximetry 98 97 100 Oxygen Delivery Method Room Air Room Air Room Air Sepsis Recent Fever Within 48 Hours No Sepsis New/Unexplained Change in Mental Status N/A Sepsis Action Taken by Nursing No Action Required Home Medications Current Medication List: was personally reviewed by me Laboratory Data Attestation: I reviewed the patient's lab results. 02/23/24 13:00 02/23/24 13:00 Lab Results 02/23/24 Range/Units 13:00 WBC 5.25 (4.8-10.8) K/ul RBC 4.02 L (4.20-5.40) M/uL Hgb 11.3 L (12.0-16.0) g/dl Hct 34.4 L (37.0-47.0) % MCV 85.6 (80.0-100.0) fL MCH 28.1 (25.0-34.0) pg MCHC 32.8 (32.0-36.0) g/dL RDW Std Deviation 44.4 (36.4-46.3) fL RDW Coeff of Baldo 14.1 (11.5-14.5) % Plt Count 192 (130-400) K/uL MPV 10.1 (9.4-12.4) fL Immature Gran % (Auto) 0.2 % Neut % (Auto) 48.4 % Lymph % (Auto) 39.0 % Nelson % (Auto) 11.6 % Eos % (Auto) 0.4 % Baso % (Auto) 0.4 % Neut # (Auto) 2.54 (1.40-6.50) K/uL Lymph # (Auto) 2.05 (1.20-3.40) K/uL Nelson # (Auto) 0.61 H (0.11-0.59) K/uL Eos # (Auto) 0.02 (0.00-0.50) K/uL Baso # (Auto) 0.02 (0.00-0.20) K/uL Immature Gran # (Auto) 0.01 (0.01-0.20) K/uL Sodium 137 (136-145) mmol/L Potassium 3.8 (3.5-5.1) mmol/L Chloride 106 (98-107) mmol/L Carbon Dioxide 23 (21-32) mmol/L Anion Gap 8 (3-11) BUN 13 (6-23) mg/dl Creatinine 0.76 (0.6-1.2) mg/dl Est Cr Clr Drug Dosing 109.7 ml/min Est GFR ( Amer) 122.9 ml/min Est GFR (Non-Af Amer) 106.0 ml/min BUN/Creatinine Ratio 17.1 (10-20) Glucose 93 (70-99(Fasting)) mg/dl Calcium 9.3 (8.6-10.3) mg/dl Total Bilirubin 0.3 (0.2-1.0) mg/dl AST 30 (13-39) U/L ALT 37 (7-52) U/L Alkaline Phosphatase 69 (34-104) U/L Total Protein 7.0 (6.0-8.3) gm/dl Albumin 4.2 (3.4-5.0) gm/dl Globulin 2.8 (2.5-4.0) gm/dl Albumin/Globulin Ratio 1.5 (0.9-2) Lipase 334 H (11-82) U/L Urine Color Yellow Urine Appearance Clear (Clear) Urine pH 6.5 (4.5-7.5) Ur Specific [place] 1.017 (1.000-1.030) Urine Protein Negative (Negative) Urine Glucose (UA) Negative (Negative) Urine Ketones Negative (Negative) Urine Blood Negative (Negative) Urine Nitrite Negative (Negative) Urine Bilirubin Negative (Negative) Urine Urobilinogen Negative (Negative) Ur Leukocyte Esterase Negative (Negative) Urine Test Negative (Negative) Administered Medications Acetaminophen (Acetaminophen 325 Mg Tab) 650 mg PO Q4H PRN PRN Reason: Fever/Mild Pain (Pain 1,2,3) Stop: 03/24/24 18:07 Last Admin: 02/23/24 18:26 Dose: 650 mg Documented By: ML Discontinued Medications Diazepam (Diazepam 5 Mg/Ml 10ml Vial) 5 mg IV NOW STA Stop: 02/23/24 13:04 Last Admin: 02/23/24 13:13 Dose: 5 mg Documented By: ACC Diphenhydramine HCl (Diphenhydramine 50 Mg/Ml Vial) 25 mg IV NOW STA Stop: 02/23/24 13:04 Last Admin: 02/23/24 13:13 Dose: 25 mg Documented By: ACC Sodium Chloride (Nss) 1,000 mls @ 999 mls/hr IV .Q1H1M STA Stop: 02/23/24 14:03 Last Infusion: 02/23/24 15:20 Dose: Infused Documented By: Admin: 02/23/24 13:14 Dose: 999 mls/hr Documented By: ACC Ioversol (Optiray 320 100ml) 91 ml IV ONCE ONE Stop: 02/23/24 14:32 Last Admin: 02/23/24 14:32 Dose: 91 ml Documented By: EDK Ketorolac Tromethamine (Ketorolac Tromethamine 15 Mg/Ml Vial) 10 mg IV NOW STA Stop: 02/23/24 13:04 Last Admin: 02/23/24 13:13 Dose: 10 mg Documented By: ACC Metoclopramide HCl (Metoclopramide Hcl Inj 5 Mg/Ml 2 Ml Vial) 10 mg IV NOW STA Stop: 02/23/24 13:04 Last Admin: 02/23/24 13:13 Dose: 10 mg Documented By: ACC Morphine Sulfate (Morphine Sulfate 4 Mg/Ml 1 Ml Carp\Vial) 4 mg IV NOW STA Stop: 02/23/24 14:03 Last Admin: 02/23/24 14:07 Dose: 4 mg Documented By: ACC Morphine Sulfate (Morphine Sulfate 4 Mg/Ml 1 Ml Carp\Vial) 4 mg IV NOW STA Stop: 02/23/24 16:18 Last Admin: 02/23/24 16:23 Dose: 4 mg Documented By: ACC Imaging Data Radiologist's Impression: Chest/Abdomen X-ray 02/23/24 13:04 XR abdomen 2V w PA chest CLINICAL HISTORY: L sided flank/ab pain TECHNIQUE: 2 views of the abdomen were obtained. A single view of the chest was obtained. Comparison: Comparison is made to abdomen radiograph 02/15/2024 FINDINGS: No lines and tubes are seen. The cardiomediastinal silhouette is normal. The lungs are clear. No evidence of pleural effusion or pneumothorax. Bilateral nephrolithiasis is seen. The osseous structures are grossly unremarkable. The bowel gas pattern is nonobstructive. A moderate amount of stool is noted within the large bowel. IMPRESSION: Bilateral nephrolithiasis is seen. No ureteral or pelvic stone. ACT 112: Negative or not required by law. Electronically signed by: Mati Sandoval M.D. 02/23/2024 3:00 PM Pelvis Ultrasound 02/23/24 13:04 US pelvic complete CLINICAL HISTORY: LL ab pain TECHNIQUE: Real-time sonographic images of the pelvic contents were obtained with transabdominal and transvaginal technique. Comparison: Comparison is made to pelvic ultrasound 01/05/[address] abdomen pelvis 02/23/2024 FINDINGS: The uterus measures 10.5 x 7.2 x 4.8 cm. The endometrial cavity echo stripe measures 0.7 cm in thickness. The uterus is normal in appearance. The right ovary measures 2.6 x 2.1 x 1.8 cm. The left ovary measures 2.8 x 2.5 x 1.7 cm. Normal appearance of the ovaries bilaterally. Doppler flow is seen bilaterally. There was small fluid near the left ovary. IMPRESSION: Normal transvaginal pelvic ultrasound. ACT 112: Negative or not required by law. Electronically signed by: Mati Sandoval M.D. 02/23/2024 3:50 PM Abdomen/Pelvis CT 02/23/24 14:02 CT abd pelvis IV con only CLINICAL HISTORY: L sided flank pain, n/v, lipase 334 TECHNIQUE: Helical axial images of the abdomen and pelvis were obtained and displayed. Automated dose lowering techniques and/or adjustment according to patient size were utilized for this exam. This exam was performed with intravenous contrast. CT DOSE: 1297.48 mGy.cm COMPARISON: Comparison is made to CT abdomen pelvis 02/22/2024 FINDINGS: Lower chest: No acute abnormality. Liver: Unremarkable. No focal lesions are seen. Gallbladder and biliary tree: The gallbladder wall is minimally prominent but not thickened. No intra- or extrahepatic biliary ductal dilation. Pancreas: Unremarkable, no focal lesions. Spleen: Unremarkable. Adrenals: Unremarkable. Kidneys and ureters: Nonobstructive nephrolithiasis is seen. Bladder: Unremarkable. Reproductive organs: Unremarkable. Bowel: The appendix is normal. Lymph nodes Retroperitoneal: Unremarkable. Pelvic: Unremarkable. Mesenteric: Unremarkable. Peritoneum: Normal. Vessels: Unremarkable. Abdominal wall: Unremarkable. Bones: Unremarkable. IMPRESSION: No acute abnormality, in particular no evidence of obstructive nephrolithiasis or CT evidence of pancreatitis. ACT 112: Negative or not required by law. Electronically signed by: Mati Sandoval M.D. 02/23/2024 2:52 PM Discharge Plan Visit Data Chief Complaint: Flank Pain Stated Complaint: LEFT FLANK/GROIN PAIN ED Provider: Blair Cortez Discharge Problem: Acute left flank pain, Nausea & vomiting, Nephrolithiasis Forms Stand Alone Forms: [facility] [employer] Prescriptions Prescriptions: No Action metronidazole 500 mg tablet 500 mg PO BID 7 Days Qty: 14 0RF amoxicillin 500 mg tablet 500 mg PO BID 7 Days Qty: 14 0RF trazodone 50 mg tablet 50 - 100 mg PO HS PRN (Reason: Insomnia) bupropion HCl 300 mg tablet extended release 24 hr 300 mg PO QAM famotidine 20 mg tablet 20 mg PO QAM PRN (Reason: acid reflux ) clonazepam 0.5 mg tablet 0.25 - 0.5 mg PO HS PRN (Reason: anxiety/insomnia) ondansetron HCl 4 mg tablet 4 mg PO TID PRN (Reason: nausea and vomiting) 5 Days Qty: 15 0RF oxycodone 5 mg tablet 5 mg PO Q8H PRN (Reason: pain) Qty: 6 0RF Referrals Referrals: Luisa Roldan MD [Primary Care Provider] - Discharge Problem: Nausea & vomiting Qualifiers: Vomiting type: unspecified Qualified Code(s): R11.2 - Nausea with vomiting, unspecified
[2024-02-23] MEDS: KETOROLAC TROMETHAMINE 15 MG/ML VIAL IV STA (13:13)
[2024-02-23] MEDS: diphenhydrAMINE 50 MG/ML VIAL IV STA (13:13)
[2024-02-23] MEDS: diazePAM 5 MG/ML 10ML VIAL IV STA (13:13)
[2024-02-23] MEDS: METOCLOPRAMIDE HCL INJ 5 MG/ML 2 ML VIAL IV STA (13:13)
[2024-02-23] MEDS: SODIUM CHLORIDE 0.9% 1,000 ML IV STA (13:14)
[2024-02-23 13:17] LABS: Appearance Urine Clear (Clear); Bilirubin Urine Negative (Negative); Blood Urine Negative (Negative); Color Urine Yellow; Glucose Urine UA Negative (Negative); Ketones Urine Negative (Negative); Leukocyte Esterase Urine Negative (Negative); Nitrite Urine Negative (Negative); Protein Urine Negative (Negative); Specific Gravity Urine 1.017 (1.000-1.030); Urobilinogen Urine Negative (Negative); pH Urine 6.5 (4.5-7.5)
[2024-02-23 13:30] LABS: Basophils # (auto) 0.02 K/uL (0.00-0.20); Basophils % (auto) 0.4 %; Eosinophils # (auto) 0.02 K/uL (0.00-0.50); Eosinophils % (auto) 0.4 %; Hematocrit (blood only) 34.4 % (37.0-47.0); Hemoglobin 11.3 g/dl (12.0-16.0); Immature Granulocytes # (auto) 0.01 K/uL (0.01-0.20); Immature Granulocytes % (auto) 0.2 %; Lymphocytes # (auto) 2.05 K/uL (1.20-3.40); Mean Corpuscular Hemoglobin 28.1 pg (25.0-34.0); Mean Corpuscular Hgb Conc 32.8 g/dL (32.0-36.0); Mean Corpuscular Volume 85.6 fL (80.0-100.0); Mean Platelet Volume 10.1 fL (9.4-12.4); Monocytes # (auto) 0.61 K/uL (0.11-0.59); Monocytes % (auto) 11.6 %; Neutrophils # (auto) 2.54 K/uL (1.40-6.50); Neutrophils % (auto) 48.4 %; Platelet Count 192 K/uL (130-400); RDW Coefficient of Variation 14.1 % (11.5-14.5); RDW Standard Deviation 44.4 fL (36.4-46.3); Red Blood Count 4.02 M/uL (4.20-5.40); White Blood Count 5.25 K/ul (4.8-10.8)
[2024-02-23 13:34] LABS: Pregnancy Test, Urine Negative (Negative)
[2024-02-23 13:42] LABS: Albumin Globulin Ratio 1.5 (0.9-2); Albumin Level 4.2 gm/dl (3.4-5.0); BUN Creatinine Ratio 17.1 (10-20); Bilirubin,Total 0.3 mg/dl (0.2-1.0); Calcium 9.3 mg/dl (8.6-10.3); Creatinine Clr Calc Pharmacy 109.7 ml/min; Est GFR (African American) 122.9 ml/min; Globulin 2.8 gm/dl (2.5-4.0); Potassium 3.8 mmol/L (3.5-5.1)
[2024-02-23] MEDS: MoRPHine SULFATE 4 MG/ML 1 ML CARP\\VIAL IV STA ×2 (14:07→16:23)
[2024-02-23] MEDS: OPTIRAY 320 100ml IV ONE (14:32)
--- NOTE | 2024-02-23 14:55 | CT Scan Report ---
CT abd pelvis IV con only CLINICAL HISTORY: L sided flank pain, n/v, lipase 334 TECHNIQUE: Helical axial images of the abdomen and pelvis were obtained and displayed. Automated dose lowering techniques and/or adjustment according to patient size were utilized for this exam. This e xam was performed with intravenous contrast. CT DOSE: 1297.48 mGy.cm COMPARISON: Comparison is made to CT abdomen pelvis 02/22/2024 FINDINGS: Lower chest: No acute abnormality. Liver: Unremarkable. No focal lesions are seen. Gallbladder and biliary tree: The gallbladder wall is minimally prominent but not thickened. No intra - or extrahepatic biliary ductal dilation. Pancreas: Unremarkable, no focal lesions. Spleen: Unremarkable. Adrenals: Unremarkable. Kidneys and ureters: Nonobstructive nephrolithiasis is seen. Bladder: Unremarkable. Reproductive organs: Unremarkable. Bowel: The appendix is normal. Lymph nodes Retroperitoneal: Unremarkable. Pelvic: Unremarkable. Mesenteric: Unremarkable. Peritoneum: Normal. Vessels: Unremarkable. Abdominal wall: Unremarkable. Bones: Unremarkable. IMPRESSION: No acute abnormality, in particular no evidence of obstructive nephrolithiasis or CT evidence of panc reatitis. ACT 112: Negative or not required by law. Electronically signed by: Mati Sandoval M.D. 02/23/2024 2:52 PM
--- NOTE | 2024-02-23 15:01 | XRay Report ---
XR abdomen 2V w PA chest CLINICAL HISTORY: L sided flank/ab pain TECHNIQUE: 2 views of the abdomen were obtained. A single view of the chest was obtained. Comparison: Comparison is made to abdomen radiograph 02/15/2024 FINDINGS: No lines and tubes are seen. The cardiomediastinal silhouette is normal. The lungs are clear. No evid ence of pleural effusion or pneumothorax. Bilateral nephrolithiasis is seen. The osseous structures are grossly unremarkable. The bowel gas pat tern is nonobstructive. A moderate amount of stool is noted within the large bowel. IMPRESSION: Bilateral nephrolithiasis is seen. No ureteral or pelvic stone. ACT 112: Negative or not required by law. Electronically signed by: Mati Sandoval M.D. 02/23/2024 3:00 PM
--- NOTE | 2024-02-23 15:52 | Ultrasound Report ---
US pelvic complete CLINICAL HISTORY: LL ab pain TECHNIQUE: Real-time sonographic images of the pelvic contents were obtained with transabdominal and transvaginal technique. Comparison: Comparison is made to pelvic ultrasound 01/05/[address] abdomen pelvis 02/23/2024 FINDINGS: The uterus measures 10.5 x 7.2 x 4.8 cm. The endometrial cavity echo stripe measures 0.7 cm in thickn ess. The uterus is normal in appearance. The right ovary measures 2.6 x 2.1 x 1.8 cm. The left ovary measures 2.8 x 2.5 x 1.7 cm. Normal appea mayra of the ovaries bilaterally. Doppler flow is seen bilaterally. There was small fluid near the left ovary. IMPRESSION: Normal transvaginal pelvic ultrasound. ACT 112: Negative or not required by law. Electronically signed by: Mati Sandoval M.D. 02/23/2024 3:50 PM
--- NOTE | 2024-02-23 17:30 | History & Physical Report ---
Date of Service February 23, 2024 Assessment & Plan (1) Acute left flank pain: Plan: Intermittent left flank and groin pain x 2 weeks with acute worsening on 02/21 A/P CT without obstructive nephrolithiasis or pancreatitis Mild leukopenia at 4.02; afebrile Elevated lipase at 334 Leading DDx: Renal colic, kidney stone, pancreatitis, or pain associate with UTI, among other etiologies Multimodal pain regimen as follows: Acetaminophen p.o. (1st line) Toradol IV q6h (2nd line) Oxycodone p.o. q8h (3rd line) A.m. CBC, BMP, mag (2) Nausea & vomiting: Plan: Zofran or Compazine as needed for nausea/vomiting (3) UTI (urinary tract infection): Plan: Urine culture on 02/15/2024 showed group B beta strep and Gardnerella, but no sensitivities to follow Patient was treated with metronidazole and amoxicillin x 7 days outpatient Will defer further antibiotics at this time Plan Disposition: Obs - Admit to [facility] Full code Low-fat diet, as tolerated in the setting of pancreatitis r/o VTE PPx: Lovenox 40mg SQ q24h History of Present Illness Chief Complaint: Left flank pain Primary Care Provider: Luisa Roldan MD Damaris is a 28-year-old female with PMH of anxiety, depression, GERD, hypothyroidism, nephrolithiasis, and stress urinary incontinence. She presented for intermittent left-sided flank and groin pain x 2 weeks, with an acute exacerbation of symptoms on 02/21. Patient reports she was nauseous and vomiting all day on 02/21. She also endorses burning with urination that feels like "razor blades" when she goes to the bathroom. She does have history of complicated kidney stones during her most recent , and notes that she currently feels as if she is passing a stone. Patient was recently placed on amoxicillin and Flagyl BID x 7 days outpatient for UTI, but this did not alleviate her symptoms. Patient did note chills last night, but did not take her temperature at home. She has been taking Tylenol and ibuprofen at home for the pain, as well as 1 tablet of oxycodone 5 mg last night that she received after being sent home from the ED. These medications help a little bit, but did not keep the pain from returning. She describes the pain as a "sharp, stabbing" pain in her left flank that radiates down into her groin. No radiation to the lower left back. The pain is constant, and only alleviated with some pain medication. She also notes that bending over and putting pressure on the left flank does help sometimes. He rates the pain 7/10 at present after receiving pain medicine in the ED; 10/10 at worst. LMP was 3 weeks ago. No history of pancreatitis to her knowledge. Patient has not drank alcohol in the past 2 weeks, and denies heavy alcohol use recently; she will occasionally have an alcoholic drink every other Sunday. She denies smoking, tobacco use, and recreational drug use. Patient has been tolerating fluids and solids since last night. Patient's vitals are stable at time of admission. ED course: NSS 1000 mL IV Reglan 10 mg IV Toradol 10 mg IV Benadryl 25 mg IV Valium 5 mg IV Morphine 4 mg IV x 2 ROS: Patient endorses chills, CABALLERO (chronic, but more frequently in the past 2 weeks), body aches, nausea, vomiting (acidic), burning with urination, dysuria, and sharp stabbing pain in her left flank. Patient denies fever, sweating, dizziness, lightheadedness, chest pain, chest palpitations, SOB, cough, abdominal pain, diarrhea, hematemesis, blood in the urine/stool, or numbness/tingling/pain in the arms or legs. Allergies Allergy/AdvReac Type Severity Reaction Status Date / Time aluminum [From Drysol] Allergy Intermediate Hives Verified 02/22/24 17:15 Home Medications Medication Instructions Recorded Confirmed Type bupropion HCl 300 mg 24 hr tablet, 300 mg PO QAM 08/17/23 02/23/24 History extended release trazodone 50 mg tablet 50 - 100 mg PO HS PRN Insomnia 08/17/23 02/23/24 History famotidine 20 mg tablet 20 mg PO QAM PRN acid reflux 09/25/23 02/23/24 History amoxicillin 500 mg tablet 500 mg PO BID 7 days #14 tabs 02/18/24 02/23/24 Rx metronidazole 500 mg tablet 500 mg PO BID 7 days #14 tabs 02/18/24 02/23/24 Rx clonazepam 0.5 mg tablet 0.25 - 0.5 mg PO HS PRN 02/22/24 02/23/24 History anxiety/insomnia ondansetron HCl 4 mg tablet 4 mg PO TID PRN nausea and 02/22/24 02/23/24 Rx vomiting 5 days #15 tabs oxycodone 5 mg tablet 5 mg PO Q8H PRN pain #6 tabs 02/22/24 02/23/24 Rx Past Med/Surg History Medical History Irregular uterine contractions and not yet delivered in third trimester History of nephrolithiasis Abdominal pain Right ovarian cyst Developmental dyslexia Depression with anxiety GERD (gastroesophageal reflux disease) Myofascial pain Chronic low back pain Herniated disc LUMBAR AND CERVICAL (FULL ROM) History of kidney stones Sacroiliac joint pain Nephrolithiasis Anxiety Vitamin D deficiency HX, ? CURRENT STATUS Surgical History H/O lithotripsy History of laparoscopy History of breast lump/mass excision (01/17/22) Excision of left breast mass. Dr. Jason 01/17/2022 S/P cystoscopy with ureteral stent placement 12/05/20 Dr. Lamont Ambrose- Cystoscopy, Left ureteroscopy, Laser lithotripsy, Stone basket extraction of stone, Left retrograde pyelogram, Left ureteral stent placement Nasal fracture Repair of nasal fracture Family History Mother No problems noted. Grandmother (Maternal) Lung cancer Oral cancer Other Cancer Hypertension Kidney stones Denies family history of Ovarian cancer Prostate cancer Heart disease Myocardial infarction Breast cancer Colorectal cancer Social History Smoking Status: Never smoker Tobacco Type: E-cigarettes / Vaping Second Hand Exposure: No; Hx Alcohol Use: No Hx Substance Use: No Preferred Language: Thai Communication Ability: Effective Visual Impairment: No Limitations Hearing Ability: Normal Marketing Information Coordinator Required: No Beliefs That Will Affect Care: None marital status: Single Current Living Situation: Significant Other Current Living Situation Comment: Boyfriend and son, boyfriend's daughter current occupational status: employed 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 @ [employer] How many Children do You have: 1 Feels Safe at Home: Yes Childhood Exposure to Second-Hand Smoke: No Diet: regular during the past year weight has: increased > 10 lbs Physical Activity Frequency: Daily Seatbelt Use: always Sunscreen Use: Yes Assistive Devices: None Review of Systems Review of Systems: See HPI above Physical Exam Physical Exam: General: no acute distress; pleasant affect; non-toxic appearing; cooperative; SpO2 100% on RA HEENT: normocephalic, atraumatic; no scleral icterus; PERRLA; moist mucus membrane; vision and hearing grossly intact Neck: supple; trachea midline Skin: warm, dry without signs of tenting; no cyanosis; no rashes, bruising, lesions, or erythema noted CV: chest wall NTP; RRR; S1/S2 normal; no murmurs/rubs/gallops; pulses intact a nd symmetric at radial, DP, and PT Lungs: no acute respiratory distress; symmetrical chest wall expansion; clear breath sounds across all lung good w/o adventitious sounds; no wheezing ABD: Soft, NTP; BS present; no rebound/guarding; no distention; left-sided CVA tenderness; no signs of bruising, rashes, or active bleeding on the flanks, abdomen, or back MSK: no tics or fasciculations; no edema noted in the LEs b/l, nonerythematous Neuro: A&Ox3; normal mood and affect; fluent speech; no focal deficits; sensation grossly intact in the LEs b/l Results & Data Results & Data Vital Signs (Past 12 Hours) Vital Signs Temp Pulse Pulse Resp BP BP Pulse Ox 02/23/24 15:27 81 16 136/99 100 02/23/24 13:03 97 02/23/24 12:51 36.5 C 85 18 138/76 98 O2 Del Method 02/23/24 15:27 Room Air 02/23/24 13:03 Room Air 02/23/24 12:51 Room Air Laboratory Results Abnormal lab results 02/23/24 Range/Units 13:00 RBC 4.02 L (4.20-5.40) M/uL Hgb 11.3 L (12.0-16.0) g/dl Hct 34.4 L (37.0-47.0) % Clark # (Auto) 0.61 H (0.11-0.59) K/uL Lipase 334 H (11-82) U/L Diagnostic Findings Chest/Abdomen X-ray 02/23/24 13:04 XR abdomen 2V w PA chest CLINICAL HISTORY: L sided flank/ab pain TECHNIQUE: 2 views of the abdomen were obtained. A single view of the chest was obtained. Comparison: Comparison is made to abdomen radiograph 02/15/2024 FINDINGS: No lines and tubes are seen. The cardiomediastinal silhouette is normal. The lungs are clear. No evidence of pleural effusion or pneumothorax. Bilateral nephrolithiasis is seen. The osseous structures are grossly unremarkable. The bowel gas pattern is nonobstructive. A moderate amount of stool is noted within the large bowel. IMPRESSION: Bilateral nephrolithiasis is seen. No ureteral or pelvic stone. ACT 112: Negative or not required by law. Electronically signed by: Mati Sandoval M.D. 02/23/2024 3:00 PM Pelvis Ultrasound 02/23/24 13:04 US pelvic complete CLINICAL HISTORY: LL ab pain TECHNIQUE: Real-time sonographic images of the pelvic contents were obtained with transabdominal and transvaginal technique. Comparison: Comparison is made to pelvic ultrasound 01/05/[address] abdomen pelvis 02/23/2024 FINDINGS: The uterus measures 10.5 x 7.2 x 4.8 cm. The endometrial cavity echo stripe measures 0.7 cm in thickness. The uterus is normal in appearance. The right ovary measures 2.6 x 2.1 x 1.8 cm. The left ovary measures 2.8 x 2.5 x 1.7 cm. Normal appearance of the ovaries bilaterally. Doppler flow is seen bilaterally. There was small fluid near the left ovary. IMPRESSION: Normal transvaginal pelvic ultrasound. ACT 112: Negative or not required by law. Electronically signed by: Mati Sandoval M.D. 02/23/2024 3:50 PM Abdomen/Pelvis CT 02/23/24 14:02 CT abd pelvis IV con only CLINICAL HISTORY: L sided flank pain, n/v, lipase 334 TECHNIQUE: Helical axial images of the abdomen and pelvis were obtained and displayed. Automated dose lowering techniques and/or adjustment according to patient size were utilized for this exam. This exam was performed with intravenous contrast. CT DOSE: 1297.48 mGy.cm COMPARISON: Comparison is made to CT abdomen pelvis 02/22/2024 FINDINGS: Lower chest: No acute abnormality. Liver: Unremarkable. No focal lesions are seen. Gallbladder and biliary tree: The gallbladder wall is minimally prominent but not thickened. No intra- or extrahepatic biliary ductal dilation. Pancreas: Unremarkable, no focal lesions. Spleen: Unremarkable. Adrenals: Unremarkable. Kidneys and ureters: Nonobstructive nephrolithiasis is seen. Bladder: Unremarkable. Reproductive organs: Unremarkable. Bowel: The appendix is normal. Lymph nodes Retroperitoneal: Unremarkable. Pelvic: Unremarkable. Mesenteric: Unremarkable. Peritoneum: Normal. Vessels: Unremarkable. Abdominal wall: Unremarkable. Bones: Unremarkable. IMPRESSION: No acute abnormality, in particular no evidence of obstructive nephrolithiasis or CT evidence of pancreatitis. ACT 112: Negative or not required by law. Electronically signed by: Mati Sandoval M.D. 02/23/2024 2:52 PM Code Status & VTE Plan Code Status Full code VTE Prophylaxis Plan VTE Prophylaxis will be ordered: Yes Supervising Physician Co-Signing Physician Notes Patient seen and examined, chart reviewed, case discussed with Triston Travis and I agree with the assessment and plan as above except as otherwise noted Labs and images reviewed 28-year-old female with a history of recurrent kidney stones, nausea/vomiting episodes who presents with a feeling of left flank pain, dry heaving, discomfort. She reports she has been on amoxicillin/Flagyl twice daily for UTI but is continued to have dysuria similar to with prior kidney stones. She has a mildly elevated lipase in the 300s with dry heaving. CT shows no stones and no radiographic evidence of pancreatitis. On assessment hemodynamics are stable and without tachycardia. Patient feels she is in too much pain and cannot tolerate p.o. to return home. Multimodal pain control, Tylenol and Toradol. Minimize narcotics. Zofran for nausea control. IV FM overnight. PG Care Time/CCT Total # of Minutes Spent Total Time Spent with Patient: Total time spent is greater than 50% in coordination of care (as documented) at patient's floor/unit and/or counseling patient: Coding [place] [address] INT INP/OBS CARE 2/55MIN Patient Type Established History Comprehensive Exam Comprehensive Medical Decision Making Moderate Complexity Diagnoses Acute left flank pain R10.9 Nausea and vomiting, unspecified vomiting type R11.2 Vomiting type: unspecified UTI (urinary tract infection) N39.0 (2) Nausea & vomiting Vomiting type: unspecified Qualified Code(s): R11.2 - Nausea with vomiting, unspecified
[2024-02-23] MEDS: ACETAMINOPHEN 325 MG TAB PO PRN (18:26)
[2024-02-23] MEDS ORDERED: FAMOTIDINE 20 MG TAB PO PRN (19:14)
[2024-02-23] MEDS ORDERED: oxyCODONE HCL IR 5 MG TAB (IMMEDIATE RELEASE) PO PRN (19:14)
[2024-02-23] MEDS ORDERED: PROCHLORPERAZINE 5 MG in SYRINGE 4 ML IV PRN (19:14)
[2024-02-23] MEDS ORDERED: MELATONIN 3 MG TAB PO PRN (19:14)
[2024-02-23] MEDS: oxyCODONE HCL IR 5 MG TAB (IMMEDIATE RELEASE) PO PRN (19:36)
[2024-02-23] MEDS: KETOROLAC TROMETHAMINE 15 MG/ML VIAL IV PRN (20:50)
[2024-02-23] MEDS: clonazePAM 0.5 MG TAB PO PRN (20:51)
[2024-02-23] MEDS: traZODone HCL 50 MG TAB PO PRN (20:51)
[2024-02-23] MEDS: ENOXAPARIN INJ 40 MG/0.4 ML SYR SQ SCH (20:54)
[2024-02-23] MEDS: MoRPHine SULFATE 2 MG/ML CARP IV PRN (21:48)
[2024-02-24] MEDS: ONDANSETRON INJ 2 MG/ML 2 ML VIAL IV PRN (06:21)
[2024-02-24 07:24] LABS: Basophils # (auto) 0.02 K/uL (0.00-0.20); Basophils % (auto) 0.5 %; Eosinophils # (auto) 0.02 K/uL (0.00-0.50); Eosinophils % (auto) 0.5 %; Hematocrit (blood only) 34.8 % (37.0-47.0); Hemoglobin 11.3 g/dl (12.0-16.0); Lymphocytes % (auto) 37.8 %; Mean Corpuscular Hemoglobin 28.3 pg (25.0-34.0); Mean Corpuscular Hgb Conc 32.5 g/dL (32.0-36.0); Mean Corpuscular Volume 87.2 fL (80.0-100.0); Monocytes # (auto) 0.51 K/uL (0.11-0.59); Monocytes % (auto) 12.8 %; Neutrophils # (auto) 1.92 K/uL (1.40-6.50); Neutrophils % (auto) 48.4 %; Platelet Count 179 K/uL (130-400); RDW Coefficient of Variation 14.1 % (11.5-14.5); RDW Standard Deviation 44.5 fL (36.4-46.3); Red Blood Count 3.99 M/uL (4.20-5.40); White Blood Count 3.97 K/ul (4.8-10.8)
[2024-02-24 07:44] LABS: BUN Creatinine Ratio 19.4 (10-20); Calcium 8.2 mg/dl (8.6-10.3); Creatinine Clr Calc Pharmacy 132.9 ml/min; Est GFR (African American) 141.2 ml/min; Est GFR (Non-African American) 121.9 ml/min; Magnesium 1.8 mg/dl (1.7-2.4); Potassium 3.8 mmol/L (3.5-5.1)
[2024-02-24] MEDS: buPROPion XL 300 MG TABCR PO SCH (07:46)
[2024-02-24] MEDS ORDERED: oxyCODONE HCL IR 5 MG TAB (IMMEDIATE RELEASE) PO PRN ×2 (08:16→12:54)
[2024-02-24] MEDS: oxyCODONE HCL IR 5 MG TAB (IMMEDIATE RELEASE) PO PRN ×2 (09:29→13:26)
[2024-02-24 09:48] LABS: Appearance Urine Clear (Clear); Bilirubin Urine Negative (Negative); Blood Urine Negative (Negative); Color Urine Yellow; Glucose Urine UA Negative (Negative); Ketones Urine Negative (Negative); Leukocyte Esterase Urine Negative (Negative); Nitrite Urine Negative (Negative); Protein Urine Negative (Negative); Urobilinogen Urine Negative (Negative)
--- NOTE | 2024-02-24 10:41 | Hospitalist Progress Note ---
Date of Service February 24, 2024 Assessment & Plan (1) Acute left flank pain: Plan: Intermittent left flank, groin, and urethral pain x 2 weeks with acute worsening on 02/21 A/P CT without obstructive nephrolithiasis or pancreatitis, though +nephrolithiasis Elevated lipase at 334 Leading DDx: Kidney stone, pancreatitis, pain associate with UTI, BV. Suspect most likely passing kidney stone given similarity to prior episodes Multimodal pain regimen as follows: Acetaminophen p.o. (1st line) Toradol IV q6h (2nd line) Changed Oxycodone 02/21 to q6h as wearing off too quickly (3rd line) Morphine for breakthrough Added Flomax and IV fluids If no improvement by 02/24, discussed consideration of urology consultation (2) UTI (urinary tract infection): Plan: Urine culture on 02/15/2024 showed group B beta strep and Gardnerella, but no sensitivities to follow Patient was treated with metronidazole and amoxicillin x 7 days outpatient Will defer further antibiotics at this time (3) Nausea & vomiting: Plan: Zofran or Compazine as needed for nausea/vomiting Plan Disposition: Obs - Admit to [facility] [place] Full code Low-fat diet, as tolerated in the setting of pancreatitis r/o VTE PPx: Lovenox 40mg SQ q24h Admission and Anticipated Discharge Date Admission Date: February 23, 2024 Subjective Endorsing ongoing pain in her left flank and down into her left sided abdomen and suprapubic region. She feels like sharp razor blades in her urethral region. She feels like there is likely a stone sitting there waiting to be expelled. She states this feels very similar to prior episodes of passing kidney stones. She still has ongoing thin mucousy discharge that does not have a foul odor. She denies any vulvar rash. Denies nausea. Review of Systems Review of Systems: Per subjective Physical Exam Physical Exam: General: Well-appearing, NAD, though in apparent pain Cardiovascular: RRR, no M/R/G Pulmonary: CTAB, no W/R/R Abdomen: Soft, ND, no guarding, TTP left side of abdomen and suprapubic region, +L CVA TTP Extremities: Moving all extremities Integumentary: No suspicious rash or lesion on exposed skin Neurologic: AAOx3, no focal deficits Psychiatric: Appropriate mood/affect Results & Data Results & Data Vital Signs (Past 12 Hours) Vital Signs Temp Pulse Resp BP Pulse Ox O2 Del Method 02/24/24 07:37 36.6 C 88 16 103/69 100 Room Air Laboratory Results Reviewed CBC, BMP, UA, magnesium this morninghemoglobin stable 11.3, no leukocytosis, creatinine remained stable and normal, repeat urine unremarkable PG Care Time/CCT Total # of Minutes Spent Total Time Spent with Patient: Total time spent is greater than 50% in coordination of care (as documented) at patient's floor/unit and/or counseling patient: Coding Level of Care Code 69296 SUB INP/OBS CARE 3/50MIN Diagnoses Acute left flank pain R10.9 UTI (urinary tract infection) N39.0 Nausea and vomiting, unspecified vomiting type R11.2 Vomiting type: unspecified (3) Nausea & vomiting Vomiting type: unspecified Qualified Code(s): R11.2 - Nausea with vomiting, unspecified
[2024-02-24] MEDS: SODIUM CHLORIDE 0.9% 1,000 ML IV SCH (11:12)
[2024-02-24] MEDS: TAMSULOSIN HCL 0.4 MG CAP PO SCH (11:12)
[2024-02-24] MEDS: KETOROLAC TROMETHAMINE 15 MG/ML VIAL IV ONE (16:55)
[2024-02-24] MEDS: HYDROmorphone INJ 0.5 MG/0.5 ML SYR IV STA (20:20)
[2024-02-24] MEDS: PHENAZOPYRIDINE HCL 200 MG TAB PO PRN (20:21)
[2024-02-24] MEDS: KETOROLAC 30 MG/ML VIAL IV PRN (22:27)
[2024-02-25 07:55] LABS: Basophils # (auto) 0.02 K/uL (0.00-0.20); Basophils % (auto) 0.5 %; Eosinophils # (auto) 0.04 K/uL (0.00-0.50); Hematocrit (blood only) 30.3 % (37.0-47.0); Hemoglobin 9.8 g/dl (12.0-16.0); Immature Granulocytes # (auto) 0.01 K/uL (0.01-0.20); Immature Granulocytes % (auto) 0.3 %; Lymphocytes # (auto) 1.68 K/uL (1.20-3.40); Lymphocytes % (auto) 43.2 %; Mean Corpuscular Hemoglobin 28.2 pg (25.0-34.0); Mean Corpuscular Hgb Conc 32.3 g/dL (32.0-36.0); Mean Corpuscular Volume 87.3 fL (80.0-100.0); Mean Platelet Volume 10.3 fL (9.4-12.4); Monocytes # (auto) 0.58 K/uL (0.11-0.59); Monocytes % (auto) 14.9 %; Neutrophils # (auto) 1.56 K/uL (1.40-6.50); Neutrophils % (auto) 40.1 %; Platelet Count 154 K/uL (130-400); RDW Coefficient of Variation 14.1 % (11.5-14.5); RDW Standard Deviation 44.9 fL (36.4-46.3); Red Blood Count 3.47 M/uL (4.20-5.40); White Blood Count 3.89 K/ul (4.8-10.8)
[2024-02-25 08:59] LABS: BUN Creatinine Ratio 13.8 (10-20); Calcium 8.1 mg/dl (8.6-10.3); Creatinine Clr Calc Pharmacy 126.8 ml/min; Est GFR (African American) 139.1 ml/min; Potassium 4.1 mmol/L (3.5-5.1)
--- NOTE | 2024-02-25 11:20 | Discharge Summary ---
Date of Service February 25, 2024 Admission HPI Per Admitting Provider Damaris is a 28-year-old female with PMH of anxiety, depression, GERD, hypothyroidism, nephrolithiasis, and stress urinary incontinence. She presented for intermittent left-sided flank and groin pain x 2 weeks, with an acute exacerbation of symptoms on 02/21. Patient reports she was nauseous and vomiting all day on 02/21. She also endorses burning with urination that feels like "razor blades" when she goes to the bathroom. She does have history of complicated kidney stones during her most recent , and notes that she currently feels as if she is passing a stone. Patient was recently placed on amoxicillin and Flagyl BID x 7 days outpatient for UTI, but this did not alleviate her symptoms. Patient did note chills last night, but did not take her temperature at home. She has been taking Tylenol and ibuprofen at home for the pain, as well as 1 tablet of oxycodone 5 mg last night that she received after being sent home from the ED. These medications help a little bit, but did not keep the pain from returning. She describes the pain as a "sharp, stabbing" pain in her left flank that radiates down into her groin. No radiation to the lower left back. The pain is constant, and only alleviated with some pain medication. She also notes that bending over and putting pressure on the left flank does help sometimes. He rates the pain 7/10 at present after receiving pain medicine in the ED; 10/10 at worst. LMP was 3 weeks ago. No history of pancreatitis to her knowledge. Patient has not drank alcohol in the past 2 weeks, and denies heavy alcohol use recently; she will occasionally have an alcoholic drink every other Sunday. She denies smoking, tobacco use, and recreational drug use. Patient has been tolerating fluids and solids since last night. Patient's vitals are stable at time of admission. ED course: NSS 1000 mL IV Reglan 10 mg IV Toradol 10 mg IV Benadryl 25 mg IV Valium 5 mg IV Morphine 4 mg IV x 2 ROS: Patient endorses chills, CABALLERO (chronic, but more frequently in the past 2 weeks), body aches, nausea, vomiting (acidic), burning with urination, dysuria, and sharp stabbing pain in her left flank. Patient denies fever, sweating, dizziness, lightheadedness, chest pain, chest palpitations, SOB, cough, abdominal pain, diarrhea, hematemesis, blood in the urine/stool, or numbness/tingling/pain in the arms or legs. Principal Diagnosis Recurrent left flank pain due to ureteral colic Discharge Exam General-alert and oriented x3, no fever, no chills HEENT-head atraumatic and normocephalic, pupils equal and reactive to light, extraocular muscles intact Neck-no lymphadenopathy or thyromegaly, trachea midline Chest-clear to auscultation. No rales, wheezing or rhonchi Cardiac-regular rate and rhythm, normal S1 and S2 Abdomen-normal bowel sounds, no hepatosplenomegaly Extremities-no cyanosis, clubbing, or edema Neuro-cranial nerves II through XII intact, motor and sensory function within normal limits, strength symmetrical, no focal deficits Psych-normal affect, normal mood Discharge Data Allergies Allergy/AdvReac Type Severity Reaction Status Date / Time aluminum [From Drysol] Allergy Intermediate Hives Verified 02/22/24 17:15 Consultations 02/23/24 17:33 ED Decision to Admit Stat Ordered Studies 02/23/24 13:04 US pelvic complete Stat 02/23/24 14:02 CT abd pelvis IV con only Stat Hospital Course (1) Acute left flank pain: Unfortunately she has recurrent ureteral colic from underlying nephrolithiasis. No obstruction or hydronephrosis seen on CT scan. Renal function is stable. No indication for further hospitalization. Continue Flomax at discharge (2) UTI (urinary tract infection): Nothing acute. No antibiotics indicated at this time. (3) Nausea & vomiting: Zofran or Compazine as needed for nausea/vomiting. Resolved Plan Home today, February 24 Total Time Total Time Spent Total Time Spent (In Minutes): 45 minutes Discharge Plan Discharge Items Patient Disposition: Home - Self-Care Reason For Visit: LEFT FLANK/GROIN PAIN, BURNING WITH URINATION Discharge Diagnosis: Left flank pain due to left ureteral colic Activity: Resume your previous activity Non-emergency contact: Primary Care Provider Call non-emergency contact if: your symptoms worsen Follow-up/Referrals: Luisa Roldan MD [Primary Care Provider] - Diet: Regular Addtl Attending Provider Instructions: Take Flomax daily to help with passage of kidney stones. Use oxycodone as needed for any recurrent pain Pending Studies at Discharge: No Stand-Alone Forms: [facility], Smoking Cessation Medications and DC Order Prescriptions: New tamsulosin 0.4 mg Capsule 0.4 mg PO QAM Qty: 30 0RF oxycodone 5 mg Tablet 5 mg PO Q4HWA PRN (Reason: pain) Qty: 20 0RF Continued trazodone 50 mg tablet 50 - 100 mg PO HS PRN (Reason: Insomnia) bupropion HCl 300 mg tablet extended release 24 hr 300 mg PO QAM famotidine 20 mg tablet 20 mg PO QAM PRN (Reason: acid reflux ) clonazepam 0.5 mg tablet 0.25 - 0.5 mg PO HS PRN (Reason: anxiety/insomnia) ondansetron HCl 4 mg tablet 4 mg PO TID PRN (Reason: nausea and vomiting) 5 Days Qty: 15 0RF Discontinued metronidazole 500 mg tablet 500 mg PO BID 7 Days Qty: 14 0RF amoxicillin 500 mg tablet 500 mg PO BID 7 Days Qty: 14 0RF oxycodone 5 mg tablet 5 mg PO Q8H PRN (Reason: pain) Qty: 6 0RF Discharge Orders: Discharge Order (Routine); Ordered 02/25/24 Ordered By: Anshul Ambrose Admission Data Admit Date/Time: 02/23/24 18:02 Attending Provider: Anshul Ambrose Admit Provider: Duke Vieira Primary Care Provider: Luisa Roladn Other Providers: Duke Vieira Coding Level of Care Code 54668 INP/OBS DISCH >30 MIN Diagnoses Acute left flank pain R10.9 UTI (urinary tract infection) N39.0 Nausea and vomiting, unspecified vomiting type R11.2 Vomiting type: unspecified
== END 2024-02-25 13:09 | disposition home or self-care (01) ==
LOC: ED 12:49 → 3W 12:49 → SUATTDRO 18:02 → 3W 18:43

== ENCOUNTER 2024-12-22 10:54 | Inpatient (IN) ==
--- NOTE | 2024-12-22 11:37 | Emergency Department Note ---
History of Present Illness General Chief complaint: Back Injury/Pain Stated complaint: BACK PAIN, NECK PAIN Time Seen by Provider: 12/22/24 11:19 History of Present Illness Maximum Pain Intensity: 8 This is a 29-year-old female that presents to the emergency department via private vehicle with complaints of "back pain, neck pain". The patient notes that yesterday she reached for a bowl in the cupboard. She did reach overhead. She then felt pain to the upper back/neck area. No other trauma or injury. She notes spasm to the musculature. She tried muscle relaxers without any relief. Patient notes the pain is mostly centered down the neck into the upper back area. No chest pain or abdominal pain. She reached to the pain management clinic this morning and was referred here for further evaluation and management. No weakness in the extremities. No fevers. No recent infectious symptoms. Home Medications Medication Instructions Recorded Confirmed Type bupropion HCl 300 mg 24 hr tablet, 300 mg PO QAM 08/17/23 12/03/24 History extended release ondansetron HCl 4 mg tablet 4 mg PO Q6H PRN nausea and 03/19/24 12/03/24 Rx vomiting #10 tabs diazepam 5 mg tablet (Valium) See Rx Instructions .Route 07/01/24 12/03/24 History .COMPLEX PRN Anxiety cholecalciferol (vitamin D3) 25 25 mcg PO DAILY 07/03/24 12/03/24 History mcg (1,000 unit) capsule bupropion HCl 150 mg 24 hr tablet, 150 mg PO QAM 08/25/24 12/03/24 History extended release ibuprofen 800 mg tablet 800 mg PO TID PRN Pain 10/03/24 12/03/24 History levothyroxine 150 mcg tablet 150 mcg PO DAILY #30 tabs 11/10/24 12/03/24 Rx naproxen 500 mg tablet 500 mg PO BID PRN pain #20 tabs 12/03/24 Rx ondansetron 4 mg disintegrating 4 mg PO Q6H PRN nausea and 12/03/24 Rx tablet vomiting #15 tabs oxcarbazepine 300 mg tablet 300 mg PO BID 12/03/24 12/03/24 History oxycodone 5 mg tablet 5 mg PO Q8H PRN pain #15 tabs 12/03/24 Rx thiamine HCl (vitamin B1) 100 mg 100 mg PO DAILY 12/03/24 12/03/24 History tablet (Vitamin B-1) Allergies Allergy/AdvReac Type Severity Reaction Status Date / Time aluminum [From Drysol] Allergy Intermediate Hives Verified 12/03/24 13:13 Past Med/Surg History Problem List Intractable back pain (Acute) Closed fracture of right distal radius (Acute) Pelvic pain Fatigue (Acute) Thyroiditis Tachycardia Renal colic on left side (Acute) Symptomatic PVCs Menorrhagia Lumbar paraspinal muscle spasm (Acute) Cervical paraspinal muscle spasm Neck pain (Acute) History of renal calculi (Acute) Nephrolithiasis (Acute) Right ovarian cyst Developmental dyslexia Depression with anxiety GERD (gastroesophageal reflux disease) History of breast lump/mass excision (01/17/22) Excision of left breast mass. Dr. 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 CURRENT STATUS Surgical History H/O lithotripsy History of laparoscopy S/P cystoscopy with ureteral stent placement 12/05/20 Dr. Lamont Ambrose- Cystoscopy, Left ureteroscopy, Laser lithotripsy, Stone basket extraction of stone, Left retrograde pyelogram, Left ureteral stent placement Nasal fracture Repair of nasal fracture Family History Mother No problems noted. 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: No Beliefs That Will Affect Care: None marital status: Single Current Living Situation: Spouse Current Living Situation Comment: Boyfriend, 2 sons, boyfriend's daughter current occupational status: employed 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 @ [employer] How many Children do You have: 1 Feels Safe at Home: Yes Childhood Exposure to Second-Hand Smoke: No Diet: regular during the past year weight has: increased > 10 lbs Physical Activity Frequency: Daily Seatbelt Use: always Sunscreen Use: Yes Assistive Devices: None Review of Systems A total of 10 systems reviewed and were otherwise negative Physical Exam Vital Signs Vital Signs - 24 hr 12/22/24 11:03 12/22/24 11:55 12/22/24 12:02 Temperature 36.6 C Temperature Source Temporal Artery Scan Pulse Rate 110 H 89 Pulse Rate [Finger] 96 H Pulse Strength [Finger] Normal Respiratory Rate 18 18 16 Respiratory Effort / Characteristics Non-Labored Spontaneous Non-Labored Spontaneous Respiratory Depth Normal Normal Respiratory Pattern Regular Blood Pressure 132/104 H Blood Pressure [Left Arm] 123/90 Blood Pressure Mean 113 Blood Pressure Mean [Left Arm] 101 Blood Pressure Position [Left Arm] Lying Pulse Oximetry 99 98 99 Oxygen Delivery Method Room Air Room Air Room Air Sepsis Recent Fever Within 48 Hours No Sepsis New/Unexplained Change in Mental Status N/A Sepsis Action Taken by Nursing No Action Required 12/22/24 13:52 Temperature Temperature Source Pulse Rate Pulse Rate [Finger] 97 H Pulse Strength [Finger] Respiratory Rate 18 Respiratory Effort / Characteristics Respiratory Depth Respiratory Pattern Blood Pressure Blood Pressure [Left Arm] 134/79 Blood Pressure Mean Blood Pressure Mean [Left Arm] 97 Blood Pressure Position [Left Arm] Semi-fowlers Pulse Oximetry 96 Oxygen Delivery Method Room Air Sepsis Recent Fever Within 48 Hours Sepsis New/Unexplained Change in Mental Status Sepsis Action Taken by Nursing VITAL SIGNS - Vital signs and nursing notes were reviewed. Stable and afebrile. GENERAL -29-year-old female appearing her stated age who is in no acute distress. Communicates well with provider and answers questions appropriately. SKIN - Without rashes. No meningeal or petechial rash. The skin overlying the back is unremarkable. HEAD - NC/AT. EYES - PERRL with EOMI bilaterally. Sclera anicteric. EARS - No deformities of external structures noted on gross examination bilaterally. External auditory canals without discharge or otorrhea. Tympanic membranes pearly kauffman without retraction or bulging. No fluid or purulent material visualized behind the TM. Handle of malleus, umbo, cone of light, pars tensa/flaccid all easily visualized. NOSE - Midline and without cyanosis. No epistaxis or purulent drainage noted. Septum midline without deviation or septal hematoma noted. MOUTH/OROPHARYNX - Without perioral cyanosis. Buccal mucosa pink and moist and without leukoplakia. Tongue midline with equal elevation of palate bilaterally. No tonsillar hypertrophy, erythema, or exudates noted. Good dentition noted. NECK -slight decreased range of motion secondary to muscle spasm in the posterior spinous musculature. Supple to palpation. No lymphadenopathy noted. No nuchal rigidity. LUNGS - Chest wall symmetric without accessory muscle use, intercostals retractions, or central cyanosis. Normal vesicular breath sounds CTA B/L. No wheezes, rales, or rhonchi appreciated. CARDIAC - RRR MUSCULOSKELETALthere is reproducible tenderness and palpable muscle spasm throughout the trapezius muscle distribution in the paraspinous musculature of the C-spine, T-spine and upper L-spine. ABDOMEN - Abdominal contour normal without pulsations or visible masses. BS normoactive all four quadrants. No tenderness, palpable masses, hepatosplenomegaly, or ascites noted. EXTREMITIES - No clubbing or peripheral cyanosis. +5/5 strength noted in UE/LE bilaterally. NEUROLOGIC - Cranial nerves II through XII grossly intact. PSYCH -alert, oriented and pleasant on exam Course Administered Medications Discontinued Medications Hydromorphone HCl (Hydromorphone Inj 0.5 Mg/0.5 Ml Syr) 0.5 mg IV NOW STA Stop: 12/22/24 11:35 Last Admin: 12/22/24 11:55 Dose: 0.5 mg Documented By: HEATHER Hydromorphone HCl (Hydromorphone Inj 0.5 Mg/0.5 Ml Syr) 0.5 mg IV NOW STA Stop: 12/22/24 13:00 Last Admin: 12/22/24 13:05 Dose: 0.5 mg Documented By: HEATHER Ketorolac Tromethamine (Ketorolac Tromethamine 15 Mg/Ml Vial) 15 mg IV NOW STA Stop: 12/22/24 13:00 Last Admin: 12/22/24 13:05 Dose: 15 mg Documented By: HEATHER Lidocaine (Lidocaine 5% 1 Patch) 1 patch TD NOW STA Stop: 12/22/24 13:00 Last Admin: 12/22/24 13:06 Dose: 1 patch Documented By: HEATHER Methocarbamol (Methocarbamol 500 Mg Tablet) 500 mg PO NOW STA Stop: 12/22/24 14:44 Last Admin: 12/22/24 15:27 Dose: 500 mg Documented By: DIONE Ondansetron HCl (Ondansetron Inj 2 Mg/Ml 2 Ml Vial) 4 mg IV NOW STA Stop: 12/22/24 11:37 Last Admin: 12/22/24 11:55 Dose: 4 mg Documented By: HEATHER Medical Decision Making Laboratory Data 12/22/24 11:49 12/22/24 11:49 Lab Results 12/22/24 Range/Units 11:49 WBC 5.51 (4.8-10.8) K/ul RBC 4.61 (4.20-5.40) M/uL Hgb 13.7 (12.0-16.0) g/dl Hct 40.4 (37.0-47.0) % MCV 87.6 (80.0-100.0) fL MCH 29.7 (25.0-34.0) pg MCHC 33.9 (32.0-36.0) g/dL RDW Std Deviation 38.2 (36.4-46.3) fL RDW Coeff of Baldo 11.9 (11.5-14.5) % Plt Count 262 (130-400) K/uL MPV 10.0 (9.4-12.4) fL Immature Gran % (Auto) 0.2 % Neut % (Auto) 58.7 % Lymph % (Auto) 30.9 % Adair % (Auto) 9.4 % Eos % (Auto) 0.4 % Baso % (Auto) 0.4 % Neut # (Auto) 3.24 (1.40-6.50) K/uL Lymph # (Auto) 1.70 (1.20-3.40) K/uL Adair # (Auto) 0.52 (0.11-0.59) K/uL Eos # (Auto) 0.02 (0.00-0.50) K/uL Baso # (Auto) 0.02 (0.00-0.20) K/uL Immature Gran # (Auto) 0.01 (0.01-0.20) K/uL Sodium 137 (136-145) mmol/L Potassium 3.5 (3.5-5.1) mmol/L Chloride 104 (98-107) mmol/L Carbon Dioxide 26 (21-32) mmol/L Anion Gap 7 (3-11) BUN 9 (6-23) mg/dl Creatinine 0.68 (0.6-1.2) mg/dl Est Cr Clr Drug Dosing 119.5 ml/min eGFR 120.08 BUN/Creatinine Ratio 13.2 (10-20) Glucose 103 H (70-99(Fasting)) mg/dl Calcium 9.4 (8.6-10.3) mg/dl Total Bilirubin 0.4 (0.2-1.0) mg/dl AST 18 (13-39) U/L ALT 13 (7-52) U/L Alkaline Phosphatase 82 (34-104) U/L Total Protein 8.0 (6.0-8.3) gm/dl Albumin 4.5 (3.4-5.0) gm/dl Globulin 3.5 (2.5-4.0) gm/dl Albumin/Globulin Ratio 1.3 (0.9-2) HCG, Qual Negative (Negative) Urine Color Yellow Urine Appearance Clear (Clear) Urine pH 5.5 (4.5-7.5) Ur Specific Bradley 1.014 (1.000-1.030) Urine Protein Negative (Negative) Urine Glucose (UA) Negative (Negative) Urine Ketones Negative (Negative) Urine Blood Negative (Negative) Urine Nitrite Negative (Negative) Urine Bilirubin Negative (Negative) Urine Urobilinogen Negative (Negative) Ur Leukocyte Esterase Negative (Negative) MDM Narrative Patient was seen and evaluated as above in room D02b. Review was performed of triage nursing notes and vital signs. I did review pertinent previous visits and patient history. After obtaining a thorough history and physical examination the above work up was performed. Patient presents to us today for evaluation of her back pain that began after reaching overhead for a bowl in the kitchen. No other trauma or injury. She is neurovascularly intact on my assessment. No chest pain or shortness of breath. Options of care were discussed with the patient. IV access with established. Labs were drawn. There is no leukocytosis or concerning anemia. No emergent metabolic disturbance. Mild hyperglycemia. hCG negative. Urinalysis does not suggest infection. Imaging considered but at this time will defer as I do suspect musculoskeletal etiology, specifically muscle strain. I do not suspect cord injury. I do not suspect neurovascular compromise. I do not suspect dissection. Despite multiple analgesic medicines here, she continues with pain that is a 9/10. Inpatient management considered. Case discussed with the hospitalist service. Please refer to further documentation regarding her stay. GCS: 15 In the evaluation and treatment of this patient the following differential diagnoses were entertained: Strain, sprain, dissection, ACS, PE, rhabdomyolysis, among others Impression & Plan Intractable back pain Discharge Plan Visit Data Chief Complaint: Back Injury/Pain Stated Complaint: BACK PAIN, NECK PAIN ED Provider: Rey Noel ED Midlevel Provider: David Schwarz Discharge Problem: Intractable back pain Patient Disposition: Admitted As Inpatient Condition: Good Forms Stand Alone Forms: My [employer] Prescriptions Prescriptions: No Action ibuprofen 800 mg tablet 800 mg PO TID PRN (Reason: Pain) cholecalciferol (vitamin D3) 25 mcg (1,000 unit) capsule 25 mcg PO DAILY levothyroxine 150 mcg tablet 150 mcg PO DAILY Qty: 30 1RF oxycodone 5 mg tablet 5 mg PO Q8H PRN (Reason: pain) Qty: 15 0RF diazepam [Valium] 5 mg tablet See Rx Instructions .ROUTE .COMPLEX PRN (Reason: Anxiety) Rx Instructions: Take 10mg at bedtime and 5mg during the day if needed ondansetron HCl 4 mg tablet 4 mg PO Q6H PRN (Reason: nausea and vomiting) Qty: 10 0RF bupropion HCl 150 mg tablet extended release 24 hr 150 mg PO QAM Rx Instructions: Take 150mg w/ 300mg to equal 450mg by mouth once every morning bupropion HCl 300 mg tablet extended release 24 hr 300 mg PO QAM Rx Instructions: Take 300mg w/ 150mg to equal 450mg by mouth once every morning thiamine HCl (vitamin B1) [Vitamin B-1] 100 mg Tablet 100 mg PO DAILY oxcarbazepine 300 mg tablet 300 mg PO BID naproxen 500 mg tablet 500 mg PO BID PRN (Reason: pain) Qty: 20 0RF ondansetron 4 mg tablet,disintegrating 4 mg PO Q6H PRN (Reason: nausea and vomiting) Qty: 15 0RF Referrals Referrals: Luisa Roldan MD [Primary Care Provider] -
[2024-12-22] MEDS: ONDANSETRON INJ 2 MG/ML 2 ML VIAL IV STA (11:55)
[2024-12-22] MEDS: HYDROmorphone INJ 0.5 MG/0.5 ML SYR IV STA ×3 (11:55→17:19)
[2024-12-22 12:08] LABS: Basophils # (auto) 0.02 K/uL (0.00-0.20); Basophils % (auto) 0.4 %; Eosinophils # (auto) 0.02 K/uL (0.00-0.50); Eosinophils % (auto) 0.4 %; Hematocrit (blood only) 40.4 % (37.0-47.0); Hemoglobin 13.7 g/dl (12.0-16.0); Immature Granulocytes # (auto) 0.01 K/uL (0.01-0.20); Immature Granulocytes % (auto) 0.2 %; Lymphocytes % (auto) 30.9 %; Mean Corpuscular Hemoglobin 29.7 pg (25.0-34.0); Mean Corpuscular Hgb Conc 33.9 g/dL (32.0-36.0); Mean Corpuscular Volume 87.6 fL (80.0-100.0); Monocytes # (auto) 0.52 K/uL (0.11-0.59); Monocytes % (auto) 9.4 %; Neutrophils # (auto) 3.24 K/uL (1.40-6.50); Neutrophils % (auto) 58.7 %; Platelet Count 262 K/uL (130-400); RDW Coefficient of Variation 11.9 % (11.5-14.5); RDW Standard Deviation 38.2 fL (36.4-46.3); Red Blood Count 4.61 M/uL (4.20-5.40); White Blood Count 5.51 K/ul (4.8-10.8)
[2024-12-22 12:15] LABS: Appearance Urine Clear (Clear); Bilirubin Urine Negative (Negative); Blood Urine Negative (Negative); Color Urine Yellow; Glucose Urine UA Negative (Negative); Ketones Urine Negative (Negative); Leukocyte Esterase Urine Negative (Negative); Nitrite Urine Negative (Negative); Protein Urine Negative (Negative); Specific Gravity Urine 1.014 (1.000-1.030); Urobilinogen Urine Negative (Negative); pH Urine 5.5 (4.5-7.5)
[2024-12-22 12:27] LABS: Albumin Globulin Ratio 1.3 (0.9-2); Albumin Level 4.5 gm/dl (3.4-5.0); BUN Creatinine Ratio 13.2 (10-20); Bilirubin,Total 0.4 mg/dl (0.2-1.0); Calcium 9.4 mg/dl (8.6-10.3); Creatinine Clr Calc Pharmacy 119.5 ml/min; Globulin 3.5 gm/dl (2.5-4.0); Potassium 3.5 mmol/L (3.5-5.1)
[2024-12-22 12:33] LABS: Pregnancy Test, Serum Negative (Negative)
[2024-12-22] MEDS: KETOROLAC TROMETHAMINE 15 MG/ML VIAL IV STA (13:05)
[2024-12-22] MEDS: LIDOCAINE 5% 1 PATCH TD STA (13:06)
[2024-12-22] MEDS: METHOCARBAMOL 500 MG TABLET PO STA (15:27)
--- OUTSIDE RECORDS SUMMARY | 2024-12-22 15:49 | External Medical Summary | Continuity of Care Document ---
Author Name Unknown Organization [id number] Address [address] [place] [address] [id number] Care Team Providers Care Certified Wellness Program Manager Name Role Phone Luisa Roldan Primary Care Physician [phone] Encounter [facility] [id number] Date(s): 12/17/24 - 12/17/24 [facility] 0 [facility] [address] [place] [id number] Encounter Diagnosis Nondisplaced fracture of right radial styloid process, initial encounter for closed fracture(Discharge Diagnosis) - 12/17/24 Discharge Disposition: Home or Self Care Attending Physician: ANDREW Akers Jennifer R Encounter Type: Clinic Allergies, Adverse Reactions, Alerts Substance Criticality Severity Reaction Reaction Severity Status Chlorhexidine Gluconate pruritis Active Assessment and Plan Extracted from: Title:Follow Up Visit Author:ANDREW Akers Jenn ifer R Date:12/17/24 1.Nondisplaced fracture of right radial styloid process, initial encounter for closed fracture Assessment: Nondisplaced fracture of the right distal radius styloid, subsequent visit, closed, stable, acceptable alignment, routine healing Plan: Discontinue the Exos. Avoid any activities that cause pain. Work on range of motion exercises. Explained to her that her fracture appears to be healed. It is nontender today. Hurstpain that she has is coming from the stiffness that she has in the wrist. Encouraged aggressive range of motion with flexion, extension and radial and ulnar deviation. She can do this with outpatient physical therapy. She states that she cannot come to physical therapy as often as they have her scheduled.Encouraged her to do the exercises on her own. I think it will help getting rid of the Exos. She could wear this forcertain activities depending on how her wrist feels at that time. Explained to her that we will continue to be painful until the stiffness is worked out of it. Exercises were taught for flexion and extension of the wrist today. She knows to call with any problems, questions or concerns. I would like to see her back in 6 weeks for repeat clinical exam. If her range of motion is improved and she does nothave pain at that time she does not need x-rays. She will call with any problems, questions or concerns. She understands and agrees with the plan. This chart was completed utilizing Projectioneering voice recognition software. Grammatical errors, random word insertions, pronoun errors, and in complete sentences are an occasional consequence of the system. Any questions or concerns about the content, text, or information contained within the body of this dictation should be addressed directly to the provider for clarification. Medications Apri 0.15 mg-0.03 mg oral tablet Start: 03/06/22 2:51:00 PM EDT, 1 tab, PO, Daily Start Date: 03/06/22 Status: Ordered Repeat number: 1 baclofen 10 mg oral tablet TAKE 1 TABLET BY MOUTH 3 TIMES A DAY Start Date: 03/14/22 Status: Ordered Repeat number: 1 ferrous gluconate 240 mg (27 mg elemental iron) oral tablet Start: 08/22/23 11:09:00 PM EST, PO, 1 Refill(s), Take by mouth. Start Date: 08/22/23 Status: Ordered Repeat number: 1 Flomax 0.4 mg oral capsule Start: 09/02/23 12:22:00 PM EST, 1 cap, PO, Daily, Disp# 14 cap, Pharmacy: [facility] [place] Start Date: 09/02/23 Stop Date: 09/16/23 Status: Ordered Quantity: 14.0 Unit: cap Repeat number: 1 gabapentin 400 mg oral capsule TAKE 1 CAPSULE BY MOUTH EVERY EVENING Start Date: 03/14/22 Status: Ordered Repeat number: 1 metoprolol succinate 25 mg oral tablet, extended release Start: 08/22/23 11:09:00 PM EST, 25 mg =, PO, 6 Refill(s), Take 1 Tablet by mouth in the morning. Start Date: 08/22/23 Status: Ordered Repeat number: 1 oxyCODONE 5 mg oral tablet Start: 09/02/23 12:53:00 PM EST, 5 mg =, PO, q6h, Disp# 5 tab, Refills: 0, PRN: pain - moderate (4-6), [id number] Start Date: 09/02/23 Status: Ordered Quantity: 5.0 Unit: tab Repeat number: 1 oxyCODONE 5 mg oral tablet Start: 10/13/24 3:04:00 PM EST, 1 tab, PO, q6h, Disp# 10 tab, Refills: 0, Note to Pharmacy: continued therapy, PRN: as needed for pain, Pharmacy: [facility]/pharm[facility] #[id number] Start Date: 10/13/24 Status: Ordered Quantity: 10.0 Unit: tab Repeat number: 1 Wellbutrin Start: 03/06/22 2:51:00 PM EDT, 150 mg =, PO, Daily Start Date: 03/06/22 Status: Ordered Repeat number: 1 Mental Status 12/17/24 Barriers to Learning one year None evide nt Mandatory Health Literacy Documentation Yes Health Literacy Communication Barriers N ever Primary Language [place] Problem List Condition Confirmation Course Effective Dates Status Health St atus Informant Nondisplaced fracture of right radial styloid process, initial encounter for closed fracture Confirmed Active 25 weeks gestation of Confirmed Active History of kidney stones Confirmed Active Diagnosis Diagnosis Type Effective Dates Health Status Clinical Service Informant Nondisplaced fracture of right radial styloid process, initial encounter for closed fracture Discharge Diagnosis 12/17/24 Procedures Procedure Date Related Diagnosis Body Site Status Excision 1 Completed Excision of cyst of breast Completed Oral surgery 2 Completed Renal artery stent procedure using fluoroscopic guidance with contrast Completed 1cyst removal on breast 2wisdom teeth extraction Social History Social History Type Response Smoking Status Never smoked cigaret davide Sex Female Sex Representation Female (finding) Ortho Outpt Note * ANDREW Akers, Diana R: PERFORM Event Display: Ortho Outpt Note Authored Date: [id number] Chief Complaint f/u R wrist fx Primary Care Provider MD Jamar, Luisa Soriano Subjective Right wrist fracture follow-up: DOI: 10/09/2024 Jimmy here today for follow-up of right distal radius styloid fracture. She has pain in herright wrist. States that it is very stiff. She does feel better with the brace off rather than on. She has not really been taking it off since her last appointment to do gentle range of motion exercises. She has been working onmovement of her fingers. Her first physical therapy appointme nt since her lastappointment with me was this morning. She states that she has a lot of stiffness in the wrist. It is worse than it had been when I last saw her. Denies any numbness or tingling. Objective Physical Exam Vitals:Last Updated 12/17/24 14:10 Date Temp BP Location Pulse RR SpO2 Pain 12/17/24 5 11/19/24 3 10/31/24 5 Exam of herright wrist: No edema. No erythema or ecchymosis. Nontender over the radial styloid or snuffbox today.. She has pain with any type of active range of motion of the wrist joint itself. She does tolerate passive flexion and extension, radial and ulnar deviation to a certain pointof the wrist joint. Distal pulses are 2+. Capillary fill is brisk. Nontender throughout the metacarpals.She has good range of motion of herfingers with flexion andextension. She is able to approximate her thumbto all of her fingers. Full range of motion of her right thumb is intact. Strength is 5/5. Full elbow range of motion. She has full pronation and supination of the forearm without discomfort. Diagnostic Results Radiology images: 4 views of the right wrist were obtained todayshow a healed right radial styloid fracture in unchanged alignment. No other fractures appreciated. X- rayswere interpreted by myself and discussed with the patient will be further reviewed by radiologist. Assessment/Plan 1.Nondisplaced fracture of right radial styloid process, initial encounter for closed fracture Assessment: Nondisplaced fracture of the right distal radius styloid, subsequent visit, closed, stable, acceptable alignment, routine healing Plan: Discontinue the Exos. Avoid any activities that cause pain. Work on range of motion exercises. Explained to her that her fracture appears to be healed. It is nontender today. Hurstpain that she has is coming from the stiffness that she has in the wrist. Encouraged aggressive range of motion with flexion, extension and radial and ulnar deviation. She can do this with outpatient physical therapy. She states that she cannot come to physical therapy as often as they have herscheduled.Encouraged her to do the exercises on her own. I think it will help getting rid of the Exos. She could wear this forcertain activities depending on how her wrist feels at that time. Explained to her that we will continue to be painful until the stiffness is worked out of it.Exercises were taught for flexion and extension of the wrist today. She knows to call with any problems, questions or concerns. I would like to see her back in 6 weeks for repeat clinical exam.If her range of motion is improved and she does nothave pain at that time she does not need x-rays. She will call with any problems, questions or concerns. She understands and agrees with the plan. This chart was completed utilizing Projectioneering voice recognition software. Grammatical errors, random word insertions, pronoun errors, and in complete sentences are an occasional consequence of the system. Any questions or concerns about the content, text, or information contained within the body of this dictation should be addressed directly to the provider for clarification. Electronic Signature on File Electronically Reviewed/Signed by: Diana Akers PA-C Author Signature Dt/Tm:12/17/2024 02:42PM Division of Sports Medicine Electronically Reviewed/Signed by: Scout Gan MD Cosigner Signature Dt/Tm: 12/17/2024 08:21 PM Knife Finisher for Clinical Affairs, [facility] Eda Professor in Orthopaedics D[place], [facility] Patient Care team information Care Team Personnel Name: Candido Russell Erika Joy Position: Pharmacist Member Role: Pharmacy - Lifetime Name: MD Jamar, Luisa Soriano Position: Referring Member Role: Primary Care Provider Address: [address] [place] [address] Telecom: [phone] Care Team Related Persons Name: JULIANNE RODRIGUEZ Insurance Providers Guarantor name: HUONG Health Plan Information #: 1 Payer: [employer] Member Number: [id number] Policy Number: NA Group Number: [id number] Health Plan Information #: 2 Payer: [employer] Member Number: [id number] Policy Number: NA Group Number: [id number]
--- OUTSIDE RECORDS SUMMARY | 2024-12-22 15:49 | External Medical Summary | Summary of Care ---
Author Name Unknown Organization [facility] Address [address] [place] [address] Phone [phone] Care Team Providers Care Research Coordinator Name Role Phone Valentina Davila LAURA Primary Care Provider [phone] Reason for Visit * Reason Onset Date Comments Forms Request 12/04/2024 Encounter Details Date Type Department Care Team (Late st Contact Info) Description 12/04/2024 Telephone [facility] [address] [place] [address] Rey Corea MD [address] [place] [address] Forms Request Allergies No known active allergiesdocumented as of this encounter (statuses as of 12/11/2024) Medications buPROPion HCl ER (XL) 150 MG Oral Tablet Extended Release 24 Hour Take 2 Tablets by mouth in the morning. 30 Tablet 6 3 Active diazePAM 5 MG Oral Tablet (Valium) Take 1 Tablet by mouth at bedtime as needed for Muscle spasms. 6 Tablet 4 Active Levothyroxine Sodium 25 MCG Oral Tablet (Levoxyl) Take 6 Tablets by mouth daily first thing in the morning. (at least 30 min prior to breakfast or other meds) Active Levothyroxine Sodium 25 MCG Oral Tablet (Levoxyl) Take 3 Tablets by mouth daily first thing in the morning. (at least 30 min prior to breakfast or other meds) Active Cyclobenzaprine HCl 5 MG Oral Tablet (Flexeril) Take 1 Tablet by mouth in the morning and 1 Tablet before bedtime. 4 Active oxyBUTYnin Chloride ER 5 MG Oral Tablet Extended Release 24 Hour (Ditropan XL) Take 1 Tablet by mouth in the morning. 90 Tablet 3 4 Active documented as of this encounter (statuses as of 12/11/2024) Active Problems Problem Noted Date Diagnosed Date Multiple kidney stones 03/28/2024 PID (pelvic inflammatory disease) 03/27/2024 Pelvic pain in female 03/27/2024 Kidney stone complicating 11/15/2023 Overview (11/15/2023): Bilateral Nausea and vomiting 10/14/2023 31 weeks gestation of 10/14/2023 History of hyperthyroidism 07/05/2023 Overview (11/15/2023): No meds. Check TSH 3rd trimester. TSH Results: Lab Results Component Value Date/Time TSH - [facility] 1.00 09/19/2023 09:47 AM TSH - [facility] 1.02 09/19/2023 09:47 AM TSH - [facility] 2.29 07/04/2023 09:16 AM TSH - [facility] 1.56 11/06/2019 11:09 AM TSH - [facility] 0.49 03/27/2018 01:21 PM TSH - [facility] 1.22 05/22/2017 11:26 AM Encounter for supervision of other normal , unspecified trimester 05/03/2023 Hx of preeclampsia, prior , currently p regnant 05/03/2023 Overview (05/03/2023): Dx at 38w, IOL at that time Adjustment disorder with anxiety 05/03/2023 Overview (05/03/2023): Following with psych. Prior to , was taking wellbutrin, trazodone, and Klonopin. Stopped all with knowledge of . Planning to restart wellbutrin, and take trazodone only prn sleep. Tachycardia 05/03/2023 Overview (09/05/2023): Had been taking propranolol, stopped with knowledge of and has not had many issues with elevated heart rate. S/p Cardiology referral. Started on Metoprolol 25 mg daily. Chronic back pain 05/03/2023 Overview (05/03/2023): Stopped lyrica and baclofen with [facility]. Planning just emergency care attendant and tylenol prn Thyroiditis 02/03/2015 Hyperthyroidism 01/25/2015 documented as of this encounter (statuses as of 12/11/2024) Resolved Problems Problem Noted Date Diagnosed Date Resolved Date Acute vaginitis 05/09/2016 01/17/2018 Vitamin D deficiency 03/10/2016 018 Polyhydramnios, antepartum complication 09/29/2014 10/23/2014 Overview (09/29/2014): 09/24/14, POP = 27.6. Pt inpatient at [facility] currently. Attending (Dr. Sorensen) aware. INFORMATION 09/21/2014 10/23/2014 Overview (09/21/2014): Scan on 09/17/14; POP; 24.9 , normal first 03/03/201406/2015 Overview (09/29/2014): Failed 50 gm glucola. Passed 3 hr GTT. Baby: "Vitor". GBS negative. Asthma, mild persistent 07/25/201201/13 COSTOCHONDRITIS 01/25/2010 03/03/2014 Acute URI 01/25/2010 03/03/2014 Cough 01/25/2010 03/03/2014 Fever 01/25/2010 03/03/2014 Routine medical exam 01/25/2010 018 documented as of this encounter (statuses as of 12/11/2024) Immunizations Name Administration Dates Next Due DTP Vaccine 1994,1994,1994 DTaP Dipth/Tet/Acell Pertussis (Infanrix), Peds 03/22/1999,12/19/1995 HIB PRP-OMP, 3 dose (Pedvax) 05/09/1995, 1994,1994,1993 HPV Vaccine, 9-Valent 08/13/2019 10/13/2019 Hepatitis B, 0-19 yrs 05/09/1995,1994,06/16 MMR - Measles/Mumps/Rubella Vaccine 03/22/1999,0 05/09/1995 OPV - Polio Virus Vaccine (Oral) 996,1994,1994,1993 Seasonal Influenza Vac., MDV , IM, 0.5 mL (Fluzone) 07/15/2015 Seasonal Influenza, PF, 6 M & above, IM , (FluLaval or Fluzone) 08/06/2019,07/29/2018 Seasonal Influenza, QUAD, wi th Preserv, 6 mons & Above, 0.5 mL, IM 07/04/2017 TB Mery Test 12/19/1995 TDAP (age 10 [...] money to get more. Never true 04/30/2023 [place] Depression Scale Answer Date Recorded [place] Depression Scale Total 6 11/15/2023 The thought of harming myself has occurred to me . Never 11/15/2023 Childcare Answer Date Recorded Do you feel overwhelmed with taking care of a child, family member or friend? No 04/30/2023 Does your family need help f inding childcare? (Household - for ages 0-17 years) Not on file 04/30/2023 Clothing Answer Date Recorded Have you been unable to get clothing when it was really needed? No 04/30/2023 Is your family able to get c lothes or diapers when needed? (Household - for ages 0-17 years) Not on file 04/30/2023 Personal Safety Answer Date Recorded Do you feel unsafe or have concerns for your saf ety? No 04/30/2023 Do you have concerns for you r family's safety? (Household - for ages 0-17 years) Not on file 04/30/2023 Utilities Answer Date Recorded Do you have trouble paying y our heating, water, or electric bill? No 04/30/2023 Is your family able to pay t he heat, water, or electric bill? (Household - for ages 0-17 years) Not on file 04/30/2023 Does your family have access to good internet? (Household - for ages 0-17 years) Not on file 04/30/2023 Employment Status Answer Date Recorded Are you unemployed or without regular income? No 04/30/2023 Does the household have a [facility] source of income? (Household - for ages 0-17 years) Not on file 04/30/2023 Social Connections Answer Date Recorded How often do you feel lonely or isolated from th ose around you? Never 04/30/2023 Financial Resource Strain Answer Date R ecorded Do you have any trouble payi ng for your medications, or do you think you might in the future? No 04/30/2023 Does your family have troubl e paying for medicine? (Household - for ages 0-17 years) Not on file 04/30/2023 Transportation Needs Answer Date Record ed READ ONLY Do you have troubl e getting a ride to medical visits or work? Never True 04/30/2023 Does your family have a hard time getting a ride to doctors visits? (Household - for ages 0-17 years) Not on file 04/30/2023 Has lack of transportation k ept you from medical appointments, meetings, work, or from getting things needed for daily living? Check all that apply. (Adult - for ages 18 years and over) Not on file 04/30/2023 Do you (or your family) have trouble finding or paying for a ride (transportation)? (Household - for ages 0-17 years) Not on file 04/30/2023 Housing Stability Answer Date Recorded Do you currently live in a s helter or have no steady place to sleep at night? No 04/30/2023 READ ONLY Do you think you a re at risk of becoming homeless? No 04/30/2023 Does your family worry about paying for your home or becoming homeless? (Household - for ages 0-17 years) Not on file 0 04/30/2023 Are you homeless or worried that you might be in the future? (Adult - for ages 18 years and over) Not on file Are you (or your family) jonas eless or worried that you might be in the future? (Household - for ages 0-17 years) Not on file Food Insecurity Answer Date Recorded Do you need food for this week? No 04/30/2023 Are you able to get enough f ood for your family? (Household - for ages 0-17 years) Not on file 04/30/2023 Does your family need food t his week? (Household - for ages 0-17 years) Not on file 04/30/2023 Do you always have enough fo od for your family? 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 Answer Date of Assessment Author No 03/27/2024 4:21 PM EDT Amos Lawson RN * Are you blind or do you have serious difficulty seeing, even when wearing glasses? Answer Date of Assessment Author No 03/27/2024 4:21 PM EDT Amos Lawson RN * Do you have serious difficulty walking or climbing stairs? (5 years old or older) Answer Date of Assessment Author No 03/27/2024 4:21 PM EDT Amos Lawson RN * Do you have difficulty dressing or bathing? (5 years old or older) Answer Date of Assessment Author No 03/27/2024 4:21 PM EDT Amos Lawson RN * Because of a physical, mental, or emotional condition, do you have difficulty doing errands alone such as visiting a doctors office or shopping? (15 years old or older) Answer Date of Assessment Author No 03/27/2024 4:21 PM EDT Amos Lawson RN documented as of this encounter Mental Status * Because of a physical, mental, or emotional condition, do you have serious difficulty concentrating, remembering, or making decisions? (5 years old or older) Answer Entry Date Author No 03/27/2024 4:21 PM EDT Amos Lawson RN documented in this encounter Miscellaneous Notes * Telephone Encounter - Enma Rehman RN - 12/11/2024 1:10 PM EST Returned patients call. She states that she was told to move forward with botox. She has to have a referral for botox. She also reports that the patient representative with worker's comp. She states that theworkers comp paperwork has to say that the patient needs botox due to the work injury. I let her know that I will pass that on. * Telephone Encounter - Quirino Bolden OSA - 12/10/2024 7:41 AM EST Received pts return call stating she was looking to speak to Domitila. I advised pt due to the time the office would not be available yet. Pt asking for a call back once someone is available or will call back in if no answer. Please assist. Thank you. * Telephone Encounter - Enma Rheman RN - 12/09/2024 1:11 PM EST Called patient to return her call. Message left on her voicemail. * Telephone Encounter - Carline Aquino OSA - 12/09/2024 10:04 AM EST Patient is calling because she needs help with the referral for the botox, she called the one in [place] and they don't have anything in April. If someone can help her with this. She needs the locations again where she can call to get this done. Also wants to know if they received the fax from [employer]. * Telephone Encounter - Sujey Bronson LPN - 12/09/2024 9:41 AM EST Patient has questions about referral for botox. She states she was given a list of places that do it but she is having a hard time finding them and states she will need a referral sent. I am not familiar with this, please reach out to assist patient. * Telephone Encounter - Enma Rehman RN - 12/04/2024 3:55 PM EST Patient returned my call and states that she has been working with Dr. Corea for her workers compensation case. She states that the nurse case manager needs more information * Telephone Encounter - Enma Rehman RN - 12/04/2024 3:19 PM EST Returned patients call. Message left on her voicemail with a return phone number for her to call. * Telephone Encounter - Sujey Bronson LPN - 12/04/2024 1:06 PM EST Patient called stating her workers comp senior revenue accountant said they sent over paperwork that was filled out and they need more detail regarding it. She said they need this [place]endez. She also asked if she neededa referral to get her botox injection. She said she was given a list of places that do it but she is not sure if she needs a referral. documented in this encounter Plan of Treatment Upcoming Encounters Date Type Department Care Team (Late st Contact Info) Description 12/31/2024 2:50 PM EDT Office Visit [facility] [address] [place] [address] Rey Corea MD [address] [place] [address] 01/15/2025 4:00 PM EDT Office Visit [facility]cology[facility] [address] [place] [address] Natasha Gloria PA-C [address] [place] [address] 01/22/2025 10:00 AM EDT Office Visit [facility] [address] [place] [address] Jordon Marquis MD [address] [place] [address] Health Maintenance Due Date Last Done Comments HPV (Gardasil) Vaccine (3 - 3-dose series) 11/05/2019 08/13/2019, 08/04/2015 (Declined) Depression Screening 08/13/2020 08/13/2019 HPV/Co-Test 2024 COVID-19 Vaccine ( season) 2024 Influenza Vaccine (FLU shot) (#1) 2024 08/06/2019, 07/29/2018, 07/04/2017, Additional history exists TSH 09/19/2024 09/19/2023, 12/0 03/2023, 07/04/2023, Additional history exists Cervical Cancer Screening 05/03/2026 Pap Smear 05/03/2026 05/03/2023, 0405/2018, 08/04/2015, Additional history exists DTap/Tdap Vaccines (8 - Td or Tdap) 09/19/2033 09/19/2023, 09/12/2012, 03/22/1999, Additional history exists Hepatitis B Vaccine Completed 05/09/1995, 1994, 1994 MENINGOCOCCAL (MENACTRA/MENVEO) Aged Out No longer eligible based on patient's age to complete this topic Meningitis B Vaccine (Bexsero/Trumemba) Aged Out No longer eligible based on patient's age to complete this topic Pneumococcal Vaccine: Pediatrics (0 to 5 Years) and At-Risk Patients (6 to 18 Years and 19+ Years) Aged Out No longer eligib le based on patient's age to complete this topic documented as of this encounter Medical Devices Not on filedocumented as of this encounter Advance Directives * Full Code (Latest Code Status on File) Date Activated Date Inactivated Comments 03/27/2024 3:57 PM 03/29/2024 9:15 PM This order r eflects the patients wishes and were consensually agreed upon. Question Answer Comments Discussion of Advance Directives occurred with: Patient * Full Code Date Activated Date Inactivated Comments 09/28/2014 10:55 PM 09/30/2014 6:26 PM This orde r reflects the patients wishes and were consensually agreed upon. Care Teams Research Coordinator Relationship Specialty Start Date End Date Valentina Davila CRNP [address] [place] [address] PCP - General Nurse Practitioner 03/27/24 documented as of this encounter
--- OUTSIDE RECORDS SUMMARY | 2024-12-22 15:50 | External Medical Summary | Summary of Care ---
Author Name Unknown Organization [facility] Address [address] [place] [address] Phone [phone] Care Team Providers Care Construction Rep Name Role Phone Valentina Davila LAURA Primary Care Provider [phone] Reason for Visit * Reason Onset Date Comments Forms Request 12/04/2024 Encounter Details Date Type Department Care Team (Late st Contact Info) Description 12/04/2024 Telephone Urogynecology [facility] [address] [place] [address] Rey Corea MD [address] [place] [address] Forms Request Allergies No known active allergiesdocumented [...] lyrica and baclofen with KOP. Planning just patient centered care specialist and tylenol prn Thyroiditis 02/03/2015 Hyperthyroidism 01/25/2015 documented as of this encounter (statuses as of 12/11/2024) Resolved Problems Problem Noted Date Diagnosed Date Resolved Date Acute vaginitis 05/09/2016 01/17/2018 Vitamin D deficiency 03/10/2016 018 Polyhydramnios, antepartum complication 09/29/2014 10/23/2014 Overview (09/29/2014): 09/24/14, POP = 27.6. Pt inpatient at [facility] currently. Attending (Dr. Sorensen) aware. INFORMATION 09/21/2014 [...] money to get more. Never true 04/30/2023 [place] Depression Scale Answer Date Recorded [place] Depression Scale Total 6 11/15/2023 The thought [...] No 04/30/2023 Does the household have a [facility] source of income? 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 She states that [...] Thank you. * Telephone Encounter - Enma Rehman RN - 12/09/2024 1:11 PM EST Called patient to return her call. Message left on her voicemail. * Telephone Encounter - Carline Aquino OSA - 12/09/2024 10:04 AM EST Patient is calling because she needs help with the referral for the botox, she called the one in [place] and they don't have anything in April. If someone can help her with this. She needs the locations again where she can call to get this done. Also wants to know if they received the fax from [employer]. * Telephone Encounter - Sujey Bronson LPN [...] workers compensation case. She states that the clinical case manager needs more information * Telephone Encounter - Enma Rehman RN - 12/04/2024 3:19 PM EST Returned patients call. Message left on her voicemail with a return phone number for her to call. * Telephone Encounter - Sujey Bronson LPN - 12/04/2024 1:06 PM EST Patient called stating her workers comp fabric separator operator said they sent over paperwork that was [...] 12/31/2024 2:50 PM EDT Office Visit Urogynecology [facility] [address] [place] [address] Rey Corea MD [address] [place] [address] 01/15/2025 4:00 PM EDT Office Visit Gynecology/Obstetrics [facility] [address] [place] [address] Natasha Gloria PA-C [address] [place] [address] 01/22/2025 10:00 AM EDT Office Visit Gynecology/Obstetrics [facility] [address] [place] [address] Jordon Marquis MD [address] [place] [address] Health Maintenance Due Date Last Done Comments [...] and were consensually agreed upon. Care Teams Construction Rep Relationship Specialty Start Date End Date Valentina Davila CRNP [address] [place] [address] PCP - General Nurse Practitioner 03/27/24 documented as of this encounter
--- OUTSIDE RECORDS SUMMARY | 2024-12-22 15:50 | External Medical Summary | Summary of Care ---
Author Name Unknown Organization [facility] Address [address] [place] [address] Phone [phone] Care Team Providers Care Auto Air Conditioning Mechanic Name Role Phone Valentina Davila LAURA Primary Care Provider [phone] Reason for Visit * Reason Onset Date Comments Forms Request 12/04/2024 Encounter Details Date Type Department Care Team (Late st Contact Info) Description 12/04/2024 Telephone Urogynecology [facility] [address] [place] [address] Rey Corea MD [address] [place] [address] Forms Request Allergies No known active allergiesdocumented as of this encounter (statuses as of 12/09/2024) Medications buPROPion HCl ER (XL) 150 MG [...] as of this encounter (statuses as of 12/09/2024) Active Problems Problem Noted Date Diagnosed Date [...] lyrica and baclofen with KOP. Planning just coronary care unit nurse and tylenol prn Thyroiditis 02/03/2015 Hyperthyroidism 01/25/2015 documented as of this encounter (statuses as of 12/09/2024) Resolved Problems Problem Noted Date Diagnosed Date [...] as of this encounter (statuses as of 12/09/2024) Immunizations Name Administration Dates Next Due DTP [...] money to get more. Never true 04/30/2023 [place] Depression Scale Answer Date Recorded [place] Depression Scale Total 6 11/15/2023 The thought [...] 04/30/2023 Does the household have a [facility] source of income? 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 (5 years old or older) Answer Entry Date Author No 03/27/2024 4:21 PM EDT Amos Lawson RN documented in this encounter Miscellaneous Notes * Telephone Encounter - Carline Aquino OSA - 12/09/2024 10:04 AM EST Patient is calling because she needs help with the referral for the botox, she called the one in [place] and they don't have anything in April. If someone can help her with this. She needs the locations again where she can call to get this done. Also wants to know if they received the fax from [employer]. * Telephone Encounter - Sujey Bronson LPN [...] workers compensation case. She states that the protective services case worker needs more information * Telephone Encounter - Enma Rehman RN - 12/04/2024 3:19 PM EST Returned patients call. Message left on her voicemail with a return phone number for her to call. * Telephone Encounter - Sujey Bronson LPN - 12/04/2024 1:06 PM EST Patient called stating her workers comp library acquisitions technician said they sent over paperwork that was [...] 12/31/2024 2:50 PM EDT Office Visit [facility] [address] [place] [address] Rey Corea MD [address] [place] [address] 01/15/2025 4:00 PM EDT Office Visit Gynecology/Obstetrics [facility] [address] [place] [address] Natasha Gloria PA-C [address] [place] [address] 01/22/2025 10:00 AM EDT Office Visit Gynecology/[facility]s [facility] [address] [place] [address] Jordon Marquis MD [address] [place] [address] Health Maintenance Due Date Last Done Comments HPV (Gardasil) Vaccine (3 - 3-dose series) 11/05/2019 08/13/2019, 08/04/2015 (Declined) Depression Screening 08/13/2020 08/13/2019 HPV/Co-Test 2024 COVID-19 Vaccine ( season) 2024 Influenza Vaccine (FLU shot) (#1) 2024 08/06/2019, 07/29/2018, 07/04/2017, Additional history exists TSH 09/19/2024 09/19/2023, 03/2023, 07/04/2023, Additional history exists Cervical Cancer Screening 05/03/2026 Pap Smear 05/03/2026 05/03/2023, 01/13, 08/04/2015, Additional history exists DTap/Tdap Vaccines (8 [...] and were consensually agreed upon. Care Teams Auto Air Conditioning Mechanic Relationship Specialty Start Date End Date Valentina Davila CRNP [address] [place] [address] PCP - General Nurse Practitioner 03/27/24 documented as of this encounter
--- OUTSIDE RECORDS SUMMARY | 2024-12-22 15:50 | External Medical Summary | Summary of Care ---
Author Name Unknown Organization [facility] Address [address] [place] [address] Phone [phone] Care Team Providers Care Vault Maker Name Role Phone Valentina Davila LAURA Primary Care Provider [phone] Reason for Visit * Reason Onset Date Comments Forms Request 12/04/2024 Encounter Details Date Type Department Care Team (Late st Contact Info) Description 12/04/2024 Telephone Urogynecology [facility] [address] [place] [address] Rey Corea MD [address] [place] [address] Forms Request Allergies No known active allergiesdocumented as of this encounter (statuses as of 12/04/2024) Medications buPROPion HCl ER (XL) 150 MG [...] as of this encounter (statuses as of 12/04/2024) Active Problems Problem Noted Date Diagnosed Date [...] and baclofen with KOP. Planning just primary care pediatrician and tylenol prn Thyroiditis 02/03/2015 Hyperthyroidism 01/25/2015 documented as of this encounter (statuses as of 12/04/2024) Resolved Problems Problem Noted Date Diagnosed Date Resolved Date Acute vaginitis 05/09/2016 01/17/2018 Vitamin D deficiency 03/10/2016 018 Polyhydramnios, antepartum complication 09/29/2014 10/23/2014 Overview (09/29/2014): 09/24/14, POP = 27.6. [place] [facility] [place]. Attending (Dr. Sorensen) aware. INFORMATION 09/21/2014 10/23/2014 Overview (09/21/2014): Scan on 09/17/14; POP; 24.9 , normal first 03/03/201406/2015 Overview (09/29/2014): Failed 50 gm glucola. Passed 3 hr GTT. Baby: "Vitor". GBS negative. Asthma, mild persistent 07/25/201201/13 COSTOCHONDRITIS 01/25/2010 03/03/2014 Acute URI 01/25/2010 03/03/2014 Cough 01/25/2010 03/03/2014 Fever 01/25/2010 03/03/2014 Routine medical exam 01/25/2010 018 documented as of this encounter (statuses as of 12/04/2024) Immunizations Name Administration Dates Next Due DTP [...] to get more. Never true 04/30/2023 [place] Depression Scale Answer Date Recorded [place] Depression Scale Total 6 11/15/2023 The thought [...] No 04/30/2023 Does the household have a [facility] source of income? 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 She states that the field nurse case manager needs more information * Telephone Encounter - Enma Rehman RN - 12/04/2024 3:19 PM EST Returned patients call. Message left on her voicemail with a return phone number for her to call. * Telephone Encounter - Sujey Bronson LPN - 12/04/2024 1:06 PM EST Patient called stating her workers comp career development associate said they sent over paperwork that was [...] 12/31/2024 2:50 PM EDT Office Visit Urogynecology [facility] [address] [place] [address] Rey Corea MD [address] [place] [address] 01/15/2025 4:00 PM EDT Office Visit Gynecology/Obstetrics [facility] [address] [place] [address] Natasha Gloria PA-C [address] [place] [address] 01/22/2025 10:00 AM EDT Office Visit Gynecology/Obstetrics [facility] [address] [place] [address] Jordon Marquis MD [address] [place] [address] Health Maintenance Due Date Last Done Comments [...] and were consensually agreed upon. Care Teams Vault Maker Relationship Specialty Start Date End Date Valentina Davila CRNP [address] [employer] [place] [address] PCP - General Nurse Practitioner 03/27/24 documented as of this encounter
--- OUTSIDE RECORDS SUMMARY | 2024-12-22 15:50 | External Medical Summary | Summary of Care ---
Author Name Unknown Organization [facility] Address [address] [facility] [place] [address] Phone [phone] Care Team Providers Care Showcase Trimmer Name Role Phone Valentina Davila Primary Care Provider [phone] Reason for Visit * Reason Onset Date Comments Forms Request 12/04/2024 Encounter Details Date Type Department Care Team (Late st Contact Info) Description 12/04/2024 Telephone Urogynecology [facility] [address] [place] [address] Rey Corea MD [address] [place] [address] Forms Request Allergies No known active allergiesdocumented [...] lyrica and baclofen with KOP. Planning just care transport nurse and tylenol prn Thyroiditis 02/03/2015 Hyperthyroidism 01/25/2015 documented as of this encounter (statuses as of 12/09/2024) Resolved Problems Problem Noted Date Diagnosed Date Resolved Date Acute vaginitis 05/09/2016 01/17/2018 Vitamin D deficiency 03/10/2016 018 Polyhydramnios, antepartum complication 09/29/2014 10/23/2014 Overview (09/29/2014): 09/24/14, POP = 27.6. [place] [facility] [place] Attending (Dr. Sorensen) aware. INFORMATION 09/21/2014 [...] money to get more. Never true 04/30/2023 [place] Depression Scale Answer Date Recorded [place] Depression Scale Total 6 11/15/2023 The thought [...] No 04/30/2023 Does the household have a re lar source of income? 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 If someone can help her with this. She needs the locations again where she can call to get this done. Also wants to know if they received the fax from [email or web address]. * Telephone Encounter - Sujey Bronson LPN [...] workers compensation case. She states that the casework manager needs more information * Telephone Encounter - Enma Rehman RN - 12/04/2024 3:19 PM EST Returned patients call. Message left on her voicemail with a return phone number for her to call. * Telephone Encounter - Sujey Bronson LPN - 12/04/2024 1:06 PM EST Patient called stating her workers comp atm servicer said they sent over paperwork that was [...] 2:50 PM EDT Office Visit Urogynecology [facility] [address] [place] [address] Rey Corea MD [address] [place] [address] 01/15/2025 4:00 PM EDT Office Visit Gynecology/Obstetrics [facility] [address] [place] [address] Natasha Gloria PA-C [address] [place] [address] 01/22/2025 10:00 AM EDT Office Visit Gynecology/Obstetrics [facility] [place] [address] [place] [address] Jordon Marquis MD [address] [place] [address] Health Maintenance Due Date Last Done Comments [...] and were consensually agreed upon. Care Teams Showcase Trimmer Relationship Specialty Start Date End Date Valentina Davila CRNP [address] [place] [address] PCP - General Nurse Practitioner 03/27/24 documented as of this encounter
--- OUTSIDE RECORDS SUMMARY | 2024-12-22 15:50 | External Medical Summary | Summary of Care ---
Author Name Unknown Organization [facility] Address [address] [place] [address] Phone [phone] Care Team Providers Care [facility] Care [facility] Worker Name Role Phone Valentina Davila LAURA Primary Care Provider [phone] Reason for Visit * Reason Onset Date Comments Forms Request 12/04/2024 Encounter Details Date Type Department Care Team (Late st Contact Info) Description 12/04/2024 Telephone Urogynecology [facility] [address] [place] [address] Rey Corea MD [address] [place] [address] Forms Request Allergies No known active allergiesdocumented as of this encounter (statuses as of 12/10/2024) Medications buPROPion HCl ER (XL) 150 MG [...] as of this encounter (statuses as of 12/10/2024) Active Problems Problem Noted Date Diagnosed Date [...] lyrica and baclofen with KOP. Planning just complex care nurse and tylenol prn Thyroiditis 02/03/2015 Hyperthyroidism 01/25/2015 documented as of this encounter (statuses as of 12/10/2024) Resolved Problems Problem Noted Date Diagnosed Date Resolved Date Acute vaginitis 05/09/2016 01/17/2018 Vitamin D deficiency 03/10/2016 018 Polyhydramnios, antepartum complication 09/29/2014 10/23/2014 Overview (09/29/2014): 09/24/14, POP = 27.6. Pt inpatient at [facility] [place] currently. Attending (Dr. Sorensen) aware. INFORMATION 09/21/2014 10/23/2014 Overview (09/21/2014): Scan on 09/17/14; POP; 24.9 , normal first 03/03/201406/2015 Overview (09/29/2014): Failed 50 gm glucola. Passed 3 hr GTT. Baby: "Vitor". GBS negative. Asthma, mild persistent 07/25/201201/13 COSTOCHONDRITIS 01/25/2010 03/03/2014 Acute URI 01/25/2010 03/03/2014 Cough 01/25/2010 03/03/2014 Fever 01/25/2010 03/03/2014 Routine medical exam 01/25/2010 018 documented as of this encounter (statuses as of 12/10/2024) Immunizations Name Administration Dates Next Due DTP [...] to get more. Never true 04/30/2023 [place] Depression Scale Answer Date Recorded [place] Depression Scale Total 6 11/15/2023 The thought [...] No 04/30/2023 Does the household have a [facility] source [facility] income? 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 If someone can help her with this. She needs the locations again where she can call to get this done. Also wants to know if they received the fax from [employer] * Telephone Encounter - Sujey Bronson LPN [...] workers compensation case. She states that the high risk case manager needs more information * Telephone Encounter - Enma Rehman RN - 12/04/2024 3:19 PM EST Returned patients call. Message left on her voicemail with a return phone number for her to call. * Telephone Encounter - Sujey Bronson LPN - 12/04/2024 1:06 PM EST Patient called stating her workers comp billing administrator said they sent over paperwork that was [...] 12/31/2024 2:50 PM EDT [facility] [address] [place] [address] Rey Corea MD [address] [place] [address] 01/15/2025 4:00 PM EDT Office Visit Gynecology/Obstetrics [facility] [address] [place] [address] Natasha Gloria PA-C [address] [place] [address] 01/22/2025 10:00 AM EDT Office Visit Gynecology/Obstetrics [facility] [address] [place] [address] Jordon Marquis MD [address] [place] [address] Health Maintenance Due Date Last Done Comments [...] and were consensually agreed upon. Care Teams Child Day Care Center Worker Relationship Specialty Start Date End Date Valentina Davila CRNP [address] [place] [address] PCP - General Nurse Practitioner 03/27/24 documented as of this encounter
--- OUTSIDE RECORDS SUMMARY | 2024-12-22 15:50 | External Medical Summary | Summary of Care ---
Author Name Unknown Organization [facility] Address [address] [place] [address] Phone [phone] Care Team Providers Care Contract Engineer Name Role Phone Valentina Davila LAURA Primary Care Provider [phone] Reason for Visit * Reason Onset Date Comments Forms Request 12/04/2024 Encounter Details Date Type Department Care Team (Late st Contact Info) Description 12/04/2024 Telephone Urogynecology [facility] [address] [place] [address] Rey Corea MD [address] [place] [address] Forms Request Allergies No known active allergiesdocumented [...] and baclofen with KOP. Planning just care management assistant and tylenol prn Thyroiditis 02/03/2015 Hyperthyroidism 01/25/2015 documented as of this encounter (statuses as of 12/04/2024) Resolved Problems Problem Noted Date Diagnosed Date Resolved Date Acute vaginitis 05/09/2016 01/17/2018 Vitamin D deficiency 03/10/2016 018 Polyhydramnios, antepartum complication 09/29/2014 10/23/2014 Overview (09/29/2014): 09/24/14, POP = 27.6. [place] [facility] [place]. Attending (Dr. Sorensen) aware. INFORMATION 09/21/2014 [...] money to get more. 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 She states that the case assembler needs more information * Telephone Encounter - Enma Rehman RN - 12/04/2024 3:19 PM EST Returned patients call. Message left on her voicemail with a return phone number for her to call. * Telephone Encounter - Sujey Bronson LPN - 12/04/2024 1:06 PM EST Patient called stating her workers comp geriatric nurse practitioner said they sent over paperwork that was [...] 12/31/2024 2:50 PM EDT Office Visit Urogynecology [facility] [address] [place] [address] Rey Corea MD [address] [place] [address] 01/15/2025 4:00 PM EDT Office Visit Gynecology/Obstetrics [facility] [address] [place] [address] Natasha Gloria PA-C [address] [place] [address] 01/22/2025 10:00 AM EDT Office Visit Gynecology/Obstetrics [facility] [address] [place] [address] Jordon Marquis MD [address] [place] [address] Health Maintenance Due Date Last Done Comments [...] and were consensually agreed upon. Care Teams Contract Engineer Relationship Specialty Start Date End Date Valentina Davila CRNP [address] [employer] [place] [address] PCP - General Nurse Practitioner 03/27/24 documented as of this encounter
--- OUTSIDE RECORDS SUMMARY | 2024-12-22 15:50 | External Medical Summary | Summary of Care ---
Author Name Unknown Organization [facility] Address [address] [place] [address] Phone [phone] Care Team Providers Care Reactor Service Operator Name Role Phone Valentina Davila LAURA Primary Care Provider [phone] Reason for Visit * Reason Onset Date Comments Forms Request 12/04/2024 Encounter Details Date Type Department Care Team (Late st Contact Info) Description 12/04/2024 Telephone Urogynecology [facility] [address] [place] [address] Rey Corea MD [address] [place] [address] Forms Request Allergies No known active allergiesdocumented [...] lyrica and baclofen with KOP. Planning just health care facility administrator and tylenol prn Thyroiditis 02/03/2015 Hyperthyroidism 01/25/2015 documented as of this encounter (statuses as of 12/09/2024) Resolved Problems Problem Noted Date Diagnosed Date Resolved Date Acute vaginitis 05/09/2016 01/17/2018 Vitamin D deficiency 03/10/2016 018 Polyhydramnios, antepartum complication 09/29/2014 10/23/2014 Overview (09/29/2014): 09/24/14, POP = 27.6. [place] [facility] Attending (Dr. Sorensen) aware. INFORMATION 09/21/2014 [...] money to get more. Never true 04/30/2023 [place] Depression Scale Answer Date Recorded [place] Depression Scale Total 6 11/15/2023 The thought [...] No 04/30/2023 Does the household have a [facility] source of income? 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 If someone can help her with this. She needs the locations again where she can call to get this done. Also wants to know if they received the fax from [employer] comp. * Telephone Encounter - Sujey Bronson [...] workers compensation case. She states that the mattress spring encaser needs more information * Telephone Encounter - Enma Rehman RN - 12/04/2024 3:19 PM EST Returned patients call. Message left on her voicemail with a return phone number for her to call. * Telephone Encounter - Sujey Bronson LPN - 12/04/2024 1:06 PM EST Patient called stating her workers comp admissions manager rn said they sent over paperwork that was [...] Urogynecology [facility] [address] [place] [address] Rey Corea MD [address] [place] [address] 01/15/2025 4:00 PM EDT Office Visit Gynecology/Obstetrics [facility] [address] [place] [address] Natasha Gloria PA-C [address] [place] [address] 01/22/2025 10:00 AM EDT Office Visit Gynecology/Obstetrics [facility] [address] [place] [address] Jordon Marquis MD [address] [place] [address] Health Maintenance Due Date Last Done Comments [...] and were consensually agreed upon. Care Teams Reactor Service Operator Relationship Specialty Start Date End Date Valentina Davila CRNP [address] [place] [address] PCP - General Nurse Practitioner 03/27/24 documented as of this encounter
--- NOTE | 2024-12-22 16:53 | History & Physical Report ---
Date of Service December 22, 2024 Assessment & Plan (1) Neck muscle spasm: (2) Somatic dysfunction of spine, cervical: (3) Depression with anxiety: (4) Thyroiditis: Plan neck muscle spasmhistory/exam most consistent with muscle spasm and not cervical radiculopathyobviously continue to follow/serial exams and timeand if anything seems to involve more radicular, obviously workup further. At this point, however, it seems most consistent with trapezius and/or levator scapulae muscle spasm. Gentle OMT done as above. IV magnesium/Toradol/Tylenol ordered. Valium 10 mg 3 times daily for muscle relaxant purposes, Voltaren gel 4 times daily. Home once pain is improving. Workup further if her situation changes/evolves depression/anxietyHome meds hypothyroidismHome meds DVT prophylaxisambulation, can initiate pharmacologic if her hospital stay becomes prolonged. History of Present Illness Chief Complaint: Neck pain Primary Care Provider: Luisa Roldan MD patient is a very pleasant 29-year-old female known to me from prior admissions. She notes that yesterday she was reaching forand had abrupt onset of neck and shoulder pain. While she relates some degree of arm and hand tingling, this seems to be predominantly diffuse and circumferential not focal and dermatomal. The pain is largely bilateral probably left worse than right but predominantly in her neck and shoulders radiates to her mid back. She notes it is quite intense. She tried laying flat on the floor it did not get better. Tried taking muscle relaxant and did not get better. Called pain management, they felt there was not much they be able to do to help. Because the pain was so intense she came to the ER for further evaluation. Here she was given medications and was still not really feeling any better and we were asked to admit for ongoing pain control. Allergies Allergy/AdvReac Type Severity Reaction Status Date / Time aluminum [From Drysol] Allergy Intermediate Hives Verified 12/03/24 13:13 Home Medications Medication Instructions Recorded Confirmed Type bupropion HCl 300 mg 24 hr tablet, 300 mg PO QAM 08/17/23 12/22/24 History extended release diazepam 5 mg tablet (Valium) 15 mg PO HS PRN Anxiety 07/01/24 12/22/24 History cholecalciferol (vitamin D3) 25 25 mcg PO DAILY 07/03/24 12/22/24 History mcg (1,000 unit) capsule bupropion HCl 150 mg 24 hr tablet, 150 mg PO QAM 08/25/24 12/22/24 History extended release levothyroxine 150 mcg tablet 150 mcg PO DAILY #30 tabs 11/10/24 12/22/24 Rx ondansetron 4 mg disintegrating 4 mg PO Q6H PRN nausea and 12/03/24 12/22/24 Rx tablet vomiting #15 tabs thiamine HCl (vitamin B1) 100 mg 100 mg PO DAILY 12/03/24 12/22/24 History tablet (Vitamin B-1) cyclobenzaprine 10 mg tablet 10 mg PO HS 12/22/24 12/22/24 History melatonin 1 mg tablet 1 mg PO HS PRN Sleep 12/22/24 12/22/24 History Past Med/Surg History Problem List Somatic dysfunction of spine, cervical Neck muscle spasm Intractable back pain (Acute) Closed fracture of right distal radius (Acute) Pelvic pain Fatigue (Acute) Thyroiditis Tachycardia Renal colic on left side (Acute) Symptomatic PVCs Menorrhagia Lumbar paraspinal muscle spasm (Acute) Cervical paraspinal muscle spasm Neck pain (Acute) History of renal calculi (Acute) Nephrolithiasis (Acute) Right ovarian cyst Developmental dyslexia Depression with anxiety GERD (gastroesophageal reflux disease) History of breast lump/mass excision (01/17/22) Excision of left breast mass. Dr. 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 CURRENT STATUS Surgical History H/O lithotripsy History of laparoscopy S/P cystoscopy with ureteral stent placement 12/05/20 Dr. Lamont Ambrose- Cystoscopy, Left ureteroscopy, Laser lithotripsy, Stone basket extraction of stone, Left retrograde pyelogram, Left ureteral stent placement Nasal fracture Repair of nasal fracture Family History Mother No problems noted. Grandmother (Maternal) Lung cancer Oral cancer Other Cancer Hypertension Kidney stones Denies family history of Ovarian cancer Prostate cancer Heart disease Myocardial infarction Breast cancer Colorectal cancer Social History Smoking Status: Never smoker Second Hand Exposure: No; Hx Alcohol Use: No Hx Substance Use: No Preferred Language: Bahamian Communication Ability: Effective Visual Impairment: No Limitations Hearing Ability: Normal Sweatband Perforator Required: No Beliefs That Will Affect Care: None marital status: Single Current Living Situation: Spouse and Family Current Living Situation Comment: Boyfriend, 2 sons, boyfriend's daughter current occupational status: employed 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 HEENT normocephalic atraumatic mucous membranes moist. Breathing unlabored no accessory muscle use good effort. Skin without rashes pallor or icterus. Neuro shows cranial nerves II through XII be grossly intact gross sensory and motor are intactmost notably she shows no dermatomal sensory deficits bilateral upper extremities at all and her strength appears to be intact. Musculoskeletal/osteopathic shows left greater than right but bilateral upper cervical musculature predominantly in the region of trapezius and levator scapulae to be high tone, tender, decreased range of motiongentle unwinding, direct myofascial, and LAS done with some improvement in tissue texture, patient tolerated well. Results & Data Results & Data Vital Signs (Past 12 Hours) Vital Signs Temp Pulse Pulse Resp BP BP Pulse Ox 12/22/24 13:52 97 H 18 134/79 96 12/22/24 12:02 96 H 16 123/90 99 12/22/24 11:55 89 18 98 12/22/24 11:03 97.9 F 110 H 18 132/104 H 99 O2 Del Method 12/22/24 13:52 Room Air 12/22/24 12:02 Room Air 12/22/24 11:55 Room Air 12/22/24 11:03 Room Air Code Status & VTE Plan VTE Prophylaxis Plan VTE Prophylaxis will be ordered: No Reason for no VTE drug order: Treatment not indicated PG Care Time/CCT Total # of Minutes Spent Total Time Spent with Patient: Total time spent is greater than 50% in coordination of care (as documented) at patient's floor/unit and/or counseling patient: Coding Level of Care Code 63594 INT INP/OBS CARE 3/75MIN Diagnoses Neck muscle spasm M62.838 Somatic dysfunction of spine, cervical M99.01 Depression with anxiety F41.8 Thyroiditis E06.9
[2024-12-22] MEDS ORDERED: ALUMINUM/MAGNESIUM SUSP 30 ML UDC PO PRN (17:57)
[2024-12-22] MEDS ORDERED: POLYETHYLENE (MIRALAX) 17 GM PACK PO PRN (17:57)
[2024-12-22] MEDS ORDERED: MAGNESIUM HYDROXIDE SUSP 30 ML UDC PO PRN (17:57)
[2024-12-22] MEDS: DICLOFENAC SOD 1% GEL 100 GM TUBE EXT SCH (20:02)
[2024-12-22] MEDS: KETOROLAC TROMETHAMINE 15 MG/ML VIAL IV SCH (20:02)
[2024-12-22] MEDS: MAGNESIUM SULFATE / D5W 1 GM/100 ML BAG IV SCH (20:07)
[2024-12-22] MEDS: ACETAMINOPHEN 325 MG TAB PO SCH (20:13)
[2024-12-22] MEDS: OXcarbazepine 150 MG TABLET PO SCH (20:13)
[2024-12-22] MEDS: diazePAM 5 MG TABLET PO SCH (20:13)
[2024-12-22] MEDS: LACTATED RINGER'S 1,000 ML IV SCH (21:14)
[2024-12-22] MEDS: CYCLOBENZAPRINE HCL 10 MG TAB PO STA (21:53)
[2024-12-22 22:00] LABS: Magnesium 1.6 mg/dl (1.7-2.4)
[2024-12-23] MEDS: MELATONIN 3 MG TAB PO PRN (00:16)
[2024-12-23] MEDS: HYDROmorphone INJ 0.5 MG/0.5 ML SYR IV STA ×3 (00:38→20:35)
[2024-12-23] MEDS: LEVOTHYROXINE SODIUM 150 MCG TABLET PO SCH (05:19)
[2024-12-23] MEDS: THIAMINE HCL 100 MG TAB PO SCH (09:09)
[2024-12-23] MEDS: buPROPion XL 150 MG TABCR PO SCH (09:09)
[2024-12-23] MEDS: CHOLECALCIFEROL 25 MCG (1000 UNITS) TAB PO SCH (09:09)
[2024-12-23] MEDS: buPROPion XL 300 MG TABCR PO SCH (09:09)
[2024-12-23] MEDS: IBUPROFEN 600 MG TAB PO SCH (09:11)
[2024-12-23] MEDS: PANTOprazole 40 MG TAB PO SCH (09:16)
--- NOTE | 2024-12-23 11:48 | Hospitalist Progress Note ---
Date of Service December 23, 2024 Assessment & Plan (1) Neck muscle spasm: (2) Somatic dysfunction of spine, cervical: (3) Depression with anxiety: (4) Thyroiditis: Plan Patient is was admitted to significant neck pain began after she tried to reach for a bowl. Symptoms, hx, and exam suggestive of muscle spasm of trapezius and/or levator scapulae. Scheduled Tylenol, IBU, Valium, Voltaren gel, Lidocaine patches, and heat pad. Also given magnesium IV with little improvement. OMT done at the bedside by Dr. Terry. Low suspicion for radiculopathy. Did discuss with the patient how these spasms can take some time to fully resolve. Will continue current pain regimen and encourage ambulation and stretching as able. Will try to hold off from dilaudid to assess response to current regimen since she it's one she may continue after discharge. May discharge back home once pain improves. Depression/anxietyHome meds HypothyroidismHome meds DVT prophylaxisambulation Admission and Anticipated Discharge Date Admission Date: December 22, 2024 Supervising Physician Co-Signing Physician Notes I personally examined the patient and verified all lowry points of history and exam, discussed case, and agree with decision making with Dr Ralph brooks about the same. in back/shoulder about the same. nothing really helping all that [facility]/all that long vitals noted nad heent nc at mmm L sided musculature in region of trapezius high tone/tender/decreased ROM - direct myofascial/LAS - tissue texture improved some, pt tolerated well trapezius spasms/muscle spasms - ongoing multimodal management, meds, supportive care, OMT. otherwise as above Subjective Had pain overnight that was managed with Dilaudid, which lead to some relief for ~4 hours. This am, reports having 9/10 pain despite analgesics ordered. Has tried ambulating and moving but not many times due to her pain, which is still limited to trapezius area and some pain down her back. No fevers, chills, chest pain, SOB/PATTON, or other sxs. Physical Exam Physical Exam: GENERAL: AAOx3, afebrile, NAD CARDIO: RRR, nor/m/g PULMONARY: CTA bilaterally, no respiratory distress GI: soft, non distended, non tender EXTREMITIES: no swelling or calf tenderness in b/l LE MSK: tenderness with palpation of trapezius muscle and more mild tenderness in paraspinal muscles SKIN: no rashes Results & Data Results & Data Vital Signs (Past 12 Hours) Vital Signs Temp Pulse Resp BP Pulse Ox O2 Del Method 12/23/24 07:32 36.5 C 85 16 101/67 96 Room Air Resident Activity Tracking Resident Involvement: Resident Care Provided Care Provided: Adult Hospital Medicine
[2024-12-23] MEDS: ACETAMINOPHEN 500 MG TAB PO SCH (14:31)
[2024-12-23] MEDS: MAGNESIUM SULFATE / D5W 1 GM/100 ML BAG IV SCH (16:01)
[2024-12-23 16:14] VITALS: RESP 18
[2024-12-23] MEDS: IBUPROFEN 800 MG TAB PO SCH (17:03)
--- NOTE | 2024-12-23 19:06 | Billing Data ---
Date of Service December 23, 2024 Coding Level of Care Code 48297 SUB INP/OBS CARE MIN
[2024-12-24] MEDS: HYDROmorphone INJ 0.5 MG/0.5 ML SYR IV STA (04:59)
[2024-12-24] MEDS: LIDOCAINE 5% 1 PATCH TD STA (09:56)
--- NOTE | 2024-12-24 10:06 | Hospitalist Progress Note ---
Date of Service December 24, 2024 Assessment & Plan (1) Neck muscle spasm: (2) Somatic dysfunction of spine, cervical: (3) Depression with anxiety: (4) Thyroiditis: Plan Patient is was admitted to significant neck pain began after she tried to reach for a bowl. Symptoms, hx, and exam suggestive of muscle spasm of trapezius and/or levator scapulae. Scheduled Tylenol, IBU, Valium, Voltaren gel, Lidocaine patches, and heat pad. Also given magnesium IV with little improvement. Low suspicion for radiculopathy. Discussed with patient continuous use of Dilaudid for pain control could delay assessment of response to current analgesic regimen, which if effective can be continued at home after discharge since spasms can take couple of days to fully resolve. Patient agreed to try other non-opiate pain control methods and agreed to proceed with trigger point injections today. Informed consent completed and in patient's physical chart. After injecting 0.5 mL of Lidocaine 1% to 12 trigger point sites noted on exam, noted some release of muscle tension on exam but still some pain. Patient tolerated well. Will continue with current regimen and continue to monitor. May discharge back home once pain improves. Depression/anxietyHome meds; anxiety likely playing a role in muscle tension and recurrent muscle spasms. HypothyroidismHome meds DVT prophylaxisambulation Admission and Anticipated Discharge Date Admission Date: December 22, 2024 Supervising Physician Co-Signing Physician Notes I personally examined the patient and verified all lowry points of history and exam, discussed case, and agree with decision making with Dr Ralph brooks about the same. nothing really helping much. no morning stiffness. notes that she's had autoimmune w/u before. high stress. vitals noted nad heent nc at mmm L sided musculature in region of trapezius high tone/tender/decreased ROM - see procedure note below. breahting unlabored no accessory muscles good effort skin no rashes no pallor or icterus neuro no focal deficits trapezius spasms/muscle spasms - ongoing multimodal management, meds, supportive care, OMT periodically. suspect stress as a driving factor - discussed active stress management techniques. otherwise as above procedure note: trigger point injections informed consent, pt expressed good understanding having had this done multiple times area of trapezius, Cspine, Tspine and Lspine paraspinals cleansed thoroughly with EtOH 13 total trigger points dry needled then injected with a total of ~6.5ml 2% lidocaine without epi across region of C-T-Lspine paraspinals and trapezius b/l, R levator scap region - pt tolerated well Subjective Still feeling pain in upper back and paraspinal muscles Lumbar> Thoracic. Had 2 doses of Dilaudid overnight due to pain. Trying to ambulate around room but not much and goes to and from bathroom. No fevers, chills, chest pain, SOB/PATTON, or other new sxs. Physical Exam Physical Exam: GENERAL: AAOx3, afebrile, NAD CARDIO: RRR, nor/m/g PULMONARY: CTA bilaterally, no respiratory distress GI: soft, non distended, non tender EXTREMITIES: no swelling or calf tenderness in b/l LE MSK: tenderness with palpation of trapezius muscle (L>R) and more mild tenderness in paraspinal muscles lumbar > thoracic more so on the left side SKIN: no rashes Results & Data Results & Data Vital Signs (Past 12 Hours) Vital Signs Temp Pulse Resp BP Pulse Ox O2 Del Method 12/24/24 08:48 36.6 C 84 18 124/84 95 Room Air 12/23/24 22:31 36.7 C 84 18 103/71 97 Room Air Resident Activity Tracking Resident Involvement: Resident Care Provided Care Provided: Adult Hospital Medicine
[2024-12-24] MEDS: ONDANSETRON 4 MG OD TAB PO PRN (14:14)
[2024-12-24] MEDS: LIDOCAINE 1% LOCAL 20 ML VIAL INJ ONE ×2 (14:16→14:46)
--- NOTE | 2024-12-24 19:06 | Billing Data ---
Date of Service December 24, 2024 Coding Level of Care Code 90217 SUB INP/OBS CARE MIN
--- NOTE | 2024-12-24 19:07 | Hospitalist Progress Note ---
Date of Service December 24, 2024 Assessment & Plan Admission and Anticipated Discharge Date Admission Date: December 24, 2024 Results & Data Results & Data Vital Signs (Past 12 Hours) Vital Signs Temp Pulse Resp BP Pulse Ox O2 Del Method 12/24/24 15:10 98.1 F 72 18 118/79 94 Room Air 12/24/24 08:48 97.9 F 84 18 124/84 95 Room Air PG Care Time/CCT Total # of Minutes Spent Total Time Spent with Patient: Total time spent is greater than 50% in coordination of care (as documented) at patient's floor/unit and/or counseling patient: Coding Level of Care Code None Comment MSK trigger point injections x 13
[2024-12-24] MEDS: HYDROmorphone INJ 0.5 MG/0.5 ML SYR IV ONE (23:00)
[2024-12-25] MEDS: tiZANidine HCL 4 MG TABLET PO STA (03:04)
[2024-12-25 07:54] VITALS: BP 93/61; PULSE 74; TEMP 98.2; O2SAT 95
--- NOTE | 2024-12-25 11:57 | Discharge Summary ---
Date of Service December 25, 2024 Admission HPI Per Admitting Provider patient is a very pleasant 29-year-old female known to me from prior admissions. She notes that yesterday she was reaching forand had abrupt onset of neck and shoulder pain. While she relates some degree of arm and hand tingling, this seems to be predominantly diffuse and circumferential not focal and dermatomal. The pain is largely bilateral probably left worse than right but predominantly in her neck and shoulders radiates to her mid back. She notes it is quite intense. She tried laying flat on the floor it did not get better. Tried taking muscle relaxant and did not get better. Called pain management, they felt there was not much they be able to do to help. Because the pain was so intense she came to the ER for further evaluation. Here she was given medications and was still not really feeling any better and we were asked to admit for ongoing pain control. Admission Exam Per Admitting Provider In general she is awake and alert pleasant no distress. HEENT normocephalic atraumatic mucous membranes moist. Breathing unlabored no accessory muscle use good effort. Skin without rashes pallor or icterus. Neuro shows cranial nerves II through XII be grossly intact gross sensory and motor are intactmost notably she shows no dermatomal sensory deficits bilateral upper extremities at all and her strength appears to be intact. Musculoskeletal/osteopathic shows left greater than right but bilateral upper cervical musculature predominantly in the region of trapezius and levator scapulae to be high tone, tender, decreased range of motiongentle unwinding, direct myofascial, and LAS done with some improvement in tissue texture, patient tolerated well. Principal Diagnosis Muscle spasm Discharge Exam GENERAL: AAOx3, afebrile, NAD CARDIO: RRR, nor/m/g PULMONARY: CTA bilaterally, no respiratory distress GI: soft, non distended, non tender EXTREMITIES: no swelling or calf tenderness in b/l LE MSK: tenderness with palpation of trapezius muscle (L>R) and more mild tenderness in paraspinal muscles lumbar > thoracic more so on the left side SKIN: no rashes Discharge Data Allergies Allergy/AdvReac Type Severity Reaction Status Date / Time aluminum [From Drysol] Allergy Intermediate Hives Verified 12/03/24 13:13 Consultations 12/22/24 16:38 ED Decision to Admit Stat Hospital Course (1) Neck muscle spasm: (2) Somatic dysfunction of spine, cervical: (3) Depression with anxiety: (4) Thyroiditis: Plan Patient is was admitted to significant neck pain began after she tried to reach for a bowl. Symptoms, hx, and exam suggestive of muscle spasm of trapezius and/or levator sc apulae, which patient was informed may take some time to fully resolve. S/p Trigger point injections in 13 sites scattered along trapezius and bilateral paraspinal muscles in thoracic and lumbar region. Scheduled Tylenol, IBU, Valium, Voltaren gel, Lidocaine patches, and heat pad advised after discharge. Discussed other options such as physical therapy, OMT, and continued exercise and stretching. Can continue management of sxs with the above mentioned regimen at home, and likely will get better control of sxs there since it will be more comfortable for her and a less stressful environment. Depression/anxietyHome meds; anxiety likely playing a role in muscle tension and recurrent muscle spasms. Discussed how managing this component could help prevent recurrence of her sxs. HypothyroidismHome meds Total Time Total Time Spent Total Time Spent (In Minutes): As per attending attestation. Discharge Plan Discharge Items Patient Disposition: Home - Self-Care Reason For Visit: NECK MUSCLE SPASMS, INTRACTABLE PAIN Discharge Diagnosis: Muscle spasm Condition on Discharge: Good Activity: Per Instructions section Non-emergency contact: Primary Care Provider Call non-emergency contact if: your symptoms worsen and your temperature is above 101.5 Follow-up/Referrals: Luisa Roldan MD [Primary Care Provider] - 01/01/25 10:20 am Diet: Regular Addtl Attending Provider Instructions: You were admitted to the hospital due to significant cervical neck and back pain, which was found to be related to a spasm in your muscles. As discussed, this type of spasm can take some time to fully resolve. Therefore, we will be discharging you today with the following recommendations: continue with walking and other forms of exercise as able, continue with the stretches that were recommended to you by the physical therapists, and you could consider using the following medications for pain management: Tylenol 1000 mg by mouth every 8 hours Ibuprofen 800 mg every 8 hours; it would be advisable to use an antacid while on this medication to protect your stomach (Pepcid 20 mg once daily) Voltaren gel, which you should apply to the areas you feel pain every 6 hours Lidocaine patches, which you should replace every day; you can get Lidoderm 4% over the counter, which would be more affordable compared to the prescription ones Valium 10 mg every 8 hours In terms of follow up after your discharge, you can follow up with a physician that is trained in performing OMT to help you with your pain as well such as Dr. John Olivo who also has an office in [place] which is where you see your current PCP. Physical therapy is also an option if the ones mentioned above are not effective. A discharge summary will be sent to your primary care physician to ensure continuity of care. Please bring this discharge summary with you to your next office appointment so that your provider can review it at that time. Medications: Your medication list has been reviewed and reconciled upon discharge to ensure accuracy and continuity of care. An updated list of all your medications is included with your hospital discharge paperwork. Please review this list closely, and make note of any changes. CONTACT YOUR PRIMARY CARE PROVIDER if you experience any of the following: Worsening of symptoms Fever, chills, or fatigue Difficulty following your treatment plan, or difficulty taking medications CALL 911 OR GO TO THE EMERGENCY DEPARTMENT if you experience any of the following: Sudden, severe abdominal pain or nausea/vomiting Severe chest pain, or chest pain that radiates (moves) to your jaw or arm Sudden, severe shortness of breath or difficulty breathing Thank you for allowing us to participate in your care. Pending Studies at Discharge: No Stand-Alone Forms: My [facility], Smoking Cessation Medications and DC Order Prescriptions: New diclofenac sodium [Voltaren Arthritis Pain] 1 % Gel 4 g EXT QID Qty: 100 0RF Continued cholecalciferol (vitamin D3) 25 mcg (1,000 unit) capsule 25 mcg PO DAILY levothyroxine 150 mcg tablet 150 mcg PO DAILY Qty: 30 1RF diazepam [Valium] 5 mg tablet 15 mg PO HS PRN (Reason: Anxiety) bupropion HCl 150 mg tablet extended release 24 hr 150 mg PO QAM Rx Instructions: Take 150mg w/ 300mg to equal 450mg by mouth once every morning bupropion HCl 300 mg tablet extended release 24 hr 300 mg PO QAM Rx Instructions: Take 300mg w/ 150mg to equal 450mg by mouth once every morning thiamine HCl (vitamin B1) [Vitamin B-1] 100 mg Tablet 100 mg PO DAILY ondansetron 4 mg tablet,disintegrating 4 mg PO Q6H PRN (Reason: nausea and vomiting) Qty: 15 0RF cyclobenzaprine 10 mg tablet 10 mg PO HS melatonin 1 mg Tablet 1 mg PO HS PRN (Reason: Sleep) Discharge Orders: Discharge Order (Routine); Ordered 12/25/24 Ordered By: Marlene Rosas Admission Data Admit Date/Time: 12/24/24 15:26 Attending Provider: Dung Terry Admit Provider: Dung Terry Primary Care Provider: Luisa Roldan Other Providers: Dung Terry Supervising Physician Co-Signing Physician Notes I personally examined the patient and verified all lowry points of history and exam, discussed case, and agree with decision making with Dr Ralph brooks about the same. knows that trigger point injections will start to help over coming days. doesn't feel like there's anything we're doing that couldn't be done at home. vitals noted nad heent nc at mmm breathing unlabored no accessory muscles good effort skin no rashes no pallor or icterus neuro no focal deficits trapezius spasms/muscle spasms - s/p OMT, PT, meds, trigger point injections x 13 on 12/24. stable for home. outpt f/u. outpt OMT. suspect stress as a driving factor - discussed active stress management techniques. otherwise as above Resident Activity Tracking Resident Involvement: Resident Care Provided Care Provided: Adult Hospital Medicine
--- NOTE | 2024-12-25 13:29 | Billing Data ---
Date of Service December 25, 2024 Coding Level of Care Code 05496 IN/OBS DISCH 30 MIN/LESS
== END 2024-12-25 14:34 | disposition home or self-care (01) | DRG 556 ==
LOC: 3E 10:54 → ED 10:54 → 3E 17:47

== ENCOUNTER 2025-07-02 06:08 | Observation (INO) ==
--- NOTE | 2025-07-02 06:29 | Emergency Department Note ---
Impression & Plan Lower back pain, Sciatica, Vomiting ED Provider Note NAME: MARCELA MILIAN AGE: 30 SEX: F : 1995 ARRIVES VIA: Walk-In INFORMANT: [Patient] ED PROVIDER(S): [Lawrence Farmer MD] CHIEF COMPLAINT: Back pain HISTORY OF PRESENT ILLNESS: The patient is a 30-year-old female with chronic back issues. She has seen spinal surgery, pain management. She has medications that she uses chronically and, she has received pain management injections. She states that sometimes, she just has a flare. Starting yesterday, her mid lower back began becoming more painful and the pain radiates down into her left hip and left leg. This is a typical flare for her. There has been no fall, no trauma, no fever or chills. She is having so much pain that she is now vomiting. There has been no fever, no cough or congestion. No urinary complaints. The left leg is not weak. PMHx/PSHx/Social Hx: See Below PHYSICAL EXAM: GENERAL: Patient is in no acute distress. HEENT: No acute trauma, normocephalic atraumatic, mucous membranes moist, no nasal congestion. NECK: No stridor, no adenopathy, no meningismus, trachea is midline. LUNGS: Clear to auscultation bilaterally, no wheeze, no rhonchi, breath sounds equal. HEART: Without murmurs gallops or rubs, regular rate and rhythm. ABDOMEN: Soft, nontender, no peritonitis. EXTREMITIES: No cyanosis, full range of motion of all the joints without pain or difficulty. NEUROLOGIC: Oriented x 3, no acute motor or sensory deficits, no focal weakness. Patient does have 2/4 reflexes in the bilateral patella and Achilles. The great toe strength is intact and strong bilaterally. SKIN: No jaundice, no diaphoresis. Back: Tender in the area of the left lumbar and left SI joint. DIFFERENTIAL DIAGNOSIS: Sciatica, nerve impingement, disc disease, acute on chronic pain, muscle spasm, among others. EMERGENCY DEPARTMENT PROCEDURES: MEDICAL DECISION MAKING: There is no leukocytosis or concerning anemia. There is a normal platelet count. No renal failure or significant electrolyte abnormality. testing was negative. Urinalysis did not show findings of infection, some trace hematuria was seen although, the specimen was contaminated. On exam, the patient had good reflexes in the left lower extremity and good dorsiflexion of the left great toe. She was tender in the area of the left lumbar musculature and left SI joint. Movement made her pain worse. The patient received IV saline, IV Phenergan, IV Zofran, IV morphine. She was eventually given IV Toradol and a lidocaine patch. She was given IV Dilaudid, she was given IV Decadron and IV Tylenol. Despite multiple medications, the patient is still in significant discomfort. Her pain worsens with any movement, she felt markedly worse when she got off the stretcher to use the bathroom. The patient does not feel safe with discharge home, she has been admitted for this type of discomfort previously. Given the circumstances and her lack of improvement, given her vomiting, admission today seems warranted. I did speak with the patient and case management, the on-call hospitalist was consulted. Prior/Outside records/notes reviewed: None Imaging/x-ray results per my interpretation: Chronic Medical/Social conditions affecting care: Chronic back pain. Care/Management discussed with: Case management, the on-call hospitalist. Level of care consideration(s): After review of the information above and other included data: --I believe the patient requires escalation of care to admission DISPOSITION: Admission Past Med/Surg History Problem List (Updated 07/02/25 @ 15:01 by Lawrence Farmer MD) Vomiting (Acute) Sciatica (Acute) Lower back pain (Acute) Sacroiliitis Pelvic pain (Acute) Fatigue (Acute) Renal colic on left side (Acute) Symptomatic PVCs Menorrhagia Lumbar paraspinal muscle spasm (Acute) Cervical paraspinal muscle spasm History of renal calculi (Acute) Right ovarian cyst Developmental dyslexia GERD (gastroesophageal reflux disease) Medical History Closed fracture of right distal radius Thyroiditis Depression with anxiety 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 CURRENT STATUS Surgical History History of breast lump/mass excision (01/17/22) Excision of left breast mass. Dr. Jason 01/17/2022 H/O lithotripsy History of laparoscopy S/P cystoscopy with ureteral stent placement 12/05/20 Dr. Lamont Ambrose- Cystoscopy, Left ureteroscopy, Laser lithotripsy, Stone basket extraction of stone, Left retrograde pyelogram, Left ureteral stent placement Nasal fracture Repair of nasal fracture Family History Mother No problems noted. Grandmother (Maternal) Lung cancer Oral cancer Other Cancer Hypertension Kidney stones Denies family history of Ovarian cancer Prostate cancer Heart disease Myocardial infarction Breast cancer Colorectal cancer Social History Smoking Status: Never smoker Second Hand Exposure: No; Do You Dip or Chew Tobacco: No; Hx Alcohol Use: Yes Alcohol type: beer Hx Substance Use: No Preferred Language: Turkmen Communication Ability: Effective Visual Impairment: No Limitations Hearing Ability: Normal Skin Piler Required: No Beliefs That Will Affect Care: None marital status: Single Current Living Situation: Significant Other Current Living Situation Comment: BF and children current occupational status: employed 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 @ [employer] How many Children do You have: 1 Feels Safe at Home: Yes Childhood Exposure to Second-Hand Smoke: No Diet: regular during the past year weight has: increased > 10 lbs Physical Activity Frequency: Daily Seatbelt Use: always Sunscreen Use: Yes Assistive Devices: None Allergies Allergies Allergy/AdvReac Type Severity Reaction Status Date / Time aluminum [From Drysol] Allergy Intermediate Hives Verified 05/27/25 16:43 Home Meds Home Medications Medication Instructions Recorded Confirmed bupropion HCl 300 mg 24 hr tablet, 300 mg PO QAM 08/17/23 07/02/25 extended release cholecalciferol (vitamin D3) 25 25 mcg PO DAILY 07/03/24 07/02/25 mcg (1,000 unit) capsule bupropion HCl 150 mg 24 hr tablet, 150 mg PO QAM 08/25/24 07/02/25 extended release olanzapine 2.5 mg tablet 2.5 mg PO HS 01/22/25 07/02/25 cyanocobalamin (vitamin B-12) 1,000 mcg PO DAILY 01/27/25 07/02/25 1,000 mcg tablet (Vitamin B-12) diazepam 5 mg tablet 10 mg PO HS 01/27/25 07/02/25 magnesium oxide 500 mg PO DAILY 01/27/25 07/02/25 metoprolol succinate 25 mg 25 mg PO QAM 02/20/25 07/02/25 tablet,extended release 24 hr diclofenac sodium 1 % topical gel 4 g topical QID PRN Pain 04/22/25 07/02/25 ibuprofen 200 mg tablet (Advil) 200 mg PO Q6H PRN Pain 04/22/25 07/02/25 dexamethasone 2 mg tablet 2 mg PO DIRECTED 07/02/25 07/02/25 valacyclovir 1 gram tablet 2,000 mg PO DIRECTED PRN 07/02/25 07/02/25 (Valtrex) Outbreak Previous Rx's Medication Instructions Recorded ondansetron 4 mg disintegrating 4 mg PO Q6H PRN nausea and 12/03/24 tablet vomiting #15 tabs pregabalin 25 mg capsule (Lyrica) 25 mg PO TID #90 caps 04/01/25 Levoxyl 137 mcg tablet 137 mcg PO DAILY #30 tabs 06/19/25 (levothyroxine) Results & Data (ED) Vital Signs Vital Signs - 24 hr 07/02/25 06:13 07/02/25 07:46 07/02/25 09:03 Temperature 36.6 C 37.4 C Temperature Source Oral Oral Pulse Rate 105 H Pulse Rate [Right Finger] 104 H 87 Pulse Rhythm [Right Finger] Regular Regular Pulse Strength [Right Finger] Normal Normal Respiratory Rate 16 14 14 Respiratory Effort / Characteristics Non-Labored Spontaneous Non-Labored Respiratory Depth Normal Normal Normal Respiratory Pattern Regular Regular Blood Pressure 130/91 Blood Pressure [Right Arm] 109/79 126/82 Blood Pressure Mean 104 Blood Pressure Mean [Right Arm] 89 96 Blood Pressure Position [Right Arm] Lying Lying Pulse Oximetry 100 99 98 Oxygen Delivery Method Room Air Room Air Room Air Sepsis Recent Fever Within 48 Hours No Sepsis New/Unexplained Change in Mental Status No Sepsis Action Taken by Nursing No Action Required Home Medications Current Medication List: was personally reviewed by me Laboratory Data Attestation: I reviewed the patient's lab results. 07/02/25 06:39 07/02/25 06:39 Lab Results 07/02/25 07/02/25 Range/Units 06:36 06:39 WBC 5.16 (4.8-10.8) K/ul RBC 4.33 (4.20-5.40) M/uL Hgb 12.7 (12.0-16.0) g/dl Hct 37.5 (37.0-47.0) % MCV 86.6 (80.0-100.0) fL MCH 29.3 (25.0-34.0) pg MCHC 33.9 (32.0-36.0) g/dL RDW Std Deviation 39.8 (36.4-46.3) fL RDW Coeff of Baldo 12.6 (11.5-14.5) % Plt Count 260 (130-400) K/uL MPV 9.5 (9.4-12.4) fL Immature Gran % (Auto) 0.2 % Neut % (Auto) 54.4 % Lymph % (Auto) 34.5 % Pi[place] % (Auto) 9.5 % Eos % (Auto) 0.8 % Baso % (Auto) 0.6 % Neut # (Auto) 2.81 (1.40-6.50) K/uL Lymph # (Auto) 1.78 (1.20-3.40) K/uL [place] # (Auto) 0.49 (0.11-0.59) K/uL Eos # (Auto) 0.04 (0.00-0.50) K/uL Baso # (Auto) 0.03 (0.00-0.20) K/uL Immature Gran # (Auto) 0.01 (0.01-0.20) K/uL Sodium 140 (136-145) mmol/L Potassium 3.8 (3.5-5.1) mmol/L Chloride 105 (98-107) mmol/L Carbon Dioxide 26 (21-32) mmol/L Anion Gap 9 (3-11) BUN 11 (6-23) mg/dl Creatinine 0.56 L (0.6-1.2) mg/dl Est Cr Clr Drug Dosing 146.7 ml/min eGFR 125.05 BUN/Creatinine Ratio 19.6 (10-20) Glucose 103 H (70-99(Fasting)) mg/dl Calcium 8.5 L (8.6-10.3) mg/dl HCG, Qual Negative (Negative) Urine Color Yellow Urine Appearance Clear (Clear) Urine pH 8.0 H (4.5-7.5) Ur Specific [place] 1.024 (1.000-1.030) Urine Protein 1+ H (Negative) Urine Glucose (UA) Negative (Negative) Urine Ketones Negative (Negative) Urine Blood 3+ H (Negative) Urine Nitrite Negative (Negative) Urine Bilirubin Negative (Negative) Urine Urobilinogen Negative (Negative) Ur Leukocyte Esterase Trace H (Negative) Urine WBC (Auto) 0-5 (0-5) /hpf Urine RBC (Auto) 6-10 H (0-2) /hpf U Hyaline Cast (Auto) 0-2 (0-2) /lpf U Epithel Cells (Auto) >20 H (0-2) /hpf Urine Bacteria (Auto) None Seen (None Seen) Urine Comment Administered Medications Morphine Sulfate (Morphine Sulfate 2 Mg/Ml Carp) 2 mg IV Q4H PRN PRN Reason: Pain Stop: 07/16/25 10:26 Last Admin: 07/02/25 12:26 Dose: 2 mg Documented By: RUSSELL Discontinued Medications Dexamethasone Sodium Phosphate (DexamethasonePf 10 Mg/Ml Vial) 10 mg IV NOW ONE Stop: 07/02/25 06:26 Last Admin: 07/02/25 07:18 Dose: 10 mg Documented By: salvador Hydromorphone HCl (Hydromorphone Inj 0.5 Mg/0.5 Ml Syr) 0.5 mg IV NOW STA Stop: 07/02/25 09:28 Last Admin: 07/02/25 09:49 Dose: 0.5 mg Documented By: cheko Sodium Chloride (Nss) 1,000 mls @ 999 mls/hr IV .Q1H1M ONE Stop: 07/02/25 07:25 Last Infusion: 07/02/25 09:50 Dose: Infused Documented By: cheko Admin: 07/02/25 06:56 Dose: 999 mls/hr Documented By: CATHERINE Promethazine HCl (Phenergan) 6.25 mg in 50.25 mls @ 201 mls/hr IV NOW STA Stop: 07/02/25 06:39 Last Infusion: 07/02/25 09:50 Dose: Infused Documented By: cheko Admin: 07/02/25 07:18 Dose: 201 mls/hr Documented By: salvador Acetaminophen (Ofirmev) 1,000 mg in 100 mls @ 400 mls/hr IV NOW STA Stop: 07/02/25 06:39 Last Infusion: 07/02/25 09:50 Dose: Infused Documented By: cheko Admin: 07/02/25 07:25 Dose: 400 mls/hr Documented By: salvador Ketorolac Tromethamine (Ketorolac Tromethamine 15 Mg/Ml Vial) 15 mg IV NOW STA Stop: 07/02/25 06:26 Last Admin: 07/02/25 07:16 Dose: 15 mg Documented By: salvador Lidocaine (Lidocaine 5% 1 Patch) 1 patch TD NOW STA Stop: 07/02/25 06:26 Last Admin: 07/02/25 07:18 Dose: 1 patch Documented By: salvador Morphine Sulfate (Morphine Sulfate 4 Mg/Ml 1 Ml Carp\Vial) 4 mg IV NOW STA Stop: 07/02/25 06:26 Last Admin: 07/02/25 07:18 Dose: 4 mg Documented By: salvador Morphine Sulfate (Morphine Sulfate 4 Mg/Ml 1 Ml Carp\Vial) 4 mg IV NOW STA Stop: 07/02/25 08:24 Last Admin: 07/02/25 08:29 Dose: 4 mg Documented By: salvador Morphine Sulfate (Morphine Sulfate 2 Mg/Ml Carp) 2 mg IV NOW STA Stop: 07/02/25 13:17 Last Admin: 07/02/25 13:21 Dose: 2 mg Documented By: TIM Ondansetron HCl (Ondansetron Inj 2 Mg/Ml 2 Ml Vial) 4 mg IV NOW STA Stop: 07/02/25 06:26 Last Admin: 07/02/25 07:17 Dose: 4 mg Documented By: salvador Discharge Plan Visit Data Chief Complaint: Back Injury/Pain Stated Complaint: BACK PAIN ED Provider: Lawrence Farmer Discharge Problem: Lower back pain, Sciatica, Vomiting Patient Disposition: Admitted As Inpatient Condition: Fair Discharge Instructions Interventions: ED Discharge Assessment Last Done: 07/02/25 12:16 Discharge Problem: Lower back pain Qualifiers: Chronicity: unspecified Back pain laterality: left Sciatica presence: with sciatica Sciatica laterality: sciatica of left side Qualified Code(s): M54.42 - Lumbago with sciatica, left side Sciatica Qualifiers: Laterality: left Qualified Code(s): M54.32 - Sciatica, left side Vomiting Qualifiers: Vomiting type: unspecified Nausea presence: with nausea Qualified Code(s): R 11.2 - Nausea with vomiting, unspecified
[2025-07-02 06:55] LABS: Hematocrit (blood only) 37.5 % (37.0-47.0); Hemoglobin 12.7 g/dl (12.0-16.0); Immature Granulocytes # (auto) 0.01 K/uL (0.01-0.20); Immature Granulocytes % (auto) 0.2 %; Mean Corpuscular Hemoglobin 29.3 pg (25.0-34.0); Mean Corpuscular Volume 86.6 fL (80.0-100.0); Platelet Count 260 K/uL (130-400); RDW Standard Deviation 39.8 fL (36.4-46.3); Red Blood Count 4.33 M/uL (4.20-5.40); White Blood Count 5.16 K/ul (4.8-10.8)
[2025-07-02] MEDS: SODIUM CHLORIDE 0.9% 1,000 ML IV ONE (06:56)
[2025-07-02 07:14] LABS: Anion Gap 9.0 (3-11); Blood Urea Nitrogen 11.0 mg/dl (6-23); Calcium 8.5 mg/dl (8.6-10.3); Carbon Dioxide 26.0 mmol/L (21-32); Chloride 105.0 mmol/L (98-107); Creatinine Clr Calc Pharmacy 146.7 ml/min; Glucose 103.0 mg/dl (70-99(Fasting)); Potassium 3.8 mmol/L (3.5-5.1); Sodium 140.0 mmol/L (136-145)
[2025-07-02 07:15] LABS: Pregnancy Test, Serum Negative (Negative)
[2025-07-02] MEDS: KETOROLAC TROMETHAMINE 15 MG/ML VIAL IV STA (07:16)
[2025-07-02] MEDS: ONDANSETRON INJ 2 MG/ML 2 ML VIAL IV STA (07:17)
[2025-07-02] MEDS: PROMETHAZINE 6.25 MG/50.25 ML BAG IV STA (07:18)
[2025-07-02] MEDS: MoRPHine SULFATE 4 MG/ML 1 ML CARP\\VIAL IV STA ×2 (07:18→08:29)
[2025-07-02] MEDS: dexAMETHasone**PF** 10 MG/ML VIAL IV ONE (07:18)
[2025-07-02] MEDS: LIDOCAINE 5% 1 PATCH TD STA (07:18)
[2025-07-02 07:20] LABS: Appearance Urine Clear (Clear); Bacteria Urine Automated None Seen (None Seen); Cast Urine Automated 0-2 /lpf (0-2); Epithelial Cell Urine Auto >20 /hpf (0-2); Glucose Urine UA Negative (Negative); WBC Urine Automated 0-5 /hpf (0-5)
[2025-07-02] MEDS: ACETAMINOPHEN 1,000 MG/100 ML VIAL IV STA (07:25)
[2025-07-02] MEDS: HYDROmorphone INJ 0.5 MG/0.5 ML SYR IV STA (09:49)
--- NOTE | 2025-07-02 10:46 | History & Physical Report ---
Date of Service July 02, 2025 Assessment & Plan (1) Sacroiliitis: (2) Lumbar paraspinal muscle spasm: Plan This is a 30 year old female with past medical history of back pain, hypothyroidism, GERD who presented to the ED on 07/02/2025 with a chief complaint of low back pain. While in the ED, she was given 10mg IV Dexamethasone, 8mg IV Morphine, 0.5mg IV Dilaudid, IV Phenergan/Zofran, IV Tylenol, & lidocaine patch was placed. CBC/BMP unremarkable. No imaging obtained. Most recent MRI scanned into the system is from 04/23/2025 of lumbar spine which reveals mild degenerative changes of lumbar spine at L5-S1, including posterior annular fissuring and a small central disc protrusion. No significant spinal canal stenosis or neural foraminal narrowing. #Low back pain based on PE suspect pain is related to SI joint as she has had issues with this in the past. Most recent MRI in system 04/23/2025: mild degenerative changes of lumbar spine @ L5-S1, including posterior annular fissuring & small central disc protrusion. No significant spinal canal stenosis or neural foraminal narrowing. s/p 10mg IV Dexamethasone --> transition to 4mg IV dexamethasone BID until clinically improves then can titrate down. Scheduled Tylenol w/ prn Toradol + Morphine for breakthrough pain. Lidocaine patch continued Continue scheduled Lyrica Pain management consulted, appreciate recommendations --> she has experienced relief w/ injections in past & has been some time since her last SI injection. PT/OT consulted, appreciate recommendations. will obtain updated MRI from [facility] #Hypothyroidism - Continue Levoxyl, TSH checked 05/2025 WNL #Mental health - Bupropion, Valium, Zyprexa #Symptomatic PVCs - Metoprolol DVT prophylaxis: SCD's, hold chemical in event of injection from pain management. Code: full Case discussed w/ Dr. Ambrose at time of admission. History of Present Illness Primary Care Provider: Luisa Roldan MD This is a 30 year old female with past medical history of back pain, hypothyroidism, GERD who presented to the ED on 07/02/2025 with a chief complaint of low back pain. Damaris was seen and examined this morning. She reports that she has chronic back pain but over the last 24 hours this has acutely worsened. she states that she does not believe she did anything to worsen this. She states the pain is on the left side of her lumbar spine/gluteal region and it radiates down her left leg. She reports numbness/tingling of her left leg as well. She reports she has been nauseous and has vomited secondary to the pain. Presently, she reported her pain & nausea was controlled. She has seen pain management in the past & has had injections. She reports she has not had a lower back injection for quite some time. She did receive trigger point injections to her cervical region on her last hospitalization in December of 2024. She states that she was hospitalized for ~ 4 days last month for back pain at [facility] in which she had an updated MRI performed. She denies any CP, SOB, abdominal pain, changes in bowel habits, or urinary symptoms. While in the ED, she was given 10mg IV Dexamethasone, 8mg IV Morphine, 0.5mg IV Dilaudid, IV Phenergan/Zofran, IV Tylenol, & lidocaine patch was placed. CBC/BMP unremarkable. No imaging obtained. Most recent MRI scanned into the system is from 04/23/2025 of lumbar spine which reveals mild degenerative changes of lumbar spine at L5-S1, including posterior annular fissuring and a small central disc protrusion. No significant spinal canal stenosis or neural foraminal narrowing. Allergies Allergy/AdvReac Type Severity Reaction Status Date / Time aluminum [From Drysol] Allergy Intermediate Hives Verified 05/27/25 16:43 Home Medications Medication Instructions Recorded Confirmed Type bupropion HCl 300 mg 24 hr tablet, 300 mg PO QAM 08/17/23 07/02/25 History extended release cholecalciferol (vitamin D3) 25 25 mcg PO DAILY 07/03/24 07/02/25 History mcg (1,000 unit) capsule bupropion HCl 150 mg 24 hr tablet, 150 mg PO QAM 08/25/24 07/02/25 History extended release ondansetron 4 mg disintegrating 4 mg PO Q6H PRN nausea and 12/03/24 07/02/25 Rx tablet vomiting #15 tabs olanzapine 2.5 mg tablet 2.5 mg PO HS 01/22/25 07/02/25 History cyanocobalamin (vitamin B-12) 1,000 mcg PO DAILY 01/27/25 07/02/25 History 1,000 mcg tablet (Vitamin B-12) diazepam 5 mg tablet 10 mg PO HS 01/27/25 07/02/25 History magnesium oxide 500 mg PO DAILY 01/27/25 07/02/25 History metoprolol succinate 25 mg 25 mg PO QAM 02/20/25 07/02/25 History tablet,extended release 24 hr pregabalin 25 mg capsule (Lyrica) 25 mg PO TID #90 caps 04/01/25 07/02/25 Rx diclofenac sodium 1 % topical gel 4 g topical QID PRN Pain 04/22/25 07/02/25 History ibuprofen 200 mg tablet (Advil) 200 mg PO Q6H PRN Pain 04/22/25 07/02/25 History Levoxyl 137 mcg tablet 137 mcg PO DAILY #30 tabs 06/19/25 07/02/25 Rx (levothyroxine) dexamethasone 2 mg tablet 2 mg PO DIRECTED 07/02/25 07/02/25 History valacyclovir 1 gram tablet 2,000 mg PO DIRECTED PRN 07/02/25 07/02/25 History (Valtrex) Outbreak Past Med/Surg History Problem List (Updated 06/26/25 @ 00:07 by Joshua Shine) Sacroiliitis Pelvic pain (Acute) Fatigue (Acute) Renal colic on left side (Acute) Symptomatic PVCs Menorrhagia Lumbar paraspinal muscle spasm (Acute) Cervical paraspinal muscle spasm History of renal calculi (Acute) Right ovarian cyst Developmental dyslexia GERD (gastroesophageal reflux disease) Medical History Closed fracture of right distal radius Thyroiditis Depression with anxiety 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 CURRENT STATUS Surgical History History of breast lump/mass excision (01/17/22) Excision of left breast mass. Dr. Jason 01/17/2022 H/O lithotripsy History of laparoscopy S/P cystoscopy with ureteral stent placement 12/05/20 Dr. Lamont Ambrose- Cystoscopy, Left ureteroscopy, Laser lithotripsy, Stone basket extraction of stone, Left retrograde pyelogram, Left ureteral stent placement Nasal fracture Repair of nasal fracture Family History Mother No problems noted. Grandmother (Maternal) Lung cancer Oral cancer Other Cancer Hypertension Kidney stones Denies family history of Ovarian cancer Prostate cancer Heart disease Myocardial infarction Breast cancer Colorectal cancer Social History Smoking Status: Never smoker Second Hand Exposure: No; Hx Alcohol Use: No Hx Substance Use: No Preferred Language: Tunisian Communication Ability: Effective Visual Impairment: No Limitations Hearing Ability: Normal Care Attendant Required: No Beliefs That Will Affect Care: None marital status: Single Current Living Situation: Spouse and Family Current Living Situation Comment: Boyfriend, 2 sons, boyfriend's daughter current occupational status: employed 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 @ [employer] How many Children do You have: 1 Feels Safe at Home: Yes Childhood Exposure to Second-Hand Smoke: No Diet: regular during the past year weight has: increased > 10 lbs Physical Activity Frequency: Daily Seatbelt Use: always Sunscreen Use: Yes Assistive Devices: None Physical Exam Constitutional: WD/WN, vitals as above Eyes: PERRL, conjunctivae normal, anicteric sclerae Respiratory: normal respiratory effort, lungs clear to auscultation Cardiovascular: RRR, no murmur, no edema Gastrointestinal (Abdomen): normal bowel sounds, soft, nontender, no hepatosplenomegaly Musculoskeletal: no cyanosis or clubbing, extremities motor strength 5/5 Skin: no rashes, warm and dry Neurologic: patellar DTR's 2+ bilat, sensation intact and PERRL, EOMI, accommodation nl, no face palsy, no dysarthria Psychiatric: A+Ox3, euthymic affect Results & Data Results & Data Vital Signs (Past 12 Hours) Vital Signs Temp Pulse Pulse Resp BP BP Pulse Ox 07/02/25 09:03 87 14 126/82 98 07/02/25 07:46 37.4 C 104 H 14 109/79 99 07/02/25 06:13 36.6 C 105 H 16 130/91 100 O2 Del Method 07/02/25 09:03 Room Air 07/02/25 07:46 Room Air 07/02/25 06:13 Room Air Supervising Physician Co-Signing Physician Notes The patient was seen by me. The chart was reviewed. Case discussed with LION Coto. Agree with assessment and plan PG Care Time/CCT Total # of Minutes Spent Total Time Spent with Patient: Total time spent is greater than 50% in coordination of care (as documented) at patient's floor/unit and/or counseling patient: Coding Level of Care Code 53900 INT INP/OBS CARE 375MIN Diagnoses Sacroiliitis M46.1 Lumbar paraspinal muscle spasm M62.830
[2025-07-02] MEDS: MoRPHine SULFATE 2 MG/ML CARP IV PRN (12:26)
[2025-07-02] MEDS ORDERED: ONDANSETRON 4 MG OD TAB PO PRN (12:42)
[2025-07-02] MEDS: MoRPHine SULFATE 2 MG/ML CARP IV STA (13:21)
[2025-07-02] MEDS: BACLOFEN 10 MG TAB PO SCH (14:58)
[2025-07-02] MEDS: PREGABALIN 25 MG CAP PO SCH (14:58)
--- NOTE | 2025-07-02 15:15 | CT Scan Report ---
CT SCAN OF THE ABDOMEN AND PELVIS WITHOUT IV CONTRAST CLINICAL HISTORY: Left flank pain COMPARISON STUDY: Abdominal CT 02/27/2025. TECHNIQUE: CT scan of the abdomen and pelvis is performed from the lung bases to the proximal femora. Images are reviewed in the axial, sagittal, and coronal planes. IV contrast was not administered for this examination. A dose lowering technique was utilized adhering to the principles of ALARA. CT DOSE: 1222.82 mGy.cm FINDINGS: Lung bases: The heart is normal in size and without pericardial effusion. The lung bases are clear. Liver: The unenhanced liver is normal in size, contour, and attenuation. There is no intrahepatic lefty iary ductal dilatation. Gallbladder: Unremarkable. Spleen: Normal in size and attenuation. Pancreas: The unenhanced pancreas is grossly unremarkable. Adrenal glands: Unremarkable. Kidneys: The unenhanced kidneys are normal in size and without hydronephrosis. There are at least 3 n onobstructing left renal calculi which measure up to 5 mm. At least 4 nonobstructing right renal calc ramy are identified measuring up to 4 mm. No ureteral stone is seen. There is no evidence of contour d eforming renal mass lesion. Abdominal vasculature: The abdominal aorta is normal in course and caliber. Bowel: There is no bowel obstruction. The appendix is well-visualized and normal. Peritoneum: There is no intraperitoneal free air or abdominal ascites. There is a small fat-containin g umbilical hernia. Lymphadenopathy: None. Pelvic viscera: The bladder is decompressed and grossly unremarkable. The uterus and adnexa are pati l as visualized noting bilateral ovarian follicles. Skeletal structures: No lytic or blastic lesions are seen. IMPRESSION: 1. No acute infectious or inflammatory findings are identified in the abdomen or pelvis. 2. Bilateral nephrolithiasis. No ureteral stone is seen. 3. Additional findings as above. ACT 112: Negative or not required by law. Electronically signed by: Lawrence Olivier M.D. 07/02/2025 3:14 PM
[2025-07-02] MEDS: ACETAMINOPHEN 500 MG TAB PO SCH (16:38)
[2025-07-02] MEDS: KETOROLAC TROMETHAMINE 15 MG/ML VIAL IV PRN (17:31)
[2025-07-02] MEDS: OLANZAPINE 2.5 MG TAB PO SCH (20:15)
[2025-07-02] MEDS: REMOVE LIDODERM PATCH SCH (20:16)
[2025-07-02] MEDS: dexAMETHasone 4 MG in SYRINGE 0 ML IV SCH (20:17)
[2025-07-02] MEDS ORDERED: REMOVE LIDODERM PATCH SCH (21:00)
[2025-07-02] MEDS ORDERED: MoRPHine SULFATE 2 MG/ML CARP IV PRN (23:14)
[2025-07-02] MEDS ORDERED: KETOROLAC TROMETHAMINE 15 MG/ML VIAL IV PRN (23:18)
[2025-07-03] MEDS: MoRPHine SULFATE 4 MG/ML 1 ML CARP\\VIAL IV PRN ×3 (00:15→19:32)
[2025-07-03] MEDS: LEVOTHYROXINE SODIUM 137 MCG TABLET PO SCH (05:12)
[2025-07-03] MEDS ORDERED: MoRPHine SULFATE 2 MG/ML CARP IV PRN ×2 (08:03→17:23)
[2025-07-03] MEDS: LIDOCAINE 5% 1 PATCH TD SCH (08:04)
[2025-07-03] MEDS: CYANOCOBALAMIN (B-12) 500 MCG TABLET PO SCH (08:05)
[2025-07-03] MEDS: MAGNESIUM OXIDE 400 MG TAB PO SCH (08:05)
[2025-07-03] MEDS: CHOLECALCIFEROL 25 MCG (1000 UNITS) TAB PO SCH (08:05)
[2025-07-03] MEDS: METOPROLOL SUCC 25MG EXT REL TAB PO SCH (08:11)
[2025-07-03] MEDS: KETOROLAC TROMETHAMINE 15 MG/ML VIAL IV PRN (08:16)
[2025-07-03 11:25] LABS: Appearance Urine Clear (Clear); Bacteria Urine Automated 2+ (None Seen); Cast Urine Automated 0-2 /lpf (0-2); Glucose Urine UA Negative (Negative); RBC Urine Automated 0-2 /hpf (0-2); WBC Urine Automated 0-5 /hpf (0-5)
--- NOTE | 2025-07-03 14:47 | Hospitalist Progress Note ---
Date of Service July 03, 2025 Assessment & Plan (1) Sacroiliitis: (2) Lumbar paraspinal muscle spasm: Plan This is a 30 year old female with past medical history of back pain, hypothyroidism, GERD who presented to the ED on 07/02/2025 with a chief complaint of low back pain. While in the ED, she was given 10mg IV Dexamethasone, 8mg IV Morphine, 0.5mg IV Dilaudid, IV Phenergan/Zofran, IV Tylenol, & lidocaine patch was placed. CBC/BMP unremarkable. No imaging obtained. Most recent MRI scanned into the system is from 04/23/2025 of lumbar spine which reveals mild degenerative changes of lumbar spine at L5-S1, including posterior annular fissuring and a small central disc protrusion. No significant spinal canal stenosis or neural foraminal narrowing. #Low back pain based on PE suspect pain is related to SI joint as she has had issues with this in the past. Most recent MRI in system 04/23/2025: mild degenerative changes of lumbar spine @ L5-S1, including posterior annular fissuring & small central disc protrusion. No significant spinal canal stenosis or neural foraminal narrowing. s/p 10mg IV Dexamethasone --> transition to 4mg IV dexamethasone BID until clinically improves then can titrate down. Scheduled Tylenol w/ Morphine for breakthrough pain. --> adjusted to Morphine q6h now that she received trigger point injections.. Plan to switch to PO Tramadol prn tomorrow for breakthrough pain. Reduce narcotic burden given no overt causes of back pain on imaging Lidocaine patch continued Pain management consulted --> s/p gluteal trigger point injections. Recommend discontinuing IV Toradol + IV steroids. Recommended outpatient referral to [facility]. Lyrica up titrated to 50mg TID. PT/OT consulted, appreciate recommendations. #Hypothyroidism - Continue Levoxyl, TSH checked 05/2025 WNL #Mental health - Bupropion, Valium, Zyprexa #Symptomatic PVCs - Metoprolol DVT prophylaxis: SCD's, hold chemical in event of injection from pain management. Code: full Admission and Anticipated Discharge Date Admission Date: July 02, 2025 Supervising Physician Co-Signing Physician Notes The patient was not seen by me. The chart was reviewed. Case discussed with LION Coto. Agree with assessment and plan Subjective Damaris was seen and examined this afternoon. She reports that she is still havi ng significant low back pain. Reports that the pain medication is minimally helping. She was looking forward to seeing pain management this afternoon. Physical Exam Physical Exam: General: NAD, VS as above Resp: normal respiratory effort Extremities: Moves all extremities, no edema Neuro: A&O x3 Skin: intact, no lesions noted Results & Data Results & Data Vital Signs (Past 12 Hours) Vital Signs Temp Pulse Resp BP BP Pulse Ox O2 Del Method 07/03/25 08:11 112/74 07/03/25 07:44 36.5 C 77 18 99/61 L 98 Room Air PG Care Time/CCT Total # of Minutes Spent Total Time Spent with Patient: Total time spent is greater than 50% in coordination of care (as documented) at patient's floor/unit and/or counseling patient: Coding Level of Care Code 29716 SUB INP/OBS CARE 2/35MIN Diagnoses Sacroiliitis M46.1 Lumbar paraspinal muscle spasm M62.830
--- NOTE | 2025-07-03 16:33 | Pain Management Consultation ---
Date of Consultation July 03, 2025 Assessment & Plan (1) Lower back pain: Back pain laterality: left Chronicity: unspecified Sciatica laterality: sciatica of left side Sciatica presence: with sciatica Qualified Code(s): M54.42 - Lumbago with sciatica, left side (2) Sacroiliitis: (3) Lumbar paraspinal muscle spasm: (4) Myofascial pain syndrome: Plan 1. Full examination performed in patient room. No evidence of sacroiliitis based on provocative testing. No indication for repeat SI joint injections at this time 2. Patient is found to have myofascial spasm in the gluteal groups bilaterally. No specific trigger points in the lumbosacral region. We did discuss trigger point injections versus alternative treatments. After lengthy discussion on risk versus benefit, patient wishes to proceed with trigger point injections. These were performed at bedside. Please see procedure note 3. Continue with oral baclofen as needed for muscle spasm 4. Recommend discontinuing IV ketorolac and convert to oral if needed. It should be noted that no ketorolac was used with trigger point injections. 5. At this point there is no indication for any further interventional procedures from the pain management group. 6. Not sure there is any benefit to dexamethasone. Would recommend discontinuing steroids. 7. Discussion with patient regarding outpatient referral to specialized center such as [facility] or [facility] for further evaluation of pain syndrome. Unfortunately, we have nothing further to offer from our perspective. Thank you very much for including us in the care of this patient. The pain management team will sign off at this time. Please feel free to reconsult or call with questions [facility] Provider: Lawrence Bower PA-C Diagnosis: Myofascial pain with spasm Medications Used: Ropivacaine 0.5% 7 ml Kenalog 1 ml (40 mg/1ml) Ketorolac was not used as patient is receiving IV ketorolac IV every 6 hours as needed Side/Level injected: Left gluteus lorrie x 3, left gluteus medius x 2, left gluteus minimus x 1, right gluteus lorrie x 3, right gluteus medius x 1 Prior to starting, the Patients diagnosis and the procedure were reviewed with the patient in detail. Possible risks and complications including infection, bleeding, damage to surrounding structures and increased pain were discussed. Alternative therapies were also reviewed. Patients questions were answered and they agreed to proceed. Informed consent was obtained. Allergies and medication list was reviewed. The patient was placed in a prone position. Immediately prior to starting the procedure, a ``time out was conducted with the staff and the patient where the patient was identified, proposed procedure was verified, consent was reviewed and the proper site for the planned procedure was identified. Patient was not given any intravenous sedation and constant verbal contact was maintained throughout the procedure. On examination, no signs of skin breakdown or infection were noted at the injection site. The site was cleansed with ChloraPrep. After the application of either chloraprep, duraprep, and/or betadine (depending on patient's allergy status), three minutes time elapsed prior to the start of the procedure to reduce risk of fire. Palpation over the site produced patients typical pain. Using an 1.5 inch 25-gauge needle, the above muscles were injected in similar fashion after negative aspiration for blood with 1-2 mL of a combination of 7 mL of 0.5% ropivacaine-MPF containing 40 mg of Kenalog (1 ml) without complication. Needle was withdrawn and hemostasis noted. Patient tolerated the procedure uneventfully without complications. History of Present Illness Attending Physician: Anshul Ambrose MD History of Present Illness Attending: Dr. Nava Ms. Leyva is a 30-year-old female known to our pain clinic from previous lumbalgia and sacroiliitis. She reports that she has pain in her lumbosacral region that radiates down her left buttock and into her left leg. She reports that sometimes she has some pain in her toes of her left leg. She occasionally has some pain in her right buttock but primarily pain is restricted the left side. She reports pain is constant and aching. With specific movements she can have sharp stabbing pain. She reports the pain is aggravated prolonged standing, prolonged walking, lifting. She does get benefit from a heating pad which she uses frequently as well as sleeping on her stomach and repositioning. She was started on pregabalin (Lyrica) and reports that she had benefit from that. Patient also reports some improvement in pain with muscle relaxant such as baclofen and anti-inflammatories like Toradol. Patient has undergone chiropractic manipulation which worsened her pain. She also had no improvement with physical therapy. She has had multiple lumbar spine imaging studies completed which all show stability. She also has been seen by [facility] as well as orthopedics who recommended conservative treatment. Patient reports that she has had difficulty with Lyrica in the past secondary to lower extremity edema. This has been managed in the past with furosemide. Patient reports pain at worst 8/10 and at best 5/10. Most recent lumbar spine MRI 04/23/2025 is stable with minimal retrolisthesis of L5 on S1 and mild disc space narrowing at L5-S1 there is no significant spinal canal stenosis and neuroforaminal narrowing. Lumbar Spine MRI 04/23/[address] 03/22/[address] 01/17/2025 Lumbar spine MRI 09/09/2024 Lumbar spine x-ray 01/11/2023 Lumbar spine x-ray 08/13/2022 Lumbar spine MRI 02/12/[address] 12/18/2021 Lumbar spine MRI 12/17/2021 Lumbar spine MRI 09/21/2021 Cervical spine MRI 09/21/2021 Previous interventions: Physical therapy, chiropractic manipulation, sacroiliac joint injection, L5-S1 interlaminar epidural steroid injection, trigger point injections, gabapentin, ketorolac, ibuprofen, acetaminophen, lidocaine patch, opiates, steroid tapers, bupropion. Patient denies any bowel or bladder incontinence. No saddle anesthesia. No unusual bleeding or bruising. Patient is not on and a anticoagulants or antiplatelet agents. No other constitutional complaints. Allergies Allergy/AdvReac Type Severity Reaction Status Date / Time aluminum [From Drysol] Allergy Intermediate Hives Verified 05/27/25 16:43 Home Medications Medication Instructions Recorded Confirmed Type bupropion HCl 300 mg 24 hr tablet, 300 mg PO QAM 08/17/23 07/02/25 History extended release cholecalciferol (vitamin D3) 25 25 mcg PO DAILY 07/03/24 07/02/25 History mcg (1,000 unit) capsule bupropion HCl 150 mg 24 hr tablet, 150 mg PO QAM 08/25/24 07/02/25 History extended release ondansetron 4 mg disintegrating 4 mg PO Q6H PRN nausea and 12/03/24 07/02/25 Rx tablet vomiting #15 tabs olanzapine 2.5 mg tablet 2.5 mg PO HS 01/22/25 07/02/25 History cyanocobalamin (vitamin B-12) 1,000 mcg PO DAILY 01/27/25 07/02/25 History 1,000 mcg tablet (Vitamin B-12) diazepam 5 mg tablet 10 mg PO HS 01/27/25 07/02/25 History magnesium oxide 500 mg PO DAILY 01/27/25 07/02/25 History metoprolol succinate 25 mg 25 mg PO QAM 02/20/25 07/02/25 History tablet,extended release 24 hr pregabalin 25 mg capsule (Lyrica) 25 mg PO TID #90 caps 04/01/25 07/02/25 Rx diclofenac sodium 1 % topical gel 4 g topical QID PRN Pain 04/22/25 07/02/25 History ibuprofen 200 mg tablet (Advil) 200 mg PO Q6H PRN Pain 04/22/25 07/02/25 History Levoxyl 137 mcg tablet 137 mcg PO DAILY #30 tabs 06/19/25 07/02/25 Rx (levothyroxine) dexamethasone 2 mg tablet 2 mg PO DIRECTED 07/02/25 07/02/25 History valacyclovir 1 gram tablet 2,000 mg PO DIRECTED PRN 07/02/25 07/02/25 History (Valtrex) Outbreak Patient History Medical History Closed fracture of right distal radius Thyroiditis Depression with anxiety 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 CURRENT STATUS Surgical History History of breast lump/mass excision (01/17/22) Excision of left breast mass. Dr. Jason 01/17/2022 H/O lithotripsy History of laparoscopy S/P cystoscopy with ureteral stent placement 12/05/20 Dr. Lamont Ambrose- Cystoscopy, Left ureteroscopy, Laser lithotripsy, Stone basket extraction of stone, Left retrograde pyelogram, Left ureteral stent placement Nasal fracture Repair of nasal fracture Family History Mother No problems noted. Grandmother (Maternal) Lung cancer Oral cancer Other Cancer Hypertension Kidney stones Denies family history of Ovarian cancer Prostate cancer Heart disease Myocardial infarction Breast cancer Colorectal cancer Social History Smoking Status: Never smoker Second Hand Exposure: No; Do You Dip or Chew Tobacco: No; Hx Alcohol Use: Yes Alcohol type: beer Hx Substance Use: No Preferred Language: Telugu Communication Ability: Effective Visual Impairment: No Limitations Hearing Ability: Normal Broomcorn Scraper Required: No Beliefs That Will Affect Care: None marital status: Single Current Living Situation: Significant Other Current Living Situation Comment: BF and children current occupational status: employed 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 Memory appears grossly intact, resting comfortably on examination Skin: No evidence of edema, erythema or skin breakdown. No rashes, lesions, ulcers, or induration noted. Musculoskeletal: Head is normocephalic and atraumatic, gait normal. Lumbar: Lordotic curve: Loss of lumbar Lordosis Range of motion is decreased with extension Tenderness: Tender over the axial midline in the lumbosacral region Facet provocation: Negative bilaterally Straight leg raise: Negative bilaterally Strength: Strength is equal bilaterally with 5 out of 5 strength in all planes Sensation of lower extremities: Intact bilaterally Deep tendon reflexes: Rated at 2/4 in bilateral patellar and Achilles tendons Myofascial spasm: Positive mild spasm in the bilateral gluteus lorrie muscle groups. Positive spasm in the left gluteus medius and gluteus minimus groups. No piriformis pain with deep palpation. No significant pain in the lumbosacral muscle groups. Greater trochanters: Nontender bilaterally Sacroiliac joints: Nontender bilaterally. Negative compression test. Iliac crest seem equal Pathologic reflexes noted: None Neuro: No focal neurological deficits appreciated. Results (Pain Clinic) Laboratory Review Additional Comments: 07/02/25 06:39 07/02/25 06:39 Previous Records Review Previous Records: personally reviewed by me
[2025-07-03] MEDS: MoRPHine SULFATE 2 MG/ML CARP IV STA (17:35)
[2025-07-03] MEDS: PREGABALIN 50 MG CAP PO SCH (20:38)
[2025-07-03] MEDS: BACLOFEN 10 MG TAB PO SCH (20:39)
[2025-07-04] MEDS: DICLOFENAC SOD 1% GEL 100 GM TUBE EXT PRN (00:04)
[2025-07-04 07:15] VITALS: BP 119/75; PULSE 66; RESP 16; TEMP 97.7; O2SAT 99
[2025-07-04] MEDS: POLYETHYLENE (MIRALAX) 17 GM PACK PO PRN (07:30)
--- NOTE | 2025-07-04 09:33 | Discharge Summary ---
Discharge Summary Date of Service July 04, 2025 Principal Dx & Hospital Course #1 = Principal Diagnosis (1) Sacroiliitis: (2) Lumbar paraspinal muscle spasm: Plan This is a 30 year old female with past medical history of back pain, hypothyroidism, GERD who presented to the ED on 07/02/2025 with a chief complaint of low back pain. #Low back pain Most recent MRI in system 04/23/2025: mild degenerative changes of lumbar spine @ L5-S1, including posterior annular fissuring & small central disc protrusion. No significant spinal canal stenosis or neural foraminal narrowing. Reduce narcotic burden given no overt causes of back pain on imaging Pain management consulted --> s/p gluteal trigger point injections. Recommend discontinuing IV Toradol + IV steroids. Recommended outpatient referral to [facility] care such as [facility] or [facility]. Lyrica up titrated to 50mg TID. Discharged home on: recommending continuing Tylenol 1000mg q 8h scheduled. Baclofen 25mg TID, Lyrica 50mg TID and Tramadol 50mg every 6 hours as needed for breakthrough pain. Recommend follow up w/ PCP for further aid in referral to tertiary care center for pain management. PT/OT consulted --> patient reported she was independent. #Hypothyroidism - Continue Levoxyl, TSH checked 05/2025 WNL #Mental health - Bupropion, Valium, Zyprexa #Symptomatic PVCs - Metoprolol Discharged home 07/04. Notes For Next Care Provider Needs a referral to tertiary care center for pain management. Admission HPI Per Admitting Provider This is a 30 year old female with past medical history of back pain, hypothyroidism, GERD who presented to the ED on 07/02/2025 with a chief complaint of low back pain. Damaris was seen and examined this morning. She reports that she has chronic back pain but over the last 24 hours this has acutely worsened. she states that she does not believe she did anything to worsen this. She states the pain is on the left side of her lumbar spine/gluteal region and it radiates down her left leg. She reports numbness/tingling of her left leg as well. She reports she has been nauseous and has vomited secondary to the pain. Presently, she reported her pain & nausea was controlled. She has seen pain management in the past & has had injections. She reports she has not had a lower back injection for quite some time. She did receive trigger point injections to her cervical region on her last hospitalization in December of 2024. She states that she was hospitalized for ~ 4 days last month for back pain at [facility] in which she had an updated MRI performed. She denies any CP, SOB, abdominal pain, changes in bowel habits, or urinary symptoms. While in the ED, she was given 10mg IV Dexamethasone, 8mg IV Morphine, 0.5mg IV Dilaudid, IV Phenergan/Zofran, IV Tylenol, & lidocaine patch was placed. CBC/BMP unremarkable. No imaging obtained. Most recent MRI scanned into the system is from 04/23/2025 of lumbar spine which reveals mild degenerative changes of lumbar spine at L5-S1, including posterior annular fissuring and a small central disc protrusion. No significant spinal canal stenosis or neural foraminal narrowing. Discharge Exam General: NAD, VS as above Resp: normal respiratory effort, Extremities: Moves all extremities, no edema Neuro: A&O x3, Skin: intact, no lesions noted Discharge Plan Discharge Items Patient Disposition: Home - Self-Care Reason For Visit: BACK PAIN Discharge Diagnosis: Back pain Condition on Discharge: Fair Activity: Resume your previous activity Non-emergency contact: Primary Care Provider Call non-emergency contact if: you have any medication questions, your symptoms worsen and your pain is worsening Follow-up/Referrals: Luisa Roldan MD [Primary Care Provider] - 07/10/25 11:00 am Diet: Regular Addtl Attending Provider Instructions: Ms. Leyva, You were recently hospitalized for lower back pain. You were evaluated by pain management & had trigger point injections done on your lower back region. Medications: Your medication list has been reviewed and reconciled upon discharge to ensure accuracy and continuity of care. An updated list of all your medications is in cluded with your hospital discharge paperwork. Please review this list closely, and make note of any changes. Tramadol 50mg has been sent to your pharmacy. Please use this every 6 hours as needed for breakthrough pain. Continue on Tylenol 1000mg every 8 hours scheduled to help stay ahead of pain. Your Lyrica has been increased to 50mg three times daily. You were placed on baclofen 25mg three times daily to help with muscle spasms. - please continue on this scheduled. You may continue to use a heating pad to your lower back to help with the pain. Take your medications as instructed; do not skip a dose of your medicines. Make sure all of your doctors know every medicine you are taking (including dcar-ymz-uywttun medicines, vitamins, and supplements). Call your primary care provider before taking any new medicines (including over- the-counter medicines, vitamins, and supplements), because some of these may interact with your current medications, or may make your symptoms worse. Tell your primary care provider if you cannot afford your medications. Activity: You can do normal everyday activities as your body allows. Take rest breaks if you feel tired. Do not overexert. Stop activity if you have pain, shortness of breath or feel dizzy. Follow-up appointments: Make an appointment with your primary care physician within one week of discharge. A copy of this summary will be sent to them. Every time you see your primary care physician, or any other doctor, bring your medication list, and a list of questions. Pain management did discuss seeking care at a tertiary care center for continued care of your pain. Please discuss this with your PCP at your follow up visit. CONTACT YOUR PRIMARY CARE PROVIDER if you experience any of the following: Shortness of breath or difficulty breathing Fevers or chills Feeling tired with normal activity or experiencing dizziness or fainting Difficulty following your treatment plan, or difficulty taking medications CALL 911 OR GO TO THE EMERGENCY DEPARTMENT if you experience any of the following: Severe abdominal pain or nausea/vomiting Severe chest pain, or chest pain that radiates (moves) to your jaw or arm Sudden, severe shortness of breath or difficulty breathing Thank you for allowing us to participate in your care. Pending Studies at Discharge: No Stand-Alone Forms: [facility] [place], Smoking Cessation Medications and DC Order Prescriptions: New baclofen 10 mg Tablet 25 mg PO TID Qty: 90 0RF pregabalin [Lyrica] 50 mg Capsule 50 mg PO TID Qty: 60 0RF tramadol 50 mg tablet 50 mg PO Q6H PRN (Reason: pain) Qty: 7 0RF Continued cholecalciferol (vitamin D3) 25 mcg (1,000 unit) capsule 25 mcg PO DAILY Patient Comments: Unable to verify OTC meds at this date/time. 07/02/25 levothyroxine [Levoxyl] 137 mcg tablet 137 mcg PO DAILY Qty: 30 5RF Rx Instructions: brand name necessary bupropion HCl 150 mg tablet extended release 24 hr 150 mg PO QAM Rx Instructions: Take 150mg w/ 300mg to equal 450mg by mouth once every morning bupropion HCl 300 mg tablet extended release 24 hr 300 mg PO QAM Rx Instructions: Take 300mg w/ 150mg to equal 450mg by mouth once every morning ondansetron 4 mg tablet,disintegrating 4 mg PO Q6H PRN (Reason: nausea and vomiting) Qty: 15 0RF olanzapine 2.5 mg tablet 2.5 mg PO HS cyanocobalamin (vitamin B-12) [Vitamin B-12] 1,000 mcg Tablet 1,000 mcg PO DAILY Patient Comments: Unable to verify OTC meds at this date/time. 07/02/25 magnesium oxide 500 mg magnesium Tablet 500 mg PO DAILY Patient Comments: Unable to verify OTC meds at this date/time. 07/02/25 diazepam 5 mg tablet 10 mg PO HS Rx Instructions: MAY TAKE ADDITIIONAL 2.5-5 MG IN 24 HR PERIOD. PER PT "USUALLY TAKE 15 MG AT HS". ibuprofen [Advil] 200 mg Tablet 200 mg PO Q6H PRN (Reason: Pain) Patient Comments: Unable to verify OTC meds at this date/time. 07/02/25 diclofenac sodium 1 % Gel 4 g TOPICAL QID PRN (Reason: Pain) Patient Comments: Unable to verify OTC meds at this date/time. 07/02/25 Rx Instructions: apply to single elbow, wrist or hand; for hand includes palm/fingers/back of hand metoprolol succinate 25 mg tablet extended release 24 hr 25 mg PO QAM Patient Comments: Last filled 02/2025 x90 day supply. Unable to verify if pt still taking. Original Directions: 25mg by mouth once daily. 07/02/25 valacyclovir [Valtrex] 1 gram tablet 2,000 mg PO DIRECTED PRN (Reason: Outbreak) Rx Instructions: 2,000 mg orally q12 hrs x 1 day; Start KIERRA after start of symptoms dexamethasone 2 mg tablet 2 mg PO DIRECTED Rx Instructions: [place]ings test, take 11pm-12am (midnight) the night prior to AM fasting labs Discontinued pregabalin [Lyrica] 25 mg capsule 25 mg PO TID Qty: 90 1RF Rx Instructions: Start at 25mg by mouth at bedtime for 7 days, if tolerated then 25mg twice daily for 7 days, then if tolerated 25mg three times daily Discharge Orders: Discharge Order (Routine); Ordered 07/04/25 Ordered By: Karen Poe Admission Data Admit Date/Time: 07/02/25 10:26 Attending Provider: Anshul Ambrose Admit Provider: Anshul Ambrose Primary Care Provider: Luisa Roldan Other Providers: Anshul Ambrose; Dalton Mancini; Diana Nava; Adriel Daniels; Lawrence Bower; Juhi Valenzuela Other Interventions: Discharge Summary Assessment (RN) Last Done: 07/04/25 10:16 Hospital Stay Data Consultations 07/02/25 10:10 ED Decision to Admit Stat 07/02/25 10:28 Consult Pain Management Routine Diagnostic Imagining Performed 07/02/25 13:15 CT Abdomen and Pelvis [CT abd pelvis wo con] Routine Pending Results Patient Have Any Pending Studies at Discharge: No Discharge Instructions Given to Patient (Per Discharging Provider) Ms. Leyva, Ras were recently hospitalized for lower back pain. You were evaluated by pain management & had trigger point injections done on your lower back region. Medications: Your medication list has been reviewed and reconciled upon discharge to ensure accuracy and continuity of care. An updated list of all your medications is included with your hospital discharge paperwork. Please review this list closely, and make note of any changes. Tramadol 50mg has been sent to your pharmacy. Please use this every 6 hours as needed for breakthrough pain. Continue on Tylenol 1000mg every 8 hours scheduled to help stay ahead of pain. Your Lyrica has been increased to 50mg three times daily. You were placed on baclofen 25mg three times daily to help with muscle spasms. - please continue on this scheduled. You may continue to use a heating pad to your lower back to help with the pain. Take your medications as instructed; do not skip a dose of your medicines. Make sure all of your doctors know every medicine you are taking (including tesw-thr-lhfynrg medicines, vitamins, and supplements). Call your primary care provider before taking any new medicines (including over- the-counter medicines, vitamins, and supplements), because some of these may interact with your current medications, or may make your symptoms worse. Tell your primary care provider if you cannot afford your medications. Activity: You can do normal everyday activities as your body allows. Take rest breaks if you feel tired. Do not overexert. Stop activity if you have pain, shortness of breath or feel dizzy. Follow-up appointments: Make an appointment with your primary care physician within one week of discharge. A copy of this summary will be sent to them. Every time you see your primary care physician, or any other doctor, bring your medication list, and a list of questions. Pain management did discuss seeking care at a tertiary care center for continued care of your pain. Please discuss this with your PCP at your follow up visit. CONTACT YOUR PRIMARY CARE PROVIDER if you experience any of the following: Shortness of breath or difficulty breathing Fevers or chills Feeling tired with normal activity or experiencing dizziness or fainting Difficulty following your treatment plan, or difficulty taking medications CALL 911 OR GO TO THE EMERGENCY DEPARTMENT if you experience any of the following: Severe abdominal pain or nausea/vomiting Severe chest pain, or chest pain that radiates (moves) to your jaw or arm Sudden, severe shortness of breath or difficulty breathing Thank you for allowing us to participate in your care. Supervising Physician Co-Signing Physician Notes The patient was not seen by me. The chart was reviewed. Case discussed with LION Coto. Agree with assessment and plan Total Time Total Time Spent Total Time Spent (In Minutes): 45 Total Time Includes: Examination of the Patient, Discharge Planning, Medication Reconciliation and Communication With Other Providers Coding Level of Care Code 81262 INP/OBS DISCH >30 MIN Diagnoses Sacroiliitis M46.1 Lumbar paraspinal muscle spasm M62.830
== END 2025-07-04 10:51 | disposition home or self-care (01) ==
LOC: SUATTDRO → 3E 06:08 → ED 06:08 → 3E 12:16